=== PATIENT | female | born 1970 | race Caucasian/White ===

== ENCOUNTER 2017-06-04 22:40 | Inpatient (IN) | payer MEDICAID, SELFPAY ==
[2017-06-04 23:12] LABS: #Eosinphils 0.2 thou/uL (0.0-0.7); #Lymphocytes 1.5 thou/uL (1.20-3.40); #Monocytes 0.6 thou/uL (0.11-0.59); #Neutrophils 14.6 thou/uL (1.40-6.50); %Basophils 0.2 % (0.0-1.0); %Eosinophils 0.9 % (0.0-10.0); %Lymphocytes 8.8 % (21.0-51.0); %Monocytes 3.5 % (0.0-10.0); Hematocrit 34.1 % (36.0-47.0); Mean Platelet Volume 7.7 fL (7.4-10.4); Red Blood Cell (RBC) Count 3.76 mill/uL (4.20-5.40); White Blood Cell (WBC) Count 16.8 thou/uL (4.8-10.8)
[2017-06-04] MEDS ORDERED: Piperacillin/Tazobactam 4.5 GM VIAL ONE (23:21)
[2017-06-04] MEDS ORDERED: Promethazine HCl 25 MG/ML VIAL ONE (23:21)
[2017-06-04] MEDS ORDERED: Morphine Sulfate 2 MG/ML SYRINGE ONE (23:23)
[2017-06-04] MEDS ORDERED: Acetaminophen 325 MG TAB ONE (23:23)
[2017-06-04 23:29] LABS: Lactic Acid - Sepsis 2.1 mmol/L (0.5-2.2)
[2017-06-04 23:35] LABS: ALT (SGPT) 10 U/L (8-55); AST (SGOT) 15 U/L (5-34); Alkaline Phosphatase 136 U/L (40-150); Anion Gap 16 mmol/L (10-20); BUN (Urea Nitrogen) 20 mg/dL (7.0-18.7); Bilirubin, Total 0.8 mg/dL (0.2-1.2); Calc. Creatinine Clearance 0 mL/min (70-130); Calcium 9.2 mg/dL (7.8-10.44); Carbon Dioxide 22 mmol/L (22-29); Chloride 95 mmol/L (98-107); Estimated GFR-MDRD 32; Globulin 4.4 g/dL (2.4-3.5); Protein, Total 7.6 g/dL (6.0-8.3)
[2017-06-05] MEDS ORDERED: Vancomycin HCl 1.5 GM in Sodium Chloride 0.9% 250 ML 300 ML IVPB SCH (00:30)
[2017-06-05] MEDS ORDERED: Acetaminophen 325 MG TAB PO PRN (02:00)
[2017-06-05] MEDS ORDERED: Dextrose 5% in Water 1,000 ML IV PRN (02:00)
[2017-06-05] MEDS ORDERED: Dextrose 50% Abboject 50 ML SYRINGE SLOW IVP PRN (02:00)
[2017-06-05] MEDS: Ondansetron HCl/PF 4 MG/2 ML Vial IVP PRN ×3 (02:36→19:26)
[2017-06-05 02:56] VITALS: BMI 47.0
[2017-06-05 03:07] LABS: #Basophils 0.1 thou/uL (0.0-0.2); #Eosinphils 0.1 thou/uL (0.0-0.7); #Monocytes 1.1 thou/uL (0.11-0.59); #Neutrophils 13.6 thou/uL (1.40-6.50); %Basophils 0.5 % (0.0-1.0); %Eosinophils 0.7 % (0.0-10.0); %Lymphocytes 11.8 % (21.0-51.0); %Monocytes 6.3 % (0.0-10.0); Hematocrit 28.8 % (36.0-47.0); Red Blood Cell (RBC) Count 3.12 mill/uL (4.20-5.40); White Blood Cell (WBC) Count 16.8 thou/uL (4.8-10.8)
[2017-06-05] MEDS: Sodium Chloride 0.9% 1,000 ML IV SCH ×3 (03:10→20:32)
[2017-06-05 03:33] LABS: Anion Gap 15 mmol/L (10-20); BUN (Urea Nitrogen) 19 mg/dL (7.0-18.7); Calc. Creatinine Clearance 85 mL/min (70-130); Calcium 8.2 mg/dL (7.8-10.44); Carbon Dioxide 23 mmol/L (22-29); Chloride 98 mmol/L (98-107); Estimated GFR-MDRD 30
--- NOTE | 2017-06-05 03:43 | HP ---
DATE OF ADMISSION: 06/05/2017 CHIEF COMPLAINT: Pain and drainage from the left foot. HISTORY OF PRESENT ILLNESS: This is a 46-year-old pleasant lady, who was apparently in a usual stat e of health, had left fourth toe amputated, and I and D of the wound. Back in November, which apparent ly after wound care got better when she says that after she started walking on that foot, putting pr essure on that foot, around mid-April, it started opening up and started having some drainage. She went to the doctor, who told her to do wound care. She followed all the instructions once it becam e progressively worse, and for the last 2 days, this has been more swollen. Redness was spreading u p towards the knee and reports to have some fevers and chills too. For all this reason, she came in to the hospital. The patient denies any chest pain, shortness of breath, diarrhea, or dysuria. PAST MEDICAL HISTORY: Significant for diabetes, hypertension, hyperlipidemia, morbid obesity with e jection fraction of 53%, old stress test done on 07/2016 was negative. Also, complains of neuropath y, has no sensation in both the legs. PAST SURGICAL HISTORY: Multiple left knee surgery, arthroscopic diskectomy, appendectomy, cholecyst ectomy, , hysterectomy, left staghorn calculus, left fourth metatarsal removal, and I and D of wound of the left foot. SOCIAL HISTORY: Denies tobacco, alcohol, or recreational drug use. ALLERGIES: CODEINE. FAMILY HISTORY: Father has hypertension. MEDICATIONS: Please see MAR. REVIEW OF SYSTEMS: Significant for left foot redness, pain, and swelling, had some fever and chills , no headache, no appetite and latencies. No cough, no chest pain, diarrhea, dysuria or polyuria. No memory or mood changes. No neck pain. PHYSICAL EXAMINATION: VITAL SIGNS: Blood pressure 148/68, respirations 18, temperature 98, comfortably breathing on room air. GENERAL: Patient is lying in bed, in no apparent distress because of the pain. HEENT: Atraumatic, normocephalic. Pupils equally round, reactive to light. Extraocular movements intact. Mucous membranes moist. NECK: Supple. No JVD. CHEST: Breath sounds. There are no rales or rhonchi. CARDIOVASCULAR: S1, S2, no murmurs or gallops. ABDOMEN: Soft, obese. EXTREMITIES: Left foot is swollen with erythema spreading towards the knee. The wound was draining serosanguineous material. The patient's right side appears to be normal with no cyanosis, clubbing , or edema. The patient's peripheral pulses are present. LABORATORY DATA: WBC count is 16, hemoglobin is 11. Lactic acid was 2.1. Sodium is 129, creatinin e is 1.7. ASSESSMENT AND PLAN: 1. Diabetic wound of left foot. We will do wound cultures, blood cultures, IV antibiotics, vancomy ramiro, and Zosyn. We will consult Dr. Rivera in the morning and will consult Wound Care. 2. Hyponatremia. We will give the patient some IV fluids. 3. Acute renal failure, earlier creatinine in 2016 was 0.9. We will gently hydrate the patient and follow the creatinine. 4. Morbid obesity. The patient will be counseled diabetes on insulin sliding scale. 5. Hypertension. We will continue home medications and p.r.n. hydralazine. 6. Hyperlipidemia, stable. 7. Peripheral neuropathy, stable. Lovenox for deep venous thrombosis prophylaxis. I will work wit h the retail client solutions consultant for further caring for the patient.
[2017-06-05] MEDS: Morphine Sulfate 2 MG/ML SYRINGE SLOW IVP PRN ×3 (03:44→12:14)
[2017-06-05] MEDS: Piperacillin/Tazobactam 3.375 GM in Sodium Chloride 0.9% 100 ML IVPB SCH ×3 (06:04→17:32)
[2017-06-05] MEDS: Insulin Regular 300 UNITS/3 ML VIAL SC PRN ×4 (06:06→20:31)
--- NOTE | 2017-06-05 07:58 | RAD ---
CHEST 1 VIEW: HISTORY: Wound on bottom of foot. Emergency exam. COMPARISON: Chest 1 view, July 30, 2016. FINDINGS: Lungs are clear. No pneumothorax or effusion. Cardiac silhouette and mediastinal contours are norm al for technique. No displaced rib fracture. IMPRESSION: No acute intrathoracic abnormality. POS: [facility]
[2017-06-05] MEDS: Famotidine 20 MG TAB PO SCH (09:37)
[2017-06-05] MEDS: Enoxaparin Sodium 30 MG/0.3 ML SYRINGE SC SCH (09:37)
[2017-06-05] MEDS: Docusate 100 MG CAP PO SCH ×2 (09:37→20:30)
[2017-06-05] MEDS: Gabapentin 400 MG CAP PO SCH ×3 (09:37→20:30)
--- NOTE | 2017-06-05 10:09 | CT ---
PRELIMINARY REPORT/[facility]/EMERGENCY AFTER HOURS PROCEDURE: EXAM: CT Left Lower Extremity With Intravenous Contrast, Foot CLINICAL HISTORY: 46 years old, female; Pain; Foot; Left; Patient HX: R/O abscess TECHNIQUE: Axial computed tomography images of the left foot with intravenous contrast. CONTRAST: 60 mL of ISOVUE administered intravenously. COMPARISON: No relevant prior studies available. FINDINGS: Bones/joints: There is small lucency is around the osseous structures. There are destructive changes in the tarsal and tarsometatarsal joints. No acute fracture. No dislocation. Soft tissues: There is a large skin defect in the plantar aspect of the foot. There are smaller parth cent defects. There is subdjacent infiltrating soft tissue. There is diffuse soft tissue edema in th e foot. Calcifications in the soft tissues of the foot. No radiopaque foreign body. Other findings: The 4th digit is absent. IMPRESSION: 1. Destructive osseous changes in the foot. 2. Numerous osseous lucencies that may be due to osteoporosis or metastatic disease. 3. Large ulcer with underlying soft tissue that may represent a phlegmon no granulation tissue. No f luid collection is visible. 4. Soft tissue edema. Thank you for allowing us to participate in the care of your patient. Dictated and Authenticated by: Shashank Roth MD 06/05/2017 2:15 AM Central Time ([place] \T\ [place]) FINAL REPORT CT LEFT LOWER EXTREMITY WITH CONTRAST: HISTORY: Left foot wound. Infection. COMPARISON: None. FINDINGS: Ankle mortise is congruent. There are large erosions throughout the mid foot. There is osteopenia throughout the hindfoot and m id foot. There is subluxation at the Lisfranc interval. Large erosions are noted of the 2nd-5th tarsometatar alfonso joints. There is osseous destruction and debris. SOFT TISSUES: There is a large plantar ulcer with phlegmonous material extending into the muscular into the mid fo ot. Extensive anterolateral soft tissue edema. There appears to be a prior amputation of the 4th metatarsophalangeal joint. IMPRESSION: Large plantar ulcer of the mid foot with extensive osseous debris and destruction. This is felt to most likely represent an infected Charcot arthropathy. POS: [facility]
--- NOTE | 2017-06-05 12:08 | CON ---
DATE OF CONSULTATION: 06/05/2017 REASON FOR CONSULTATION: Left foot inflammatory process. HISTORY OF PRESENT ILLNESS: A 46-year-old patient who has a history of type 2 diabetes mellitus wit h neuropathy, hypertension, hyperlipidemia, obesity, and prior left fourth toe amputation which was carried out I believe in [place] earlier this year who developed a rapidly progressive ulceratio n in the bottom aspect of the left foot plantar aspect. The patient was managed with wound care lore ne, but then over the past few days, the inflammatory process has markedly worsened with redness ext ending towards the left knee. She has had associated fever and chills and therefore she has been ad mitted. Initial findings with BP 140/60, respirations 18, temperature 98, in no distress. NECK: Supple. LUNGS: With symmetric clear breath sounds. HEART: S1, S2 with regular rate. ABDOMEN: Soft. EXTREMITIES: Left foot is swollen with erythema spreading towards the knee. There is an open wound in the bottom aspect of the left foot which is described below. LABORATORY DATA: White cell count 16,000 and lactic acid 2.1, creatinine 1.7, which is higher than her recent baseline. A CT of the foot has been just recently completed and showed destructive osseo us changes in the foot and tarsometatarsal joints. There is evidence of phlegmonous material extend ing into the muscular layers into the mid foot region. REVIEW OF SYSTEMS: Currently, she appears in no distress. She has pain mostly localized to the lef t leg actually. The foot is pretty much senseless due to neuropathy. No headaches, visual symptoms , sore throat, odynophagia, dysphagia, no cough or sputum production or chest pain, no abdominal jatin n or diarrhea. No genitourinary symptoms. The left knee is somewhat painful, but more of the pain is localized to the leg actually than the knee itself. No neurological symptoms other than the neur opathic symptoms. PAST MEDICAL HISTORY: Type 2 diabetes, obesity, neuropathy, left 4th toe amputation, negative stres s test completed in 2016. PAST SURGICAL HISTORY: Knee replacement left side, cholecystectomy, , hysterectomy, stagho rn calculus removal. SOCIAL HISTORY: Quit smoking 18 years prior to this visit. No alcoholic beverage use. Lives in [facility] and commutes to this area to spend time with family members. ALLERGIES: CODEINE with mostly gastrointestinal symptoms. FAMILY HISTORY: Hypertension. CURRENT MEDICATIONS: Norvasc, Colace, Cymbalta, Lovenox, Pepcid, Neurontin, Apresoline, Zosyn and s he received 1 dose of vancomycin. PHYSICAL EXAMINATION: VITAL SIGNS: T-max 98.8, BP 120/74, pulse of 93-100, respiratory rate 20-22, O2 saturation 97%. GENERAL: Appears in no distress. SKIN: Shows the areas of scattered erythema in a circumferential distribution left leg and also eduardo thema in the plantar aspect of the left foot. There is an open wound in the left foot measuring abo ut 3 cm, round shaped with a thick callus surrounding it. The base is about 50% red tissue and then 50% of grayish tissue, no bone exposure is noted. No lymphadenopathy. HEENT: Noncontributory. NECK: Supple, no jugular venous distention. LUNGS: With symmetric clear breath sounds. HEART: S1, S2, regular rate. No S3 or S4. ABDOMEN: Soft, not distended or tender. No ascites. No bladder distention. EXTREMITIES: The left knee arthroplasty site has somewhat diminished range of motion, most likely d ue to the edema. The knee itself does not appear painful to the patient. The leg is quite painful to palpation, though. Microbiology data; we have pending blood cultures at this time. LABORATORY: White cell count 16.8, hemoglobin 9.8, platelets 247. Sodium 132, creatinine 1.83. ASSESSMENT: 1. Type 2 diabetes with severe neuropathy. 2. Chronic plantar ulcer, left foot, with now inflammatory complications. 3. Possible associated Charcot's arthropathy mid foot region and foot, left side. 4. Cellulitis, left leg. DISCUSSION: The process, appears to be quite extensive. An MRI would give us a better resolution i n terms of presence of an abscess and most likely she will need surgical debridement, ideally explor ation of the plantar aspect and see if we could be managed conservatively short of amputation. Cont inue the current regimen and continue vancomycin dosing per pharmacy schedule according to trough le vels with a target 15-20 mcg per mL. Monitor blood cultures. She will need an arterial duplex eduardo dy to evaluate the vascular supply.
--- NOTE | 2017-06-05 13:50 | PDOC.PN ---
- Subjective Encounter Start Date: 06/05/17 Encounter Start Time: 13:47 Subjective: pain in R foot - Objective MAR Reviewed: Yes Vital Signs & Weight: Vital Signs (12 hours) Temp Pulse Resp BP Pulse Ox 06/05/17 11:27 99 F 105 H 22 H 130/83 98 06/05/17 07:48 98.5 F 103 H 22 H 128/74 97 06/05/17 04:00 98.8 F 101 H 20 121/74 97 06/05/17 02:55 98.2 F 93 20 122/78 98 06/05/17 02:20 98.2 F 93 20 98 Weight Admit Weight 309 lb 6.4 oz Weight 309 lb 6.4 oz I&O: 06/04/17 06/05/17 06/06/17 06:59 06:59 06:59 Intake Total 1047 Balance 1047 Result Diagrams: 06/05/17 02:51 06/05/17 02:51 Additional Labs: Accuchecks 06/05/17 06/05/17 06/05/17 11:29 05:18 02:33 POC Glucose 446 H 447 H 460 H Phys Exam - Physical Examination Constitutional: NAD Neck: no JVD Respiratory: clear to auscultation bilateral Cardiovascular: RRR, no significant murmur Gastrointestinal: soft, non-tender, positive bowel sounds 2+ edema Deviation from normal: erythema from ankle to knee on left Dx/Plan (1) Cellulitis and abscess of lower extremity Code(s): L03.119 - CELLULITIS OF UNSPECIFIED PART OF LIMB; L02.419 - CUTANEOUS ABSCESS OF LIMB, UNSPECIFIED Status: Acute (2) Diabetes mellitus type II, uncontrolled Code(s): E11.65 - TYPE 2 DIABETES MELLITUS WITH HYPERGLYCEMIA Status: Chronic Qualifiers: Diabetes mellitus complication detail: with polyneuropathy (3) HTN (hypertension) Code(s): I10 - ESSENTIAL (PRIMARY) HYPERTENSION Status: Chronic Qualifiers: Hypertension type: essential hypertension Qualified Code(s): I10 - Essential (primary) hypertension Comment: Labile, resume home meds, serial monitoring (4) Hyperlipidemia Code(s): E78.5 - HYPERLIPIDEMIA, UNSPECIFIED Status: Chronic Comment: Recommend statin for d/c (5) Morbid obesity Code(s): E66.01 - MORBID (SEVERE) OBESITY DUE TO EXCESS CALORIES Status: Chronic Comment: Caloric restriction, heart healthy/ADA diet - Plan cont iv antibx -: apprciate Dr Rivera input- MRI foot ordered -: cont iv antibx, anagesia -: accu/ss/ etc -: selected home meds * .
[2017-06-05 13:55] LABS: Hemoglobin A1c 13.6 % (4.0-6.0)
[2017-06-05] MEDS: Promethazine HCl 25 MG/ML VIAL IM/IV PRN (16:12)
[2017-06-05] MEDS ORDERED: ISOVUE-370 76%-LOCM 1 ML ONE (16:22)
[2017-06-05] MEDS ORDERED: Non-Formulary Item 1 EACH (Oxycodone Hcl/Acetaminophen [Percocet] 1 TABLET) PO SCH (17:00)
[2017-06-05] MEDS: oxyCODONE 5 MG TAB PO SCH ×2 (17:34→20:30)
[2017-06-05] MEDS: Acetaminophen 325 MG TAB PO SCH ×2 (17:34→20:30)
[2017-06-05] MEDS: Insulin Detemir 100 UNITS/ML 40 UNITS in Pre-Filled Syringe 1 EACH SC SCH (20:31)
--- NOTE | 2017-06-05 20:50 | MRI ---
LEFT FOOT MRI WITHOUT IV CONTRAST: History: 46-year old female with left foot ulcer and concern for abscess. Patient has a plantar wound, histor y of prior surgery. Comparison: CT scan, 06-05-17. FINDINGS: There is a large plantar ulcer and associated open wound and scar. There is focal metal susceptibili ty artifact from the soft tissue in the mid plantar region at approximately the fourth metatarsal. T here is disruption of the midfoot joint with extensive erosions and osteopenia and extensive fragmen tation and focal calcifications or ossifications. There have been amputation changes of the fore toe at the distal fourth metatarsal. There is fairly extensive abnormal soft tissue changes within the plantar surface of the foot deep to the large ulcer and wound, but no evidence for a focal drainable abscess. There is no significant abnormal T2 hyperintense or T1 hypointense changes within the bone s of the midfoot immediately adjacent to this large wound. There are, however, some abnormal T1 hypointensity and T2 hyperintensity changes involving the dista l second and third metatarsal heads. These are concerning for at least significant nonspecific ostei tis and could well represent early osteomyelitis given both T1 and T2 changes. I do not see a defini te open wound in association with these two toes, however. There is prominent anterior foot and lowe r ankle soft tissue swelling and edematous changes. IMPRESSION: Marked midfoot bony deformity with subluxation/dislocation of the mid foot evidence for severe Charc ot joint changes. Large plantar ulcer or wound with some abnormal soft tissue signal extending up to near the midfoot bony structures but no evidence of a focal drainable abscess. Abnormal T2 hyperint ensity involving the midfoot intrinsic muscles. The peroneus longus tendon appears to be disrupted d istally at the level of the midfoot. Abnormal T2 hyperintense and T1 hypointense bony changes involv ing the second and third metatarsal heads, worrisome for at least significant nonspecific osteitis w ith the possibility of early osteomyelitis not being excluded although I do not identify a specific adjacent ulcer. Some nonspecific T2 hyperintensity T1 hypointense changes in the subchondral regions of the tibiotalar joint, the fibular talar joint, the medial subtalar joint and lateral subtalar dontae int, nonspecific. Possibly nonspecific marrow reaction changes in the midfoot. Metal susceptibility artifact within the plantar soft tissues of the midfoot. No evidence for drainable abscess. POS: [facility]
[2017-06-06] MEDS: Promethazine HCl 25 MG/ML VIAL IM/IV PRN ×2 (00:03→08:30)
[2017-06-06] MEDS: Piperacillin/Tazobactam 3.375 GM in Sodium Chloride 0.9% 100 ML IVPB SCH ×4 (00:04→17:28)
[2017-06-06] MEDS: Ondansetron HCl/PF 4 MG/2 ML Vial IVP PRN ×2 (03:22→21:12)
[2017-06-06] MEDS: Insulin Regular 300 UNITS/3 ML VIAL SC PRN (05:17)
[2017-06-06 05:23] LABS: Anion Gap 15 mmol/L (10-20); BUN (Urea Nitrogen) 20 mg/dL (7.0-18.7); Calc. Creatinine Clearance 82 mL/min (70-130); Calcium 8.8 mg/dL (7.8-10.44); Carbon Dioxide 21 mmol/L (22-29); Chloride 101 mmol/L (98-107); Estimated GFR-MDRD 28
[2017-06-06 05:53] LABS: Band 6 % (5-11); Hematocrit 31.3 % (36.0-47.0); Mean Platelet Volume 8.6 fL (7.4-10.4); Neutrophil 77 % (42-75); Red Blood Cell (RBC) Count 3.37 mill/uL (4.20-5.40); White Blood Cell (WBC) Count 12.5 thou/uL (4.8-10.8)
[2017-06-06] MEDS ORDERED: Temazepam 15 MG CAP PO PRN (07:52)
[2017-06-06] MEDS ORDERED: Chloraseptic Spray 180 ml Bottle PO PRN (07:52)
[2017-06-06] MEDS ORDERED: Sodium Chloride 0.65% Nasal 44 ML BOT EA NARE PRN (07:52)
[2017-06-06] MEDS ORDERED: Eucerin (Mineral Oil/Petrolatum,White) 30 gm Jar TOP PRN (07:52)
[2017-06-06] MEDS ORDERED: Loperamide HCl 2 MG CAP PO PRN (07:52)
[2017-06-06] MEDS ORDERED: Artificial Tears 18 DROP/0.9 ML EA EYE PRN (07:52)
[2017-06-06] MEDS ORDERED: Ondansetron ODT 4 MG TAB PO PRN (07:52)
[2017-06-06] MEDS ORDERED: Milk Of Magnesia 30 ML UDCUP PO PRN (07:52)
[2017-06-06] MEDS ORDERED: Senokot 8.6 MG TAB PO PRN (07:52)
[2017-06-06] MEDS ORDERED: Mag-Al 1200 mg/1200 mg/30 ML UDCUP PO PRN (07:52)
[2017-06-06] MEDS ORDERED: Diabetic Tussin 200 MG/10 ML UDCUP PO PRN (07:52)
[2017-06-06] MEDS ORDERED: Loratadine 10 MG TAB PO PRN (07:52)
[2017-06-06] MEDS ORDERED: HumaLOG 300 UNITS/3 ML VIAL SC PRN (07:55)
[2017-06-06] MEDS: Sodium Chloride 0.9% 1,000 ML IV SCH ×4 (08:00→21:17)
[2017-06-06] MEDS: Acetaminophen 325 MG TAB PO SCH ×4 (08:30→21:02)
[2017-06-06] MEDS: oxyCODONE 5 MG TAB PO SCH ×4 (08:31→21:11)
[2017-06-06] MEDS ORDERED: Lisinopril/Hydrochlorothiazide 10 mg/12.5 mg Tablet PO SCH (09:00)
[2017-06-06] MEDS: Docusate 100 MG CAP PO SCH ×2 (10:08→21:02)
[2017-06-06] MEDS: Insulin Detemir 100 UNITS/ML 40 UNITS in Pre-Filled Syringe 1 EACH SC SCH ×2 (10:09→21:02)
[2017-06-06] MEDS: Gabapentin 100 MG CAP PO SCH ×3 (10:09→21:01)
[2017-06-06] MEDS: Famotidine 20 MG TAB PO SCH (10:09)
[2017-06-06] MEDS: Enoxaparin Sodium 30 MG/0.3 ML SYRINGE SC SCH (10:12)
--- NOTE | 2017-06-06 11:24 | PDOC.PN ---
- Subjective Encounter Start Date: 06/06/17 Encounter Start Time: 07:50 -: old records requested/rev Patient seen and examined. No new complaints. No overnight events - Objective MAR Reviewed: Yes Vital Signs & Weight: Vital Signs (12 hours) Temp Pulse Resp BP BP Pulse Ox 06/06/17 10:08 100 124/73 06/06/17 07:55 98.6 F 100 16 124/73 100 06/06/17 04:00 99.7 F H 112 H 20 119/76 94 L 06/06/17 02:19 92 L 06/06/17 00:00 99.1 F 108 H 20 142/98 H 92 L Weight Admit Weight 309 lb 6.4 oz Weight 309 lb 6.4 oz I&O: 06/05/17 06/06/17 06/07/17 06:59 06:59 06:59 Intake Total 1047 1776 Balance 1047 1776 Result Diagrams: 06/06/17 04:05 06/06/17 04:05 Additional Labs: Accuchecks 06/06/17 06/05/17 06/05/17 04:24 20:05 16:44 POC Glucose 280 H 474 H 445 H 06/05/17 11:29 POC Glucose 446 H Radiology Reviewed by me: Yes (MRI) Phys Exam - Physical Examination Constitutional: NAD HEENT: PERRLA, moist MMs, sclera anicteric Neck: no JVD, supple Respiratory: no wheezing, no rales, no rhonchi Cardiovascular: RRR, no significant murmur, no rub Gastrointestinal: soft, non-tender, no distention, positive bowel sounds morbid obesity Musculoskeletal: edema present left foot with dressing Neurological: non-focal, normal sensation Lymphatic: no nodes Psychiatric: normal affect, A&O x 3 Skin: no rash, normal turgor Dx/Plan (1) Acute kidney failure Status: Acute (2) Cellulitis and abscess of lower extremity Code(s): L03.119 - CELLULITIS OF UNSPECIFIED PART OF LIMB; L02.419 - CUTANEOUS ABSCESS OF LIMB, UNSPECIFIED Status: Acute (3) Hyperglycemia due to type 2 diabetes mellitus Code(s): E11.65 - TYPE 2 DIABETES MELLITUS WITH HYPERGLYCEMIA Status: Acute (4) Hyponatremia Code(s): E87.1 - HYPO-OSMOLALITY AND HYPONATREMIA Status: Acute (5) Sepsis with acute organ dysfunction Code(s): A41.9 - SEPSIS, UNSPECIFIED ORGANISM; R65.20 - SEVERE SEPSIS WITHOUT SEPTIC SHOCK Status: Acute (6) Anxiety and depression Code(s): F41.8 - OTHER SPECIFIED ANXIETY DISORDERS Status: Chronic (7) Diabetes mellitus type II, uncontrolled Code(s): E11.65 - TYPE 2 DIABETES MELLITUS WITH HYPERGLYCEMIA Status: Chronic Qualifiers: Diabetes mellitus complication detail: with polyneuropathy (8) HTN (hypertension) Code(s): I10 - ESSENTIAL (PRIMARY) HYPERTENSION Status: Chronic Qualifiers: Hypertension type: essential hypertension Qualified Code(s): I10 - Essential (primary) hypertension Comment: (9) Hyperlipidemia Code(s): E78.5 - HYPERLIPIDEMIA, UNSPECIFIED Status: Chronic Comment: (10) Morbid obesity with BMI of 45.0-49.9, adult Code(s): E66.01 - MORBID (SEVERE) OBESITY DUE TO EXCESS CALORIES; Z68.42 - BODY MASS INDEX (BMI) 45.0-49.9, ADULT Status: Chronic - Plan cont current plan of care, continue antibiotics * continue zosyn * wound care * ID consulted. * follow culture * medication reviewed as below * symptomatic treatment * selected home medication Review of Systems - Review of Systems ENT: negative: Ear Pain, Ear Discharge, Nose Pain, Nose Discharge, Nose Congestion, Mouth Pain, Mouth Swelling, Throat Pain, Throat Swelling, Other Respiratory: negative: Cough, Dry, Shortness of Breath, Hemoptysis, SOB with Excertion, Pleuritic Pain, Sputum, Wheezing Cardiovascular: negative: Chest Pain, Palpitations, Orthopnea, Paroxysmal Noc. Dyspnea, Edema, Light Headedness, Other Gastrointestinal: negative: Nausea, Vomiting, Abdominal Pain, Diarrhea, Constipation, Melena, Hematochezia, Other Genitourinary: negative: Dysuria, Frequency, Incontinence, Hematuria, Retention , Other Musculoskeletal: negative: Neck Pain, Shoulder Pain, Arm Pain, Back Pain, Hand Pain, Leg Pain, Foot Pain, Other - Medications/Allergies Allergies/Adverse Reactions: Allergies Allergy/AdvReac Type Severity Reaction Status Date / Time codeine AdvReac Verified 06/05/17 03:31 Medications: Current Medications Acetaminophen (Tylenol) 650 mg PO Q4H PRN PRN Reason: Headache/Fever or Pain Acetaminophen (Tylenol) 325 mg PO QID [facility] Last Admin: 06/06/17 08:30 Dose: 325 mg Al Hydroxide/Mg Hydroxide (Maalox) 15 ml PO Q4H PRN PRN Reason: Heartburn or Indigestion Amlodipine Besylate (Norvasc) 5 mg PO DAILY [facility] Last Admin: 06/06/17 10:08 Dose: 5 mg Artificial Tears (Tears Naturale) 0 drop EA EYE PRN PRN PRN Reason: Dry Eyes Dextrose/Water (Dextrose 50%) 25 gm SLOW IVP PRN PRN PRN Reason: Hypoglycemia Docusate Sodium (Colace) 100 mg PO BID [facility] Last Admin: 06/06/17 10:08 Dose: 100 mg Duloxetine HCl (Cymbalta) 60 mg PO DAILY [facility] Last Admin: 06/06/17 10:08 Dose: 60 mg Enoxaparin Sodium (Lovenox) 30 mg SC 09 [facility] Last Admin: 06/06/17 10:12 Dose: 30 mg Famotidine (Pepcid) 20 mg PO DAILY [facility] Last Admin: 06/06/17 10:09 Dose: 20 mg Gabapentin (Neurontin) 100 mg PO TID [facility] Last Admin: 06/06/17 10:09 Dose: 100 mg Glucagon (Glucagon) 1 mg IM PRN PRN PRN Reason: Hypoglycemia Guaifenesin (Robitussin Sf) 200 mg PO Q4H PRN PRN Reason: Cough Hydralazine HCl (Apresoline) 10 mg SLOW IVP Q4H PRN PRN Reason: Systolic BP > 180 Dextrose/Water (D5w) 1,000 mls @ 0 mls/hr IV .Q0M PRN; As Directed PRN Reason: Hypoglycemia Piperacillin Sod/Tazobactam (Sod 3.375 gm/ Sodium Chloride) 100 mls @ 200 mls/ hr IVPB Q6HR [facility] Stop: 06/10/17 06:01 Last Admin: 06/06/17 05:17 Dose: 100 mls Insulin Detemir 40 units/ (Miscellaneous Medication) 0.4 mls @ 0 mls/hr SC BID [facility] Last Admin: 06/06/17 10:09 Dose: 0.4 mls Sodium Chloride (Normal Saline 0.9%) 1,000 mls @ 125 mls/hr IV .Q8H [facility] Last Admin: 06/06/17 10:42 Dose: 1,000 mls Insulin Human Lispro (Humalog) 0 units SC .AGGRESSIVE SLIDING PRN PRN Reason: Aggressive Correctional Scale Insulin Human Lispro (Humalog) 0 units SC .BEDTIME SLIDING SC PRN PRN Reason: Bedtime Correctional Scale Loperamide HCl (Imodium) 2 mg PO PRN PRN PRN Reason: Diarrhea/Loose Stools Loratadine (Claritin) 10 mg PO DAILYPRN PRN PRN Reason: Sinus Symptoms Magnesium Hydroxide (Milk Of Magnesium) 30 ml PO DAILYPRN PRN PRN Reason: Constipation Mineral Oil/White Petrolatum (Eucerin Cream) 0 gm TOP BIDPRN PRN PRN Reason: Dry Skin Morphine Sulfate (Morphine Sulfate) 1 mg SLOW IVP Q3H PRN PRN Reason: Pain Last Admin: 06/05/17 12:14 Dose: 1 mg Morphine Sulfate (Morphine Sulfate) 4 mg SLOW IVP Q4H PRN PRN Reason: Pain Last Admin: 06/06/17 10:43 Dose: 4 mg Ondansetron HCl (Zofran) 4 mg IVP Q6H PRN PRN Reason: Nausea/Vomiting Last Admin: 06/06/17 03:22 Dose: 4 mg Ondansetron HCl (Zofran Odt) 4 mg PO Q6H PRN PRN Reason: Nausea/Vomiting Oxycodone HCl (Oxycodone Ir) 10 mg PO QID [facility] Last Admin: 06/06/17 08:31 Dose: 10 mg Phenol (Chloraseptic [place] 180 Ml Bot) 0 ml PO PRN PRN PRN Reason: Sore Throat Promethazine HCl (Phenergan) 25 mg IM/IV Q6H PRN PRN Reason: Nausea/Vomiting Last Admin: 06/06/17 08:30 Dose: 25 mg Senna (Senokot) 2 tab PO HSPRN PRN PRN Reason: Constipation Sodium Chloride ([place] Nasal [place] 0.65%) 0 ml EA NARE QIDPRN PRN PRN Reason: Nasal Congestion Sodium Chloride (Flush - Normal Saline) 10 ml IVF Q12HR [facility] Last Admin: 06/06/17 10:12 Dose: Not Given Sodium Chloride (Flush - Normal Saline) 10 ml IVF PRN PRN PRN Reason: Saline Flush Temazepam (Restoril) 15 mg PO HSPRN PRN PRN Reason: Insomnia
[2017-06-06] MEDS: HumaLOG 300 UNITS/3 ML VIAL SC PRN ×2 (12:16→17:30)
[2017-06-06] MEDS: PROMETHAZINE HCL IVPB PRN (15:40)
[2017-06-06] MEDS: SODIUM CHLORIDE IVPB PRN (15:40)
[2017-06-06] MEDS: ADMIXTURE FEE IVPB PRN (15:40)
[2017-06-06 16:07] LABS: Bilirubin Negative (Negative); Blood, Urine Small (Negative); Glucose, Urine (Dipstick) >=1000 mg/dL (Negative); Ketone, Urine Negative (Negative); Nitrite Negative (Negative); Protein, Urine (Dipstick) 300 mg/dL (Neg-Trace); Urobilinogen 0.2 mg/dL (0.2-1.0)
[2017-06-06 16:26] LABS: Hyaline Casts/LPF 7-10 HYALINE CAST LPF (0-3 Hyaline); Squamous Epithelial 21-50 HPF (0-3)
[2017-06-06 16:52] LABS: Bacteria/HPF 2+ HPF (None Seen); RBC/HPF 0-3 HPF (0-3); Yeast-All Forms None Seen HPF (None Seen)
[2017-06-07] MEDS: Piperacillin/Tazobactam 3.375 GM in Sodium Chloride 0.9% 100 ML IVPB SCH ×4 (00:02→17:42)
[2017-06-07] MEDS: Promethazine HCl 25 MG/ML VIAL IM/IV PRN (01:18)
--- NOTE | 2017-06-07 02:06 | PRG ---
DATE OF SERVICE: 06/06/2017 SUBJECTIVE: Ms. Wilkes is having episodes of nausea when she tries to sit up or stand up. A very dayna rly reproducible symptoms, also throbbing of the left leg, not hurting as much as before though. No shortness of breath or chest pain, no diarrhea. Voiding without difficulty. OBJECTIVE: VITAL SIGNS: T-max 99.7, blood pressure 130/80, pulse 91-108, respirations 18 and O2 sat 96%. GENERAL: Patient was sleeping when I came in the room, but she was easily arousable, did not appear in acute distress, somewhat flushed facial skin. HEENT: Ocular movements are conjugate. LUNGS: With symmetric air entry. HEART: S1 and S2. Regular rate without murmurs. ABDOMEN: Soft. Not distended or tender. EXTREMITIES: Left leg with marked improvement in erythema. The left knee range of motion is painle ss. Left foot has less erythema as well, still with swelling noted before with plantar ulcer with 1 00% granulating area. LABORATORY DATA: Showed a white cell count down to 12.5, hemoglobin 10.7 and platelets 265. Sodium 132 and creatinine 1.9, which is stable from prior values. Microbiology from the foot, this is fro m the ulcer itself, it could be a colonization of the sample of the surface of the ulcer rather than the represented true pathogen. Three different gram-negative rods isolated. Two sets of blood cul tures thus far negative. There is an MRI from 06/05 and this shows marked mid foot bony deformity w ith subluxation and dislocation, which has evidence of severe Charcot joint changes. There is abnor mal soft tissue signal extending up near the mid foot bony structures, but no evidence of a focal dr tiny abscess. There is disruption of some tendon in the mid foot region and second and third met atarsals may have osteitis. Although, there is no ulceration near it, it is more likely to represen t also areas of Charcot change. 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 The changes in the CT scan in the face of the current MRI are more likely a reflection of Charcot associated arthropathy rather than infection and I would treat for the time being as such with just antimicrobial therapy. There is a high like lihood of continuing complications in the left foot in view of the severe neuropathy and Charcot and this will have a high risk for eventual amputation. In terms of antimicrobial therapy, continue th e current regimen and eventually transition to dual regimen depending on clinical response. Another option will be to continue IV therapy, but we will see what the susceptibilities of the organisms i solated are and make plans according to those.
[2017-06-07] MEDS: Ondansetron HCl/PF 4 MG/2 ML Vial IVP PRN ×2 (05:17→11:45)
[2017-06-07 05:29] LABS: #Eosinphils 0.2 thou/uL (0.0-0.7); #Lymphocytes 1.6 thou/uL (1.20-3.40); #Monocytes 0.6 thou/uL (0.11-0.59); #Neutrophils 9.6 thou/uL (1.40-6.50); %Basophils 0.4 % (0.0-1.0); %Eosinophils 1.6 % (0.0-10.0); %Lymphocytes 13.1 % (21.0-51.0); %Monocytes 4.7 % (0.0-10.0); Hematocrit 32.7 % (36.0-47.0); Mean Platelet Volume 7.7 fL (7.4-10.4); Red Blood Cell (RBC) Count 3.46 mill/uL (4.20-5.40)
[2017-06-07 05:38] LABS: Hemoglobin A1c 13.2 % (4.0-6.0)
[2017-06-07 05:53] LABS: ALT (SGPT) 24 U/L (8-55); AST (SGOT) 29 U/L (5-34); Alkaline Phosphatase 142 U/L (40-150); Anion Gap 15 mmol/L (10-20); BUN (Urea Nitrogen) 24 mg/dL (7.0-18.7); Bilirubin, Total 0.3 mg/dL (0.2-1.2); Calc. Creatinine Clearance 81 mL/min (70-130); Calcium 9.2 mg/dL (7.8-10.44); Carbon Dioxide 21 mmol/L (22-29); Chloride 105 mmol/L (98-107); Estimated GFR-MDRD 28; Globulin 4.4 g/dL (2.4-3.5); Phosphorus 4.5 mg/dL (2.3-4.7); Protein, Total 7.3 g/dL (6.0-8.3)
[2017-06-07] MEDS: ADMIXTURE FEE IVPB PRN ×3 (07:57→21:25)
[2017-06-07] MEDS: Sodium Chloride 0.9% 1,000 ML IV SCH ×2 (07:57→17:41)
[2017-06-07] MEDS: PROMETHAZINE HCL IVPB PRN ×3 (07:57→21:25)
[2017-06-07] MEDS: SODIUM CHLORIDE IVPB PRN ×3 (07:57→21:25)
[2017-06-07] MEDS: Enoxaparin Sodium 30 MG/0.3 ML SYRINGE SC SCH (07:59)
[2017-06-07] MEDS: Gabapentin 100 MG CAP PO SCH ×3 (08:00→21:21)
[2017-06-07] MEDS: oxyCODONE 5 MG TAB PO SCH ×4 (08:00→21:21)
[2017-06-07] MEDS: Docusate 100 MG CAP PO SCH ×2 (08:02→21:21)
[2017-06-07] MEDS: Famotidine 20 MG TAB PO SCH (08:02)
[2017-06-07] MEDS: Acetaminophen 325 MG TAB PO SCH (08:18)
[2017-06-07] MEDS: Insulin Detemir 100 UNITS/ML 40 UNITS in Pre-Filled Syringe 1 EACH SC SCH ×2 (09:08→21:21)
[2017-06-07] MEDS ORDERED: Bisacodyl 10 MG SUPP PR PRN (11:49)
[2017-06-07] MEDS ORDERED: Magnesium Citrate 300 ML BOT PO SCH (12:00)
--- NOTE | 2017-06-07 13:01 | PDOC.PN ---
- Subjective Encounter Start Date: 06/07/17 Encounter Start Time: 09:40 she has nausea, reports that she does not have BM for 4 days, no fever - Objective MAR Reviewed: Yes Vital Signs & Weight: Vital Signs (12 hours) Temp Pulse Resp BP BP BP Pulse Ox 06/07/17 11:13 97.9 F 99 18 138/87 95 06/07/17 08:00 98.2 F 98 16 148/85 H 96 06/07/17 07:14 98.2 F 98 16 148/85 H 96 06/07/17 04:59 97.6 F 100 20 126/79 100 06/07/17 03:23 96 Weight Admit Weight 309 lb 6.4 oz Weight 309 lb 6.4 oz I&O: 06/06/17 06/07/17 06/08/17 06:59 06:59 06:59 Intake Total 1776 2879 Balance 1776 2879 Result Diagrams: 06/07/17 05:08 06/07/17 05:08 Additional Labs: Accuchecks 06/07/17 06/07/17 06/06/17 11:13 05:02 21:10 POC Glucose 91 138 H 176 H 06/06/17 16:07 POC Glucose 179 H Phys Exam - Physical Examination Constitutional: NAD HEENT: PERRLA, moist MMs, sclera anicteric Neck: no JVD, supple Respiratory: no wheezing, no rales, no rhonchi Cardiovascular: RRR, no significant murmur, no rub Gastrointestinal: soft, non-tender, no distention obesity+ left foot with dressing Neurological: non-focal, normal sensation, moves all 4 limbs Psychiatric: normal affect, A&O x 3 Skin: no rash, normal turgor Dx/Plan (1) Acute kidney failure Status: Acute (2) Cellulitis and abscess of lower extremity Code(s): L03.119 - CELLULITIS OF UNSPECIFIED PART OF LIMB; L02.419 - CUTANEOUS ABSCESS OF LIMB, UNSPECIFIED Status: Acute (3) Hyperglycemia due to type 2 diabetes mellitus Code(s): E11.65 - TYPE 2 DIABETES MELLITUS WITH HYPERGLYCEMIA Status: Acute (4) Hyponatremia Code(s): E87.1 - HYPO-OSMOLALITY AND HYPONATREMIA Status: Acute (5) Sepsis with acute organ dysfunction Code(s): A41.9 - SEPSIS, UNSPECIFIED ORGANISM; R65.20 - SEVERE SEPSIS WITHOUT SEPTIC SHOCK Status: Acute (6) Anxiety and depression Code(s): F41.8 - OTHER SPECIFIED ANXIETY DISORDERS Status: Chronic (7) Diabetes mellitus type II, uncontrolled Code(s): E11.65 - TYPE 2 DIABETES MELLITUS WITH HYPERGLYCEMIA Status: Chronic Qualifiers: Diabetes mellitus complication detail: with polyneuropathy (8) HTN (hypertension) Code(s): I10 - ESSENTIAL (PRIMARY) HYPERTENSION Status: Chronic Qualifiers: Hypertension type: essential hypertension Qualified Code(s): I10 - Essential (primary) hypertension Comment: (9) Hyperlipidemia Code(s): E78.5 - HYPERLIPIDEMIA, UNSPECIFIED Status: Chronic Comment: (10) Morbid obesity with BMI of 45.0-49.9, adult Code(s): E66.01 - MORBID (SEVERE) OBESITY DUE TO EXCESS CALORIES; Z68.42 - BODY MASS INDEX (BMI) 45.0-49.9, ADULT Status: Chronic - Plan cont current plan of care, continue antibiotics * follow up on culture to decide about final antibiotics * will give magnesium citrate and dulcolax as needed * medication reviewed as below * symptomatic treatment.. Review of Systems - Review of Systems Eyes: negative: Pain, Vision Change, Conjunctivae Inflammation, Eyelid Inflammation, Redness, Other ENT: negative: Ear Pain, Ear Discharge, Nose Pain, Nose Discharge, Nose Congestion, Mouth Pain, Mouth Swelling, Throat Pain, Throat Swelling, Other Respiratory: negative: Cough, Dry, Shortness of Breath, Hemoptysis, SOB with Excertion, Pleuritic Pain, Sputum, Wheezing Cardiovascular: negative: Chest Pain, Palpitations, Orthopnea, Paroxysmal Noc. Dyspnea, Edema, Light Headedness, Other Gastrointestinal: Nausea, Constipation. negative: Vomiting, Abdominal Pain, Diarrhea, Melena, Hematochezia, Other Genitourinary: negative: Dysuria, Frequency, Incontinence, Hematuria, Retention , Other Musculoskeletal: negative: Neck Pain, Shoulder Pain, Arm Pain, Back Pain, Hand Pain, Leg Pain, Foot Pain, Other - Medications/Allergies Allergies/Adverse Reactions: Allergies Allergy/AdvReac Type Severity Reaction Status Date / Time codeine AdvReac Verified 06/05/17 03:31 Medications: Current Medications Acetaminophen (Tylenol) 650 mg PO Q4H PRN PRN Reason: Headache/Fever or Pain Al Hydroxide/Mg Hydroxide (Maalox) 15 ml PO Q4H PRN PRN Reason: Heartburn or Indigestion Amlodipine Besylate (Norvasc) 5 mg PO DAILY [facility] Last Admin: 06/07/17 08:00 Dose: 5 mg Artificial Tears (Tears Naturale) 0 drop EA EYE PRN PRN PRN Reason: Dry Eyes Bisacodyl (Dulcolax) 10 mg [place] DAILYPRN PRN PRN Reason: Constipation Dextrose/Water (Dextrose 50%) 25 gm SLOW IVP PRN PRN PRN Reason: Hypoglycemia Docusate Sodium (Colace) 100 mg PO BID [facility] Last Admin: 06/07/17 08:02 Dose: 100 mg Duloxetine HCl (Cymbalta) 60 mg PO DAILY [facility] Last Admin: 06/07/17 08:01 Dose: 60 mg Enoxaparin Sodium (Lovenox) 30 mg SC 0900 [facility] Last Admin: 06/07/17 07:59 Dose: 30 mg Famotidine (Pepcid) 20 mg PO DAILY [facility] Last Admin: 06/07/17 08:02 Dose: 20 mg Gabapentin (Neurontin) 100 mg PO TID [facility] Last Admin: 06/07/17 08:00 Dose: 100 mg Glucagon (Glucagon) 1 mg IM PRN PRN PRN Reason: Hypoglycemia Guaifenesin (Robitussin Sf) 200 mg PO Q4H PRN PRN Reason: Cough Hydralazine HCl (Apresoline) 10 mg SLOW IVP Q4H PRN PRN Reason: Systolic BP > 180 Dextrose/Water (D5w) 1,000 mls @ 0 mls/hr IV .Q0M PRN; As Directed PRN Reason: Hypoglycemia Piperacillin Sod/Tazobactam (Sod 3.375 gm/ Sodium Chloride) 100 mls @ 200 mls/ hr IVPB Q6HR [facility] Stop: 06/10/17 06:01 Last Admin: 06/07/17 11:45 Dose: 100 mls Insulin Detemir 40 units/ (Miscellaneous Medication) 0.4 mls @ 0 mls/hr SC BID [facility] Last Admin: 06/07/17 09:08 Dose: 0.4 mls Sodium Chloride (Normal Saline 0.9%) 1,000 mls @ 125 mls/hr IV .Q8H [facility] Last Admin: 06/07/17 07:57 Dose: 1,000 mls Promethazine HCl 25 mg/Miscellaneous Medication 1 each/ Sodium Chloride 51 mls @ 204 mls/hr IVPB Q6H PRN PRN Reason: Nausea Last Admin: 06/07/17 07:57 Dose: 51 mls Insulin Human Lispro (Humalog) 0 units SC .AGGRESSIVE SLIDING PRN PRN Reason: Aggressive Correctional Scale Last Admin: 06/06/17 17:30 Dose: 3 unit Insulin Human Lispro (Humalog) 0 units SC .BEDTIME SLIDING SC PRN PRN Reason: Bedtime Correctional Scale Loperamide HCl (Imodium) 2 mg PO PRN PRN PRN Reason: Diarrhea/Loose Stools Loratadine (Claritin) 10 mg PO DAILYPRN PRN PRN Reason: Sinus Symptoms Magnesium Citrate (Citrate Of Magnesia 300 Ml Bot) 300 ml PO NOW [facility] Stop: 06/07/17 14:00 Last Admin: 06/07/17 12:48 Dose: Not Given Magnesium Hydroxide (Milk Of Magnesium) 30 ml PO DAILYPRN PRN PRN Reason: Constipation Mineral Oil/White Petrolatum (Eucerin Cream) 0 gm TOP BIDPRN PRN PRN Reason: Dry Skin Morphine Sulfate (Morphine Sulfate) 1 mg SLOW IVP Q3H PRN PRN Reason: Pain Last Admin: 06/05/17 12:14 Dose: 1 mg Morphine Sulfate (Morphine Sulfate) 4 mg SLOW IVP Q4H PRN PRN Reason: Pain Last Admin: 06/07/17 12:44 Dose: 4 mg Ondansetron HCl (Zofran) 4 mg IVP Q6H PRN PRN Reason: Nausea/Vomiting Last Admin: 06/07/17 11:45 Dose: 4 mg Ondansetron HCl (Zofran Odt) 4 mg PO Q6H PRN PRN Reason: Nausea/Vomiting Oxycodone HCl (Oxycodone Ir) 10 mg PO QID [facility] Last Admin: 06/07/17 12:48 Dose: Not Given Phenol (Chloraseptic [place] 180 Ml Bot) 0 ml PO PRN PRN PRN Reason: Sore Throat Promethazine HCl (Phenergan) 25 mg IM/IV Q6H PRN PRN Reason: Nausea/Vomiting Last Admin: 06/07/17 01:18 Dose: 25 mg Senna (Senokot) 2 tab PO HSPRN PRN PRN Reason: Constipation Sodium Chloride ([place] Nasal [place] 0.65%) 0 ml EA NARE QIDPRN PRN PRN Reason: Nasal Congestion Sodium Chloride (Flush - Normal Saline) 10 ml IVF Q12HR [facility] Last Admin: 06/07/17 08:08 Dose: Not Given Sodium Chloride (Flush - Normal Saline) 10 ml IVF PRN PRN PRN Reason: Saline Flush Last Admin: 06/07/17 05:17 Dose: 10 ml Temazepam (Restoril) 15 mg PO HSPRN PRN PRN Reason: Insomnia
--- NOTE | 2017-06-07 18:17 | PRG ---
DATE OF SERVICE: 06/07/2017 SUBJECTIVE: Still not feeling well, particularly because of nausea. No vomiting, no diarrhea, no g enitourinary symptoms. OBJECTIVE: VITAL SIGNS: T-max 99.7, now 98. LUNGS: Clear. HEART: S1 and S2 with regular rate. ABDOMEN: Soft and not tender. EXTREMITIES: Left foot with marked decrease in swelling and erythema. There is a well granulating wound at the base of the mid foot region. LABORATORY DATA: White cell count 12,000, hemoglobin 10 and platelets 310 and creatinine of 1.92. ASSESSMENT: Diabetes type 2 with neuropathy and Charcot arthropathy, chronic wound plantar aspect, neutrophilia with imaging consistent with Charcot possible superimposed midfoot deep midfoot infecti on, but more likely to represent cellulitis without is not ruled out. DISCUSSION: At this point, I would favor treating conservatively ovoid surgical intervention. MRI results amputation, particularly in view of the fact that she does not have an abscess in the mid f oot region. In that case, she would need to continue antimicrobial therapy which would.
[2017-06-08] MEDS: Piperacillin/Tazobactam 3.375 GM in Sodium Chloride 0.9% 100 ML IVPB SCH ×4 (00:37→18:29)
[2017-06-08] MEDS: Gabapentin 100 MG CAP PO SCH ×4 (01:22→21:27)
[2017-06-08] MEDS: Ondansetron HCl/PF 4 MG/2 ML Vial IVP PRN ×2 (01:28→11:42)
[2017-06-08] MEDS: Sodium Chloride 0.9% 1,000 ML IV SCH ×3 (04:09→14:39)
[2017-06-08 05:02] LABS: #Eosinphils 0.4 thou/uL (0.0-0.7); #Lymphocytes 1.7 thou/uL (1.20-3.40); #Monocytes 0.5 thou/uL (0.11-0.59); #Neutrophils 6.2 thou/uL (1.40-6.50); %Basophils 0.3 % (0.0-1.0); %Eosinophils 4.5 % (0.0-10.0); %Lymphocytes 19.1 % (21.0-51.0); %Monocytes 5.2 % (0.0-10.0); Hematocrit 30.5 % (36.0-47.0); Mean Platelet Volume 7.6 fL (7.4-10.4); Red Blood Cell (RBC) Count 3.22 mill/uL (4.20-5.40); White Blood Cell (WBC) Count 8.7 thou/uL (4.8-10.8)
[2017-06-08 05:43] LABS: BUN (Urea Nitrogen) 19 mg/dL (7.0-18.7); BUN/Creatinine Ratio 14.39; Calc. Creatinine Clearance 118 mL/min (70-130); Calcium 8.8 mg/dL (7.8-10.44); Chloride 108 mmol/L (98-107); Estimated GFR-MDRD 43; Phosphorus 3.4 mg/dL (2.3-4.7)
[2017-06-08 05:55] LABS: Anion Gap 14 mmol/L (10-20); Carbon Dioxide 21 mmol/L (22-29)
[2017-06-08] MEDS: ADMIXTURE FEE IVPB PRN ×3 (08:10→22:21)
[2017-06-08] MEDS: SODIUM CHLORIDE IVPB PRN ×3 (08:10→22:21)
[2017-06-08] MEDS: PROMETHAZINE HCL IVPB PRN ×3 (08:10→22:21)
--- NOTE | 2017-06-08 10:19 | PDOC.PN ---
- Subjective Encounter Start Date: 06/08/17 Encounter Start Time: 07:30 pt still has no BM, feels nausea, no fever - Objective MAR Reviewed: Yes Vital Signs & Weight: Vital Signs (12 hours) Temp Pulse Resp BP BP Pulse Ox 06/08/17 07:22 97.8 F 87 12 145/88 H 97 06/08/17 04:41 97.6 F 86 14 152/96 H 96 06/08/17 02:02 138/88 06/08/17 01:04 97.6 F 92 16 154/103 H 97 Weight Admit Weight 309 lb 6.4 oz Weight 309 lb 6.4 oz I&O: 06/07/17 06/08/17 06/09/17 06:59 06:59 06:59 Intake Total 2879 4102 Balance 2879 4102 Result Diagrams: 06/08/17 03:50 06/08/17 03:50 Additional Labs: Accuchecks 06/08/17 06/07/17 06/07/17 04:15 20:19 15:55 POC Glucose 79 88 81 06/07/17 11:13 POC Glucose 91 Phys Exam - Physical Examination Constitutional: NAD HEENT: PERRLA, moist MMs, sclera anicteric Neck: no JVD, supple Respiratory: no wheezing, no rales, no rhonchi Cardiovascular: RRR, no significant murmur, no rub Gastrointestinal: soft, non-tender, no distention, positive bowel sounds Musculoskeletal: no edema, pulses present left foot with dressing Neurological: non-focal, normal sensation Psychiatric: normal affect, A&O x 3 Skin: no rash, normal turgor Dx/Plan (1) Acute kidney failure Status: Acute (2) Cellulitis and abscess of lower extremity Code(s): L03.119 - CELLULITIS OF UNSPECIFIED PART OF LIMB; L02.419 - CUTANEOUS ABSCESS OF LIMB, UNSPECIFIED Status: Acute (3) Hyperglycemia due to type 2 diabetes mellitus Code(s): E11.65 - TYPE 2 DIABETES MELLITUS WITH HYPERGLYCEMIA Status: Acute (4) Hyponatremia Code(s): E87.1 - HYPO-OSMOLALITY AND HYPONATREMIA Status: Acute (5) Sepsis with acute organ dysfunction Code(s): A41.9 - SEPSIS, UNSPECIFIED ORGANISM; R65.20 - SEVERE SEPSIS WITHOUT SEPTIC SHOCK Status: Acute (6) Anxiety and depression Code(s): F41.8 - OTHER SPECIFIED ANXIETY DISORDERS Status: Chronic (7) Diabetes mellitus type II, uncontrolled Code(s): E11.65 - TYPE 2 DIABETES MELLITUS WITH HYPERGLYCEMIA Status: Chronic Qualifiers: Diabetes mellitus complication detail: with polyneuropathy (8) HTN (hypertension) Code(s): I10 - ESSENTIAL (PRIMARY) HYPERTENSION Status: Chronic Qualifiers: Hypertension type: essential hypertension Qualified Code(s): I10 - Essential (primary) hypertension Comment: (9) Hyperlipidemia Code(s): E78.5 - HYPERLIPIDEMIA, UNSPECIFIED Status: Chronic Comment: (10) Morbid obesity with BMI of 45.0-49.9, adult Code(s): E66.01 - MORBID (SEVERE) OBESITY DUE TO EXCESS CALORIES; Z68.42 - BODY MASS INDEX (BMI) 45.0-49.9, ADULT Status: Chronic (11) Constipation Code(s): K59.00 - CONSTIPATION, UNSPECIFIED Status: Acute - Plan cont current plan of care, 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 * reduce IVF Review of Systems - Review of Systems Constitutional: negative: Fever, Chills, Sweats, Weakness, Malaise, Other ENT: negative: Ear Pain, Ear Discharge, Nose Pain, Nose Discharge, Nose Congestion, Mouth Pain, Mouth Swelling, Throat Pain, Throat Swelling, Other Respiratory: negative: Cough, Dry, Shortness of Breath, Hemoptysis, SOB with Excertion, Pleuritic Pain, Sputum, Wheezing Cardiovascular: negative: Chest Pain, Palpitations, Orthopnea, Paroxysmal Noc. Dyspnea, Edema, Light Headedness, Other Gastrointestinal: Nausea, Constipation. negative: Vomiting, Abdominal Pain, Diarrhea, Melena, Hematochezia, Other Genitourinary: negative: Dysuria, Frequency, Incontinence, Hematuria, Retention , Other Musculoskeletal: negative: Neck Pain, Shoulder Pain, Arm Pain, Back Pain, Hand Pain, Leg Pain, Foot Pain, Other Skin: negative: Rash, Lesions, Bari, Bruising, Other - Medications/Allergies Allergies/Adverse Reactions: Allergies Allergy/AdvReac Type Severity Reaction Status Date / Time codeine AdvReac Verified 06/05/17 03:31 Medications: Current Medications Acetaminophen (Tylenol) 650 mg PO Q4H PRN PRN Reason: Headache/Fever or Pain Al Hydroxide/Mg Hydroxide (Maalox) 15 ml PO Q4H PRN PRN Reason: Heartburn or Indigestion Amlodipine Besylate (Norvasc) 5 mg PO DAILY [facility] Last Admin: 06/07/17 08:00 Dose: 5 mg Artificial Tears (Tears Naturale) 0 drop EA EYE PRN PRN PRN Reason: Dry Eyes Bisacodyl (Dulcolax) 10 mg [place] DAILYPRN PRN PRN Reason: Constipation Dextrose/Water (Dextrose 50%) 25 gm SLOW IVP PRN PRN PRN Reason: Hypoglycemia Docusate Sodium (Colace) 100 mg PO BID [facility] Last Admin: 06/07/17 21:21 Dose: Not Given Duloxetine HCl (Cymbalta) 60 mg PO DAILY [facility] Last Admin: 06/07/17 08:01 Dose: 60 mg Enoxaparin Sodium (Lovenox) 30 mg SC 09 [facility] Last Admin: 06/07/17 07:59 Dose: 30 mg Famotidine (Pepcid) 20 mg PO DAILY [facility] Last Admin: 06/07/17 08:02 Dose: 20 mg Gabapentin (Neurontin) 100 mg PO TID [facility] Last Admin: 06/08/17 01:22 Dose: 100 mg Glucagon (Glucagon) 1 mg IM PRN PRN PRN Reason: Hypoglycemia Guaifenesin (Robitussin Sf) 200 mg PO Q4H PRN PRN Reason: Cough Hydralazine HCl (Apresoline) 10 mg SLOW IVP Q4H PRN PRN Reason: Systolic BP > 180 Dextrose/Water (D5w) 1,000 mls @ 0 mls/hr IV .Q0M PRN; As Directed PRN Reason: Hypoglycemia Piperacillin Sod/Tazobactam (Sod 3.375 gm/ Sodium Chloride) 100 mls @ 200 mls/ hr IVPB Q6HR [facility] Stop: 06/10/17 06:01 Last Admin: 06/08/17 05:55 Dose: 100 mls Insulin Detemir 40 units/ (Miscellaneous Medication) 0.4 mls @ 0 mls/hr SC BID [facility] Last Admin: 06/07/17 21:21 Dose: Not Given Sodium Chloride (Normal Saline 0.9%) 1,000 mls @ 125 mls/hr IV .Q8H [facility] Last Admin: 06/08/17 04:09 Dose: 1,000 mls Promethazine HCl 25 mg/Miscellaneous Medication 1 each/ Sodium Chloride 51 mls @ 204 mls/hr IVPB Q6H PRN PRN Reason: Nausea Last Admin: 06/08/17 08:10 Dose: 51 mls Insulin Human Lispro (Humalog) 0 units SC .AGGRESSIVE SLIDING PRN PRN Reason: Aggressive Correctional Scale Last Admin: 06/06/17 17:30 Dose: 3 unit Insulin Human Lispro (Humalog) 0 units SC .BEDTIME SLIDING SC PRN PRN Reason: Bedtime Correctional Scale Loperamide HCl (Imodium) 2 mg PO PRN PRN PRN Reason: Diarrhea/Loose Stools Loratadine (Claritin) 10 mg PO DAILYPRN PRN PRN Reason: Sinus Symptoms Magnesium Hydroxide (Milk Of Magnesium) 30 ml PO DAILYPRN PRN PRN Reason: Constipation Mineral Oil/White Petrolatum (Eucerin Cream) 0 gm TOP BIDPRN PRN PRN Reason: Dry Skin Morphine Sulfate (Morphine Sulfate) 1 mg SLOW IVP Q3H PRN PRN Reason: Pain Last Admin: 06/05/17 12:14 Dose: 1 mg Morphine Sulfate (Morphine Sulfate) 4 mg SLOW IVP Q4H PRN PRN Reason: Pain Last Admin: 06/08/17 08:11 Dose: 4 mg Ondansetron HCl (Zofran) 4 mg IVP Q6H PRN PRN Reason: Nausea/Vomiting Last Admin: 06/08/17 01:28 Dose: 4 mg Ondansetron HCl (Zofran Odt) 4 mg PO Q6H PRN PRN Reason: Nausea/Vomiting Oxycodone HCl (Oxycodone Ir) 10 mg PO QID [facility] Last Admin: 06/07/17 21:21 Dose: Not Given Phenol (Chloraseptic [place] 180 Ml Bot) 0 ml PO PRN PRN PRN Reason: Sore Throat Promethazine HCl (Phenergan) 25 mg IM/IV Q6H PRN PRN Reason: Nausea/Vomiting Last Admin: 06/07/17 01:18 Dose: 25 mg Senna (Senokot) 2 tab PO HSPRN PRN PRN Reason: Constipation Sodium Chloride ([place] Nasal [place] 0.65%) 0 ml EA NARE QIDPRN PRN PRN Reason: Nasal Congestion Sodium Chloride (Flush - Normal Saline) 10 ml IVF Q12HR [facility] Last Admin: 06/07/17 21:21 Dose: Not Given Sodium Chloride (Flush - Normal Saline) 10 ml IVF PRN PRN PRN Reason: Saline Flush Last Admin: 06/07/17 05:17 Dose: 10 ml Temazepam (Restoril) 15 mg PO HSPRN PRN PRN Reason: Insomnia
[2017-06-08] MEDS ORDERED: Fleet Enema 133 ML BOT PR SCH (10:30)
[2017-06-08] MEDS: Docusate 100 MG CAP PO SCH ×2 (11:24→21:27)
[2017-06-08] MEDS: oxyCODONE 5 MG TAB PO SCH ×4 (11:24→21:28)
[2017-06-08] MEDS: Famotidine 20 MG TAB PO SCH (11:24)
[2017-06-08] MEDS: Insulin Detemir 100 UNITS/ML 40 UNITS in Pre-Filled Syringe 1 EACH SC SCH ×2 (11:25→21:28)
[2017-06-08] MEDS: Enoxaparin Sodium 30 MG/0.3 ML SYRINGE SC SCH (11:26)
[2017-06-09] MEDS: Piperacillin/Tazobactam 3.375 GM in Sodium Chloride 0.9% 100 ML IVPB SCH ×4 (00:30→19:47)
[2017-06-09] MEDS: Sodium Chloride 0.9% 1,000 ML IV SCH ×3 (00:32→09:30)
[2017-06-09] MEDS: Ondansetron HCl/PF 4 MG/2 ML Vial IVP PRN ×3 (02:39→15:43)
[2017-06-09 05:03] LABS: #Eosinphils 0.4 thou/uL (0.0-0.7); #Lymphocytes 1.4 thou/uL (1.20-3.40); #Monocytes 0.5 thou/uL (0.11-0.59); #Neutrophils 5.5 thou/uL (1.40-6.50); %Basophils 0.3 % (0.0-1.0); %Eosinophils 5.5 % (0.0-10.0); %Lymphocytes 17.4 % (21.0-51.0); %Monocytes 6.1 % (0.0-10.0); Hematocrit 30.8 % (36.0-47.0); Mean Platelet Volume 7.3 fL (7.4-10.4); Red Blood Cell (RBC) Count 3.28 mill/uL (4.20-5.40); White Blood Cell (WBC) Count 7.8 thou/uL (4.8-10.8)
[2017-06-09 05:22] LABS: Anion Gap 16 mmol/L (10-20); BUN (Urea Nitrogen) 14 mg/dL (7.0-18.7); Calc. Creatinine Clearance 142 mL/min (70-130); Calcium 8.7 mg/dL (7.8-10.44); Carbon Dioxide 21 mmol/L (22-29); Chloride 106 mmol/L (98-107); Estimated GFR-MDRD 53
[2017-06-09] MEDS: SODIUM CHLORIDE IVPB PRN ×2 (05:50→21:34)
[2017-06-09] MEDS: ADMIXTURE FEE IVPB PRN ×2 (05:50→21:34)
[2017-06-09] MEDS: PROMETHAZINE HCL IVPB PRN ×2 (05:50→21:34)
[2017-06-09] MEDS: Gabapentin 100 MG CAP PO SCH ×3 (08:28→20:58)
[2017-06-09] MEDS: Enoxaparin Sodium 30 MG/0.3 ML SYRINGE SC SCH (08:29)
[2017-06-09] MEDS: Polyethylene Glycol 3350 17 GM Packet PO SCH (08:29)
[2017-06-09] MEDS: Docusate 100 MG CAP PO SCH ×2 (08:29→20:58)
[2017-06-09] MEDS: Famotidine 20 MG TAB PO SCH (08:29)
[2017-06-09] MEDS: Insulin Detemir 100 UNITS/ML 40 UNITS in Pre-Filled Syringe 1 EACH SC SCH ×2 (08:32→20:58)
[2017-06-09] MEDS: oxyCODONE 5 MG TAB PO SCH ×4 (09:00→20:59)
--- NOTE | 2017-06-09 11:11 | PDOC.PN ---
- Subjective Encounter Start Date: 06/09/17 Encounter Start Time: 10:00 -: old records requested/rev Patient seen and examined. No overnight events, c/o nausea - Objective MAR Reviewed: Yes Vital Signs & Weight: Vital Signs (12 hours) Temp Pulse Resp BP Pulse Ox 06/09/17 07:47 97.8 F 97 14 157/102 H 95 06/09/17 02:41 97.7 F 94 20 168/103 H 92 L Weight Admit Weight 309 lb 6.4 oz Weight 309 lb 6.4 oz I&O: 06/08/17 06/09/17 06/10/17 06:59 06:59 06:59 Intake Total 4102 3093 Balance 4102 3093 Result Diagrams: 06/09/17 03:59 06/09/17 03:59 Additional Labs: Accuchecks 06/09/17 06/08/17 06/08/17 05:56 20:01 16:39 POC Glucose 135 H 117 H 117 H 06/08/17 11:12 POC Glucose 75 Phys Exam - Physical Examination Constitutional: NAD HEENT: PERRLA, moist MMs, sclera anicteric Neck: no JVD, supple Respiratory: no wheezing, no rales, no rhonchi Cardiovascular: RRR, no significant murmur, no rub Gastrointestinal: soft, non-tender, no distention, positive bowel sounds left foot with dressing Neurological: non-focal, normal sensation Lymphatic: no nodes Psychiatric: normal affect, A&O x 3 Skin: no rash, normal turgor Dx/Plan (1) Acute kidney failure Status: Acute (2) Cellulitis and abscess of lower extremity Code(s): L03.119 - CELLULITIS OF UNSPECIFIED PART OF LIMB; L02.419 - CUTANEOUS ABSCESS OF LIMB, UNSPECIFIED Status: Acute (3) Hyperglycemia due to type 2 diabetes mellitus Code(s): E11.65 - TYPE 2 DIABETES MELLITUS WITH HYPERGLYCEMIA Status: Acute (4) Hyponatremia Code(s): E87.1 - HYPO-OSMOLALITY AND HYPONATREMIA Status: Acute (5) Sepsis with acute organ dysfunction Code(s): A41.9 - SEPSIS, UNSPECIFIED ORGANISM; R65.20 - SEVERE SEPSIS WITHOUT SEPTIC SHOCK Status: Acute (6) Anxiety and depression Code(s): F41.8 - OTHER SPECIFIED ANXIETY DISORDERS Status: Chronic (7) Diabetes mellitus type II, uncontrolled Code(s): E11.65 - TYPE 2 DIABETES MELLITUS WITH HYPERGLYCEMIA Status: Chronic Qualifiers: Diabetes mellitus complication detail: with polyneuropathy (8) HTN (hypertension) Code(s): I10 - ESSENTIAL (PRIMARY) HYPERTENSION Status: Chronic Qualifiers: Hypertension type: essential hypertension Qualified Code(s): I10 - Essential (primary) hypertension Comment: (9) Hyperlipidemia Code(s): E78.5 - HYPERLIPIDEMIA, UNSPECIFIED Status: Chronic Comment: (10) Morbid obesity with BMI of 45.0-49.9, adult Code(s): E66.01 - MORBID (SEVERE) OBESITY DUE TO EXCESS CALORIES; Z68.42 - BODY MASS INDEX (BMI) 45.0-49.9, ADULT Status: Chronic (11) Constipation Code(s): K59.00 - CONSTIPATION, UNSPECIFIED Status: Acute - Plan cont current plan of care, continue antibiotics * medication reviewed as below * symptomatic treatment. * will follow culture today * DC IVF Review of Systems - Review of Systems Constitutional: negative: Fever, Chills, Sweats, Weakness, Malaise, Other Eyes: negative: Pain, Vision Change, Conjunctivae Inflammation, Eyelid Inflammation, Redness, Other ENT: negative: Ear Pain, Ear Discharge, Nose Pain, Nose Discharge, Nose Congestion, Mouth Pain, Mouth Swelling, Throat Pain, Throat Swelling, Other Respiratory: negative: Cough, Dry, Shortness of Breath, Hemoptysis, SOB with Excertion, Pleuritic Pain, Sputum, Wheezing Cardiovascular: negative: Chest Pain, Palpitations, Orthopnea, Paroxysmal Noc. Dyspnea, Edema, Light Headedness, Other Gastrointestinal: Nausea, Vomiting. negative: Abdominal Pain, Diarrhea, Constipation, Melena, Hematochezia, Other Genitourinary: negative: Dysuria, Frequency, Incontinence, Hematuria, Retention , Other Musculoskeletal: negative: Neck Pain, Shoulder Pain, Arm Pain, Back Pain, Hand Pain, Leg Pain, Foot Pain, Other - Medications/Allergies Allergies/Adverse Reactions: Allergies Allergy/AdvReac Type Severity Reaction Status Date / Time codeine AdvReac Verified 06/05/17 03:31 Medications: Current Medications Acetaminophen (Tylenol) 650 mg PO Q4H PRN PRN Reason: Headache/Fever or Pain Al Hydroxide/Mg Hydroxide (Maalox) 15 ml PO Q4H PRN PRN Reason: Heartburn or Indigestion Amlodipine Besylate (Norvasc) 5 mg PO DAILY [facility] Last Admin: 06/09/17 08:28 Dose: 5 mg Artificial Tears (Tears Naturale) 0 drop EA EYE PRN PRN PRN Reason: Dry Eyes Bisacodyl (Dulcolax) 10 mg [place] DAILYPRN PRN PRN Reason: Constipation Dextrose/Water (Dextrose 50%) 25 gm SLOW IVP PRN PRN PRN Reason: Hypoglycemia Docusate Sodium (Colace) 100 mg PO BID [facility] Last Admin: 06/09/17 08:29 Dose: 100 mg Duloxetine HCl (Cymbalta) 60 mg PO DAILY [facility] Last Admin: 06/09/17 08:28 Dose: 60 mg Enoxaparin Sodium (Lovenox) 30 mg SC 09 [facility] Last Admin: 06/09/17 08:29 Dose: 30 mg Famotidine (Pepcid) 20 mg PO DAILY [facility] Last Admin: 06/09/17 08:29 Dose: 20 mg Gabapentin (Neurontin) 100 mg PO TID [facility] Last Admin: 06/09/17 08:28 Dose: 100 mg Glucagon (Glucagon) 1 mg IM PRN PRN PRN Reason: Hypoglycemia Guaifenesin (Robitussin Sf) 200 mg PO Q4H PRN PRN Reason: Cough Hydralazine HCl (Apresoline) 10 mg SLOW IVP Q4H PRN PRN Reason: Systolic BP > 180 Dextrose/Water (D5w) 1,000 mls @ 0 mls/hr IV .Q0M PRN; As Directed PRN Reason: Hypoglycemia Piperacillin Sod/Tazobactam (Sod 3.375 gm/ Sodium Chloride) 100 mls @ 200 mls/ hr IVPB Q6HR [facility] Stop: 06/10/17 06:01 Last Admin: 06/09/17 06:23 Dose: 100 mls Insulin Detemir 40 units/ (Miscellaneous Medication) 0.4 mls @ 0 mls/hr SC BID [facility] Last Admin: 06/09/17 08:32 Dose: Not Given Promethazine HCl 25 mg/Miscellaneous Medication 1 each/ Sodium Chloride 51 mls @ 204 mls/hr IVPB Q6H PRN PRN Reason: Nausea Last Admin: 06/09/17 05:50 Dose: 51 mls Sodium Chloride (Normal Saline 0.9%) 1,000 mls @ 70 mls/hr IV .[id number] [facility] Insulin Human Lispro (Humalog) 0 units SC .AGGRESSIVE SLIDING PRN PRN Reason: Aggressive Correctional Scale Last Admin: 06/06/17 17:30 Dose: 3 unit Insulin Human Lispro (Humalog) 0 units SC .BEDTIME SLIDING SC PRN PRN Reason: Bedtime Correctional Scale Loperamide HCl (Imodium) 2 mg PO PRN PRN PRN Reason: Diarrhea/Loose Stools Loratadine (Claritin) 10 mg PO DAILYPRN PRN PRN Reason: Sinus Symptoms Magnesium Hydroxide (Milk Of Magnesium) 30 ml PO DAILYPRN PRN PRN Reason: Constipation Mineral Oil/White Petrolatum (Eucerin Cream) 0 gm TOP BIDPRN PRN PRN Reason: Dry Skin Morphine Sulfate (Morphine Sulfate) 1 mg SLOW IVP Q3H PRN PRN Reason: Pain Last Admin: 06/05/17 12:14 Dose: 1 mg Morphine Sulfate (Morphine Sulfate) 4 mg SLOW IVP Q4H PRN PRN Reason: Pain Last Admin: 06/08/17 21:26 Dose: 4 mg Ondansetron HCl (Zofran) 4 mg IVP Q6H PRN PRN Reason: Nausea/Vomiting Last Admin: 06/09/17 08:44 Dose: 4 mg Ondansetron HCl (Zofran Odt) 4 mg PO Q6H PRN PRN Reason: Nausea/Vomiting Oxycodone HCl (Oxycodone Ir) 10 mg PO QID [facility] Last Admin: 06/08/17 21:28 Dose: Not Given Pantoprazole Sodium (Protonix) 40 mg PO DAILY [facility] Phenol (Chloraseptic [place] 180 Ml Bot) 0 ml PO PRN PRN PRN Reason: Sore Throat Polyethylene Glycol (Miralax) 17 gm PO DAILY [facility] Last Admin: 06/09/17 08:29 Dose: 17 gm Promethazine HCl (Phenergan) 25 mg IM/IV Q6H PRN PRN Reason: Nausea/Vomiting Last Admin: 06/07/17 01:18 Dose: 25 mg Senna (Senokot) 2 tab PO HSPRN PRN PRN Reason: Constipation Sodium Chloride ([place] Nasal [place] 0.65%) 0 ml EA NARE QIDPRN PRN PRN Reason: Nasal Congestion Sodium Chloride (Flush - Normal Saline) 10 ml IVF Q12HR [facility] Last Admin: 06/08/17 21:28 Dose: Not Given Sodium Chloride (Flush - Normal Saline) 10 ml IVF PRN PRN PRN Reason: Saline Flush Last Admin: 06/07/17 05:17 Dose: 10 ml Temazepam (Restoril) 15 mg PO HSPRN PRN PRN Reason: Insomnia
[2017-06-09] MEDS: Promethazine HCl 25 MG/ML VIAL IM/IV PRN (11:29)
[2017-06-10] MEDS: Sodium Chloride 0.9% 1,000 ML IV SCH (00:10)
[2017-06-10] MEDS: Piperacillin/Tazobactam 3.375 GM in Sodium Chloride 0.9% 100 ML IVPB SCH ×4 (00:52→17:03)
[2017-06-10] MEDS: SODIUM CHLORIDE IVPB PRN ×3 (05:05→15:54)
[2017-06-10] MEDS: ADMIXTURE FEE IVPB PRN ×3 (05:05→15:54)
[2017-06-10] MEDS: PROMETHAZINE HCL IVPB PRN ×3 (05:05→15:54)
[2017-06-10] MEDS: Morphine Sulfate 2 MG/ML SYRINGE SLOW IVP PRN (05:38)
[2017-06-10] MEDS: Lisinopril/Hydrochlorothiazide 10 mg/12.5 mg Tablet PO SCH (09:18)
[2017-06-10] MEDS: Atenolol 25 MG TAB PO SCH (09:20)
[2017-06-10] MEDS: Docusate 100 MG CAP PO SCH ×2 (09:21→21:16)
[2017-06-10] MEDS: Gabapentin 100 MG CAP PO SCH ×3 (09:21→21:08)
[2017-06-10] MEDS: Famotidine 20 MG TAB PO SCH (09:21)
[2017-06-10] MEDS: Insulin Detemir 100 UNITS/ML 40 UNITS in Pre-Filled Syringe 1 EACH SC SCH ×2 (09:22→21:09)
[2017-06-10] MEDS: Enoxaparin Sodium 30 MG/0.3 ML SYRINGE SC SCH (09:22)
[2017-06-10] MEDS: Polyethylene Glycol 3350 17 GM Packet PO SCH (09:23)
[2017-06-10] MEDS: oxyCODONE 5 MG TAB PO SCH ×4 (09:23→21:08)
[2017-06-10] MEDS: Ondansetron HCl/PF 4 MG/2 ML Vial IVP PRN ×2 (09:30→21:19)
--- NOTE | 2017-06-10 12:27 | PDOC.PN ---
- Subjective Encounter Start Date: 06/10/17 Encounter Start Time: 10:30 Patient seen and examined. No new complaints. No overnight events - Objective MAR Reviewed: Yes Vital Signs & Weight: Vital Signs (12 hours) Temp Pulse Resp BP BP BP Pulse Ox 06/10/17 09:21 93 06/10/17 09:20 95 169/103 H 06/10/17 09:18 95 169/103 H 06/10/17 08:00 97.7 F 93 20 169/103 H 97 06/10/17 04:00 97.6 F 93 16 169/102 H 94 L Weight Admit Weight 309 lb 6.4 oz Weight 309 lb 6.4 oz I&O: 06/09/17 06/10/17 06/11/17 06:59 06:59 06:59 Intake Total 3093 970 Balance 3093 970 Result Diagrams: 06/09/17 03:59 06/09/17 03:59 Additional Labs: Accuchecks 06/10/17 06/09/17 06/09/17 05:53 20:12 15:45 POC Glucose 172 H 184 H 174 H Phys Exam - Physical Examination Constitutional: NAD HEENT: PERRLA, moist MMs, sclera anicteric Neck: no JVD, supple Respiratory: no wheezing, no rales, no rhonchi Cardiovascular: RRR, no significant murmur, no rub Gastrointestinal: soft, non-tender, no distention, positive bowel sounds Musculoskeletal: no edema, pulses present left foot with dressing Neurological: non-focal, normal sensation Psychiatric: normal affect, A&O x 3 Skin: no rash, normal turgor Dx/Plan (1) Acute kidney failure Status: Resolved (2) Cellulitis and abscess of lower extremity Code(s): L03.119 - CELLULITIS OF UNSPECIFIED PART OF LIMB; L02.419 - CUTANEOUS ABSCESS OF LIMB, UNSPECIFIED Status: Acute (3) Hyperglycemia due to type 2 diabetes mellitus Code(s): E11.65 - TYPE 2 DIABETES MELLITUS WITH HYPERGLYCEMIA Status: Acute (4) Hyponatremia Code(s): E87.1 - HYPO-OSMOLALITY AND HYPONATREMIA Status: Resolved (5) Sepsis with acute organ dysfunction Code(s): A41.9 - SEPSIS, UNSPECIFIED ORGANISM; R65.20 - SEVERE SEPSIS WITHOUT SEPTIC SHOCK Status: Acute (6) Anxiety and depression Code(s): F41.8 - OTHER SPECIFIED ANXIETY DISORDERS Status: Chronic (7) Diabetes mellitus type II, uncontrolled Code(s): E11.65 - TYPE 2 DIABETES MELLITUS WITH HYPERGLYCEMIA Status: Chronic Qualifiers: Diabetes mellitus complication detail: with polyneuropathy (8) HTN (hypertension) Code(s): I10 - ESSENTIAL (PRIMARY) HYPERTENSION Status: Chronic Qualifiers: Hypertension type: essential hypertension Qualified Code(s): I10 - Essential (primary) hypertension Comment: (9) Hyperlipidemia Code(s): E78.5 - HYPERLIPIDEMIA, UNSPECIFIED Status: Chronic Comment: (10) Morbid obesity with BMI of 45.0-49.9, adult Code(s): E66.01 - MORBID (SEVERE) OBESITY DUE TO EXCESS CALORIES; Z68.42 - BODY MASS INDEX (BMI) 45.0-49.9, ADULT Status: Chronic (11) Constipation Code(s): K59.00 - CONSTIPATION, UNSPECIFIED Status: Resolved - Plan cont current plan of care, continue antibiotics * continue vancomycin and zosyn * follow culture to decide oral antibiotics on discharge * wound care * medication reviewed as below * symptomatic treatment.. Review of Systems - Review of Systems ENT: negative: Ear Pain, Ear Discharge, Nose Pain, Nose Discharge, Nose Congestion, Mouth Pain, Mouth Swelling, Throat Pain, Throat Swelling, Other Respiratory: negative: Cough, Dry, Shortness of Breath, Hemoptysis, SOB with Excertion, Pleuritic Pain, Sputum, Wheezing Cardiovascular: negative: Chest Pain, Palpitations, Orthopnea, Paroxysmal Noc. Dyspnea, Edema, Light Headedness, Other Gastrointestinal: negative: Nausea, Vomiting, Abdominal Pain, Diarrhea, Constipation, Melena, Hematochezia, Other Genitourinary: negative: Dysuria, Frequency, Incontinence, Hematuria, Retention , Other Musculoskeletal: negative: Neck Pain, Shoulder Pain, Arm Pain, Back Pain, Hand Pain, Leg Pain, Foot Pain, Other - Medications/Allergies Allergies/Adverse Reactions: Allergies Allergy/AdvReac Type Severity Reaction Status Date / Time ricky AdvReac Verified 06/05/17 03:31 Medications: Current Medications Acetaminophen (Tylenol) 650 mg PO Q4H PRN PRN Reason: Headache/Fever or Pain Al Hydroxide/Mg Hydroxide (Maalox) 15 ml PO Q4H PRN PRN Reason: Heartburn or Indigestion Amlodipine Besylate (Norvasc) 5 mg PO DAILY [facility] Last Admin: 06/10/17 09:21 Dose: 5 mg Artificial Tears (Tears Naturale) 0 drop EA EYE PRN PRN PRN Reason: Dry Eyes Atenolol (Tenormin) 25 mg PO DAILY [facility] Last Admin: 06/10/17 09:20 Dose: 25 mg Bisacodyl (Dulcolax) 10 mg [place] DAILYPRN PRN PRN Reason: Constipation Dextrose/Water (Dextrose 50%) 25 gm SLOW IVP PRN PRN PRN Reason: Hypoglycemia Docusate Sodium (Colace) 100 mg PO BID [facility] Last Admin: 06/10/17 09:21 Dose: Not Given Duloxetine HCl (Cymbalta) 60 mg PO DAILY [facility] Last Admin: 06/10/17 09:19 Dose: 60 mg Enoxaparin Sodium (Lovenox) 30 mg SC 0900 [facility] Last Admin: 06/10/17 09:22 Dose: 30 mg Famotidine (Pepcid) 20 mg PO DAILY [facility] Last Admin: 06/10/17 09:21 Dose: 20 mg Gabapentin (Neurontin) 100 mg PO TID [facility] Last Admin: 06/10/17 09:21 Dose: 100 mg Glucagon (Glucagon) 1 mg IM PRN PRN PRN Reason: Hypoglycemia Guaifenesin (Robitussin Sf) 200 mg PO Q4H PRN PRN Reason: Cough Lisinopril/HCTZ (Prinizide 10-12.5) 1 tab PO DAILY [facility] Last Admin: 06/10/17 09:18 Dose: 1 tab Hydralazine HCl (Apresoline) 10 mg SLOW IVP Q4H PRN PRN Reason: Systolic BP > 180 Last Admin: 06/09/17 22:59 Dose: 10 mg Dextrose/Water (D5w) 1,000 mls @ 0 mls/hr IV .Q0M PRN; As Directed PRN Reason: Hypoglycemia Insulin Detemir 40 units/ (Miscellaneous Medication) 0.4 mls @ 0 mls/hr SC BID [facility] Last Admin: 06/10/17 09:22 Dose: Not Given Promethazine HCl 25 mg/Miscellaneous Medication 1 each/ Sodium Chloride 51 mls @ 204 mls/hr IVPB Q6H PRN PRN Reason: Nausea Last Admin: 06/10/17 10:47 Dose: 51 mls Piperacillin Sod/Tazobactam (Sod 3.375 gm/ Sodium Chloride) 100 mls @ 200 mls/ hr IVPB Q6HR [facility] Insulin Human Lispro (Humalog) 0 units SC .AGGRESSIVE SLIDING PRN PRN Reason: Aggressive Correctional Scale Last Admin: 06/06/17 17:30 Dose: 3 unit Insulin Human Lispro (Humalog) 0 units SC .BEDTIME SLIDING SC PRN PRN Reason: Bedtime Correctional Scale Loperamide HCl (Imodium) 2 mg PO PRN PRN PRN Reason: Diarrhea/Loose Stools Loratadine (Claritin) 10 mg PO DAILYPRN PRN PRN Reason: Sinus Symptoms Magnesium Hydroxide (Milk Of Magnesium) 30 ml PO DAILYPRN PRN PRN Reason: Constipation Mineral Oil/White Petrolatum (Eucerin Cream) 0 gm TOP BIDPRN PRN PRN Reason: Dry Skin Morphine Sulfate (Morphine Sulfate) 1 mg SLOW IVP Q3H PRN PRN Reason: Pain Last Admin: 06/10/17 05:38 Dose: 1 mg Morphine Sulfate (Morphine Sulfate) 4 mg SLOW IVP Q4H PRN PRN Reason: Pain Last Admin: 06/10/17 09:32 Dose: 4 mg Ondansetron HCl (Zofran) 4 mg IVP Q6H PRN PRN Reason: Nausea/Vomiting Last Admin: 06/10/17 09:30 Dose: 4 mg Ondansetron HCl (Zofran Odt) 4 mg PO Q6H PRN PRN Reason: Nausea/Vomiting Oxycodone HCl (Oxycodone Ir) 10 mg PO QID [facility] Last Admin: 06/10/17 09:23 Dose: Not Given Pantoprazole Sodium (Protonix) 40 mg PO DAILY [facility] Last Admin: 06/10/17 09:20 Dose: 40 mg Phenol (Chloraseptic [place] 180 Ml Bot) 0 ml PO PRN PRN PRN Reason: Sore Throat Polyethylene Glycol (Miralax) 17 gm PO DAILY [facility] Last Admin: 06/10/17 09:23 Dose: Not Given Promethazine HCl (Phenergan) 25 mg IM/IV Q6H PRN PRN Reason: Nausea/Vomiting Last Admin: 06/09/17 11:29 Dose: 25 mg Senna (Senokot) 2 tab PO HSPRN PRN PRN Reason: Constipation Sodium Chloride ([place] Nasal [place] 0.65%) 0 ml EA NARE QIDPRN PRN PRN Reason: Nasal Congestion Sodium Chloride (Flush - Normal Saline) 10 ml IVF Q12HR [facility] Last Admin: 06/10/17 09:24 Dose: 10 ml Sodium Chloride (Flush - Normal Saline) 10 ml IVF PRN PRN PRN Reason: Saline Flush Last Admin: 06/07/17 05:17 Dose: 10 ml Temazepam (Restoril) 15 mg PO HSPRN PRN PRN Reason: Insomnia
[2017-06-10] MEDS: HumaLOG 300 UNITS/3 ML VIAL SC PRN (17:17)
[2017-06-11] MEDS: Piperacillin/Tazobactam 3.375 GM in Sodium Chloride 0.9% 100 ML IVPB SCH ×4 (00:26→16:56)
[2017-06-11] MEDS: Ondansetron HCl/PF 4 MG/2 ML Vial IVP PRN ×3 (08:33→20:32)
[2017-06-11] MEDS: Gabapentin 100 MG CAP PO SCH ×3 (08:34→20:30)
[2017-06-11] MEDS: Atenolol 25 MG TAB PO SCH (08:34)
[2017-06-11] MEDS: Docusate 100 MG CAP PO SCH ×2 (08:36→20:30)
[2017-06-11] MEDS: Enoxaparin Sodium 30 MG/0.3 ML SYRINGE SC SCH (08:36)
[2017-06-11] MEDS: Famotidine 20 MG TAB PO SCH (08:36)
[2017-06-11] MEDS: Lisinopril/Hydrochlorothiazide 10 mg/12.5 mg Tablet PO SCH (08:37)
[2017-06-11] MEDS: oxyCODONE 5 MG TAB PO SCH ×4 (08:38→20:30)
[2017-06-11] MEDS: Polyethylene Glycol 3350 17 GM Packet PO SCH (08:38)
[2017-06-11] MEDS: Insulin Detemir 100 UNITS/ML 40 UNITS in Pre-Filled Syringe 1 EACH SC SCH ×2 (08:49→20:33)
[2017-06-11] MEDS: PROMETHAZINE HCL IVPB PRN ×2 (08:55→15:40)
[2017-06-11] MEDS: ADMIXTURE FEE IVPB PRN ×2 (08:55→15:40)
[2017-06-11] MEDS: SODIUM CHLORIDE IVPB PRN ×2 (08:55→15:40)
--- NOTE | 2017-06-11 10:56 | PDOC.PN ---
- Subjective Encounter Start Date: 06/11/17 Encounter Start Time: 10:20 Patient seen and examined. No new complaints. No overnight events - Objective MAR Reviewed: Yes Vital Signs & Weight: Vital Signs (12 hours) Temp Pulse Resp BP BP Pulse Ox 06/11/17 08:37 80 173/111 H 06/11/17 08:35 80 173/111 H 06/11/17 08:34 80 173/111 H 06/11/17 08:00 97.7 F 80 20 96 06/11/17 04:48 98.0 F 79 20 161/89 H 97 Weight Admit Weight 309 lb 6.4 oz Weight 309 lb 6.4 oz I&O: 06/10/17 06/11/17 06/12/17 06:59 06:59 06:59 Intake Total 970 1999 Balance 970 1999 Result Diagrams: 06/09/17 03:59 06/09/17 03:59 Additional Labs: Accuchecks 06/11/17 06/10/17 06/10/17 04:50 20:01 15:58 POC Glucose 192 H 256 H 204 H 06/10/17 12:10 POC Glucose 187 H Phys Exam - Physical Examination Constitutional: NAD HEENT: PERRLA, moist MMs, sclera anicteric Neck: no JVD, supple Respiratory: no wheezing, no rales, no rhonchi Cardiovascular: RRR, no significant murmur, no rub Gastrointestinal: soft, non-tender, no distention, positive bowel sounds Musculoskeletal: no edema, pulses present left foot with dressing Neurological: non-focal, normal sensation, moves all 4 limbs Psychiatric: normal affect, A&O x 3 Skin: no rash, normal turgor Dx/Plan (1) Acute kidney failure Status: Resolved (2) Cellulitis and abscess of lower extremity Code(s): L03.119 - CELLULITIS OF UNSPECIFIED PART OF LIMB; L02.419 - CUTANEOUS ABSCESS OF LIMB, UNSPECIFIED Status: Acute (3) Hyperglycemia due to type 2 diabetes mellitus Code(s): E11.65 - TYPE 2 DIABETES MELLITUS WITH HYPERGLYCEMIA Status: Acute (4) Hyponatremia Code(s): E87.1 - HYPO-OSMOLALITY AND HYPONATREMIA Status: Resolved (5) Sepsis with acute organ dysfunction Code(s): A41.9 - SEPSIS, UNSPECIFIED ORGANISM; R65.20 - SEVERE SEPSIS WITHOUT SEPTIC SHOCK Status: Acute (6) Anxiety and depression Code(s): F41.8 - OTHER SPECIFIED ANXIETY DISORDERS Status: Chronic (7) Diabetes mellitus type II, uncontrolled Code(s): E11.65 - TYPE 2 DIABETES MELLITUS WITH HYPERGLYCEMIA Status: Chronic Qualifiers: Diabetes mellitus complication detail: with polyneuropathy (8) HTN (hypertension) Code(s): I10 - ESSENTIAL (PRIMARY) HYPERTENSION Status: Chronic Qualifiers: Hypertension type: essential hypertension Qualified Code(s): I10 - Essential (primary) hypertension Comment: (9) Hyperlipidemia Code(s): E78.5 - HYPERLIPIDEMIA, UNSPECIFIED Status: Chronic Comment: (10) Morbid obesity with BMI of 45.0-49.9, adult Code(s): E66.01 - MORBID (SEVERE) OBESITY DUE TO EXCESS CALORIES; Z68.42 - BODY MASS INDEX (BMI) 45.0-49.9, ADULT Status: Chronic (11) Constipation Code(s): K59.00 - CONSTIPATION, UNSPECIFIED Status: Resolved - Plan cont current plan of care, continue antibiotics * await C & S result for other bacteria to decide final antibiotics * medication reviewed as below * symptomatic treatment. * expecting to discharge on oral doxy and cipro on discharge. Review of Systems - Review of Systems ENT: negative: Ear Pain, Ear Discharge, Nose Pain, Nose Discharge, Nose Congestion, Mouth Pain, Mouth Swelling, Throat Pain, Throat Swelling, Other Respiratory: negative: Cough, Dry, Shortness of Breath, Hemoptysis, SOB with Excertion, Pleuritic Pain, Sputum, Wheezing Cardiovascular: negative: Chest Pain, Palpitations, Orthopnea, Paroxysmal Noc. Dyspnea, Edema, Light Headedness, Other Gastrointestinal: negative: Nausea, Vomiting, Abdominal Pain, Diarrhea, Constipation, Melena, Hematochezia, Other Genitourinary: negative: Dysuria, Frequency, Incontinence, Hematuria, Retention , Other Musculoskeletal: negative: Neck Pain, Shoulder Pain, Arm Pain, Back Pain, Hand Pain, Leg Pain, Foot Pain, Other - Medications/Allergies Allergies/Adverse Reactions: Allergies Allergy/AdvReac Type Severity Reaction Status Date / Time codeine AdvReac Verified 06/05/17 03:31 Medications: Current Medications Acetaminophen (Tylenol) 650 mg PO Q4H PRN PRN Reason: Headache/Fever or Pain Al Hydroxide/Mg Hydroxide (Maalox) 15 ml PO Q4H PRN PRN Reason: Heartburn or Indigestion Amlodipine Besylate (Norvasc) 5 mg PO DAILY [facility] Last Admin: 06/11/17 08:35 Dose: 5 mg Artificial Tears (Tears Naturale) 0 drop EA EYE PRN PRN PRN Reason: Dry Eyes Atenolol (Tenormin) 25 mg PO DAILY [facility] Last Admin: 06/11/17 08:34 Dose: 25 mg Bisacodyl (Dulcolax) 10 mg [place] DAILYPRN PRN PRN Reason: Constipation Dextrose/Water (Dextrose 50%) 25 gm SLOW IVP PRN PRN PRN Reason: Hypoglycemia Docusate Sodium (Colace) 100 mg PO BID [facility] Last Admin: 06/11/17 08:36 Dose: Not Given Duloxetine HCl (Cymbalta) 60 mg PO DAILY [facility] Last Admin: 06/11/17 08:35 Dose: 60 mg Enoxaparin Sodium (Lovenox) 30 mg SC 09 [facility] Last Admin: 06/11/17 08:36 Dose: 30 mg Famotidine (Pepcid) 20 mg PO DAILY [facility] Last Admin: 06/11/17 08:36 Dose: 20 mg Gabapentin (Neurontin) 100 mg PO TID [facility] Last Admin: 06/11/17 08:34 Dose: 100 mg Glucagon (Glucagon) 1 mg IM PRN PRN PRN Reason: Hypoglycemia Guaifenesin (Robitussin Sf) 200 mg PO Q4H PRN PRN Reason: Cough Lisinopril/HCTZ (Prinizide 10-12.5) 1 tab PO DAILY [facility] Last Admin: 06/11/17 08:37 Dose: 1 tab Hydralazine HCl (Apresoline) 10 mg SLOW IVP Q4H PRN PRN Reason: Systolic BP > 180 Last Admin: 06/09/17 22:59 Dose: 10 mg Dextrose/Water (D5w) 1,000 mls @ 0 mls/hr IV .Q0M PRN; As Directed PRN Reason: Hypoglycemia Insulin Detemir 40 units/ (Miscellaneous Medication) 0.4 mls @ 0 mls/hr SC BID [facility] Last Admin: 06/11/17 08:49 Dose: 0.4 mls Promethazine HCl 25 mg/Miscellaneous Medication 1 each/ Sodium Chloride 51 mls @ 204 mls/hr IVPB Q6H PRN PRN Reason: Nausea Last Admin: 06/11/17 08:55 Dose: 51 mls Piperacillin Sod/Tazobactam (Sod 3.375 gm/ Sodium Chloride) 100 mls @ 200 mls/ hr IVPB Q6HR [facility] Last Admin: 06/11/17 05:43 Dose: 100 mls Insulin Human Lispro (Humalog) 0 units SC .AGGRESSIVE SLIDING PRN PRN Reason: Aggressive Correctional Scale Last Admin: 06/10/17 17:17 Dose: 3 unit Insulin Human Lispro (Humalog) 0 units SC .BEDTIME SLIDING SC PRN PRN Reason: Bedtime Correctional Scale Last Admin: 06/10/17 21:11 Dose: 3 unit Loperamide HCl (Imodium) 2 mg PO PRN PRN PRN Reason: Diarrhea/Loose Stools Loratadine (Claritin) 10 mg PO DAILYPRN PRN PRN Reason: Sinus Symptoms Magnesium Hydroxide (Milk Of Magnesium) 30 ml PO DAILYPRN PRN PRN Reason: Constipation Mineral Oil/White Petrolatum (Eucerin Cream) 0 gm TOP BIDPRN PRN PRN Reason: Dry Skin Morphine Sulfate (Morphine Sulfate) 1 mg SLOW IVP Q3H PRN PRN Reason: Pain Last Admin: 06/10/17 05:38 Dose: 1 mg Morphine Sulfate (Morphine Sulfate) 4 mg SLOW IVP Q4H PRN PRN Reason: Pain Last Admin: 06/11/17 08:38 Dose: 4 mg Ondansetron HCl (Zofran) 4 mg IVP Q6H PRN PRN Reason: Nausea/Vomiting Last Admin: 06/11/17 08:33 Dose: 4 mg Ondansetron HCl (Zofran Odt) 4 mg PO Q6H PRN PRN Reason: Nausea/Vomiting Oxycodone HCl (Oxycodone Ir) 10 mg PO QID [facility] Last Admin: 06/11/17 08:38 Dose: Not Given Pantoprazole Sodium (Protonix) 40 mg PO DAILY [facility] Last Admin: 06/11/17 08:34 Dose: 40 mg Phenol (Chloraseptic [place] 180 Ml Bot) 0 ml PO PRN PRN PRN Reason: Sore Throat Polyethylene Glycol (Miralax) 17 gm PO DAILY [facility] Last Admin: 06/11/17 08:38 Dose: Not Given Promethazine HCl (Phenergan) 25 mg IM/IV Q6H PRN PRN Reason: Nausea/Vomiting Last Admin: 06/09/17 11:29 Dose: 25 mg Senna (Senokot) 2 tab PO HSPRN PRN PRN Reason: Constipation Sodium Chloride ([place] Nasal [place] 0.65%) 0 ml EA NARE QIDPRN PRN PRN Reason: Nasal Congestion Sodium Chloride (Flush - Normal Saline) 10 ml IVF Q12HR [facility] Last Admin: 06/11/17 08:38 Dose: 10 ml Sodium Chloride (Flush - Normal Saline) 10 ml IVF PRN PRN PRN Reason: Saline Flush Last Admin: 06/07/17 05:17 Dose: 10 ml Temazepam (Restoril) 15 mg PO HSPRN PRN PRN Reason: Insomnia
[2017-06-12] MEDS: Piperacillin/Tazobactam 3.375 GM in Sodium Chloride 0.9% 100 ML IVPB SCH ×3 (00:34→11:56)
[2017-06-12] MEDS: ADMIXTURE FEE IVPB PRN (03:15)
[2017-06-12] MEDS: SODIUM CHLORIDE IVPB PRN (03:15)
[2017-06-12] MEDS: PROMETHAZINE HCL IVPB PRN (03:15)
[2017-06-12] MEDS: Famotidine 20 MG TAB PO SCH (08:19)
[2017-06-12] MEDS: Gabapentin 100 MG CAP PO SCH ×2 (08:19→14:08)
[2017-06-12] MEDS: Atenolol 25 MG TAB PO SCH (08:20)
[2017-06-12] MEDS: Lisinopril/Hydrochlorothiazide 10 mg/12.5 mg Tablet PO SCH (08:21)
[2017-06-12] MEDS: oxyCODONE 5 MG TAB PO SCH ×2 (08:33→12:37)
[2017-06-12] MEDS: Enoxaparin Sodium 30 MG/0.3 ML SYRINGE SC SCH (08:35)
[2017-06-12] MEDS: Insulin Detemir 100 UNITS/ML 40 UNITS in Pre-Filled Syringe 1 EACH SC SCH (09:45)
[2017-06-12] MEDS: Polyethylene Glycol 3350 17 GM Packet PO SCH (09:46)
[2017-06-12] MEDS: Docusate 100 MG CAP PO SCH (09:46)
[2017-06-12] MEDS: Promethazine HCl 25 MG/ML VIAL IM/IV PRN (10:05)
--- NOTE | 2017-06-12 11:17 | PDOC.PN ---
- Subjective Encounter Start Date: 06/12/17 Encounter Start Time: 09:25 Patient seen and examined. No new complaints. No overnight events - Objective MAR Reviewed: Yes Vital Signs & Weight: Vital Signs (12 hours) Temp Pulse Resp BP Pulse Ox 06/12/17 09:42 96 06/12/17 08:21 74 06/12/17 08:20 74 06/12/17 08:19 74 06/12/17 07:55 97.6 F 74 16 158/79 H 96 06/12/17 07:44 98 F 72 18 06/12/17 03:38 98 F 72 18 162/78 H 96 Weight Admit Weight 309 lb 6.4 oz Weight 309 lb 6.4 oz I&O: 06/11/17 06/12/17 06/13/17 06:59 06:59 06:59 Intake Total 1999 2039 Balance 1999 2039 Result Diagrams: 06/09/17 03:59 06/09/17 03:59 Additional Labs: Accuchecks 06/12/17 06/11/17 06/11/17 04:42 20:20 15:58 POC Glucose 113 H 145 H 154 H 06/11/17 12:20 POC Glucose 150 H Phys Exam - Physical Examination Constitutional: NAD HEENT: PERRLA, moist MMs, sclera anicteric Neck: no JVD, supple Respiratory: no wheezing, no rales, no rhonchi Cardiovascular: RRR, no significant murmur, no rub Gastrointestinal: soft, non-tender, no distention, positive bowel sounds Musculoskeletal: no edema, pulses present left foot with dressing Neurological: non-focal, normal sensation Psychiatric: normal affect, A&O x 3 Skin: no rash, normal turgor Dx/Plan (1) Acute kidney failure Status: Resolved (2) Cellulitis and abscess of lower extremity Code(s): L03.119 - CELLULITIS OF UNSPECIFIED PART OF LIMB; L02.419 - CUTANEOUS ABSCESS OF LIMB, UNSPECIFIED Status: Acute (3) Hyperglycemia due to type 2 diabetes mellitus Code(s): E11.65 - TYPE 2 DIABETES MELLITUS WITH HYPERGLYCEMIA Status: Acute (4) Hyponatremia Code(s): E87.1 - HYPO-OSMOLALITY AND HYPONATREMIA Status: Resolved (5) Sepsis with acute organ dysfunction Code(s): A41.9 - SEPSIS, UNSPECIFIED ORGANISM; R65.20 - SEVERE SEPSIS WITHOUT SEPTIC SHOCK Status: Acute (6) Anxiety and depression Code(s): F41.8 - OTHER SPECIFIED ANXIETY DISORDERS Status: Chronic (7) Diabetes mellitus type II, uncontrolled Code(s): E11.65 - TYPE 2 DIABETES MELLITUS WITH HYPERGLYCEMIA Status: Chronic Qualifiers: Diabetes mellitus complication detail: with polyneuropathy (8) HTN (hypertension) Code(s): I10 - ESSENTIAL (PRIMARY) HYPERTENSION Status: Chronic Qualifiers: Hypertension type: essential hypertension Qualified Code(s): I10 - Essential (primary) hypertension Comment: (9) Hyperlipidemia Code(s): E78.5 - HYPERLIPIDEMIA, UNSPECIFIED Status: Chronic Comment: (10) Morbid obesity with BMI of 45.0-49.9, adult Code(s): E66.01 - MORBID (SEVERE) OBESITY DUE TO EXCESS CALORIES; Z68.42 - BODY MASS INDEX (BMI) 45.0-49.9, ADULT Status: Chronic (11) Constipation Code(s): K59.00 - CONSTIPATION, UNSPECIFIED Status: Resolved - Plan cont current plan of care, continue antibiotics * medication reviewed as below * symptomatic treatment. * see discharge summery * medically stable.. Review of Systems - Review of Systems ENT: negative: Ear Pain, Ear Discharge, Nose Pain, Nose Discharge, Nose Congestion, Mouth Pain, Mouth Swelling, Throat Pain, Throat Swelling, Other Respiratory: negative: Cough, Dry, Shortness of Breath, Hemoptysis, SOB with Excertion, Pleuritic Pain, Sputum, Wheezing Cardiovascular: negative: Chest Pain, Palpitations, Orthopnea, Paroxysmal Noc. Dyspnea, Edema, Light Headedness, Other Gastrointestinal: negative: Nausea, Vomiting, Abdominal Pain, Diarrhea, Constipation, Melena, Hematochezia, Other Genitourinary: negative: Dysuria, Frequency, Incontinence, Hematuria, Retention , Other - Medications/Allergies Allergies/Adverse Reactions: Allergies Allergy/AdvReac Type Severity Reaction Status Date / Time codeine AdvReac Verified 06/05/17 03:31 Medications: Current Medications Acetaminophen (Tylenol) 650 mg PO Q4H PRN PRN Reason: Headache/Fever or Pain Last Admin: 06/11/17 20:32 Dose: 650 mg Al Hydroxide/Mg Hydroxide (Maalox) 15 ml PO Q4H PRN PRN Reason: Heartburn or Indigestion Amlodipine Besylate (Norvasc) 5 mg PO DAILY [facility] Last Admin: 06/12/17 08:19 Dose: 5 mg Artificial Tears (Tears Naturale) 0 drop EA EYE PRN PRN PRN Reason: Dry Eyes Atenolol (Tenormin) 25 mg PO DAILY [facility] Last Admin: 06/12/17 08:20 Dose: 25 mg Bisacodyl (Dulcolax) 10 mg [place] DAILYPRN PRN PRN Reason: Constipation Dextrose/Water (Dextrose 50%) 25 gm SLOW IVP PRN PRN PRN Reason: Hypoglycemia Docusate Sodium (Colace) 100 mg PO BID [facility] Last Admin: 06/12/17 09:46 Dose: Not Given Duloxetine HCl (Cymbalta) 60 mg PO DAILY [facility] Last Admin: 06/12/17 08:20 Dose: 60 mg Enoxaparin Sodium (Lovenox) 30 mg SC 09 [facility] Last Admin: 06/12/17 08:35 Dose: 30 mg Famotidine (Pepcid) 20 mg PO DAILY [facility] Last Admin: 06/12/17 08:19 Dose: 20 mg Gabapentin (Neurontin) 100 mg PO TID [facility] Last Admin: 06/12/17 08:19 Dose: 100 mg Glucagon (Glucagon) 1 mg IM PRN PRN PRN Reason: Hypoglycemia Guaifenesin (Robitussin Sf) 200 mg PO Q4H PRN PRN Reason: Cough Last Admin: 06/11/17 16:55 Dose: 200 mg Lisinopril/HCTZ (Prinizide 10-12.5) 1 tab PO DAILY [facility] Last Admin: 06/12/17 08:21 Dose: 1 tab Hydralazine HCl (Apresoline) 10 mg SLOW IVP Q4H PRN PRN Reason: Systolic BP > 180 Last Admin: 06/11/17 12:38 Dose: 10 mg Dextrose/Water (D5w) 1,000 mls @ 0 mls/hr IV .Q0M PRN; As Directed PRN Reason: Hypoglycemia Insulin Detemir 40 units/ (Miscellaneous Medication) 0.4 mls @ 0 mls/hr SC BID [facility] Last Admin: 06/12/17 09:45 Dose: 0.4 mls Promethazine HCl 25 mg/Miscellaneous Medication 1 each/ Sodium Chloride 51 mls @ 204 mls/hr IVPB Q6H PRN PRN Reason: Nausea Last Admin: 06/12/17 03:15 Dose: 51 mls Piperacillin Sod/Tazobactam (Sod 3.375 gm/ Sodium Chloride) 100 mls @ 200 mls/ hr IVPB Q6HR [facility] Last Admin: 06/12/17 06:03 Dose: 100 mls Insulin Human Lispro (Humalog) 0 units SC .AGGRESSIVE SLIDING PRN PRN Reason: Aggressive Correctional Scale Last Admin: 06/10/17 17:17 Dose: 3 unit Insulin Human Lispro (Humalog) 0 units SC .BEDTIME SLIDING SC PRN PRN Reason: Bedtime Correctional Scale Last Admin: 06/10/17 21:11 Dose: 3 unit Loperamide HCl (Imodium) 2 mg PO PRN PRN PRN Reason: Diarrhea/Loose Stools Loratadine (Claritin) 10 mg PO DAILYPRN PRN PRN Reason: Sinus Symptoms Magnesium Hydroxide (Milk Of Magnesium) 30 ml PO DAILYPRN PRN PRN Reason: Constipation Mineral Oil/White Petrolatum (Eucerin Cream) 0 gm TOP BIDPRN PRN PRN Reason: Dry Skin Morphine Sulfate (Morphine Sulfate) 1 mg SLOW IVP Q3H PRN PRN Reason: Pain Last Admin: 06/10/17 05:38 Dose: 1 mg Morphine Sulfate (Morphine Sulfate) 4 mg SLOW IVP Q4H PRN PRN Reason: Pain Last Admin: 06/12/17 09:57 Dose: 4 mg Ondansetron HCl (Zofran) 4 mg IVP Q6H PRN PRN Reason: Nausea/Vomiting Last Admin: 06/11/17 20:32 Dose: 4 mg Ondansetron HCl (Zofran Odt) 4 mg PO Q6H PRN PRN Reason: Nausea/Vomiting Oxycodone HCl (Oxycodone Ir) 10 mg PO QID [facility] Last Admin: 06/12/17 08:33 Dose: 10 mg Pantoprazole Sodium (Protonix) 40 mg PO DAILY [facility] Last Admin: 06/12/17 08:20 Dose: 40 mg Phenol (Chloraseptic [place] 180 Ml Bot) 0 ml PO PRN PRN PRN Reason: Sore Throat Polyethylene Glycol (Miralax) 17 gm PO DAILY [facility] Last Admin: 06/12/17 09:46 Dose: Not Given Promethazine HCl (Phenergan) 25 mg IM/IV Q6H PRN PRN Reason: Nausea/Vomiting Last Admin: 06/12/17 10:05 Dose: 25 mg Senna (Senokot) 2 tab PO HSPRN PRN PRN Reason: Constipation Sodium Chloride ([place] Nasal [place] 0.65%) 0 ml EA NARE QIDPRN PRN PRN Reason: Nasal Congestion Sodium Chloride (Flush - Normal Saline) 10 ml IVF Q12HR PANCHO Last Admin: 06/12/17 10:04 Dose: Not Given Sodium Chloride (Flush - Normal Saline) 10 ml IVF PRN PRN PRN Reason: Saline Flush Last Admin: 06/07/17 05:17 Dose: 10 ml Sodium Hypochlorite (Dakin's Half Strength 0.25% Solution) 0 ml TOP DAILY PANCHO Temazepam (Restoril) 15 mg PO HSPRN PRN PRN Reason: Insomnia
--- NOTE | 2017-06-12 13:37 | DIS ---
DATE OF ADMISSION: 06/05/2017 DATE OF DISCHARGE: 06/12/2017 PRIMARY CARE PHYSICIAN: [facility] call admission. DISCHARGE DISPOSITION: Home. PRIMARY DISCHARGE DIAGNOSES: Cellulitis and diabetic foot infection of left foot, sepsis with acute organ dysfunction, acute kidney failure, hyperglycemia associated with diabetes type 2, hyponatremi a resolved, constipation resolved. SECONDARY DISCHARGE DIAGNOSES: Diabetes type 2, uncontrolled hypertension, Charcot's joint, dyslipi demia, and morbid obesity with body mass index of 47. PRIMARY PROCEDURE/OPERATION: None. RADIOLOGICAL INVESTIGATION: Chest x-ray, lower extremity MRI, CT lower extremity. SIGNIFICANT LABORATORY DATA: Hemoglobin 10.0, creatinine 1.10, CRP 8.38. Urinalysis suggestive of urinary tract infection. Culture from wound grew MRSA, Proteus mirabilis, E. coli and Klebsiella. Blood culture negative. DISCHARGE MEDICATIONS: On discharge, we changed IV antibiotic therapy to p.o. antibiotic therapy wi th Cipro 500 mg p.o. b.i.d., doxycycline 100 mg p.o. b.i.d., Florastor 250 mg p.o. daily for total o f 10 days. We added atenolol 25 mg p.o. daily for her blood pressure, Zofran 4 mg q.6 hourly p.r.n. prescribed for nausea. Rest of medication will be continued as per previous. CONTRAINDICATIONS: None. CODE STATUS: FULL CODE. INPATIENT CONSULTANTS: Dr. Rivera was consulted while in hospital. Wound care team was following ile in hospital. TEST RESULTS PENDING ON DISCHARGE: None. ALLERGIES: CODEINE. DISCHARGE PLAN: Post hospital, the patient will follow up with her primary care physician. This brent lunsford is originally from [place] and she is planning to move there in next couple of days and she will make appointment with primary care physician in [place]. HOSPITAL COURSE: A 46-year-old female who was admitted by Dr. Patino on 06/05/2017. This marcin vee was admitted for left foot cellulitis with diabetic foot infection. We consulted Dr. Rivera. Bety colón also did CT lower extremity and lower extremity MRI. Based on that report, the patient does not h ave any osteomyelitis. This patient treated with broad spectrum antibiotic therapy with vancomycin and Zosyn and wound care. We also controlled her diabetes with diabetes medication. She had initia lly acute kidney failure that was improved with IV fluid. She had constipation that was resolved wi th stool softener. Her symptoms of nausea and vomiting were controlled with symptomatic treatment, her sepsis resolved. Her acute kidney failure improved to normal. Wound care team said that wound is looking okay and necessary wound care education is given to the patient. Unfortunately, this pat ient has [place] Medicare and she cannot get any benefit in our [place] and that is why I advised th is patient to go back to her state, so she can get benefit of Medicare to get proper care of her diana betic foot. At this point, we are changing to p.o. antibiotic therapy. She is planning to move [facility] to [place] in next couple of days. The patient is medically stable for discharge. While in [facility], we added blood pressure medications atenolol 25 mg p.o. daily. The patient is seen and examined at bedside today. Please see my progress note from today for furth er details.
[2017-06-12] MEDS: Ondansetron HCl/PF 4 MG/2 ML Vial IVP PRN (14:08)
[2017-06-12 16:25] VITALS: BP 145/82; TEMP 97.7
[2017-06-13] MEDS ORDERED: Sodium Hypochlorite 0.25% Solution 480 ML BOT TOP SCH (09:00)
== END 2017-06-12 16:49 | disposition home or self-care (01) | DRG 872 ==
LOC: ERS 22:40 → T4-B 06-05 00:30
PROVIDERS: ADMIT Internal Medicine; ATTEND Internal Medicine
DX: A41.9 Sepsis, unspecified organism (principal); N17.9 Acute kidney failure, unspecified; E11.42 Type 2 diabetes mellitus with diabetic polyneuropathy; E11.621 Type 2 diabetes mellitus with foot ulcer; N39.0 Urinary tract infection, site not specified; Z68.42 Body mass index [BMI] 45.0-49.9, adult; E87.1 Hypo-osmolality and hyponatremia; L03.116 Cellulitis of left lower limb; I10 Essential (primary) hypertension; E78.5 Hyperlipidemia, unspecified; E66.01 Morbid (severe) obesity due to excess calories; Z88.5 Allergy status to narcotic agent; L97.529 Non-pressure chronic ulcer of other part of left foot with unspecified severity; E11.610 Type 2 diabetes mellitus with diabetic neuropathic arthropathy; R65.20 Severe sepsis without septic shock; E11.65 Type 2 diabetes mellitus with hyperglycemia; B95.62 Methicillin resistant Staphylococcus aureus infection as the cause of diseases classified elsewhere; B96.4 Proteus (mirabilis) (morganii) as the cause of diseases classified elsewhere; B96.20 Unspecified Escherichia coli [E. coli] as the cause of diseases classified elsewhere; B96.1 Klebsiella pneumoniae [K. pneumoniae] as the cause of diseases classified elsewhere; K59.00 Constipation, unspecified; Z89.422 Acquired absence of other left toe(s); Z96.652 Presence of left artificial knee joint; Z87.891 Personal history of nicotine dependence
CPT/HCPCS: 36415; 36416; 71010; 80048; 80053; 80069; 81003; 81015; 82570; 83036; 83605; 84100; 84156; 85025; 86140; 87040; 87070; 87077; 87086; 87186; 87205; 96365; 96366; 96367; 96375; A4216; J0360; J1650; J1815; J2270; J2405; J2543; J2550; J3370; J7050

== ENCOUNTER 2019-02-08 21:37 | Emergency (ER) | payer MEDICAID, SELFPAY ==
[2019-02-08] MEDS ORDERED: Haloperidol Lactate 5 MG/ML VIAL ONE (22:05)
[2019-02-08] MEDS ORDERED: Dicyclomine 20 MG TAB ONE (22:05)
[2019-02-08] MEDS ORDERED: Pantoprazole 40 MG VIAL ONE (22:05)
[2019-02-08 22:23] LABS: #Basophils 0.1 thou/uL (0.0-0.2); #Eosinphils 0.2 thou/uL (0.0-0.7); #Lymphocytes 3.2 thou/uL (1.20-3.40); #Monocytes 0.6 thou/uL (0.11-0.59); #Neutrophils 7.8 thou/uL (1.40-6.50); %Eosinophils 1.9 % (0.0-10.0); %Monocytes 4.8 % (0.0-10.0); %Neutrophils 65.4 % (42.0-75.0); Hemoglobin 12.7 g/dL (12.0-16.0); Mean Corpuscular HGB CONC 35.5 g/dL (32.0-36.0); Mean Corpuscular Hemoglobin 32.4 pg (27.0-31.0); Mean Corpuscular Volume 91.2 fL (78.0-98.0); Mean Platelet Volume 7.2 fL (7.4-10.4); Platelet Count 281 thou/uL (130-400); RBC Distribution Width 13.8 % (11.5-14.5); Red Blood Cell (RBC) Count 3.92 mill/uL (4.20-5.40); White Blood Cell (WBC) Count 11.9 thou/uL (4.8-10.8)
[2019-02-08 22:42] LABS: ALT (SGPT) 14 U/L (8-55); AST (SGOT) 16 U/L (5-34); Albumin 3.5 g/dL (3.5-5.0); Alkaline Phosphatase 124 U/L (40-150); Anion Gap 15 mmol/L (10-20); BUN (Urea Nitrogen) 34 mg/dL (7.0-18.7); Bilirubin, Total 0.3 mg/dL (0.2-1.2); CK (CPK) 141 U/L (29-168); Calc. Creatinine Clearance 0 mL/min (70-130); Calcium 9.8 mg/dL (7.8-10.44); Carbon Dioxide 25 mmol/L (22-29); Chloride 102 mmol/L (98-107); Estimated GFR-MDRD 20; Globulin 3.3 g/dL (2.4-3.5); Glucose 306 mg/dL (70-105); Lipase 45 U/L (8-78); Protein, Total 6.8 g/dL (6.0-8.3); Sodium 138 mmol/L (136-145)
[2019-02-08 23:11] LABS: Bilirubin Negative (Negative); Blood, Urine Moderate (Negative); Clarity CLEAR (Clear); Glucose, Urine (Dipstick) >=1000 mg/dL (Negative); Leukocyte Negative (Negative); Nitrite Negative (Negative); Protein, Urine (Dipstick) > or equal to 300 mg/dL (Neg-Trace); Urobilinogen 0.2 mg/dL (0.2-1.0)
[2019-02-08 23:14] LABS: Bacteria/HPF Rare-Few HPF (None Seen); Hyaline Casts/LPF 7-10 HYALINE CAST LPF (0-3 Hyaline); Pathc Cast-AUWi Flag 1.22 (0-2.49)
[2019-02-08 23:18] LABS: Oval Fat Bodies/HPF None Seen HPF (None Seen); Renal Epithelial None Seen HPF (0-3); Sperm/HPF None Seen HPF (None Seen); Transitional Epithelial NONE SEEN HPF (0-3); Trichomonas/HPF None Seen HPF (None Seen); Yeast-All Forms None Seen HPF (None Seen)
[2019-02-08] MEDS ORDERED: Morphine 4 MG/ML VIAL ONE (23:24)
--- NOTE | 2019-02-08 23:33 | ULT ---
Right lower extremity venous Doppler ultrasound evaluation. [place] history: Right lower extremity pain. Multiple longitudinal and transverse images of the right lower extremity venous systems obtained usin g a multi hertz linear array transducer. Real-time, color flow and spectral waveform Doppler analysis used to evaluate the right lower extremity venous system. Images demonstrate no evidence of acute or old clot seen in the right common femoral vein, superficia l femoral vein, femoral profunda, popliteal vein and posterior tibial vein. The right greater saphenous vein is also patent. IMPRESSION: No evidence of right lower extremity deep venous thrombosis.
== END 2019-02-09 01:02 | disposition home or self-care (01) ==
LOC: ERS 21:37
DX: R11.2 Nausea with vomiting, unspecified (principal); R10.9 Unspecified abdominal pain; E11.9 Type 2 diabetes mellitus without complications; I10 Essential (primary) hypertension; Z87.891 Personal history of nicotine dependence
CPT/HCPCS: 80053; 81003; 81015; 82550; 83605; 83690; 84484; 85025; 87077; 87086; 87186; 94760; 96361; 96372; 96374; 96375; C9113; J0500; J1630; J2270

== ENCOUNTER 2019-02-25 11:36 | Emergency (ER) | payer SELFPAY ==
[2019-02-25 12:12] LABS: Bilirubin Negative (Negative); Blood, Urine Small (Negative); Clarity CLOUDY (Clear); Glucose, Urine (Dipstick) >=1000 mg/dL (Negative); Leukocyte Negative (Negative); Nitrite Negative (Negative); Protein, Urine (Dipstick) > or equal to 300 mg/dL (Neg-Trace); Specific Gravity, Urine 1.028 (1.002-1.036); Urobilinogen 0.2 mg/dL (0.2-1.0)
[2019-02-25 12:14] LABS: Bacteria/HPF 1+ HPF (None Seen); Hyaline Casts/LPF 4-6 HYALINE CAST LPF (0-3 Hyaline); Pathc Cast-AUWi Flag 0.81 (0-2.49)
[2019-02-25 13:03] LABS: #Basophils 0.1 thou/uL (0.0-0.2); #Eosinphils 0.2 thou/uL (0.0-0.7); #Lymphocytes 1.9 thou/uL (1.20-3.40); #Monocytes 0.4 thou/uL (0.11-0.59); #Neutrophils 5.2 thou/uL (1.40-6.50); %Basophils 0.8 % (0.0-1.0); %Eosinophils 3.1 % (0.0-10.0); %Lymphocytes 24.7 % (21.0-51.0); %Monocytes 4.5 % (0.0-10.0); %Neutrophils 66.9 % (42.0-75.0); Hemoglobin 12.9 g/dL (12.0-16.0); Mean Corpuscular HGB CONC 34.4 g/dL (32.0-36.0); Mean Corpuscular Hemoglobin 31.5 pg (27.0-31.0); Mean Corpuscular Volume 91.5 fL (78.0-98.0); Mean Platelet Volume 7.5 fL (7.4-10.4); Platelet Count 279 thou/uL (130-400); RBC Distribution Width 12.9 % (11.5-14.5); Red Blood Cell (RBC) Count 4.09 mill/uL (4.20-5.40); White Blood Cell (WBC) Count 7.8 thou/uL (4.8-10.8)
[2019-02-25 13:36] LABS: ALT (SGPT) 13 U/L (8-55); AST (SGOT) 12 U/L (5-34); Albumin 3.4 g/dL (3.5-5.0); Alkaline Phosphatase 119 U/L (40-150); Anion Gap 16 mmol/L (10-20); BUN (Urea Nitrogen) 35 mg/dL (7.0-18.7); Bilirubin, Total 0.3 mg/dL (0.2-1.2); Calc. Creatinine Clearance 0 mL/min (70-130); Calcium 9.3 mg/dL (7.8-10.44); Carbon Dioxide 21 mmol/L (22-29); Chloride 100 mmol/L (98-107); Estimated GFR-MDRD 24; Globulin 3.8 g/dL (2.4-3.5); Glucose 353 mg/dL (70-105); Lipase 58 U/L (8-78); Potassium 4.5 mmol/L (3.5-5.1); Protein, Total 7.2 g/dL (6.0-8.3); Sodium 132 mmol/L (136-145)
[2019-02-25] MEDS ORDERED: Promethazine HCl 25 MG/ML VIAL ONE (15:36)
[2019-02-25] MEDS ORDERED: Morphine 4 MG/ML VIAL ONE (15:36)
[2019-02-25] MEDS ORDERED: Ketorolac Tromethamine 30 MG/ML VIAL ONE (15:36)
--- NOTE | 2019-02-25 15:47 | CT ---
CT abdomen and pelvis noncontrast HISTORY: Flank pain. FINDINGS: No comparison. Each renal collecting system, ureter, and urinary bladder are decompressed w ithout stone evident. Lack of contrast limits evaluation for other abnormalities. Gallbladder surgically absent. Liver is d iffusely hypodense. No evidence of bowel obstruction. Degenerative changes lumbar spine. IMPRESSION: No CT evidence of urinary tract obstruction or calcification. Hepatic steatosis. Status post cholecystectomy.
[2019-02-25 16:44] LABS: Base Excess-Venous -1.5 mmol/L (-2.0 to 3.0); Bicarbonate (HCO3v) 24.8 mmol/L (22.0-28.0); CO2 Tension (PvCO2) 46.4 mmHg (40.0-50.0); Chloride 101 mmol/L (98-107); Hemoglobin - Calc 14.2 g/dL (12.0-16.0); O2 Tension (PvO2) 42.5 mmHg (35.0-45.0); Potassium 4.6 mmol/L (3.5-5.1); Sodium 138 mmol/L (138-145); T. Carbon Dioxide 26.2 mmol/L (22.0-28.0); pH (Venous) 7.336 (7.320-7.430); vO2 Saturation-calc 74.4 % (60.0-85.0)
== END 2019-02-25 18:46 | disposition home or self-care (01) ==
LOC: ERS 11:36
DX: M54.5 Low back pain (principal); E11.40 Type 2 diabetes mellitus with diabetic neuropathy, unspecified; E78.5 Hyperlipidemia, unspecified; F32.9 Major depressive disorder, single episode, unspecified; Z87.891 Personal history of nicotine dependence; Z79.899 Other long term (current) drug therapy; Z79.4 Long term (current) use of insulin
CPT/HCPCS: 36415; 36416; 74176; 80053; 81003; 81015; 82010; 82330; 82803; 83690; 85025; 96361; 96365; 96375; J1885; J2270; J2550

== ENCOUNTER 2019-02-26 14:47 | Emergency (ER) | payer SELFPAY ==
[2019-02-26] MEDS ORDERED: Cyclobenzaprine 10 MG TAB ONE (15:48)
== END 2019-02-26 15:53 | disposition home or self-care (01) ==
LOC: ERS 14:47
DX: M54.5 Low back pain (principal); E11.40 Type 2 diabetes mellitus with diabetic neuropathy, unspecified; E78.5 Hyperlipidemia, unspecified; I10 Essential (primary) hypertension; F32.9 Major depressive disorder, single episode, unspecified; Z87.891 Personal history of nicotine dependence; Z79.899 Other long term (current) drug therapy; Z79.4 Long term (current) use of insulin
CPT/HCPCS: 99283

== ENCOUNTER 2019-10-13 16:45 | Inpatient (IN) | payer SELFPAY ==
[2019-10-13 17:10] LABS: #Basophils 0.1 thou/uL (0.0-0.2); #Eosinphils 0.5 thou/uL (0.0-0.7); #Lymphocytes 2.7 thou/uL (1.20-3.40); #Monocytes 0.6 thou/uL (0.11-0.59); #Neutrophils 7.3 thou/uL (1.40-6.50); %Basophils 0.9 % (0.0-1.0); %Eosinophils 4.6 % (0.0-10.0); %Lymphocytes 24.2 % (21.0-51.0); %Monocytes 4.9 % (0.0-10.0); %Neutrophils 65.4 % (42.0-75.0); Hemoglobin 11.3 g/dL (12.0-16.0); Mean Corpuscular HGB CONC 32.8 g/dL (32.0-36.0); Mean Corpuscular Hemoglobin 30.4 pg (27.0-31.0); Mean Corpuscular Volume 92.7 fL (78.0-98.0); Mean Platelet Volume 7.4 fL (7.4-10.4); Platelet Count 289 thou/uL (130-400); RBC Distribution Width 13.3 % (11.5-14.5); Red Blood Cell (RBC) Count 3.72 mill/uL (4.20-5.40); White Blood Cell (WBC) Count 11.2 thou/uL (4.8-10.8)
[2019-10-13 17:31] LABS: ALT (SGPT) 12 U/L (8-55); AST (SGOT) 10 U/L (5-34); Alkaline Phosphatase 99 U/L (40-110); Anion Gap 14 mmol/L (10-20); BUN (Urea Nitrogen) 42 mg/dL (7.0-18.7); Bilirubin, Total 0.2 mg/dL (0.2-1.2); CK (CPK) 116 U/L (29-168); Calc. Creatinine Clearance 0 mL/min (70-130); Calcium 8.3 mg/dL (7.8-10.44); Carbon Dioxide 23 mmol/L (22-29); Chloride 109 mmol/L (98-107); Estimated GFR-MDRD 13; Globulin 3.5 g/dL (2.4-3.5); Glucose 215 mg/dL (70-105); Potassium 4.5 mmol/L (3.5-5.1); Protein, Total 6.5 g/dL (6.0-8.3); Sodium 141 mmol/L (136-145)
[2019-10-13] MEDS ORDERED: Aspirin Chewable 81 MG TAB ONE (17:31)
[2019-10-13] MEDS ORDERED: Ondansetron PF 4 MG/2 ML Vial ONE (17:31)
[2019-10-13] MEDS ORDERED: Ketorolac Tromethamine 30 MG/ML VIAL ONE (17:31)
[2019-10-13] MEDS ORDERED: Nitroglycerin 2% Ointment 1 INCH/1 GM Packet ONE (17:31)
--- NOTE | 2019-10-13 17:31 | RAD ---
CHEST TWO VIEWS: HISTORY: Chest pain. COMPARISON: None. FINDINGS: Two views of the chest show an enlarged cardiomediastinal silhouette. There is no evidence of consoli dation, mass or pleural effusion. Degenerative changes are seen in the spine. IMPRESSION: Cardiomegaly. POS: [facility]
[2019-10-13 20:16] LABS: Troponin I 0.086 ng/mL (< 0.028)
[2019-10-13] MEDS: traMADol HCl 50 MG TAB PO PRN (22:50)
[2019-10-13] MEDS: Nitroglycerin 2% Ointment 1 INCH/1 GM Packet TOP SCH (22:51)
[2019-10-13] MEDS: Promethazine HCl 12.5 MG in Sodium Chloride 0.9% 50 ML IVPB PRN (23:22)
[2019-10-14] MEDS: Nitroglycerin 2% Ointment 1 INCH/1 GM Packet TOP SCH (06:26)
[2019-10-14] MEDS: traMADol HCl 50 MG TAB PO PRN ×3 (06:31→22:04)
[2019-10-14] MEDS: Promethazine HCl 12.5 MG in Sodium Chloride 0.9% 50 ML IVPB PRN (06:47)
[2019-10-14] MEDS ORDERED: Dextrose 50% Abboject 50 ML SYRINGE SLOW IVP PRN (08:37)
[2019-10-14] MEDS ORDERED: Dextrose 5% in Water 1,000 ML IV PRN (08:37)
[2019-10-14] MEDS ORDERED: Regadenoson 0.4 MG/5 ML SYRINGE ONE (08:51)
[2019-10-14] MEDS ORDERED: Non-Formulary Item 1 EACH (Gabapentin [Gabapentin] 800 MG) PO SCH (09:00)
[2019-10-14] MEDS ORDERED: LIRAGLUTIDE 0.6 MG SC SCH (09:00)
[2019-10-14 09:20] LABS: Hemoglobin A1c 9.8 % (4.0-6.0)
[2019-10-14] MEDS ORDERED: Amlodipine 5 MG TAB PO SCH (09:30)
[2019-10-14] MEDS: Metoprolol Tartrate 100 MG TAB PO SCH ×2 (09:43→12:10)
[2019-10-14] MEDS ORDERED: Gabapentin 400 MG CAP PO SCH (09:45)
--- NOTE | 2019-10-14 09:45 | HP ---
PRIMARY CARE PROVIDER: Out of state. CHIEF COMPLAINT: Referred to the [facility] Hospitalist Service by [facility] for hypertension and chest pain. HISTORY OF PRESENT ILLNESS: The patient had a recent move to [place]. She denies a local doctor. Only recent physician she has seen is a diabetic specialist in [place], who pertinently dropped her amlodipine. She comes in complaining of chest pain. It is a stinging burning sensation lasts less than 5 minutes. No precipitating factors happened 4 to 5 times last night. She notes radiation into her neck and shoulders. However, the neck and shoulder pain seems to be a constant pain and not definitely associated. She has had some hot flashes, but no sweats. She has had nausea with no emesis. PAST MEDICAL HISTORY: Pertinent for diabetes mellitus type 2, insulin dependent for 20 plus years; hypertension; depression; peripheral neuropathy in her legs; elevated cholesterol. CURRENT MEDICATIONS: 1. Victoza 0.6 mg subcutaneous daily. 2. Lisinopril 40 mg a day. 3. Metoprolol 100 mg a day. 4. Levemir 80 units subcutaneous q.h.s. 5. Cymbalta 60 mg a day. 6. Gabapentin 800 mg 3 times a day. ALLERGIES: TO CODEINE CAUSES HALLUCINATIONS. PAST SURGICAL HISTORY: Cholecystectomy, appendectomy, x3, hysterectomy, 2 lumbar spine surgeries, a left total knee replacement, and a left BKA amputation. FAMILY HISTORY: With multiple diseases on both sides of her family including hypertension, coronary artery disease, cancers, strokes, breast, stomach, lung. SOCIAL HISTORY: . Next of kin, son, Jm Castro. Full code status. She quit smoking with her first and drinks no alcohol. REVIEW OF SYSTEMS: GENERAL: No headaches, dizziness, or fainting. EYES: Blurred vision when her blood sugars up. No double vision or flashing lights. EARS, NOSE, AND THROAT: No ear pain or drainage, nose bleeding, trouble swallowing, pain in her mouth. CARDIAC: In addition to the present illness she says that she is occasionally short of breath lying down. However, gets better if she rolls on her side. She states she thinks the problem is her "boobs." RESPIRATORY: She has a chronic cough. No asthma or wheezing. GASTROINTESTINAL: See present illness. No abdominal pain, diarrhea, or constipation. GENITOURINARY: No hematuria or dysuria. In questioning, she is unaware she has chronic kidney disease. MUSCULOSKELETAL: No swelling in her right leg. NEUROLOGIC: No history of strokes or seizures. PSYCHIATRIC: She states she is stable on medicines. She calls it her homicide medicines. When questioned she states it prevents homicide. SKIN: No bruising, bleeding, or rash. HEME/LYMPH: No tender or swollen lymph nodes at axilla, inguinal, or cervical area. PHYSICAL EXAMINATION: GENERAL: Alert, oriented, cooperative, pleasant lady. VITAL SIGNS: Temperature 98, pulse 75, blood pressure 151/78, respirations 16, previous blood pressures have been 165/80, 183/102, 181/100. HEAD, EYES, EARS, NOSE, AND THROAT: Revealed pupils are equal, round, and reactive. Extraocular movements are intact. Sclerae are white. Tympanic membranes were not evaluated. Nose is clear. Oral mucous membranes are wet. Dental hygiene was adequate. NECK: No jugular venous distention, adenopathy, or thyromegaly. She did have a short thick neck. CHEST: Grossly clear to auscultation and percussion. HEART: Regular rate and rhythm. No murmurs. No gallops. ABDOMEN: Soft. Bowel sounds are normal. There is no hepatosplenomegaly. No mass. No rebound. EXTREMITIES: Reveal no cyanosis, clubbing, or edema. She did have a left BKA amputation with no lesions in the stump. PULSES: Carotid, radial, femoral pulses intact. Right pedal pulse was intact. SKIN: Warm and dry without bruise, rash, or lesion. HEME/LYMPH: No adenopathy was appreciated. NEUROLOGIC: Cranial nerves 2 through 12 are intact. Moves all extremities. DIAGNOSTIC STUDIES: Chest x-ray, personally reviewed, no cardiomegaly, CHF, or infiltrate. EKG personally reviewed, regular sinus rhythm, right bundle branch block. Nonspecific T-wave flattening in the precordial leads. LABORATORY DATA: Comprehensive metabolic profile; sodium and potassium normal, chloride 109, CO2 of 23, BUN 43, creatinine 3.63, blood sugar 215. Liver function tests normal. BNP mildly elevated at 401. Troponin 0.027, 0.086, 0.020. CBC; white count 11.2, hemoglobin 11.3, platelet count 289,000. ADMITTING DIAGNOSES: 1. Atypical chest pain. 2. Diabetes mellitus, insulin dependent with peripheral neuropathy and chronic kidney disease stage 3 to 4. 3. Hypertension, uncontrolled. Recently had amlodipine discontinued. 4. Peripheral neuropathy. 5. Elevated cholesterol. 6. Left below-knee amputation. PLAN: EKG shows no significant acute change. Cardiac enzymes are not remarkable. A nuclear medicine stress test will be done. Her usual medicines will be instituted. Hypoglycemia protocol will be followed. Aspirin has been given and will be continued. I note no aspirin on her routine medicines. Job ID: [id number]
[2019-10-14] MEDS: Aspirin 325 mg Enteric Coated Tablet PO SCH (09:49)
[2019-10-14] MEDS: DULoxetine 60 MG CAP PO SCH (09:49)
[2019-10-14] MEDS: Ondansetron ODT 4 MG TAB PO PRN ×2 (13:27→22:04)
[2019-10-14] MEDS: HumaLOG 300 UNITS/3 ML VIAL SC PRN ×2 (13:29→17:50)
[2019-10-14] MEDS: Gabapentin 400 MG CAP PO SCH ×2 (15:45→22:06)
--- NOTE | 2019-10-14 16:13 | PDOC.EVN ---
Event Note - Event Note Event Note: 2 daay stress
[2019-10-14] MEDS ORDERED: Non-Formulary Item 1 EACH (Insulin Detemir 100 Units/Ml [Levemir] 80 UNIT) SQ SCH (21:00)
[2019-10-14] MEDS ORDERED: Lisinopril 20 MG TAB PO SCH (21:00)
[2019-10-14] MEDS ORDERED: Non-Formulary Item 1 EACH (Lisinopril [Lisinopril] 40 MG) PO SCH (21:00)
[2019-10-14] MEDS: Insulin Glargine 80 UNITS in Pre-Filled Syringe 1 EACH SC SCH (22:07)
[2019-10-15] MEDS: traMADol HCl 50 MG TAB PO PRN ×4 (04:19→22:09)
[2019-10-15] MEDS: Ondansetron ODT 4 MG TAB PO PRN ×4 (04:20→22:09)
[2019-10-15] MEDS: Aspirin 325 mg Enteric Coated Tablet PO SCH (09:21)
[2019-10-15] MEDS: Metoprolol Tartrate 100 MG TAB PO SCH ×2 (09:21→20:19)
[2019-10-15] MEDS: DULoxetine 60 MG CAP PO SCH (09:21)
[2019-10-15] MEDS: Gabapentin 400 MG CAP PO SCH ×2 (09:22→15:07)
--- NOTE | 2019-10-15 09:27 | NM ---
Nuclear medicine Cardiac myocardial perfusion SPECT Ejection fraction study Wall motion cine: DATE:10/14/2019 8:37 AM INDICATION: Chest pain TECHNIQUE: Number of days:2 Rest Study: Technetium 99m-sestamibi (Cardiolite) dose:30.40 mCi Stress study: Technetium 99m-sestamibi (Cardiolite) dose:27.10 mCi FINDINGS: Cardiac (myocardial perfusion) SPECT There is a large size region of prominent reduced radiotracer uptake involving the basal to apical le ft lateral ventricle wall. A majority of this region is predominantly fixed; however, there is a rim of reversible perfusion surrounding this region in the left lateral ventricular wall. Findings ar e consistent with a large sized left lateral ventricular wall infarct with scar with surrounding reversible myocardial ischemia. There is a small size region of moderately reduced uptake involving the mid left anterior ventricular wall that improves with rest. Ejection fraction study Left ventricular EF = 48% Wall motion cine There is no appreciable thickening involving the left lateral ventricular wall. There is hypokinesia of the left lateral ventricular wall. There is left ventricular dilatation with rest and stress imaging. IMPRESSION: Abnormal myocardial perfusion evaluation. 1. There is a large size fixed myocardial perfusion defect involving the left lateral ventricle wall with no appreciable wall thickening and hypokinesia consistent with an area of myocardial infarct and scar. There is a surrounding rim of reversible myocardial perfusion reversibility suggesting a melendrez rrounding rim of myocardial ischemia involving the left lateral ventricle. 2. Mild-sized region of reversible myocardial ischemia involving the mid segment of the left anterior ventricular wall. 3. Left ventricular dilatation seen with rest and stress imaging. 4. Left ventricular EF estimated at 48%
--- NOTE | 2019-10-15 13:58 | PDOC.HOSPP ---
- Subjective Encounter Date: 10/15/19 Encounter Time: 13:53 Subjective: no chest pain - Objective Vital Signs & Weight: Vital Signs (12 hours) Temp Pulse Resp BP BP Pulse Ox 10/15/19 11:46 98 F 70 20 141/78 H 96 10/15/19 07:46 97.2 F L 82 18 175/90 H 96 10/15/19 04:21 76 18 172/86 H 93 L Weight Weight 310 lb I&O: 10/14/19 10/15/19 10/16/19 06:59 06:59 06:59 Intake Total 290 1100 Output Total 300 Balance -10 1100 Result Diagrams: 10/13/19 17:00 10/13/19 17:00 Additional Labs: Accuchecks 10/15/19 10/15/19 10/14/19 11:09 06:03 20:24 POC Glucose 200 H 160 H 208 H 10/14/19 17:08 POC Glucose 242 H Hospitalist ROS - Medication Medications: Active Medications Generic Name Dose Route Start Last Admin Trade Name Matq PRN Reason Stop Dose Admin Aspirin 325 mg 10/14/19 09:00 10/15/19 09:21 Ecotrin PO 325 mg DAILY PANCHO Administration Duloxetine HCl 60 mg 10/14/19 09:00 10/15/19 09:21 Cymbalta PO 60 mg DAILY PANCHO Administration Gabapentin 800 mg 10/14/19 15:00 10/15/19 09:22 Neurontin PO 800 mg TID PANCHO Administration Insulin Glargine 80 units/ 0.8 mls @ 0 mls/hr 10/14/19 21:00 10/14/19 22:07 Miscellaneous Medication SC 0.8 mls HS PNACHO Administration Insulin Human Lispro 0 units 10/14/19 08:37 10/14/19 17:50 Humalog SC 3 unit .MILD SLIDING SCALE PRN Administration Mild Correctional Scale Lisinopril 40 mg 10/14/19 21:00 10/14/19 22:06 Zestril PO 40 mg HS PANCHO Administration Metoprolol Tartrate 100 mg 10/14/19 09:00 10/15/19 09:21 Lopressor PO 100 mg QAM PANCHO Administration Ondansetron HCl 4 mg 10/14/19 12:31 10/15/19 10:14 Zofran Odt PO 4 mg Q6H PRN Administration Nausea/Vomiting Sodium Chloride 10 ml 10/14/19 09:00 10/15/19 09:22 Flush - Normal Saline IVF 10 ml Q12HR PANCHO Administration Tramadol HCl 50 mg 10/14/19 12:31 10/15/19 10:15 Ultram PO 50 mg Q6H PRN Administration Pain - Exam General Appearance: awake alert Neck: no JVD Heart: RRR, no murmur Respiratory: CTAB Gastrointestinal: soft, normal bowel sounds Extremities: no edema Hosp A/P (1) Chest pain Code(s): R07.9 - CHEST PAIN, UNSPECIFIED Status: Acute Qualifiers: Chest pain type: precordial pain Qualified Code(s): R07.2 - Precordial pain (2) Diabetes mellitus type II, uncontrolled Code(s): E11.65 - TYPE 2 DIABETES MELLITUS WITH HYPERGLYCEMIA Status: Chronic (3) HTN (hypertension) Code(s): I10 - ESSENTIAL (PRIMARY) HYPERTENSION Status: Chronic Qualifiers: Hypertension type: essential hypertension Qualified Code(s): I10 - Essential (primary) hypertension (4) Hyperlipidemia Code(s): E78.5 - HYPERLIPIDEMIA, UNSPECIFIED Status: Chronic (5) Anxiety and depression Code(s): F41.8 - OTHER SPECIFIED ANXIETY DISORDERS Status: Chronic - Plan pos stress test-cardiology consult cont current tx for HTN, DM 2
[2019-10-15 16:56] LABS: Albumin 2.9 g/dL (3.5-5.0); Anion Gap 14 mmol/L (10-20); BUN (Urea Nitrogen) 47 mg/dL (7.0-18.7); BUN/Creatinine Ratio 12.81; CK (CPK) 77 U/L (29-168); Calc. Creatinine Clearance 42 mL/min (70-130); Calcium 8.4 mg/dL (7.8-10.44); Carbon Dioxide 21 mmol/L (22-29); Chloride 109 mmol/L (98-107); Estimated GFR-MDRD 13; Glucose 177 mg/dL (70-105); Phosphorus 5.4 mg/dL (2.3-4.7); Sodium 139 mmol/L (136-145)
[2019-10-15] MEDS ORDERED: Amlodipine 5 MG TAB PO SCH (18:00)
[2019-10-15] MEDS ORDERED: Sodium Bicarbonate 50 MEQ in Sodium Chloride 0.45% 1,000 ML IV SCH (18:15)
--- NOTE | 2019-10-15 18:46 | CON ---
DATE OF CONSULTATION: 10/15/2019 SERVICE: Nephrology. REASON FOR CONSULTATION: Renal failure and need for cardiac catheterization. REQUESTING PHYSICIAN: Dr. Schroeder. HISTORY OF PRESENT ILLNESS: The patient is a 48-year-old female with known history of hypertension and diabetes as well as prior left BKA, who was admitted for evaluation of recurrent chest pain. Further evaluation with stress test showed abnormal stress test with reversible ischemia, hence, need for cardiac catheterization. The patient, however, was found to have elevated creatinine of 3.6 on presentation. Nephrology consult was requested for optimization of the patient prior to cardiac catheterization given high risk for contrast-induced nephropathy. The patient denied prior knowledge of chronic kidney disease. Had never seen a 911 dispatcher before. Denied nausea, vomiting, abdominal pain, or change in bowel habit. Admitted to occasional right leg edema. The patient has BKA for complicated diabetic foot ulcer. The patient has been diabetic for more than 19 years. She is also a former smoker for about 12 years and quit about 22 years ago. She has chronic back pain, for which she takes gabapentin. Patient also admitted to regular use of NSAIDs for several years till april 2019 when she was asked by crime data specialist to stop. PAST MEDICAL HISTORY: 1. Diabetic mellitus. 2. Hypertension. 3. Morbid Obesity. 4. Peripheral artery disease and diabetic foot ulcer, status post left BKA. 5. Depression. 6. Peripheral neuropathy. 7. Hyperlipidemia. 8. Nephrolithiasis PAST SURGICAL HISTORY: 1. Cholecystectomy. 2. Appendectomy. 3. section. 4. Hysterectomy. 5. Lumbar spine surgery. 6. Left total knee replacement. 7. Left BKA. FAMILY HISTORY: Significant for hypertension, diabetes, gout, and chronic kidney disease in father. Mother also had hypertension, heart disease. SOCIAL HISTORY: The patient is . Recently moved to the area from [place]. Son is the surrogate decision maker. ALLERGIES: THE PATIENT REPORTS ADVERSE REACTION TO CODEINE, WHICH SHE REPORTED HALLUCINATIONS. MEDICATIONS: Prior to hospital medications: 1. Cymbalta 60 mg p.o. daily. 2. Gabapentin 800 mg p.o. t.i.d. 3. Levemir 80 units subcutaneously at bedtime. 4. Victoza 0.6 mg subcutaneously daily. 5. Lisinopril 40 mg p.o. daily at bedtime. 6. Metoprolol 100 mg p.o. daily in the morning. REVIEW OF SYSTEMS: A 12-point review of systems performed was negative other than pertinent positives and negatives included in the history of present illness. PHYSICAL EXAMINATION: VITAL SIGNS: Temperature 97.3, pulse 70, respiratory rate 16, SpO2 of 96% on room air, blood pressure is 181/95. GENERAL: Morbidly obese female, in no obvious distress. Afebrile. Anicteric. Acyanotic. HEENT: Normocephalic and atraumatic. Oral mucosa is moist. NECK: Thick with mildly excessive subcutaneous tissue. CARDIOVASCULAR: Regular rhythm and rate with normal heart sounds 1 and 2. RESPIRATORY: Fair air entry bilaterally with some transmitted breath sounds. Questionable crackles were noted, but there are no rhonchi or use of accessory muscles. GI: Morbidly obese, soft, nontender, and nondistended with normal bowel sounds. EXTREMITIES: Left BKA noted with healthy stump. Right lower extremity grossly normal with no edema or erythema. ENGINEERING MANAGER ELECTRONICS: Conscious, alert, and oriented x3 with appropriate mental status. Cranial nerves 2 through 12 are grossly intact. DIAGNOSTIC DATA: CBC on presentation on October 13, showed WBC count of 11.2, hemoglobin of 11.3, MCV of 92.7, platelet of 289. CMP on presentation on October 13, showed sodium 141, potassium 4.5, chloride 109, CO2 of 23, BUN 42, creatinine 3.63, glucose 215, calcium 8.3, total bilirubin 0.2, AST 10, ALT 12, alkaline phosphatase 99, total protein 6.5, albumin 3.0, globulin 3.5. Initial cardiac enzymes showed CK 116, troponin 0.27. There is no further CBC or renal function panel post admission. Chest x-ray on presentation on October 13, showed enlarged cardiac silhouette with no evidence of consolidation, mass, or pleural effusion. Degenerative changes in the spine were also noted. ASSESSMENT: 1. Renal failure: Most likely due to chronic kidney disease from diabetic nephropathy and hypertensive nephrosclerosis. NSAID induced nephropathy is another possibility. Acute component, however, cannot be ruled out. The patient, however, denied prior knowledge of chronic kidney disease. She, however, admitted to nephrolithiasis several years back and has had no further problem with stones. The patient also is on lisinopril. 2. Poorly controlled hypertension. Blood pressures have been between 160s and 180s. 3. Nephrolithiasis. 4. Poorly-controlled diabetes mellitus, complicated with peripheral artery disease and diabetic foot ulcer, status post amputation of left leg. 5. Dyslipidemia. 6. Morbid obesity. 7. Probable obstructive sleep apnea. PLAN: 1. We will get repeat renal function panel as well as urinalysis and urine electrolytes. 2. We will also get PTH as well as renal ultrasound. 3. We will start the patient on gentle IV fluid therapy. 4. We will discontinue lisinopril. 5. We will also renally dose gabapentin. The patient currently is getting 800 mg t.i.d. We will change this to 300 mg daily. 6. We will increase metoprolol from 100 daily to 100 b.i.d. 7. Agree with increase of amlodipine to 5 b.i.d. to get better BP control. We will reassess the patient in the morning with other diagnostic tests. Further treatment to follow depending on hospital course. The patient is clinically stable at this time, and there is no urgent need for cardiac catheterization. The patient is at increased risk of contrast-induced nephropathy should we proceed at this time without further evaluation of kidney function. Care plan was discussed with Cardiology. Job ID: [id number] GUTIERREZ
--- NOTE | 2019-10-15 18:55 | ULT ---
RENAL ULTRASOUND: 10/15/19 HISTORY: Acute renal insufficiency and chronic renal disease. Real time imaging of the right and left kidneys were performed. The right kidney measures 10.7 and th e left 10 cm in size. No signs of cysts, mass or obstruction. The bladder was empty at the time of th is study. IMPRESSION: Unremarkable renal ultrasound. POS: MATY
[2019-10-15 18:58] LABS: Bacteria/HPF None Seen HPF (None Seen); Bilirubin Negative (Negative); Blood, Urine 1+ (Negative); Clarity Clear (Clear); Glucose, Urine (Dipstick) 500 mg/dL (Negative); Leukocyte Negative Leu/uL (Negative); Nitrite Negative (Negative); Protein, Urine (Dipstick) 600 mg/dL (Neg-Trace); RBC/HPF 0-3 HPF (0-3); Squamous Epithelial 0-3 HPF (0-3); Urobilinogen Normal mg/dL (Less than 2); WBC/HPF 0-3 HPF (0-3)
[2019-10-15 19:00] LABS: Urine Culture Reflex No No
[2019-10-15 19:20] LABS: Creatinine, Urine 97.96 mg/dL (47-110)
[2019-10-15] MEDS: Insulin Glargine 80 UNITS in Pre-Filled Syringe 1 EACH SC SCH (20:56)
[2019-10-15] MEDS: Sodium Bicarbonate Tab 325 MG TAB PO SCH (20:59)
[2019-10-16] MEDS: traMADol HCl 50 MG TAB PO PRN ×3 (03:53→19:07)
[2019-10-16] MEDS: Ondansetron ODT 4 MG TAB PO PRN ×3 (03:53→19:07)
[2019-10-16 04:18] LABS: #Basophils 0.1 thou/uL (0.0-0.2); #Eosinphils 0.5 thou/uL (0.0-0.7); #Lymphocytes 3.4 thou/uL (1.20-3.40); #Monocytes 0.8 thou/uL (0.11-0.59); #Neutrophils 6.4 thou/uL (1.40-6.50); %Basophils 0.8 % (0.0-1.0); %Eosinophils 4.8 % (0.0-10.0); %Lymphocytes 30.5 % (21.0-51.0); %Monocytes 6.8 % (0.0-10.0); %Neutrophils 57.1 % (42.0-75.0); Hemoglobin 10.7 g/dL (12.0-16.0); Mean Corpuscular HGB CONC 30.9 g/dL (32.0-36.0); Mean Platelet Volume 7.9 fL (7.4-10.4); Platelet Count 269 thou/uL (130-400); RBC Distribution Width 13.2 % (11.5-14.5); White Blood Cell (WBC) Count 11.2 thou/uL (4.8-10.8)
[2019-10-16 04:39] LABS: Albumin 2.9 g/dL (3.5-5.0); Anion Gap 14 mmol/L (10-20); BUN (Urea Nitrogen) 50 mg/dL (7.0-18.7); Calc. Creatinine Clearance 41 mL/min (70-130); Calcium 8.5 mg/dL (7.8-10.44); Carbon Dioxide 21 mmol/L (22-29); Chloride 110 mmol/L (98-107); Estimated GFR-MDRD 13; Glucose 91 mg/dL (70-105); Phosphorus 5.3 mg/dL (2.3-4.7); Potassium 4.5 mmol/L (3.5-5.1); Sodium 140 mmol/L (136-145)
--- NOTE | 2019-10-16 07:45 | CON ---
DATE OF CONSULTATION: ADDENDUM: INDICATION FOR CONSULTATION: A 48-year-old female with diabetes, hypertension, hypercholesterolemia, and abnormal stress test with chest discomfort. HISTORY OF PRESENT ILLNESS: This is a very unfortunate 48-year-old female who has a history of diabetes for quite some time. She has not been on insulin, but had had had history of hypercholesterolemia and also hypertension. She noticed some chest discomfort with some stinging. She underwent stress testing, which actually showed some evidence of lateral wall ischemia. She has been advised for consultation. She has had no previous cardiac history that she is aware of. She did have a stress test in 2017 prior to undergoing amputation of her left lower extremity and this did not show any evidence of ischemia. At this time, her cardiac enzymes were indeterminate. She had one enzyme, which was negative and she had one that was slightly abnormal and another one was again normal, but given her presentation and her risk factors and abnormal stress test, she will be advised to undergo cardiac catheterization. PAST MEDICAL HISTORY: Please refer to the notes dictated by the Family Practice resident. PAST SURGICAL HISTORY: Please refer to the notes dictated by the Family Practice resident. MEDICATIONS: Please refer to the notes dictated by the Family Practice resident. ALLERGIES: PLEASE REFER TO THE NOTES DICTATED BY THE FAMILY PRACTICE RESIDENT. REVIEW OF SYSTEMS: Please refer to the notes dictated by the Family Practice resident. FAMILY HISTORY: Please refer to the notes dictated by the Family Practice resident. PHYSICAL EXAMINATION: GENERAL: Reveals a well-developed, well-nourished, obese female who is in no acute distress at this time. She is alert, she is oriented. VITAL SIGNS: Blood pressure is 154/78, she is afebrile, heart rate is in the 70s, shows a sinus rhythm, O2 saturation 96%, respiratory rate 16. HEENT: Shows the head to be normocephalic and atraumatic. Carotid pulses are present. There were no bruits. CHEST: Clear to auscultation without rales, rhonchi, or wheezing. CARDIOVASCULAR: Reveals a regular rate and rhythm. I cannot hear any significant murmurs, heaves, thrills, bruits, or rubs. ABDOMEN: Obese. I cannot palpate any tenderness or masses. EXTREMITIES: Show no clubbing or cyanosis. The right lower extremity is intact. She does have a left AKA on the left side and otherwise is unremarkable. NEUROLOGIC: She appears to be fully intact. She does have a prosthesis, which she wears on the left leg for ambulation. LABORATORY DATA: Shows a sodium of 141, potassium 4.5, chloride was 109, BUN is 42 with a creatinine of 3.63. Blood sugar was 215. Her hemoglobin A1c is 9.8. Troponin I as noted above was 0.027 on admission and then increased up to 0.086 and then back down to 0.020. Her BNP was 401. Her WBC is 11.2, hemoglobin 11.3, hematocrit 34.5, and platelet count was 289,000. IMAGING: Her EKG shows a sinus rhythm with a right bundle branch. IMPRESSION: 1. Middle-aged female with diabetes, hypertension, hypercholesterolemia, who has an abnormal stress test. Would need to undergo cardiac catheterization; however, she has stage IV renal insufficiency or kidney disease and I will ask the product management intern to visit with the patient prior to undergoing cardiac catheterization. She is stable at this time and denies any pain as such, but will need to undergo further evaluation. I discussed with her the possibility of complete renal failure should we use contrast material and we will make that decision after she discuss these issues with the product management intern. I will also stop her lisinopril that she has been on the past and she does have renal artery stenosis. This could be an area of worsening and this could have caused worsening of her renal insufficiency. 2. Diabetes, this will be dealt with by the primary care service. 3. Hypertension. We will need to address her medications. She has had blood pressures as high as 180/95 since being in the hospital. We will try to improve this with medications. Obviously, she is not a good candidate for angiotensin-converting enzyme inhibitors, but can certainly try beta blockers or amlodipine calcium blockers to decrease the blood pressure at this time. She also had an echocardiogram I believe performed today. If this was not performed, then we will request an echocardiogram prior to proceeding with cardiac catheterization. I do not see that one has been ordered and I will order an echocardiogram. Job ID: [id number]
[2019-10-16] MEDS ORDERED: Amlodipine 5 MG TAB PO SCH ×3 (09:00→11:45)
[2019-10-16] MEDS: Aspirin 325 mg Enteric Coated Tablet PO SCH (09:06)
[2019-10-16] MEDS: Metoprolol Tartrate 100 MG TAB PO SCH ×2 (09:07→19:57)
[2019-10-16] MEDS: Sodium Bicarbonate Tab 325 MG TAB PO SCH ×2 (09:07→19:57)
[2019-10-16] MEDS: DULoxetine 60 MG CAP PO SCH (09:07)
[2019-10-16] MEDS: Gabapentin 300 MG CAP PO SCH (09:07)
--- NOTE | 2019-10-16 09:46 | CON ---
DATE OF CONSULTATION: HISTORY OF PRESENT ILLNESS: Patient is a 48-year-old female who presented with atypical chest pain and Cardiology is now consulted for abnormal stress test results. She has a past medical history of hypertension, uncontrolled diabetes with resulting peripheral neuropathy, left BKA, and significant chronic kidney disease. She also has hyperlipidemia. She has no history of coronary artery disease. She had a stress test about two years ago that was normal. She reports symptoms began on Monday. She notes an electrical pain sensation in her chest associated with some shortness of breath. These periods would last for 2 to 3 minutes and then spontaneously resolve. Not exacerbated by exertion. Also, associated she would have right neck, shoulder, and arm heaviness. Stress test showed left lateral ventricle fixed myocardial perfusion defect consistent with myocardial infarct. Surrounding rim of reversible perfusion. She denies having any chest pain, shortness of breath, or palpitation at this time. She is resting comfortably. She denies ever seeing a development administrator and she has never established with a hand ii blocker either. PAST MEDICAL HISTORY: Type 2 diabetes, on insulin; hypertension; depression; hyperlipidemia; peripheral neuropathy; chronic kidney disease, stage 4; and fibromyalgia. ALLERGIES: CODEINE. SURGERIES: Cholecystectomy, appendectomy, two lumbar surgeries, left total knee replacement, left below-knee amputation, x3, and hysterectomy. FAMILY HISTORY: Significant family history of coronary artery disease. Mother had six stents and stroke with disease starting in her 50s. SOCIAL HISTORY: Denies alcohol or drug abuse. Quit smoking 22 years ago. Ten year total duration of smoking. REVIEW OF SYSTEMS: 12-point review of systems reviewed and negative apart from as noted above in HPI. She also reports some nausea. LABORATORY: Hemoglobin 11.3, hematocrit 34.5, and platelets 289. Creatinine 3.67 and glucose 177. EKG showed right bundle-branch block. PHYSICAL EXAMINATION: VITAL SIGNS: Blood pressure 154/78, temperature is 97.3, pulse 70, respirations 16, and saturating 96% on room air. HEENT: Normocephalic and atraumatic. Carotids are 2+ without any bruits heard. CHEST: Clear to auscultation. No wheezing, rales, or rhonchi. CARDIOVASCULAR: Regular rate and rhythm. Normal S1 and S2. No significant murmur. ABDOMEN: Soft, nontender. Bowel sounds present. EXTREMITIES: Left BKA. Right, pulses normal. No cyanosis or edema. IMPRESSION: Abnormal stress test. Patient needs to undergo a cardiac cath. This is difficult considering her significant chronic kidney disease. She is currently asymptomatic and troponins downtrended to normal. We will continue to monitor. Echocardiogram ordered. Nephrology was consulted for further management of kidney disease. Continue to follow patient and plan for cardiac catheterization in the coming days depending on her renal function. Job ID: [id number] [facility]
--- NOTE | 2019-10-16 10:38 | PDOC.HOSPP ---
- Subjective Encounter Date: 10/16/19 Encounter Time: 10:33 Subjective: no specific CO - Objective Vital Signs & Weight: Vital Signs (12 hours) Temp Pulse Resp BP Pulse Ox 10/16/19 09:06 63 10/16/19 08:05 97.6 F 63 18 152/80 H 96 10/16/19 08:00 96 10/16/19 05:39 96 10/16/19 03:47 98.1 F 65 20 151/74 H 96 Weight Weight 310 lb I&O: 10/15/19 10/16/19 10/17/19 06:59 06:59 06:59 Intake Total 1100 1600 240 Output Total 800 Balance 1100 800 240 Result Diagrams: 10/16/19 03:33 10/16/19 03:33 Additional Labs: Accuchecks 10/16/19 10/15/19 10/15/19 05:05 20:59 16:56 POC Glucose 102 220 H 191 H 10/15/19 10/15/19 15:09 11:09 POC Glucose 134 H 200 H Hospitalist ROS - Medication Medications: Active Medications Generic Name Dose Route Start Last Admin Trade Name Freq PRN Reason Stop Dose Admin Aspirin 325 mg 10/14/19 09:00 10/16/19 09:06 Ecotrin PO 325 mg DAILY PANCHO Administration Duloxetine HCl 60 mg 10/14/19 09:00 10/16/19 09:07 Cymbalta PO 60 mg DAILY PANCHO Administration Gabapentin 300 mg 10/16/19 09:00 10/16/19 09:07 Neurontin PO 300 mg DAILY PAN[facility] Administration Insulin Glargine 80 units/ 0.8 mls @ 0 mls/hr 10/14/19 21:00 10/15/19 20:56 Miscellaneous Medication SC 0.8 mls HS PANCHO Administration Insulin Human Lispro 0 units 10/14/19 08:37 10/14/19 17:50 Humalog SC 3 unit .MILD SLIDING SCALE PRN Administration Mild Correctional Scale Metoprolol Tartrate 100 mg 10/15/19 21:00 10/16/19 09:07 Lopressor PO 100 mg BID PANCHO Administration Ondansetron HCl 4 mg 10/14/19 12:31 10/16/19 03:53 Zofran Odt PO 4 mg Q6H PRN Administration Nausea/Vomiting Sodium Bicarbonate 650 mg 10/15/19 21:00 10/16/19 09:07 Bicarbonate, Sodium PO 650 mg BID PANCHO Administration Sodium Chloride 10 ml 10/14/19 09:00 10/16/19 09:07 Flush - Normal Saline IVF 10 ml Q12HR PANCHO Administration Tramadol HCl 50 mg 10/14/19 12:31 10/16/19 03:53 Ultram PO 50 mg Q6H PRN Administration Pain - Exam General Appearance: awake alert Neck: no JVD Heart: RRR, no murmur Respiratory: CTAB Gastrointestinal: soft, normal bowel sounds Extremities: no edema Extremities - other findings: L AKA Hosp A/P (1) Chest pain Code(s): R07.9 - CHEST PAIN, UNSPECIFIED Status: Acute Qualifiers: Chest pain type: precordial pain Qualified Code(s): R07.2 - Precordial pain (2) Diabetes mellitus type II, uncontrolled Code(s): E11.65 - TYPE 2 DIABETES MELLITUS WITH HYPERGLYCEMIA Status: Chronic (3) HTN (hypertension) Code(s): I10 - ESSENTIAL (PRIMARY) HYPERTENSION Status: Chronic Qualifiers: Hypertension type: essential hypertension Qualified Code(s): I10 - Essential (primary) hypertension (4) Hyperlipidemia Code(s): E78.5 - HYPERLIPIDEMIA, UNSPECIFIED Status: Chronic Qualifiers: Hyperlipidemia type: unspecified Qualified Code(s): E78.5 - Hyperlipidemia , unspecified (5) Anxiety and depression Code(s): F41.8 - OTHER SPECIFIED ANXIETY DISORDERS Status: Chronic - Plan needs cardiac cath, marked renal compromise holding GADIEL, gentle hydration, monitoer BMP cont APT, etc
--- NOTE | 2019-10-16 12:40 | PDOC.CPN ---
- Subjective Date: 10/16/19 Time: 12:42 Interval history: The pt seen and examined. No overnight events. No cardiac complaints. - Objective Allergies/Adverse Reactions: Allergies Allergy/AdvReac Type Severity Reaction Status Date / Time codeine AdvReac Verified 06/05/17 03:31 Visit Medications: Current Medications Amlodipine Besylate (Norvasc) 10 mg PO DAILY [facility] Amlodipine Besylate (Norvasc) 5 mg PO NOW [facility] Stop: 10/16/19 13:45 Last Admin: 10/16/19 12:09 Dose: 5 mg Aspirin (Ecotrin) 325 mg PO DAILY [facility] Last Admin: 10/16/19 09:06 Dose: 325 mg Dextrose/Water (Dextrose 50%) 25 gm SLOW IVP PRN PRN PRN Reason: Hypoglycemia Duloxetine HCl (Cymbalta) 60 mg PO DAILY [facility] Last Admin: 10/16/19 09:07 Dose: 60 mg Gabapentin (Neurontin) 300 mg PO DAILY [facility] Last Admin: 10/16/19 09:07 Dose: 300 mg Glucagon (Glucagon) 1 mg IM PRN PRN PRN Reason: Hypoglycemia Dextrose/Water (D5w) 1,000 mls @ 0 mls/hr IV .Q0M PRN PRN Reason: Hypoglycemia Insulin Glargine 80 units/ (Miscellaneous Medication) 0.8 mls @ 0 mls/hr SC [facility] Last Admin: 10/15/19 20:56 Dose: 0.8 mls Sodium Bicarbonate 50 meq/ (Sodium Chloride) 1,050 mls @ 100 mls/hr IV INF [facility] Insulin Human Lispro (Humalog) 0 units SC .MILD SLIDING SCALE PRN PRN Reason: Mild Correctional Scale Last Admin: 10/14/19 17:50 Dose: 3 unit Metoprolol Tartrate (Lopressor) 100 mg PO BID [facility] Last Admin: 10/16/19 09:07 Dose: 100 mg Ondansetron HCl (Zofran Odt) 4 mg PO Q6H PRN PRN Reason: Nausea/Vomiting Last Admin: 10/16/19 12:12 Dose: 4 mg Liraglutide [Victoza (2-Ricardo] 0.6 Mg) 0 each SC DAILY [facility] Sodium Bicarbonate (Bicarbonate, Sodium) 650 mg PO BID [facility] Last Admin: 10/16/19 09:07 Dose: 650 mg Sodium Chloride (Flush - Normal Saline) 10 ml IVF Q12HR [facility] Last Admin: 10/16/19 09:07 Dose: 10 ml Tramadol HCl (Ultram) 50 mg PO Q6H PRN PRN Reason: Pain Last Admin: 10/16/19 12:12 Dose: 50 mg Vital Signs & Weight: Vital Signs Temp Pulse Resp BP Pulse Ox 10/16/19 12:10 64 10/16/19 12:09 64 10/16/19 11:13 97.5 F L 64 14 136/72 97 10/16/19 09:06 63 10/16/19 08:05 97.6 F 63 18 152/80 H 96 10/16/19 08:00 96 10/16/19 05:39 96 10/16/19 03:47 98.1 F 65 20 151/74 H 96 Weight 310 lb - Physical Exam General: alert & oriented x3 HEENT: mucus membranes moist Neck: supple neck Cardiac: regular rate and rhythm, S1/S2 Lungs: decreased breath sounds Neuro: cranial nerve 2-12 intact Extremities: no edema, other: (Lt BKA) - Labs Result Diagrams: 10/16/19 03:33 10/16/19 03:33 Troponin/CKMB Troponin I 0.020 ng/mL (< 0.028) 10/13/19 22:56 - Telemetry Sinus rhythms and dysrhythmias: sinus rhythm - Assessment/Plan Assessment/Plan: 1. Abn. Stress test - cath is on hold due to KAY on CKD; on NS; the pt is asymptomatic; On bblocker and ASA; may start Statin; cont. to monitor on tele 2. KAY on CKD - on IV NS; managed by Dr Hernandez 3. HTN - stable with current med 4. Insulin-dependent DM - managed by PCP 5. depression - 6. Anemia - unchanged 7. Sleep Apnea - the pt stated she will have Sleep study as outpt once she has insurance from November. NOV reviewed Pt. seen and eval. by me. I agree with the A/P by the CONTINUITY READER. Appreciate input from renal. If the renal function remains stable, consider cardiac cath on Monday. Chest clear. RRR. No edema. gjm
[2019-10-16] MEDS: Sodium Bicarbonate 50 MEQ in Sodium Chloride 0.45% 1,000 ML IV SCH ×2 (12:54→22:30)
--- NOTE | 2019-10-16 17:46 | PRG ---
DATE OF SERVICE: 10/16/2019 SERVICE: Nephrology. SUBJECTIVE: Morbidly obese female with complicated diabetes, status post left BKA, seen in followup for renal insufficiency. The patient was admitted due to chest pain and was found to have abnormal stress test, and cardiac catheterization is contemplated, but held due to advanced renal insufficiency. The patient denied any new problem. Denied shortness of breath or leg swelling. She also denied nausea, vomiting, or change in bowel habit. OBJECTIVE: VITAL SIGNS: Temperature 98.1, pulse 65, respiratory rate 20, SpO2 of 96% on room air, and blood pressure is 151/74. GENERAL: Obese female, in no distress. Afebrile. Anicteric. Acyanotic. HEENT: Normocephalic, atraumatic. Oral mucosa is moist. CARDIOVASCULAR: Regular rhythm and rate. Normal heart sounds one and two. RESPIRATORY: Fair air entry bilaterally with no obvious crackle or rhonchi or use of accessory muscles. GI: Obese, soft, nontender, nondistended with normal bowel sounds. EXTREMITIES: Left BKA noted. Right lower extremity otherwise grossly normal with no edema or erythema. SEAL MIXER: Conscious, alert, oriented x3 with appropriate mental status. Cranial nerves 2 through 12 are grossly intact. DIAGNOSTIC DATA: CBC showed WBC count of 11.2, hemoglobin of 10.7, and platelets of 269. Renal function panel showed sodium 140, potassium 4.5, chloride 110, CO2 of 21, BUN 50, creatinine 3.73, glucose 91, calcium 8.5, phosphorus 5.3, and albumin 2.9. Urinalysis performed yesterday on October 15 showed light yellow clear urine with pH of 6.0, specific gravity of 1.019, urine protein of 600 mg/dL, glucose of 500 mg/dL. Negative ketone, 1+ blood. Negative nitrite, bilirubin, and leukocyte esterase. Microscopy showed 0 to 3 rbc, 0 to 3 wbc with no bacteria. Urine electrolytes showed urine random protein of 1038, urine creatinine of 97.96 with urine protein-creatinine ratio of about 10 g/g of creatinine. Urine sodium is 74. ASSESSMENT: 1. Renal failure of unclear acuity. Hemodynamic and reversible component is a concern here. The patient, however, reported chronic use of NSAIDs and has longstanding diabetes, which is complicated. Most likely, we have acute kidney injury superimposed on chronic kidney disease or may well be just chronic kidney disease that is stable. We will continue to hold RAAS michelle. We will also increase IV fluid from 50 mL/h to 100 mL/h and recheck renal function in the morning. Renal ultrasound showed good-sized kidneys with no obstructive process. 2. Metabolic acidosis: We will continue alkali therapy. 3. Hypertension: Control is suboptimal. We will increase the amlodipine to 10 mg daily. We will also continue metoprolol. We will avoid nephrotoxic agents. 4. History of nephrolithiasis. 5. Morbid obesity. 6. Probable obstructive sleep apnea. 7. We will recheck renal function in the morning. Nephritic range proteinuria. We get 24-hour urine collection to adequately quantity urine protein. This seems to be related to diabetic nephropathy. Further treatment to follow depending on hospital course. Job ID: [id number]
[2019-10-16] MEDS: Insulin Glargine 80 UNITS in Pre-Filled Syringe 1 EACH SC SCH (21:06)
[2019-10-17] MEDS: traMADol HCl 50 MG TAB PO PRN ×4 (01:12→21:48)
[2019-10-17] MEDS: Ondansetron ODT 4 MG TAB PO PRN ×4 (01:13→21:48)
[2019-10-17 04:41] LABS: Albumin 3.1 g/dL (3.5-5.0); Anion Gap 10 mmol/L (10-20); BUN (Urea Nitrogen) 52 mg/dL (7.0-18.7); BUN/Creatinine Ratio 13.76; Calc. Creatinine Clearance 40 mL/min (70-130); Calcium 8.5 mg/dL (7.8-10.44); Carbon Dioxide 28 mmol/L (22-29); Chloride 106 mmol/L (98-107); Estimated GFR-MDRD 13; Glucose 87 mg/dL (70-105); Phosphorus 4.9 mg/dL (2.3-4.7); Potassium 4.4 mmol/L (3.5-5.1); Sodium 140 mmol/L (136-145)
--- NOTE | 2019-10-17 08:46 | PDOC.CPN ---
- Subjective Date: 10/17/19 Time: 08:48 Interval history: The pt seen and examined. No overnight events. No cardiac complaints. - Objective Allergies/Adverse Reactions: Allergies Allergy/AdvReac Type Severity Reaction Status Date / Time codeine AdvReac Verified 06/05/17 03:31 Visit Medications: Current Medications Amlodipine Besylate (Norvasc) 10 mg PO DAILY [facility] Aspirin (Ecotrin) 325 mg PO DAILY [facility] Last Admin: 10/16/19 09:06 Dose: 325 mg Dextrose/Water (Dextrose 50%) 25 gm SLOW IVP PRN PRN PRN Reason: Hypoglycemia Duloxetine HCl (Cymbalta) 60 mg PO DAILY [facility] Last Admin: 10/16/19 09:07 Dose: 60 mg Gabapentin (Neurontin) 300 mg PO DAILY [facility] Last Admin: 10/16/19 09:07 Dose: 300 mg Glucagon (Glucagon) 1 mg IM PRN PRN PRN Reason: Hypoglycemia Dextrose/Water (D5w) 1,000 mls @ 0 mls/hr IV .Q0M PRN PRN Reason: Hypoglycemia Insulin Glargine 80 units/ (Miscellaneous Medication) 0.8 mls @ 0 mls/hr SC HS [facility] Last Admin: 10/16/19 21:06 Dose: 0.8 mls Sodium Bicarbonate 50 meq/ (Sodium Chloride) 1,050 mls @ 100 mls/hr IV INF [facility] Last Admin: 10/16/19 22:30 Dose: 1,050 mls Insulin Human Lispro (Humalog) 0 units SC .MILD SLIDING SCALE PRN PRN Reason: Mild Correctional Scale Last Admin: 10/14/19 17:50 Dose: 3 unit Metoprolol Tartrate (Lopressor) 100 mg PO BID [facility] Last Admin: 10/16/19 19:57 Dose: 100 mg Ondansetron HCl (Zofran Odt) 4 mg PO Q6H PRN PRN Reason: Nausea/Vomiting Last Admin: 10/17/19 01:13 Dose: 4 mg Liraglutide [Victoza (2-Ricardo] 0.6 Mg) 0 each SC DAILY [facility] Sodium Bicarbonate (Bicarbonate, Sodium) 650 mg PO BID [facility] Last Admin: 10/16/19 19:57 Dose: 650 mg Sodium Chloride (Flush - Normal Saline) 10 ml IVF Q12HR [facility] Last Admin: 01/29/20 19:58 Dose: 10 ml Tramadol HCl (Ultram) 50 mg PO Q6H PRN PRN Reason: Pain Last Admin: 10/17/19 01:12 Dose: 50 mg Vital Signs & Weight: Vital Signs Temp Pulse Resp BP Pulse Ox 10/17/19 08:01 95 10/17/19 03:12 97.5 F L 63 18 155/81 H 95 Weight 310 lb - Physical Exam General: alert & oriented x3 HEENT: mucus membranes moist Neck: supple neck Cardiac: regular rate and rhythm, S1/S2 Lungs: clear to auscultation, decreased breath sounds Neuro: cranial nerve 2-12 intact Extremities: no edema, other: (Lt BKA) - Labs Result Diagrams: 10/16/19 03:33 10/17/19 03:54 Troponin/CKMB Troponin I 0.020 ng/mL (< 0.028) 10/13/19 22:56 - Telemetry Sinus rhythms and dysrhythmias: sinus rhythm - Assessment/Plan Assessment/Plan: 1. Abn. Stress test - cath is on hold due to KAY on CKD; on 09/19 NS @ 100ml/h; the pt is asymptomatic; On bblocker and ASA; may start Statin; cont. to monitor on tele; If the renal function remains stable, consider cardiac cath on Monday 2. KAY on CKD - on IV NS; managed by Dr Hernandez (Appreciate Dr Hernandez's input!) 3. HTN - will start Isosorbide 10mg BID from this AM 4. Insulin-dependent DM - managed by PCP 5. depression - 6. Anemia - unchanged 7. Sleep Apnea - the pt stated she will have Sleep study as outpt once she has insurance from November. NOV reviewed pt. seen and eval. I agree with the A/P by the GOLD LEAF LAYER Chest clear. RRR. I discussed the cardiac cath with her and the possibility of worsening renal function, she understands and agrees to proceed.
[2019-10-17] MEDS: Aspirin 325 mg Enteric Coated Tablet PO SCH (08:49)
[2019-10-17] MEDS: Gabapentin 300 MG CAP PO SCH (08:49)
[2019-10-17] MEDS: Amlodipine 5 MG TAB PO SCH (08:49)
[2019-10-17] MEDS: Metoprolol Tartrate 100 MG TAB PO SCH ×2 (08:49→20:59)
[2019-10-17] MEDS: DULoxetine 60 MG CAP PO SCH (08:52)
--- NOTE | 2019-10-17 09:37 | PDOC.HOSPP ---
- Subjective Encounter Date: 10/17/19 Encounter Time: 09:36 Subjective: no sob, chest pain - Objective Vital Signs & Weight: Vital Signs (12 hours) Temp Pulse Resp BP BP Pulse Ox 10/17/19 08:49 63 145/65 H 10/17/19 08:48 97.9 F 63 16 145/65 H 97 10/17/19 08:01 95 10/17/19 03:12 97.5 F L 63 18 155/81 H 95 Weight Weight 310 lb I&O: 10/16/19 10/17/19 10/18/19 06:59 06:59 06:59 Intake Total 1600 1020 Output Total 800 800 Balance 800 220 Result Diagrams: 10/16/19 03:33 10/17/19 03:54 Additional Labs: Accuchecks 10/17/19 10/16/19 10/16/19 05:53 20:37 16:32 POC Glucose 148 H 163 H 144 H 10/16/19 10:53 POC Glucose 108 Hospitalist ROS - Medication Medications: Active Medications Generic Name Dose Route Start Last Admin Trade Name Freq PRN Reason Stop Dose Admin Amlodipine Besylate 10 mg 10/17/19 09:00 10/17/19 08:49 Norvasc PO 10 mg DAILY [facility] Administration Aspirin 325 mg 10/14/19 09:00 10/17/19 08:49 Ecotrin PO 325 mg DAILY [facility] Administration Duloxetine HCl 60 mg 10/14/19 09:00 10/17/19 08:52 Cymbalta PO 60 mg DAILY [facility] Administration Gabapentin 300 mg 10/16/19 09:00 10/17/19 08:49 Neurontin PO 300 mg DAILY [facility] Administration Insulin Glargine 80 units/ 0.8 mls @ 0 mls/hr 10/14/19 21:00 10/16/19 21:06 Miscellaneous Medication SC 0.8 mls HS [facility] Administration Sodium Bicarbonate 50 meq/ 1,050 mls @ 100 mls/hr 10/16/19 06:32 10/16/19 22: 30 Sodium Chloride IV 1,050 mls INF [facility] Administration Insulin Human Lispro 0 units 10/14/19 08:37 10/14/19 17:50 Humalog SC 3 unit .MILD SLIDING SCALE PRN Administration Mild Correctional Scale Metoprolol Tartrate 100 mg 10/15/19 21:00 10/17/19 08:49 Lopressor PO 100 mg BID [facility] Administration Ondansetron HCl 4 mg 10/14/19 12:31 10/17/19 08:50 Zofran Odt PO 4 mg Q6H PRN Administration Nausea/Vomiting Sodium Bicarbonate 650 mg 10/15/19 21:00 10/16/19 19:57 Bicarbonate, Sodium PO 650 mg BID [facility] Administration Sodium Chloride 10 ml 10/14/19 09:00 10/17/19 08:52 Flush - Normal Saline IVF 10 ml Q12HR [facility] Administration Tramadol HCl 50 mg 10/14/19 12:31 10/17/19 08:50 Ultram PO 50 mg Q6H PRN Administration Pain - Exam General Appearance: awake alert Neck: no JVD Heart: RRR, no murmur Respiratory: CTAB, no wheezes Gastrointestinal: soft, normal bowel sounds Extremities: no edema Hosp A/P (1) Chest pain Code(s): R07.9 - CHEST PAIN, UNSPECIFIED Status: Acute Qualifiers: Chest pain type: precordial pain Qualified Code(s): R07.2 - Precordial pain (2) Diabetes mellitus type II, uncontrolled Code(s): E11.65 - TYPE 2 DIABETES MELLITUS WITH HYPERGLYCEMIA Status: Chronic (3) HTN (hypertension) Code(s): I10 - ESSENTIAL (PRIMARY) HYPERTENSION Status: Chronic Qualifiers: Hypertension type: essential hypertension Qualified Code(s): I10 - Essential (primary) hypertension (4) Hyperlipidemia Code(s): E78.5 - HYPERLIPIDEMIA, UNSPECIFIED Status: Chronic Qualifiers: Hyperlipidemia type: unspecified Qualified Code(s): E78.5 - Hyperlipidemia , unspecified (5) Anxiety and depression Code(s): F41.8 - OTHER SPECIFIED ANXIETY DISORDERS Status: Chronic - Plan needs cardiac cath, marked renal compromise holding GADIEL, gentle hydration, monitoer BMP cont APT, etc
[2019-10-17] MEDS: Isosorbide Dinitrate 20 MG TAB PO SCH ×2 (10:15→20:58)
[2019-10-17] MEDS: Sodium Bicarbonate 50 MEQ in Sodium Chloride 0.45% 1,000 ML IV SCH ×2 (10:17→20:57)
[2019-10-17] MEDS: Sodium Bicarbonate Tab 325 MG TAB PO SCH ×2 (11:58→20:58)
[2019-10-17] MEDS ORDERED: Acetylcysteine 20% 200 MG/ML 30 ML VIAL PO SCH (12:15)
--- NOTE | 2019-10-17 16:02 | PRG ---
DATE OF SERVICE: 10/17/2019 SERVICE: Nephrology. SUBJECTIVE: A 48-year-old obese female with known history of hypertension, diabetes complicated with diabetic foot ulcer status post left AKA, admitted with recurrent chest pain. Nephrology has seen the patient for elevated creatinine. The patient with an abnormal stress test. Needs further evaluation with cardiac catheterization as recommended by Cardiology. This however was put off due to renal insufficiency. The patient denied nausea, vomiting, abdominal pain, or leg edema. OBJECTIVE: VITAL SIGNS: Temperature 97.9, pulse 63, respiratory rate 16, SpO2 of 97% on room air, and blood pressure is 145/65. GENERAL: Obese female, in no distress. Afebrile. Anicteric. Acyanotic. HEENT: Normocephalic, atraumatic. Oral mucosa is moist. CARDIOVASCULAR: Regular rhythm and rate with normal heart sounds one and two. RESPIRATORY: Good air entry bilaterally with no obvious crackle or rhonchi or use of accessory muscles. GI: Obese, soft, nontender, nondistended with normal bowel sounds. EXTREMITIES: Left BKA noted. Prosthesis is in place. Right lower extremity is grossly normal looking atraumatic with no edema or erythema. CAMP HOUSEKEEPER: Conscious and alert and oriented x3 with appropriate mental status. Cranial nerves 2 through 12 are grossly intact. DIAGNOSTIC DATA: Renal function panel showed sodium 140, potassium 4.4, chloride 106, CO2 of 28, BUN 52, creatinine 3.78, glucose 87, calcium 8.5, phosphorus 4.9, albumin 3.1. Creatinine has been stable since admission despite IV fluid therapy and discontinuation of RAAS michelle. Creatinine actually trended up to 3.78 from admission level of 3.63. BUN also seems to be trending up to 52 today from admission level of 42. ASSESSMENT: 1. Renal failure: Acuity remained unclear. Creatinine is fairly stable with marginal increase since admission. of lisinopril and commencement of IV fluid therapy. Etiology is unclear, but seems to be related to diabetic nephropathy given associated nephrotic range proteinuria. The patient also reported regular NSAID use which was stopped about few months ago. 2. Presumed chronic kidney disease of unclear stage. 3. Presumed diabetic nephropathy. 4. Hypertension: Control is better. 5. Acute coronary syndrome: The patient with chest pain and abnormal stress test and cardiac catheterization is recommended by Cardiology. 6. Morbid obesity. 7. Type 2 diabetes mellitus. PLAN/RECOMMENDATION: 1. I discussed abnormal creatinine, which seems to be marginally increasing despite IV fluid therapy. As well as increased risk for contrast-induced nephropathy, for which I put the patient on hemodialysis should cardiac catheterization be done. However, there is no clear chart here. The patient has abnormal stress test and is at increased risk of having a massive cardiac attack. On the other hand, catheterization which put the patient to end-stage renal disease for which she will be requiring hemodialysis. These options are weighed and discussed with patient, who after the consultation and consideration decided to proceed with cardiac catheterization, even with the risk of contrast induced nephropathy, which we put her to hemodialysis. back of her mind massive heart attack, which could happen. At this point, we will start the patient on Mucinex and acetylcysteine as well as continue IV fluid therapy. I also discussed with Cardiology who plan to proceed with cardiac catheterization in the morning. We will recheck renal function in the morning. 2. We will continue current antihypertensives. Diabetic management as per primary attending. Job ID: [id number]
[2019-10-17] MEDS: Insulin Glargine 80 UNITS in Pre-Filled Syringe 1 EACH SC SCH (21:00)
[2019-10-17] MEDS: Acetylcysteine 20% 200 MG/ML 30 ML VIAL PO SCH (21:02)
[2019-10-18] MEDS: traMADol HCl 50 MG TAB PO PRN ×3 (02:48→15:55)
[2019-10-18] MEDS: Ondansetron ODT 4 MG TAB PO PRN ×4 (02:50→21:43)
[2019-10-18 05:12] LABS: Albumin 3.2 g/dL (3.5-5.0); Anion Gap 12 mmol/L (10-20); BUN (Urea Nitrogen) 50 mg/dL (7.0-18.7); BUN/Creatinine Ratio 14.62; Calc. Creatinine Clearance 45 mL/min (70-130); Calcium 8.6 mg/dL (7.8-10.44); Carbon Dioxide 25 mmol/L (22-29); Chloride 107 mmol/L (98-107); Estimated GFR-MDRD 14; Phosphorus 4.7 mg/dL (2.3-4.7); Potassium 4.2 mmol/L (3.5-5.1); Sodium 140 mmol/L (136-145)
[2019-10-18 05:15] LABS: Glucose 59 mg/dL (70-105)
[2019-10-18] MEDS ORDERED: Dextrose 50 % In Water 50 ML SYRINGE ONE (05:18)
[2019-10-18] MEDS: Amlodipine 5 MG TAB PO SCH (06:02)
[2019-10-18] MEDS: Sodium Bicarbonate Tab 325 MG TAB PO SCH ×2 (06:02→20:55)
[2019-10-18] MEDS: Isosorbide Dinitrate 20 MG TAB PO SCH ×2 (06:02→20:55)
[2019-10-18] MEDS: Acetylcysteine 20% 200 MG/ML 30 ML VIAL PO SCH ×2 (06:02→20:54)
[2019-10-18] MEDS: Metoprolol Tartrate 100 MG TAB PO SCH ×2 (06:03→20:55)
[2019-10-18] MEDS: Sodium Bicarbonate 50 MEQ in Sodium Chloride 0.45% 1,000 ML IV SCH ×3 (06:09→20:53)
[2019-10-18] MEDS ORDERED: Dextrose 5% in Water 1,000 ML IV SCH (06:30)
[2019-10-18] MEDS ORDERED: Communication Order-Pharmacy FS SCH (07:30)
--- NOTE | 2019-10-18 07:34 | PRG ---
DATE OF SERVICE: 10/18/2019 SERVICE: Nephrology. SUBJECTIVE: A 48-year-old obese female seen in followup for elevated creatinine. The patient was admitted due to chest pain and found to have abnormal stress test requiring cardiac catheterization. She also was found to have elevated creatinine. Following discussion with the patient about risk of cardiac catheterization leading to acute contrast-induced nephropathy as well as avoiding cardiac catheterization and proceeding with medical management. The patient elected to proceed with cardiac catheterization. Knowing full well that it could lead to end-stage renal disease because her rationale is that she will prefer to be on dialysis than to leave thinking she will at any moment from now, from massive cardiac arrest or attack. No new problem. Denied shortness of breath, dizziness, or headache. OBJECTIVE: VITAL SIGNS: Temperature 97.6, pulse 68, respiratory rate 16, SpO2 of 96% on room air, and blood pressure is 141/71. GENERAL: Obese female, in no distress. Afebrile. Anicteric. Acyanotic. HEENT: Normocephalic, atraumatic. Oral mucosa is moist. CARDIOVASCULAR: Regular rhythm and rate with normal heart sounds 1 and 2. RESPIRATORY: Fair air entry bilaterally with few bibasilar crackles. No rhonchi or use of accessory muscles was appreciated. GASTROINTESTINAL: Full, soft, nontender, and nondistended with normal bowel sounds. EXTREMITIES: Left AKA noted. Right lower extremity is grossly unremarkable with no edema. CENTRAL NERVOUS SYSTEM: Conscious and alert and oriented x3 with appropriate mental status. DIAGNOSTIC DATA: Renal panel today showed sodium 140, potassium 4.2, chloride 107, CO2 of 25, BUN 50, creatinine 3.42, glucose 59, calcium 8.5, phosphorus 4.7, and albumin 3.2. Note that, creatinine is down from peak of 3.78 to 3.42 and BUN also is down from peak of 52 to 50. ASSESSMENT: 1. Chronic kidney disease with possible reversible component. The patient was on lisinopril, which has been discontinued. The patient also admitted to chronic NSAID use previously, which may have caused NSAID-induced nephropathy. The patient also has longstanding diabetes complicated with diabetic foot ulcer requiring amputation of the left leg, making diabetic nephropathy likely. 2. Chest pain with abnormal nuclear stress test for cardiac catheterization today. 3. Hypertension: Control is better. 4. Hypoglycemia: The patient is currently n.p.o. and received Lantus 80 units last night. 5. She denied diaphoresis, dizziness, or weakness. 6. Metabolic acidosis, improved. 7. Morbid obesity. PLAN: 1. We will continue contrast-induced nephropathy prophylaxis with acetylcysteine and IV fluid therapy. 2. We will start the patient on D5 water due to hypoglycemia while the patient is n.p.o. 3. We will continue to monitor renal function and electrolytes. Further treatment to follow depending on hospital course. Job ID: [id number]
[2019-10-18] MEDS: Gabapentin 300 MG CAP PO SCH (08:15)
[2019-10-18] MEDS: Aspirin 325 mg Enteric Coated Tablet PO SCH (08:15)
[2019-10-18] MEDS: DULoxetine 60 MG CAP PO SCH (08:15)
--- NOTE | 2019-10-18 08:46 | PDOC.CPN ---
- Subjective Date: 10/18/19 Time: 08:47 Interval history: The pt seen and examined. No overnight events. No cardiac complaints. - Objective Allergies/Adverse Reactions: Allergies Allergy/AdvReac Type Severity Reaction Status Date / Time codeine AdvReac Verified 06/05/17 03:31 Visit Medications: Current Medications Acetylcysteine (Mucomyst 20%) 600 mg PO BID [facility] Stop: 10/18/19 21:01 Last Admin: 10/18/19 06:02 Dose: 600 mg Amlodipine Besylate (Norvasc) 10 mg PO DAILY [facility] Last Admin: 10/18/19 06:02 Dose: 10 mg Aspirin (Ecotrin) 325 mg PO DAILY [facility] Last Admin: 10/18/19 08:15 Dose: 325 mg Dextrose/Water (Dextrose 50%) 25 gm SLOW IVP PRN PRN PRN Reason: Hypoglycemia Duloxetine HCl (Cymbalta) 60 mg PO DAILY [facility] Last Admin: 10/18/19 08:15 Dose: 60 mg Gabapentin (Neurontin) 300 mg PO DAILY [facility] Last Admin: 10/18/19 08:15 Dose: 300 mg Glucagon (Glucagon) 1 mg IM PRN PRN PRN Reason: Hypoglycemia Dextrose/Water (D5w) 1,000 mls @ 0 mls/hr IV .Q0M PRN PRN Reason: Hypoglycemia Insulin Glargine 80 units/ (Miscellaneous Medication) 0.8 mls @ 0 mls/hr SC HS [facility] Last Admin: 10/17/19 21:00 Dose: 0.8 mls Sodium Bicarbonate 50 meq/ (Sodium Chloride) 1,050 mls @ 100 mls/hr IV INF [facility] Last Admin: 10/18/19 08:14 Dose: 1,050 mls Dextrose/Water (D5w) 1,000 mls @ 50 mls/hr IV .Q20H [facility] Last Admin: 10/18/19 07:27 Dose: 1,000 mls Insulin Human Lispro (Humalog) 0 units SC .MILD SLIDING SCALE PRN PRN Reason: Mild Correctional Scale Last Admin: 10/14/19 17:50 Dose: 3 unit Isosorbide Dinitrate (Isordil) 10 mg PO BID [facility] Last Admin: 10/18/19 06:02 Dose: 10 mg Metoprolol Tartrate (Lopressor) 100 mg PO BID [facility] Last Admin: 10/18/19 06:03 Dose: 100 mg Miscellaneous Information (Communication Order-Pharmacy) 0 each FS ONE [facility] Stop: 10/18/19 21:00 Ondansetron HCl (Zofran Odt) 4 mg PO Q6H PRN PRN Reason: Nausea/Vomiting Last Admin: 10/18/19 08:15 Dose: 4 mg Liraglutide [Victoza (2-Ricardo] 0.6 Mg) 0 each SC DAILY [facility] Sodium Bicarbonate (Bicarbonate, Sodium) 650 mg PO BID [facility] Last Admin: 10/18/19 06:02 Dose: 650 mg Sodium Chloride (Flush - Normal Saline) 10 ml IVF Q12HR [facility] Last Admin: 10/18/19 08:16 Dose: 10 ml Tramadol HCl (Ultram) 50 mg PO Q6H PRN PRN Reason: Pain Last Admin: 10/18/19 08:15 Dose: 50 mg Vital Signs & Weight: Vital Signs Temp Pulse Resp BP Pulse Ox 10/18/19 07:39 97.8 F 60 17 131/63 95 10/18/19 06:23 96 10/18/19 04:00 97.6 F 68 16 141/71 H 96 10/17/19 23:34 64 151/75 H Weight 310 lb - Physical Exam General: alert & oriented x3 HEENT: mucus membranes moist Neck: supple neck Cardiac: S1/S2 Lungs: clear to auscultation, decreased breath sounds Neuro: cranial nerve 2-12 intact Extremities: no edema - Labs Result Diagrams: 10/16/19 03:33 10/18/19 04:06 Troponin/CKMB Troponin I 0.020 ng/mL (< 0.028) 10/13/19 22:56 - Telemetry Sinus rhythms and dysrhythmias: sinus rhythm - Assessment/Plan Assessment/Plan: 1. Abn. Stress test - possible cath this afternoon by Dr Schroeder 2. KAY on CKD - on IV NS/D5; managed by Dr Henrandez (Appreciate Dr Hernandez's input!) 3. HTN - stable with current meds 4. Insulin-dependent DM - on D5 @ 50ml/h; managed by PCP 5. depression - 6. Anemia - unchanged 7. Sleep Apnea - the pt stated she will have Sleep study as outpt once she has insurance from November. NOV reviewed Pt. seen and eval. by me. I agree with the A/P by the OPHTHALMIC TECHNICIAN APPRENTICE. chest clear. RRR. No edema.
[2019-10-18 09:10] LABS: Urine Total Volume 1750 mL (600-1600)
[2019-10-18 09:30] LABS: 24 Hr Creatinine 1175.48 mg/24 hr (710-1650); Creatinine, Urine 67.17 mg/dL (47-110)
[2019-10-18 09:57] LABS: Protein - 24 Hr 9555 mg/24 hr (Less than 300); Protein, Urine 546 mg/dL (1-14)
[2019-10-18] MEDS ORDERED: Lidocaine 1% (PF) 30 ML VIAL ONE (13:05)
[2019-10-18] MEDS ORDERED: Heparin (Artline) 1,000 ML ONE (13:05)
[2019-10-18] MEDS ORDERED: Iopamidol 370 76% 100 ML VIAL ONE (13:24)
[2019-10-18] MEDS ORDERED: Nitroglycerin 100MG/250ML BOT 250 ML ONE (13:38)
[2019-10-18] MEDS ORDERED: Heparin 10,000 UNITS/1 ML VIAL ONE (13:38)
[2019-10-18] MEDS ORDERED: Verapamil 5 MG/2 ML VIAL ONE (13:38)
--- NOTE | 2019-10-18 14:31 | PDOC.HOSPP ---
- Subjective Encounter Date: 10/18/19 Encounter Time: 10:00 Subjective: Pt seen for followup re: chest pain. Awaiting cath, no current chest pain. - Objective Vital Signs & Weight: Vital Signs (12 hours) Temp Pulse Resp BP Pulse Ox 10/18/19 12:00 97.8 F 64 15 140/77 95 10/18/19 07:39 97.8 F 60 17 131/63 95 10/18/19 06:23 96 10/18/19 04:00 97.6 F 68 16 141/71 H 96 Weight Weight 310 lb I&O: 10/17/19 10/18/19 10/19/19 06:59 06:59 06:59 Intake Total 1020 Output Total 800 Balance 220 Result Diagrams: 10/16/19 03:33 10/18/19 04:06 Additional Labs: Accuchecks 10/18/19 10/18/19 10/17/19 10:41 06:16 20:54 POC Glucose 121 H 109 179 H 10/17/19 17:15 POC Glucose 119 H labs and MARs reviewed by me EKG Reviewed by me: Yes (Tele: NSR) Hospitalist ROS - Review of Systems Cardiovascular: denies: chest pain, palpitations, orthopnea, paroxysmal noc. dyspnea, edema, light headedness Gastrointestinal: denies: nausea, vomiting, abdominal pain, diarrhea, constipation, melena, hematochezia - Medication Medications: Active Medications Generic Name Dose Route Start Last Admin Trade Name Freq PRN Reason Stop Dose Admin Acetylcysteine 600 mg 10/17/19 21:00 10/18/19 06:02 Mucomyst 20% PO 10/18/19 21:01 600 mg BID [facility] Administration Amlodipine Besylate 10 mg 10/17/19 09:00 10/18/19 06:02 Norvasc PO 10 mg DAILY [facility] Administration Aspirin 325 mg 10/14/19 09:00 10/18/19 08:15 Ecotrin PO 325 mg DAILY [facility] Administration Duloxetine HCl 60 mg 10/14/19 09:00 10/18/19 08:15 Cymbalta PO 60 mg DAILY [facility] Administration Gabapentin 300 mg 10/16/19 09:00 10/18/19 08:15 Neurontin PO 300 mg DAILY [facility] Administration Insulin Glargine 80 units/ 0.8 mls @ 0 mls/hr 10/14/19 21:00 10/17/19 21:00 Miscellaneous Medication SC 0.8 mls HS [facility] Administration Sodium Bicarbonate 50 meq/ 1,050 mls @ 100 mls/hr 10/16/19 06:32 10/18/19 08: 14 Sodium Chloride IV 1,050 mls INF [facility] Administration Dextrose/Water 1,000 mls @ 50 mls/hr 10/18/19 06:30 10/18/19 07:27 D5w IV 1,000 mls .Q20H [facility] Administration Insulin Human Lispro 0 units 10/14/19 08:37 10/14/19 17:50 Humalog SC 3 unit .MILD SLIDING SCALE PRN Administration Mild Correctional Scale Isosorbide Dinitrate 10 mg 10/17/19 09:00 10/18/19 06:02 Isordil PO 10 mg BID [facility] Administration Metoprolol Tartrate 100 mg 10/15/19 21:00 10/18/19 06:03 Lopressor PO 100 mg BID [facility] Administration Ondansetron HCl 4 mg 10/14/19 12:31 10/18/19 08:15 Zofran Odt PO 4 mg Q6H PRN Administration Nausea/Vomiting Sodium Bicarbonate 650 mg 10/15/19 21:00 10/18/19 06:02 Bicarbonate, Sodium PO 650 mg BID [facility] Administration Sodium Chloride 10 ml 10/14/19 09:00 10/18/19 08:16 Flush - Normal Saline IVF 10 ml Q12HR [facility] Administration - Exam General - other findings: Morbid obesity Eye: anicteric sclera ENT: moist mucosa Neck: supple, no thyromegaly Heart: RRR, no rubs Respiratory: CTAB Gastrointestinal: soft, non-tender Skin: no rashes Musculoskeletal: no muscle wasting Psychiatric: normal affect, normal behavior, A&O x 3 Hosp A/P - Plan - Assessment (1) Chest pain Code(s): R07.9 - CHEST PAIN, UNSPECIFIED Status: Acute Qualifiers: Chest pain type: precordial pain Qualified Code(s): R07.2 - Precordial pain (2) Acute on chronic stage 4 renal failure Status: Chronic (3) HTN (hypertension) Code(s): I10 - ESSENTIAL (PRIMARY) HYPERTENSION Status: Chronic Qualifiers: Hypertension type: essential hypertension Qualified Code(s): I10 - Essential (primary) hypertension (4) Hyperlipidemia Code(s): E78.5 - HYPERLIPIDEMIA, UNSPECIFIED Status: Chronic Qualifiers: Hyperlipidemia type: unspecified Qualified Code(s): E78.5 - Hyperlipidemia , unspecified (5) Anxiety and depression Code(s): F41.8 - OTHER SPECIFIED ANXIETY DISORDERS Status: Chronic (6) Diabetes mellitus type II, uncontrolled Code(s): E11.65 - TYPE 2 DIABETES MELLITUS WITH HYPERGLYCEMIA Status: Chronic - Plan For cath today. Nephrology following re; acute on chronic stage 4 CKD. Pt receiving Mucomyst. No ACEI. Depression mild, stable.
[2019-10-18] MEDS ORDERED: Sodium Chloride 0.9% 200 ML IV PRN (15:22)
[2019-10-18] MEDS ORDERED: Furosemide 40 MG/4 ML VIAL SLOW IVP SCH (15:30)
[2019-10-18] MEDS: Atorvastatin Calcium 40 MG TAB PO SCH (20:54)
[2019-10-18] MEDS: Insulin Glargine 80 UNITS in Pre-Filled Syringe 1 EACH SC SCH (20:55)
[2019-10-18] MEDS: Acetaminophen/Codeine 30-300mg Tablet PO PRN (21:42)
[2019-10-18] MEDS ORDERED: hydrALAZINE 20 MG/ML VIAL SLOW IVP PRN (21:56)
[2019-10-18] MEDS ORDERED: cloNIDine 0.1 MG TAB PO PRN (23:28)
[2019-10-18] MEDS ORDERED: Labetalol HCl 100 MG/20 ML VIAL SLOW IVP PRN (23:28)
[2019-10-18] MEDS ORDERED: Ondansetron PF 4 MG/2 ML Vial IVP SCH ×2 (23:29→23:45)
[2019-10-19] MEDS: Promethazine HCl 12.5 MG in Sodium Chloride 0.9% 50 ML IVPB PRN ×4 (00:09→22:57)
[2019-10-19] MEDS: Acetaminophen/Codeine 30-300mg Tablet PO PRN ×4 (03:40→20:40)
[2019-10-19 04:28] LABS: Albumin 3.1 g/dL (3.5-5.0); Anion Gap 14 mmol/L (10-20); BUN (Urea Nitrogen) 47 mg/dL (7.0-18.7); BUN/Creatinine Ratio 13.35; Calc. Creatinine Clearance 43 mL/min (70-130); Calcium 8.7 mg/dL (7.8-10.44); Carbon Dioxide 22 mmol/L (22-29); Chloride 106 mmol/L (98-107); Estimated GFR-MDRD 14; Glucose 81 mg/dL (70-105); Phosphorus 4.6 mg/dL (2.3-4.7); Potassium 4.2 mmol/L (3.5-5.1); Sodium 138 mmol/L (136-145)
[2019-10-19] MEDS: Aspirin 325 mg Enteric Coated Tablet PO SCH (08:23)
[2019-10-19] MEDS: Amlodipine 5 MG TAB PO SCH (08:23)
[2019-10-19] MEDS: DULoxetine 60 MG CAP PO SCH (08:24)
[2019-10-19] MEDS: Gabapentin 300 MG CAP PO SCH (08:24)
[2019-10-19] MEDS: Isosorbide Dinitrate 20 MG TAB PO SCH ×2 (08:24→20:36)
[2019-10-19] MEDS: Metoprolol Tartrate 100 MG TAB PO SCH ×2 (08:24→20:37)
[2019-10-19] MEDS: Sodium Bicarbonate Tab 325 MG TAB PO SCH ×2 (08:24→20:37)
--- NOTE | 2019-10-19 09:09 | ULT ---
Ultrasound Doppler duplex venous left upper extremity: HISTORY: 48-year-old female with edema of left upper extremity. TECHNIQUE: Grayscale, color-flow, and spectral analysis, of major veins of left upper extremity. Compression and release applied to all veins except the subclavian. FINDINGS: There is patency, with no evidence of thrombosis, of low left internal jugular, subclavian, axillary, brachial, radial, ulnar, cephalic, and basilic, veins. IMPRESSION: Negative. No deep venous thrombosis of left upper extremity.
--- NOTE | 2019-10-19 12:26 | PRG ---
DATE OF SERVICE: 10/19/2019 SERVICE: Nephrology. SUBJECTIVE: A 48-year-old female seen in followup for renal insufficiency. The patient initially was admitted due to chest pain and shortness of breath and was found to have abnormal stress test, requiring cardiac catheterization. Also found to have elevated creatinine. Treatment with IV fluids and discontinuation of RAAS michelle and diuretics, however, did not improve renal function and the patient subsequently had cardiac catheterization on October 18. No new problem. Chest pain and shortness of breath have resolved. Found to have occlusive disease on cardiac catheterization, but intervention could not be done due to at the upper arm as patient had radial catheterization. Repeat catheterization is planned next week for possible stent placement and angioplasty. OBJECTIVE: VITAL SIGNS: Temperature 97.8, pulse 65, respiratory rate 16, SpO2 of 95% on room air, blood pressure is 146/77. GENERAL: Obese female, in no distress. Afebrile. Anicteric. Acyanotic. HEENT: Normocephalic, atraumatic. Oral mucosa is moist. CARDIOVASCULAR: Regular rhythm and rate with normal heart sounds 1 and 2. RESPIRATORY: Fair air entry bilaterally with no obvious crackle or rhonchi or use of accessory muscles. GI: Morbidly obese, soft, nontender, nondistended with normal bowel sounds. EXTREMITIES: Mild right upper limb edema noted. Left BKA noted. Right lower extremity is unremarkable with no edema or erythema. 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 Cranial nerves 2 through 12 are grossly intact. DIAGNOSTIC DATA: Renal function panel showed sodium 138, potassium 4.2, chloride 106, CO2 of 22, BUN 47, creatinine 3.52, calcium 8.7, phosphorus 4.6, albumin 3.1. Note that yesterday creatinine was 3.42. ASSESSMENT: 1. Renal insufficiency: Most likely due to acute kidney injury on chronic kidney disease. Creatinine did come down marginally yesterday before contrast. It is mildly elevated today, but the patient received diuretics and IV fluid is currently off to avoid fluid overload. 2. Chronic kidney disease of unclear stage. Baseline creatinine is unknown. This most likely due to diabetic nephropathy and hypertensive nephrosclerosis. Association with nephrotic range proteinuria makes other differentials include nephritis and nephrosis possible. 3. Nephrotic range proteinuria. 4. Anemia in chronic kidney disease. 5. Metabolic acidosis. 6. Coronary artery disease with occlusive disease on diagnostic angiogram. PLAN: 1. We will discontinue IV fluid for now to avoid fluid overload. 2. Avoid nephrotoxic agents. 3. Monitor renal function with discontinuation of IV fluid. 4. Adequate BP control with adjustment of antihypertensives. 5. If renal function does not improve in the next two days, we will consider renal biopsy for evaluation of nephrotic range proteinuria to be sure there is no reversible component. 6. Further treatment to follow depending on hospital course. 7. We will Cardiology to delineate plan vis-a-vis repeat cardiac catheterization. Job ID: [id number]
[2019-10-19] MEDS: Liraglutide [Victoza 2-Pak] 0.6 MG SC SCH ×3 (14:08→14:11)
--- NOTE | 2019-10-19 17:57 | PDOC.HOSPP ---
- Subjective Encounter Date: 10/19/19 Encounter Time: 09:20 Subjective: Pt seen for followup re: chest pain. No complaints today. had cath yesterday. - Objective Vital Signs & Weight: Vital Signs (12 hours) Temp Pulse Resp BP Pulse Ox 10/19/19 15:34 98.3 F 64 16 106/55 L 94 L 10/19/19 12:15 98.4 F 64 16 116/60 95 10/19/19 07:53 95 10/19/19 07:34 97.8 F 65 16 146/77 H 95 Weight Weight 310 lb I&O: 10/18/19 10/19/19 10/20/19 06:59 06:59 06:59 Intake Total 2950 Balance 2950 Result Diagrams: 10/16/19 03:33 10/19/19 03:34 Additional Labs: Accuchecks 10/19/19 10/19/19 10/18/19 10:42 06:04 20:48 POC Glucose 82 73 191 H Labs and MARs reviewed by me EKG Reviewed by me: Yes (Tele: NSR) Hospitalist ROS - Review of Systems Cardiovascular: denies: chest pain, palpitations, orthopnea, paroxysmal noc. dyspnea, edema, light headedness Gastrointestinal: denies: nausea, vomiting, abdominal pain, diarrhea, constipation, melena, hematochezia - Medication Medications: Active Medications Generic Name Dose Route Start Last Admin Trade Name Freq PRN Reason Stop Dose Admin Acetaminophen/Codeine Phosphate 2 tab 10/18/19 15:22 10/19/19 13:41 Tylenol #3 PO 2 tab Q4H PRN Administration Moderate Pain (4-6) Amlodipine Besylate 10 mg 10/17/19 09:00 10/19/19 08:23 Norvasc PO 10 mg DAILY PANCHO Administration Aspirin 325 mg 10/14/19 09:00 10/19/19 08:23 Ecotrin PO 325 mg DAILY PANCHO Administration Atorvastatin Calcium 40 mg 10/18/19 21:00 10/18/19 20:54 Lipitor PO 40 mg HS PANCHO Administration Duloxetine HCl 60 mg 10/14/19 09:00 10/19/19 08:24 Cymbalta PO 60 mg DAILY PANCHO Administration Gabapentin 300 mg 10/16/19 09:00 10/19/19 08:24 Neurontin PO 300 mg DAILY PANCHO Administration Hydralazine HCl 10 mg 10/18/19 21:56 10/18/19 22:21 Apresoline SLOW IVP 10 mg Q4H PRN Administration SBP>180 Insulin Glargine 80 units/ 0.8 mls @ 0 mls/hr 10/14/19 21:00 10/18/19 20:55 Miscellaneous Medication SC 0.8 mls HS PANCHO Administration Promethazine HCl 12.5 mg/ 50.5 mls @ 202 mls/hr 10/18/19 23:29 10/19/19 16:36 Sodium Chloride IVPB 50.5 mls Q6H PRN Administration Nausea/vomiting use second Insulin Human Lispro 0 units 10/14/19 08:37 10/14/19 17:50 Humalog SC 3 unit .MILD SLIDING SCALE PRN Administration Mild Correctional Scale Isosorbide Dinitrate 10 mg 10/17/19 09:00 10/19/19 08:24 Isordil PO 10 mg BID PANCHO Administration Metoprolol Tartrate 100 mg 10/15/19 21:00 10/19/19 08:24 Lopressor PO 100 mg BID PANCHO Administration Ondansetron HCl 4 mg 10/14/19 12:31 10/18/19 21:43 Zofran Odt PO 4 mg Q6H PRN Administration Nausea/Vomiting Ranolazine 500 mg 10/18/19 21:00 10/19/19 08:24 Ranexa PO 500 mg BID PANCHO Administration Sodium Bicarbonate 650 mg 10/15/19 21:00 10/19/19 08:24 Bicarbonate, Sodium PO 650 mg BID PANCHO Administration Sodium Chloride 10 ml 10/14/19 09:00 10/19/19 08:24 Flush - Normal Saline IVF 10 ml Q12HR PANCHO Administration Tramadol HCl 50 mg 10/18/19 11:45 10/18/19 15:55 Ultram PO 50 mg Q12H PRN Administration Pain - Exam General - other findings: Morbid obesity Eye: anicteric sclera ENT: moist mucosa Neck: supple Heart: RRR Respiratory: CTAB Gastrointestinal: soft, non-tender Skin: no rashes Musculoskeletal: no muscle wasting Psychiatric: normal affect, normal behavior Hosp A/P - Plan - Assessment (1) Chest pain Code(s): R07.9 - CHEST PAIN, UNSPECIFIED Status: Acute Qualifiers: Chest pain type: precordial pain Qualified Code(s): R07.2 - Precordial pain (2) Acute on chronic stage 4 renal failure Status: Chronic (3) HTN (hypertension) Code(s): I10 - ESSENTIAL (PRIMARY) HYPERTENSION Status: Chronic Qualifiers: Hypertension type: essential hypertension Qualified Code(s): I10 - Essential (primary) hypertension (4) Hyperlipidemia Code(s): E78.5 - HYPERLIPIDEMIA, UNSPECIFIED Status: Chronic Qualifiers: Hyperlipidemia type: unspecified Qualified Code(s): E78.5 - Hyperlipidemia , unspecified (5) Anxiety and depression Code(s): F41.8 - OTHER SPECIFIED ANXIETY DISORDERS Status: Chronic (6) Diabetes mellitus type II, uncontrolled Code(s): E11.65 - TYPE 2 DIABETES MELLITUS WITH HYPERGLYCEMIA Status: Chronic (6) Morbid obesity Status: Chronic - Plan Pt had cath yesterday, may need repeat cath early next week. Medical management of CAD for now. Nephrology following. No ACEI. Depression mild, stable.
[2019-10-19] MEDS: Atorvastatin Calcium 40 MG TAB PO SCH (20:36)
[2019-10-19] MEDS: Insulin Glargine 80 UNITS in Pre-Filled Syringe 1 EACH SC SCH (20:37)
[2019-10-19] MEDS: Ondansetron ODT 4 MG TAB PO PRN (20:41)
[2019-10-20 05:18] LABS: Albumin 2.9 g/dL (3.5-5.0); Anion Gap 13 mmol/L (10-20); BUN (Urea Nitrogen) 56 mg/dL (7.0-18.7); BUN/Creatinine Ratio 11.99; Calc. Creatinine Clearance 33 mL/min (70-130); Calcium 8.3 mg/dL (7.8-10.44); Carbon Dioxide 26 mmol/L (22-29); Chloride 105 mmol/L (98-107); Estimated GFR-MDRD 10; Glucose 104 mg/dL (70-105); Potassium 4.8 mmol/L (3.5-5.1); Sodium 139 mmol/L (136-145)
[2019-10-20] MEDS: Acetaminophen/Codeine 30-300mg Tablet PO PRN ×4 (05:46→22:01)
[2019-10-20] MEDS: Promethazine HCl 12.5 MG in Sodium Chloride 0.9% 50 ML IVPB PRN ×3 (05:46→21:57)
[2019-10-20] MEDS: Metoprolol Tartrate 100 MG TAB PO SCH ×2 (08:20→21:54)
[2019-10-20] MEDS: Sodium Bicarbonate Tab 325 MG TAB PO SCH ×2 (08:20→21:53)
[2019-10-20] MEDS: hydrALAZINE 25 MG TAB PO SCH ×3 (08:20→21:55)
[2019-10-20] MEDS: DULoxetine 60 MG CAP PO SCH (08:21)
[2019-10-20] MEDS: Gabapentin 300 MG CAP PO SCH (08:21)
[2019-10-20] MEDS: Aspirin 325 mg Enteric Coated Tablet PO SCH (08:21)
[2019-10-20] MEDS: Isosorbide Dinitrate 20 MG TAB PO SCH ×3 (08:21→21:53)
--- NOTE | 2019-10-20 13:34 | PDOC.HOSPP ---
- Subjective Encounter Date: 10/20/19 Encounter Time: 08:20 Subjective: Pt seen for followup re: chest pain. Feels sleepy, no new complaints today. - Objective Vital Signs & Weight: Vital Signs (12 hours) Temp Pulse Resp BP Pulse Ox 10/20/19 11:13 98.1 F 67 17 113/60 97 10/20/19 07:22 93 L 10/20/19 07:17 97.9 F 64 20 116/65 93 L 10/20/19 04:05 97.4 F L 65 14 128/71 94 L Weight Weight 310 lb I&O: 10/19/19 10/20/19 10/21/19 06:59 06:59 06:59 Intake Total 2950 1200 Balance 2950 1200 Result Diagrams: 10/16/19 03:33 10/20/19 04:31 Additional Labs: Accuchecks 10/20/19 10/20/19 10/19/19 10:51 05:47 20:32 POC Glucose 157 H 106 129 H 10/19/19 17:14 POC Glucose 116 H Labs and MARs reviewed by me EKG Reviewed by me: Yes (Tele: NSR) Hospitalist ROS - Review of Systems Cardiovascular: denies: chest pain, palpitations, orthopnea, paroxysmal noc. dyspnea, edema, light headedness Skin: denies: rash, lesions, brayan, bruising - Medication Medications: Active Medications Generic Name Dose Route Start Last Admin Trade Name Freq PRN Reason Stop Dose Admin Acetaminophen/Codeine Phosphate 2 tab 10/18/19 15:22 10/20/19 13:07 Tylenol #3 PO 2 tab Q4H PRN Administration Moderate Pain (4-6) Aspirin 325 mg 10/14/19 09:00 10/20/19 08:21 Ecotrin PO 325 mg DAILY PANCHO Administration Atorvastatin Calcium 40 mg 10/18/19 21:00 10/19/19 20:36 Lipitor PO 40 mg HS PANCHO Administration Duloxetine HCl 60 mg 10/14/19 09:00 10/20/19 08:21 Cymbalta PO 60 mg DAILY PANCHO Administration Gabapentin 300 mg 10/16/19 09:00 10/20/19 08:21 Neurontin PO 300 mg DAILY PANCHO Administration Hydralazine HCl 10 mg 10/18/19 21:56 10/18/19 22:21 Apresoline SLOW IVP 10 mg Q4H PRN Administration SBP>180 Hydralazine HCl 25 mg 10/20/19 09:00 10/20/19 08:20 Apresoline PO 25 mg TID PANCHO Administration Insulin Glargine 80 units/ 0.8 mls @ 0 mls/hr 10/14/19 21:00 10/19/19 20:37 Miscellaneous Medication SC Not Given HS PANCHO Promethazine HCl 12.5 mg/ 50.5 mls @ 202 mls/hr 10/18/19 23:29 10/20/19 13:07 Sodium Chloride IVPB 50.5 mls Q6H PRN Administration Nausea/vomiting use second Insulin Human Lispro 0 units 10/14/19 08:37 10/14/19 17:50 Humalog SC 3 unit .MILD SLIDING SCALE PRN Administration Mild Correctional Scale Isosorbide Dinitrate 10 mg 10/20/19 09:00 10/20/19 08:21 Isordil PO 10 mg TID PANCHO Administration Metoprolol Tartrate 50 mg 10/20/19 07:33 10/20/19 08:20 Lopressor PO 50 mg BID PANCHO Administration Ondansetron HCl 4 mg 10/14/19 12:31 10/19/19 20:41 Zofran Odt PO 4 mg Q6H PRN Administration Nausea/Vomiting Ranolazine 500 mg 10/18/19 21:00 10/20/19 08:20 Ranexa PO 500 mg BID PANCHO Administration Sodium Bicarbonate 650 mg 10/15/19 21:00 10/20/19 08:20 Bicarbonate, Sodium PO 650 mg BID PANCHO Administration Sodium Chloride 10 ml 10/14/19 09:00 10/20/19 08:21 Flush - Normal Saline IVF 10 ml Q12HR PANCHO Administration Tramadol HCl 50 mg 10/18/19 11:45 10/18/19 15:55 Ultram PO 50 mg Q12H PRN Administration Pain - Exam General - other findings: Morbid obesity ENT: normocephalic atraumatic, no oropharyngeal lesions, moist mucosa Neck: supple Heart: RRR Respiratory: CTAB Gastrointestinal: soft, non-tender Extremities: no edema Psychiatric: normal affect, normal behavior Hosp A/P - Plan - Assessment (1) Chest pain Code(s): R07.9 - CHEST PAIN, UNSPECIFIED Status: Acute Qualifiers: Chest pain type: precordial pain Qualified Code(s): R07.2 - Precordial pain (2) Acute on chronic stage 4 renal failure Status: Chronic (3) HTN (hypertension) Code(s): I10 - ESSENTIAL (PRIMARY) HYPERTENSION Status: Chronic Qualifiers: Hypertension type: essential hypertension Qualified Code(s): I10 - Essential (primary) hypertension (4) Hyperlipidemia Code(s): E78.5 - HYPERLIPIDEMIA, UNSPECIFIED Status: Chronic Qualifiers: Hyperlipidemia type: unspecified Qualified Code(s): E78.5 - Hyperlipidemia , unspecified (5) Anxiety and depression Code(s): F41.8 - OTHER SPECIFIED ANXIETY DISORDERS Status: Chronic (6) Diabetes mellitus type II, uncontrolled Code(s): E11.65 - TYPE 2 DIABETES MELLITUS WITH HYPERGLYCEMIA Status: Chronic (6) Morbid obesity Status: Chronic - Plan Pt reports she was told she may need repeat cath early next week. Medical management of CAD for now. Creatinine 4.67 today. Depression mild, stable.
--- NOTE | 2019-10-20 18:26 | PRG ---
DATE OF SERVICE: 10/20/2019 SERVICE: Nephrology. SUBJECTIVE: A 48-year-old female with diabetes and hypertension admitted due to chest pain. Nephrology is following the patient for renal insufficiency. The patient had a cardiac catheterization 2 days ago. Chest pain has subsided and the patient denies shortness of breath. OBJECTIVE: VITAL SIGNS: Temperature 97.9, pulse 64, respiratory rate 20, SpO2 of 93% on room air, and blood pressure is 116/65. GENERAL: Obese female, in no distress. Afebrile. Anicteric. Acyanotic. HEENT: Normocephalic and atraumatic. NECK: Supple with no JVD. CARDIOVASCULAR: Regular rhythm and rate with normal heart sounds 1 and 2. RESPIRATORY: Fair air entry bilaterally with few transmitted breath sounds. No crackles or use of accessory muscles appreciated. GI: Obese, soft, nontender, and nondistended with normal bowel sounds. EXTREMITIES: Left BKA noted. Other extremities are grossly normal with no edema or erythema. 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 Cranial nerves 2 through 12 are grossly intact. DIAGNOSTIC DATA: Renal function panel today showed sodium 139, potassium 4.8, chloride 105, CO2 of 26, BUN 56, creatinine 4.67, glucose 104, calcium 8.3, phosphorus 6.0, and albumin 2.9. ASSESSMENT: 1. Acute kidney injury: Creatinine is up today from 3.52 yesterday to 4.67. This happening about 36 to 48 hours, post contrast is consistent with contrast-induced nephropathy. 2. Chronic kidney disease, stage 4 to 5: Due to hypertensive nephrosclerosis and diabetic nephropathy. Reversible component from other causes could not be ruled out, given nephrotic range proteinuria. 3. Coronary artery disease with occlusive disease. Repeat cardiac catheterization with angioplasty is contemplated. 4. Hypertension: Control is acceptable. Blood pressures have gone down to 100 and 110 systolic. The patient was started on isosorbide dinitrate yesterday with significant drop in systolic blood pressure. This corresponding with increase in creatinine. It is concerning for possible poor perfusion leading to acute kidney injury, which could be seen in people who are constant to elevated blood pressures. 5. Diabetes mellitus with diabetic foot ulcer, requiring left lower extremity amputation. 6. Morbid obesity with presumed obstructive sleep apnea. PLAN: We will discontinue amlodipine. We will also decrease metoprolol to 50 mg b.i.d. We will increase isosorbide dinitrate to 20 t.i.d. and start the patient on hydralazine 25 mg t.i.d. given significant coronary artery disease. Hopefully, blood pressures with increase to 120s and 130s. We will recheck renal function test in the morning. Further treatment to follow depending on hospital course. Job ID: [id number]
[2019-10-20] MEDS: Atorvastatin Calcium 40 MG TAB PO SCH (21:54)
[2019-10-20] MEDS: Insulin Glargine 80 UNITS in Pre-Filled Syringe 1 EACH SC SCH (21:55)
[2019-10-21] MEDS: Promethazine HCl 12.5 MG in Sodium Chloride 0.9% 50 ML IVPB PRN ×3 (04:44→17:35)
[2019-10-21] MEDS: Acetaminophen/Codeine 30-300mg Tablet PO PRN ×4 (04:45→20:51)
[2019-10-21 05:12] LABS: Anion Gap 14 mmol/L (10-20); BUN (Urea Nitrogen) 59 mg/dL (7.0-18.7); BUN/Creatinine Ratio 11.57; Calc. Creatinine Clearance 31 mL/min (70-130); Calcium 8.3 mg/dL (7.8-10.44); Carbon Dioxide 25 mmol/L (22-29); Chloride 106 mmol/L (98-107); Estimated GFR-MDRD 9; Glucose 135 mg/dL (70-105); Phosphorus 6.2 mg/dL (2.3-4.7); Potassium 4.8 mmol/L (3.5-5.1); Sodium 140 mmol/L (136-145)
[2019-10-21] MEDS: Aspirin 325 mg Enteric Coated Tablet PO SCH (09:50)
[2019-10-21] MEDS: DULoxetine 60 MG CAP PO SCH (09:51)
[2019-10-21] MEDS: Gabapentin 300 MG CAP PO SCH (09:51)
[2019-10-21] MEDS: hydrALAZINE 25 MG TAB PO SCH ×3 (09:51→20:50)
[2019-10-21] MEDS: Isosorbide Dinitrate 20 MG TAB PO SCH ×3 (09:52→20:50)
[2019-10-21] MEDS: Metoprolol Tartrate 100 MG TAB PO SCH ×2 (09:53→20:51)
[2019-10-21] MEDS: Sodium Bicarbonate Tab 325 MG TAB PO SCH ×2 (09:55→20:52)
--- NOTE | 2019-10-21 11:06 | PRG ---
DATE OF SERVICE: 10/21/2019 SERVICE: Nephrology. SUBJECTIVE: A 48-year-old female with diabetes and hypertension, admitted due to chest pain and shortness of breath and found to have coronary artery disease. Nephrology is following the patient for acute on chronic renal failure. No new problem. Denied chest pain, shortness of breath, or edema. OBJECTIVE: VITAL SIGNS: Temperature 97.5, pulse 72, respiratory rate 12, SpO2 of 96% on room air, and blood pressure is 155/79. GENERAL: Obese female, in no distress. Afebrile. Anicteric. Acyanotic. HEENT: Normocephalic and atraumatic. Oral mucosa is moist. CARDIOVASCULAR: Regular rhythm and rate. Normal heart sounds one and two. RESPIRATORY: Fair air entry bilaterally with no crackle or rhonchi or use of accessory muscles. GI: Morbidly obese, soft, nontender, and nondistended with normal bowel sounds. EXTREMITIES: Left BKA noted. Right lower extremity is grossly normal with no edema or erythema. 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 DIAGNOSTIC DATA: Renal function panel today showed sodium 140, potassium 4.8, chloride 106, CO2 of 25, BUN 59, creatinine 5.10, glucose 135, calcium 8.3, phosphorus 6.2, and albumin 3.0. ASSESSMENT: 1. Acute on chronic renal failure: This is due to contrast induced nephropathy. The patient got a contrast in cardiac catheterization. Creatinine continues to trend up from 3.5 prior to contrast to 5.10 today. 2. Hyperphosphatemia. 3. Secondary hyperparathyroidism. 4. Anemia in chronic kidney disease. 5. Coronary artery disease. 6. Hypertension. 7. Diabetes mellitus. PLAN: 1. We will increase the isosorbide dinitrate to 20 mg t.i.d. 2. We will continue to avoid nephrotoxic agents. 3. We will monitor daily weights as well as intake and output. 4. We will recheck renal function test in the morning. Job ID: [id number]
--- NOTE | 2019-10-21 15:39 | PDOC.CPN ---
- Subjective Date: 10/21/19 Time: 08:00 Interval history: The pt seen and examined. No overnight events. No cardiac complaints. - Objective Allergies/Adverse Reactions: Allergies Allergy/AdvReac Type Severity Reaction Status Date / Time codeine AdvReac Verified 06/05/17 03:31 Visit Medications: Current Medications Acetaminophen/Codeine Phosphate (Tylenol #3) 1 tab PO Q4H PRN PRN Reason: Mild Pain (1-3) Acetaminophen/Codeine Phosphate (Tylenol #3) 2 tab PO Q4H PRN PRN Reason: Moderate Pain (4-6) Last Admin: 10/21/19 10:56 Dose: 2 tab Aspirin (Ecotrin) 325 mg PO DAILY [facility] Last Admin: 10/21/19 09:50 Dose: 325 mg Atorvastatin Calcium (Lipitor) 40 mg PO HS [facility] Last Admin: 10/20/19 21:54 Dose: 40 mg Clonidine (Catapres) 0.1 mg PO BID PRN PRN Reason: SBP > 160 use second Dextrose/Water (Dextrose 50%) 25 gm SLOW IVP PRN PRN PRN Reason: Hypoglycemia Duloxetine HCl (Cymbalta) 60 mg PO DAILY [facility] Last Admin: 10/21/19 09:51 Dose: 60 mg Gabapentin (Neurontin) 300 mg PO DAILY [facility] Last Admin: 10/21/19 09:51 Dose: 300 mg Glucagon (Glucagon) 1 mg IM PRN PRN PRN Reason: Hypoglycemia Hydralazine HCl (Apresoline) 10 mg SLOW IVP Q4H PRN PRN Reason: SBP>180 Last Admin: 10/18/19 22:21 Dose: 10 mg Hydralazine HCl (Apresoline) 10 mg SLOW IVP Q6H PRN PRN Reason: SBP GREATER THAN 160 Hydralazine HCl (Apresoline) 25 mg PO TID [facility] Last Admin: 10/21/19 09:51 Dose: 25 mg Dextrose/Water (D5w) 1,000 mls @ 0 mls/hr IV .Q0M PRN PRN Reason: Hypoglycemia Insulin Glargine 80 units/ (Miscellaneous Medication) 0.8 mls @ 0 mls/hr [facility] Last Admin: 10/20/19 21:55 Dose: Not Given Promethazine HCl 12.5 mg/ (Sodium Chloride) 50.5 mls @ 202 mls/hr IVPB Q6H PRN PRN Reason: Nausea/vomiting use second Last Admin: 10/21/19 10:57 Dose: 50.5 mls Insulin Human Lispro (Humalog) 0 units SC .MILD SLIDING SCALE PRN PRN Reason: Mild Correctional Scale Last Admin: 10/14/19 17:50 Dose: 3 unit Isosorbide Dinitrate (Isordil) 20 mg PO TID [facility] Last Admin: 10/21/19 09:52 Dose: 20 mg Labetalol HCl (Normodyne) 20 mg SLOW IVP Q4H PRN PRN Reason: SBP > 160 use third Metoprolol Tartrate (Lopressor) 50 mg PO BID [facility] Last Admin: 10/21/19 09:53 Dose: 50 mg Nitroglycerin (Nitrostat) 0.4 mg SL Q5MIN PRN PRN Reason: Chest Pain Ondansetron HCl (Zofran Odt) 4 mg PO Q6H PRN PRN Reason: Nausea/Vomiting Last Admin: 10/19/19 20:41 Dose: 4 mg Ranolazine (Ranexa) 500 mg PO BID [facility] Last Admin: 10/21/19 09:54 Dose: 500 mg Sodium Bicarbonate (Bicarbonate, Sodium) 650 mg PO BID [facility] Last Admin: 10/21/19 09:55 Dose: 650 mg Sodium Chloride (Flush - Normal Saline) 10 ml IVF Q12HR [facility] Last Admin: 10/21/19 04:46 Dose: 10 ml Tramadol HCl (Ultram) 50 mg PO Q12H PRN PRN Reason: Pain Last Admin: 10/18/19 15:55 Dose: 50 mg Vital Signs & Weight: Vital Signs Temp Pulse Resp BP Pulse Ox 10/21/19 08:05 97.5 F L 72 12 155/79 H 10/21/19 03:54 97.7 F 71 18 147/74 H 96 Weight 318 lb 3.2 oz - Physical Exam General: alert & oriented x3 HEENT: mucus membranes moist Neck: supple neck Cardiac: regular rate and rhythm, S1/S2 Lungs: clear to auscultation, decreased breath sounds Neuro: cranial nerve 2-12 intact Extremities: no edema - Labs Result Diagrams: 10/16/19 03:33 10/21/19 03:34 Troponin/CKMB Troponin I 0.020 ng/mL (< 0.028) 10/13/19 22:56 - Telemetry Sinus rhythms and dysrhythmias: sinus rhythm - Assessment/Plan Assessment/Plan: 1. CAD with s/p LHC on with 40% stenosis in mid LAD, 90% in distal LAD, and 99% in Lt Cx after DM1 - Plan for PTCA to Lt Cx with stable renal function; The pt is asymptomatic 2. KAY on CKD - managed by Dr Hernandez (Appreciate Dr Hernandez's input!) 3. HTN - stable with current meds 4. Insulin-dependent DM - on D5 @ 50ml/h; managed by PCP 5. depression - 6. Anemia - unchanged 7. Sleep Apnea - the pt stated she will have Sleep study as outpt once she has insurance from November. NOV reviewed pt. seen and eval. by me. I agree with the A/P by the INSPECTOR SHELLS., Hopefully the renal function will stabilize. The cath is a consideration. It was difficult to visualize the vessels due to her body mass. this will make intervention difficult and may require more contrast than usual. Chest clear. RRR. No edema. she will likely need dialysis sooner than later.
--- NOTE | 2019-10-21 19:54 | PDOC.HOSPP ---
- Subjective Encounter Date: 10/21/19 Encounter Time: 09:40 Subjective: Pt seen for followup re: chest pain. Feels slightly better today. No chest pain today. - Objective Vital Signs & Weight: Vital Signs (12 hours) Temp Pulse Resp BP Pulse Ox 10/21/19 16:20 98.2 F 70 16 143/70 H 96 10/21/19 11:35 97.3 F L 71 16 105/67 96 10/21/19 08:05 97.5 F L 72 12 155/79 H 10/21/19 08:00 95 Weight Weight 318 lb 3.2 oz I&O: 10/20/19 10/21/19 10/22/19 06:59 06:59 06:59 Intake Total 1200 2080 1140 Balance 1200 2080 1140 Result Diagrams: 10/16/19 03:33 10/21/19 03:34 Additional Labs: Accuchecks 10/21/19 10/21/19 10/21/19 16:50 10:43 06:16 POC Glucose 188 H 132 H 137 H 10/20/19 21:20 POC Glucose 151 H Labs and MARs reviewed by me EKG Reviewed by me: Yes (Tele: NSR) Hospitalist ROS - Review of Systems Cardiovascular: denies: chest pain, palpitations, orthopnea, paroxysmal noc. dyspnea, edema, light headedness Musculoskeletal: denies: neck pain, shoulder pain, arm pain, back pain, hand pain, leg pain, foot pain - Medication Medications: Active Medications Generic Name Dose Route Start Last Admin Trade Name Freq PRN Reason Stop Dose Admin Acetaminophen/Codeine Phosphate 2 tab 10/18/19 15:22 10/21/19 16:22 Tylenol #3 PO 2 tab Q4H PRN Administration Moderate Pain (4-6) Aspirin 325 mg 10/14/19 09:00 10/21/19 09:50 Ecotrin PO 325 mg DAILY PANCHO Administration Atorvastatin Calcium 40 mg 10/18/19 21:00 10/20/19 21:54 Lipitor PO 40 mg HS PANCHO Administration Duloxetine HCl 60 mg 10/14/19 09:00 10/21/19 09:51 Cymbalta PO 60 mg DAILY PANCHO Administration Gabapentin 300 mg 10/16/19 09:00 10/21/19 09:51 Neurontin PO 300 mg DAILY PANCHO Administration Hydralazine HCl 10 mg 10/18/19 21:56 10/18/19 22:21 Apresoline SLOW IVP 10 mg Q4H PRN Administration SBP>180 Hydralazine HCl 25 mg 10/20/19 09:00 10/21/19 16:21 Apresoline PO 25 mg TID PANCHO Administration Insulin Glargine 80 units/ 0.8 mls @ 0 mls/hr 10/14/19 21:00 10/20/19 21:55 Miscellaneous Medication SC Not Given HS [facility] Promethazine HCl 12.5 mg/ 50.5 mls @ 202 mls/hr 10/18/19 23:29 10/21/19 17:35 Sodium Chloride IVPB 50.5 mls Q6H PRN Administration Nausea/vomiting use second Insulin Human Lispro 0 units 10/14/19 08:37 10/14/19 17:50 Humalog SC 3 unit .MILD SLIDING SCALE PRN Administration Mild Correctional Scale Isosorbide Dinitrate 20 mg 10/21/19 09:00 10/21/19 16:22 Isordil PO 20 mg TID PANCHO Administration Metoprolol Tartrate 50 mg 10/20/19 07:33 10/21/19 09:53 Lopressor PO 50 mg BID PANCHO Administration Ondansetron HCl 4 mg 10/14/19 12:31 10/19/19 20:41 Zofran Odt PO 4 mg Q6H PRN Administration Nausea/Vomiting Ranolazine 500 mg 10/18/19 21:00 10/21/19 09:54 Ranexa PO 500 mg BID PANCHO Administration Sodium Bicarbonate 650 mg 10/15/19 21:00 10/21/19 09:55 Bicarbonate, Sodium PO 650 mg BID PANCHO Administration Sodium Chloride 10 ml 10/14/19 09:00 10/21/19 04:46 Flush - Normal Saline IVF 10 ml Q12HR PANCHO Administration Tramadol HCl 50 mg 10/18/19 11:45 10/18/19 15:55 Ultram PO 50 mg Q12H PRN Administration Pain - Exam General Appearance: NAD ENT: normocephalic atraumatic Neck: supple, no lymphadenopathy Heart: RRR Respiratory: no wheezes, no rales Gastrointestinal: soft, non-tender Extremities: no cyanosis Neurological: no weakness Musculoskeletal: no muscle wasting Psychiatric: normal affect, normal behavior Hosp A/P - Plan - Assessment (1) Chest pain Code(s): R07.9 - CHEST PAIN, UNSPECIFIED Status: Acute Qualifiers: Chest pain type: precordial pain Qualified Code(s): R07.2 - Precordial pain (2) Acute on chronic stage 4 renal failure Status: Chronic (3) HTN (hypertension) Code(s): I10 - ESSENTIAL (PRIMARY) HYPERTENSION Status: Chronic Qualifiers: Hypertension type: essential hypertension Qualified Code(s): I10 - Essential (primary) hypertension (4) Hyperlipidemia Code(s): E78.5 - HYPERLIPIDEMIA, UNSPECIFIED Status: Chronic Qualifiers: Hyperlipidemia type: unspecified Qualified Code(s): E78.5 - Hyperlipidemia , unspecified (5) Anxiety and depression Code(s): F41.8 - OTHER SPECIFIED ANXIETY DISORDERS Status: Chronic (6) Diabetes mellitus type II, uncontrolled Code(s): E11.65 - TYPE 2 DIABETES MELLITUS WITH HYPERGLYCEMIA Status: Chronic (6) Morbid obesity Status: Chronic - Plan Medical management of CAD for now. Creatinine 5.10 today. Depression mild, stable.
[2019-10-21] MEDS: Atorvastatin Calcium 40 MG TAB PO SCH (20:51)
[2019-10-21] MEDS: Insulin Glargine 80 UNITS in Pre-Filled Syringe 1 EACH SC SCH (20:52)
[2019-10-22] MEDS: Acetaminophen/Codeine 30-300mg Tablet PO PRN ×4 (00:05→23:50)
[2019-10-22] MEDS: Promethazine HCl 12.5 MG in Sodium Chloride 0.9% 50 ML IVPB PRN ×3 (00:43→23:50)
[2019-10-22] MEDS: Nitroglycerin 0.4 MG TAB (25 Tab Bottle) SL PRN ×3 (01:38→01:52)
[2019-10-22 03:40] LABS: CKMB 1.9 ng/mL (0-6.6)
[2019-10-22 06:25] LABS: Anion Gap 13 mmol/L (10-20); BUN (Urea Nitrogen) 57 mg/dL (7.0-18.7); BUN/Creatinine Ratio 11.78; Calc. Creatinine Clearance 32 mL/min (70-130); Calcium 8.5 mg/dL (7.8-10.44); Carbon Dioxide 25 mmol/L (22-29); Chloride 107 mmol/L (98-107); Estimated GFR-MDRD 10; Glucose 116 mg/dL (70-105); Phosphorus 5.8 mg/dL (2.3-4.7); Potassium 5.1 mmol/L (3.5-5.1); Sodium 140 mmol/L (136-145)
[2019-10-22 06:42] LABS: CKMB 2.3 ng/mL (0-6.6)
[2019-10-22] MEDS: DULoxetine 60 MG CAP PO SCH (08:52)
[2019-10-22] MEDS: Isosorbide Dinitrate 20 MG TAB PO SCH ×3 (08:52→19:50)
[2019-10-22] MEDS: Gabapentin 300 MG CAP PO SCH (08:52)
[2019-10-22] MEDS: Aspirin 325 mg Enteric Coated Tablet PO SCH (08:52)
[2019-10-22] MEDS: Metoprolol Tartrate 100 MG TAB PO SCH ×2 (08:53→19:50)
[2019-10-22] MEDS: hydrALAZINE 25 MG TAB PO SCH ×3 (08:54→19:50)
[2019-10-22] MEDS: Sodium Bicarbonate Tab 325 MG TAB PO SCH ×2 (08:54→19:49)
--- NOTE | 2019-10-22 09:16 | PRG ---
DATE OF SERVICE: 10/22/2019 SUBJECTIVE: Ms. Wilkes is a 48-year-old white female, who was seen by the Renal Service for her acute kidney injury. This is most likely a dye-induced ATN. Renal function is now noted to be stabilizing. Her creatinine is now noted at 4.84 and yesterday, this was at 5.10 and prior to that was 4.67. No other complaints today. Denies any chest pain or shortness of breath. OBJECTIVE: VITAL SIGNS: Blood pressure 136/62, heart rate 73, respiratory rate 18, temperature 97.7, and pulse ox 94%. GENERAL: Noted to be awake, alert, and comfortable, not in distress. SKIN: Adequate turgor. HEENT: She has a pinkish conjunctivae. Anicteric sclerae. NECK: No neck mass. No carotid bruits. No JVD. CHEST: No deformities. LUNGS: Clear breath sounds. HEART: Normal sinus rhythm. No murmur. No gallops. No rubs. ABDOMEN: Globular, soft, and nontender. No masses. EXTREMITIES: No edema. No deformities. MEDICATIONS: Medications of October 22, 2019, reviewed. LABORATORY DATA: Laboratories of October 22, 2019; sodium 140, potassium 5.1, chloride 107, carbon dioxide 25, BUN 57, creatinine 4.84, GFR 10 mL/minute, glucose 116, phosphorus is 5.8, and albumin 3.0. ASSESSMENT AND PLAN: 1. Acute kidney injury - presumptive dye-induced acute tubular necrosis. Continue supportive care. No indication for an emergent hemodialysis. Continue to hold off any angiotensin-converting enzyme inhibitors or diuretics. 2. Hyperphosphatemia. Phosphorus noted at 5.8. We will start patient on Renvela 800 mg one tablet t.i.d. with meals. Agree with current management. Recheck basic metabolic and CBC in a.m. Job ID: [id number]
[2019-10-22] MEDS ORDERED: Promethazine HCl 25 MG/ML VIAL IM/IV SCH (11:15)
[2019-10-22] MEDS: Sevelamer Carbonate 800 MG TAB PO SCH ×2 (12:12→15:27)
--- NOTE | 2019-10-22 15:59 | PDOC.CPN ---
- Subjective Date: 10/22/19 Time: 08:30 Interval history: The pt seen and examined. No overnight events. No cardiac complaints. - Objective Allergies/Adverse Reactions: Allergies Allergy/AdvReac Type Severity Reaction Status Date / Time codeine AdvReac Verified 06/05/17 03:31 Visit Medications: Current Medications Acetaminophen/Codeine Phosphate (Tylenol #3) 1 tab PO Q4H PRN PRN Reason: Mild Pain (1-3) Last Admin: 10/21/19 20:51 Dose: 1 tab Acetaminophen/Codeine Phosphate (Tylenol #3) 2 tab PO Q4H PRN PRN Reason: Moderate Pain (4-6) Last Admin: 10/22/19 06:38 Dose: 2 tab Aspirin (Ecotrin) 325 mg PO DAILY [facility] Last Admin: 10/22/19 08:52 Dose: 325 mg Atorvastatin Calcium (Lipitor) 40 mg PO HS [facility] Last Admin: 10/21/19 20:51 Dose: 40 mg Clonidine (Catapres) 0.1 mg PO BID PRN PRN Reason: SBP > 160 use second Dextrose/Water (Dextrose 50%) 25 gm SLOW IVP PRN PRN PRN Reason: Hypoglycemia Duloxetine HCl (Cymbalta) 60 mg PO DAILY [facility] Last Admin: 10/22/19 08:52 Dose: 60 mg Gabapentin (Neurontin) 300 mg PO DAILY [facility] Last Admin: 10/22/19 08:52 Dose: 300 mg Glucagon (Glucagon) 1 mg IM PRN PRN PRN Reason: Hypoglycemia Hydralazine HCl (Apresoline) 10 mg SLOW IVP Q4H PRN PRN Reason: SBP>180 Last Admin: 10/18/19 22:21 Dose: 10 mg Hydralazine HCl (Apresoline) 10 mg SLOW IVP Q6H PRN PRN Reason: SBP GREATER THAN 160 Hydralazine HCl (Apresoline) 25 mg PO TID [facility] Last Admin: 10/22/19 15:27 Dose: 25 mg Dextrose/Water (D5w) 1,000 mls @ 0 mls/hr IV .Q0M PRN PRN Reason: Hypoglycemia Insulin Glargine 80 units/ (Miscellaneous Medication) 0.8 mls @ 0 mls/hr SC [facility] Last Admin: 10/21/19 20:52 Dose: Not Given Promethazine HCl 12.5 mg/ (Sodium Chloride) 50.5 mls @ 202 mls/hr IVPB Q6H PRN PRN Reason: Nausea/vomiting use second Last Admin: 10/22/19 06:39 Dose: 50.5 mls Insulin Human Lispro (Humalog) 0 units SC .MILD SLIDING SCALE PRN PRN Reason: Mild Correctional Scale Last Admin: 10/14/19 17:50 Dose: 3 unit Isosorbide Dinitrate (Isordil) 20 mg PO TID [facility] Last Admin: 10/22/19 15:27 Dose: 20 mg Labetalol HCl (Normodyne) 20 mg SLOW IVP Q4H PRN PRN Reason: SBP > 160 use third Metoprolol Tartrate (Lopressor) 50 mg PO BID [facility] Last Admin: 10/22/19 08:53 Dose: 50 mg Nitroglycerin (Nitrostat) 0.4 mg SL Q5MIN PRN PRN Reason: Chest Pain Last Admin: 10/22/19 01:52 Dose: 0.4 mg Ondansetron HCl (Zofran Odt) 4 mg PO Q6H PRN PRN Reason: Nausea/Vomiting Last Admin: 10/19/19 20:41 Dose: 4 mg Ranolazine (Ranexa) 500 mg PO BID [facility] Last Admin: 10/22/19 08:54 Dose: 500 mg Sevelamer Carbonate (Renvela) 800 mg PO TID-[facility] Last Admin: 10/22/19 15:27 Dose: 800 mg Sodium Bicarbonate (Bicarbonate, Sodium) 650 mg PO BID [facility] Last Admin: 10/22/19 08:54 Dose: 650 mg Sodium Chloride (Flush - Normal Saline) 10 ml IVF Q12HR [facility] Last Admin: 10/22/19 08:55 Dose: 10 ml Tramadol HCl (Ultram) 50 mg PO Q12H PRN PRN Reason: Pain Last Admin: 10/18/19 15:55 Dose: 50 mg Vital Signs & Weight: Vital Signs Temp Pulse Resp BP Pulse Ox 10/22/19 15:23 97.7 F 71 16 148/78 H 94 L 10/22/19 12:10 97.8 F 73 18 137/75 96 10/22/19 07:32 97.7 F 73 18 136/62 94 L 10/22/19 04:00 97.6 F 71 18 152/75 H 95 Weight 317 lb 8 oz - Physical Exam General: alert & oriented x3 HEENT: mucus membranes moist Neck: supple neck Cardiac: regular rate and rhythm, S1/S2 Lungs: no wheeze, rales, rhonchi, decreased breath sounds Neuro: cranial nerve 2-12 intact Extremities: no edema - Labs Result Diagrams: 10/16/19 03:33 10/22/19 05:46 Troponin/CKMB CK-MB (CK-2) 2.3 ng/mL (0-6.6) 10/22/19 05:46 Troponin I 0.040 ng/mL (< 0.028) H 10/22/19 08:05 - Telemetry Sinus rhythms and dysrhythmias: sinus rhythm - Assessment/Plan Assessment/Plan: 1. CAD with s/p LHC on with 40% stenosis in mid LAD, 90% in distal LAD, and 99% in Lt Cx after DM1 - 1 episode of CP last night and 3 NTG were given to the pt. Plan for PTCA to Lt Cx with stable renal function; 2. KAY on CKD - managed by Dr Hernandez (Appreciate Dr Hernandez's input!) 3. HTN - stable with current meds 4. Insulin-dependent DM - on D5 @ 50ml/h; managed by PCP 5. depression - 6. Anemia - unchanged 7. Sleep Apnea - the pt stated she will have Sleep study as outpt once she has insurance from Nov reviewed Pt. seen and eval. by me. I agree with the A/P by the QUALITY NURSE. Chest clear. RRR. Consider ptca/stent to the L-ciec. if renal function improves.
[2019-10-22] MEDS: Ondansetron ODT 4 MG TAB PO PRN (18:13)
[2019-10-22] MEDS: Atorvastatin Calcium 40 MG TAB PO SCH (19:50)
--- NOTE | 2019-10-22 20:25 | PDOC.HOSPP ---
- Subjective Encounter Date: 10/22/19 Encounter Time: 10:20 Subjective: Pt seen for followup re: chest pain. Nausea+ - Objective Vital Signs & Weight: Vital Signs (12 hours) Temp Pulse Resp BP BP Pulse Ox 10/22/19 19:50 77 139/71 10/22/19 15:23 97.7 F 71 16 148/78 H 94 L 10/22/19 12:10 97.8 F 73 18 137/75 96 Weight Weight 317 lb 8 oz I&O: 10/21/19 10/22/19 10/23/19 06:59 06:59 06:59 Intake Total 20796 650 Balance 20797 650 Result Diagrams: 10/16/19 03:33 10/22/19 05:46 Additional Labs: Accuchecks 10/22/19 10/22/19 10/22/19 16:59 10:35 05:39 POC Glucose 116 H 111 H 124 H 10/21/19 20:50 POC Glucose 144 H Labs and MARs reviewed by me EKG Reviewed by me: Yes (Tele: NSR) Hospitalist ROS - Review of Systems Cardiovascular: reports: other. denies: chest pain, palpitations, orthopnea, paroxysmal noc. dyspnea, edema, light headedness Gastrointestinal: denies: nausea, vomiting, abdominal pain, diarrhea, constipation, melena, hematochezia - Medication Medications: Active Medications Generic Name Dose Route Start Last Admin Trade Name Freq PRN Reason Stop Dose Admin Acetaminophen/Codeine Phosphate 1 tab 10/18/19 15:22 10/22/19 18:14 Tylenol #3 PO 1 tab Q4H PRN Administration Mild Pain (1-3) Acetaminophen/Codeine Phosphate 2 tab 10/18/19 15:22 10/22/19 06:38 Tylenol #3 PO 2 tab Q4H PRN Administration Moderate Pain (4-6) Aspirin 325 mg 10/14/19 09:00 10/22/19 08:52 Ecotrin PO 325 mg DAILY PANCHO Administration Atorvastatin Calcium 40 mg 10/18/19 21:00 10/22/19 19:50 Lipitor PO 40 mg HS PANCHO Administration Duloxetine HCl 60 mg 10/14/19 09:00 10/22/19 08:52 Cymbalta PO 60 mg DAILY PANCHO Administration Gabapentin 300 mg 10/16/19 09:00 10/22/19 08:52 Neurontin PO 300 mg DAILY PANCHO Administration Hydralazine HCl 10 mg 10/18/19 21:56 10/18/19 22:21 Apresoline SLOW IVP 10 mg Q4H PRN Administration SBP>180 Hydralazine HCl 25 mg 10/20/19 09:00 10/22/19 19:50 Apresoline PO 25 mg TID PANCHO Administration Insulin Glargine 80 units/ 0.8 mls @ 0 mls/hr 10/14/19 21:00 10/21/19 20:52 Miscellaneous Medication SC Not Given HS [facility] Promethazine HCl 12.5 mg/ 50.5 mls @ 202 mls/hr 10/18/19 23:29 10/22/19 06:39 Sodium Chloride IVPB 50.5 mls Q6H PRN Administration Nausea/vomiting use second Insulin Human Lispro 0 units 10/14/19 08:37 10/14/19 17:50 Humalog SC 3 unit .MILD SLIDING SCALE PRN Administration Mild Correctional Scale Isosorbide Dinitrate 20 mg 10/21/19 09:00 10/22/19 19:50 Isordil PO 20 mg TID [facility] Administration Metoprolol Tartrate 50 mg 10/20/19 07:33 10/22/19 19:50 Lopressor PO 50 mg BID [facility] Administration Nitroglycerin 0.4 mg 10/18/19 15:22 10/22/19 01:52 Nitrostat SL 0.4 mg Q5MIN PRN Administration Chest Pain Ondansetron HCl 4 mg 10/14/19 12:31 10/22/19 18:13 Zofran Odt PO 4 mg Q6H PRN Administration Nausea/Vomiting Ranolazine 500 mg 10/18/19 21:00 10/22/19 19:49 Ranexa PO 500 mg BID PANCHO Administration Sevelamer Carbonate 800 mg 10/22/19 12:00 10/22/19 15:27 Renvela PO 800 mg TID-[facility] PANCHO Administration Sodium Bicarbonate 650 mg 10/15/19 21:00 10/22/19 19:49 Bicarbonate, Sodium PO 650 mg BID [facility] Administration Sodium Chloride 10 ml 10/14/19 09:00 10/22/19 19:51 Flush - Normal Saline IVF Not Given Q12HR [facility] Tramadol HCl 50 mg 10/18/19 11:45 10/18/19 15:55 Ultram PO 50 mg Q12H PRN Administration Pain - Exam General - other findings: Morbid obesity Eye: anicteric sclera ENT: moist mucosa Heart: RRR Respiratory: CTAB Gastrointestinal: soft, non-tender, distended Skin: no lesions, no rashes Psychiatric: normal affect, normal behavior Hosp A/P - Plan - Assessment (1) Chest pain Code(s): R07.9 - CHEST PAIN, UNSPECIFIED Status: Acute Qualifiers: Chest pain type: precordial pain Qualified Code(s): R07.2 - Precordial pain (2) Acute on chronic stage 4 renal failure Status: Chronic (3) HTN (hypertension) Code(s): I10 - ESSENTIAL (PRIMARY) HYPERTENSION Status: Chronic Qualifiers: Hypertension type: essential hypertension Qualified Code(s): I10 - Essential (primary) hypertension (4) Hyperlipidemia Code(s): E78.5 - HYPERLIPIDEMIA, UNSPECIFIED Status: Chronic Qualifiers: Hyperlipidemia type: unspecified Qualified Code(s): E78.5 - Hyperlipidemia , unspecified (5) Anxiety and depression Code(s): F41.8 - OTHER SPECIFIED ANXIETY DISORDERS Status: Chronic (6) Diabetes mellitus type II, uncontrolled Code(s): E11.65 - TYPE 2 DIABETES MELLITUS WITH HYPERGLYCEMIA Status: Chronic (6) Morbid obesity Status: Chronic - Plan Repeat cath when creatinine improves. Medical management of CAD for now. Creatinine improved to 4.84 today. Depression mild, stable.
[2019-10-22] MEDS: Insulin Glargine 80 UNITS in Pre-Filled Syringe 1 EACH SC SCH (23:53)
[2019-10-23 04:10] LABS: #Basophils 0.1 thou/uL (0.0-0.2); #Eosinphils 0.8 thou/uL (0.0-0.7); #Lymphocytes 2.1 thou/uL (1.20-3.40); #Monocytes 0.5 thou/uL (0.11-0.59); #Neutrophils 5.2 thou/uL (1.40-6.50); %Basophils 0.9 % (0.0-1.0); %Eosinophils 8.8 % (0.0-10.0); %Lymphocytes 24.5 % (21.0-51.0); %Monocytes 5.7 % (0.0-10.0); %Neutrophils 60.1 % (42.0-75.0); Hemoglobin 10.6 g/dL (12.0-16.0); Mean Corpuscular HGB CONC 31.3 g/dL (32.0-36.0); Mean Corpuscular Hemoglobin 29.5 pg (27.0-31.0); Mean Corpuscular Volume 94.4 fL (78.0-98.0); Mean Platelet Volume 7.7 fL (7.4-10.4); Platelet Count 265 thou/uL (130-400); RBC Distribution Width 12.9 % (11.5-14.5); Red Blood Cell (RBC) Count 3.58 mill/uL (4.20-5.40); White Blood Cell (WBC) Count 8.7 thou/uL (4.8-10.8)
[2019-10-23 04:29] LABS: Anion Gap 14 mmol/L (10-20); BUN (Urea Nitrogen) 58 mg/dL (7.0-18.7); BUN/Creatinine Ratio 12.53; Calc. Creatinine Clearance 34 mL/min (70-130); Calcium 8.9 mg/dL (7.8-10.44); Carbon Dioxide 23 mmol/L (22-29); Chloride 107 mmol/L (98-107); Estimated GFR-MDRD 10; Glucose 129 mg/dL (70-105); Phosphorus 5.2 mg/dL (2.3-4.7); Potassium 5.4 mmol/L (3.5-5.1); Sodium 139 mmol/L (136-145)
[2019-10-23] MEDS: Sodium Chloride 0.9% 1,000 ML IV SCH ×2 (07:20→16:28)
[2019-10-23] MEDS: Promethazine HCl 12.5 MG in Sodium Chloride 0.9% 50 ML IVPB PRN ×3 (07:20→23:46)
[2019-10-23] MEDS: Acetaminophen/Codeine 30-300mg Tablet PO PRN ×3 (07:21→23:07)
--- NOTE | 2019-10-23 07:29 | PRG ---
DATE OF SERVICE: 10/23/2019 SUBJECTIVE: Ms. Wilkes is a 48-year-old white female, being followed up by the Renal Service for her dye-induced acute tubular necrosis. Renal function is slowly improving. She denies any chest pain or shortness of breath this morning. Creatinine slightly improved, but it is still not dramatically changed from baseline. My bias is now to start her on a gentle volume repletion, normal saline 100 mL/h. We will observe if she will tolerate this. She is not complaining of any shortness of breath. OBJECTIVE: VITAL SIGNS: Blood pressure is 142/72, heart rate 76, respiratory rate 18, temperature 97.4, and O2 saturation 92%. GENERAL: Awake, alert, supine, comfortable, obese, not in distress. SKIN: Adequate turgor. HEENT: Pinkish conjunctivae. Anicteric sclerae. NECK: No neck mass. No carotid bruits. No JVD. CHEST: No deformities. LUNGS: Clear breath sounds. HEART: Normal sinus rhythm. No murmur. No gallops. No rubs. ABDOMEN: Globular, soft, and nontender. No masses. EXTREMITIES: No edema. The patient is status post left BKA. MEDICATIONS: Medications of October 23, 2019, were reviewed. LABORATORY DATA: Laboratories of October 23, 2019; white count 8.7, hemoglobin 10.6. Sodium 139, potassium 5.4, chloride 107, carbon dioxide 23, BUN 58, creatinine 4.63, GFR 10 mL/minute, glucose 129, and phosphorus is 5.2. ASSESSMENT AND PLAN: 1. Acute kidney injury secondary to presumed acute tubular necrosis - dye induced. Renal function minimally improved. My bias is to empirically challenge her with normal saline at 100 mL/h. Observe for possible volume overload. No indication for any dialytic intervention. 2. Hyperphosphatemia. The patient has been started on Renvela 800 mg p.o. t.i.d. 3. Type 2 diabetes mellitus, managed by the PCP. Recheck basic metabolic panel and CBC in a.m. Job ID: [id number]
[2019-10-23] MEDS: Isosorbide Dinitrate 20 MG TAB PO SCH ×3 (08:32→20:44)
[2019-10-23] MEDS: Metoprolol Tartrate 100 MG TAB PO SCH ×2 (08:32→20:45)
[2019-10-23] MEDS: Gabapentin 300 MG CAP PO SCH (08:32)
[2019-10-23] MEDS: Aspirin 325 mg Enteric Coated Tablet PO SCH (08:32)
[2019-10-23] MEDS: DULoxetine 60 MG CAP PO SCH (08:32)
[2019-10-23] MEDS: Sevelamer Carbonate 800 MG TAB PO SCH ×3 (08:32→16:28)
[2019-10-23] MEDS: hydrALAZINE 25 MG TAB PO SCH ×3 (08:34→20:45)
[2019-10-23] MEDS: Sodium Bicarbonate Tab 325 MG TAB PO SCH ×2 (08:34→20:44)
--- NOTE | 2019-10-23 12:37 | PDOC.CPN ---
- Subjective Date: 10/23/19 Time: 12:39 Interval history: The pt seen and examined. No overnight events. No cardiac complaints. - Objective Allergies/Adverse Reactions: Allergies Allergy/AdvReac Type Severity Reaction Status Date / Time codeine AdvReac Verified 06/05/17 03:31 Visit Medications: Current Medications Acetaminophen/Codeine Phosphate (Tylenol #3) 1 tab PO Q4H PRN PRN Reason: Mild Pain (1-3) Last Admin: 10/22/19 18:14 Dose: 1 tab Acetaminophen/Codeine Phosphate (Tylenol #3) 2 tab PO Q4H PRN PRN Reason: Moderate Pain (4-6) Last Admin: 10/23/19 07:21 Dose: 2 tab Aspirin (Ecotrin) 325 mg PO DAILY [facility] Last Admin: 10/23/19 08:32 Dose: 325 mg Atorvastatin Calcium (Lipitor) 40 mg PO HS [facility] Last Admin: 10/22/19 19:50 Dose: 40 mg Clonidine (Catapres) 0.1 mg PO BID PRN PRN Reason: SBP > 160 use second Dextrose/Water (Dextrose 50%) 25 gm SLOW IVP PRN PRN PRN Reason: Hypoglycemia Duloxetine HCl (Cymbalta) 60 mg PO DAILY [facility] Last Admin: 10/23/19 08:32 Dose: 60 mg Gabapentin (Neurontin) 300 mg PO DAILY [facility] Last Admin: 10/23/19 08:32 Dose: 300 mg Glucagon (Glucagon) 1 mg IM PRN PRN PRN Reason: Hypoglycemia Hydralazine HCl (Apresoline) 10 mg SLOW IVP Q4H PRN PRN Reason: SBP>180 Last Admin: 10/18/19 22:21 Dose: 10 mg Hydralazine HCl (Apresoline) 10 mg SLOW IVP Q6H PRN PRN Reason: SBP GREATER THAN 160 Hydralazine HCl (Apresoline) 25 mg PO TID [facility] Last Admin: 10/23/19 08:34 Dose: 25 mg Dextrose/Water (D5w) 1,000 mls @ 0 mls/hr IV .Q0M PRN PRN Reason: Hypoglycemia Insulin Glargine 80 units/ (Miscellaneous Medication) 0.8 mls @ 0 mls/hr SC [facility] Last Admin: 10/22/19 23:53 Dose: Not Given Promethazine HCl 12.5 mg/ (Sodium Chloride) 50.5 mls @ 202 mls/hr IVPB Q6H PRN PRN Reason: Nausea/vomiting use second Last Admin: 10/23/19 07:20 Dose: 50.5 mls Sodium Chloride (Normal Saline 0.9%) 1,000 mls @ 100 mls/hr IV .Q10H [facility] Last Admin: 10/23/19 07:20 Dose: 1,000 mls Insulin Human Lispro (Humalog) 0 units SC .MILD SLIDING SCALE PRN PRN Reason: Mild Correctional Scale Last Admin: 10/14/19 17:50 Dose: 3 unit Isosorbide Dinitrate (Isordil) 20 mg PO TID [facility] Last Admin: 10/23/19 08:32 Dose: 20 mg Labetalol HCl (Normodyne) 20 mg SLOW IVP Q4H PRN PRN Reason: SBP > 160 use third Metoprolol Tartrate (Lopressor) 50 mg PO BID [facility] Last Admin: 10/23/19 08:32 Dose: 50 mg Nitroglycerin (Nitrostat) 0.4 mg SL Q5MIN PRN PRN Reason: Chest Pain Last Admin: 10/22/19 01:52 Dose: 0.4 mg Ondansetron HCl (Zofran Odt) 4 mg PO Q6H PRN PRN Reason: Nausea/Vomiting Last Admin: 10/22/19 18:13 Dose: 4 mg Ranolazine (Ranexa) 500 mg PO BID [facility] Last Admin: 10/23/19 08:34 Dose: 500 mg Sevelamer Carbonate (Renvela) 800 mg PO TID[facility] Last Admin: 10/23/19 11:06 Dose: 800 mg Sodium Bicarbonate (Bicarbonate, Sodium) 650 mg PO BID [facility] Last Admin: 10/23/19 08:34 Dose: 650 mg Sodium Chloride (Flush - Normal Saline) 10 ml IVF Q12HR [facility] Last Admin: 10/23/19 08:34 Dose: 10 ml Tramadol HCl (Ultram) 50 mg PO Q12H PRN PRN Reason: Pain Last Admin: 10/18/19 15:55 Dose: 50 mg Vital Signs & Weight: Vital Signs Temp Pulse Resp BP Pulse Ox 10/23/19 11:04 97.6 F 69 16 147/78 H 94 L 10/23/19 07:16 97.8 F 76 18 179/89 H 92 L 10/23/19 03:25 97.4 F L 76 18 142/72 H 92 L Weight 320 lb 6.4 oz - Physical Exam General: alert & oriented x3 HEENT: mucus membranes moist Neck: supple neck Cardiac: regular rate and rhythm, S1/S2 Lungs: decreased breath sounds Neuro: cranial nerve 2-12 intact Extremities: no edema - Labs Result Diagrams: 10/23/19 03:54 10/23/19 03:54 Troponin/CKMB CK-MB (CK-2) 2.3 ng/mL (0-6.6) 10/22/19 05:46 Troponin I 0.040 ng/mL (< 0.028) H 10/22/19 08:05 - Telemetry Sinus rhythms and dysrhythmias: sinus rhythm - Assessment/Plan Assessment/Plan: 1. CAD with s/p LHC on with 40% stenosis in mid LAD, 90% in distal LAD, and 99% in Lt Cx after DM1 - Plan for PTCA/stent to Lt Cx with stable renal function; On Ranexa 500mg BID, Metoprolol, ASA, and statin; 2. KAY on CKD -on NS IV; managed by telehealth nurse educator 3. HTN - stable with current meds 4. Insulin-dependent DM - managed by PCP 5. depression - 6. Anemia - unchanged 7. Sleep Apnea - the pt stated she will have Sleep study as outpt once she has insurance from November. 8. Hx of Lt BKA MAR reviewed Pt. seen and eval. by me. I agree with the A/P by the DISK GRINDER. No further chest pain until this PM. Relieved by NTG. Discussed possible ptca/stent vs medical management after the renal function improves and is stable. aide
--- NOTE | 2019-10-23 15:46 | PDOC.HOSPP ---
- Subjective Encounter Date: 10/23/19 Encounter Time: 11:30 Subjective: pt up in bed no complains - Objective Vital Signs & Weight: Vital Signs (12 hours) Temp Pulse Resp BP Pulse Ox 10/23/19 15:15 97.8 F 77 18 153/82 H 92 L 10/23/19 11:04 97.6 F 69 16 147/78 H 94 L 10/23/19 07:16 97.8 F 76 18 179/89 H 92 L Weight Weight 320 lb 6.4 oz I&O: 10/22/19 10/23/19 10/24/19 06:59 06:59 06:59 Intake Total 3637 1187 Balance 2277 1187 Result Diagrams: 10/23/19 03:54 10/23/19 03:54 Additional Labs: Accuchecks 10/23/19 10/23/19 10/22/19 11:01 05:44 20:43 POC Glucose 141 H 180 H 205 H 10/22/19 16:59 POC Glucose 116 H Hospitalist ROS - Review of Systems Cardiovascular: denies: chest pain, palpitations, orthopnea, paroxysmal noc. dyspnea, edema, light headedness, other Gastrointestinal: denies: nausea, vomiting, abdominal pain, diarrhea, constipation, melena, hematochezia, other Genitourinary: denies: dysuria, frequency, incontinence, hematuria, retention, other - Medication Medications: Active Medications Generic Name Dose Route Start Last Admin Trade Name Freq PRN Reason Stop Dose Admin Acetaminophen/Codeine Phosphate 1 tab 10/18/19 15:22 10/22/19 18:14 Tylenol #3 PO 1 tab Q4H PRN Administration Mild Pain (1-3) Acetaminophen/Codeine Phosphate 2 tab 10/18/19 15:22 10/23/19 07:21 Tylenol #3 PO 2 tab Q4H PRN Administration Moderate Pain (4-6) Aspirin 325 mg 10/14/19 09:00 10/23/19 08:32 Ecotrin PO 325 mg DAILY PANCHO Administration Atorvastatin Calcium 40 mg 10/18/19 21:00 10/22/19 19:50 Lipitor PO 40 mg HS PANCHO Administration Duloxetine HCl 60 mg 10/14/19 09:00 10/23/19 08:32 Cymbalta PO 60 mg DAILY PANCHO Administration Gabapentin 300 mg 10/16/19 09:00 10/23/19 08:32 Neurontin PO 300 mg DAILY PANCHO Administration Hydralazine HCl 10 mg 10/18/19 21:56 10/18/19 22:21 Apresoline SLOW IVP 10 mg Q4H PRN Administration SBP>180 Hydralazine HCl 25 mg 10/20/19 09:00 10/23/19 15:18 Apresoline PO 25 mg TID PANCHO Administration Insulin Glargine 80 units/ 0.8 mls @ 0 mls/hr 10/14/19 21:00 10/22/19 23:53 Miscellaneous Medication SC Not Given HS [facility] Promethazine HCl 12.5 mg/ 50.5 mls @ 202 mls/hr 10/18/19 23:29 10/23/19 07:20 Sodium Chloride IVPB 50.5 mls Q6H PRN Administration Nausea/vomiting use second Sodium Chloride 1,000 mls @ 100 mls/hr 10/23/19 07:15 10/23/19 07:20 Normal Saline 0.9% IV 1,000 mls .Q10H PANCHO Administration Insulin Human Lispro 0 units 10/14/19 08:37 10/14/19 17:50 Humalog SC 3 unit .MILD SLIDING SCALE PRN Administration Mild Correctional Scale Isosorbide Dinitrate 20 mg 10/21/19 09:00 10/23/19 15:18 Isordil PO 20 mg TID PANCHO Administration Metoprolol Tartrate 50 mg 10/20/19 07:33 10/23/19 08:32 Lopressor PO 50 mg BID PANCHO Administration Nitroglycerin 0.4 mg 10/18/19 15:22 10/22/19 01:52 Nitrostat SL 0.4 mg Q5MIN PRN Administration Chest Pain Ondansetron HCl 4 mg 10/14/19 12:31 10/22/19 18:13 Zofran Odt PO 4 mg Q6H PRN Administration Nausea/Vomiting Ranolazine 500 mg 10/18/19 21:00 10/23/19 08:34 Ranexa PO 500 mg BID PANCHO Administration Sevelamer Carbonate 800 mg 10/22/19 12:00 10/23/19 11:06 Renvela PO 800 mg TID-WM PANCHO Administration Sodium Bicarbonate 650 mg 10/15/19 21:00 10/23/19 08:34 Bicarbonate, Sodium PO 650 mg BID PANCHO Administration Sodium Chloride 10 ml 10/14/19 09:00 10/23/19 08:34 Flush - Normal Saline IVF 10 ml Q12HR PANCHO Administration Tramadol HCl 50 mg 10/18/19 11:45 10/18/19 15:55 Ultram PO 50 mg Q12H PRN Administration Pain - Exam Neck: negative: supple, symmetric, no JVD, no thyromegaly, no lymphadenopathy, no carotid bruit, JVD Heart: negative: RRR, no murmur, no gallops, no rubs, normal peripheral pulses, irregular, diminshed peripheral pulses, murmur present, II/IV, III/IV Respiratory: negative: CTAB, no wheezes, no rales, no ronchi, normal chest expansion, no tachypnea, normal percussion, rales, rhonchi, tachypneic, wheezes Gastrointestinal: negative: soft, non-tender, non-distended, normal bowel sounds , no palpable masses, no hepatomegaly, no splenomegaly, no bruit, no guarding, no rigidity, tender to palpation, distended, diminished bowl sounds, voluntary guarding Hosp A/P - Plan (1) Chest pain Code(s): R07.9 - CHEST PAIN, UNSPECIFIED Status: Acute Qualifiers: Chest pain type: precordial pain Qualified Code(s): R07.2 - Precordial pain (2) Acute on chronic stage 4 renal failure Status: Chronic (3) HTN (hypertension) Code(s): I10 - ESSENTIAL (PRIMARY) HYPERTENSION Status: Chronic Qualifiers: Hypertension type: essential hypertension Qualified Code(s): I10 - Essential (primary) hypertension (4) Hyperlipidemia Code(s): E78.5 - HYPERLIPIDEMIA, UNSPECIFIED Status: Chronic Qualifiers: Hyperlipidemia type: unspecified Qualified Code(s): E78.5 - Hyperlipidemia , unspecified (5) Anxiety and depression Code(s): F41.8 - OTHER SPECIFIED ANXIETY DISORDERS Status: Chronic (6) Diabetes mellitus type II, uncontrolled Code(s): E11.65 - TYPE 2 DIABETES MELLITUS WITH HYPERGLYCEMIA Status: Chronic (6) Morbid obesity Status: Chronic - Plan Repeat cath when creatinine improves. Medical management of CAD for now. Creatinine improved to 4.84 today. Depression mild, stable. 2/5 creatinine 4.6
[2019-10-23] MEDS: Nitroglycerin 0.4 MG TAB (25 Tab Bottle) SL PRN ×2 (16:22→16:27)
[2019-10-23] MEDS: Nitroglycerin 2% Ointment 1 INCH/1 GM Packet TOP SCH ×2 (17:39→23:08)
[2019-10-23] MEDS: Atorvastatin Calcium 40 MG TAB PO SCH (20:45)
[2019-10-23] MEDS: Insulin Glargine 80 UNITS in Pre-Filled Syringe 1 EACH SC SCH (21:35)
[2019-10-24] MEDS: Sodium Chloride 0.9% 1,000 ML IV SCH ×3 (04:33→20:59)
[2019-10-24 04:40] LABS: #Basophils 0.1 thou/uL (0.0-0.2); #Eosinphils 0.8 thou/uL (0.0-0.7); #Lymphocytes 2.7 thou/uL (1.20-3.40); #Monocytes 0.5 thou/uL (0.11-0.59); #Neutrophils 4.3 thou/uL (1.40-6.50); %Basophils 1.3 % (0.0-1.0); %Eosinophils 9.6 % (0.0-10.0); %Lymphocytes 32.4 % (21.0-51.0); %Monocytes 6.2 % (0.0-10.0); %Neutrophils 50.5 % (42.0-75.0); Mean Corpuscular HGB CONC 30.8 g/dL (32.0-36.0); Mean Corpuscular Hemoglobin 29.3 pg (27.0-31.0); Mean Corpuscular Volume 95.1 fL (78.0-98.0); Mean Platelet Volume 7.8 fL (7.4-10.4); Platelet Count 247 thou/uL (130-400); RBC Distribution Width 12.9 % (11.5-14.5); Red Blood Cell (RBC) Count 3.41 mill/uL (4.20-5.40); White Blood Cell (WBC) Count 8.4 thou/uL (4.8-10.8)
[2019-10-24 05:08] LABS: Anion Gap 11 mmol/L (10-20); BUN (Urea Nitrogen) 52 mg/dL (7.0-18.7); BUN/Creatinine Ratio 12.35; Calc. Creatinine Clearance 37 mL/min (70-130); Calcium 8.7 mg/dL (7.8-10.44); Carbon Dioxide 26 mmol/L (22-29); Chloride 109 mmol/L (98-107); Estimated GFR-MDRD 11; Glucose 133 mg/dL (70-105); Phosphorus 4.7 mg/dL (2.3-4.7); Sodium 141 mmol/L (136-145)
[2019-10-24] MEDS: Nitroglycerin 2% Ointment 1 INCH/1 GM Packet TOP SCH (05:26)
[2019-10-24] MEDS: Acetaminophen/Codeine 30-300mg Tablet PO PRN ×3 (05:26→20:46)
[2019-10-24] MEDS: Promethazine HCl 12.5 MG in Sodium Chloride 0.9% 50 ML IVPB PRN ×3 (06:18→20:45)
[2019-10-24] MEDS: DULoxetine 60 MG CAP PO SCH (08:36)
[2019-10-24] MEDS: Aspirin 325 mg Enteric Coated Tablet PO SCH (08:36)
[2019-10-24] MEDS: Sevelamer Carbonate 800 MG TAB PO SCH ×3 (08:36→17:44)
[2019-10-24] MEDS: Isosorbide Dinitrate 20 MG TAB PO SCH ×3 (08:37→20:46)
[2019-10-24] MEDS: hydrALAZINE 25 MG TAB PO SCH ×3 (08:37→20:46)
[2019-10-24] MEDS: Gabapentin 300 MG CAP PO SCH (08:37)
[2019-10-24] MEDS: Metoprolol Tartrate 100 MG TAB PO SCH ×2 (08:37→20:46)
[2019-10-24] MEDS: Sodium Bicarbonate Tab 325 MG TAB PO SCH ×2 (08:38→20:45)
[2019-10-24] MEDS ORDERED: Amlodipine 5 MG TAB PO SCH (09:15)
--- NOTE | 2019-10-24 09:20 | PDOC.CPN ---
- Subjective Date: 10/24/19 Time: 09:20 Interval history: The pt seen and examined. No overnight events. No cardiac complaints. - Objective Allergies/Adverse Reactions: Allergies Allergy/AdvReac Type Severity Reaction Status Date / Time codeine AdvReac Verified 06/05/17 03:31 Visit Medications: Current Medications Acetaminophen/Codeine Phosphate (Tylenol #3) 1 tab PO Q4H PRN PRN Reason: Mild Pain (1-3) Last Admin: 10/22/19 18:14 Dose: 1 tab Acetaminophen/Codeine Phosphate (Tylenol #3) 2 tab PO Q4H PRN PRN Reason: Moderate Pain (4-6) Last Admin: 10/24/19 05:26 Dose: 2 tab Amlodipine Besylate (Norvasc) 5 mg PO ONE [facility] Amlodipine Besylate (Norvasc) 5 mg PO DAILY [facility] Aspirin (Ecotrin) 325 mg PO DAILY [facility] Last Admin: 10/24/19 08:36 Dose: 325 mg Atorvastatin Calcium (Lipitor) 40 mg PO HS [facility] Last Admin: 10/23/19 20:45 Dose: 40 mg Clonidine (Catapres) 0.1 mg PO BID PRN PRN Reason: SBP > 160 use second Dextrose/Water (Dextrose 50%) 25 gm SLOW IVP PRN PRN PRN Reason: Hypoglycemia Duloxetine HCl (Cymbalta) 60 mg PO DAILY [facility] Last Admin: 10/24/19 08:36 Dose: 60 mg Gabapentin (Neurontin) 300 mg PO DAILY [facility] Last Admin: 10/24/19 08:37 Dose: 300 mg Glucagon (Glucagon) 1 mg IM PRN PRN PRN Reason: Hypoglycemia Hydralazine HCl (Apresoline) 10 mg SLOW IVP Q4H PRN PRN Reason: SBP>180 Last Admin: 10/18/19 22:21 Dose: 10 mg Hydralazine HCl (Apresoline) 10 mg SLOW IVP Q6H PRN PRN Reason: SBP GREATER THAN 160 Hydralazine HCl (Apresoline) 25 mg PO TID [facility] Last Admin: 10/24/19 08:37 Dose: 25 mg Dextrose/Water (D5w) 1,000 mls @ 0 mls/hr IV .Q0M PRN PRN Reason: Hypoglycemia Insulin Glargine 80 units/ (Miscellaneous Medication) 0.8 mls @ 0 mls/hr SC HS [facility] Last Admin: 10/23/19 21:35 Dose: Not Given Promethazine HCl 12.5 mg/ (Sodium Chloride) 50.5 mls @ 202 mls/hr IVPB Q6H PRN PRN Reason: Nausea/vomiting use second Last Admin: 10/24/19 06:18 Dose: 50.5 mls Sodium Chloride (Normal Saline 0.9%) 1,000 mls @ 100 mls/hr IV .Q10H [facility] Last Admin: 10/24/19 04:33 Dose: 1,000 mls Insulin Human Lispro (Humalog) 0 units SC .MILD SLIDING SCALE PRN PRN Reason: Mild Correctional Scale Last Admin: 10/14/19 17:50 Dose: 3 unit Isosorbide Dinitrate (Isordil) 20 mg PO TID [facility] Last Admin: 10/24/19 08:37 Dose: 20 mg Labetalol HCl (Normodyne) 20 mg SLOW IVP Q4H PRN PRN Reason: SBP > 160 use third Metoprolol Tartrate (Lopressor) 50 mg PO BID [facility] Last Admin: 10/24/19 08:37 Dose: 50 mg Nitroglycerin (Nitrostat) 0.4 mg SL Q5MIN PRN PRN Reason: Chest Pain Last Admin: 10/23/19 16:27 Dose: 0.4 mg Ondansetron HCl (Zofran Odt) 4 mg PO Q6H PRN PRN Reason: Nausea/Vomiting Last Admin: 10/22/19 18:13 Dose: 4 mg Ranolazine (Ranexa) 1,000 mg PO BID [facility] Last Admin: 10/24/19 08:37 Dose: 1,000 mg Sevelamer Carbonate (Renvela) 800 mg PO TID[facility] Last Admin: 10/24/19 08:36 Dose: 800 mg Sodium Bicarbonate (Bicarbonate, Sodium) 650 mg PO BID [facility] Last Admin: 10/24/19 08:38 Dose: 650 mg Sodium Chloride (Flush - Normal Saline) 10 ml IVF Q12HR [facility] Last Admin: 10/24/19 08:38 Dose: Not Given Tramadol HCl (Ultram) 50 mg PO Q12H PRN PRN Reason: Pain Last Admin: 10/18/19 15:55 Dose: 50 mg Vital Signs & Weight: Vital Signs Temp Pulse Resp BP BP Pulse Ox 10/24/19 08:37 83 168/84 H 10/24/19 08:31 98.7 F 83 18 168/84 H 95 10/24/19 03:09 98.1 F 81 18 136/65 94 L 10/24/19 00:00 76 161/78 H Weight 320 lb 11.2 oz - Physical Exam General: alert & oriented x3 HEENT: mucus membranes moist Neck: supple neck Cardiac: regular rate and rhythm, S1/S2 Lungs: clear to auscultation, decreased breath sounds Extremities: no edema - Labs Result Diagrams: 10/24/19 04:11 10/24/19 04:11 Troponin/CKMB CK-MB (CK-2) 2.3 ng/mL (0-6.6) 10/22/19 05:46 Troponin I 0.020 ng/mL (< 0.028) 10/23/19 17:19 - Telemetry Sinus rhythms and dysrhythmias: sinus rhythm - Assessment/Plan Assessment/Plan: 1. CAD with s/p LHC on 10/18/20110 with 40% stenosis in mid LAD, 90% in distal LAD, and 99% in Lt Cx after DM1 - Plan for PTCA/stent to Lt Cx with stable renal function; On Ranexa which is increased from 500mg to 1000 mg BID from this AM, Metoprolol, ASA, and statin; 2. KAY on CKD -on NS IV; managed by editor index 3. HTN - will start norvasc 5mg qd from this AM; 4. Insulin-dependent DM - managed by PCP 5. depression - 6. Anemia - unchanged 7. Sleep Apnea - the pt stated she will have Sleep study as outpt once she has insurance from November. 8. Hx of Lt BKA MAR reviewed Pt. seen and eval. by me. I agree with the A/P by the MILITARY SOURCE OPERATIONS SPECIALIST. No further chest pain until this PM. Relieved by NTG. Discussed possible ptca/stent vs medical management after the renal function improves and is stable. aide
[2019-10-24] MEDS: hydrALAZINE 20 MG/ML VIAL SLOW IVP PRN (11:11)
--- NOTE | 2019-10-24 16:19 | PRG ---
DATE OF SERVICE: 10/24/2019 SERVICE: Nephrology. SUBJECTIVE: A 48-year-old female seen in followup for management of acute on chronic renal failure. The patient was initially admitted due to chest pain and found to have severe obstructive coronary artery disease on cardiac catheterization. Denied any chest pain currently. Also denied shortness of breath. OBJECTIVE: VITAL SIGNS: Temperature 98.3, pulse 80, respiratory rate 18, SpO2 of 95% on room air, blood pressure is 172/92. GENERAL: Obese female, in no distress. Afebrile. Anicteric. Acyanotic. HEENT: Normocephalic, atraumatic. Oral mucosa is moist. CARDIOVASCULAR: Regular rhythm and rate with normal heart sounds 1 and 2. RESPIRATORY: Fair air entry bilaterally with no obvious crackle or rhonchi or use of accessory muscles. GI: Obese, soft, nontender, nondistended with normal bowel sounds. EXTREMITIES: Left BKA as well as mild right leg edema noted. CONGRESSIONAL AIDE: Conscious, alert, oriented x3 with appropriate mental status. Cranial nerves 2 through 12 are grossly intact. DIAGNOSTIC DATA: CBC showed WBC count of 8.4, hemoglobin of 10.0, platelets of 347. Renal function panel showed sodium 141, potassium 5.0, chloride 109, CO2 of 26, BUN 52, creatinine 4.21, glucose 131, calcium 8.7, phosphorus 4.7, albumin 3.0. ASSESSMENT: 1. Acute on chronic renal failure. Acute worsening is felt to be due to contrast-induced nephropathy. Some hemodynamic factors cannot be ruled out. Creatinine is beginning to trend down from peak of 5.10 to 4.21 today. 2. Hypertension: Due to commencement of IV fluid, blood pressure is increased significantly. 3. Morbid obesity. 4. Type 2 diabetes mellitus. 5. Chronic kidney disease, stage 4. 6. Multivessel coronary artery disease, status post diagnostic coronary angiogram. Percutaneous intervention is planned when renal function improves. PLAN: 1. We will continue IV fluid for now to see if renal function will improve further. 2. Agree with addition of amlodipine to get adequate BP control. 3. Glycemic management as per primary attending. 4. We will recheck renal function test in the morning. 5. Avoid nephrotoxic agent including WENDY michelle. Job ID: [id number]
--- NOTE | 2019-10-24 17:16 | PDOC.HOSPP ---
- Subjective Encounter Date: 10/24/19 Encounter Time: 10:00 Subjective: pt up in bed no complains - Objective Vital Signs & Weight: Vital Signs (12 hours) Temp Pulse Resp BP BP Pulse Ox 10/24/19 15:19 81 10/24/19 15:14 98.3 F 81 18 129/75 95 10/24/19 13:39 91 172/92 H 10/24/19 11:11 80 172/92 H 10/24/19 11:05 98.6 F 80 18 172/92 H 95 10/24/19 11:03 80 172/92 H 10/24/19 08:37 83 168/84 H 10/24/19 08:31 98.7 F 83 18 168/84 H 95 Weight Admit Weight 310 lb Weight 320 lb 11.2 oz I&O: 10/23/19 10/24/19 10/25/19 06:59 06:59 06:59 Intake Total 1187 3237 Output Total 4250 Balance 1187 -1013 Result Diagrams: 10/24/19 04:11 10/24/19 04:11 Additional Labs: Accuchecks 10/24/19 10/24/19 10/24/19 16:37 10:39 05:56 POC Glucose 137 H 152 H 127 H 10/23/19 21:03 POC Glucose 150 H Hospitalist ROS - Review of Systems Cardiovascular: denies: chest pain, palpitations, orthopnea, paroxysmal noc. dyspnea, edema, light headedness, other Gastrointestinal: denies: nausea, vomiting, abdominal pain, diarrhea, constipation, melena, hematochezia, other Genitourinary: denies: dysuria, frequency, incontinence, hematuria, retention, other Musculoskeletal: denies: neck pain, shoulder pain, arm pain, back pain, hand pain, leg pain, foot pain, other - Medication Medications: Active Medications Generic Name Dose Route Start Last Admin Trade Name Freq PRN Reason Stop Dose Admin Acetaminophen/Codeine Phosphate 1 tab 10/18/19 15:22 10/22/19 18:14 Tylenol #3 PO 1 tab Q4H PRN Administration Mild Pain (1-3) Acetaminophen/Codeine Phosphate 2 tab 10/18/19 15:22 10/24/19 13:33 Tylenol #3 PO 2 tab Q4H PRN Administration Moderate Pain (4-6) Aspirin 325 mg 10/14/19 09:00 10/24/19 08:36 Ecotrin PO 325 mg DAILY PANCHO Administration Atorvastatin Calcium 40 mg 10/18/19 21:00 10/23/19 20:45 Lipitor PO 40 mg HS PANCHO Administration Duloxetine HCl 60 mg 10/14/19 09:00 10/24/19 08:36 Cymbalta PO 60 mg DAILY PANCHO Administration Gabapentin 300 mg 10/16/19 09:00 10/24/19 08:37 Neurontin PO 300 mg DAILY PANCHO Administration Hydralazine HCl 10 mg 10/18/19 21:56 10/18/19 22:21 Apresoline SLOW IVP 10 mg Q4H PRN Administration SBP>180 Hydralazine HCl 10 mg 10/18/19 23:28 10/24/19 11:11 Apresoline SLOW IVP 10 mg Q6H PRN Administration SBP GREATER THAN 160 Hydralazine HCl 25 mg 10/20/19 09:00 10/24/19 15:19 Apresoline PO 25 mg TID PANCHO Administration Insulin Glargine 80 units/ 0.8 mls @ 0 mls/hr 10/14/19 21:00 10/23/19 21:35 Miscellaneous Medication SC Not Given HS [facility] Promethazine HCl 12.5 mg/ 50.5 mls @ 202 mls/hr 10/18/19 23:29 10/24/19 13:33 Sodium Chloride IVPB 50.5 mls Q6H PRN Administration Nausea/vomiting use second Sodium Chloride 1,000 mls @ 100 mls/hr 10/23/19 07:15 10/24/19 15:19 Normal Saline 0.9% IV 1,000 mls .Q10H PANCHO Administration Insulin Human Lispro 0 units 10/14/19 08:37 10/14/19 17:50 Humalog SC 3 unit .MILD SLIDING SCALE PRN Administration Mild Correctional Scale Isosorbide Dinitrate 20 mg 10/21/19 09:00 10/24/19 15:20 Isordil PO 20 mg TID PANCHO Administration Labetalol HCl 20 mg 10/18/19 23:28 10/24/19 13:39 Normodyne SLOW IVP 20 mg Q4H PRN Administration SBP > 160 use third Metoprolol Tartrate 50 mg 10/20/19 07:33 10/24/19 08:37 Lopressor PO 50 mg BID PANCHO Administration Nitroglycerin 0.4 mg 10/18/19 15:22 10/23/19 16:27 Nitrostat SL 0.4 mg Q5MIN PRN Administration Chest Pain Ondansetron HCl 4 mg 10/14/19 12:31 10/22/19 18:13 Zofran Odt PO 4 mg Q6H PRN Administration Nausea/Vomiting Ranolazine 1,000 mg 10/24/19 09:00 10/24/19 08:37 Ranexa PO 1,000 mg BID PANCHO Administration Sevelamer Carbonate 800 mg 10/22/19 12:00 10/24/19 11:00 Renvela PO 800 mg TID-WM PANCHO Administration Sodium Bicarbonate 650 mg 10/15/19 21:00 10/24/19 08:38 Bicarbonate, Sodium PO 650 mg BID PANCHO Administration Sodium Chloride 10 ml 10/14/19 09:00 10/24/19 08:38 Flush - Normal Saline IVF Not Given Q12HR [facility] Tramadol HCl 50 mg 10/18/19 11:45 10/18/19 15:55 Ultram PO 50 mg Q12H PRN Administration Pain - Exam General - other findings: some facial flushing noted. Neck: negative: supple, symmetric, no JVD, no thyromegaly, no lymphadenopathy, no carotid bruit, JVD Heart: negative: RRR, no murmur, no gallops, no rubs, normal peripheral pulses, irregular, diminshed peripheral pulses, murmur present, II/IV, III/IV Respiratory: negative: CTAB, no wheezes, no rales, no ronchi, normal chest expansion, no tachypnea, normal percussion, rales, rhonchi, tachypneic, wheezes Gastrointestinal: negative: soft, non-tender, non-distended, normal bowel sounds , no palpable masses, no hepatomegaly, no splenomegaly, no bruit, no guarding, no rigidity, tender to palpation, distended, diminished bowl sounds, voluntary guarding Hosp A/P - Plan (1) Chest pain Code(s): R07.9 - CHEST PAIN, UNSPECIFIED Status: Acute Qualifiers: Chest pain type: precordial pain Qualified Code(s): R07.2 - Precordial pain (2) Acute on chronic stage 4 renal failure Status: Chronic (3) HTN (hypertension) Code(s): I10 - ESSENTIAL (PRIMARY) HYPERTENSION Status: Chronic Qualifiers: Hypertension type: essential hypertension Qualified Code(s): I10 - Essential (primary) hypertension (4) Hyperlipidemia Code(s): E78.5 - HYPERLIPIDEMIA, UNSPECIFIED Status: Chronic Qualifiers: Hyperlipidemia type: unspecified Qualified Code(s): E78.5 - Hyperlipidemia , unspecified (5) Anxiety and depression Code(s): F41.8 - OTHER SPECIFIED ANXIETY DISORDERS Status: Chronic (6) Diabetes mellitus type II, uncontrolled Code(s): E11.65 - TYPE 2 DIABETES MELLITUS WITH HYPERGLYCEMIA Status: Chronic (6) Morbid obesity Status: Chronic - Plan Repeat cath when creatinine improves. Medical management of CAD for now. Creatinine improved to 4.84 today. Depression mild, stable. 2/5 creatinine 4.6 2/6 pt's creatinine improving, she had some chest pain last night no more chest pain while on nitro. cardio to decide if she need any further intervention.
[2019-10-24] MEDS: Atorvastatin Calcium 40 MG TAB PO SCH (20:45)
[2019-10-24] MEDS: Insulin Glargine 80 UNITS in Pre-Filled Syringe 1 EACH SC SCH (20:49)
[2019-10-25] MEDS: Acetaminophen/Codeine 30-300mg Tablet PO PRN ×4 (00:37→22:19)
[2019-10-25] MEDS: Promethazine HCl 12.5 MG in Sodium Chloride 0.9% 50 ML IVPB PRN ×4 (03:16→22:19)
[2019-10-25 06:25] LABS: Anion Gap 12 mmol/L (10-20); BUN (Urea Nitrogen) 43 mg/dL (7.0-18.7); BUN/Creatinine Ratio 10.91; Calc. Creatinine Clearance 40 mL/min (70-130); Calcium 8.5 mg/dL (7.8-10.44); Carbon Dioxide 23 mmol/L (22-29); Chloride 110 mmol/L (98-107); Estimated GFR-MDRD 12; Glucose 130 mg/dL (70-105); Phosphorus 4.3 mg/dL (2.3-4.7); Potassium 5.1 mmol/L (3.5-5.1); Sodium 140 mmol/L (136-145)
[2019-10-25] MEDS: Sodium Bicarbonate Tab 325 MG TAB PO SCH ×2 (08:27→20:33)
[2019-10-25] MEDS: Metoprolol Tartrate 100 MG TAB PO SCH ×2 (08:27→20:34)
[2019-10-25] MEDS: Sevelamer Carbonate 800 MG TAB PO SCH ×3 (08:27→16:55)
[2019-10-25] MEDS: DULoxetine 60 MG CAP PO SCH (08:27)
[2019-10-25] MEDS: Isosorbide Dinitrate 20 MG TAB PO SCH ×2 (08:28→20:33)
[2019-10-25] MEDS: Aspirin 325 mg Enteric Coated Tablet PO SCH (08:28)
[2019-10-25] MEDS: Amlodipine 5 MG TAB PO SCH (08:28)
[2019-10-25] MEDS: Gabapentin 300 MG CAP PO SCH (08:28)
[2019-10-25] MEDS: hydrALAZINE 25 MG TAB PO SCH ×3 (08:49→20:34)
[2019-10-25] MEDS: Sodium Chloride 0.9% 1,000 ML IV SCH ×2 (10:20→20:35)
[2019-10-25] MEDS: traMADol HCl 50 MG TAB PO PRN ×2 (10:22→22:20)
--- NOTE | 2019-10-25 11:12 | PRG ---
DATE OF SERVICE: 10/25/2019 SERVICE: Nephrology. SUBJECTIVE: A 48-year-old female seen in followup for [id number] renal failure. The patient had cardiac catheterization for evaluation of abnormal stress test and subsequently had acute worsening of renal function. No new problem. Denied chest pain, shortness of breath, or leg edema. OBJECTIVE: VITAL SIGNS: Temperature 98.0, pulse 79, respiratory rate 18, SpO2 of 95% on room air, blood pressure is 152/73. GENERAL: Obese female, in no distress. Afebrile. Anicteric. Acyanotic. HEENT: Normocephalic, atraumatic. Oral mucosa is moist. CARDIOVASCULAR: Regular rhythm and rate with normal heart sounds 1 and 2. RESPIRATORY: Fair air entry bilaterally with few bibasilar crackles. No rhonchi or use of accessory muscles. GI: Obese, soft, nontender, nondistended with normal bowel sounds. EXTREMITIES: Left BKA noted. Right lower extremity is grossly normal looking, atraumatic with no edema or erythema. AUTOMOTIVE CONSULTANT: Conscious, alert, oriented x3 with appropriate mental status. DIAGNOSTIC DATA: Renal function panel today showed sodium 140, potassium 5.1, chloride 110, CO2 is 23, BUN 43, creatinine 3.94, glucose 130, calcium 8.5, phosphorus 4.3, albumin 3.0. ASSESSMENT: 1. Acute renal failure due to contrast-induced nephropathy. 2. Chronic kidney disease stage 4. 3. Hypertension. 4. Coronary artery disease with occlusive disease, status post diagnostic angiogram. Repeat cardiac catheterization with percutaneous intervention is planned. 5. Morbid obesity with presumed obstructive sleep apnea. 6. Hypertension: Control is fair. PLAN: 1. We will continue normal saline therapy, given that creatinine is trending downwards. We will continue to avoid nephrotoxic agents including lisinopril and diuretics. 2. We will continue to adjust antihypertensives to get adequate BP control. 3. We will monitor the patient closely to avoid fluid overload. 4. We will get renal function panel in the morning. Further treatment to follow depending on hospital course. Job ID: [id number]
--- NOTE | 2019-10-25 11:44 | PDOC.CPN ---
- Subjective Date: 10/25/19 Time: 09:00 Interval history: The pt seen and examined. No overnight events. No cardiac complaints. - Objective Allergies/Adverse Reactions: Allergies Allergy/AdvReac Type Severity Reaction Status Date / Time codeine AdvReac Verified 06/05/17 03:31 Visit Medications: Current Medications Acetaminophen/Codeine Phosphate (Tylenol #3) 1 tab PO Q4H PRN PRN Reason: Mild Pain (1-3) Last Admin: 10/25/19 10:24 Dose: 1 tab Acetaminophen/Codeine Phosphate (Tylenol #3) 2 tab PO Q4H PRN PRN Reason: Moderate Pain (4-6) Last Admin: 10/25/19 00:37 Dose: 2 tab Amlodipine Besylate (Norvasc) 5 mg PO DAILY [facility] Last Admin: 10/25/19 08:28 Dose: 5 mg Aspirin (Ecotrin) 325 mg PO DAILY [facility] Last Admin: 10/25/19 08:28 Dose: 325 mg Atorvastatin Calcium (Lipitor) 40 mg PO HS [facility] Last Admin: 10/24/19 20:45 Dose: 40 mg Clonidine (Catapres) 0.1 mg PO BID PRN PRN Reason: SBP > 160 use second Dextrose/Water (Dextrose 50%) 25 gm SLOW IVP PRN PRN PRN Reason: Hypoglycemia Duloxetine HCl (Cymbalta) 60 mg PO DAILY [facility] Last Admin: 10/25/19 08:27 Dose: 60 mg Gabapentin (Neurontin) 300 mg PO DAILY [facility] Last Admin: 10/25/19 08:28 Dose: 300 mg Glucagon (Glucagon) 1 mg IM PRN PRN PRN Reason: Hypoglycemia Hydralazine HCl (Apresoline) 10 mg SLOW IVP Q4H PRN PRN Reason: SBP>180 Last Admin: 10/18/19 22:21 Dose: 10 mg Hydralazine HCl (Apresoline) 10 mg SLOW IVP Q6H PRN PRN Reason: SBP GREATER THAN 160 Last Admin: 10/24/19 11:11 Dose: 10 mg Hydralazine HCl (Apresoline) 25 mg PO TID [facility] Last Admin: 10/25/19 08:49 Dose: 25 mg Dextrose/Water (D5w) 1,000 mls @ 0 mls/hr IV .Q0M PRN PRN Reason: Hypoglycemia Insulin Glargine 80 units/ (Miscellaneous Medication) 0.8 mls @ 0 mls/hr SC HS [facility] Last Admin: 10/24/19 20:49 Dose: Not Given Promethazine HCl 12.5 mg/ (Sodium Chloride) 50.5 mls @ 202 mls/hr IVPB Q6H PRN PRN Reason: Nausea/vomiting use second Last Admin: 10/25/19 10:21 Dose: 50.5 mls Sodium Chloride (Normal Saline 0.9%) 1,000 mls @ 100 mls/hr IV .Q10H [facility] Last Admin: 10/25/19 10:20 Dose: 1,000 mls Insulin Human Lispro (Humalog) 0 units SC .MILD SLIDING SCALE PRN PRN Reason: Mild Correctional Scale Last Admin: 10/14/19 17:50 Dose: 3 unit Isosorbide Dinitrate (Isordil) 40 mg PO BID [facility] Isosorbide Dinitrate (Isordil) 20 mg PO ONE [facility] Labetalol HCl (Normodyne) 20 mg SLOW IVP Q4H PRN PRN Reason: SBP > 160 use third Last Admin: 10/24/19 13:39 Dose: 20 mg Metoprolol Tartrate (Lopressor) 50 mg PO BID [facility] Last Admin: 10/25/19 08:27 Dose: 50 mg Nitroglycerin (Nitrostat) 0.4 mg SL Q5MIN PRN PRN Reason: Chest Pain Last Admin: 10/23/19 16:27 Dose: 0.4 mg Ondansetron HCl (Zofran Odt) 4 mg PO Q6H PRN PRN Reason: Nausea/Vomiting Last Admin: 10/22/19 18:13 Dose: 4 mg Ranolazine (Ranexa) 1,000 mg PO BID [facility] Last Admin: 10/25/19 08:27 Dose: 1,000 mg Sevelamer Carbonate (Renvela) 800 mg PO TID[facility] Last Admin: 10/25/19 08:27 Dose: 800 mg Sodium Bicarbonate (Bicarbonate, Sodium) 650 mg PO BID [facility] Last Admin: 10/25/19 08:27 Dose: 650 mg Sodium Chloride (Flush - Normal Saline) 10 ml IVF Q12HR [facility] Last Admin: 10/25/19 08:40 Dose: Not Given Tramadol HCl (Ultram) 50 mg PO Q12H PRN PRN Reason: Pain Last Admin: 10/25/19 10:22 Dose: 50 mg Vital Signs & Weight: Vital Signs Temp Pulse Resp BP BP Pulse Ox 10/25/19 08:49 79 152/73 H 10/25/19 08:28 79 152/73 H 10/25/19 08:15 98.0 F 79 18 152/73 H 95 10/25/19 08:03 95 10/25/19 03:10 97.9 F 77 17 141/72 H 95 Admit Weight 310 lb Weight 320 lb 9.6 oz - Physical Exam General: alert & oriented x3 HEENT: mucus membranes moist Neck: supple neck Cardiac: regular rate and rhythm, S1/S2 Lungs: decreased breath sounds Neuro: cranial nerve 2-12 intact - Labs Result Diagrams: 10/24/19 04:11 10/25/19 05:56 Troponin/CKMB CK-MB (CK-2) 2.3 ng/mL (0-6.6) 10/22/19 05:46 Troponin I 0.020 ng/mL (< 0.028) 10/23/19 17:19 - Telemetry Sinus rhythms and dysrhythmias: sinus rhythm - Assessment/Plan Assessment/Plan: 1. CAD with s/p LHC on with 40% stenosis in mid LAD, 90% in distal LAD, and 99% in Lt Cx after DM1 - Plan for possible PTCA/stent to Lt Cx with stable renal function or medical management ; No CP this AM; On Ranexa 1000 mg BID, Metoprolol, ASA, and statin; 2. KAY on CKD -on NS IV; managed by pharmacy ancillary 3. HTN - will increase Isosorbide to 40mg BID; 4. Insulin-dependent DM - managed by PCP 5. depression - 6. Anemia - unchanged 7. Sleep Apnea - the pt stated she will have Sleep study as outpt once she has insurance from November. 8. Hx of Lt ARCHANAA CORY reviewed Pt. seen and eval. by me. I agree with the A/P by the MANAGER SPRING.The renal fx. is improving. I have discussed with her the posibility of medical management of her CAD vs possible attempt to angioplasty the L-circumflex +/- stent. It was very difficult to visualize the coronaries on the last cath. due to her obesity.Continue medical treatment for now. aide
[2019-10-25] MEDS ORDERED: Isosorbide Dinitrate 20 MG TAB PO SCH (11:45)
[2019-10-25] MEDS ORDERED: Polyethylene Glycol 3350 17 GM Packet PO PRN (15:28)
--- NOTE | 2019-10-25 15:31 | PDOC.HOSPP ---
- Subjective Encounter Date: 10/25/19 Encounter Time: 09:45 Subjective: pt up in bed no complains - Objective Vital Signs & Weight: Vital Signs (12 hours) Temp Pulse Resp BP BP BP Pulse Ox 10/25/19 14:40 79 144/76 H 10/25/19 11:50 97.6 F 84 16 110/59 L 94 L 10/25/19 08:49 79 152/73 H 10/25/19 08:28 79 152/73 H 10/25/19 08:15 98.0 F 79 18 152/73 H 95 10/25/19 08:03 95 Weight Admit Weight 310 lb Weight 320 lb 9.6 oz I&O: 10/24/19 10/25/19 10/26/19 06:59 06:59 06:59 Intake Total 3237 2370 Output Total 4250 1300 Balance -1013 1070 Result Diagrams: 10/24/19 04:11 10/25/19 05:56 Additional Labs: Accuchecks 10/25/19 10/25/19 10/24/19 10:50 05:32 20:30 POC Glucose 150 H 133 H 156 H 10/24/19 16:37 POC Glucose 137 H Hospitalist ROS - Review of Systems Respiratory: denies: cough, dry, shortness of breath, hemoptysis, SOB with excertion, pleuritic pain, sputum, wheezing, other Cardiovascular: denies: chest pain, palpitations, orthopnea, paroxysmal noc. dyspnea, edema, light headedness, other Gastrointestinal: denies: nausea, vomiting, abdominal pain, diarrhea, constipation, melena, hematochezia, other - Medication Medications: Active Medications Generic Name Dose Route Start Last Admin Trade Name Freq PRN Reason Stop Dose Admin Acetaminophen/Codeine Phosphate 1 tab 10/18/19 15:22 10/25/19 10:24 Tylenol #3 PO 1 tab Q4H PRN Administration Mild Pain (1-3) Acetaminophen/Codeine Phosphate 2 tab 10/18/19 15:22 10/25/19 00:37 Tylenol #3 PO 2 tab Q4H PRN Administration Moderate Pain (4-6) Amlodipine Besylate 5 mg 10/25/19 09:00 10/25/19 08:28 Norvasc PO 5 mg DAILY [facility] Administration Aspirin 325 mg 10/14/19 09:00 10/25/19 08:28 Ecotrin PO 325 mg DAILY [facility] Administration Atorvastatin Calcium 40 mg 10/18/19 21:00 10/24/19 20:45 Lipitor PO 40 mg HS [facility] Administration Duloxetine HCl 60 mg 10/14/19 09:00 10/25/19 08:27 Cymbalta PO 60 mg DAILY [facility] Administration Gabapentin 300 mg 10/16/19 09:00 10/25/19 08:28 Neurontin PO 300 mg DAILY [facility] Administration Hydralazine HCl 10 mg 10/18/19 21:56 10/18/19 22:21 Apresoline SLOW IVP 10 mg Q4H PRN Administration SBP>180 Hydralazine HCl 10 mg 10/18/19 23:28 10/24/19 11:11 Apresoline SLOW IVP 10 mg Q6H PRN Administration SBP GREATER THAN 160 Hydralazine HCl 25 mg 10/20/19 09:00 10/25/19 14:40 Apresoline PO 25 mg TID [facility] Administration Insulin Glargine 80 units/ 0.8 mls @ 0 mls/hr 10/14/19 21:00 10/24/19 20:49 Miscellaneous Medication SC Not Given HS [facility] Promethazine HCl 12.5 mg/ 50.5 mls @ 202 mls/hr 10/18/19 23:29 10/25/19 10:21 Sodium Chloride IVPB 50.5 mls Q6H PRN Administration Nausea/vomiting use second Sodium Chloride 1,000 mls @ 100 mls/hr 10/23/19 07:15 10/25/19 10:20 Normal Saline 0.9% IV 1,000 mls .Q10H [facility] Administration Insulin Human Lispro 0 units 10/14/19 08:37 10/14/19 17:50 Humalog SC 3 unit .MILD SLIDING SCALE PRN Administration Mild Correctional Scale Labetalol HCl 20 mg 10/18/19 23:28 10/24/19 13:39 Normodyne SLOW IVP 20 mg Q4H PRN Administration SBP > 160 use third Metoprolol Tartrate 50 mg 10/20/19 07:33 10/25/19 08:27 Lopressor PO 50 mg BID [facility] Administration Nitroglycerin 0.4 mg 10/18/19 15:22 10/23/19 16:27 Nitrostat SL 0.4 mg Q5MIN PRN Administration Chest Pain Ondansetron HCl 4 mg 10/14/19 12:31 10/22/19 18:13 Zofran Odt PO 4 mg Q6H PRN Administration Nausea/Vomiting Ranolazine 1,000 mg 10/24/19 09:00 10/25/19 08:27 Ranexa PO 1,000 mg BID [facility] Administration Sevelamer Carbonate 800 mg 10/22/19 12:00 10/25/19 12:15 Renvela PO Not Given TID-[facility] Sodium Bicarbonate 650 mg 10/15/19 21:00 10/25/19 08:27 Bicarbonate, Sodium PO 650 mg BID [facility] Administration Sodium Chloride 10 ml 10/14/19 09:00 10/25/19 08:40 Flush - Normal Saline IVF Not Given Q12HR [facility] Tramadol HCl 50 mg 10/18/19 11:45 10/25/19 10:22 Ultram PO 50 mg Q12H PRN Administration Pain - Exam Heart: negative: RRR, no murmur, no gallops, no rubs, normal peripheral pulses, irregular, diminshed peripheral pulses, murmur present, II/IV, III/IV Respiratory: negative: CTAB, no wheezes, no rales, no ronchi, normal chest expansion, no tachypnea, normal percussion, rales, rhonchi, tachypneic, wheezes Gastrointestinal: negative: soft, non-tender, non-distended, normal bowel sounds , no palpable masses, no hepatomegaly, no splenomegaly, no bruit, no guarding, no rigidity, tender to palpation, distended, diminished bowl sounds, voluntary guarding Extremities: negative: no cyanosis, no clubbing, no edema, 1+ LE edema, 2+ LE edema, clubbing Hosp A/P - Plan (1) Chest pain Code(s): R07.9 - CHEST PAIN, UNSPECIFIED Status: Acute Qualifiers: Chest pain type: precordial pain Qualified Code(s): R07.2 - Precordial pain (2) Acute on chronic stage 4 renal failure Status: Chronic (3) HTN (hypertension) Code(s): I10 - ESSENTIAL (PRIMARY) HYPERTENSION Status: Chronic Qualifiers: Hypertension type: essential hypertension Qualified Code(s): I10 - Essential (primary) hypertension (4) Hyperlipidemia Code(s): E78.5 - HYPERLIPIDEMIA, UNSPECIFIED Status: Chronic Qualifiers: Hyperlipidemia type: unspecified Qualified Code(s): E78.5 - Hyperlipidemia , unspecified (5) Anxiety and depression Code(s): F41.8 - OTHER SPECIFIED ANXIETY DISORDERS Status: Chronic (6) Diabetes mellitus type II, uncontrolled Code(s): E11.65 - TYPE 2 DIABETES MELLITUS WITH HYPERGLYCEMIA Status: Chronic (6) Morbid obesity Status: Chronic - Plan Repeat cath when creatinine improves. Medical management of CAD for now. Creatinine improved to 4.84 today. Depression mild, stable. 10/23 creatinine 4.6 2/ pt's creatinine improving, she had some chest pain last night no more chest pain while on nitro. cardio to decide if she need any further intervention. 2/ creatinine is improving. will add stool softeners. medical management vs cath cardio to decide.
[2019-10-25] MEDS ORDERED: Docusate 100 MG CAP PO SCH (15:45)
[2019-10-25] MEDS: Atorvastatin Calcium 40 MG TAB PO SCH (20:34)
[2019-10-25] MEDS: Docusate 100 MG CAP PO SCH (20:35)
[2019-10-25] MEDS: Insulin Glargine 80 UNITS in Pre-Filled Syringe 1 EACH SC SCH (22:05)
[2019-10-26] MEDS: Acetaminophen/Codeine 30-300mg Tablet PO PRN ×4 (05:15→23:34)
[2019-10-26] MEDS: Promethazine HCl 12.5 MG in Sodium Chloride 0.9% 50 ML IVPB PRN ×4 (05:15→23:34)
[2019-10-26 07:59] LABS: Albumin 3.1 g/dL (3.5-5.0); Anion Gap 12 mmol/L (10-20); BUN (Urea Nitrogen) 41 mg/dL (7.0-18.7); BUN/Creatinine Ratio 10.82; Calc. Creatinine Clearance 42 mL/min (70-130); Calcium 8.8 mg/dL (7.8-10.44); Carbon Dioxide 22 mmol/L (22-29); Chloride 110 mmol/L (98-107); Estimated GFR-MDRD 13; Glucose 128 mg/dL (70-105); Phosphorus 3.9 mg/dL (2.3-4.7); Potassium 5.3 mmol/L (3.5-5.1); Sodium 139 mmol/L (136-145)
[2019-10-26] MEDS: Isosorbide Dinitrate 20 MG TAB PO SCH ×2 (08:26→21:12)
[2019-10-26] MEDS: Sodium Chloride 0.9% 1,000 ML IV SCH (08:26)
[2019-10-26] MEDS: Aspirin 325 mg Enteric Coated Tablet PO SCH (08:26)
[2019-10-26] MEDS: Docusate 100 MG CAP PO SCH ×2 (08:26→21:08)
[2019-10-26] MEDS: Amlodipine 5 MG TAB PO SCH (08:26)
[2019-10-26] MEDS: DULoxetine 60 MG CAP PO SCH (08:26)
[2019-10-26] MEDS: Sevelamer Carbonate 800 MG TAB PO SCH ×3 (08:26→17:46)
[2019-10-26] MEDS: Gabapentin 300 MG CAP PO SCH (08:26)
[2019-10-26] MEDS: hydrALAZINE 25 MG TAB PO SCH ×3 (08:27→21:14)
[2019-10-26] MEDS: Polyethylene Glycol 3350 17 GM Packet PO SCH (08:27)
[2019-10-26] MEDS: Sodium Bicarbonate Tab 325 MG TAB PO SCH ×2 (08:27→21:11)
[2019-10-26] MEDS: Metoprolol Tartrate 100 MG TAB PO SCH ×2 (08:27→21:14)
[2019-10-26] MEDS ORDERED: Furosemide 20 MG/2 ML VIAL SLOW IVP SCH (09:45)
--- NOTE | 2019-10-26 11:01 | PDOC.CPN ---
- Subjective Date: 10/26/19 Time: 11:20 Interval history: Ms. Wilkes is resting, awakens easily. Complains of fatigue, not sleeping well. Denies chest pain. Continues to feel short of breath when she exerts, but states this is improving. Describes cough, dry. Denies N/V/D. No overnight events on telemetry. - Review of Systems General: reports: fatigue Respiratory: reports: cough, shortness of breath Cardiovascular: reports: chest pain, palpitation, edema, paroxysmal nocturnal dyspnea, orthopnea Gastrointestinal: reports: nausea, vomiting, diarrhea, constipation, abd pain, GI bleeding Musculoskeletal: reports: pain, tenderness, stiffness, swelling, arthritis/ arthralgias Neurological: reports: numbness, syncope, seizure, weakness - Objective Allergies/Adverse Reactions: Allergies Allergy/AdvReac Type Severity Reaction Status Date / Time codeine AdvReac Verified 06/05/17 03:31 Visit Medications: Current Medications Acetaminophen/Codeine Phosphate (Tylenol #3) 1 tab PO Q4H PRN PRN Reason: Mild Pain (1-3) Last Admin: 10/25/19 22:19 Dose: 1 tab Acetaminophen/Codeine Phosphate (Tylenol #3) 2 tab PO Q4H PRN PRN Reason: Moderate Pain (4-6) Last Admin: 10/26/19 05:15 Dose: 2 tab Amlodipine Besylate (Norvasc) 5 mg PO DAILY [facility] Last Admin: 10/26/19 08:26 Dose: 5 mg Aspirin (Ecotrin) 325 mg PO DAILY [facility] Last Admin: 10/26/19 08:26 Dose: 325 mg Atorvastatin Calcium (Lipitor) 40 mg PO HS [facility] Last Admin: 10/25/19 20:34 Dose: 40 mg Clonidine (Catapres) 0.1 mg PO BID PRN PRN Reason: SBP > 160 use second Dextrose/Water (Dextrose 50%) 25 gm SLOW IVP PRN PRN PRN Reason: Hypoglycemia Docusate Sodium (Colace) 100 mg PO BID [facility] Last Admin: 10/26/19 08:26 Dose: 100 mg Duloxetine HCl (Cymbalta) 60 mg PO DAILY [facility] Last Admin: 10/26/19 08:26 Dose: 60 mg Furosemide (Lasix) 20 mg SLOW IVP NOW [facility] Stop: 10/26/19 12:00 Last Admin: 10/26/19 10:14 Dose: 20 mg Gabapentin (Neurontin) 300 mg PO DAILY [facility] Last Admin: 10/26/19 08:26 Dose: 300 mg Glucagon (Glucagon) 1 mg IM PRN PRN PRN Reason: Hypoglycemia Hydralazine HCl (Apresoline) 10 mg SLOW IVP Q4H PRN PRN Reason: SBP>180 Last Admin: 10/18/19 22:21 Dose: 10 mg Hydralazine HCl (Apresoline) 10 mg SLOW IVP Q6H PRN PRN Reason: SBP GREATER THAN 160 Last Admin: 10/24/19 11:11 Dose: 10 mg Hydralazine HCl (Apresoline) 25 mg PO TID [facility] Last Admin: 10/26/19 08:27 Dose: 25 mg Dextrose/Water (D5w) 1,000 mls @ 0 mls/hr IV .Q0M PRN PRN Reason: Hypoglycemia Insulin Glargine 80 units/ (Miscellaneous Medication) 0.8 mls @ 0 mls/hr SC [facility] Last Admin: 10/25/19 22:05 Dose: Not Given Promethazine HCl 12.5 mg/ (Sodium Chloride) 50.5 mls @ 202 mls/hr IVPB Q6H PRN PRN Reason: Nausea/vomiting use second Last Admin: 10/26/19 05:15 Dose: 50.5 mls Insulin Human Lispro (Humalog) 0 units SC .MILD SLIDING SCALE PRN PRN Reason: Mild Correctional Scale Last Admin: 10/14/19 17:50 Dose: 3 unit Isosorbide Dinitrate (Isordil) 40 mg PO BID [facility] Last Admin: 10/26/19 08:26 Dose: 40 mg Labetalol HCl (Normodyne) 20 mg SLOW IVP Q4H PRN PRN Reason: SBP > 160 use third Last Admin: 10/24/19 13:39 Dose: 20 mg Metoprolol Tartrate (Lopressor) 50 mg PO BID [facility] Last Admin: 10/26/19 08:27 Dose: 50 mg Nitroglycerin (Nitrostat) 0.4 mg SL Q5MIN PRN PRN Reason: Chest Pain Last Admin: 10/23/19 16:27 Dose: 0.4 mg Ondansetron HCl (Zofran Odt) 4 mg PO Q6H PRN PRN Reason: Nausea/Vomiting Last Admin: 10/22/19 18:13 Dose: 4 mg Polyethylene Glycol (Miralax) 17 gm PO DAILY [facility] Last Admin: 10/26/19 08:27 Dose: 17 gm Polyethylene Glycol (Miralax) 17 gm PO DAILYPRN PRN PRN Reason: Constipation Last Admin: 10/25/19 16:56 Dose: 17 gm Ranolazine (Ranexa) 1,000 mg PO BID [facility] Last Admin: 10/26/19 08:27 Dose: 1,000 mg Sevelamer Carbonate (Renvela) 800 mg PO TID-WM [facility] Last Admin: 10/26/19 08:26 Dose: 800 mg Sodium Bicarbonate (Bicarbonate, Sodium) 650 mg PO BID [facility] Last Admin: 10/26/19 08:27 Dose: 650 mg Sodium Chloride (Flush - Normal Saline) 10 ml IVF Q12HR [facility] Last Admin: 10/26/19 08:27 Dose: 10 ml Tramadol HCl (Ultram) 50 mg PO Q12H PRN PRN Reason: Pain Last Admin: 10/25/19 22:20 Dose: 50 mg Vital Signs & Weight: Vital Signs Temp Pulse Resp BP Pulse Ox 10/26/19 07:40 97.4 F L 78 18 147/75 H 95 10/26/19 03:27 97.7 F 75 18 128/67 93 L Admit Weight 310 lb Weight 320 lb 8 oz - Quality Measures Condition: Coronary Artery Disease CV meds: Beta Elif: Yes, GADIEL/ARB: No (Held 2/2 CKD), Statin: Yes, ASA: Yes, Plavix/Effient/Brilinta: No, Anticoagulant: No - Physical Exam General: no apparent distress (Obese) HEENT: mucus membranes moist, normocephaly Neck: supple neck, no JVD/HJR, no bruit Cardiac: regular rate and rhythm, no murmur Lungs: normal breath sounds, no wheeze, rales, rhonchi Neuro: grossly intact Abdomen: active bowel sounds, soft, non-tender Extremities: no edema - Labs Result Diagrams: 10/24/19 04:11 10/26/19 07:26 Troponin/CKMB CK-MB (CK-2) 2.3 ng/mL (0-6.6) 10/22/19 05:46 Troponin I 0.020 ng/mL (< 0.028) 10/23/19 17:19 - Telemetry Sinus rhythms and dysrhythmias: sinus rhythm (70s) - Assessment/Plan Assessment/Plan: 1. CAD with s/p LHC on 10/13/2019 with 40% stenosis in mid LAD, 90% in distal LAD, and 99% in Lt Cx after DM1. Consideration for possible PTCA/stent to LCx when renal function stabilizes versus medical therapy. No anginal symptoms, continue antianginals, BB, ASA, statin. 2. KAY on CKD -improving, creatinine nearing baseline. Followed by nephrology. 3. HTN - stable, adequately controlled. 4. Insulin-dependent DM - managed by PCP 5. depression 6. Anemia 7. Sleep Apnea 8. PAD, history left BKA Continue medical therapy, monitor renal function. RG- Agree with above. Pt creatinine has slowly improved. Consideration to intervention on circ if symptoms continue No change sin meds
--- NOTE | 2019-10-26 11:31 | PRG ---
DATE OF SERVICE: 10/26/2019 SERVICE: Nephrology. SUBJECTIVE: A 48-year-old female with obesity, CKD 4/5, admitted due to chest pain and shortness of breath. The patient was found to have abnormal stress test and subsequent diagnostic coronary angiogram showed occlusive disease. Post diagnostic cardiac angiogram, the patient developed acute worsening of renal function. Clinically stable. Denies shortness of breath or edema. Had episodes of chest pain subsequently. OBJECTIVE: VITAL SIGNS: Temperature 97.4, pulse 78, respiratory rate 18, SpO2 of 95% on room air, and blood pressure is 147/75. GENERAL: Obese female, in no distress. Afebrile. Anicteric. Acyanotic. HEENT: Normocephalic and atraumatic. Oral mucosa is moist. CARDIOVASCULAR: Regular rhythm and rate with normal heart sounds 1 and 2. RESPIRATORY: Fair air entry bilaterally with few bibasilar crackles. No rhonchi or use of accessory muscles noted. GI: Abdomen is obese, soft, nontender, and nondistended with normal bowel sounds. EXTREMITIES: Left BKA noted. Otherwise, extremities are grossly normal looking, atraumatic with no obvious edema or erythema. HEEL SEWER: Conscious, alert, and oriented x3 with appropriate mental status. DIAGNOSTIC DATA: Renal function panel today showed sodium 139, potassium 5.3, chloride 110, CO2 of 22, BUN 41, creatinine 3.79, glucose 128, calcium 8.8, phosphorus 3.9, and albumin 3.1. ASSESSMENT: 1. Acute on chronic renal failure: Due to contrast-induced nephropathy. Some contribution from hemodynamic factors cannot be ruled out. With IV fluids, creatinine is trending down towards baseline. 2. Hyperkalemia: Mild: Most likely due to diet. 3. Severe coronary artery disease with some occlusion. Cardiology is contemplating. Cardiac catheterization with angioplasty. 4. Hypertension: Control is acceptable. 5. Morbid obesity with presumed obstructive sleep apnea. 6. Complicated diabetes mellitus with peripheral artery disease, status post left below-knee amputation and nephropathy. 7. 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 PLAN: 1. We will discontinue IV fluid therapy as creatinine seems to be stabilizing. We will continue alkali therapy. 2. We get creatinine clearance to ascertain current renal function. 3. We will discuss with Cardiology on Monday on way forward. The patient may be initiated on hemodialysis if she had subsequent cardiac catheterization with angioplasty. Further treatment to follow depending on hospital course. Job ID: [id number]
[2019-10-26] MEDS: traMADol HCl 50 MG TAB PO PRN ×2 (11:38→23:32)
--- NOTE | 2019-10-26 19:44 | PDOC.HOSPP ---
- Subjective Encounter Date: 10/26/19 Encounter Time: :20 Subjective: Pt seen for followup re: chest pain. Feels better today, no new complaints. - Objective Vital Signs & Weight: Vital Signs (12 hours) Temp Pulse Resp BP Pulse Ox 10/26/19 15:33 97.8 F 74 16 129/73 94 L 10/26/19 11:45 74 18 125/67 94 L Weight Admit Weight 310 lb Weight 320 lb 8 oz I&O: 10/25/19 10/26/19 10/27/19 06:59 06:59 06:59 Intake Total 3560 4115 1120 Output Total 1300 950 Balance 2260 3165 1120 Result Diagrams: 10/24/19 04:11 10/26/19 07:26 Additional Labs: Accuchecks 10/26/19 10/26/19 10/26/19 17:19 10:34 05:31 POC Glucose 158 H 136 H 118 H 10/25/19 20:19 POC Glucose 178 H Labs and MARs reviewed by me EKG Reviewed by me: Yes (Tele: NSR) Hospitalist ROS - Review of Systems Cardiovascular: denies: chest pain, palpitations, orthopnea, edema, light headedness Gastrointestinal: denies: nausea, vomiting, abdominal pain, diarrhea, melena, hematochezia - Medication Medications: Active Medications Generic Name Dose Route Start Last Admin Trade Name Freq PRN Reason Stop Dose Admin Acetaminophen/Codeine Phosphate 1 tab 10/18/19 15:22 10/26/19 11:38 Tylenol #3 PO 1 tab Q4H PRN Administration Mild Pain (1-3) Acetaminophen/Codeine Phosphate 2 tab 10/18/19 15:22 10/26/19 17:46 Tylenol #3 PO 2 tab Q4H PRN Administration Moderate Pain (4-6) Amlodipine Besylate 5 mg 10/25/19 09:00 10/26/19 08:26 Norvasc PO 5 mg DAILY PANCHO Administration Aspirin 325 mg 10/14/19 09:00 10/26/19 08:26 Ecotrin PO 325 mg DAILY [facility] Administration Atorvastatin Calcium 40 mg 10/18/19 21:00 10/25/19 20:34 Lipitor PO 40 mg HS PANCHO Administration Docusate Sodium 100 mg 10/25/19 21:00 10/26/19 08:26 Colace PO 100 mg BID [facility]CHO Administration Duloxetine HCl 60 mg 10/14/19 09:00 10/26/19 08:26 Cymbalta PO 60 mg DAILY [facility] Administration Gabapentin 300 mg 10/16/19 09:00 10/26/19 08:26 Neurontin PO 300 mg DAILY [facility] Administration Hydralazine HCl 10 mg 10/18/19 21:56 10/18/19 22:21 Apresoline SLOW IVP 10 mg Q4H PRN Administration SBP>180 Hydralazine HCl 10 mg 10/18/19 23:28 10/24/19 11:11 Apresoline SLOW IVP 10 mg Q6H PRN Administration SBP GREATER THAN 160 Hydralazine HCl 25 mg 10/20/19 09:00 10/26/19 15:34 Apresoline PO Not Given TID [facility] Insulin Glargine 80 units/ 0.8 mls @ 0 mls/hr 10/14/19 21:00 10/25/19 22:05 Miscellaneous Medication SC Not Given HS [facility] Promethazine HCl 12.5 mg/ 50.5 mls @ 202 mls/hr 10/18/19 23:29 10/26/19 17:45 Sodium Chloride IVPB 50.5 mls Q6H PRN Administration Nausea/vomiting use second Insulin Human Lispro 0 units 10/14/19 08:37 10/14/19 17:50 Humalog SC 3 unit .MILD SLIDING SCALE PRN Administration Mild Correctional Scale Isosorbide Dinitrate 40 mg 10/25/19 21:00 10/26/19 08:26 Isordil PO 40 mg BID [facility] Administration Labetalol HCl 20 mg 10/18/19 23:28 10/24/19 13:39 Normodyne SLOW IVP 20 mg Q4H PRN Administration SBP > 160 use third Metoprolol Tartrate 50 mg 10/20/19 07:33 10/26/19 08:27 Lopressor PO 50 mg BID [facility] Administration Nitroglycerin 0.4 mg 10/18/19 15:22 10/23/19 16:27 Nitrostat SL 0.4 mg Q5MIN PRN Administration Chest Pain Ondansetron HCl 4 mg 10/14/19 12:31 10/22/19 18:13 Zofran Odt PO 4 mg Q6H PRN Administration Nausea/Vomiting Polyethylene Glycol 17 gm 10/26/19 09:00 10/26/19 08:27 Miralax PO 17 gm DAILY [facility] Administration Polyethylene Glycol 17 gm 10/25/19 15:28 10/25/19 16:56 Miralax PO 17 gm DAILYPRN PRN Administration Constipation Ranolazine 1,000 mg 10/24/19 09:00 10/26/19 08:27 Ranexa PO 1,000 mg BID [facility] Administration Sevelamer Carbonate 800 mg 10/22/19 12:00 10/26/19 17:46 Renvela PO 800 mg TID-WM [facility]CHO Administration Sodium Bicarbonate 650 mg 10/15/19 21:00 10/26/19 08:27 Bicarbonate, Sodium PO 650 mg BID [facility] Administration Sodium Chloride 10 ml 10/14/19 09:00 10/26/19 08:27 Flush - Normal Saline IVF 10 ml Q12HR [facility] Administration Tramadol HCl 50 mg 10/18/19 11:45 10/26/19 11:38 Ultram PO 50 mg Q12H PRN Administration Pain - Exam General - other findings: Morbid obesity Eye: anicteric sclera ENT: moist mucosa Neck: supple Heart: RRR Respiratory: CTAB Gastrointestinal: soft, non-tender Extremities: no cyanosis Extremities - other findings: s/p L BKA Skin: no rashes Psychiatric: normal affect, normal behavior Hosp A/P - Plan - Assessment (1) Chest pain Code(s): R07.9 - CHEST PAIN, UNSPECIFIED Status: Acute Qualifiers: Chest pain type: precordial pain Qualified Code(s): R07.2 - Precordial pain (2) Acute on chronic stage 4 renal failure Status: Chronic (3) HTN (hypertension) Code(s): I10 - ESSENTIAL (PRIMARY) HYPERTENSION Status: Chronic Qualifiers: Hypertension type: essential hypertension Qualified Code(s): I10 - Essential (primary) hypertension (4) Hyperlipidemia Code(s): E78.5 - HYPERLIPIDEMIA, UNSPECIFIED Status: Chronic Qualifiers: Hyperlipidemia type: unspecified Qualified Code(s): E78.5 - Hyperlipidemia , unspecified (5) Anxiety and depression Code(s): F41.8 - OTHER SPECIFIED ANXIETY DISORDERS Status: Chronic (6) Diabetes mellitus type II, uncontrolled Code(s): E11.65 - TYPE 2 DIABETES MELLITUS WITH HYPERGLYCEMIA Status: Chronic (6) Morbid obesity Status: Chronic - Plan Creatinine improved to 3,79 today. Mild hyperkalemia. Cardiology considering repeat cath when renal function improves. Depression mild, stable.
[2019-10-26] MEDS: Atorvastatin Calcium 40 MG TAB PO SCH (21:08)
[2019-10-26] MEDS: Insulin Glargine 80 UNITS in Pre-Filled Syringe 1 EACH SC SCH (21:16)
[2019-10-27 05:22] LABS: Albumin 3.2 g/dL (3.5-5.0); Anion Gap 11 mmol/L (10-20); BUN (Urea Nitrogen) 43 mg/dL (7.0-18.7); BUN/Creatinine Ratio 10.49; Calc. Creatinine Clearance 39 mL/min (70-130); Calcium 8.9 mg/dL (7.8-10.44); Carbon Dioxide 24 mmol/L (22-29); Chloride 109 mmol/L (98-107); Estimated GFR-MDRD 12; Glucose 125 mg/dL (70-105); Potassium 4.9 mmol/L (3.5-5.1); Sodium 139 mmol/L (136-145)
[2019-10-27] MEDS: Acetaminophen/Codeine 30-300mg Tablet PO PRN ×3 (05:47→21:47)
[2019-10-27] MEDS: Polyethylene Glycol 3350 17 GM Packet PO SCH (09:09)
[2019-10-27] MEDS: Sevelamer Carbonate 800 MG TAB PO SCH ×3 (09:09→17:02)
[2019-10-27] MEDS: Gabapentin 300 MG CAP PO SCH (09:09)
[2019-10-27] MEDS: Amlodipine 5 MG TAB PO SCH (09:10)
[2019-10-27] MEDS: DULoxetine 60 MG CAP PO SCH (09:10)
[2019-10-27] MEDS: Docusate 100 MG CAP PO SCH ×2 (09:10→21:47)
[2019-10-27] MEDS: Isosorbide Dinitrate 20 MG TAB PO SCH (09:10)
[2019-10-27] MEDS: hydrALAZINE 25 MG TAB PO SCH ×3 (09:10→21:46)
[2019-10-27] MEDS: Aspirin 325 mg Enteric Coated Tablet PO SCH (09:10)
[2019-10-27] MEDS: Sodium Bicarbonate Tab 325 MG TAB PO SCH ×2 (09:10→21:46)
[2019-10-27] MEDS: Metoprolol Tartrate 100 MG TAB PO SCH ×2 (09:11→21:46)
[2019-10-27] MEDS: Promethazine HCl 12.5 MG in Sodium Chloride 0.9% 50 ML IVPB PRN ×2 (10:04→17:33)
--- NOTE | 2019-10-27 10:48 | PRG ---
DATE OF SERVICE: 10/27/2019 SERVICE: Nephrology. SUBJECTIVE: A 48-year-old female with known history of CKD, diabetes, and hypertension, admitted due to worsening chest pain and shortness of breath. The patient was found to have abnormal stress test and subsequently had diagnostic cardiac catheterization, which showed occlusive cardiac disease. Post cardiac catheterization, the patient developed contrast-induced nephropathy with acute worsening of renal function. Renal function is improved close to baseline. However, cardiac catheterization with intervention is planned. No new problem. Denied nausea or vomiting. The patient has not had chest pain in the last 2 days. OBJECTIVE: VITAL SIGNS: Temperature 97.8, pulse 80, respiratory rate 18, SpO2 of 92% on room air, and blood pressure is 156/83. GENERAL: Obese female, in no obvious distress. Afebrile. Anicteric. Acyanotic. HEENT: Normocephalic and atraumatic. Oral mucosa is moist. CARDIOVASCULAR: Regular rhythm and rate with normal heart sounds one and two. RESPIRATORY: Fair air entry bilaterally with few bibasilar crackles posteriorly. No rhonchi or use of accessory muscles was appreciated. GI: Obese, soft, nontender, and nondistended with normal bowel sounds. EXTREMITIES: Left BKA noted. Right lower extremity is grossly unremarkable with no edema or erythema. MAILER APPRENTICE: Conscious and alert and oriented x3 with appropriate mental status. Cranial nerves 2 through 12 are grossly intact. DIAGNOSTIC DATA: Chemistry showed sodium 139, potassium 4.9, chloride 109, CO2 of 24, BUN 43, creatinine 4.10, glucose 125, calcium 8.9, phosphorus 4.0, and albumin 3.2. ASSESSMENT: 1. Acute on chronic renal failure: Due to contrast-induced nephropathy. Improved towards baseline. 2. Chronic kidney disease, stage 4/5. 3. Complicated diabetes mellitus with nephropathy and peripheral artery disease status post left BKA. 4. Hypertension. 5. 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 6. Morbid obesity with presumed obstructive sleep apnea. 7. Hypertension: Control is acceptable. 8. Coronary artery disease with occlusion or stenosis of some vessels. Repeat cardiac catheterization is contemplated for intervention and stent placement. DISCUSSION: Given the patient has CKD 4/5 close to end-stage renal disease already prior to presentation, the association of occlusive coronary artery disease with recurrent chest pain makes this a very difficult situation. However, not addressing the coronary artery disease will lead to recurrent chest pain and the patient to have cardiac arrest. In view of these, it seems prudent and appropriate to continue with repeat cardiac catheterization with stent placement. The patient understands that this may tilt her over to being on hemodialysis continuously. She seems to appreciate the situation appropriately and wants to proceed. We will again start the patient on IV fluid and acetylcysteine once a day, has been scheduled for cardiac catheterization. We will also get creatinine clearance to assess current cardiac function at this time, which seems to be less than 15. We will continue current treatments and recheck renal function in the morning. We will have further discussion with Cardiac Service tomorrow morning. Job ID: [id number]
[2019-10-27] MEDS: HumaLOG 300 UNITS/3 ML VIAL SC PRN (11:24)
--- NOTE | 2019-10-27 13:15 | PDOC.CPN ---
- Subjective Date: 10/27/19 Time: 12:50 Interval history: Patient still with c/o intermittent CP. Worse with exertion. No SOB. - Review of Systems General: denies: fever/chills, weight/appetite/sleep changes, night sweats, fatigue Respiratory: denies: cough, congestion, shortness of breath, exercise intolerance Cardiovascular: reports: chest pain Gastrointestinal: denies: nausea, vomiting, diarrhea, constipation, abd pain, GI bleeding Musculoskeletal: denies: pain, tenderness, stiffness, swelling, arthritis/ arthralgias Neurological: denies: numbness, syncope, seizure, weakness - Objective Allergies/Adverse Reactions: Allergies Allergy/AdvReac Type Severity Reaction Status Date / Time codeine AdvReac Verified 06/05/17 03:31 Visit Medications: Current Medications Acetaminophen/Codeine Phosphate (Tylenol #3) 1 tab PO Q4H PRN PRN Reason: Mild Pain (1-3) Last Admin: 10/26/19 11:38 Dose: 1 tab Acetaminophen/Codeine Phosphate (Tylenol #3) 2 tab PO Q4H PRN PRN Reason: Moderate Pain (4-6) Last Admin: 10/27/19 10:24 Dose: 2 tab Amlodipine Besylate (Norvasc) 5 mg PO DAILY [facility] Last Admin: 10/27/19 09:10 Dose: 5 mg Aspirin (Ecotrin) 325 mg PO DAILY [facility] Last Admin: 10/27/19 09:10 Dose: 325 mg Atorvastatin Calcium (Lipitor) 40 mg PO HS [facility] Last Admin: 10/26/19 21:08 Dose: 40 mg Clonidine (Catapres) 0.1 mg PO BID PRN PRN Reason: SBP > 160 use second Dextrose/Water (Dextrose 50%) 25 gm SLOW IVP PRN PRN PRN Reason: Hypoglycemia Docusate Sodium (Colace) 100 mg PO BID [facility] Last Admin: 10/27/19 09:10 Dose: 100 mg Duloxetine HCl (Cymbalta) 60 mg PO DAILY [facility] Last Admin: 10/27/19 09:10 Dose: 60 mg Gabapentin (Neurontin) 300 mg PO DAILY [facility] Last Admin: 10/27/19 09:09 Dose: 300 mg Glucagon (Glucagon) 1 mg IM PRN PRN PRN Reason: Hypoglycemia Hydralazine HCl (Apresoline) 10 mg SLOW IVP Q4H PRN PRN Reason: SBP>180 Last Admin: 10/18/19 22:21 Dose: 10 mg Hydralazine HCl (Apresoline) 10 mg SLOW IVP Q6H PRN PRN Reason: SBP GREATER THAN 160 Last Admin: 10/24/19 11:11 Dose: 10 mg Hydralazine HCl (Apresoline) 25 mg PO TID [facility] Last Admin: 10/27/19 09:10 Dose: 25 mg Dextrose/Water (D5w) 1,000 mls @ 0 mls/hr IV .Q0M PRN PRN Reason: Hypoglycemia Insulin Glargine 80 units/ (Miscellaneous Medication) 0.8 mls @ 0 mls/hr SC [facility] Last Admin: 10/26/19 21:16 Dose: Not Given Promethazine HCl 12.5 mg/ (Sodium Chloride) 50.5 mls @ 202 mls/hr IVPB Q6H PRN PRN Reason: Nausea/vomiting use second Last Admin: 10/27/19 10:04 Dose: 50.5 mls Insulin Human Lispro (Humalog) 0 units SC .MILD SLIDING SCALE PRN PRN Reason: Mild Correctional Scale Last Admin: 10/27/19 11:24 Dose: 3 unit Labetalol HCl (Normodyne) 20 mg SLOW IVP Q4H PRN PRN Reason: SBP > 160 use third Last Admin: 10/24/19 13:39 Dose: 20 mg Metoprolol Tartrate (Lopressor) 50 mg PO BID [facility] Last Admin: 10/27/19 09:11 Dose: 50 mg Nitroglycerin (Nitrostat) 0.4 mg SL Q5MIN PRN PRN Reason: Chest Pain Last Admin: 10/23/19 16:27 Dose: 0.4 mg Nitroglycerin (Nitro-Dur 0.4mg/Hr Patch) 1 patch TD Q24HR [facility] Ondansetron HCl (Zofran Odt) 4 mg PO Q6H PRN PRN Reason: Nausea/Vomiting Last Admin: 10/22/19 18:13 Dose: 4 mg Polyethylene Glycol (Miralax) 17 gm PO DAILY [facility] Last Admin: 10/27/19 09:09 Dose: 17 gm Polyethylene Glycol (Miralax) 17 gm PO DAILYPRN PRN PRN Reason: Constipation Last Admin: 10/25/19 16:56 Dose: 17 gm Ranolazine (Ranexa) 500 mg PO BID [facility] Sevelamer Carbonate (Renvela) 800 mg PO TID-WM [facility] Last Admin: 10/27/19 11:24 Dose: 800 mg Sodium Bicarbonate (Bicarbonate, Sodium) 650 mg PO BID [facility] Last Admin: 10/27/19 09:10 Dose: 650 mg Sodium Chloride (Flush - Normal Saline) 10 ml IVF Q12HR [facility] Last Admin: 10/27/19 09:11 Dose: 10 ml Tramadol HCl (Ultram) 50 mg PO Q12H PRN PRN Reason: Pain Last Admin: 10/26/19 23:32 Dose: 50 mg Vital Signs & Weight: Vital Signs Temp Pulse Resp BP Pulse Ox 10/27/19 11:28 97.5 F L 74 16 146/71 H 94 L 10/27/19 07:52 97.8 F 80 18 156/83 H 92 L 10/27/19 04:00 96.8 F L 79 16 134/63 93 L Admit Weight 310 lb Weight 325 lb 1.6 oz - Quality Measures Condition: Coronary Artery Disease CV meds: Beta Elif: Yes, GADIEL/ARB: No (Held 2/2 CKD), Statin: Yes, ASA: Yes, Plavix/Effient/Brilinta: No, Anticoagulant: No - Medication Contraindications No Beta Elif reason: Beta elif not tolerated - Physical Exam General: alert & oriented x3, appears well HEENT: mucus membranes moist Neck: supple neck Cardiac: regular rate and rhythm Lungs: clear to auscultation, normal breath sounds Neuro: grossly intact Abdomen: soft, non-tender Extremities: no clubbing Skin: clear Musculoskeletal: normal range of motion, no pain - Labs Result Diagrams: 10/24/19 04:11 10/27/19 04:12 Troponin/CKMB CK-MB (CK-2) 2.3 ng/mL (0-6.6) 10/22/19 05:46 Troponin I 0.020 ng/mL (< 0.028) 10/23/19 17:19 - Assessment/Plan Assessment/Plan: 1. CAD with s/p LHC on 10/13/2019 with 40% stenosis in mid LAD, 90% in distal LAD, and 99% in Lt Cx after DM1. 3. HTN 4. Insulin-dependent DM 5. depression 6. Anemia 7. Sleep Apnea 8. PAD, history left BKA Will decrease Ranexa to 500mg BID given renal insufficiency. Change Isordil to nitro-patch to see if this helps with chest pain. Symptoms are somewhat atypical in nature. Cr up today. Would be high risk for angio. Hopefully can be treated medically. Would recommend continuation of Victoza at the time of discharge given history of ASCVD and benefit of CV risk reduction.
--- NOTE | 2019-10-27 13:53 | PDOC.HOSPP ---
- Subjective Encounter Date: 10/27/19 Encounter Time: 13:00 Subjective: Pt seen for followup re: chest pain. c/o constipation. - Objective Vital Signs & Weight: Vital Signs (12 hours) Temp Pulse Resp BP Pulse Ox 10/27/19 11:28 97.5 F L 74 16 146/71 H 94 L 10/27/19 07:52 97.8 F 80 18 156/83 H 92 L 10/27/19 04:00 96.8 F L 79 16 134/63 93 L Weight Admit Weight 310 lb Weight 325 lb 1.6 oz I&O: 10/26/19 10/27/19 10/28/19 06:59 06:59 06:59 Intake Total 4115 2130 Output Total 950 Balance 3165 2130 Result Diagrams: 10/24/19 04:11 10/28/19 04:04 Additional Labs: Accuchecks 10/27/19 10/27/19 10/26/19 10:48 06:25 20:05 POC Glucose 222 H 141 H 157 H 10/26/19 17:19 POC Glucose 158 H Labs and MARs reviewed by me EKG Reviewed by me: Yes (Tele: NSR) Hospitalist ROS - Review of Systems Cardiovascular: denies: chest pain, palpitations, orthopnea, paroxysmal noc. dyspnea, edema, light headedness Gastrointestinal: reports: constipation. denies: nausea, vomiting, abdominal pain, diarrhea, melena, hematochezia - Medication Medications: Active Medications Generic Name Dose Route Start Last Admin Trade Name Freq PRN Reason Stop Dose Admin Acetaminophen/Codeine Phosphate 1 tab 10/18/19 15:22 10/26/19 11:38 Tylenol #3 PO 1 tab Q4H PRN Administration Mild Pain (1-3) Acetaminophen/Codeine Phosphate 2 tab 10/18/19 15:22 10/27/19 10:24 Tylenol #3 PO 2 tab Q4H PRN Administration Moderate Pain (4-6) Amlodipine Besylate 5 mg 10/25/19 09:00 10/27/19 09:10 Norvasc PO 5 mg DAILY [facility] Administration Aspirin 325 mg 10/14/19 09:00 10/27/19 09:10 Ecotrin PO 325 mg DAILY [facility] Administration Atorvastatin Calcium 40 mg 10/18/19 21:00 10/26/19 21:08 Lipitor PO 40 mg HS [facility] Administration Docusate Sodium 100 mg 10/25/19 21:00 10/27/19 09:10 Colace PO 100 mg BID [facility] Administration Duloxetine HCl 60 mg 10/14/19 09:00 10/27/19 09:10 Cymbalta PO 60 mg DAILY [facility] Administration Gabapentin 300 mg 10/16/19 09:00 10/27/19 09:09 Neurontin PO 300 mg DAILY [facility] Administration Hydralazine HCl 10 mg 10/18/19 21:56 10/18/19 22:21 Apresoline SLOW IVP 10 mg Q4H PRN Administration SBP>180 Hydralazine HCl 10 mg 10/18/19 23:28 10/24/19 11:11 Apresoline SLOW IVP 10 mg Q6H PRN Administration SBP GREATER THAN 160 Hydralazine HCl 25 mg 10/20/19 09:00 10/27/19 09:10 Apresoline PO 25 mg TID [facility] Administration Insulin Glargine 80 units/ 0.8 mls @ 0 mls/hr 10/14/19 21:00 10/26/19 21:16 Miscellaneous Medication SC Not Given HS [facility] Promethazine HCl 12.5 mg/ 50.5 mls @ 202 mls/hr 10/18/19 23:29 10/27/19 10:04 Sodium Chloride IVPB 50.5 mls Q6H PRN Administration Nausea/vomiting use second Insulin Human Lispro 0 units 10/14/19 08:37 10/27/19 11:24 Humalog SC 3 unit .MILD SLIDING SCALE PRN Administration Mild Correctional Scale Labetalol HCl 20 mg 10/18/19 23:28 10/24/19 13:39 Normodyne SLOW IVP 20 mg Q4H PRN Administration SBP > 160 use third Metoprolol Tartrate 50 mg 10/20/19 07:33 10/27/19 09:11 Lopressor PO 50 mg BID [facility] Administration Nitroglycerin 0.4 mg 10/18/19 15:22 10/23/19 16:27 Nitrostat SL 0.4 mg Q5MIN PRN Administration Chest Pain Ondansetron HCl 4 mg 10/14/19 12:31 10/22/19 18:13 Zofran Odt PO 4 mg Q6H PRN Administration Nausea/Vomiting Polyethylene Glycol 17 gm 10/26/19 09:00 10/27/19 09:09 Miralax PO 17 gm DAILY [facility] Administration Polyethylene Glycol 17 gm 10/25/19 15:28 10/25/19 16:56 Miralax PO 17 gm DAILYPRN PRN Administration Constipation Sevelamer Carbonate 800 mg 10/22/19 12:00 10/27/19 11:24 Renvela PO 800 mg TID-WM PANCHO Administration Sodium Bicarbonate 650 mg 10/15/19 21:00 10/27/19 09:10 Bicarbonate, Sodium PO 650 mg BID [facility] Administration Sodium Chloride 10 ml 10/14/19 09:00 10/27/19 09:11 Flush - Normal Saline IVF 10 ml Q12HR [facility] Administration Tramadol HCl 50 mg 10/18/19 11:45 10/26/19 23:32 Ultram PO 50 mg Q12H PRN Administration Pain - Exam General - other findings: Morbid obesity Eye: anicteric sclera ENT: moist mucosa Neck: supple Heart: RRR Respiratory: CTAB, no rales Gastrointestinal: soft, non-tender Extremities - other findings: L prosthetic leg Psychiatric: normal affect, normal behavior Hosp A/P - Plan - Assessment (1) Chest pain Code(s): R07.9 - CHEST PAIN, UNSPECIFIED Status: Acute Qualifiers: Chest pain type: precordial pain Qualified Code(s): R07.2 - Precordial pain (2) Acute on chronic stage 4 renal failure Status: Chronic (3) HTN (hypertension) Code(s): I10 - ESSENTIAL (PRIMARY) HYPERTENSION Status: Chronic Qualifiers: Hypertension type: essential hypertension Qualified Code(s): I10 - Essential (primary) hypertension (4) Hyperlipidemia Code(s): E78.5 - HYPERLIPIDEMIA, UNSPECIFIED Status: Chronic Qualifiers: Hyperlipidemia type: unspecified Qualified Code(s): E78.5 - Hyperlipidemia , unspecified (5) Anxiety and depression Code(s): F41.8 - OTHER SPECIFIED ANXIETY DISORDERS Status: Chronic (6) Diabetes mellitus type II, uncontrolled Code(s): E11.65 - TYPE 2 DIABETES MELLITUS WITH HYPERGLYCEMIA Status: Chronic (6) Morbid obesity Status: Chronic - Plan Creatinine 4.10 today. Trial Lactulose for constipation Cardiology considering repeat cath when renal function improves. Depression mild, stable.
[2019-10-27] MEDS: Nitroglycerin 0.4mg/Hour PATCH TD SCH (14:25)
[2019-10-27] MEDS: traMADol HCl 50 MG TAB PO PRN (15:50)
--- NOTE | 2019-10-27 20:09 | RAD ---
CHEST ONE VIEW: History: Shortness of breath Comparison: 10-13-19 FINDINGS: Heart size is enlarged. There are no signs of overt edema. No focal infiltrative process. IMPRESSION: Cardiomegaly without evidence of overt edema. POS: BETY
[2019-10-27] MEDS: Atorvastatin Calcium 40 MG TAB PO SCH (21:46)
[2019-10-27] MEDS: Insulin Glargine 80 UNITS in Pre-Filled Syringe 1 EACH SC SCH (21:49)
[2019-10-28] MEDS: Promethazine HCl 12.5 MG in Sodium Chloride 0.9% 50 ML IVPB PRN ×4 (00:33→23:38)
[2019-10-28 05:05] LABS: Anion Gap 13 mmol/L (10-20); BUN (Urea Nitrogen) 45 mg/dL (7.0-18.7); Calc. Creatinine Clearance 39 mL/min (70-130); Carbon Dioxide 22 mmol/L (22-29); Chloride 108 mmol/L (98-107); Estimated GFR-MDRD 12; Potassium 5.1 mmol/L (3.5-5.1); Sodium 138 mmol/L (136-145)
[2019-10-28 05:06] LABS: Albumin 3.1 g/dL (3.5-5.0); BUN/Creatinine Ratio 11.03; Calcium 8.5 mg/dL (7.8-10.44); Glucose 125 mg/dL (70-105)
--- NOTE | 2019-10-28 08:27 | PDOC.CPN ---
- Subjective Date: 10/28/19 Time: 08:30 Interval history: The pt seen and examined. No overnight events. No cardiac complaints. She had CP last night. She is on Nitro patch. Per the pt, she may have HD access for temporary HD. - Objective Allergies/Adverse Reactions: Allergies Allergy/AdvReac Type Severity Reaction Status Date / Time codeine AdvReac Verified 06/05/17 03:31 Visit Medications: Current Medications Acetaminophen/Codeine Phosphate (Tylenol #3) 1 tab PO Q4H PRN PRN Reason: Mild Pain (1-3) Last Admin: 10/26/19 11:38 Dose: 1 tab Acetaminophen/Codeine Phosphate (Tylenol #3) 2 tab PO Q4H PRN PRN Reason: Moderate Pain (4-6) Last Admin: 10/27/19 21:47 Dose: 2 tab Amlodipine Besylate (Norvasc) 5 mg PO DAILY [facility] Last Admin: 10/27/19 09:10 Dose: 5 mg Aspirin (Ecotrin) 325 mg PO DAILY [facility] Last Admin: 10/27/19 09:10 Dose: 325 mg Atorvastatin Calcium (Lipitor) 40 mg PO [facility] Last Admin: 10/27/19 21:46 Dose: 40 mg Clonidine (Catapres) 0.1 mg PO BID PRN PRN Reason: SBP > 160 use second Dextrose/Water (Dextrose 50%) 25 gm SLOW IVP PRN PRN PRN Reason: Hypoglycemia Docusate Sodium (Colace) 100 mg PO BID [facility] Last Admin: 10/27/19 21:47 Dose: 100 mg Duloxetine HCl (Cymbalta) 60 mg PO DAILY [facility] Last Admin: 10/27/19 09:10 Dose: 60 mg Gabapentin (Neurontin) 300 mg PO DAILY [facility] Last Admin: 10/27/19 09:09 Dose: 300 mg Glucagon (Glucagon) 1 mg IM PRN PRN PRN Reason: Hypoglycemia Hydralazine HCl (Apresoline) 10 mg SLOW IVP Q4H PRN PRN Reason: SBP>180 Last Admin: 10/18/19 22:21 Dose: 10 mg Hydralazine HCl (Apresoline) 10 mg SLOW IVP Q6H PRN PRN Reason: SBP GREATER THAN 160 Last Admin: 10/24/19 11:11 Dose: 10 mg Hydralazine HCl (Apresoline) 25 mg PO TID [facility] Last Admin: 10/27/19 21:46 Dose: 25 mg Dextrose/Water (D5w) 1,000 mls @ 0 mls/hr IV .Q0M PRN PRN Reason: Hypoglycemia Insulin Glargine 80 units/ (Miscellaneous Medication) 0.8 mls @ 0 mls/hr SC HS [facility] Last Admin: 10/27/19 21:49 Dose: Not Given Promethazine HCl 12.5 mg/ (Sodium Chloride) 50.5 mls @ 202 mls/hr IVPB Q6H PRN PRN Reason: Nausea/vomiting use second Last Admin: 10/28/19 00:33 Dose: 50.5 mls Insulin Human Lispro (Humalog) 0 units SC .MILD SLIDING SCALE PRN PRN Reason: Mild Correctional Scale Last Admin: 10/27/19 11:24 Dose: 3 unit Labetalol HCl (Normodyne) 20 mg SLOW IVP Q4H PRN PRN Reason: SBP > 160 use third Last Admin: 10/24/19 13:39 Dose: 20 mg Metoprolol Tartrate (Lopressor) 50 mg PO BID [facility] Last Admin: 10/27/19 21:46 Dose: 50 mg Nitroglycerin (Nitrostat) 0.4 mg SL Q5MIN PRN PRN Reason: Chest Pain Last Admin: 10/23/19 16:27 Dose: 0.4 mg Nitroglycerin (Nitro-Dur 0.4mg/Hr Patch) 1 patch TD Q24HR [facility] Last Admin: 10/27/19 14:25 Dose: 1 patch Ondansetron HCl (Zofran Odt) 4 mg PO Q6H PRN PRN Reason: Nausea/Vomiting Last Admin: 10/22/19 18:13 Dose: 4 mg Polyethylene Glycol (Miralax) 17 gm PO DAILY [facility] Last Admin: 10/27/19 09:09 Dose: 17 gm Polyethylene Glycol (Miralax) 17 gm PO DAILYPRN PRN PRN Reason: Constipation Last Admin: 10/25/19 16:56 Dose: 17 gm Ranolazine (Ranexa) 500 mg PO BID [facility] Last Admin: 10/27/19 21:46 Dose: 500 mg Sevelamer Carbonate (Renvela) 800 mg PO TID[facility] Last Admin: 10/27/19 17:02 Dose: 800 mg Sodium Bicarbonate (Bicarbonate, Sodium) 650 mg PO BID [facility] Last Admin: 10/27/19 21:46 Dose: 650 mg Sodium Chloride (Flush - Normal Saline) 10 ml IVF Q12HR [facility] Last Admin: 10/27/19 21:50 Dose: 10 ml Sodium Polystyrene Sulfonate (Kayexalate Oral Susp 15 Gm/60 Ml) 30 gm PO NOW [facility] Stop: 10/28/19 10:00 Tramadol HCl (Ultram) 50 mg PO Q12H PRN PRN Reason: Pain Last Admin: 10/27/19 15:50 Dose: 50 mg Vital Signs & Weight: Vital Signs Temp Pulse Resp BP BP BP Pulse Ox 10/28/19 07:48 97.9 F 80 15 153/80 H 95 10/28/19 04:00 97.8 F 79 21 H 141/77 H 97 10/28/19 00:00 98.2 F 80 20 145/80 H 97 10/27/19 21:46 78 139/67 Admit Weight 310 lb Weight 322 lb 4.8 oz - Quality Measures Condition: Coronary Artery Disease CV meds: Beta Elif: Yes, GADIEL/ARB: No (Held 2/2 CKD), Statin: Yes, ASA: Yes, Plavix/Effient/Brilinta: No, Anticoagulant: No - Medication Contraindications No Beta Elif reason: Beta elif not tolerated - Physical Exam General: alert & oriented x3 HEENT: mucus membranes moist Neck: supple neck Cardiac: regular rate and rhythm, S1/S2 Lungs: clear to auscultation Neuro: cranial nerve 2-12 intact Extremities: no edema, other: (Lt BKA) Skin: clear - Labs Result Diagrams: 10/24/19 04:11 10/28/19 04:04 Troponin/CKMB CK-MB (CK-2) 2.3 ng/mL (0-6.6) 10/22/19 05:46 Troponin I 0.020 ng/mL (< 0.028) 10/23/19 17:19 - Telemetry Sinus rhythms and dysrhythmias: sinus rhythm - Assessment/Plan Assessment/Plan: 1. CAD with s/p LHC on with 40% stenosis in mid LAD, 90% in distal LAD, and 99% in Lt Cx after DM1 - Plan for possible PTCA/stent to Lt Cx with stable renal function or medical management ; No CP this AM; On Ranexa 500 mg BID, Nitro patch, Metoprolol, ASA, and statin; 2. 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 3. HTN - stable 4. Insulin-dependent DM - managed by PCP 5. depression - 6. Anemia - unchanged 7. Sleep Apnea - the pt stated she will have Sleep study as outpt once she has insurance from November. 8. Hx of Lt BKA MAR reviewed Pt. seen and eval. by me. I agre with the A/P by the SPA EXPERIENCE COORDINATOR. I have discussed with nephrology and the concensus is that we proceed with PTCA/Stent to the l- circumflex. this is the likely culprit vessel of the chest discomfort and NSTEMI. I have discussed the procedure and risks to include bleeding,infection, [place], allergic reaction. complete renal failure or . She understands and agrees to proceed. Chest clear. RRR.
[2019-10-28] MEDS: hydrALAZINE 25 MG TAB PO SCH ×3 (09:14→21:21)
[2019-10-28] MEDS: Gabapentin 300 MG CAP PO SCH (09:14)
[2019-10-28] MEDS: Amlodipine 5 MG TAB PO SCH (09:15)
[2019-10-28] MEDS: Docusate 100 MG CAP PO SCH ×2 (09:15→21:21)
[2019-10-28] MEDS: Sodium Bicarbonate Tab 325 MG TAB PO SCH ×2 (09:15→21:21)
[2019-10-28] MEDS: Metoprolol Tartrate 100 MG TAB PO SCH ×2 (09:16→21:21)
[2019-10-28] MEDS: Sevelamer Carbonate 800 MG TAB PO SCH ×3 (09:16→17:31)
[2019-10-28] MEDS: Acetaminophen/Codeine 30-300mg Tablet PO PRN (09:16)
[2019-10-28] MEDS: Aspirin 325 mg Enteric Coated Tablet PO SCH (09:19)
[2019-10-28] MEDS: Polyethylene Glycol 3350 17 GM Packet PO SCH (09:19)
[2019-10-28] MEDS: DULoxetine 60 MG CAP PO SCH (09:19)
[2019-10-28 10:51] LABS: Body Surface Area 2.52
[2019-10-28 11:43] LABS: Creatinine, Urine 71.97 mg/dL (47-110)
--- NOTE | 2019-10-28 12:48 | STRESS ---
Acquisition Time: 2019-10-14 10:49:05 Total Exercise Time: 00:01:00 Test Indications: CHEST PAIN Medications: Protocol: LEXISCAN Max HR: 086 BPM 50% of Pred: 172 BPM Max BP: 164/100 mmHG Max Work Load: 1.0 METS RESTING ECG: NORMAL SINUS RHYTHM AT 75 BPM WITH COMPLETE RIGHT BUNDLE BRANCH BLOCK, LEFT AXIS DEVIATION, AND POOR R-WAVE PROGRESSION SYMPTOMS: NONE NORMAL BP RESPONSE ECTOPY: NONE ECG STRESS: NO SIGNIFICANT CHANGES INTERPRETATION: INDETERMINATE ECG/AWAIT NUCLEAR IMAGES FOR DEFINITIVE DIAGNOSIS Confirmed by TAHIR PENA ([id number]) on 10/28/2019 12:47:42 PM Referred By: MD Alana STEVENS Confirmed By:TAHIR PENA
[2019-10-28] MEDS: Nitroglycerin 0.4mg/Hour PATCH TD SCH (13:05)
[2019-10-28] MEDS ORDERED: Communication Order-Pharmacy FS SCH (13:15)
[2019-10-28] MEDS ORDERED: Acetylcysteine 20% 200 MG/ML 30 ML VIAL PO SCH (14:00)
--- NOTE | 2019-10-28 14:24 | PRG ---
DATE OF SERVICE: 10/28/2019 SERVICE: Nephrology. SUBJECTIVE: A 48-year-old female, admitted with worsening shortness of breath and chest pain. Found to have occlusive coronary artery disease. Cardiac catheterization with angioplasty is planned. Nephrology is following the patient for CKD, stage 5. No new problem. Denied nausea, vomiting, or abdominal pain. OBJECTIVE: VITAL SIGNS: Temperature 97.9, pulse 80, respiratory rate 15, SpO2 of 95 on room air, blood pressure is 153/80. GENERAL: Obese female, in no distress. Afebrile, anicteric, acyanotic. HEENT: Normocephalic and atraumatic. Oral mucosa is moist. CARDIOVASCULAR: Regular rhythm and rate with normal heart sounds 1 and 2. RESPIRATORY: Fair air entry bilaterally with few bibasilar crackles posteriorly. GI: Morbidly obese, soft, nontender, nondistended with normal bowel sounds. EXTREMITIES: Left BKA noted. Other extremities are grossly normal looking, atraumatic with no edema or erythema. SYSTEMS TECHNICIAN: Conscious, alert, oriented x3 with appropriate mental status. Cranial nerves 2 through 12 are grossly intact. DIAGNOSTIC DATA: Renal function panel showed sodium 138, potassium 5.1, chloride 108, CO2 of 22, BUN 45, creatinine 4.08, glucose 125, calcium 8.5, phosphorus 4.0, albumin 3.1. ASSESSMENT: 1. Chronic kidney disease, stage 5. 2. Acute on chronic kidney disease: Due to contrast induced nephropathy from prior diagnostic cardiac catheterization. Creatinine has improved and is back to baseline. 3. Occlusive coronary artery disease, needing repeat cardiac catheterization and intervention. 4. Morbid obesity. 5. Complicated diabetes with left below-knee amputation. 6. Nephrotic-range proteinuria: Most likely due to diabetic nephropathy. DISCUSSION: I went through problems again, especially it concerns, chronic kidney disease, stage 5 with high risk for contrast-induced nephropathy, given planned cardiac catheterization with possible stent placement. Given that the patient has advanced kidney disease, which will be requiring hemolytic therapy in no distant time and the fact that the patient has occlusive disease with recurrent chest pain, the patient elected to proceed with cardiac catheterization, knowing full well that it may imply that she will be on hemodialysis sooner rather than later. PLAN: 1. We will start IV fluid normal saline at 225 mL/hour now, to continue during the procedure and after. 2. We will also start acetylcysteine by mouth. 3. We will recheck renal function test in the morning. 4. Care plan was discussed with Cardiology and the patient is tentatively scheduled for cardiac catheterization tomorrow. We will also continue current antihypertensives. We will avoid RAAS michelle at this time. We will also await results of creatinine clearance. Job ID: [id number]
[2019-10-28] MEDS: Sodium Chloride 0.9% 1,000 ML IV SCH ×2 (15:48→23:56)
[2019-10-28] MEDS ORDERED: traMADol HCl 50 MG TAB PO PRN (16:11)
--- NOTE | 2019-10-28 19:00 | PDOC.HOSPP ---
- Subjective Encounter Date: 10/28/19 Encounter Time: : Subjective: Pt seen for followup re: chest pain. c/o constipation. - Objective Vital Signs & Weight: Vital Signs (12 hours) Temp Pulse Resp BP Pulse Ox 10/28/19 15:43 98.2 F 79 18 149/73 H 96 10/28/19 11:51 98.1 F 84 15 158/81 H 97 10/28/19 07:48 97.9 F 80 15 153/80 H 95 Weight Admit Weight 310 lb Weight 322 lb 4.8 oz I&O: 10/27/19 10/28/19 10/29/19 06:59 06:59 06:59 Intake Total 2130 900 Output Total 1475 Balance 2130 -575 Result Diagrams: 10/24/19 04:11 10/28/19 04:04 Additional Labs: Accuchecks 10/28/19 10/28/19 10/28/19 17:47 10:26 05:58 POC Glucose 164 H 188 H 131 H 10/27/19 20:13 POC Glucose 161 H Labs and MARs reviewed by me EKG Reviewed by me: Yes (Tele; NSR) Hospitalist ROS - Review of Systems Cardiovascular: denies: chest pain, palpitations, orthopnea, paroxysmal noc. dyspnea, edema, light headedness Gastrointestinal: reports: constipation Genitourinary: denies: dysuria, frequency, incontinence, hematuria, retention - Medication Medications: Active Medications Generic Name Dose Route Start Last Admin Trade Name Freq PRN Reason Stop Dose Admin Amlodipine Besylate 5 mg 10/25/19 09:00 10/28/19 09:15 Norvasc PO 5 mg DAILY [facility] Administration Aspirin 325 mg 10/14/19 09:00 10/28/19 09:19 Ecotrin PO 325 mg DAILY [facility] Administration Atorvastatin Calcium 40 mg 10/18/19 21:00 10/27/19 21:46 Lipitor PO 40 mg HS [facility] Administration Docusate Sodium 100 mg 10/25/19 21:00 10/28/19 09:15 Colace PO 100 mg BID [facility] Administration Duloxetine HCl 60 mg 10/14/19 09:00 10/28/19 09:19 Cymbalta PO 60 mg DAILY [facility] Administration Gabapentin 300 mg 10/16/19 09:00 10/28/19 09:14 Neurontin PO 300 mg DAILY [facility] Administration Hydralazine HCl 10 mg 10/18/19 21:56 10/18/19 22:21 Apresoline SLOW IVP 10 mg Q4H PRN Administration SBP>180 Hydralazine HCl 10 mg 10/18/19 23:28 10/24/19 11:11 Apresoline SLOW IVP 10 mg Q6H PRN Administration SBP GREATER THAN 160 Hydralazine HCl 25 mg 10/20/19 09:00 10/28/19 14:25 Apresoline PO 25 mg TID [facility] Administration Insulin Glargine 80 units/ 0.8 mls @ 0 mls/hr 10/14/19 21:00 10/27/19 21:49 Miscellaneous Medication SC Not Given HS [facility] Promethazine HCl 12.5 mg/ 50.5 mls @ 202 mls/hr 10/18/19 23:29 10/28/19 17:31 Sodium Chloride IVPB 50.5 mls Q6H PRN Administration Nausea/vomiting use second Sodium Chloride 1,000 mls @ 125 mls/hr 10/28/19 14:00 10/28/19 15:48 Normal Saline 0.9% IV 1,000 mls .Q8H [facility] Administration Insulin Human Lispro 0 units 10/14/19 08:37 10/27/19 11:24 Humalog SC 3 unit .MILD SLIDING SCALE PRN Administration Mild Correctional Scale Labetalol HCl 20 mg 10/18/19 23:28 10/24/19 13:39 Normodyne SLOW IVP 20 mg Q4H PRN Administration SBP > 160 use third Metoprolol Tartrate 50 mg 10/20/19 07:33 10/28/19 09:16 Lopressor PO 50 mg BID [facility] Administration Miscellaneous Medication 25 mg 10/28/19 16:45 10/28/19 17:31 Movantik PO 10/28/19 19:00 25 mg NOW [facility] Administration Nitroglycerin 0.4 mg 10/18/19 15:22 10/23/19 16:27 Nitrostat SL 0.4 mg Q5MIN PRN Administration Chest Pain Nitroglycerin 1 patch 10/27/19 13:00 10/28/19 13:05 Nitro-Dur 0.4mg/Hr Patch TD 1 patch Q24HR [facility] Administration Ondansetron HCl 4 mg 10/14/19 12:31 02/04/20 18:13 Zofran Odt PO 4 mg Q6H PRN Administration Nausea/Vomiting Polyethylene Glycol 17 gm 10/26/19 09:00 10/28/19 09:19 Miralax PO 17 gm DAILY [facility] Administration Polyethylene Glycol 17 gm 10/25/19 15:28 10/25/19 16:56 Miralax PO 17 gm DAILYPRN PRN Administration Constipation Ranolazine 500 mg 10/27/19 21:00 10/28/19 09:15 Ranexa PO 500 mg BID [facility] Administration Sevelamer Carbonate 800 mg 10/22/19 12:00 10/28/19 17:31 Renvela PO 800 mg TID-[facility] Administration Sodium Bicarbonate 650 mg 10/15/19 21:00 10/28/19 09:15 Bicarbonate, Sodium PO 650 mg BID [facility] Administration Sodium Chloride 10 ml 10/14/19 09:00 10/28/19 09:36 Flush - Normal Saline IVF 10 ml Q12HR [facility] Administration Tramadol HCl 50 mg 10/28/19 16:11 10/28/19 17:30 Ultram PO 50 mg Q6H PRN Administration Mild-Moderate Pain (1-5) - Exam General - other findings: Morbid obesity ENT: normocephalic atraumatic Neck: no thyromegaly Heart: RRR Respiratory: CTAB Gastrointestinal: soft Extremities - other findings: s/p L BKA Skin: no rashes Psychiatric: normal affect, normal behavior Hosp A/P - Plan - Assessment (1) Chest pain Code(s): R07.9 - CHEST PAIN, UNSPECIFIED Status: Acute Qualifiers: Chest pain type: precordial pain Qualified Code(s): R07.2 - Precordial pain (2) Acute on chronic stage 4 renal failure Status: Chronic (3) HTN (hypertension) Code(s): I10 - ESSENTIAL (PRIMARY) HYPERTENSION Status: Chronic Qualifiers: Hypertension type: essential hypertension Qualified Code(s): I10 - Essential (primary) hypertension (4) Hyperlipidemia Code(s): E78.5 - HYPERLIPIDEMIA, UNSPECIFIED Status: Chronic Qualifiers: Hyperlipidemia type: unspecified Qualified Code(s): E78.5 - Hyperlipidemia , unspecified (5) Anxiety and depression Code(s): F41.8 - OTHER SPECIFIED ANXIETY DISORDERS Status: Chronic (6) Diabetes mellitus type II, uncontrolled Code(s): E11.65 - TYPE 2 DIABETES MELLITUS WITH HYPERGLYCEMIA Status: Chronic (6) Morbid obesity Status: Chronic - Plan Creatinine 4.08 today. Trial Relistor for constipation; lactulose did not work Cardiology considering repeat cath Depression mild, stable.
[2019-10-28] MEDS: Atorvastatin Calcium 40 MG TAB PO SCH (21:21)
[2019-10-28] MEDS: Insulin Glargine 80 UNITS in Pre-Filled Syringe 1 EACH SC SCH (21:22)
[2019-10-28] MEDS: traMADol HCl 50 MG TAB PO PRN (23:40)
[2019-10-29 05:46] LABS: #Basophils 0.1 thou/uL (0.0-0.2); #Eosinphils 0.6 thou/uL (0.0-0.7); #Lymphocytes 2.2 thou/uL (1.20-3.40); #Monocytes 0.5 thou/uL (0.11-0.59); #Neutrophils 5.9 thou/uL (1.40-6.50); %Basophils 0.8 % (0.0-1.0); %Eosinophils 6.8 % (0.0-10.0); %Lymphocytes 23.7 % (21.0-51.0); %Monocytes 5.8 % (0.0-10.0); %Neutrophils 62.9 % (42.0-75.0); Albumin 3.2 g/dL (3.5-5.0); Anion Gap 11 mmol/L (10-20); BUN (Urea Nitrogen) 41 mg/dL (7.0-18.7); BUN/Creatinine Ratio 10.96; Calc. Creatinine Clearance 42 mL/min (70-130); Calcium 8.5 mg/dL (7.8-10.44); Carbon Dioxide 22 mmol/L (22-29); Chloride 108 mmol/L (98-107); Estimated GFR-MDRD 13; Glucose 105 mg/dL (70-105); Mean Corpuscular HGB CONC 33.3 g/dL (32.0-36.0); Mean Corpuscular Hemoglobin 31.6 pg (27.0-31.0); Mean Corpuscular Volume 94.7 fL (78.0-98.0); Mean Platelet Volume 7.6 fL (7.4-10.4); Phosphorus 3.6 mg/dL (2.3-4.7); Platelet Count 195 thou/uL (130-400); Potassium 4.4 mmol/L (3.5-5.1); RBC Distribution Width 12.8 % (11.5-14.5); Red Blood Cell (RBC) Count 3.17 mill/uL (4.20-5.40); Sodium 137 mmol/L (136-145); White Blood Cell (WBC) Count 9.4 thou/uL (4.8-10.8)
[2019-10-29] MEDS: Acetylcysteine 20% 200 MG/ML 30 ML VIAL PO SCH ×4 (05:54→23:15)
[2019-10-29] MEDS: Polyethylene Glycol 3350 17 GM Packet PO SCH (05:57)
[2019-10-29] MEDS: Aspirin 325 mg Enteric Coated Tablet PO SCH (05:58)
[2019-10-29] MEDS: Docusate 100 MG CAP PO SCH ×2 (05:58→21:08)
[2019-10-29] MEDS: Sodium Bicarbonate Tab 325 MG TAB PO SCH ×2 (05:58→21:09)
[2019-10-29] MEDS: hydrALAZINE 25 MG TAB PO SCH ×3 (05:58→21:09)
[2019-10-29] MEDS: Gabapentin 300 MG CAP PO SCH (05:59)
[2019-10-29] MEDS: Sevelamer Carbonate 800 MG TAB PO SCH ×3 (05:59→18:19)
[2019-10-29] MEDS: DULoxetine 60 MG CAP PO SCH (05:59)
[2019-10-29] MEDS: Metoprolol Tartrate 100 MG TAB PO SCH ×2 (05:59→21:10)
[2019-10-29] MEDS: Amlodipine 5 MG TAB PO SCH (05:59)
[2019-10-29] MEDS: Sodium Chloride 0.9% 1,000 ML IV SCH ×3 (06:00→23:12)
[2019-10-29] MEDS: Promethazine HCl 12.5 MG in Sodium Chloride 0.9% 50 ML IVPB PRN ×2 (06:02→23:21)
[2019-10-29] MEDS ORDERED: Amlodipine 10 MG TAB PO SCH ×2 (06:05→09:00)
[2019-10-29] MEDS ORDERED: Amlodipine 5 MG TAB PO SCH (08:45)
--- NOTE | 2019-10-29 08:59 | PRG ---
DATE OF SERVICE: 10/29/2019 SERVICE: Nephrology. SUBJECTIVE: A 48-year-old female with chronic kidney disease, admitted due to chest pain and shortness of breath. The patient was found to have occlusive coronary artery disease on-diagnostic coronary angiogram. Repeat angiogram with intervention is planned for today. No new problem. Denied shortness of breath or chest pain. OBJECTIVE: VITAL SIGNS: Temperature 98.6, pulse 72, respiratory rate 15, SpO2 of 97% on room air, blood pressure 152/76. GENERAL: Obese female, in no distress. Afebrile. Anicteric. Acyanotic. HEENT: Normocephalic and atraumatic. Oral mucosa is moist. CARDIOVASCULAR: Regular rhythm and rate with normal heart sounds 1 and 2. RESPIRATORY: Good air entry bilaterally with few bibasilar crackles. No rhonchi or use of accessory muscles appreciated. GI: Obese, soft, nontender, nondistended with normal bowel sounds. EXTREMITIES: Left BKA noted. Other extremities are grossly normal with no edema or erythema. MAKE UP GIRL: Conscious, alert, and oriented x3 with appropriate mental status. Cranial nerves 2 through 12 are grossly intact. DIAGNOSTIC DATA: CBC showed WBC count of 9.4, hemoglobin of 10, MCV of 94.7, platelet of 195. Renal function panel today showed sodium 137, potassium 4.4, chloride 102, CO2 of 22, BUN 41, creatinine 3.74, glucose 105, calcium 8.5, phosphorus 3.6, albumin 3.2. ASSESSMENT: 1. Acute kidney injury: Due to contrast-induced nephropathy. Improved. Creatinine is down to 3.74, which is close to admission levels. 2. Chronic kidney disease stage 5: Most likely due to hypertensive nephrosclerosis as well as diabetic nephropathy and possible nonsteroidal anti-inflammatory drugs-induced nephropathy. 3. Occlusive coronary artery disease: For cardiac catheterization and angioplasty. 4. Diabetes mellitus. 5. Status post left below-knee amputation. 6. Hypertension: Control is fair, but suboptimal. 7. Nephrotic-range proteinuria. PLAN: 1. We will increase amlodipine to 10 mg p.o. daily to get adequate BP control. 2. We will continue IV fluid therapy as well as acetylcysteine for contrast-induced nephropathy prophylaxis. 3. We will continue to avoid renin-angiotensin system michelle. 4. We will continue to monitor renal function post cardiac catheterization. 5. Further treatment to follow depending on hospital course. Job ID: [id number]
[2019-10-29] MEDS ORDERED: Iopamidol 370 76% 100 ML VIAL ONE (10:56)
[2019-10-29] MEDS ORDERED: Heparin (Artline) 1,000 ML ONE (11:03)
[2019-10-29] MEDS ORDERED: Lidocaine 1% (PF) 30 ML VIAL ONE (11:03)
[2019-10-29] MEDS ORDERED: Midazolam HCl 2 mg/2 ml Vial ONE (11:37)
[2019-10-29] MEDS ORDERED: Heparin 10,000 UNITS/1 ML VIAL ONE (11:46)
[2019-10-29] MEDS ORDERED: Heparin (Artline) 500 ML ONE (11:50)
[2019-10-29] MEDS ORDERED: Morphine 2 MG/ML SYRINGE ONE (13:01)
[2019-10-29] MEDS ORDERED: traMADol HCl 50 MG TAB ONE (16:13)
[2019-10-29] MEDS: Nitroglycerin 0.4mg/Hour PATCH TD SCH (18:16)
[2019-10-29] MEDS: Atorvastatin Calcium 40 MG TAB PO SCH (21:09)
[2019-10-29] MEDS: Insulin Glargine 80 UNITS in Pre-Filled Syringe 1 EACH SC SCH (21:10)
[2019-10-30] MEDS: hydrALAZINE 20 MG/ML VIAL SLOW IVP PRN (01:36)
[2019-10-30] MEDS: traMADol HCl 50 MG TAB PO PRN ×3 (01:43→22:34)
[2019-10-30 04:19] LABS: ALT (SGPT) 9 U/L (8-55); AST (SGOT) 14 U/L (5-34); Albumin 2.9 g/dL (3.5-5.0); Alkaline Phosphatase 81 U/L (40-110); Anion Gap 12 mmol/L (10-20); BUN (Urea Nitrogen) 36 mg/dL (7.0-18.7); BUN/Creatinine Ratio 10.91; Bilirubin, Total 0.3 mg/dL (0.2-1.2); Calc. Creatinine Clearance 48 mL/min (70-130); Calcium 8.3 mg/dL (7.8-10.44); Carbon Dioxide 19 mmol/L (22-29); Chloride 110 mmol/L (98-107); Estimated GFR-MDRD 15; Globulin 3.2 g/dL (2.4-3.5); Glucose 128 mg/dL (70-105); Phosphorus 3.8 mg/dL (2.3-4.7); Potassium 4.4 mmol/L (3.5-5.1); Protein, Total 6.1 g/dL (6.0-8.3); Sodium 137 mmol/L (136-145)
--- NOTE | 2019-10-30 07:45 | PRG ---
DATE OF SERVICE: 10/30/2019 SERVICE: Nephrology. SUBJECTIVE: A 48-year-old female seen in followup for acute on chronic renal failure. The patient was admitted due to chest pain and found to have abnormal stress test and subsequently have diagnostic cardiac catheterization followed by contrast-induced nephropathy. Acute kidney function improved and the patient had a repeat cardiac catheterization gear towards intervention, but intervention could not be done again due to inability to thread guide through the stenotic area. No new problem. Denied shortness of breath, leg swelling, fever, or chest pain. OBJECTIVE: VITAL SIGNS: Temperature 98.1, pulse 75, respiratory rate 16, SpO2 of 95% on room air, and blood pressure 147/74. GENERAL: Obese female, in no distress. Afebrile. Anicteric. Acyanotic. HEENT: Normocephalic, atraumatic. Oral mucosa is moist. NECK: Supple with no JVD. CARDIOVASCULAR: Regular rhythm and rate with normal heart sounds 1 and 2. RESPIRATORY: Fair air entry bilaterally with no obvious crackle or rhonchi or use of accessory muscles. GASTROINTESTINAL: Obese, soft, nontender, nondistended with normal bowel sounds. EXTREMITIES: Left BKA noted. Other extremities are grossly normal looking, atraumatic with no edema or erythema. CENTRAL NERVOUS SYSTEM: Conscious and alert and oriented x3 with appropriate mental status. Cranial nerves II through XII are grossly intact. DIAGNOSTIC DATA: CMP today showed sodium 137, potassium 4.4, chloride 110, CO2 of 19, BUN 36, creatinine 3.3, glucose 128, calcium 8.3, phosphorus 3.8, total bilirubin 0.3, AST 14, ALT 9, alkaline phosphatase 81, total protein 6.1, albumin 2.9, and globulin 3.2. ASSESSMENT: 1. Acute kidney injury: Due to hemodynamic factors related to use of [id number] system michelle and volume contraction as well as contrast-induced nephropathy. Creatinine has improved. The patient had contrast study yesterday, but creatinine today is 3.3, which is lower than yesterday's level of 3.74. In fact, 3.3, is the lowest she has recorded since admission. 2. Chronic kidney disease, stage 4 and 5. 3. Hypertension. 4. Diabetes mellitus. 5. Nephrotic-range proteinuria of unclear etiology: Most likely due to diabetic nephropathy. 6. Occlusive coronary artery disease: Attempt at angioplasty yesterday was unsuccessful. 7. Morbid obesity with presumed obstructive sleep apnea. PLAN: We will continue IV fluid at normal saline 125 mL/h. We will continue to monitor renal function. There is no evidence of fluid overload at this time. We will continue antihypertensives and get adequate BP control. We will continue to avoid nephrotoxic agents including diuretics and RAAS blockers. We will also discuss with Cardiology to decide on the care plan moving forward. Job ID: [id number]
[2019-10-30] MEDS: Gabapentin 300 MG CAP PO SCH (08:57)
[2019-10-30] MEDS: Amlodipine 10 MG TAB PO SCH (08:57)
[2019-10-30] MEDS: DULoxetine 60 MG CAP PO SCH (08:57)
[2019-10-30] MEDS: Polyethylene Glycol 3350 17 GM Packet PO SCH (08:58)
[2019-10-30] MEDS: Aspirin 325 mg Enteric Coated Tablet PO SCH (08:58)
[2019-10-30] MEDS: Docusate 100 MG CAP PO SCH ×2 (08:58→21:19)
[2019-10-30] MEDS: hydrALAZINE 25 MG TAB PO SCH ×3 (08:58→21:20)
[2019-10-30] MEDS: Clopidogrel Bisulfate 75 MG TAB PO SCH (08:58)
[2019-10-30] MEDS: Sevelamer Carbonate 800 MG TAB PO SCH ×3 (08:58→18:17)
[2019-10-30] MEDS: Sodium Bicarbonate Tab 325 MG TAB PO SCH ×2 (08:58→21:20)
[2019-10-30] MEDS: Metoprolol Tartrate 100 MG TAB PO SCH ×2 (08:58→21:20)
[2019-10-30] MEDS: Promethazine HCl 12.5 MG in Sodium Chloride 0.9% 50 ML IVPB PRN ×3 (09:58→22:34)
[2019-10-30] MEDS: Sodium Chloride 0.9% 1,000 ML IV SCH ×3 (11:54→21:29)
[2019-10-30] MEDS: Acetylcysteine 20% 200 MG/ML 30 ML VIAL PO SCH (11:54)
--- NOTE | 2019-10-30 12:04 | PDOC.CPN ---
- Subjective Date: 10/30/19 Time: 08:30 Interval history: The pt seen and examined. No overnight events. No cardiac complaints. Rt Fem site is SHAWNA without hematoma or drainage. - Objective Allergies/Adverse Reactions: Allergies Allergy/AdvReac Type Severity Reaction Status Date / Time codeine AdvReac Verified 06/05/17 03:31 Visit Medications: Current Medications Amlodipine Besylate (Norvasc) 10 mg PO DAILY [facility] Last Admin: 10/30/19 08:57 Dose: 10 mg Aspirin (Ecotrin) 325 mg PO DAILY [facility] Last Admin: 10/30/19 08:58 Dose: 325 mg Atorvastatin Calcium (Lipitor) 40 mg PO HS [facility] Last Admin: 10/29/19 21:09 Dose: 40 mg Clonidine (Catapres) 0.1 mg PO BID PRN PRN Reason: SBP > 160 use second Last Admin: 10/29/19 23:20 Dose: 0.1 mg Clopidogrel Bisulfate (Plavix) 75 mg PO DAILY [facility] Last Admin: 10/30/19 08:58 Dose: 75 mg Dextrose/Water (Dextrose 50%) 25 gm SLOW IVP PRN PRN PRN Reason: Hypoglycemia Docusate Sodium (Colace) 100 mg PO BID [facility] Last Admin: 10/30/19 08:58 Dose: 100 mg Duloxetine HCl (Cymbalta) 60 mg PO DAILY [facility] Last Admin: 10/30/19 08:57 Dose: 60 mg Gabapentin (Neurontin) 300 mg PO DAILY [facility] Last Admin: 10/30/19 08:57 Dose: 300 mg Glucagon (Glucagon) 1 mg IM PRN PRN PRN Reason: Hypoglycemia Hydralazine HCl (Apresoline) 10 mg SLOW IVP Q4H PRN PRN Reason: SBP>180 Last Admin: 10/18/19 22:21 Dose: 10 mg Hydralazine HCl (Apresoline) 10 mg SLOW IVP Q6H PRN PRN Reason: SBP GREATER THAN 160 Last Admin: 10/30/19 01:36 Dose: 10 mg Hydralazine HCl (Apresoline) 25 mg PO TID [facility] Last Admin: 10/30/19 08:58 Dose: 25 mg Dextrose/Water (D5w) 1,000 mls @ 0 mls/hr IV .Q0M PRN PRN Reason: Hypoglycemia Insulin Glargine 80 units/ (Miscellaneous Medication) 0.8 mls @ 0 mls/hr SC HS [facility] Last Admin: 10/29/19 21:10 Dose: Not Given Promethazine HCl 12.5 mg/ (Sodium Chloride) 50.5 mls @ 202 mls/hr IVPB Q6H PRN PRN Reason: Nausea/vomiting use second Last Admin: 10/30/19 09:58 Dose: 50.5 mls Sodium Chloride (Normal Saline 0.9%) 1,000 mls @ 125 mls/hr IV .Q8H [facility] Last Admin: 10/30/19 11:54 Dose: 1,000 mls Insulin Human Lispro (Humalog) 0 units SC .MILD SLIDING SCALE PRN PRN Reason: Mild Correctional Scale Last Admin: 10/27/19 11:24 Dose: 3 unit Labetalol HCl (Normodyne) 20 mg SLOW IVP Q4H PRN PRN Reason: SBP > 160 use third Last Admin: 10/24/19 13:39 Dose: 20 mg Metoprolol Tartrate (Lopressor) 100 mg PO BID [facility] Last Admin: 10/30/19 08:58 Dose: 100 mg Nitroglycerin (Nitrostat) 0.4 mg SL Q5MIN PRN PRN Reason: Chest Pain Last Admin: 10/23/19 16:27 Dose: 0.4 mg Nitroglycerin (Nitro-Dur 0.4mg/Hr Patch) 1 patch TD Q24HR [facility] Last Admin: 10/29/19 18:16 Dose: Not Given Ondansetron HCl (Zofran Odt) 4 mg PO Q6H PRN PRN Reason: Nausea/Vomiting Last Admin: 10/22/19 18:13 Dose: 4 mg Polyethylene Glycol (Miralax) 17 gm PO DAILY [facility] Last Admin: 10/30/19 08:58 Dose: 17 gm Polyethylene Glycol (Miralax) 17 gm PO DAILYPRN PRN PRN Reason: Constipation Last Admin: 10/25/19 16:56 Dose: 17 gm Ranolazine (Ranexa) 500 mg PO BID [facility] Last Admin: 10/30/19 08:57 Dose: 500 mg Sevelamer Carbonate (Renvela) 800 mg PO TID[facility] Last Admin: 10/30/19 11:53 Dose: 800 mg Sodium Bicarbonate (Bicarbonate, Sodium) 650 mg PO BID [facility] Last Admin: 10/30/19 08:58 Dose: 650 mg Sodium Chloride (Flush - Normal Saline) 10 ml IVF Q12HR [facility] Last Admin: 10/30/19 08:59 Dose: 10 ml Tramadol HCl (Ultram) 50 mg PO Q6H PRN PRN Reason: Mild-Moderate Pain (1-5) Last Admin: 10/28/19 17:30 Dose: 50 mg Tramadol HCl (Ultram) 100 mg PO Q6H PRN PRN Reason: Moderate to Severe Pain (6-10) Last Admin: 10/30/19 01:43 Dose: 100 mg Vital Signs & Weight: Vital Signs Temp Pulse Resp BP BP BP Pulse Ox 10/30/19 12:00 98.2 F 75 16 143/70 H 93 L 10/30/19 08:58 76 10/30/19 08:57 76 10/30/19 08:10 97.9 F 76 18 171/84 H 96 10/30/19 03:18 98.1 F 75 16 147/74 H 95 10/30/19 01:36 97 165/86 H 10/30/19 01:26 165/86 H Admit Weight 310 lb Weight 326 lb - Quality Measures Condition: Coronary Artery Disease CV meds: Beta Elif: Yes, GADIEL/ARB: No (Held 2/2 CKD), Statin: Yes, ASA: Yes, Plavix/Effient/Brilinta: No, Anticoagulant: No - Medication Contraindications No Beta Leif reason: Beta elif not tolerated - Physical Exam General: alert & oriented x3 HEENT: mucus membranes moist Neck: supple neck Cardiac: regular rate and rhythm, S1/S2 Lungs: clear to auscultation, decreased breath sounds Neuro: cranial nerve 2-12 intact Abdomen: unremarkable Skin: clear - Labs Result Diagrams: 10/29/19 04:22 10/30/19 03:29 Troponin/CKMB CK-MB (CK-2) 2.3 ng/mL (0-6.6) 10/22/19 05:46 Troponin I 0.020 ng/mL (< 0.028) 10/23/19 17:19 - Assessment/Plan Assessment/Plan: 1. CAD with s/p redo-LHC on 10/29/2019 with 50% stenosis in prox LAD, 90% in distal LAD, 70% in RCA-PL, and 100% in Lt Cx after DM1 with retrograde fill from Lt system (failed attempt PTCA to Lt Cx) - No CP; this AM; On Ranexa 500 mg BID, Nitro patch, Metoprolol, ASA, and statin; 2. 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 HTN - Metoprolol was increased to 100mg BID from this AM 4. Insulin-dependent DM - managed by PCP 5. depression - 6. Anemia - unchanged 7. Sleep Apnea - the pt stated she will have Sleep study as outpt once she has insurance from November. 8. Hx of Lt BKA 9. Nausea - possible Gastroparesis? MAR reviewed Pt. seen and eval. by me. She says that she is not feeling well today and thinks it may be due to the Versed that she received yesterday during the cardiac cath. She denies chest pain. I will continue medical treatment and in the future she may need intervention to the coronaries. Hopefully the renal function will stabalize.. chest clear, RRR, no edema. aide
[2019-10-30] MEDS: Nitroglycerin 0.4mg/Hour PATCH TD SCH (14:13)
--- NOTE | 2019-10-30 19:01 | PDOC.HOSPP ---
- Subjective Encounter Date: 10/30/19 Encounter Time: 08:40 Subjective: Pt seen for followup re: nausea and vomiting. Denies chest pain at this time. - Objective Vital Signs & Weight: Vital Signs (12 hours) Temp Pulse Resp BP BP Pulse Ox 10/30/19 15:53 77 10/30/19 15:43 98.2 F 77 18 142/74 H 92 L 10/30/19 12:00 98.2 F 75 16 143/70 H 93 L 10/30/19 08:58 76 10/30/19 08:57 76 10/30/19 08:10 97.9 F 76 18 171/84 H 96 Weight Admit Weight 310 lb Weight 326 lb I&O: 10/29/19 10/30/19 10/31/19 06:59 06:59 06:59 Intake Total 1120 800 Output Total 400 Balance 720 800 Result Diagrams: 10/29/19 04:22 10/30/19 03:29 Additional Labs: Accuchecks 10/30/19 10/30/19 10/30/19 16:48 10:55 05:35 POC Glucose 139 H 176 H 135 H 10/29/19 20:11 POC Glucose 190 H Labs and MARs reviewed by me EKG Reviewed by me: Yes (Tele: NSR) Hospitalist ROS - Review of Systems Cardiovascular: denies: chest pain, palpitations, orthopnea, paroxysmal noc. dyspnea, edema, light headedness Gastrointestinal: reports: nausea, vomiting. denies: abdominal pain, diarrhea, constipation, melena, hematochezia - Medication Medications: Active Medications Generic Name Dose Route Start Last Admin Trade Name Lew PRN Reason Stop Dose Admin Amlodipine Besylate 10 mg 10/30/19 09:00 10/30/19 08:57 Norvasc PO 10 mg DAILY [facility] Administration Aspirin 325 mg 10/14/19 09:00 10/30/19 08:58 Ecotrin PO 325 mg DAILY [facility] Administration Atorvastatin Calcium 40 mg 10/18/19 21:00 10/29/19 21:09 Lipitor PO 40 mg HS [facility] Administration Clonidine 0.1 mg 10/18/19 23:28 10/29/19 23:20 Catapres PO 0.1 mg BID PRN Administration SBP > 160 use second Clopidogrel Bisulfate 75 mg 10/30/19 09:00 10/30/19 08:58 Plavix PO 75 mg DAILY [facility] Administration Docusate Sodium 100 mg 10/25/19 21:00 10/30/19 08:58 Colace PO 100 mg BID [facility] Administration Duloxetine HCl 60 mg 10/14/19 09:00 10/30/19 08:57 Cymbalta PO 60 mg DAILY [facility] Administration Gabapentin 300 mg 10/16/19 09:00 10/30/19 08:57 Neurontin PO 300 mg DAILY [facility] Administration Hydralazine HCl 10 mg 10/18/19 21:56 10/18/19 22:21 Apresoline SLOW IVP 10 mg Q4H PRN Administration SBP>180 Hydralazine HCl 10 mg 10/18/19 23:28 10/30/19 01:36 Apresoline SLOW IVP 10 mg Q6H PRN Administration SBP GREATER THAN 160 Hydralazine HCl 25 mg 10/20/19 09:00 10/30/19 15:53 Apresoline PO 25 mg TID [facility] Administration Insulin Glargine 80 units/ 0.8 mls @ 0 mls/hr 10/14/19 21:00 10/29/19 21:10 Miscellaneous Medication SC Not Given HS [facility] Promethazine HCl 12.5 mg/ 50.5 mls @ 202 mls/hr 10/18/19 23:29 10/30/19 15:54 Sodium Chloride IVPB 50.5 mls Q6H PRN Administration Nausea/vomiting use second Sodium Chloride 1,000 mls @ 125 mls/hr 10/28/19 14:00 10/30/19 11:54 Normal Saline 0.9% IV 1,000 mls .Q8H [facility] Administration Insulin Human Lispro 0 units 10/14/19 08:37 10/27/19 11:24 Humalog SC 3 unit .MILD SLIDING SCALE PRN Administration Mild Correctional Scale Labetalol HCl 20 mg 10/18/19 23:28 10/24/19 13:39 Normodyne SLOW IVP 20 mg Q4H PRN Administration SBP > 160 use third Metoprolol Tartrate 100 mg 10/30/19 09:00 10/30/19 08:58 Lopressor PO 100 mg BID [facility] Administration Nitroglycerin 0.4 mg 10/18/19 15:22 10/23/19 16:27 Nitrostat SL 0.4 mg Q5MIN PRN Administration Chest Pain Nitroglycerin 1 patch 10/27/19 13:00 10/30/19 14:13 Nitro-Dur 0.4mg/Hr Patch TD 1 patch Q24HR [facility] Administration Ondansetron HCl 4 mg 10/14/19 12:31 10/22/19 18:13 Zofran Odt PO 4 mg Q6H PRN Administration Nausea/Vomiting Polyethylene Glycol 17 gm 10/26/19 09:00 10/30/19 08:58 Miralax PO 17 gm DAILY [facility] Administration Polyethylene Glycol 17 gm 10/25/19 15:28 10/25/19 16:56 Miralax PO 17 gm DAILYPRN PRN Administration Constipation Ranolazine 500 mg 10/27/19 21:00 10/30/19 08:57 Ranexa PO 500 mg BID [facility] Administration Sevelamer Carbonate 800 mg 10/22/19 12:00 10/30/19 18:17 Renvela PO 800 mg TID-[facility] Administration Sodium Bicarbonate 650 mg 10/15/19 21:00 10/30/19 08:58 Bicarbonate, Sodium PO 650 mg BID [facility] Administration Sodium Chloride 10 ml 10/14/19 09:00 10/30/19 08:59 Flush - Normal Saline IVF 10 ml Q12HR [facility] Administration Tramadol HCl 50 mg 10/28/19 16:11 10/28/19 17:30 Ultram PO 50 mg Q6H PRN Administration Mild-Moderate Pain (1-5) Tramadol HCl 100 mg 10/28/19 16:11 10/30/19 14:17 Ultram PO 100 mg Q6H PRN Administration Moderate to Severe Pain (6-10) - Exam General - other findings: Morbid obesity Eye: anicteric sclera ENT: no oropharyngeal lesions Neck: supple Heart: RRR Respiratory: CTAB Gastrointestinal: soft, non-tender Extremities - other findings: s/p L BKA Skin: no rashes Psychiatric: normal affect, normal behavior Hosp A/P - Plan out of bed/ambulate - Assessment (1) Nausea and vomiting Status: Acute (2) Acute on chronic stage 4 renal failure Status: Chronic (3) HTN (hypertension) Code(s): I10 - ESSENTIAL (PRIMARY) HYPERTENSION Status: Chronic Qualifiers: Hypertension type: essential hypertension Qualified Code(s): I10 - Essential (primary) hypertension (4) Hyperlipidemia Code(s): E78.5 - HYPERLIPIDEMIA, UNSPECIFIED Status: Chronic Qualifiers: Hyperlipidemia type: unspecified Qualified Code(s): E78.5 - Hyperlipidemia , unspecified (5) Anxiety and depression Code(s): F41.8 - OTHER SPECIFIED ANXIETY DISORDERS Status: Chronic (6) Diabetes mellitus type II, uncontrolled Code(s): E11.65 - TYPE 2 DIABETES MELLITUS WITH HYPERGLYCEMIA Status: Chronic (7) Morbid obesity Status: Chronic (8) CAD Status: Chronic - Plan Creatinine improved to 3.30 today Start Reglan for possible diabetic gastroparesis Pt had repeat cath, for medical management at this time. Depression mild, stable.
[2019-10-30] MEDS: Atorvastatin Calcium 40 MG TAB PO SCH (21:19)
[2019-10-30] MEDS: Metoclopramide HCl 10 MG TAB PO SCH (21:20)
[2019-10-30] MEDS: Insulin Glargine 80 UNITS in Pre-Filled Syringe 1 EACH SC SCH (21:29)
[2019-10-31 04:22] VITALS: BMI 49.0
[2019-10-31] MEDS: Sodium Chloride 0.9% 1,000 ML IV SCH (04:23)
[2019-10-31] MEDS: Promethazine HCl 12.5 MG in Sodium Chloride 0.9% 50 ML IVPB PRN ×2 (04:23→12:05)
[2019-10-31 04:24] LABS: Anion Gap 10 mmol/L (10-20); BUN (Urea Nitrogen) 37 mg/dL (7.0-18.7); BUN/Creatinine Ratio 10.69; Calc. Creatinine Clearance 47 mL/min (70-130); Calcium 8.2 mg/dL (7.8-10.44); Carbon Dioxide 22 mmol/L (22-29); Chloride 111 mmol/L (98-107); Estimated GFR-MDRD 14; Glucose 146 mg/dL (70-105); Phosphorus 4.1 mg/dL (2.3-4.7); Potassium 4.5 mmol/L (3.5-5.1); Sodium 138 mmol/L (136-145)
[2019-10-31] MEDS: DULoxetine 60 MG CAP PO SCH (09:14)
[2019-10-31] MEDS: Metoprolol Tartrate 100 MG TAB PO SCH (09:14)
[2019-10-31] MEDS: hydrALAZINE 25 MG TAB PO SCH ×2 (09:14→15:06)
[2019-10-31] MEDS: Docusate 100 MG CAP PO SCH (09:14)
[2019-10-31] MEDS: Clopidogrel Bisulfate 75 MG TAB PO SCH (09:14)
[2019-10-31] MEDS: Sevelamer Carbonate 800 MG TAB PO SCH ×3 (09:14→17:21)
[2019-10-31] MEDS: Gabapentin 300 MG CAP PO SCH (09:14)
[2019-10-31] MEDS: Polyethylene Glycol 3350 17 GM Packet PO SCH (09:15)
[2019-10-31] MEDS: Metoclopramide HCl 10 MG TAB PO SCH ×3 (09:15→17:21)
[2019-10-31] MEDS: Sodium Bicarbonate Tab 325 MG TAB PO SCH (09:15)
[2019-10-31] MEDS: Aspirin 325 mg Enteric Coated Tablet PO SCH (09:15)
[2019-10-31] MEDS: Amlodipine 10 MG TAB PO SCH (09:17)
--- NOTE | 2019-10-31 09:41 | PRG ---
DATE OF SERVICE: 10/31/2019 SERVICE: Nephrology. SUBJECTIVE: A 48-year-old female seen in followup for acute on chronic renal failure. The patient continued to complain of nausea, which is deemed to be related to gastroparesis. She denied chest pain or shortness of breath. OBJECTIVE: VITAL SIGNS: Temperature 98.1, pulse 77, respiratory rate 14, SpO2 of 93% on room air, blood pressure is 178/93. GENERAL: Obese female, in no distress. Afebrile. Anicteric. Acyanotic. HEENT: Normocephalic, atraumatic. Oral mucosa is moist. CARDIOVASCULAR: Regular rhythm and rate with normal heart sounds one and two. RESPIRATORY: Good air entry bilaterally with few transmitted breath sounds or crackles posteriorly. GI: Obese, soft, nontender, nondistended with normal bowel sounds. EXTREMITIES: Left BKA noted. Otherwise, extremities are grossly normal and atraumatic. 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 Cranial nerves 2 through 12 are grossly intact. DIAGNOSTIC DATA: Renal function panel today showed sodium 138, potassium 4.5, chloride 111, CO2 of 22, BUN 37, creatinine 3.46, glucose 146, calcium 8.2, phosphorus 4.1, albumin 3.0. ASSESSMENT: 1. Acute kidney injury: Multifactorial from hemodynamic factors as well as contrast induced nephropathy. Creatinine has improved. 2. Chronic kidney disease stage 4-5. 3. Hyperphosphatemia: Improved with Renvela. 4. Hypertension: Control is suboptimal. It is expected, however, to improve with discontinuation of IV fluids. 5. Coronary artery disease with significant stenosis. Attempt at intervention was unsuccessful. On medical management for now. 6. Diabetes mellitus. 7. 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 8. Morbid obesity with presumed obstructive sleep apnea. 9. Status post left below knee amputation. 10. Presumed diabetic gastroparesis. PLAN: 1. We will discontinue IV fluid therapy. 2. The patient can be discharged from Nephrology point of view. We will, however, avoid nephrotoxic agent including diuretics and RAAS michelle. The patient also was instructed to avoid NSAIDs. It is anticipated the patient will be going home on current medications including Renvela, sodium bicarbonate, and antihypertensives. We will see patient in followup on November 17 with repeat labs. Job ID: [id number]
--- NOTE | 2019-10-31 10:31 | PDOC.CPN ---
- Subjective Date: 10/31/19 Time: 08:30 Interval history: The pt seen and examined. No overnight events. No overnight events. No cardiac complaints. - Objective Allergies/Adverse Reactions: Allergies Allergy/AdvReac Type Severity Reaction Status Date / Time codeine AdvReac Verified 06/05/17 03:31 Visit Medications: Current Medications Amlodipine Besylate (Norvasc) 10 mg PO DAILY [facility] Last Admin: 10/31/19 09:17 Dose: 10 mg Aspirin (Ecotrin) 325 mg PO DAILY [facility] Last Admin: 10/31/19 09:15 Dose: 325 mg Atorvastatin Calcium (Lipitor) 40 mg PO HS [facility] Last Admin: 10/30/19 21:19 Dose: 40 mg Clonidine (Catapres) 0.1 mg PO BID PRN PRN Reason: SBP > 160 use second Last Admin: 10/29/19 23:20 Dose: 0.1 mg Clopidogrel Bisulfate (Plavix) 75 mg PO DAILY [facility] Last Admin: 10/31/19 09:14 Dose: 75 mg Dextrose/Water (Dextrose 50%) 25 gm SLOW IVP PRN PRN PRN Reason: Hypoglycemia Docusate Sodium (Colace) 100 mg PO BID [facility] Last Admin: 10/31/19 09:14 Dose: 100 mg Duloxetine HCl (Cymbalta) 60 mg PO DAILY [facility] Last Admin: 10/31/19 09:14 Dose: 60 mg Gabapentin (Neurontin) 300 mg PO DAILY [facility] Last Admin: 10/31/19 09:14 Dose: 300 mg Glucagon (Glucagon) 1 mg IM PRN PRN PRN Reason: Hypoglycemia Hydralazine HCl (Apresoline) 10 mg SLOW IVP Q4H PRN PRN Reason: SBP>180 Last Admin: 10/18/19 22:21 Dose: 10 mg Hydralazine HCl (Apresoline) 10 mg SLOW IVP Q6H PRN PRN Reason: SBP GREATER THAN 160 Last Admin: 10/30/19 01:36 Dose: 10 mg Hydralazine HCl (Apresoline) 25 mg PO TID [facility] Last Admin: 10/31/19 09:14 Dose: 25 mg Dextrose/Water (D5w) 1,000 mls @ 0 mls/hr IV .Q0M PRN PRN Reason: Hypoglycemia Insulin Glargine 80 units/ (Miscellaneous Medication) 0.8 mls @ 0 mls/hr SC HS [facility] Last Admin: 10/30/19 21:29 Dose: Not Given Promethazine HCl 12.5 mg/ (Sodium Chloride) 50.5 mls @ 202 mls/hr IVPB Q6H PRN PRN Reason: Nausea/vomiting use second Last Admin: 10/31/19 04:23 Dose: 50.5 mls Insulin Human Lispro (Humalog) 0 units SC .MILD SLIDING SCALE PRN PRN Reason: Mild Correctional Scale Last Admin: 10/27/19 11:24 Dose: 3 unit Labetalol HCl (Normodyne) 20 mg SLOW IVP Q4H PRN PRN Reason: SBP > 160 use third Last Admin: 10/24/19 13:39 Dose: 20 mg Metoclopramide HCl (Reglan) 10 mg PO [facility] Last Admin: 10/31/19 09:15 Dose: 10 mg Metoprolol Tartrate (Lopressor) 100 mg PO BID [facility] Last Admin: 10/31/19 09:14 Dose: 100 mg Nitroglycerin (Nitrostat) 0.4 mg SL Q5MIN PRN PRN Reason: Chest Pain Last Admin: 10/23/19 16:27 Dose: 0.4 mg Nitroglycerin (Nitro-Dur 0.4mg/Hr Patch) 1 patch TD Q24HR [facility] Last Admin: 10/30/19 14:13 Dose: 1 patch Ondansetron HCl (Zofran Odt) 4 mg PO Q6H PRN PRN Reason: Nausea/Vomiting Last Admin: 10/22/19 18:13 Dose: 4 mg Polyethylene Glycol (Miralax) 17 gm PO DAILY [facility] Last Admin: 10/31/19 09:15 Dose: Not Given Polyethylene Glycol (Miralax) 17 gm PO DAILYPRN PRN PRN Reason: Constipation Last Admin: 10/25/19 16:56 Dose: 17 gm Ranolazine (Ranexa) 500 mg PO BID [facility] Last Admin: 10/31/19 09:14 Dose: 500 mg Sevelamer Carbonate (Renvela) [address] Last Admin: 10/31/19 09:14 Dose: 800 mg Sodium Bicarbonate (Bicarbonate, Sodium) 650 mg PO BID [facility] Last Admin: 10/31/19 09:15 Dose: 650 mg Sodium Chloride (Flush - Normal Saline) 10 ml IVF Q12HR [facility] Last Admin: 10/31/19 09:15 Dose: 10 ml Tramadol HCl (Ultram) 50 mg PO Q6H PRN PRN Reason: Mild-Moderate Pain (1-5) Last Admin: 10/28/19 17:30 Dose: 50 mg Tramadol HCl (Ultram) 100 mg PO Q6H PRN PRN Reason: Moderate to Severe Pain (6-10) Last Admin: 10/30/19 22:34 Dose: 100 mg Vital Signs & Weight: Vital Signs Temp Pulse Resp BP Pulse Ox 10/31/19 07:43 98.1 F 77 14 178/93 H 93 L 10/31/19 04:00 97.5 F L 75 14 153/75 H 94 L 10/30/19 23:35 98 F 74 16 136/74 95 Admit Weight 310 lb Weight 332 lb - Quality Measures Condition: Coronary Artery Disease CV meds: Beta Elif: Yes, GADIEL/ARB: No (Held 2/2 CKD), Statin: Yes, ASA: Yes, Plavix/Effient/Brilinta: No, Anticoagulant: No - Medication Contraindications No Beta Elif reason: Beta elif not tolerated - Physical Exam General: alert & oriented x3 Neck: supple neck Cardiac: regular rate and rhythm, S1/S2 Lungs: clear to auscultation, decreased breath sounds Neuro: cranial nerve 2-12 intact Extremities: no edema - Labs Result Diagrams: 10/29/19 04:22 10/31/19 03:26 Troponin/CKMB CK-MB (CK-2) 2.3 ng/mL (0-6.6) 10/22/19 05:46 Troponin I 0.020 ng/mL (< 0.028) 10/23/19 17:19 - Telemetry Sinus rhythms and dysrhythmias: sinus rhythm - Assessment/Plan Assessment/Plan: 1. CAD with s/p redo-LHC on 10/29/2019 with 50% stenosis in prox LAD, 90% in distal LAD, 70% in RCA-PL, and 100% in Lt Cx after DM1 with retrograde fill from Lt system (failed attempt PTCA to Lt Cx) - No CP; On Ranexa 500 mg BID, Nitro patch, Metoprolol, ASA, and statin; 2. KAY on CKD -managed by pharmacy scheduler; 3. HTN - stable 4. Insulin-dependent DM - managed by PCP 5. depression - 6. Anemia - unchanged 7. Sleep Apnea - the pt stated she will have Sleep study as outpt once she has insurance from November. 8. Hx of Lt BKA 9. Nausea - possible Gastroparesis? MAR reviewed * From Cardiac standpoint, the pt is stable to d/c home. The pt will f/u with Dr Schroeder' office in 2 wks.
[2019-10-31] MEDS: traMADol HCl 50 MG TAB PO PRN (12:05)
[2019-10-31] MEDS: Nitroglycerin 0.4mg/Hour PATCH TD SCH (12:16)
[2019-10-31 16:17] VITALS: BP 134/74; TEMP 97.4
--- NOTE | 2019-10-31 19:47 | DIS ---
DATE OF ADMISSION: 10/13/2019 DATE OF DISCHARGE: 10/31/2019 PRIMARY CARE PROVIDER: [facility]. DISCHARGE DIAGNOSES: 1. Coronary artery disease. 2. Acute on chronic stage 4 renal failure. 3. Hyperkalemia. CONDITION OF PATIENT ON THE DAY OF DISCHARGE: Stable. I assessed Ms. Wilkes on the day of discharge. She denies any chest pain or shortness of breath. Vital signs are stable. S1 and S2 are heard, regular. Lungs are clear to auscultation bilaterally. CONSULTATIONS DURING THIS HOSPITALIZATION: Nephrology, Dr. Hernandez and Cardiology, Dr. Schroeder. POST-ACUTE CARE FOLLOWUP: With primary care provider in 3 days, with Dr. Hernandez in 1 week, and with Dr. Schroeder in 2 weeks. DISCHARGE MEDICATIONS: 1. Cymbalta 60 mg daily. 2. Levemir units at bedtime. 3. Victoza 0.6 mg daily subcutaneously. 4. Nitroglycerin 1 patch every 24 hours. 5. Amlodipine 10 mg daily. 6. Aspirin 325 mg daily. 7. Lipitor 40 mg at bedtime. 8. Plavix 75 mg daily. 9. Gabapentin 300 mg daily. 10. Hydralazine 25 mg 3 times a day. 11. Lopressor 100 mg 2 times a day. 12. Ranexa 500 mg 2 times a day. 13. Renvela 800 mg 3 times a day. 14. Sodium bicarbonate 650 mg 2 times a day. HOSPITAL COURSE: Ms. Wilkes is a pleasant 48-year-old lady who was admitted to [facility] on 11/13/2019, for chest pain. Please refer to Dr. Lyons' history and physical note dated 10/14/2019, for further details. She had a nuclear stress test, which was abnormal. She was also seen by Cardiology Service regarding the abnormal nuclear stress test and by Nephrology Service for acute on chronic renal failure. Renal ultrasound on 10/15, was unremarkable. She had cardiac catheterization on 10/18/2019. She was found to have left circumflex lesion. It could not be stented during the procedure. She was monitored for renal function. She had repeat procedure, this time through femoral approach since the initial catheterization was through radial approach. The attempt to open the left circumflex failed. She has been recommended medical management. On the day of discharge, she has sodium of 138, potassium 4.5, blood urea nitrogen 37, creatinine 3.46, GFR is 14. Albumin is 3.0. Many thanks for allowing me to participate in your patient's care. Please feel free to contact me with any questions or concerns. DIET: Heart healthy, renal and diabetic. ACTIVITY: As tolerated. DISCHARGE DESTINATION: Home. TIME SPENT: Total amount of time spent coordinating this discharge: 32 minutes. Job ID: [id number]
--- NOTE | 2019-11-01 21:19 | PQF ---
[employer] Engine Testing Supervisor [employer] Winform Viewer LILLY LUCIO DAVID [id number] CLINICAL DOCUMENTATION CLARIFICATION FORM: POST DISCHARGE Addendum to original discharge summary date: ____ Late entry note date: __ DATE: 11/01/19 ATTN:Juancarlos Patton Please exercise your independent, professional judgment in responding to the clarification form. Clinical indicators are provided on the bottom of this form for your review Can you please further clarify the diagnosis of the patient? Please check appropriate box(s): HEART FAILURE: A. TYPE: [ ] Systolic / HFrEF [ ] Diastolic / HFpEF [ ] Combined Systolic / Diastolic B. ACUITY [ ] Acute [ ] Acute on Chronic [ ] Chronic [ x ] No CHF [ ] Other diagnosis [ ] Unable to determine In addition, please specify: Present on Admission (POA): [ ] Yes [ ] No [ ] Unable to determine For continuity of documentation, please document condition throughout progress notes and discharge summary. Thank You. CLINICAL INDICATORS - SIGNS / SYMPTOMS / LABS H and P pg.1- "Chest Pain" ED Provider pg.4- New Onset CHF Echocardiogram - Ejection fraction at 40-45% Echocardiogram- E/A flow reversal noted. Suggestive of diastolic dysfunction Cardiology PN 10/28 pg.4- this is likely culprit vessel of the chest discomfort and NSTEMI Laboratory- BNP 401.3H Laboratory 10/13 - Troponin 0.027, 0.086H, 0.020, 0.037H, 0.034H, 0.040H RISKS: CAD- DS pg.1 HTN- H and P pg.1 KAY on CKD 4 DS pg.1 DM- H and P pg.1 Morbid obesity Hospitalist PN TREATMENTS: LHC- Cardiac Lab Procedural Cardiology Consult Dr. Schroeder Cardiolite stress test 10/14 Stress test nuclear 10/14 TTE- Echocardiogram 10/17 IV Lasix- MAR (This form is maintained as a part of the permanent medical record) 2014 [email or web address] All Rights Reserved [email or web address]
--- NOTE | 2019-11-01 21:21 | PQF ---
[facility] Home Office Representative Crystal Reports Winform Viewer KHADIJAH LILLY OMAR PATTON [id number] CLINICAL DOCUMENTATION CLARIFICATION FORM: POST DISCHARGE Addendum to original discharge summary date: ____ Late entry note date: __ DATE: 11/01/19 ATTN: Omar Patton Please exercise your independent, professional judgment in responding to the clarification form. Clinical indicators are provided on the bottom of this form for your review Can you please further clarify if acute tubular necrosis is ruled in or ruled out? ATN [ ] Ruled in diagnosis [ ] Continue to treat [ ] Resolved [ x ] Ruled out diagnosis [ ] Cannot rule out diagnosis [ ] Other diagnosis [ ] Unable to determine In addition, please specify: Present on Admission (POA): [ ] Yes [ ] No [ ] Unable to determine For continuity of documentation, please document condition throughout progress notes and discharge summary. Thank You. CLINICAL INDICATORS - SIGNS / SYMPTOMS / LABS PN 2 Raymond ROD- pg.1- Acute kidney injury secondary to presumed acute tubular necrosis- dye induced PN Dr. Hernandez- Acute on chronic renal failure. Acute worsening felt to be contrast-induced nephropathy Laboratory- Creatinine 3.63, 3.67, 6.73, 4.67, 5.10,H DS pg.1- "acute on chronic CKD 4" RISK FACTORS CAD- DS pg.1 HTN- H and P pg.1 KAY on CKD 4 DS pg.1 DM- H and P pg.1 Morbid obesity Hospitalist PN TREATMENTS Creatinine Monitoring- Laboratory Nephrology Consult- DR. HERNANDEZ amd Dr. Rod IV Fluids- MAR (This form is maintained as a part of the permanent medical record) 2014 [employer]. All Rights Reserved Dimitris [email or web address]
--- NOTE | 2019-11-01 21:25 | PQF ---
[employer] Liquefaction Plant Operator Crystal Reports Winform Viewer LILLY LUCIO DAVID [id number] CLINICAL DOCUMENTATION CLARIFICATION FORM: POST DISCHARGE Addendum to original discharge summary date: ____ Late entry note date: __ DATE: 11/01/19 ATTN: Juancarlos Patton Please exercise your independent, professional judgment in responding to the clarification form. Clinical indicators are provided on the bottom of this form for your review Can you please further clarify if NSTEMI is ruled in or ruled out? NSTEMI [ x ] Ruled in diagnosis (please specify type) ____1____ [ ] Continue to treat [ x ] Resolved [ ] Ruled out diagnosis [ ] Cannot rule out diagnosis [ ] Other diagnosis [ ] Unable to determine In addition, please specify: Present on Admission (POA): [ x ] Yes [ ] No [ ] Unable to determine For continuity of documentation, please document condition throughout progress notes and discharge summary. Thank You. CLINICAL INDICATORS - SIGNS / SYMPTOMS / LABS Cardiology PN 10/28 pg.4- this is likely culprit vessel of the chest discomfort and NSTEMI Laboratory 10/13 - Troponin 0.027, 0.086H, 0.020, 0.037H, 0.034H, 0.040H H and P pg.1- "Chest Pain" DS pg.1- "CAD" ED Provider pg.4- New Onset CHF RISK FACTORS HTN- H and P pg.1 KAY on CKD 4 DS pg.1 DM- H and P pg.1 Morbid obesity Hospitalist PN TREATMENTS LHC- Cardiac Lab Procedural Cardiology Consult Dr. Schroeder Cardiolite stress test 10/14 Stress test nuclear 10/14 TTE- Echocardiogram 10/17 Troponin Monitoring- Laboratory (This form is maintained as a part of the permanent medical record) 2014 [facility]. All Rights Reserved [email or web address]
== END 2019-10-31 18:10 | disposition home or self-care (01) | DRG 281 ==
LOC: ERS 16:45 → OBSVTOIN 20:44 → 2SW 20:44 → 2NO 10-15 20:53
PROVIDERS: ADMIT Hospitalist; ATTEND Internal Medicine
PROC: 4A023N7 Measurement of Cardiac Sampling and Pressure, Left Heart, Percutaneous Approach (ICD-10-PCS; principal; 2019-10-29)
PROC: B2151ZZ Fluoroscopy of Left Heart using Low Osmolar Contrast (ICD-10-PCS; 2019-10-29)
PROC: B2111ZZ Fluoroscopy of Multiple Coronary Arteries using Low Osmolar Contrast (ICD-10-PCS; 2019-10-29)
DX: I21.4 Non-ST elevation (NSTEMI) myocardial infarction (principal); Z68.42 Body mass index [BMI] 45.0-49.9, adult; E87.2 Acidosis; F32.0 Major depressive disorder, single episode, mild; N25.81 Secondary hyperparathyroidism of renal origin; N18.5 Chronic kidney disease, stage 5; I12.0 Hypertensive chronic kidney disease with stage 5 chronic kidney disease or end stage renal disease; N17.9 Acute kidney failure, unspecified; I25.10 Atherosclerotic heart disease of native coronary artery without angina pectoris; E11.22 Type 2 diabetes mellitus with diabetic chronic kidney disease; E11.42 Type 2 diabetes mellitus with diabetic polyneuropathy; E87.5 Hyperkalemia; E11.65 Type 2 diabetes mellitus with hyperglycemia; E78.5 Hyperlipidemia, unspecified; E78.00 Pure hypercholesterolemia, unspecified; M79.7 Fibromyalgia; D63.1 Anemia in chronic kidney disease; G47.33 Obstructive sleep apnea (adult) (pediatric); E66.01 Morbid (severe) obesity due to excess calories; E11.43 Type 2 diabetes mellitus with diabetic autonomic (poly)neuropathy; K31.84 Gastroparesis; E11.649 Type 2 diabetes mellitus with hypoglycemia without coma; E83.39 Other disorders of phosphorus metabolism; N14.1 Nephropathy induced by other drugs, medicaments and biological substances; T50.8X5A Adverse effect of diagnostic agents, initial encounter; K59.00 Constipation, unspecified; Z96.652 Presence of left artificial knee joint; Z88.5 Allergy status to narcotic agent; Z79.4 Long term (current) use of insulin; Z79.899 Other long term (current) drug therapy; Z89.512 Acquired absence of left leg below knee; Z90.49 Acquired absence of other specified parts of digestive tract; Z90.710 Acquired absence of both cervix and uterus; Z87.891 Personal history of nicotine dependence; F41.9 Anxiety disorder, unspecified; M54.9 Dorsalgia, unspecified; G89.29 Other chronic pain; N20.0 Calculus of kidney; E11.51 Type 2 diabetes mellitus with diabetic peripheral angiopathy without gangrene
CPT/HCPCS: 36415; 36416; 71045; 71046; 76770; 76942; 78452; 80053; 80069; 81001; 82550; 82553; 82570; 82575; 83036; 83880; 83970; 84156; 84300; 84484; 85025; 85347; 93005; 93010; 93017; 93306; 93454; 93458; 94760; 96374; 96375; 99152; 99153; A9500; C1769; C1887; J0360; J1644; J1815; J1885; J1940; J2001; J2250; J2270; J2405; J2550; J2785; J7608; Q0162; Q9967

== ENCOUNTER 2019-11-07 15:18 | Inpatient (IN) | payer MEDICARE, SELFPAY ==
[2019-11-07 16:08] LABS: #Basophils 0.1 thou/uL (0.0-0.2); #Eosinphils 0.8 thou/uL (0.0-0.7); #Lymphocytes 2.1 thou/uL (1.20-3.40); #Monocytes 0.6 thou/uL (0.11-0.59); #Neutrophils 6.1 thou/uL (1.40-6.50); %Basophils 0.6 % (0.0-1.0); %Eosinophils 8.3 % (0.0-10.0); %Lymphocytes 21.4 % (21.0-51.0); %Monocytes 6.2 % (0.0-10.0); %Neutrophils 63.6 % (42.0-75.0); Hemoglobin 10.7 g/dL (12.0-16.0); Mean Corpuscular HGB CONC 33.7 g/dL (32.0-36.0); Mean Corpuscular Hemoglobin 31.4 pg (27.0-31.0); Mean Corpuscular Volume 93.3 fL (78.0-98.0); Mean Platelet Volume 7.7 fL (7.4-10.4); Platelet Count 237 thou/uL (130-400); RBC Distribution Width 12.9 % (11.5-14.5); White Blood Cell (WBC) Count 9.6 thou/uL (4.8-10.8)
--- NOTE | 2019-11-07 16:13 | RAD ---
PORTABLE CHEST: 11/07/19 HISTORY: Chest pain and shortness of breath. COMPARISON: A 10/27/19 study. Heart size is enlarged. Some mild vascular prominence but no overt interstitial edema. The retrocardi ac region is difficult to assess. There is increased density and some obscuration of the left hemidia phragm. The possibility of some infiltrate or effusion left base is not excluded. A PA and lateral ch est film would be suggested. IMPRESSION: Cardiomegaly with questionable increased retrocardiac density versus overlying soft tissue. A PA and lateral chest film would be helpful in assessment. POS: TPC
[2019-11-07 16:25] LABS: ALT (SGPT) 16 U/L (8-55); AST (SGOT) 13 U/L (5-34); Albumin 3.3 g/dL (3.5-5.0); Alkaline Phosphatase 106 U/L (40-110); Anion Gap 13 mmol/L (10-20); BUN (Urea Nitrogen) 41 mg/dL (7.0-18.7); Bilirubin, Total 0.3 mg/dL (0.2-1.2); Calc. Creatinine Clearance 0 mL/min (70-130); Calcium 8.8 mg/dL (7.8-10.44); Carbon Dioxide 23 mmol/L (22-29); Chloride 109 mmol/L (98-107); Estimated GFR-MDRD 14; Globulin 3.4 g/dL (2.4-3.5); Glucose 179 mg/dL (70-105); Potassium 4.3 mmol/L (3.5-5.1); Protein, Total 6.7 g/dL (6.0-8.3); Sodium 141 mmol/L (136-145)
[2019-11-07] MEDS ORDERED: Furosemide 20 MG/2 ML VIAL SLOW IVP SCH (21:15)
[2019-11-07] MEDS ORDERED: Acetaminophen 650 MG Suppository PR PRN (21:27)
[2019-11-07] MEDS ORDERED: Atorvastatin Calcium 40 MG TAB PO SCH (23:15)
[2019-11-07] MEDS ORDERED: Metoprolol Tartrate 100 MG TAB PO SCH (23:15)
[2019-11-07] MEDS ORDERED: hydrALAZINE 25 MG TAB PO SCH (23:15)
[2019-11-07] MEDS ORDERED: Dextrose 50% Abboject 50 ML SYRINGE SLOW IVP PRN (23:16)
[2019-11-07] MEDS ORDERED: Dextrose 5% in Water 1,000 ML IV PRN (23:16)
[2019-11-07] MEDS ORDERED: HumaLOG 300 UNITS/3 ML VIAL SC PRN (23:16)
[2019-11-07] MEDS: Acetaminophen 325 MG TAB PO PRN (23:40)
[2019-11-07] MEDS: Promethazine HCl 12.5 MG in Sodium Chloride 0.9% 50 ML IVPB PRN (23:49)
--- NOTE | 2019-11-08 01:36 | HP ---
TIME OF ASSESSMENT: 1900 hours. PRIMARY CARE PHYSICIAN: None. CHIEF COMPLAINT: Shortness of breath with exertion and chest pain. HISTORY OF PRESENT ILLNESS: Ms. Wilkes is a 48-year-old woman who has known coronary artery disease and recently discharged from the hospital, presenting with chest pain and progressive shortness of breath with exertion. The patient states the pain started today and was in the center of her chest, similar to what she experienced with her recent admission. She states the pain radiates to the right arm and she feels a heavy sensation in the right arm. She states the shortness of breath has been getting gradually worse with minimal exertion. She reports feeling "puffy all over." The patient has noted increasing swelling in the right lower extremity, particularly in her ankles. It tends to get worse when she is standing or when her legs are hanging. She denies any cough or hemoptysis. No fevers or chills. No calf tenderness. She feels generally unwell. The patient states the discomfort in her chest is a 4/10 in severity. The patient was recently admitted from October 13, 2019 until October 31, 2019. She was being followed by Cardiology due to an abnormal nuclear stress test and also followed by nephrology due to [id number] renal failure. The patient had a cardiac cath on October 18, 2019, which showed a left circumflex lesion that could not be stented. The initial procedure was done through a radial approach and a repeat procedure was done through a femoral approach with 2nd failed attempt to open the left circumflex. The patient was recommended medical management. She had the redo catheterization on October 29, 2019, noted to have 50% stenosis in proximal LAD, 90% in distal LAD and 70% in the RCA-PL and 100% in the left circumflex. She was advised to follow up with Dr. Schroeder and cleared for discharge on Ranexa, nitro patch, metoprolol, aspirin and statin. ED COURSE: In the emergency department, the patient underwent an EKG, which demonstrated first-degree AV block with complete right bundle-branch block. No ST changes or T-wave abnormalities. She had a chest x-ray done that showed cardiomegaly with questionable increased retrocardiac density versus overlying soft tissue. A PA and lateral chest film were advised, which ED physician will obtain. Of note, no aspirin was given as patient is already on 325 mg of aspirin daily. LABORATORY STUDIES: She did have laboratory studies done that showed a white count of 9.6, hemoglobin 10.7, hematocrit 31.7, platelets 237. Sodium 141, potassium 4.3, BUN 41, creatinine 3.46, GFR 14, glucose 179, calcium 8.8. LFTs unremarkable. Troponin negative. BNP 452.3, albumin 3.3. PAST MEDICAL HISTORY: 1. CAD. 2. Hypertension. 3. Type 2 diabetes. 4. Peripheral neuropathy. 5. Hyperlipidemia. 6. Fibromyalgia. 7. Anxiety. 8. Depression. PAST SURGICAL HISTORY: 1. Left knee surgery x4. 2. Back surgery x2. 3. Appendectomy. 4. Cholecystectomy. 5. x3. 6. Hysterectomy. 7. Lithotripsy on the left. 8. Left 4th toe removed. 9. Left leg below the knee amputation. 10. Right 3rd toe surgery. SOCIAL HISTORY: The patient lives at home with her family. Denies any alcohol consumption or illicit drug use. She reports smoking previously, but quit more than 10 years ago. ALLERGIES: 1. CODEINE. 2. DEMEROL. CURRENT MEDICATIONS: 1. Gabapentin. 2. Lantus. 3. Cymbalta. 4. Metoprolol tartrate. 5. Lisinopril. 6. Novolin. 7. Victoza. PHYSICAL EXAMINATION: GENERAL: The patient appears well developed, well nourished, in no acute distress. VITAL SIGNS: Temperature 98.3, pulse 80, blood pressure 156/86, respirations 16 , O2 saturation 98% on room air. HEENT: Normocephalic and atraumatic. Pupils are equal, round, and reactive to light. Sclerae icterus. Oropharynx is clear. NECK: Supple. No lymphadenopathy. LUNGS: Clear to auscultation bilaterally without wheezes, rales, or rhonchi. CARDIAC: Regular rate and rhythm. ABDOMEN: Soft, nontender, nondistended. Normoactive bowel sounds present. No guarding or rigidity. No renal angle tenderness. EXTREMITIES: Notable for swelling in the right lower extremity. No pitting edema. pulses strong and present in the right foot. The patient with left leg prosthesis. SKIN: Warm and dry. NEUROLOGIC: Alert and oriented x3. No neuro deficits on exam. INVESTIGATIONS: As mentioned above. IMPRESSION AND PLAN: Ms. Wilkes is a 48-year-old woman who is being admitted for management of the following. 1. Acute coronary syndrome rule out. The patient presenting with chest pain, known to have diffuse coronary artery disease with 100% blockage of the left circumflex with 2 failed attempts at stenting. Recommended medical management by Cardiology. Consult placed to Cardiology and we will continue to trend troponins. We will resume her medications once verified. 2. Shortness of breath on exertion. The patient had an echo done on October 17, 2019, which showed an EF of 40% to 45% with changes suggestive of diastolic dysfunction. Mild mitral regurgitation and tricuspid regurgitation present. Left atrium mildly dilated. No indication to repeat echo. The patient possibly showing signs of congestive heart failure exacerbation. Her BNP is elevated. Dr. Rockwell was advise giving one time dose of Lasix. 3. Consult in place to Heart failure Clinic. 4. Chronic kidney disease: Renal function appears stable compared to the previous admission. Consult placed to Nephrology. 5. Hypertension. Monitor blood pressure. Resume home medications once verified. 6. Diabetes mellitus. Resume home medications once verified. Monitor glucose and initiate sliding scale. 7. Hyperlipidemia. Resume home medications once verified. 8. Gastrointestinal prophylaxis with famotidine. 9. Code status, full. Surrogate decision maker is her son, Jm Castro. 10. The patient goes to [facility]. Case discussed with Dr. Rockwell who agrees with the plan of care as described above. Job ID: [id number] MTDD
[2019-11-08 04:59] LABS: #Basophils 0.1 thou/uL (0.0-0.2); #Eosinphils 0.8 thou/uL (0.0-0.7); #Lymphocytes 1.9 thou/uL (1.20-3.40); #Monocytes 0.7 thou/uL (0.11-0.59); #Neutrophils 5.6 thou/uL (1.40-6.50); %Lymphocytes 20.8 % (21.0-51.0); %Monocytes 7.8 % (0.0-10.0); %Neutrophils 61.4 % (42.0-75.0); Hemoglobin 9.7 g/dL (12.0-16.0); Mean Corpuscular HGB CONC 32.3 g/dL (32.0-36.0); Mean Corpuscular Hemoglobin 30.3 pg (27.0-31.0); Mean Corpuscular Volume 93.8 fL (78.0-98.0); Mean Platelet Volume 7.7 fL (7.4-10.4); Platelet Count 231 thou/uL (130-400); RBC Distribution Width 12.9 % (11.5-14.5); Red Blood Cell (RBC) Count 3.21 mill/uL (4.20-5.40); White Blood Cell (WBC) Count 9.2 thou/uL (4.8-10.8)
[2019-11-08 05:09] LABS: Anion Gap 12 mmol/L (10-20); BUN (Urea Nitrogen) 38 mg/dL (7.0-18.7); Calc. Creatinine Clearance 44 mL/min (70-130); Calcium 8.7 mg/dL (7.8-10.44); Carbon Dioxide 21 mmol/L (22-29); Chloride 110 mmol/L (98-107); Estimated GFR-MDRD 14; Glucose 177 mg/dL (70-105); Potassium 4.3 mmol/L (3.5-5.1); Sodium 139 mmol/L (136-145)
[2019-11-08] MEDS: Promethazine HCl 12.5 MG in Sodium Chloride 0.9% 50 ML IVPB PRN ×3 (06:23→22:10)
[2019-11-08] MEDS: Sodium Bicarbonate Tab 325 MG TAB PO SCH ×2 (08:09→21:24)
[2019-11-08] MEDS: Sevelamer Carbonate 800 MG TAB PO SCH ×3 (08:09→17:20)
[2019-11-08] MEDS: Gabapentin 300 MG CAP PO SCH (08:09)
[2019-11-08] MEDS: Aspirin 325 mg Enteric Coated Tablet PO SCH (08:09)
[2019-11-08] MEDS: Clopidogrel Bisulfate 75 MG TAB PO SCH (08:09)
[2019-11-08] MEDS: Metoprolol Tartrate 100 MG TAB PO SCH ×2 (08:09→21:36)
[2019-11-08] MEDS: Famotidine/PF 20 mg/2ml Vial SLOW IVP SCH (08:10)
[2019-11-08] MEDS: Guaifenesin DM 100-10/5 ML UDCUP PO PRN ×3 (08:10→21:37)
[2019-11-08] MEDS: hydrALAZINE 25 MG TAB PO SCH ×3 (08:10→21:36)
[2019-11-08] MEDS ORDERED: Amlodipine 10 MG TAB PO SCH (09:00)
[2019-11-08] MEDS ORDERED: Furosemide 40 MG/4 ML VIAL SLOW IVP SCH ×3 (09:30→14:00)
[2019-11-08] MEDS: HumaLOG 300 UNITS/3 ML VIAL SC PRN ×2 (11:30→17:20)
[2019-11-08] MEDS: Furosemide 100 MG/10 ML VIAL SLOW IVP SCH (14:02)
[2019-11-08] MEDS: Acetaminophen 325 MG TAB PO PRN ×2 (14:03→22:06)
--- NOTE | 2019-11-08 15:03 | CON ---
DATE OF CONSULTATION: PRIMARY MIXING ROLL OPERATOR: Cathryn Schroeder MD. REASON FOR CONSULTATION: Shortness of breath and chest pain. HISTORY OF PRESENT ILLNESS: Ms. Wilkes is a 48-year-old woman with history of coronary artery disease and renal failure stage 4, who also has congestive heart failure, admitted with increasing difficulty breathing and chest pain. Ms. Wilkes recently was hospitalized and underwent cardiac catheterization. Some effort was made to further revascularize her percutaneously, but that was not successful. She said at home she has been getting progressively more short of breath and retaining more, more fluid. Finally, she came to the emergency room with difficulty breathing as a predominant symptom, but also chest pain intermittently at rest. The patient is resting comfortably now. MEDICATIONS: At home, she was takin. Insulin. 2. Victoza. 3. Ranexa. 4. Amlodipine. 5. Atorvastatin. 6. Plavix. 7. Metoprolol. 8. Nitroglycerin patch. 9. Aspirin. 10. Sodium bicarbonate. REVIEW OF SYSTEMS: CONSTITUTIONAL: Positive for shortness of breath. VISION: No changes. HEARING: No changes. PULMONARY: Positive for shortness of breath. CARDIAC: As outlined above. GASTROINTESTINAL: No nausea, vomiting, or diarrhea. SKIN: No rashes. NEUROLOGIC: No unilateral weakness or numbness. PSYCHIATRIC: No unusual depression or anxiety. PHYSICAL EXAMINATION: GENERAL: This is a pleasant woman, 48 years of age, 5 feet 9 inches, 301 pounds. EYES: Sclerae nonicteric. MOUTH: Mucous membranes moist. NECK: Supple. No lymphadenopathy. LUNGS: Clear. CARDIAC: Normal S1 and normal S2. HEART: Sounds are distant. ABDOMEN: Obese and nontender. EXTREMITIES: Warm and dry. No clubbing or cyanosis. There is moderate edema. PERTINENT LABORATORY DATA: Hemoglobin is 9.7. Troponin level indeterminate at 0.25. BNP 452. Creatinine 3.41, which is near her baseline. ASSESSMENT: 1. Congestive heart failure with fluid retention and increased BNP. The heart failure appears to be systolic and diastolic mixed. 2. Stage 4 renal failure. 3. Coronary artery disease. PLAN: 1. Increase diuretics. She is not responding to Lasix 40 mg IV twice a day. 2. Continue antiplatelet drugs. 3. We will reduce amlodipine in view of the edema. 4. Further care dictated by hospital course. Job ID: [id number]
--- NOTE | 2019-11-08 18:38 | PDOC.HOSPP ---
- Subjective Encounter Date: 11/08/19 Encounter Time: 11:30 Subjective: The patient reported mild chest pain and SOB on exertion. She says it is always on the right side of her chest. Currently she feels SOB just walking to the door. She states she has not urinated much with the lasix - Objective Vital Signs & Weight: Vital Signs (12 hours) Temp Pulse Pulse Pulse Resp BP BP 11/08/19 15:35 98.2 F 80 16 11/08/19 15:19 67 147/76 H 11/08/19 11:37 98.3 F 67 14 11/08/19 11:10 68 75 136/76 11/08/19 08:22 75 74 167/86 H 11/08/19 08:10 72 174/77 H 11/08/19 07:29 97.7 F 72 18 BP BP Pulse Ox Pulse Ox Pulse Ox 11/08/19 15:35 178/84 H 94 L 11/08/19 15:19 11/08/19 11:37 147/76 H 95 11/08/19 11:10 140/77 97 11/08/19 08:22 163/88 H 96 96 11/08/19 08:10 11/08/19 07:29 174/77 H 95 Weight Admit Weight 306 lb 4.8 oz Weight 301 lb 14.4 oz I&O: 11/07/19 11/08/19 11/09/19 06:59 06:59 06:59 Intake Total 580 542 Output Total 1500 1425 Balance -920 -883 Result Diagrams: 11/08/19 04:39 11/08/19 04:39 Additional Labs: Accuchecks 11/08/19 11/08/19 11/07/19 16:26 10:38 22:35 POC Glucose 193 H 197 H 253 H Hospitalist ROS - Review of Systems Constitutional: denies: fever, chills - Medication Medications: Active Medications Generic Name Dose Route Start Last Admin Trade Name Freq PRN Reason Stop Dose Admin Acetaminophen 650 mg 11/07/19 21:27 11/08/19 14:03 Tylenol PO 650 mg Q4H PRN Administration Headache/Fever/Mild Pain (1-3) Aspirin 325 mg 11/08/19 09:00 11/08/19 08:09 Ecotrin PO 325 mg DAILY PANCHO Administration Clopidogrel Bisulfate 75 mg 11/08/19 09:00 11/08/19 08:09 Plavix PO 75 mg DAILY PANCHO Administration Famotidine 20 mg 11/08/19 09:00 11/08/19 08:10 Pepcid SLOW IVP 20 mg DAILY PANCHO Administration Furosemide 60 mg 11/08/19 14:00 11/08/19 14:02 Lasix SLOW IVP 60 mg 0600,1400 PANCHO Administration Gabapentin 300 mg 11/08/19 09:00 11/08/19 08:09 Neurontin PO 300 mg DAILY PANCHO Administration Guaifenesin/Dextromethorphan 15 ml 11/08/19 06:48 11/08/19 15:19 Robitussin Dm PO 15 ml Q4H PRN Administration Cough Hydralazine HCl 25 mg 11/08/19 09:00 11/08/19 15:19 Apresoline PO 25 mg TID PANCHO Administration Promethazine HCl 12.5 mg/ 50.5 mls @ 202 mls/hr 11/07/19 22:48 11/08/19 15:52 Sodium Chloride IVPB 50.5 mls Q6H PRN Administration Nausea/Vomiting Insulin Human Lispro 0 units 11/07/19 23:16 11/08/19 17:20 Humalog SC 2 unit .MODERATE SLIDING SC PRN Administration Moderate Correctional Scale Metoprolol Tartrate 100 mg 11/08/19 09:00 11/08/19 08:09 Lopressor PO 100 mg BID PANCHO Administration Ranolazine 500 mg 11/08/19 09:00 11/08/19 08:09 Ranexa PO 500 mg BID PANCHO Administration Sevelamer Carbonate 800 mg 11/08/19 08:00 11/08/19 17:20 Renvela PO 800 mg TID-WM PANCHO Administration Sodium Bicarbonate 650 mg 11/08/19 09:00 11/08/19 08:09 Bicarbonate, Sodium PO 650 mg BID PANCHO Administration - Exam General Appearance: NAD, awake alert Eye: PERRL, anicteric sclera ENT: normocephalic atraumatic, no oropharyngeal lesions Neck: no JVD Heart: RRR, no murmur, no gallops, no rubs Respiratory: CTAB, no wheezes, no rales, no ronchi Gastrointestinal: soft, non-tender, non-distended, normal bowel sounds Extremities: 1+ LE edema Skin: normal turgor, no lesions, no rashes Neurological: cranial nerve grossly intact, normal sensation to touch, no focal deficits, no new deficit Musculoskeletal: normal tone, normal strength, no muscle wasting Psychiatric: normal affect, normal behavior, A&O x 3, oriented to person Hosp A/P - Plan Chest x ray; cardiomegaly This is 48 year old female with CAD, hypertension, diabetes who presented with chest pain, SOB on exertion #Acute systolic/diastolic heart failure Chest pain - had recent ECHO showing EF 40-45% with combined systolic/diastolic dysfunction - lasix increased to 60 mg - troponin neg x 3 #CAD #Hypertension - continue metoprolol, aspirin, plavix, ranolazine #Diabetes - lantus 80 units qhs CKD - creatinine 3.4, stable ANemia - Hb 9.7 Code status: full code
[2019-11-08] MEDS ORDERED: Non-Formulary Item 1 EACH (Insulin Detemir 100 Units/Ml [Levemir] 80 UNIT) SQ SCH (21:00)
[2019-11-08] MEDS: Insulin Glargine 80 UNITS in Pre-Filled Syringe 1 EACH SC SCH (21:34)
[2019-11-08] MEDS: Atorvastatin Calcium 40 MG TAB PO SCH (21:36)
[2019-11-08] MEDS: traMADol HCl 50 MG TAB PO PRN (23:52)
--- NOTE | 2019-11-09 00:44 | CON ---
DATE OF CONSULTATION: CONSULTING PHYSICIAN: Giana Douglas MD REQUESTING PHYSICIAN: Dr. Samayoa. REASON FOR CONSULTATION: Advanced chronic kidney disease with hypervolemia. IMPRESSION: 1. Advanced chronic kidney disease stage 4/5. 2. Congestive heart failure with fluid overload. 3. Morbid obesity. 4. Hypertension, suboptimally controlled. PLAN: 1. Parenteral diuresis. If the patient does not respond with loop diuretic, we will likely augment the loop diuretic with metolazone. 2. We will hold sodium bicarbonate supplementation at this point due to retention with the sodium load involving sodium bicarbonate. 3. Renally dose all medications for low GFR. 4. Avoid potentially nephrotoxic agents. 5. The patient's renal dysfunction seems to be very advanced and it should be time for the patient's fruit picker to begin discussion as it renal replacement therapy (hemodialysis) at least planning towards access creation. We will defer to the patient's fruit picker, Dr. Hernandez to continue the discussion as an outpatient, but I did introduce the topic with the patient today. 6. Further management to be dependent on the clinical course. HISTORY OF PRESENT ILLNESS: History is that of 48-year-old female patient with advanced chronic kidney disease stage 4/5, recently hospitalized, re-presented here with features of congestive heart failure exacerbation. The patient seems to be doing okay on some diuretics. Hypertension, suboptimally controlled. As a result of the advanced nature of the kidney dysfunction, decision was taken to involve Renal in the management of this case. PAST MEDICAL HISTORY: Significant for chronic kidney disease stage 4/5, congestive heart failure, diabetes mellitus with diabetic nephropathy, nephrotic syndrome with nephrotic range proteinuria in the context of diabetic nephropathy, metabolic acidosis on sodium bicarbonate supplementation, hypertension, and coronary artery disease. MEDICATIONS: Reviewed and as documented on [employer]. FAMILY HISTORY: No family history of kidney disease according to the patient. SOCIAL HISTORY: Denies alcohol. Tobacco use about 10 years ago. ALLERGIES: TO CODEINE AND DEMEROL. REVIEW OF SYSTEMS: As documented in the body of the history. All the other systems were reviewed and found not to be significantly related to presenting illness. PHYSICAL EXAMINATION: VITAL SIGNS: The patient was noted with the following vital signs; afebrile, temperature 98.2, pulse 80, respiratory rate of 16, O2 saturation of 94% with blood pressure 178/84. HEENT: Unremarkable. CARDIOVASCULAR: First and second heart sounds were heard. RESPIRATORY: Clear to auscultation. DIGESTIVE: Revealed an obese abdomen. EXTREMITIES: Showed some peripheral edema. SKIN: No new gross rash. LYMPHATICS: No peripheral lymphadenopathy. SUMMARY: A 48-year-old female patient with advanced kidney disease as well as congestive heart failure, who presented here with shortness of breath and fluid overload. Thank you for this consultation. We will follow with you. Job ID: [id number]
[2019-11-09] MEDS: Promethazine HCl 12.5 MG in Sodium Chloride 0.9% 50 ML IVPB PRN ×3 (05:31→18:52)
[2019-11-09 05:48] LABS: Mean Corpuscular Hemoglobin 31.3 pg (27.0-31.0); Mean Platelet Volume 8.2 fL (7.4-10.4); Platelet Count 204 thou/uL (130-400); RBC Distribution Width 12.9 % (11.5-14.5); Red Blood Cell (RBC) Count 3.19 mill/uL (4.20-5.40)
[2019-11-09] MEDS: Furosemide 100 MG/10 ML VIAL SLOW IVP SCH (05:57)
[2019-11-09 06:03] LABS: ALT (SGPT) 13 U/L (8-55); AST (SGOT) 12 U/L (5-34); Albumin 3.1 g/dL (3.5-5.0); Alkaline Phosphatase 93 U/L (40-110); Anion Gap 14 mmol/L (10-20); BUN (Urea Nitrogen) 41 mg/dL (7.0-18.7); Bilirubin, Total 0.3 mg/dL (0.2-1.2); Calc. Creatinine Clearance 38 mL/min (70-130); Calcium 8.4 mg/dL (7.8-10.44); Carbon Dioxide 20 mmol/L (22-29); Chloride 109 mmol/L (98-107); Estimated GFR-MDRD 12; Globulin 3.3 g/dL (2.4-3.5); Glucose 199 mg/dL (70-105); Potassium 4.4 mmol/L (3.5-5.1); Protein, Total 6.4 g/dL (6.0-8.3); Sodium 139 mmol/L (136-145)
[2019-11-09] MEDS ORDERED: Amlodipine 10 MG TAB PO SCH (09:00)
[2019-11-09] MEDS: Famotidine/PF 20 mg/2ml Vial SLOW IVP SCH (09:31)
[2019-11-09] MEDS: Aspirin 325 mg Enteric Coated Tablet PO SCH (09:31)
[2019-11-09] MEDS: Gabapentin 300 MG CAP PO SCH (09:31)
[2019-11-09] MEDS: Sevelamer Carbonate 800 MG TAB PO SCH ×3 (09:31→16:46)
[2019-11-09] MEDS: Amlodipine 5 MG TAB PO SCH (09:31)
[2019-11-09] MEDS: hydrALAZINE 25 MG TAB PO SCH ×3 (09:31→21:59)
[2019-11-09] MEDS: Metoprolol Tartrate 100 MG TAB PO SCH ×2 (09:31→21:59)
[2019-11-09] MEDS: Clopidogrel Bisulfate 75 MG TAB PO SCH (09:32)
--- NOTE | 2019-11-09 10:30 | PRG ---
DATE OF SERVICE: 11/09/2019 SUBJECTIVE: Ms. Wilkes says she is breathing better, but she is not making much urine. OBJECTIVE: VITAL SIGNS: Her blood pressure is 169/90, pulse 70. LUNGS: Clear. CARDIAC: Normal S1, normal S2. ABDOMEN: Soft, nontender. EXTREMITIES: There is reduced edema. LABORATORY DATA: Her creatinine has gone up to 3.9, it was 3.4 yesterday. GFR is down to 12. ASSESSMENT: 1. Renal function, slightly worse, stage 4. 2. Diastolic congestive heart failure, seems to be clinically improved with less trouble breathing. PLAN: 1. We will give her any more Lasix today, then cut down to 20 mg q.12h. 2. Amlodipine was reduced in hopes of improving her perfusion in her kidneys and reducing the peripheral edema. Job ID: [id number]
[2019-11-09] MEDS: HumaLOG 300 UNITS/3 ML VIAL SC PRN (11:21)
[2019-11-09] MEDS: traMADol HCl 50 MG TAB PO PRN ×2 (12:33→18:51)
--- NOTE | 2019-11-09 14:06 | PRG ---
DATE OF SERVICE: 11/09/2019 SUBJECTIVE: The patient is seen and examined at the bedside. The patient feels slightly better. She has daily bowel movements. Her appetite is somewhat poor. OBJECTIVE: VITAL SIGNS: Blood pressure is 147/76, pulse is 67, respiratory rate is 14, O2 saturation is 95% on room air. Her temperature is 98.3. HEENT: Head is atraumatic and normocephalic. Eyes are PERRLA. Sclerae are nonicteric. Oral mucosa is moist. LUNGS: Breath sounds diminished at both bases. HEART: S1, S2 normal. No S3. No S4. No any murmur. ABDOMEN: Obese, soft, and nontender. EXTREMITIES: Left xphvw-swo-ping amputee status. Right lower extremity, 2+ peripheral edema. NEUROLOGIC: She is alert and oriented x4. There is no any motor deficits. LABORATORY DATA: Labs showed white count of 10.0, hemoglobin 10.0, hematocrit 29.4, platelet count is 204. Sodium of 139, potassium 4.4, chloride 109, CO2 of 20, BUN 41, creatinine 3.91, glycemia is ranging from 155 to 193, albumin 3.1. IMPRESSION: 1. Acute systolic and diastolic heart failure. Left ventricular ejection fraction estimated at 40% to 45%. Trading Floor Operator decreased the dose of amlodipine to 5 mg and decreased the dose on Lasix. 2. Coronary artery disease, chronic, stable. 3. Hypertension. Continue metoprolol, aspirin, Plavix, and ranolazine. We will increase the dose on hydralazine to 50 mg 3 times a day since her blood pressure is running on the higher side. 4. Diabetes mellitus, relatively better controlled on 80 units of long-acting insulin Lantus at bedtime. 5. Chronic kidney disease, stage 4. 6. Anemia, chronic, stable, secondary to chronic kidney disease. PLAN: As mentioned above, adjustment of her medications. At this point, we will continue diuresis and continue Accu-Cheks a.c. and at bedtime and long-acting insulin 80 units at bedtime. Job ID: [id number]
--- NOTE | 2019-11-09 17:22 | PRG ---
DATE OF SERVICE: 11/09/2019 SUBJECTIVE: The patient is not examined, noted with the following vital signs. OBJECTIVE: VITAL SIGNS: Afebrile, temperature 98.1, pulse 75, respiratory rate of 18, O2 saturation of 92%, and blood pressure of 152/78. HEENT: Unremarkable. CARDIOVASCULAR: First and second heart sounds were heard. RESPIRATORY: Clear to auscultation. DIGESTIVE: Benign abdomen. Positive bowel sounds. EXTREMITIES: No peripheral edema. SKIN: No new gross rash. LYMPHATICS: No peripheral lymphadenopathy. LABORATORY INVESTIGATION: Creatinine of 3.91, BUN of 41, bicarb of 20, potassium 4.4. IMPRESSION: 1. Advanced chronic kidney disease, stage 4/5. 2. Hypervolemia, on diuretics. 3. Morbid obesity. PLAN: 1. Continue with current management. However, if patient's diuresis begin to level off and the patient is too overtly hypovolemic, we will augment the loop diuretic with some thiazide. 2. Renally dose all medications. 3. Further management will be dependent on the clinical course. Job ID: [id number]
[2019-11-09] MEDS: Atorvastatin Calcium 40 MG TAB PO SCH (21:59)
[2019-11-09] MEDS: Insulin Glargine 80 UNITS in Pre-Filled Syringe 1 EACH SC SCH (21:59)
[2019-11-10] MEDS: HumaLOG 300 UNITS/3 ML VIAL SC PRN ×2 (05:51→21:51)
[2019-11-10] MEDS: traMADol HCl 50 MG TAB PO PRN ×3 (05:51→21:50)
[2019-11-10] MEDS: Promethazine HCl 12.5 MG in Sodium Chloride 0.9% 50 ML IVPB PRN ×3 (06:00→21:49)
[2019-11-10] MEDS ORDERED: Furosemide 20 MG/2 ML VIAL SLOW IVP SCH (06:00)
[2019-11-10] MEDS ORDERED: Nitroglycerin 0.4 MG TAB (25 Tab Bottle) ONE (07:38)
[2019-11-10 07:49] LABS: #Eosinphils 1.3 thou/uL (0.0-0.7); #Monocytes 0.8 thou/uL (0.11-0.59); #Neutrophils 6.4 thou/uL (1.40-6.50); %Basophils 0.4 % (0.0-1.0); %Eosinophils 12.8 % (0.0-10.0); %Lymphocytes 18.7 % (21.0-51.0); %Monocytes 7.7 % (0.0-10.0); %Neutrophils 60.3 % (42.0-75.0); Hemoglobin 11.1 g/dL (12.0-16.0); Mean Corpuscular HGB CONC 31.9 g/dL (32.0-36.0); Mean Corpuscular Hemoglobin 30.1 pg (27.0-31.0); Mean Corpuscular Volume 94.4 fL (78.0-98.0); Mean Platelet Volume 8.4 fL (7.4-10.4); Platelet Count 241 thou/uL (130-400); RBC Distribution Width 13.1 % (11.5-14.5); Red Blood Cell (RBC) Count 3.67 mill/uL (4.20-5.40); White Blood Cell (WBC) Count 10.5 thou/uL (4.8-10.8)
[2019-11-10 08:09] LABS: Anion Gap 16 mmol/L (10-20); BUN (Urea Nitrogen) 43 mg/dL (7.0-18.7); Calc. Creatinine Clearance 40 mL/min (70-130); Calcium 8.6 mg/dL (7.8-10.44); Carbon Dioxide 20 mmol/L (22-29); Chloride 109 mmol/L (98-107); Estimated GFR-MDRD 13; Glucose 126 mg/dL (70-105); Potassium 4.5 mmol/L (3.5-5.1); Sodium 140 mmol/L (136-145)
[2019-11-10] MEDS: Sevelamer Carbonate 800 MG TAB PO SCH ×3 (08:33→19:31)
[2019-11-10] MEDS: hydrALAZINE 25 MG TAB PO SCH ×3 (08:34→20:32)
[2019-11-10] MEDS: Amlodipine 5 MG TAB PO SCH (08:34)
[2019-11-10] MEDS: Gabapentin 300 MG CAP PO SCH (08:34)
[2019-11-10] MEDS: Metoprolol Tartrate 100 MG TAB PO SCH ×2 (08:34→20:32)
[2019-11-10] MEDS: Clopidogrel Bisulfate 75 MG TAB PO SCH (08:34)
[2019-11-10] MEDS: Aspirin 325 mg Enteric Coated Tablet PO SCH (08:34)
[2019-11-10] MEDS: Famotidine/PF 20 mg/2ml Vial SLOW IVP SCH (08:35)
[2019-11-10] MEDS ORDERED: Dextrose 50% Abboject 50 ML SYRINGE SLOW IVP PRN (10:10)
[2019-11-10] MEDS ORDERED: Dextrose 5% in Water 1,000 ML IV PRN (10:10)
[2019-11-10] MEDS ORDERED: Isosorbide Mononitrate (ER) 30 MG TAB PO SCH (10:45)
--- NOTE | 2019-11-10 12:01 | PRG ---
DATE OF SERVICE: 11/10/2019 SUBJECTIVE: The patient is seen and examined at the bedside. She developed some chest pain this morning, which was relieved with nitroglycerin. At the time of my visit, she does not complain about any chest pain anymore. Apparently, she gets those chest pains on and off, but quite sporadically. OBJECTIVE: VITAL SIGNS: Blood pressure is 137/73, pulse is 76, temperature is 97.5, respirations 20, and O2 saturation is 94% on room air. HEENT: Her head is atraumatic and normocephalic. Eyes are PERRLA. Sclerae are nonicteric. Oral mucosa is moist. NECK: Supple. LUNGS: Breath sounds diminished at both bases. HEART: S1 and S2 distant. No S3. No S4. ABDOMEN: Obese, soft, and nontender. EXTREMITIES: 1+ peripheral edema present on both lower and upper extremities. NEUROLOGIC: She is alert and oriented x4. There are no any motor or sensory deficits. LABORATORY DATA: Labs showed a white count of 10.5, hemoglobin 11.1, hematocrit 34.7, platelet count is 241,000. Sodium of 140, potassium 4.5, chloride 109, CO2 of 20, BUN 43, creatinine 3.60, glycemia is ranging from 155 to 280, and calcium is 8.6. IMPRESSION: 1. Acute systolic and diastolic heart failure. 2. Coronary artery disease with recurrent chest pain. The patient is started on Imdur 30 mg once a day to prevent the recurrence of this problem. We will continue the rest of the regimen. 3. Hypertension. Her hydralazine was increased yesterday to 50 mg three times a day and blood pressure this morning is 137/73, which is some improvement from what we saw yesterday. We will continue her Lasix as ordered by Dr. Hills. 4. Diabetes mellitus, still not well controlled. We will change her sliding scale to aggressive from moderate and continue her long-acting insulin to 80 units once a day. 5. Chronic kidney disease, stage 4. 6. Anemia, chronic, stable secondary to chronic kidney disease. Job ID: [id number]
--- NOTE | 2019-11-10 13:36 | PRG ---
DATE OF SERVICE: 11/10/2019 SUBJECTIVE: Ms. Wilkes that had some chest pain this morning. She was relieved with nitrates she tells me. She also feels more swollen. The diuretics were cut back yesterday in view of her renal insufficiency. OBJECTIVE: VITAL SIGNS: Her blood pressure 140/70, pulse 67 and regular. LUNGS: Clear. CARDIAC: Normal S1, S2. ABDOMEN: Obese, nontender. EXTREMITIES: No edema. LABORATORY DATA: Creatinine slightly better at 3.6. ASSESSMENT: 1. Coronary artery disease with recurrent angina. 2. Stage 4 renal failure with estimated GFR of 13. 3. Congestive heart failure, diastolic. PLAN: 1. We will go ahead and increase furosemide back to 40 mg twice a day. 2. Will be seen by Dr. Schroeder tomorrow. 3. She has been started back on nitrates. Job ID: [id number]
[2019-11-10] MEDS: Furosemide 40 MG/4 ML VIAL SLOW IVP SCH (14:40)
[2019-11-10] MEDS: Guaifenesin DM 100-10/5 ML UDCUP PO PRN (16:34)
[2019-11-10] MEDS: Atorvastatin Calcium 40 MG TAB PO SCH (20:32)
[2019-11-10] MEDS: Insulin Glargine 80 UNITS in Pre-Filled Syringe 1 EACH SC SCH (21:51)
[2019-11-11 04:45] LABS: Anion Gap 17 mmol/L (10-20); BUN (Urea Nitrogen) 48 mg/dL (7.0-18.7); Calc. Creatinine Clearance 38 mL/min (70-130); Calcium 8.7 mg/dL (7.8-10.44); Carbon Dioxide 20 mmol/L (22-29); Chloride 110 mmol/L (98-107); Estimated GFR-MDRD 13; Glucose 118 mg/dL (70-105); Potassium 4.6 mmol/L (3.5-5.1); Sodium 142 mmol/L (136-145)
[2019-11-11] MEDS: Promethazine HCl 12.5 MG in Sodium Chloride 0.9% 50 ML IVPB PRN ×2 (04:54→11:54)
[2019-11-11] MEDS: Furosemide 40 MG/4 ML VIAL SLOW IVP SCH ×2 (05:01→15:15)
--- NOTE | 2019-11-11 08:21 | PDOC.CPN ---
- Subjective Date: 11/11/19 Time: 08:27 Interval history: The pt seen and examined. No overnight events. No cardiac complaints. - Objective Allergies/Adverse Reactions: Allergies Allergy/AdvReac Type Severity Reaction Status Date / Time codeine AdvReac Verified 11/07/19 23:00 Visit Medications: Current Medications Acetaminophen (Tylenol) 650 mg PO Q4H PRN PRN Reason: Headache/Fever/Mild Pain (1-3) Last Admin: 11/08/19 22:06 Dose: 650 mg Acetaminophen (Tylenol) 650 mg NE Q4H PRN PRN Reason: Headache/Fever/Mild Pain (1-3) Amlodipine Besylate (Norvasc) 5 mg PO DAILY [facility] Last Admin: 11/10/19 08:34 Dose: 5 mg Aspirin (Ecotrin) 325 mg PO DAILY [facility] Last Admin: 11/10/19 08:34 Dose: 325 mg Atorvastatin Calcium (Lipitor) 40 mg PO HS [facility] Last Admin: 11/10/19 20:32 Dose: 40 mg Clopidogrel Bisulfate (Plavix) 75 mg PO DAILY [facility] Last Admin: 11/10/19 08:34 Dose: 75 mg Dextrose/Water (Dextrose 50%) 25 gm SLOW IVP PRN PRN PRN Reason: Hypoglycemia Famotidine (Pepcid) 20 mg SLOW IVP DAILY [facility] Last Admin: 11/10/19 08:35 Dose: 20 mg Furosemide (Lasix) 40 mg SLOW IVP 0600,1400 [facility] Last Admin: 11/11/19 05:01 Dose: 40 mg Gabapentin (Neurontin) 300 mg PO DAILY [facility] Last Admin: 11/10/19 08:34 Dose: 300 mg Glucagon (Glucagon) 1 mg IM PRN PRN PRN Reason: Hypoglycemia Guaifenesin/Dextromethorphan (Robitussin Dm) 15 ml PO Q4H PRN PRN Reason: Cough Last Admin: 11/10/19 16:34 Dose: 15 ml Hydralazine HCl (Apresoline) 50 mg PO TID [facility] Last Admin: 11/10/19 20:32 Dose: 50 mg Promethazine HCl 12.5 mg/ (Sodium Chloride) 50.5 mls @ 202 mls/hr IVPB Q6H PRN PRN Reason: Nausea/Vomiting Last Admin: 11/11/19 04:54 Dose: 50.5 mls Insulin Glargine 80 units/ (Miscellaneous Medication) 0.8 mls @ 0 mls/hr SC [facility] Last Admin: 11/10/19 21:51 Dose: 0.8 mls Dextrose/Water (D5w) 1,000 mls @ 0 mls/hr IV .Q0M PRN PRN Reason: Hypoglycemia Insulin Human Lispro (Humalog) 0 units SC .AGGRESSIVE SLIDING PRN PRN Reason: Aggressive Correctional Scale Last Admin: 11/10/19 21:51 Dose: 3 unit Isosorbide Mononitrate (Imdur Er) 30 mg PO DAILY [facility] Metoprolol Tartrate (Lopressor) 100 mg PO BID [facility] Last Admin: 11/10/19 20:32 Dose: 100 mg Liraglutide [Victoza (2-Ricardo] 0.6 Mg) 0 each SC DAILY [facility] Ranolazine (Ranexa) 500 mg PO BID [facility] Last Admin: 11/10/19 20:32 Dose: 500 mg Sevelamer Carbonate (Renvela) 800 mg PO TID[facility] Last Admin: 11/10/19 19:31 Dose: 800 mg Sodium Chloride (Flush - Normal Saline) 10 ml IVF Q12HR PRN PRN Reason: Saline Flush Last Admin: 11/08/19 21:36 Dose: 10 ml Sodium Chloride (Flush - Normal Saline) 10 ml IVF PRN PRN PRN Reason: Saline Flush Tramadol HCl (Ultram) 50 mg PO Q4H PRN PRN Reason: Moderate Pain (4-6) Last Admin: 11/10/19 21:50 Dose: 50 mg Vital Signs & Weight: Vital Signs Temp Pulse Resp BP BP Pulse Ox 11/11/19 07:58 98 F 76 20 178/94 H 98 11/11/19 04:00 97.7 F 76 16 161/77 H 98 11/10/19 20:32 74 160/79 H Admit Weight 306 lb 4.8 oz Weight 295 lb - Physical Exam General: alert & oriented x3 HEENT: mucus membranes moist Neck: supple neck Cardiac: regular rate and rhythm, S1/S2 Lungs: clear to auscultation, decreased breath sounds Neuro: cranial nerve 2-12 intact Extremities: 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 CAD - no CP at this moment; Cr level 3.8 today from 3.6 yesterday; on Metoprolol, ASA, Plavix, and Lipitor; not on GADIEL/ARB due to hx of CKD 2. Acute on Chronic combined HF with EF 40-45% and grade I dd - on BBlocker and Lasix; not on GADIEL/ARB due to hx of CKD KAY on CKD - managed by nutrition specialist (possible HD in future?) 3. HTN - will increase Norvasc from 5mg to 10mg qd from this AM 4. insulin-dependent DM 5. Anemia - stable 6. Sleep apnea 7. nausea - possible Gastroparesis? 8. Depression MAR reviewed Pt. seen and eval. by me. I agree with the A/P by the DANCE CRITIC. The chest pain that she describes is not typical for CAD. There is no edema this afternoon. I will recheck an echo and see if the LV syst. function has worsened. Chest clear. RRR. gjm
[2019-11-11] MEDS ORDERED: Amlodipine 5 MG TAB PO SCH (08:30)
[2019-11-11] MEDS: Isosorbide Mononitrate (ER) 30 MG TAB PO SCH (10:00)
[2019-11-11] MEDS: Clopidogrel Bisulfate 75 MG TAB PO SCH (10:00)
[2019-11-11] MEDS: Metoprolol Tartrate 100 MG TAB PO SCH ×2 (10:01→21:39)
[2019-11-11] MEDS: hydrALAZINE 25 MG TAB PO SCH ×3 (10:01→21:39)
[2019-11-11] MEDS: Sevelamer Carbonate 800 MG TAB PO SCH ×3 (10:02→18:30)
[2019-11-11] MEDS: Aspirin 325 mg Enteric Coated Tablet PO SCH (10:05)
[2019-11-11] MEDS: Gabapentin 300 MG CAP PO SCH (10:05)
[2019-11-11] MEDS: Famotidine/PF 20 mg/2ml Vial SLOW IVP SCH (10:06)
[2019-11-11] MEDS ORDERED: Amlodipine 10 MG TAB PO SCH (10:15)
[2019-11-11] MEDS: Amlodipine 5 MG TAB PO SCH (10:16)
[2019-11-11] MEDS: HumaLOG 300 UNITS/3 ML VIAL SC PRN ×2 (11:55→18:30)
--- NOTE | 2019-11-11 12:41 | PDOC.HOSPP ---
- Subjective Encounter Date: 11/11/19 Encounter Time: 12:00 Subjective: Patient complains of chronic nausea, would like to see a GI outpatient about this. SOB has improved over the hospitalization, but today a bit worse again. - Objective Vital Signs & Weight: Vital Signs (12 hours) Temp Pulse Resp BP Pulse Ox 11/11/19 10:16 76 11/11/19 10:14 76 11/11/19 10:01 76 11/11/19 07:58 98 F 76 20 178/94 H 98 11/11/19 04:00 97.7 F 76 16 161/77 H 98 Weight Admit Weight 306 lb 4.8 oz Weight 295 lb I&O: 11/10/19 11/11/19 11/12/19 06:59 06:59 06:59 Intake Total 1280 1440 Output Total 4000 Balance -2720 1440 Result Diagrams: 11/10/19 07:38 11/11/19 04:16 Additional Labs: Accuchecks 11/11/19 11/11/19 11/10/19 11:31 05:30 20:42 POC Glucose 176 H 136 H 191 H 11/10/19 12:40 POC Glucose 125 H Hospitalist ROS - Review of Systems Constitutional: denies: fever, chills Respiratory: reports: shortness of breath. denies: cough Cardiovascular: denies: chest pain, palpitations, orthopnea, edema Gastrointestinal: denies: nausea, vomiting, abdominal pain - Medication Medications: Active Medications Generic Name Dose Route Start Last Admin Trade Name Freq PRN Reason Stop Dose Admin Acetaminophen 650 mg 11/07/19 21:27 11/08/19 22:06 Tylenol PO 650 mg Q4H PRN Administration Headache/Fever/Mild Pain (1-3) Aspirin 325 mg 11/08/19 09:00 11/11/19 10:05 Ecotrin PO 325 mg DAILY [facility] Administration Atorvastatin Calcium 40 mg 11/08/19 21:00 11/10/19 20:32 Lipitor PO 40 mg HS [facility] Administration Clopidogrel Bisulfate 75 mg 11/08/19 09:00 11/11/19 10:00 Plavix PO 75 mg DAILY [facility] Administration Famotidine 20 mg 11/08/19 09:00 11/11/19 10:06 Pepcid SLOW IVP 20 mg DAILY [facility] Administration Furosemide 40 mg 11/10/19 14:00 11/11/19 05:01 Lasix SLOW IVP 40 mg 0600,1400 [facility] Administration Gabapentin 300 mg 11/08/19 09:00 11/11/19 10:05 Neurontin PO 300 mg DAILY [facility] Administration Guaifenesin/Dextromethorphan 15 ml 11/08/19 06:48 11/10/19 16:34 Robitussin Dm PO 15 ml Q4H PRN Administration Cough Hydralazine HCl 50 mg 11/09/19 15:00 11/11/19 10:01 Apresoline PO 50 mg TID [facility] Administration Promethazine HCl 12.5 mg/ 50.5 mls @ 202 mls/hr 11/07/19 22:48 11/11/19 04:54 Sodium Chloride IVPB 50.5 mls Q6H PRN Administration Nausea/Vomiting Insulin Glargine 80 units/ 0.8 mls @ 0 mls/hr 11/08/19 21:00 11/10/19 21:51 Miscellaneous Medication SC 0.8 mls HS [facility] Administration Insulin Human Lispro 0 units 11/10/19 10:10 11/10/19 21:51 Humalog SC 3 unit .AGGRESSIVE SLIDING PRN Administration Aggressive Correctional Scale Isosorbide Mononitrate 30 mg 11/11/19 09:00 11/11/19 10:00 Imdur Er PO 30 mg DAILY [facility] Administration Metoprolol Tartrate 100 mg 11/08/19 09:00 11/11/19 10:01 Lopressor PO 100 mg BID [facility] Administration Ranolazine 500 mg 11/08/19 09:00 11/11/19 10:00 Ranexa PO 500 mg BID [facility] Administration Sevelamer Carbonate 800 mg 11/08/19 08:00 11/11/19 10:02 Renvela PO 800 mg TID-[facility] Administration Sodium Chloride 10 ml 11/07/19 21:27 11/08/19 21:36 Flush - Normal Saline IVF 10 ml Q12HR PRN Administration Saline Flush - Exam General Appearance: NAD, awake alert ENT: moist mucosa Heart: RRR, no murmur, no gallops, no rubs Respiratory: CTAB, no wheezes, no rales, no ronchi Gastrointestinal: soft, non-tender, non-distended, normal bowel sounds Extremities: no edema Psychiatric: normal affect, normal behavior, A&O x 3 Hosp A/P (1) Acute on chronic combined systolic (congestive) and diastolic (congestive) heart failure Code(s): I50.43 - ACUTE ON CHRONIC COMBINED SYSTOLIC AND DIASTOLIC HRT FAIL Status: Acute (2) Acute worsening of stage 4 chronic kidney disease Code(s): N18.4 - CHRONIC KIDNEY DISEASE, STAGE 4 (SEVERE) Status: Acute (3) CAD (coronary artery disease) Code(s): I25.10 - ATHSCL HEART DISEASE OF [place] CORONARY ARTERY W/O ANG PCTRS Status: Chronic (4) Diabetes mellitus type II, uncontrolled Code(s): E11.65 - TYPE 2 DIABETES MELLITUS WITH HYPERGLYCEMIA Status: Chronic (5) HTN (hypertension) Code(s): I10 - ESSENTIAL (PRIMARY) HYPERTENSION Status: Chronic Qualifiers: Hypertension type: essential hypertension Qualified Code(s): I10 - Essential (primary) hypertension (6) Anemia of chronic disease Code(s): D63.8 - ANEMIA IN OTHER CHRONIC DISEASES CLASSIFIED ELSEWHERE Status : Acute - Plan Creatinine worsening, Dr. Faria following Diuresing well Dr. Schroeder following for Cards
[2019-11-11] MEDS: Guaifenesin DM 100-10/5 ML UDCUP PO PRN ×2 (15:15→23:58)
--- NOTE | 2019-11-11 18:33 | PRG ---
DATE OF SERVICE: 11/11/2019 SUBJECTIVE: Noted with the following vital signs. OBJECTIVE: VITAL SIGNS: Afebrile, temperature 97.7, pulse 76, respiratory rate of 16, and blood pressure of 161/77. HEENT: Unremarkable. CARDIOVASCULAR SYSTEM: First and second heart sounds were heard. RESPIRATORY SYSTEM: Clear to auscultation. DIGESTIVE SYSTEM: Revealed a benign abdomen. EXTREMITIES: Showed improving peripheral edema. SKIN: No new gross rash. LYMPHATICS: No peripheral lymphadenopathy. LABORATORY INVESTIGATION: Showed a creatinine of 3.8 up from 3.6 yesterday, BUN of 48, bicarb of 20. IMPRESSION: 1. Acute on chronic kidney disease. 2. Advanced chronic kidney disease, stage 4/5. 3. Cardiomyopathy with reduced ejection fraction. 4. Morbid obesity. PLAN: 1. Continue current management. 2. Adjust antihypertensive to optimize hemodynamics. 3. We will begin to consider deescalation of diuretics within the next 24 to 48 hours. Job ID: [id number]
[2019-11-11] MEDS: traMADol HCl 50 MG TAB PO PRN (21:38)
[2019-11-11] MEDS: Atorvastatin Calcium 40 MG TAB PO SCH (21:39)
[2019-11-11] MEDS: Insulin Glargine 80 UNITS in Pre-Filled Syringe 1 EACH SC SCH (22:04)
[2019-11-11] MEDS ORDERED: Benzonatate 100 MG CAP PO PRN (23:53)
[2019-11-12] MEDS: Furosemide 40 MG/4 ML VIAL SLOW IVP SCH (05:28)
[2019-11-12 09:42] LABS: Anion Gap 15 mmol/L (10-20); BUN (Urea Nitrogen) 54 mg/dL (7.0-18.7); Calc. Creatinine Clearance 34 mL/min (70-130); Calcium 9.2 mg/dL (7.8-10.44); Carbon Dioxide 25 mmol/L (22-29); Chloride 105 mmol/L (98-107); Estimated GFR-MDRD 11; Glucose 104 mg/dL (70-105); Potassium 4.1 mmol/L (3.5-5.1); Sodium 141 mmol/L (136-145)
[2019-11-12] MEDS: Famotidine/PF 20 mg/2ml Vial SLOW IVP SCH (09:42)
[2019-11-12] MEDS: Isosorbide Mononitrate (ER) 30 MG TAB PO SCH (09:43)
[2019-11-12] MEDS: Sevelamer Carbonate 800 MG TAB PO SCH ×3 (09:43→18:51)
[2019-11-12] MEDS: Metoprolol Tartrate 100 MG TAB PO SCH ×2 (09:44→21:50)
[2019-11-12] MEDS: Gabapentin 300 MG CAP PO SCH (09:44)
[2019-11-12] MEDS: Clopidogrel Bisulfate 75 MG TAB PO SCH (09:44)
[2019-11-12] MEDS: Amlodipine 10 MG TAB PO SCH (09:44)
[2019-11-12] MEDS: Aspirin 325 mg Enteric Coated Tablet PO SCH (09:44)
[2019-11-12] MEDS: hydrALAZINE 25 MG TAB PO SCH ×3 (09:45→21:01)
--- NOTE | 2019-11-12 09:51 | PDOC.HOSPP ---
- Subjective Encounter Date: 11/12/19 Encounter Time: 11:50 Subjective: Patient had some sharp chest pain yesterday, followed by chest pressure for a few minutes. Resolved quickly. No recurrence since. No other symptoms. Still just feeling "bad". - Objective Vital Signs & Weight: Vital Signs (12 hours) Temp Pulse Resp BP Pulse Ox 11/12/19 07:15 95 11/12/19 07:14 97.6 F 73 17 152/78 H 97 11/12/19 03:29 97.9 F 72 18 139/69 96 Weight Admit Weight 306 lb 4.8 oz Weight 295 lb I&O: 11/11/19 11/12/19 11/13/19 06:59 06:59 06:59 Intake Total 1440 650 Output Total 200 Balance 1440 450 Result Diagrams: 11/10/19 07:38 11/12/19 09:05 Additional Labs: Accuchecks 11/12/19 11/11/19 11/11/19 05:49 20:51 17:19 POC Glucose 120 H 178 H 241 H 11/11/19 11:31 POC Glucose 176 H Hospitalist ROS - Review of Systems Constitutional: denies: fever, chills Respiratory: denies: cough, shortness of breath Cardiovascular: reports: chest pain. denies: palpitations, edema Gastrointestinal: denies: nausea, vomiting, abdominal pain - Medication Medications: Active Medications Generic Name Dose Route Start Last Admin Trade Name Freq PRN Reason Stop Dose Admin Acetaminophen 650 mg 11/07/19 21:27 11/08/19 22:06 Tylenol PO 650 mg Q4H PRN Administration Headache/Fever/Mild Pain (1-3) Aspirin 325 mg 11/08/19 09:00 11/11/19 10:05 Ecotrin PO 325 mg DAILY [facility] Administration Atorvastatin Calcium 40 mg 11/08/19 21:00 11/11/19 21:39 Lipitor PO 40 mg HS [facility] Administration Clopidogrel Bisulfate 75 mg 11/08/19 09:00 11/11/19 10:00 Plavix PO 75 mg DAILY [facility] Administration Famotidine 20 mg 11/08/19 09:00 11/11/19 10:06 Pepcid SLOW IVP 20 mg DAILY [facility] Administration Furosemide 40 mg 11/10/19 14:00 11/12/19 05:28 Lasix SLOW IVP 40 mg 0600,1400 [facility] Administration Gabapentin 300 mg 11/08/19 09:00 11/11/19 10:05 Neurontin PO 300 mg DAILY [facility] Administration Guaifenesin/Dextromethorphan 15 ml 11/08/19 06:48 11/11/19 23:58 Robitussin Dm PO 15 ml Q4H PRN Administration Cough Hydralazine HCl 50 mg 11/09/19 15:00 11/11/19 21:39 Apresoline PO 50 mg TID [facility] Administration Promethazine HCl 12.5 mg/ 50.5 mls @ 202 mls/hr 11/07/19 22:48 11/11/19 11:54 Sodium Chloride IVPB 50.5 mls Q6H PRN Administration Nausea/Vomiting Insulin Glargine 80 units/ 0.8 mls @ 0 mls/hr 11/08/19 21:00 11/11/19 22:04 Miscellaneous Medication SC 0.8 mls HS [facility] Administration Insulin Human Lispro 0 units 11/10/19 10:10 11/11/19 18:30 Humalog SC 9 unit .AGGRESSIVE SLIDING PRN Administration Aggressive Correctional Scale Isosorbide Mononitrate 30 mg 11/11/19 09:00 11/11/19 10:00 Imdur Er PO 30 mg DAILY [facility] Administration Metoprolol Tartrate 100 mg 11/08/19 09:00 11/11/19 21:39 Lopressor PO 100 mg BID [facility] Administration Ranolazine 500 mg 11/08/19 09:00 11/11/19 21:39 Ranexa PO 500 mg BID [facility] Administration Sevelamer Carbonate 800 mg 11/08/19 08:00 11/11/19 18:30 Renvela PO 800 mg TID-WM [facility] Administration Sodium Chloride 10 ml 11/07/19 21:27 11/08/19 21:36 Flush - Normal Saline IVF 10 ml Q12HR PRN Administration Saline Flush Tramadol HCl 50 mg 11/11/19 10:29 11/11/19 21:38 Ultram PO 50 mg Q12H PRN Administration Moderate Pain (4-6) - Exam General Appearance: NAD, awake alert ENT: moist mucosa Heart: RRR, no murmur, no gallops, no rubs Respiratory: CTAB, no wheezes, no rales, no ronchi Gastrointestinal: soft, non-tender, non-distended, normal bowel sounds Extremities: no edema Psychiatric: normal affect, normal behavior, A&O x 3 Hosp A/P (1) Acute on chronic combined systolic (congestive) and diastolic (congestive) heart failure Code(s): I50.43 - ACUTE ON CHRONIC COMBINED SYSTOLIC AND DIASTOLIC HRT FAIL Status: Acute (2) Acute worsening of stage 4 chronic kidney disease Code(s): N18.4 - CHRONIC KIDNEY DISEASE, STAGE 4 (SEVERE) Status: Acute (3) CAD (coronary artery disease) Code(s): I25.10 - ATHSCL HEART DISEASE OF [place] CORONARY ARTERY W/O ANG PCTRS Status: Chronic (4) Diabetes mellitus type II, uncontrolled Code(s): E11.65 - TYPE 2 DIABETES MELLITUS WITH HYPERGLYCEMIA Status: Chronic (5) HTN (hypertension) Code(s): I10 - ESSENTIAL (PRIMARY) HYPERTENSION Status: Chronic Qualifiers: Hypertension type: essential hypertension Qualified Code(s): I10 - Essential (primary) hypertension (6) Anemia of chronic disease Code(s): D63.8 - ANEMIA IN OTHER CHRONIC DISEASES CLASSIFIED ELSEWHERE Status : Acute - Plan Creatinine worsening, Dr. Faria following, will stop Lasix Diuresed well, stopping Lasix, strict Is and Os Dr. Schroeder following for Cards
--- NOTE | 2019-11-12 10:12 | EKG ---
Test Reason : Blood Pressure : / mmHG Vent. Rate : 076 BPM Atrial Rate : 076 BPM P-R Int : 210 ms QRS Dur : 164 ms QT Int : 486 ms P-R-T Axes : 038 232 052 degrees QTc Int : 546 ms Sinus rhythm with 1st degree A-V block Right bundle branch block Cannot exclude Inferior infarct , age undetermined Abnormal ECG Confirmed by ALDEN ESTEVES ([id number]) on 11/12/2019 10:12:46 AM Referred By: JOSEFINA Confirmed By:ALDEN ESTEVES
[2019-11-12] MEDS: HumaLOG 300 UNITS/3 ML VIAL SC PRN (12:50)
--- NOTE | 2019-11-12 13:32 | PDOC.CPN ---
- Subjective Date: 11/12/19 Time: 08:30 Interval history: The pt seen and examined. No overnight events. No cardiac complaints. - Objective Allergies/Adverse Reactions: Allergies Allergy/AdvReac Type Severity Reaction Status Date / Time codeine AdvReac Verified 11/07/19 23:00 Visit Medications: Current Medications Acetaminophen (Tylenol) 650 mg PO Q4H PRN PRN Reason: Headache/Fever/Mild Pain (1-3) Last Admin: 11/08/19 22:06 Dose: 650 mg Acetaminophen (Tylenol) 650 mg [place] Q4H PRN PRN Reason: Headache/Fever/Mild Pain (1-3) Amlodipine Besylate (Norvasc) 10 mg PO DAILY [facility] Last Admin: 11/12/19 09:44 Dose: 10 mg Aspirin (Ecotrin) 325 mg PO DAILY [facility] Last Admin: 11/12/19 09:44 Dose: 325 mg Atorvastatin Calcium (Lipitor) 40 mg PO HS [facility] Last Admin: 11/11/19 21:39 Dose: 40 mg Benzonatate (Tessalon) 100 mg PO TIDPRN PRN PRN Reason: Cough Clopidogrel Bisulfate (Plavix) 75 mg PO DAILY [facility] Last Admin: 11/12/19 09:44 Dose: 75 mg Dextrose/Water (Dextrose 50%) 25 gm SLOW IVP PRN PRN PRN Reason: Hypoglycemia Famotidine (Pepcid) 20 mg SLOW IVP DAILY [facility] Last Admin: 11/12/19 09:42 Dose: 20 mg Gabapentin (Neurontin) 300 mg PO DAILY [facility] Last Admin: 11/12/19 09:44 Dose: 300 mg Glucagon (Glucagon) 1 mg IM PRN PRN PRN Reason: Hypoglycemia Guaifenesin/Dextromethorphan (Robitussin Dm) 15 ml PO Q4H PRN PRN Reason: Cough Last Admin: 11/11/19 23:58 Dose: 15 ml Hydralazine HCl (Apresoline) 50 mg PO TID [facility] Last Admin: 11/12/19 09:45 Dose: 50 mg Promethazine HCl 12.5 mg/ (Sodium Chloride) 50.5 mls @ 202 mls/hr IVPB Q6H PRN PRN Reason: Nausea/Vomiting Last Admin: 11/11/19 11:54 Dose: 50.5 mls Insulin Glargine 80 units/ (Miscellaneous Medication) 0.8 mls @ 0 mls/hr SC HS [facility] Last Admin: 11/11/19 22:04 Dose: 0.8 mls Dextrose/Water (D5w) 1,000 mls @ 0 mls/hr IV .Q0M PRN PRN Reason: Hypoglycemia Insulin Human Lispro (Humalog) 0 units SC .AGGRESSIVE SLIDING PRN PRN Reason: Aggressive Correctional Scale Last Admin: 11/12/19 12:50 Dose: 3 unit Isosorbide Mononitrate (Imdur Er) 30 mg PO DAILY [facility] Last Admin: 11/12/19 09:43 Dose: 30 mg Metoprolol Tartrate (Lopressor) 100 mg PO BID [facility] Last Admin: 11/12/19 09:44 Dose: 100 mg Liraglutide [Victoza (2-Ricardo] 0.6 Mg) 0 each SC DAILY [facility] Ranolazine (Ranexa) 500 mg PO BID [facility] Last Admin: 11/12/19 09:43 Dose: 500 mg Sevelamer Carbonate (Renvela) 800 mg PO TID-[facility] Last Admin: 11/12/19 12:49 Dose: 800 mg Sodium Chloride (Flush - Normal Saline) 10 ml IVF Q12HR PRN PRN Reason: Saline Flush Last Admin: 11/12/19 09:47 Dose: 10 ml Sodium Chloride (Flush - Normal Saline) 10 ml IVF PRN PRN PRN Reason: Saline Flush Tramadol HCl (Ultram) 50 mg PO Q12H PRN PRN Reason: Moderate Pain (4-6) Last Admin: 11/11/19 21:38 Dose: 50 mg Vital Signs & Weight: Vital Signs Temp Pulse Resp BP Pulse Ox 11/12/19 11:30 98.0 F 72 20 139/73 95 11/12/19 09:45 73 11/12/19 09:44 73 11/12/19 07:15 95 11/12/19 07:14 97.6 F 73 17 152/78 H 97 11/12/19 03:29 97.9 F 72 18 139/69 96 Admit Weight 306 lb 4.8 oz Weight 295 lb - Physical Exam General: alert & oriented x3 HEENT: mucus membranes moist Neck: supple neck Cardiac: regular rate and rhythm, S1/S2 Lungs: clear to auscultation Neuro: cranial nerve 2-12 intact - Labs Result Diagrams: 11/10/19 07:38 11/12/19 09:05 Troponin/CKMB CK-MB (CK-2) 3.0 ng/mL (0-6.6) 11/12/19 12:36 Troponin I 0.034 ng/mL (< 0.028) H 11/12/19 12:36 - Telemetry Sinus rhythms and dysrhythmias: sinus rhythm - Assessment/Plan Assessment/Plan: 1. CAD - no CP at this moment; Cr level 4.24 today from 3.8 yesterday; on Metoprolol, ASA, Plavix, and Lipitor; not on GADIEL/ARB due to hx of CKD 2. Acute on Chronic combined HF with EF 50-55% (40-45% in 09/2019) and grade I dd - on BBlocker; Lasix was stopped today for elevated Cr level; not on GADIEL/ARB due to hx of CKD 3. KAY on CKD - managed by test inspection engineer (possible HD in future?) 4. HTN - stable 5. insulin-dependent DM 6. Anemia - stable 7. Sleep apnea 8. nausea - possible Gastroparesis? 9. Depression MAR reviewed * Echo today showed EF 50-55% (40-45% in 09/2019), grade I dd, hypokinetic lateral wall, trace MR and IL, mild TR Pt. seen and eval. by me. I agree with the A/p by the TELEPHONE SERVICE ADVISER. Chest clear. RRR. No edema. Continue medical management.
[2019-11-12] MEDS: Promethazine HCl 12.5 MG in Sodium Chloride 0.9% 50 ML IVPB PRN (15:34)
--- NOTE | 2019-11-12 17:06 | EKG ---
Test Reason : Blood Pressure : / mmHG Vent. Rate : 073 BPM Atrial Rate : 073 BPM P-R Int : 200 ms QRS Dur : 176 ms QT Int : 472 ms P-R-T Axes : 036 260 035 degrees QTc Int : 519 ms Normal sinus rhythm Right bundle branch block Abnormal ECG When compared with ECG of 10-NOV-2019 07:53, No significant change was found Confirmed by DR. Savanah CH ([id number]) on 11/12/2019 5:05:36 PM Referred By: BECKY Confirmed By:DR. Savanah CH
[2019-11-12] MEDS: Atorvastatin Calcium 40 MG TAB PO SCH (21:01)
[2019-11-12] MEDS: traMADol HCl 50 MG TAB PO PRN (21:02)
[2019-11-12] MEDS: Insulin Glargine 80 UNITS in Pre-Filled Syringe 1 EACH SC SCH (21:03)
[2019-11-12] MEDS: Guaifenesin DM 100-10/5 ML UDCUP PO PRN (23:09)
[2019-11-13 04:50] LABS: Anion Gap 13 mmol/L (10-20); BUN (Urea Nitrogen) 56 mg/dL (7.0-18.7); Calc. Creatinine Clearance 32 mL/min (70-130); Calcium 8.8 mg/dL (7.8-10.44); Carbon Dioxide 26 mmol/L (22-29); Chloride 105 mmol/L (98-107); Estimated GFR-MDRD 10; Glucose 209 mg/dL (70-105); Potassium 4.1 mmol/L (3.5-5.1); Sodium 140 mmol/L (136-145)
[2019-11-13] MEDS: Promethazine HCl 12.5 MG in Sodium Chloride 0.9% 50 ML IVPB PRN (07:53)
--- NOTE | 2019-11-13 08:15 | PDOC.CPN ---
- Subjective Date: 11/13/19 Time: 08:15 Interval history: The pt seen and examined. No overnight events. No cardiac complaints. - Objective Allergies/Adverse Reactions: Allergies Allergy/AdvReac Type Severity Reaction Status Date / Time codeine AdvReac Verified 11/07/19 23:00 Visit Medications: Current Medications Acetaminophen (Tylenol) 650 mg PO Q4H PRN PRN Reason: Headache/Fever/Mild Pain (1-3) Last Admin: 11/08/19 22:06 Dose: 650 mg Acetaminophen (Tylenol) 650 mg [place] Q4H PRN PRN Reason: Headache/Fever/Mild Pain (1-3) Amlodipine Besylate (Norvasc) 10 mg PO DAILY [facility] Last Admin: 11/12/19 09:44 Dose: 10 mg Aspirin (Ecotrin) 325 mg PO DAILY [facility] Last Admin: 11/12/19 09:44 Dose: 325 mg Atorvastatin Calcium (Lipitor) 40 mg PO HS [facility] Last Admin: 11/12/19 21:01 Dose: 40 mg Benzonatate (Tessalon) 100 mg PO TIDPRN PRN PRN Reason: Cough Clopidogrel Bisulfate (Plavix) 75 mg PO DAILY [facility] Last Admin: 11/12/19 09:44 Dose: 75 mg Dextrose/Water (Dextrose 50%) 25 gm SLOW IVP PRN PRN PRN Reason: Hypoglycemia Famotidine (Pepcid) 20 mg SLOW IVP DAILY [facility] Last Admin: 11/12/19 09:42 Dose: 20 mg Gabapentin (Neurontin) 300 mg PO DAILY [facility] Last Admin: 11/12/19 09:44 Dose: 300 mg Glucagon (Glucagon) 1 mg IM PRN PRN PRN Reason: Hypoglycemia Guaifenesin/Dextromethorphan (Robitussin Dm) 15 ml PO Q4H PRN PRN Reason: Cough Last Admin: 11/12/19 23:09 Dose: 15 ml Hydralazine HCl (Apresoline) 50 mg PO TID [facility] Last Admin: 11/12/19 21:01 Dose: 50 mg Promethazine HCl 12.5 mg/ (Sodium Chloride) 50.5 mls @ 202 mls/hr IVPB Q6H PRN PRN Reason: Nausea/Vomiting Last Admin: 11/13/19 07:53 Dose: 50.5 mls Insulin Glargine 80 units/ (Miscellaneous Medication) 0.8 mls @ 0 mls/hr SC HS [facility] Last Admin: 11/12/19 21:03 Dose: 0.8 mls Dextrose/Water (D5w) 1,000 mls @ 0 mls/hr IV .Q0M PRN PRN Reason: Hypoglycemia Insulin Human Lispro (Humalog) 0 units SC .AGGRESSIVE SLIDING PRN PRN Reason: Aggressive Correctional Scale Last Admin: 11/12/19 12:50 Dose: 3 unit Isosorbide Mononitrate (Imdur Er) 30 mg PO DAILY [facility] Last Admin: 11/12/19 09:43 Dose: 30 mg Metoprolol Tartrate (Lopressor) 100 mg PO BID [facility] Last Admin: 11/12/19 21:50 Dose: 100 mg Liraglutide [Victoza (2-Ricardo] 0.6 Mg) 0 each SC DAILY [facility] Ranolazine (Ranexa) 500 mg PO BID [facility] Last Admin: 11/12/19 21:01 Dose: 500 mg Sevelamer Carbonate (Renvela) 800 mg PO TID[facility] Last Admin: 11/12/19 18:51 Dose: 800 mg Sodium Chloride (Flush - Normal Saline) 10 ml IVF Q12HR PRN PRN Reason: Saline Flush Last Admin: 11/12/19 09:47 Dose: 10 ml Sodium Chloride (Flush - Normal Saline) 10 ml IVF PRN PRN PRN Reason: Saline Flush Tramadol HCl (Ultram) 50 mg PO Q12H PRN PRN Reason: Moderate Pain (4-6) Last Admin: 11/12/19 21:02 Dose: 50 mg Vital Signs & Weight: Vital Signs Temp Pulse Resp BP BP Pulse Ox 11/13/19 07:56 97.9 F 76 20 161/80 H 95 11/13/19 03:24 97.9 F 81 20 130/65 97 11/13/19 00:00 72 20 141/72 H 11/12/19 21:01 70 128/64 Admit Weight 306 lb 4.8 oz Weight 289 lb 14.4 oz - Physical Exam General: alert & oriented x3 HEENT: mucus membranes moist Neck: supple neck Cardiac: regular rate and rhythm, S1/S2 Lungs: clear to auscultation, decreased breath sounds - Labs Result Diagrams: 11/10/19 07:38 11/13/19 04:11 Troponin/CKMB CK-MB (CK-2) 3.0 ng/mL (0-6.6) 11/12/19 12:36 Troponin I 0.034 ng/mL (< 0.028) H 11/12/19 12:36 - Telemetry Sinus rhythms and dysrhythmias: sinus rhythm - Assessment/Plan Assessment/Plan: 1. CAD - no CP at this moment; Cr level 4.5 today from 4.24 yesterday; on Metoprolol, ASA, Plavix, and Lipitor; not on GADIEL/ARB due to hx of CKD 2. Acute on Chronic combined HF with EF 50-55% (40-45% in 09/2019) and grade I dd - on BBlocker; Lasix was stopped on 11/12/2019 for worsened of renal function ; not on GADIEL/ARB due to hx of CKD 3. KAY on CKD - managed by service administrator (possible HD in future?) 4. HTN - stable 5. Insulin-dependent DM 6. Anemia - stable 7. Sleep apnea 8. nausea - possible Gastroparesis? 9. Depression MAR reviewed * Echo today showed EF 50-55% (40-45% in 09/2019), grade I dd, hypokinetic lateral wall, trace MR and [place], mild TR Pt. seen and eval. by me. I agree withthe A/P by the DIE CAST TECHNICIAN. The renal function appears to be deteriorating Chest clear. RRR. gjm
--- NOTE | 2019-11-13 08:39 | PDOC.HOSPP ---
- Subjective Encounter Date: 11/13/19 Encounter Time: 13:40 Subjective: Feeling fatigued and bad but no specific symptoms. Significantly less UOP since stopping Lasix yesterday. - Objective Vital Signs & Weight: Vital Signs (12 hours) Temp Pulse Resp BP BP Pulse Ox 11/13/19 07:56 97.9 F 76 20 161/80 H 95 11/13/19 03:24 97.9 F 81 20 130/65 97 11/13/19 00:00 72 20 141/72 H 11/12/19 21:01 70 128/64 Weight Admit Weight 306 lb 4.8 oz Weight 289 lb 14.4 oz I&O: 11/12/19 11/13/19 11/14/19 06:59 06:59 06:59 Intake Total 650 1320 Output Total 200 1800 Balance 450 -480 Result Diagrams: 11/10/19 07:38 11/13/19 04:11 Additional Labs: Accuchecks 11/13/19 11/12/19 11/12/19 05:46 20:43 17:25 POC Glucose 181 H 242 H 146 H 11/12/19 10:24 POC Glucose 169 H Hospitalist ROS - Review of Systems Constitutional: denies: fever, chills Respiratory: denies: cough, shortness of breath Cardiovascular: denies: chest pain, palpitations, orthopnea, edema Gastrointestinal: denies: nausea, vomiting, abdominal pain Genitourinary: denies: dysuria, hematuria - Medication Medications: Active Medications Generic Name Dose Route Start Last Admin Trade Name Freq PRN Reason Stop Dose Admin Acetaminophen 650 mg 11/07/19 21:27 11/08/19 22:06 Tylenol PO 650 mg Q4H PRN Administration Headache/Fever/Mild Pain (1-3) Amlodipine Besylate 10 mg 11/12/19 09:00 11/12/19 09:44 Norvasc PO 10 mg DAILY [facility] Administration Aspirin 325 mg 11/08/19 09:00 11/12/19 09:44 Ecotrin PO 325 mg DAILY [facility] Administration Atorvastatin Calcium 40 mg 11/08/19 21:00 11/12/19 21:01 Lipitor PO 40 mg HS [facility] Administration Clopidogrel Bisulfate 75 mg 11/08/19 09:00 11/12/19 09:44 Plavix PO 75 mg DAILY [facility] Administration Famotidine 20 mg 11/08/19 09:00 11/12/19 09:42 Pepcid SLOW IVP 20 mg DAILY [facility] Administration Gabapentin 300 mg 11/08/19 09:00 11/12/19 09:44 Neurontin PO 300 mg DAILY [facility] Administration Guaifenesin/Dextromethorphan 15 ml 11/08/19 06:48 11/12/19 23:09 Robitussin Dm PO 15 ml Q4H PRN Administration Cough Hydralazine HCl 50 mg 11/09/19 15:00 11/12/19 21:01 Apresoline PO 50 mg TID [facility] Administration Promethazine HCl 12.5 mg/ 50.5 mls @ 202 mls/hr 11/07/19 22:48 11/13/19 07:53 Sodium Chloride IVPB 50.5 mls Q6H PRN Administration Nausea/Vomiting Insulin Glargine 80 units/ 0.8 mls @ 0 mls/hr 11/08/19 21:00 11/12/19 21:03 Miscellaneous Medication SC 0.8 mls HS [facility] Administration Insulin Human Lispro 0 units 11/10/19 10:10 11/12/19 12:50 Humalog SC 3 unit .AGGRESSIVE SLIDING PRN Administration Aggressive Correctional Scale Isosorbide Mononitrate 30 mg 11/11/19 09:00 11/12/19 09:43 Imdur Er PO 30 mg DAILY [facility] Administration Metoprolol Tartrate 100 mg 11/08/19 09:00 11/12/19 21:50 Lopressor PO 100 mg BID [facility] Administration Ranolazine 500 mg 11/08/19 09:00 11/12/19 21:01 Ranexa PO 500 mg BID [facility] Administration Sevelamer Carbonate 800 mg 11/08/19 08:00 11/12/19 18:51 Renvela PO 800 mg TID-[facility] Administration Sodium Chloride 10 ml 11/07/19 21:27 11/12/19 09:47 Flush - Normal Saline IVF 10 ml Q12HR PRN Administration Saline Flush Tramadol HCl 50 mg 11/11/19 10:29 11/12/19 21:02 Ultram PO 50 mg Q12H PRN Administration Moderate Pain (4-6) - Exam General Appearance: NAD, awake alert ENT: moist mucosa Heart: RRR, no murmur, no gallops, no rubs Respiratory: CTAB, no wheezes, no rales, no ronchi Gastrointestinal: soft, non-tender, non-distended, normal bowel sounds Extremities: no edema Extremities - other findings: 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 Psychiatric: normal affect, normal behavior, A&O x 3 Hosp A/P (1) Acute on chronic combined systolic (congestive) and diastolic (congestive) heart failure Code(s): I50.43 - ACUTE ON CHRONIC COMBINED SYSTOLIC AND DIASTOLIC HRT FAIL Status: Acute (2) Acute worsening of stage 4 chronic kidney disease Code(s): N18.4 - CHRONIC KIDNEY DISEASE, STAGE 4 (SEVERE) Status: Acute (3) CAD (coronary artery disease) Code(s): I25.10 - ATHSCL HEART DISEASE OF [place] CORONARY ARTERY W/O ANG PCTRS Status: Chronic (4) Diabetes mellitus type II, uncontrolled Code(s): E11.65 - TYPE 2 DIABETES MELLITUS WITH HYPERGLYCEMIA Status: Chronic (5) HTN (hypertension) Code(s): I10 - ESSENTIAL (PRIMARY) HYPERTENSION Status: Chronic Qualifiers: Hypertension type: essential hypertension Qualified Code(s): I10 - Essential (primary) hypertension (6) Anemia of chronic disease Code(s): D63.8 - ANEMIA IN OTHER CHRONIC DISEASES CLASSIFIED ELSEWHERE Status : Acute - Plan Creatinine worsening, Dr. Faria following, Lasix on hold Diuresed well, stopped Lasix, strict Is and Os Dr. Schroeder following for Cards GI f/u outpatient for chronic nausea
[2019-11-13] MEDS: Aspirin 325 mg Enteric Coated Tablet PO SCH (09:55)
[2019-11-13] MEDS: Sevelamer Carbonate 800 MG TAB PO SCH ×3 (09:55→16:42)
[2019-11-13] MEDS: Isosorbide Mononitrate (ER) 30 MG TAB PO SCH (09:55)
[2019-11-13] MEDS: Metoprolol Tartrate 100 MG TAB PO SCH ×2 (09:56→21:04)
[2019-11-13] MEDS: Clopidogrel Bisulfate 75 MG TAB PO SCH (09:56)
[2019-11-13] MEDS: Gabapentin 300 MG CAP PO SCH (09:56)
[2019-11-13] MEDS: hydrALAZINE 25 MG TAB PO SCH ×3 (09:56→21:03)
[2019-11-13] MEDS: Amlodipine 10 MG TAB PO SCH (09:56)
[2019-11-13] MEDS: Famotidine/PF 20 mg/2ml Vial SLOW IVP SCH (09:56)
[2019-11-13] MEDS: traMADol HCl 50 MG TAB PO PRN ×2 (10:02→21:05)
[2019-11-13] MEDS: Promethazine 25 MG TAB PO PRN ×2 (16:41→22:59)
[2019-11-13] MEDS: HumaLOG 300 UNITS/3 ML VIAL SC PRN (18:13)
--- NOTE | 2019-11-13 18:54 | PRG ---
DATE OF SERVICE: 11/13/2019 SUBJECTIVE: The patient is seen and examined, noted with the following vital signs. OBJECTIVE: VITAL SIGNS: Afebrile, temperature 97.5, pulse 71, respiratory rate of 19, O2 saturation of 96%, and blood pressure 132/71. HEENT: Unremarkable. CARDIOVASCULAR SYSTEM: First and second heart sounds were heard. RESPIRATORY SYSTEM: Clear to auscultation. DIGESTIVE SYSTEM: Revealed a benign abdomen. EXTREMITIES: Showed improved peripheral edema. LABORATORY INVESTIGATION: Showed hemoglobin 11.1. Chemistry showed a creatinine of 4.52 and BUN of 56. IMPRESSION: 1. Advanced chronic kidney disease, stage 5. 2. Morbid obesity. 3. Acute on chronic combined systolic and diastolic heart failure. 4. Diabetes mellitus. PLAN: 1. Diuretics on hold for now because of worsening renal function. However, if the patient begins to show signs of fluid overload, we will re-initiate diuretics and if the patient cannot tolerate diuretics, will become an indication for renal replacement therapy. 2. If the patient has to undergo cardiac workup with contrast, we will recommend to proceed with cardiac workup to avoid degenerating cardiac function, which would invariably affect the renal function. However, the patient to undergo such studies in the context of contrast prophylaxis to reduce defect of contrast on the kidney. 3. If the patient's renal function deteriorates further, the patient clearly started becoming symptomatic, we will initiate renal replacement therapy. 4. The patient's local health benefits specialist I do believe it is probably in the discussion with the patient relates to renal replacement therapy, which involves plan for access. 5. Renally dose all medications and avoid potentially nephrotoxic agents. 6. Further management will be dependent on the clinical course. Job ID: [id number]
[2019-11-13] MEDS: Insulin Glargine 80 UNITS in Pre-Filled Syringe 1 EACH SC SCH (21:04)
[2019-11-13] MEDS: Atorvastatin Calcium 40 MG TAB PO SCH (21:04)
[2019-11-14 05:05] LABS: Anion Gap 16 mmol/L (10-20); BUN (Urea Nitrogen) 62 mg/dL (7.0-18.7); Calc. Creatinine Clearance 31 mL/min (70-130); Calcium 9.1 mg/dL (7.8-10.44); Carbon Dioxide 23 mmol/L (22-29); Chloride 105 mmol/L (98-107); Estimated GFR-MDRD 10; Glucose 101 mg/dL (70-105); Potassium 4.1 mmol/L (3.5-5.1); Sodium 140 mmol/L (136-145)
--- NOTE | 2019-11-14 08:33 | PDOC.HOSPP ---
- Subjective Encounter Date: 11/14/19 Encounter Time: 14:45 Subjective: Patient with decrease UOP, some increased weight since stopped lasix. Feeling about the same. Is constipated and asking for Miralax. Understands that if we can't keep her diuresed with worsened renal function she may need dialysis. - Objective Vital Signs & Weight: Vital Signs (12 hours) Temp Pulse Resp BP BP Pulse Ox 11/14/19 08:00 98.1 F 73 18 155/78 H 97 11/14/19 04:00 97.5 F L 77 20 141/71 H 96 11/13/19 22:55 74 20 144/74 H 11/13/19 21:03 71 132/65 Weight Admit Weight 306 lb 4.8 oz Weight 293 lb 4.8 oz I&O: 11/13/19 11/14/19 11/15/19 06:59 06:59 06:59 Intake Total 1320 540 Output Total 1800 600 Balance -480 -60 Result Diagrams: 11/10/19 07:38 11/14/19 03:37 Additional Labs: Accuchecks 11/14/19 11/13/19 11/13/19 06:30 20:54 16:58 POC Glucose 84 230 H 188 H 11/13/19 10:52 POC Glucose 113 H Hospitalist ROS - Review of Systems Constitutional: denies: fever, chills Respiratory: reports: SOB with excertion. denies: cough, shortness of breath Cardiovascular: denies: chest pain, palpitations, orthopnea Gastrointestinal: reports: constipation. denies: nausea, vomiting, abdominal pain, diarrhea Genitourinary: denies: dysuria, hematuria - Medication Medications: Active Medications Generic Name Dose Route Start Last Admin Trade Name Freq PRN Reason Stop Dose Admin Acetaminophen 650 mg 11/07/19 21:27 11/08/19 22:06 Tylenol PO 650 mg Q4H PRN Administration Headache/Fever/Mild Pain (1-3) Amlodipine Besylate 10 mg 11/12/19 09:00 11/13/19 09:56 Norvasc PO 10 mg DAILY [facility] Administration Aspirin 325 mg 11/08/19 09:00 11/13/19 09:55 Ecotrin PO 325 mg DAILY [facility] Administration Atorvastatin Calcium 40 mg 11/08/19 21:00 02/26/20 21:04 Lipitor PO 40 mg HS [facility] Administration Clopidogrel Bisulfate 75 mg 11/08/19 09:00 11/13/19 09:56 Plavix PO 75 mg DAILY [facility] Administration Famotidine 20 mg 11/08/19 09:00 11/13/19 09:56 Pepcid SLOW IVP 20 mg DAILY [facility] Administration Gabapentin 300 mg 11/08/19 09:00 11/13/19 09:56 Neurontin PO 300 mg DAILY [facility] Administration Guaifenesin/Dextromethorphan 15 ml 11/08/19 06:48 11/12/19 23:09 Robitussin Dm PO 15 ml Q4H PRN Administration Cough Hydralazine HCl 50 mg 11/09/19 15:00 11/13/19 21:03 Apresoline PO 50 mg TID [facility] Administration Insulin Glargine 80 units/ 0.8 mls @ 0 mls/hr 11/08/19 21:00 11/13/19 21:04 Miscellaneous Medication SC 0.8 mls HS [facility] Administration Insulin Human Lispro 0 units 11/10/19 10:10 11/13/19 18:13 Humalog SC 3 unit .AGGRESSIVE SLIDING PRN Administration Aggressive Correctional Scale Isosorbide Mononitrate 30 mg 11/11/19 09:00 11/13/19 09:55 Imdur Er PO 30 mg DAILY [facility] Administration Metoprolol Tartrate 100 mg 11/08/19 09:00 11/13/19 21:04 Lopressor PO 100 mg BID [facility] Administration Promethazine HCl 12.5 mg 11/13/19 16:09 11/13/19 22:59 Phenergan PO 12.5 mg Q6H PRN Administration Nausea/Vomiting Ranolazine 500 mg 11/08/19 09:00 11/13/19 21:03 Ranexa PO 500 mg BID [facility] Administration Sevelamer Carbonate 800 mg 11/08/19 08:00 11/13/19 16:42 Renvela PO 800 mg TID-WM [facility] Administration Sodium Chloride 10 ml 11/07/19 21:27 11/12/19 09:47 Flush - Normal Saline IVF 10 ml Q12HR PRN Administration Saline Flush Tramadol HCl 50 mg 11/11/19 10:29 11/13/19 21:05 Ultram PO 50 mg Q12H PRN Administration Moderate Pain (4-6) - Exam General Appearance: NAD, awake alert ENT: moist mucosa Heart: RRR, no murmur, no gallops, no rubs Respiratory: CTAB, no wheezes, no rales, no ronchi Gastrointestinal: soft, non-tender, non-distended, normal bowel sounds Extremities: no edema Psychiatric: normal affect, normal behavior, A&O x 3 Hosp A/P (1) Acute on chronic combined systolic (congestive) and diastolic (congestive) heart failure Code(s): I50.43 - ACUTE ON CHRONIC COMBINED SYSTOLIC AND DIASTOLIC HRT FAIL Status: Acute (2) Acute worsening of stage 4 chronic kidney disease Code(s): N18.4 - CHRONIC KIDNEY DISEASE, STAGE 4 (SEVERE) Status: Acute (3) CAD (coronary artery disease) Code(s): I25.10 - ATHSCL HEART DISEASE OF [place] CORONARY ARTERY W/O ANG PCTRS Status: Chronic (4) Diabetes mellitus type II, uncontrolled Code(s): E11.65 - TYPE 2 DIABETES MELLITUS WITH HYPERGLYCEMIA Status: Chronic (5) HTN (hypertension) Code(s): I10 - ESSENTIAL (PRIMARY) HYPERTENSION Status: Chronic Qualifiers: Hypertension type: essential hypertension Qualified Code(s): I10 - Essential (primary) hypertension (6) Anemia of chronic disease Code(s): D63.8 - ANEMIA IN OTHER CHRONIC DISEASES CLASSIFIED ELSEWHERE Status : Acute - Plan Creatinine stabilized at 4.5, Dr. Giana bond, Lasix on hold since 11/12 Diuresed well, stopped Lasix, strict Is and Os Dr. Elda bond for Cards GI f/u outpatient for chronic nausea
[2019-11-14] MEDS: Gabapentin 300 MG CAP PO SCH (10:17)
[2019-11-14] MEDS: hydrALAZINE 25 MG TAB PO SCH ×3 (10:18→21:09)
[2019-11-14] MEDS: Aspirin 325 mg Enteric Coated Tablet PO SCH (10:18)
[2019-11-14] MEDS: Clopidogrel Bisulfate 75 MG TAB PO SCH (10:18)
[2019-11-14] MEDS: Isosorbide Mononitrate (ER) 30 MG TAB PO SCH (10:18)
[2019-11-14] MEDS: Amlodipine 10 MG TAB PO SCH (10:18)
[2019-11-14] MEDS: Sevelamer Carbonate 800 MG TAB PO SCH ×3 (10:18→18:15)
[2019-11-14] MEDS: Metoprolol Tartrate 100 MG TAB PO SCH ×2 (10:19→21:09)
[2019-11-14] MEDS: Famotidine/PF 20 mg/2ml Vial SLOW IVP SCH (10:19)
[2019-11-14] MEDS ORDERED: Polyethylene Glycol 3350 17 GM Packet PO SCH (15:15)
--- NOTE | 2019-11-14 16:16 | PDOC.CPN ---
- Subjective Date: 11/14/19 Time: 08:30 Interval history: The pt seen and examined. No overnight events. No cardiac complaints. - Objective Allergies/Adverse Reactions: Allergies Allergy/AdvReac Type Severity Reaction Status Date / Time codeine AdvReac Verified 11/07/19 23:00 Visit Medications: Current Medications Acetaminophen (Tylenol) 650 mg PO Q4H PRN PRN Reason: Headache/Fever/Mild Pain (1-3) Last Admin: 11/08/19 22:06 Dose: 650 mg Acetaminophen (Tylenol) 650 mg [place] Q4H PRN PRN Reason: Headache/Fever/Mild Pain (1-3) Amlodipine Besylate (Norvasc) 10 mg PO DAILY [facility] Last Admin: 11/14/19 10:18 Dose: 10 mg Aspirin (Ecotrin) 325 mg PO DAILY [facility] Last Admin: 11/14/19 10:18 Dose: 325 mg Atorvastatin Calcium (Lipitor) 40 mg PO HS [facility] Last Admin: 11/13/19 21:04 Dose: 40 mg Benzonatate (Tessalon) 100 mg PO TIDPRN PRN PRN Reason: Cough Clopidogrel Bisulfate (Plavix) 75 mg PO DAILY [facility] Last Admin: 11/14/19 10:18 Dose: 75 mg Dextrose/Water (Dextrose 50%) 25 gm SLOW IVP PRN PRN PRN Reason: Hypoglycemia Famotidine (Pepcid) 20 mg SLOW IVP DAILY [facility] Last Admin: 11/14/19 10:19 Dose: 20 mg Gabapentin (Neurontin) 300 mg PO DAILY [facility] Last Admin: 11/14/19 10:17 Dose: 300 mg Glucagon (Glucagon) 1 mg IM PRN PRN PRN Reason: Hypoglycemia Guaifenesin/Dextromethorphan (Robitussin Dm) 15 ml PO Q4H PRN PRN Reason: Cough Last Admin: 11/12/19 23:09 Dose: 15 ml Hydralazine HCl (Apresoline) 50 mg PO TID [facility] Last Admin: 11/14/19 10:18 Dose: 50 mg Insulin Glargine 80 units/ (Miscellaneous Medication) 0.8 mls @ 0 mls/hr SC HS [facility] Last Admin: 11/13/19 21:04 Dose: 0.8 mls Dextrose/Water (D5w) 1,000 mls @ 0 mls/hr IV .Q0M PRN PRN Reason: Hypoglycemia Insulin Human Lispro (Humalog) 0 units SC .AGGRESSIVE SLIDING PRN PRN Reason: Aggressive Correctional Scale Last Admin: 11/13/19 18:13 Dose: 3 unit Isosorbide Mononitrate (Imdur Er) 30 mg PO DAILY [facility] Last Admin: 11/14/19 10:18 Dose: 30 mg Metoprolol Tartrate (Lopressor) 100 mg PO BID [facility] Last Admin: 11/14/19 10:19 Dose: 100 mg Liraglutide [Victoza (2-Ricardo] 0.6 Mg) 0 each SC DAILY [facility] Polyethylene Glycol (Miralax) 17 gm PO DAILY [facility] Polyethylene Glycol (Miralax) 17 gm PO NOW [facility] Stop: 11/14/19 17:15 Promethazine HCl (Phenergan) 12.5 mg PO Q6H PRN PRN Reason: Nausea/Vomiting Last Admin: 11/13/19 22:59 Dose: 12.5 mg Ranolazine (Ranexa) 500 mg PO BID [facility] Last Admin: 11/14/19 10:18 Dose: 500 mg Sevelamer Carbonate (Renvela) 800 mg PO TID[facility] Last Admin: 11/14/19 12:32 Dose: 800 mg Sodium Chloride (Flush - Normal Saline) 10 ml IVF Q12HR PRN PRN Reason: Saline Flush Last Admin: 11/14/19 10:20 Dose: 10 ml Sodium Chloride (Flush - Normal Saline) 10 ml IVF PRN PRN PRN Reason: Saline Flush Tramadol HCl (Ultram) 50 mg PO Q12H PRN PRN Reason: Moderate Pain (4-6) Last Admin: 11/13/19 21:05 Dose: 50 mg Vital Signs & Weight: Vital Signs Temp Pulse Resp BP Pulse Ox 11/14/19 10:18 73 11/14/19 08:00 98.1 F 73 18 155/78 H 97 Admit Weight 306 lb 4.8 oz Weight 293 lb 4.8 oz - Physical Exam General: alert & oriented x3 HEENT: mucus membranes moist Neck: supple neck Cardiac: regular rate and rhythm, S1/S2 Lungs: clear to auscultation, decreased breath sounds Neuro: cranial nerve 2-12 intact - Labs Result Diagrams: 11/10/19 07:38 11/14/19 03:37 Troponin/CKMB CK-MB (CK-2) 3.0 ng/mL (0-6.6) 11/12/19 12:36 Troponin I 0.034 ng/mL (< 0.028) H 11/12/19 12:36 - Telemetry Sinus rhythms and dysrhythmias: sinus rhythm - Assessment/Plan Assessment/Plan: 1. CAD - no CP at this moment; she has residual stenosis of 50% in the LAD and RCA. Continue present therapy. No chest pain. Cr level 4.8 today from 4.5 yesterday; on Metoprolol, ASA, Plavix, and Lipitor; not on GADIEL/ARB due to hx of CKD 2. Acute on Chronic combined HF with EF 50-55% (40-45% in 09/2019) and grade I dd - on BBlocker; Lasix was stopped on 11/12/2019 for worsened of renal function ; not on GADIEL/ARB due to hx of CKD 3. KAY on CKD - managed by carpet layer helper (possible HD in future?) 4. HTN - stable 5. Insulin-dependent DM 6. Anemia - stableChest clear. RRR. 7. Sleep apnea 8. nausea - possible Gastroparesis? 9. Depression MAR reviewed * Echo today showed EF 50-55% (40-45% in 09/2019), grade I dd, hypokinetic lateral wall, trace MR and [place], mild TR Pt. seen and eval. by me. I agree with the A/P by the LAWN CARE WORKER. Chest clear. RRR. Minimal edema. I spoke with nephrology today, he will discuss dialysis with her.
--- NOTE | 2019-11-14 16:51 | PRG ---
DATE OF SERVICE: 11/14/2019 OBJECTIVE: VITAL SIGNS: The patient is noted with following vital signs. Afebrile, temperature 98.1, pulse 73, respiratory rate of 18, O2 saturation 97%, blood pressure 155/78. HEENT: Unremarkable. CARDIOVASCULAR SYSTEM: First and second heart sounds were heard. RESPIRATORY SYSTEM: Clear to auscultation. DIGESTIVE SYSTEM: Revealed a benign abdomen. EXTREMITIES: No peripheral edema. SKIN: No new gross rash. LYMPHATICS: No peripheral lymphadenopathy. LABORATORY INVESTIGATION: Showed hemoglobin 11.1. Chemistry, creatinine of 4.58 with BUN of 62. IMPRESSION: 1. Advanced chronic kidney disease, stage 5. 2. Hypervolemia, seems to have responded to diuretics. 3. Cardiomyopathy. PLAN: 1. Creatinine seems to have stabilized at 4.5. We will continue current renal supportive measures. 2. Diuretics still on hold. However, if the patient begins to show earlier signs of fluid overloaded, we will resume this medication. 3. Further management to be dependent on the clinical course. At this point, no emergent indication for renal replacement therapy dialysis. Job ID: [id number]
[2019-11-14] MEDS: Promethazine 25 MG TAB PO PRN (18:18)
[2019-11-14] MEDS: HumaLOG 300 UNITS/3 ML VIAL SC PRN (18:36)
[2019-11-14] MEDS ORDERED: Furosemide 100 MG/10 ML VIAL SLOW IVP SCH (19:45)
[2019-11-14] MEDS: Atorvastatin Calcium 40 MG TAB PO SCH (21:09)
[2019-11-14] MEDS: traMADol HCl 50 MG TAB PO PRN (21:12)
[2019-11-14] MEDS: Insulin Glargine 80 UNITS in Pre-Filled Syringe 1 EACH SC SCH (21:15)
[2019-11-15] MEDS ORDERED: CEFAZOLIN 2 GM in Premix Bag 1 BAG IVPB SCH (00:15)
[2019-11-15] MEDS: Promethazine 25 MG TAB PO PRN ×2 (00:16→21:18)
[2019-11-15 04:58] LABS: Anion Gap 17 mmol/L (10-20); BUN (Urea Nitrogen) 66 mg/dL (7.0-18.7); Calc. Creatinine Clearance 29 mL/min (70-130); Calcium 8.8 mg/dL (7.8-10.44); Carbon Dioxide 24 mmol/L (22-29); Chloride 104 mmol/L (98-107); Estimated GFR-MDRD 9; Glucose 263 mg/dL (70-105); Potassium 4.6 mmol/L (3.5-5.1); Sodium 140 mmol/L (136-145)
[2019-11-15] MEDS: Furosemide 100 MG/10 ML VIAL SLOW IVP SCH ×2 (05:36→14:00)
--- NOTE | 2019-11-15 08:22 | PDOC.CPN ---
- Subjective Date: 11/15/19 Time: 08:22 Interval history: The pt seen and examined. NO overnight events. No cardiac complaints. - Objective Allergies/Adverse Reactions: Allergies Allergy/AdvReac Type Severity Reaction Status Date / Time codeine AdvReac Verified 11/07/19 23:00 Visit Medications: Current Medications Acetaminophen (Tylenol) 650 mg PO Q4H PRN PRN Reason: Headache/Fever/Mild Pain (1-3) Last Admin: 11/08/19 22:06 Dose: 650 mg Acetaminophen (Tylenol) 650 mg KS Q4H PRN PRN Reason: Headache/Fever/Mild Pain (1-3) Amlodipine Besylate (Norvasc) 10 mg PO DAILY [facility] Last Admin: 11/14/19 10:18 Dose: 10 mg Aspirin (Ecotrin) 325 mg PO DAILY [facility] Last Admin: 11/14/19 10:18 Dose: 325 mg Atorvastatin Calcium (Lipitor) 40 mg PO HS [facility] Last Admin: 11/14/19 21:09 Dose: 40 mg Benzonatate (Tessalon) 100 mg PO TIDPRN PRN PRN Reason: Cough Clopidogrel Bisulfate (Plavix) 75 mg PO DAILY [facility] Last Admin: 11/14/19 10:18 Dose: 75 mg Dextrose/Water (Dextrose 50%) 25 gm SLOW IVP PRN PRN PRN Reason: Hypoglycemia Famotidine (Pepcid) 20 mg SLOW IVP DAILY [facility] Last Admin: 11/14/19 10:19 Dose: 20 mg Furosemide (Lasix) 80 mg SLOW IVP 0600,1400 [facility] Last Admin: 11/15/19 05:36 Dose: 80 mg Gabapentin (Neurontin) 300 mg PO DAILY [facility] Last Admin: 11/14/19 10:17 Dose: 300 mg Glucagon (Glucagon) 1 mg IM PRN PRN PRN Reason: Hypoglycemia Guaifenesin/Dextromethorphan (Robitussin Dm) 15 ml PO Q4H PRN PRN Reason: Cough Last Admin: 11/12/19 23:09 Dose: 15 ml Hydralazine HCl (Apresoline) 50 mg PO TID [facility] Last Admin: 11/14/19 21:09 Dose: 50 mg Insulin Glargine 80 units/ (Miscellaneous Medication) 0.8 mls @ 0 mls/hr [facility] Last Admin: 11/14/19 21:15 Dose: Not Given Dextrose/Water (D5w) 1,000 mls @ 0 mls/hr IV .Q0M PRN PRN Reason: Hypoglycemia Cefazolin Sodium/Dextrose 2 gm (/ Device) 50 mls @ 100 mls/hr IVPB ONCALL-OR [facility] Stop: 11/16/19 00:16 Insulin Human Lispro (Humalog) 0 units SC .AGGRESSIVE SLIDING PRN PRN Reason: Aggressive Correctional Scale Last Admin: 11/14/19 18:36 Dose: 3 unit Isosorbide Mononitrate (Imdur Er) 30 mg PO DAILY [facility] Last Admin: 11/14/19 10:18 Dose: 30 mg Metoprolol Tartrate (Lopressor) 100 mg PO BID [facility] Last Admin: 11/14/19 21:09 Dose: 100 mg Liraglutide [Victoza (2-Ricardo] 0.6 Mg) 0 each SC DAILY [facility] Polyethylene Glycol (Miralax) 17 gm PO DAILY [facility] Promethazine HCl (Phenergan) 12.5 mg PO Q6H PRN PRN Reason: Nausea/Vomiting Last Admin: 11/15/19 00:16 Dose: 12.5 mg Ranolazine (Ranexa) 500 mg PO BID [facility] Last Admin: 11/14/19 21:08 Dose: 500 mg Sevelamer Carbonate (Renvela) 800 mg PO TID[facility] Last Admin: 11/14/19 18:15 Dose: 800 mg Sodium Chloride (Flush - Normal Saline) 10 ml IVF Q12HR PRN PRN Reason: Saline Flush Last Admin: 11/14/19 21:11 Dose: 10 ml Sodium Chloride (Flush - Normal Saline) 10 ml IVF PRN PRN PRN Reason: Saline Flush Tramadol HCl (Ultram) 50 mg PO Q12H PRN PRN Reason: Moderate Pain (4-6) Last Admin: 11/14/19 21:12 Dose: 50 mg Vital Signs & Weight: Vital Signs Temp Pulse Resp BP BP BP Pulse Ox 11/15/19 07:58 97.6 F 80 16 139/77 95 11/15/19 04:00 98.4 F 80 18 126/69 96 11/14/19 21:09 70 146/70 H Admit Weight 306 lb 4.8 oz Weight 296 lb 1.6 oz - Physical Exam General: alert & oriented x3 HEENT: mucus membranes moist Neck: supple neck Cardiac: regular rate and rhythm, S1/S2 Lungs: clear to auscultation, decreased breath sounds - Labs Result Diagrams: 11/10/19 07:38 11/15/19 04:16 Troponin/CKMB CK-MB (CK-2) 3.0 ng/mL (0-6.6) 11/12/19 12:36 Troponin I 0.034 ng/mL (< 0.028) H 11/12/19 12:36 - Telemetry Sinus rhythms and dysrhythmias: sinus rhythm - Assessment/Plan Assessment/Plan: 1. CAD - no CP at this moment; s/p re-do cath in 10/2019 with residual stenosis of 50% in the LAD and RCA. Continue present therapy. On Metoprolol, ASA, Plavix , and Lipitor; not on GADIEL/ARB due to hx of CKD 2. Acute on Chronic combined HF with EF 50-55% (40-45% in 09/2019) and grade I dd - on BBlocker; Lasix was stopped on 11/12/2019 for worsened of renal function ; not on GADIEL/ARB due to hx of CKD 3. KAY on CKD - Plan for HD cath placement today;managed by can closing machine operator 4. HTN - stable 5. Insulin-dependent DM 6. Anemia - stableChest clear. RRR. 7. Sleep apnea 8. nausea - possible Gastroparesis? 9. Depression MAR reviewed * Echo today showed EF 50-55% (40-45% in 09/2019), grade I dd, hypokinetic lateral wall, trace MR and KS, mild TR
[2019-11-15] MEDS: Famotidine/PF 20 mg/2ml Vial SLOW IVP SCH (08:39)
[2019-11-15] MEDS: Isosorbide Mononitrate (ER) 30 MG TAB PO SCH (08:39)
[2019-11-15] MEDS: Metoprolol Tartrate 100 MG TAB PO SCH ×2 (08:40→21:12)
[2019-11-15] MEDS: Aspirin 325 mg Enteric Coated Tablet PO SCH (08:40)
[2019-11-15] MEDS: Amlodipine 10 MG TAB PO SCH (08:40)
[2019-11-15] MEDS: Gabapentin 300 MG CAP PO SCH (08:41)
[2019-11-15] MEDS: hydrALAZINE 25 MG TAB PO SCH ×3 (08:45→21:12)
[2019-11-15] MEDS: Polyethylene Glycol 3350 17 GM Packet PO SCH (09:03)
[2019-11-15] MEDS ORDERED: Heparin 10,000 UNITS/ 10 ML VIAL ONE (09:42)
[2019-11-15 10:31] LABS: HBSAB Concentration 4.43 mIU/mL; HBSAg Index 0.27 S/CO (0-0.99); Hep B Core Total Ab Non-Reactive (NonReactive); Hep B Core Total Index 0.08 S/CO (0-0.79); Hep B Surf AB Non-Reactive (NonReactive); Hep B Surf Ag Non-Reactive S/CO (NonReactive); Hep C IgG Ab Non-Reactive (NonReactive)
[2019-11-15] MEDS ORDERED: Bupivacaine PF 0.5% 30 ML VIAL ONE (11:13)
[2019-11-15] MEDS ORDERED: Lidocaine 1% w/Epinephrine 1:100K 20 ML VIAL ONE (11:13)
[2019-11-15] MEDS ORDERED: Sodium Chloride 0.9% 0 ML ONE (11:13)
--- NOTE | 2019-11-15 11:15 | HP ---
HISTORY OF PRESENT ILLNESS: A 48-year-old female with morbid obesity, metabolic syndrome, undiagnosed and unevaluated sleep apnea, most likely diabetes, hypertension, status post left BKA, presents with end-stage renal disease, diastolic dysfunction, coronary artery disease, in need of dialysis access due to fluid overload and congestive heart failure. The patient is readmitted to the hospitalist service. Dr. Faria has seen her. She has been cared for at [facility] in the past. Plan is for placement of hemodialysis catheter and central line today. Postoperatively, we will have ultrasound vein mapping and plan dialysis fistula more likely next week. ALLERGIES: NONE, BUT CODEINE AND DEMEROL CAUSE HALLUCINATIONS. MEDICATIONS: 1. Victoza. 2. Insulin. 3. Cymbalta. 4. Renvela. 5. Ranexa. 6. Apresoline. 7. Lopressor. 8. Neurontin. 9. Plavix. 10. Lipitor. 11. Nitro patch. 12. Norvasc. PAST MEDICAL HISTORY: Undiagnosed sleep apnea. She feels that she has sleep apnea. She is seeking evaluation in the future and has that scheduled. Insulin-dependent diabetes mellitus, hypertension, coronary artery disease. She had a cardiac catheterization this year, has a RCA lesion not amenable to stenting. Has good ejection fraction 50% to 60%. Has minimal valvular disease. Has a positive stress test with reversible ischemia in RCA. Has had a prior myocardial infarction, evaluated by Cardiology this hospitalization. Metabolic syndrome, morbid obesity, 5 feet 9 inches, 296 pounds, 43 BMI. PAST SURGICAL HISTORY: Appendectomy, three C-sections, total abdominal hysterectomy, bilateral salpingo-oophorectomy, cholecystectomy, left below-knee amputation, cardiac catheterization, left total knee replacement, and 3 knee surgeries prior to that. REVIEW OF SYSTEMS: 10-point otherwise noncontributory. PHYSICAL EXAMINATION: VITAL SIGNS: Height 5 feet 9 inches, 296 pounds, 43 BMI, temperature 97.6, heart rate 80, blood pressure 139/77. HEENT: Sclerae nonicteric. SKIN: Nonjaundiced. LUNGS: Clear to auscultation. CARDIAC: Regular rhythm. No murmur or gallop. ABDOMEN: Soft, obese, nontender. EXTREMITIES: Left BKA status. Antecubital areas indicative of prior IV access, IV left wrist, poor IV access. Extremities unremarkable otherwise. Palpable radial pulses. LABORATORY DATA: White count 10, hemoglobin 11. Basic metabolic profile; sodium 140, potassium 4.6, creatinine 5.07, BUN 66, GFR 9. ASSESSMENT AND PLAN: 1. End-stage renal disease. Plan placement of hemodialysis catheter and central line to initiate dialysis. Postoperatively, we will order ultrasound vein mapping in more than likely next week prior to discharge home. We will plan placement of left or right arm fistula pending vein mapping to identify the best vein. As far as long-term dialysis access, I have discussed this with her and red devil vein fistula is preferable to a prosthetic graft and sometimes a second operation is required to achieve a red devil vein function fistula. She is morbidly obese, which will complicate her dialysis access and possibly require staged transposition procedure, but we will see what her veins look like to see how it appears. 2. Morbid obesity. 3. Metabolic syndrome. 4. Coronary artery disease. 5. Diabetes mellitus. 6. Hypertension. 7. Elevated cholesterol. 8. Probable sleep apnea. 9. Below-knee amputation status. Job ID: [id number]
[2019-11-15] MEDS ORDERED: Fentanyl 100 MCG/2 ML VIAL ONE ×2 (11:41→12:32)
[2019-11-15] MEDS ORDERED: Midazolam HCl 2 mg/2 ml Vial ONE (11:41)
[2019-11-15] MEDS ORDERED: Acetaminophen 500 MG TAB PO PRN (11:44)
[2019-11-15] MEDS ORDERED: PROPOFOL 200 MG/20 ML VIAL ONE (12:22)
[2019-11-15] MEDS ORDERED: Ondansetron PF 4 MG/2 ML Vial ONE (12:32)
--- NOTE | 2019-11-15 12:52 | RAD ---
Portable frontal chest radiograph: 11/15/2019 COMPARISON: 11/07/2019 HISTORY: Evaluate chest following central line placements FINDINGS: There is a new right sided dialysis catheter with distal tip overlying the region of the ca voatrial junction. There is a new left-sided vascular catheter with distal tip also overlying the region of the cavoatrial junction. There is stable prominence of the cardiac silhouette. No pneumotho rax, pleural fluid, focal consolidation, or alveolar edema. IMPRESSION: Bilateral vascular catheters as detailed above. No pneumothorax.
--- NOTE | 2019-11-15 14:09 | OP ---
DATE OF PROCEDURE: 11/15/2019 PREOPERATIVE DIAGNOSES: End-stage renal disease, needs to initiate dialysis. Morbid obesity. POSTOPERATIVE DIAGNOSES: End-stage renal disease, needs to initiate dialysis. Morbid obesity. PROCEDURE PERFORMED: Right IJ cuffed tunneled hemodialysis catheter, left IJ central line triple lumen ultrasound fluoroscopy use. ANESTHESIA: Intravenous sedation local 0.5% Marcaine with 30 mL mixed with 1% Xylocaine with epinephrine 20 mL. DESCRIPTION OF PROCEDURE: The patient was taken to the operating room, where under intravenous sedation, neck and chest prepared with ChloraPrep and draped in routine fashion. Local anesthetic mixture was infiltrated into the skin and subcutaneous tissue about the operative site. Trocar catheters cannulated the right left internal jugular vein. J-wire was inserted under ultrasound guidance. Entrance site sharply enlarged with 11 blade stab incision was made over the right chest. Seldinger technique used to place a triple-lumen catheter in the left IJ, secured with 3-0 nylon suture, removed the J-wire, and aspirated each port of blood, flushed with saline solution. Cuffed tunneled [employer] precurved, hemodialysis catheter tunneled between the 2 incisions, placed the fabric cuff beneath the skin exit site on the chest, secured with 3-0 nylon suture. Sterile dressing applied. Smaller and medium size dilators placed with J-wire into the internal jugular vein removed. Dilator and Peel-Away sheath placed over the J-wire in superior vena cava and dilator and J-wire removed. Catheter placed with the Peel-Away sheath. Peel-Away sheath removed. Platysma was approximated with 4-0 Monocryl, skin with subdermal 4-0 Monocryl and Eek glue applied. Each port aspirated blood flushed with saline solution and heparinized saline solution 1000 units of heparin per mL, indicating volume of port. Fluoroscopy got fluoroscopic images revealed good line placement bilaterally. Job ID: [id number]
[2019-11-15] MEDS: Sevelamer Carbonate 800 MG TAB PO SCH ×3 (15:02→21:10)
[2019-11-15] MEDS: traMADol HCl 50 MG TAB PO PRN ×2 (15:09→21:18)
[2019-11-15] MEDS: Clopidogrel Bisulfate 75 MG TAB PO SCH (15:13)
--- NOTE | 2019-11-15 15:36 | ULT ---
VENOUS DUPLEX STUDY OF VEINS OF BILATERAL UPPER EXTREMITIES: 11/15/19 INDICATIONS: Venous mapping of the upper extremities to assess for dialysis fistula graft. End-stage renal disease . RIGHT UPPER EXTREMITY BRACHIAL ARTERY: 5.4 mm RADIAL ARTERY: 2.6 mm ULNAR ARTERY: 3.6 mm CEPHALIC VEIN Axilla: 2.5 mm Proximal Humerus: 2.6 mm Mid Humerus: 3.0 mm Elbow: Thrombosed Proximal Forearm: 2.3 mm Mid Forearm: 3.0 mm BASILIC VEIN Axilla: 2.5 mm Proximal Humerus: 3.0 mm Mid Humerus: 2.7 mm Distal Humerus: 1.3 mm Elbow: 1.3 mm Mid Forearm: 1.2 mm LEFT UPPER EXTREMITY Left upper extremity arteries were not measured due to bandage material according to the technologist . CEPHALIC VEIN Axilla: 2.8 mm Proximal Humerus: 2.6 mm Mid Humerus: 1.7 mm Distal Humerus: 1.8 mm Elbow: 0.8 mm Mid Forearm: 0.9 mm BASILIC VEIN Axilla: 3.0 mm Proximal Humerus: 2.9 mm Mid Humerus: 1.9 mm Distal Humerus: 1.6 mm Elbow: 1.1 mm Mid Forearm: 0.8 mm POS: [facility]
--- NOTE | 2019-11-15 16:43 | PRG ---
DATE OF SERVICE: 11/15/2019 SUBJECTIVE: The patient is seen and examined. Today, she is complaining of not feeling well, poor appetite, has accumulated increased amount of weight, and little bit short of breath especially on minimal exertion. Noted with the following signs. OBJECTIVE: VITAL SIGNS: Afebrile. Temperature 97.4, pulse 80, blood pressure 139/77. HEENT: Unremarkable. CARDIOVASCULAR: First and second heart sounds were heard. RESPIRATORY: Clear to auscultation. DIGESTIVE: Benign abdomen with positive bowel sounds. EXTREMITIES: No peripheral edema. SKIN: No new gross rash. LYMPHATICS: No peripheral lymphadenopathy. LABORATORY INVESTIGATION: Showed a hemoglobin of 11.1. Chemistry showed a creatinine of 1.07, BUN of 66. IMPRESSION: 1. Advanced chronic kidney disease stage 5. 2. Hypervolemia. PLAN: 1. The patient to be initiated on dialysis today with ultrafiltration as tolerated by hemodynamics. 2. residential sales manager consult for outpatient dialysis placement. 3. dialysis protocol. 4. Further management will be dependent on the clinical course. Job ID: [id number]
--- NOTE | 2019-11-15 18:02 | PDOC.HOSPP ---
- Subjective Encounter Date: 11/15/19 Encounter Time: 18:02 Subjective: pt up in bed has pain to her iv insert site. - Objective Vital Signs & Weight: Vital Signs (12 hours) Temp Pulse Resp BP BP BP Pulse Ox 11/15/19 16:15 97.4 F L 73 12 155/73 H 94 L 11/15/19 15:11 80 139/77 11/15/19 13:10 97.2 F L 74 18 134/63 96 11/15/19 08:45 80 139/77 11/15/19 08:40 80 139/77 11/15/19 08:00 95 11/15/19 07:58 97.6 F 80 16 139/77 95 Weight Admit Weight 306 lb 4.8 oz Weight 296 lb 1.6 oz I&O: 11/14/19 11/15/19 11/16/19 06:59 06:59 06:59 Intake Total 540 600 240 Output Total 600 1750 Balance -60 -1150 240 Result Diagrams: 11/10/19 07:38 11/15/19 04:16 Additional Labs: Accuchecks 11/15/19 11/15/19 11/15/19 17:15 13:49 06:08 POC Glucose 168 H 133 H 179 H 11/14/19 21:09 POC Glucose 123 H Hospitalist ROS - Review of Systems ENT: denies: ear pain, ear discharge, nose pain, nose discharge, nose congestion , mouth pain, mouth swelling, throat pain, throat swelling, other Respiratory: denies: cough, dry, shortness of breath, hemoptysis, SOB with excertion, pleuritic pain, sputum, wheezing, other Cardiovascular: denies: chest pain, palpitations, orthopnea, paroxysmal noc. dyspnea, edema, light headedness, other - Medication Medications: Active Medications Generic Name Dose Route Start Last Admin Trade Name Freq PRN Reason Stop Dose Admin Amlodipine Besylate 10 mg 11/12/19 09:00 11/15/19 08:40 Norvasc PO 10 mg DAILY [facility] Administration Aspirin 325 mg 11/08/19 09:00 11/15/19 08:40 Ecotrin PO 325 mg DAILY [facility] Administration Atorvastatin Calcium 40 mg 11/08/19 21:00 11/14/19 21:09 Lipitor PO 40 mg HS [facility] Administration Clopidogrel Bisulfate 75 mg 11/08/19 09:00 11/15/19 15:13 Plavix PO 75 mg DAILY [facility] Administration Famotidine 20 mg 11/08/19 09:00 11/15/19 08:39 Pepcid SLOW IVP 20 mg DAILY [facility] Administration Gabapentin 300 mg 11/08/19 09:00 11/15/19 08:41 Neurontin PO 300 mg DAILY [facility] Administration Guaifenesin/Dextromethorphan 15 ml 11/08/19 06:48 11/12/19 23:09 Robitussin Dm PO 15 ml Q4H PRN Administration Cough Hydralazine HCl 50 mg 11/09/19 15:00 11/15/19 15:11 Apresoline PO Not Given TID [facility] Insulin Glargine 80 units/ 0.8 mls @ 0 mls/hr 11/08/19 21:00 11/14/19 21:15 Miscellaneous Medication SC Not Given HS [facility] Insulin Human Lispro 0 units 11/10/19 10:10 11/14/19 18:36 Humalog SC 3 unit .AGGRESSIVE SLIDING PRN Administration Aggressive Correctional Scale Isosorbide Mononitrate 30 mg 11/11/19 09:00 11/15/19 08:39 Imdur Er PO 30 mg DAILY [facility] Administration Metoprolol Tartrate 100 mg 11/08/19 09:00 11/15/19 08:40 Lopressor PO 100 mg BID [facility] Administration Polyethylene Glycol 17 gm 11/15/19 09:00 11/15/19 09:03 Miralax PO Not Given DAILY [facility] Promethazine HCl 12.5 mg 11/13/19 16:09 11/15/19 00:16 Phenergan PO 12.5 mg Q6H PRN Administration Nausea/Vomiting Ranolazine 500 mg 11/08/19 09:00 11/15/19 08:39 Ranexa PO 500 mg BID [facility] Administration Sevelamer Carbonate 800 mg 11/08/19 08:00 11/15/19 15:02 Renvela PO 800 mg TID-[facility] Administration Sodium Chloride 10 ml 11/07/19 21:27 11/15/19 08:42 Flush - Normal Saline IVF 10 ml Q12HR PRN Administration Saline Flush Tramadol HCl 50 mg 11/15/19 11:44 11/15/19 15:09 Ultram PO 50 mg Q4H PRN Administration Moderate Pain (4-6) - Exam ENT: negative: normocephalic atraumatic, no oropharyngeal lesions, moist mucosa , dry oral mucosa Neck: negative: supple, symmetric, no JVD, no thyromegaly, no lymphadenopathy, no carotid bruit, JVD Heart: negative: RRR, no murmur, no gallops, no rubs, normal peripheral pulses, irregular, diminshed peripheral pulses, murmur present, II/IV, III/IV Respiratory: negative: CTAB, no wheezes, no rales, no ronchi, normal chest expansion, no tachypnea, normal percussion, rales, rhonchi, tachypneic, wheezes Hosp A/P - Plan (1) Acute on chronic combined systolic (congestive) and diastolic (congestive) heart failure Code(s): I50.43 - ACUTE ON CHRONIC COMBINED SYSTOLIC AND DIASTOLIC HRT FAIL Status: Acute (2) Acute worsening of stage 4 chronic kidney disease Code(s): N18.4 - CHRONIC KIDNEY DISEASE, STAGE 4 (SEVERE) Status: Acute (3) CAD (coronary artery disease) Code(s): I25.10 - ATHSCL HEART DISEASE OF [place] CORONARY ARTERY W/O ANG PCTRS Status: Chronic (4) Diabetes mellitus type II, uncontrolled Code(s): E11.65 - TYPE 2 DIABETES MELLITUS WITH HYPERGLYCEMIA Status: Chronic (5) HTN (hypertension) Code(s): I10 - ESSENTIAL (PRIMARY) HYPERTENSION Status: Chronic Qualifiers: Hypertension type: essential hypertension Qualified Code(s): I10 - Essential (primary) hypertension (6) Anemia of chronic disease Code(s): D63.8 - ANEMIA IN OTHER CHRONIC DISEASES CLASSIFIED ELSEWHERE Status : Acute - Plan Creatinine stabilized at 4.5, Dr. Giana bond, Lasix on hold since 11/12 Diuresed well, stopped Lasix, strict Is and Os Dr. Elda bond for Cards GI f/u outpatient for chronic nausea 11/15 pt had her tunnel cath placed. dialysis per nephro.
[2019-11-15] MEDS: Morphine 2 MG/ML SYRINGE SLOW IVP PRN (18:43)
[2019-11-15] MEDS: Atorvastatin Calcium 40 MG TAB PO SCH (21:14)
[2019-11-15] MEDS: Insulin Glargine 80 UNITS in Pre-Filled Syringe 1 EACH SC SCH (21:14)
[2019-11-16 05:01] LABS: Anion Gap 14 mmol/L (10-20); BUN (Urea Nitrogen) 57 mg/dL (7.0-18.7); Calc. Creatinine Clearance 33 mL/min (70-130); Calcium 8.8 mg/dL (7.8-10.44); Carbon Dioxide 27 mmol/L (22-29); Chloride 103 mmol/L (98-107); Estimated GFR-MDRD 11; Glucose 120 mg/dL (70-105); Potassium 4.4 mmol/L (3.5-5.1); Sodium 140 mmol/L (136-145)
[2019-11-16] MEDS: traMADol HCl 50 MG TAB PO PRN ×2 (05:50→13:13)
[2019-11-16] MEDS: Promethazine 25 MG TAB PO PRN (05:51)
[2019-11-16] MEDS: Furosemide 100 MG/10 ML VIAL SLOW IVP SCH ×2 (05:51→15:26)
[2019-11-16] MEDS ORDERED: Heparin 10,000 UNITS/ 10 ML VIAL ONE (09:34)
[2019-11-16] MEDS: Morphine 2 MG/ML SYRINGE SLOW IVP PRN ×2 (09:48→20:57)
[2019-11-16] MEDS: Sevelamer Carbonate 800 MG TAB PO SCH ×3 (09:49→17:33)
[2019-11-16] MEDS ORDERED: Bisacodyl 10 MG SUPP PR SCH (11:15)
[2019-11-16] MEDS: Metoprolol Tartrate 100 MG TAB PO SCH ×2 (13:02→20:59)
[2019-11-16] MEDS: hydrALAZINE 25 MG TAB PO SCH ×3 (13:02→20:59)
[2019-11-16] MEDS: Clopidogrel Bisulfate 75 MG TAB PO SCH (13:09)
[2019-11-16] MEDS: Isosorbide Mononitrate (ER) 30 MG TAB PO SCH (13:10)
[2019-11-16] MEDS: Promethazine HCl 25 MG/ML VIAL IM/IV PRN ×2 (13:10→20:55)
[2019-11-16] MEDS: Famotidine/PF 20 mg/2ml Vial SLOW IVP SCH (13:11)
[2019-11-16] MEDS: Amlodipine 10 MG TAB PO SCH (13:11)
[2019-11-16] MEDS: Gabapentin 300 MG CAP PO SCH (13:11)
[2019-11-16] MEDS: Aspirin 325 mg Enteric Coated Tablet PO SCH (13:11)
[2019-11-16] MEDS: Polyethylene Glycol 3350 17 GM Packet PO SCH (13:14)
--- NOTE | 2019-11-16 14:36 | PDOC.HOSPP ---
- Subjective Encounter Date: 11/16/19 Encounter Time: 10:15 Subjective: pt in dialysis complains of having some nausea. she also is complaining of pain around her left neck area. - Objective Vital Signs & Weight: Vital Signs (12 hours) Temp Pulse Resp BP BP Pulse Ox 11/16/19 13:07 97.5 F L 87 18 148/75 H 97 11/16/19 07:46 97.6 F 81 18 138/75 95 11/16/19 03:26 98.9 F 81 20 132/70 93 L Weight Admit Weight 306 lb 4.8 oz Weight 294 lb 6.4 oz I&O: 11/15/19 11/16/19 11/17/19 06:59 06:59 06:59 Intake Total 600 1940 Output Total 1750 2900 Balance -1150 -960 Result Diagrams: 11/10/19 07:38 11/16/19 04:23 Additional Labs: Accuchecks 11/16/19 11/16/19 11/15/19 11:22 06:08 20:59 POC Glucose 109 120 H 171 H 11/15/19 17:15 POC Glucose 168 H Hospitalist ROS - Review of Systems Respiratory: denies: cough, dry, shortness of breath, hemoptysis, SOB with excertion, pleuritic pain, sputum, wheezing, other Cardiovascular: denies: chest pain, palpitations, orthopnea, paroxysmal noc. dyspnea, edema, light headedness, other Gastrointestinal: reports: nausea Genitourinary: denies: dysuria, frequency, incontinence, hematuria, retention, other Musculoskeletal: denies: neck pain, shoulder pain, arm pain, back pain, hand pain, leg pain, foot pain, other - Medication Medications: Active Medications Generic Name Dose Route Start Last Admin Trade Name Freq PRN Reason Stop Dose Admin Amlodipine Besylate 10 mg 11/12/19 09:00 11/16/19 13:11 Norvasc PO 10 mg DAILY [facility] Administration Aspirin 325 mg 11/08/19 09:00 11/16/19 13:11 Ecotrin PO 325 mg DAILY [facility] Administration Atorvastatin Calcium 40 mg 11/08/19 21:00 11/15/19 21:14 Lipitor PO 40 mg HS [facility] Administration Benzonatate 100 mg 11/11/19 23:53 11/16/19 04:01 Tessalon PO 100 mg TIDPRN PRN Administration Cough Bisacodyl 10 mg 11/16/19 11:15 11/16/19 13:12 Dulcolax AK 11/16/19 16:00 10 mg NOW [facility] Administration Clopidogrel Bisulfate 75 mg 11/08/19 09:00 11/16/19 13:09 Plavix PO 75 mg DAILY [facility] Administration Famotidine 20 mg 11/08/19 09:00 11/16/19 13:11 Pepcid SLOW IVP 20 mg DAILY [facility] Administration Furosemide 80 mg 11/16/19 06:00 11/16/19 05:51 Lasix SLOW IVP 80 mg 0600,1400 [facility] Administration Gabapentin 300 mg 11/08/19 09:00 11/16/19 13:11 Neurontin PO 300 mg DAILY [facility] Administration Guaifenesin/Dextromethorphan 15 ml 11/08/19 06:48 11/12/19 23:09 Robitussin Dm PO 15 ml Q4H PRN Administration Cough Hydralazine HCl 50 mg 11/09/19 15:00 11/16/19 13:02 Apresoline PO Not Given TID [facility] Insulin Glargine 80 units/ 0.8 mls @ 0 mls/hr 11/08/19 21:00 11/15/19 21:14 Miscellaneous Medication SC 0.8 mls HS [facility] Administration Insulin Human Lispro 0 units 11/10/19 10:10 11/14/19 18:36 Humalog SC 3 unit .AGGRESSIVE SLIDING PRN Administration Aggressive Correctional Scale Isosorbide Mononitrate 30 mg 11/11/19 09:00 11/16/19 13:10 Imdur Er PO 30 mg DAILY [facility] Administration Metoprolol Tartrate 100 mg 11/08/19 09:00 11/16/19 13:02 Lopressor PO Not Given BID [facility] Morphine Sulfate 2 mg 11/15/19 18:03 11/16/19 09:48 Morphine SLOW IVP 2 mg BIDPRN PRN Administration Pain Polyethylene Glycol 17 gm 11/15/19 09:00 11/16/19 13:14 Miralax PO 17 gm DAILY [facility] Administration Promethazine HCl 12.5 mg 11/13/19 16:09 11/16/19 05:51 Phenergan PO 12.5 mg Q6H PRN Administration Nausea/Vomiting Promethazine HCl 12.5 mg 11/16/19 11:07 11/16/19 13:10 Phenergan IM/IV 12.5 mg Q6H PRN Administration Nausea/Vomiting Ranolazine 500 mg 11/08/19 09:00 11/16/19 13:10 Ranexa PO Not Given BID [facility] Sevelamer Carbonate 800 mg 11/08/19 08:00 11/16/19 13:12 Renvela PO 800 mg TID-[facility] Administration Sodium Chloride 10 ml 11/07/19 21:27 11/16/19 09:49 Flush - Normal Saline IVF 10 ml Q12HR PRN Administration Saline Flush Sodium Chloride 10 ml 11/07/19 21:27 11/15/19 18:44 Flush - Normal Saline IVF 10 ml PRN PRN Administration Saline Flush Tramadol HCl 50 mg 11/15/19 11:44 11/16/19 13:13 Ultram PO 50 mg Q4H PRN Administration Moderate Pain (4-6) - Exam Heart: negative: RRR, no murmur, no gallops, no rubs, normal peripheral pulses, irregular, diminshed peripheral pulses, murmur present, II/IV, III/IV Respiratory: negative: CTAB, no wheezes, no rales, no ronchi, normal chest expansion, no tachypnea, normal percussion, rales, rhonchi, tachypneic, wheezes Gastrointestinal: negative: soft, non-tender, non-distended, normal bowel sounds , no palpable masses, no hepatomegaly, no splenomegaly, no bruit, no guarding, no rigidity, tender to palpation, distended, diminished bowl sounds, voluntary guarding Extremities: negative: no cyanosis, no clubbing, no edema, 1+ LE edema, 2+ LE edema, clubbing Skin: negative: normal turgor, no lesions, no rashes, tenting Hosp A/P - Plan (1) Acute on chronic combined systolic (congestive) and diastolic (congestive) heart failure Code(s): I50.43 - ACUTE ON CHRONIC COMBINED SYSTOLIC AND DIASTOLIC HRT FAIL Status: Acute (2) Acute worsening of stage 4 chronic kidney disease Code(s): N18.4 - CHRONIC KIDNEY DISEASE, STAGE 4 (SEVERE) Status: Acute (3) CAD (coronary artery disease) Code(s): I25.10 - ATHSCL HEART DISEASE OF [place] CORONARY ARTERY W/O ANG PCTRS Status: Chronic (4) Diabetes mellitus type II, uncontrolled Code(s): E11.65 - TYPE 2 DIABETES MELLITUS WITH HYPERGLYCEMIA Status: Chronic (5) HTN (hypertension) Code(s): I10 - ESSENTIAL (PRIMARY) HYPERTENSION Status: Chronic Qualifiers: Hypertension type: essential hypertension Qualified Code(s): I10 - Essential (primary) hypertension (6) Anemia of chronic disease Code(s): D63.8 - ANEMIA IN OTHER CHRONIC DISEASES CLASSIFIED ELSEWHERE Status : Acute - Plan Creatinine stabilized at 4.5, Dr. Ginaa bond, Lasix on hold since 11/12 Diuresed well, stopped Lasix, strict Is and Os Dr. Elda bond for Cards GI f/u outpatient for chronic nausea 11/15 pt had her tunnel cath placed. dialysis per nephro. pt started her dialysis. will need dialysis set up. she has had chronic nausea. will see if she tolerates reglan.
--- NOTE | 2019-11-16 14:49 | PDOC.CPN ---
- Subjective Date: 11/16/19 Time: 14:49 Interval history: The pt seen and examined. No overnight events. No cardiac complaints. Only complaint she has intermittent nausea. - Objective Allergies/Adverse Reactions: Allergies Allergy/AdvReac Type Severity Reaction Status Date / Time codedav AdvReac Verified 11/07/19 23:00 Visit Medications: Current Medications Acetaminophen (Tylenol) 1,000 mg PO Q6H PRN PRN Reason: Moderate to Severe Pain (6-10) Amlodipine Besylate (Norvasc) 10 mg PO DAILY [facility] Last Admin: 11/16/19 13:11 Dose: 10 mg Aspirin (Ecotrin) 325 mg PO DAILY [facility] Last Admin: 11/16/19 13:11 Dose: 325 mg Atorvastatin Calcium (Lipitor) 40 mg PO HS [facility] Last Admin: 11/15/19 21:14 Dose: 40 mg Benzonatate (Tessalon) 100 mg PO TIDPRN PRN PRN Reason: Cough Last Admin: 11/16/19 04:01 Dose: 100 mg Bisacodyl (Dulcolax) 10 mg MO NOW [facility] Stop: 11/16/19 16:00 Last Admin: 11/16/19 13:12 Dose: 10 mg Clopidogrel Bisulfate (Plavix) 75 mg PO DAILY [facility] Last Admin: 11/16/19 13:09 Dose: 75 mg Dextrose/Water (Dextrose 50%) 25 gm SLOW IVP PRN PRN PRN Reason: Hypoglycemia Famotidine (Pepcid) 20 mg SLOW IVP DAILY [facility] Last Admin: 11/16/19 13:11 Dose: 20 mg Furosemide (Lasix) 80 mg SLOW IVP 0600,1400 [facility] Last Admin: 11/16/19 05:51 Dose: 80 mg Gabapentin (Neurontin) 300 mg PO DAILY [facility] Last Admin: 11/16/19 13:11 Dose: 300 mg Glucagon (Glucagon) 1 mg IM PRN PRN PRN Reason: Hypoglycemia Guaifenesin/Dextromethorphan (Robitussin Dm) 15 ml PO Q4H PRN PRN Reason: Cough Last Admin: 11/12/19 23:09 Dose: 15 ml Hydralazine HCl (Apresoline) 50 mg PO TID [facility] Last Admin: 11/16/19 13:02 Dose: Not Given Insulin Glargine 80 units/ (Miscellaneous Medication) 0.8 mls @ 0 mls/hr SC HS [facility] Last Admin: 11/15/19 21:14 Dose: 0.8 mls Dextrose/Water (D5w) 1,000 mls @ 0 mls/hr IV .Q0M PRN PRN Reason: Hypoglycemia Insulin Human Lispro (Humalog) 0 units SC .AGGRESSIVE SLIDING PRN PRN Reason: Aggressive Correctional Scale Last Admin: 11/14/19 18:36 Dose: 3 unit Isosorbide Mononitrate (Imdur Er) 30 mg PO DAILY [facility] Last Admin: 11/16/19 13:10 Dose: 30 mg Metoprolol Tartrate (Lopressor) 100 mg PO BID [facility] Last Admin: 11/16/19 13:02 Dose: Not Given Morphine Sulfate (Morphine) 2 mg SLOW IVP BIDPRN PRN PRN Reason: Pain Last Admin: 11/16/19 09:48 Dose: 2 mg Liraglutide [Victoza (2-Ricardo] 0.6 Mg) 0 each SC DAILY [facility] Polyethylene Glycol (Miralax) 17 gm PO DAILY [facility] Last Admin: 11/16/19 13:14 Dose: 17 gm Promethazine HCl (Phenergan) 12.5 mg PO Q6H PRN PRN Reason: Nausea/Vomiting Last Admin: 11/16/19 05:51 Dose: 12.5 mg Promethazine HCl (Phenergan) 12.5 mg IM/IV Q6H PRN PRN Reason: Nausea/Vomiting Last Admin: 11/16/19 13:10 Dose: 12.5 mg Ranolazine (Ranexa) 500 mg PO BID [facility] Last Admin: 11/16/19 13:10 Dose: Not Given Sevelamer Carbonate (Renvela) 800 mg PO TID-[facility] Last Admin: 11/16/19 13:12 Dose: 800 mg Sodium Chloride (Flush - Normal Saline) 10 ml IVF Q12HR PRN PRN Reason: Saline Flush Last Admin: 11/16/19 09:49 Dose: 10 ml Sodium Chloride (Flush - Normal Saline) 10 ml IVF PRN PRN PRN Reason: Saline Flush Last Admin: 11/15/19 18:44 Dose: 10 ml Tramadol HCl (Ultram) 50 mg PO Q4H PRN PRN Reason: Moderate Pain (4-6) Last Admin: 11/16/19 13:13 Dose: 50 mg Vital Signs & Weight: Vital Signs Temp Pulse Resp BP BP Pulse Ox 11/16/19 13:07 97.5 F L 87 18 148/75 H 97 11/16/19 07:46 97.6 F 81 18 138/75 95 11/16/19 03:26 98.9 F 81 20 132/70 93 L Admit Weight 306 lb 4.8 oz Weight 294 lb 6.4 oz - Physical Exam General: alert & oriented x3 HEENT: mucus membranes moist Neck: supple neck Cardiac: regular rate and rhythm, S1/S2 Lungs: clear to auscultation Neuro: cranial nerve 2-12 intact Extremities: no edema - Labs Result Diagrams: 11/10/19 07:38 11/16/19 04:23 Troponin/CKMB CK-MB (CK-2) 3.0 ng/mL (0-6.6) 11/12/19 12:36 Troponin I 0.034 ng/mL (< 0.028) H 11/12/19 12:36 - Telemetry Sinus rhythms and dysrhythmias: sinus rhythm - Assessment/Plan Assessment/Plan: 1. CAD - no CP at this moment; s/p re-do cath in 10/2019 with residual stenosis of 50% in the LAD and RCA. Continue present therapy. On Metoprolol, ASA, Plavix , and Lipitor; not on GADIEL/ARB due to hx of CKD 2. Acute on Chronic combined HF with EF 50-55% (40-45% in 09/2019) and grade I dd - on BBlocker; Lasix was stopped on 11/12/2019 for worsened of renal function ; not on GADIEL/ARB due to hx of CKD; on HD now 3. KAY on CKD - 1st HD yesterday; 2000ml out; managed by clinical haematologist 4. HTN - stable 5. Insulin-dependent DM 6. Anemia - stableChest clear. RRR. 7. Sleep apnea 8. nausea - possible Gastroparesis. The pt may f/u with GI as outpt? 9. Depression MAR reviewed * Last Echo showed EF 50-55% (40-45% in 09/2019), grade I dd, hypokinetic lateral wall, trace MR and [place], mild TR Pt. seen and eval. by me. I agree with the A/P by the STATION EXAMINER. She had nausea during dialysis today but feels better now. She denies any chest pain. Chest clear. RRR. gjm
[2019-11-16] MEDS ORDERED: Fleet Enema 133 ML BOT PR PRN (15:25)
[2019-11-16] MEDS ORDERED: Tuberculin PPD 0.1 ML VIAL I-DERMAL SCH (17:30)
[2019-11-16] MEDS: Atorvastatin Calcium 40 MG TAB PO SCH (20:58)
[2019-11-16] MEDS: Insulin Glargine 80 UNITS in Pre-Filled Syringe 1 EACH SC SCH (21:07)
[2019-11-16] MEDS: HumaLOG 300 UNITS/3 ML VIAL SC PRN (21:09)
[2019-11-17] MEDS: traMADol HCl 50 MG TAB PO PRN ×2 (06:03→15:01)
[2019-11-17] MEDS: Furosemide 100 MG/10 ML VIAL SLOW IVP SCH ×2 (06:04→15:00)
[2019-11-17] MEDS: Promethazine HCl 25 MG/ML VIAL IM/IV PRN ×3 (06:04→18:32)
[2019-11-17 06:49] LABS: Anion Gap 13 mmol/L (10-20); BUN (Urea Nitrogen) 50 mg/dL (7.0-18.7); Calc. Creatinine Clearance 32 mL/min (70-130); Calcium 8.9 mg/dL (7.8-10.44); Carbon Dioxide 30 mmol/L (22-29); Chloride 101 mmol/L (98-107); Estimated GFR-MDRD 10; Glucose 152 mg/dL (70-105); Potassium 4.6 mmol/L (3.5-5.1); Sodium 139 mmol/L (136-145)
[2019-11-17] MEDS ORDERED: Heparin 10,000 UNITS/ 10 ML VIAL ONE (09:33)
[2019-11-17] MEDS: Sevelamer Carbonate 800 MG TAB PO SCH ×3 (12:20→17:34)
[2019-11-17] MEDS: hydrALAZINE 25 MG TAB PO SCH ×3 (12:22→20:55)
[2019-11-17] MEDS: Amlodipine 10 MG TAB PO SCH (12:48)
[2019-11-17] MEDS: Metoprolol Tartrate 100 MG TAB PO SCH ×2 (12:50→20:56)
[2019-11-17] MEDS: Gabapentin 300 MG CAP PO SCH (12:51)
[2019-11-17] MEDS: Aspirin 325 mg Enteric Coated Tablet PO SCH (12:51)
[2019-11-17] MEDS: Isosorbide Mononitrate (ER) 30 MG TAB PO SCH (12:51)
[2019-11-17] MEDS: Polyethylene Glycol 3350 17 GM Packet PO SCH (12:51)
[2019-11-17] MEDS: Clopidogrel Bisulfate 75 MG TAB PO SCH (12:52)
[2019-11-17] MEDS: Famotidine/PF 20 mg/2ml Vial SLOW IVP SCH (12:59)
--- NOTE | 2019-11-17 14:35 | PRG ---
DATE OF SERVICE: 11/17/2019 SERVICE: Nephrology. SUBJECTIVE: A 48-year-old female with known history of CKD, stage 4-5, coronary artery disease, status post recent cardiac catheterization, admitted with worsening shortness of breath and swelling. The patient was treated initially with diuretics and later was initiated on hemodialysis. Her dialysis was on November 14, 2019. Denied shortness of breath and leg swelling, still complaining of some nausea. OBJECTIVE: VITAL SIGNS: Temperature 97.9, pulse 85, respiratory rate 18, SpO2 of 97% on room air, blood pressure is 116/71. GENERAL: Obese female, in no distress. Afebrile. Anicteric. Acyanotic. HEENT: Normocephalic, atraumatic. Oral mucosa is moist. CARDIOVASCULAR: Regular rhythm and rate with normal heart sounds 1 and 2. RESPIRATORY: Fair air entry bilaterally with few transmitted breath sounds. No obvious rhonchi or use of accessory muscles appreciated. GI: Obese, soft, nontender, nondistended with normal bowel sounds. EXTREMITIES: Left BKA noted. Right lower extremity is grossly normal with no obvious edema or erythema. STEEL HEATER: Conscious, alert, oriented x3 with appropriate mental status. Cranial nerves 2 through 12 are grossly intact. DIAGNOSTIC DATA: BMP today showed sodium 139, potassium 4.6, chloride 101, CO2 , BUN 50, creatinine 4.48, glucose 152, calcium 8.9. ASSESSMENT: 1. Chronic kidney disease stage 4-5 with acute kidney injury now, end-stage renal disease, on hemodialysis. 2. Nephrotic range proteinuria. 3. Anemia in chronic kidney disease. 4. Volume overload: Improved with hemodialysis. 5. Acute on chronic heart failure: Improved with diuretics and hemodialysis. 6. Type 2 diabetes mellitus: 7. Presumed obstructive sleep apnea. 8. Obesity. PLAN: 1. We will continue with hemodialytic treatment for dialysis today. 2. We will continue current medications. 3. We will repeat renal function test and CBC in the morning. Erythrocyte stimulating agent therapy is contemplated. Further treatment to follow depending on hospital course. We will consult Case Management to help with outpatient dialysis chair placement. Job ID: [id number]
--- NOTE | 2019-11-17 15:18 | PDOC.CPN ---
- Subjective Date: 11/17/19 Time: 15:18 Interval history: The pt seen and examined. No overnight events. No cardiac complaints. - Objective Allergies/Adverse Reactions: Allergies Allergy/AdvReac Type Severity Reaction Status Date / Time codeine AdvReac Verified 11/07/19 23:00 Visit Medications: Current Medications Acetaminophen (Tylenol) 1,000 mg PO Q6H PRN PRN Reason: Moderate to Severe Pain (6-10) Amlodipine Besylate (Norvasc) 10 mg PO DAILY [facility] Last Admin: 11/17/19 12:48 Dose: 10 mg Aspirin (Ecotrin) 325 mg PO DAILY [facility] Last Admin: 11/17/19 12:51 Dose: 325 mg Atorvastatin Calcium (Lipitor) 40 mg PO HS [facility] Last Admin: 11/16/19 20:58 Dose: 40 mg Benzonatate (Tessalon) 100 mg PO TIDPRN PRN PRN Reason: Cough Last Admin: 11/16/19 04:01 Dose: 100 mg Clopidogrel Bisulfate (Plavix) 75 mg PO DAILY [facility] Last Admin: 11/17/19 12:52 Dose: 75 mg Dextrose/Water (Dextrose 50%) 25 gm SLOW IVP PRN PRN PRN Reason: Hypoglycemia Famotidine (Pepcid) 20 mg SLOW IVP DAILY [facility] Last Admin: 11/17/19 12:59 Dose: 20 mg Furosemide (Lasix) 80 mg SLOW IVP 0600,1400 [facility] Last Admin: 11/17/19 15:00 Dose: 80 mg Gabapentin (Neurontin) 300 mg PO DAILY [facility] Last Admin: 11/17/19 12:51 Dose: 300 mg Glucagon (Glucagon) 1 mg IM PRN PRN PRN Reason: Hypoglycemia Guaifenesin/Dextromethorphan (Robitussin Dm) 15 ml PO Q4H PRN PRN Reason: Cough Last Admin: 11/12/19 23:09 Dose: 15 ml Hydralazine HCl (Apresoline) 50 mg PO TID [facility] Last Admin: 11/17/19 15:00 Dose: 50 mg Insulin Glargine 80 units/ (Miscellaneous Medication) 0.8 mls @ 0 mls/hr SC HS [facility] Last Admin: 11/16/19 21:07 Dose: Not Given Dextrose/Water (D5w) 1,000 mls @ 0 mls/hr IV .Q0M PRN PRN Reason: Hypoglycemia Insulin Human Lispro (Humalog) 0 units SC .AGGRESSIVE SLIDING PRN PRN Reason: Aggressive Correctional Scale Last Admin: 11/16/19 21:09 Dose: 3 unit Isosorbide Mononitrate (Imdur Er) 30 mg PO DAILY [facility] Last Admin: 11/17/19 12:51 Dose: 30 mg Metoprolol Tartrate (Lopressor) 100 mg PO BID [facility] Last Admin: 11/17/19 12:50 Dose: Not Given Morphine Sulfate (Morphine) 2 mg SLOW IVP BIDPRN PRN PRN Reason: Pain Last Admin: 11/16/19 20:57 Dose: 2 mg Read Ppd Test Site 0 each PO ONE [facility] Stop: 11/19/19 23:59 Liraglutide [Victoza (2-Ricardo] 0.6 Mg) 0 each SC DAILY [facility] Polyethylene Glycol (Miralax) 17 gm PO DAILY [facility] Last Admin: 11/17/19 12:51 Dose: 17 gm Promethazine HCl (Phenergan) 12.5 mg PO Q6H PRN PRN Reason: Nausea/Vomiting Last Admin: 11/16/19 05:51 Dose: 12.5 mg Promethazine HCl (Phenergan) 12.5 mg IM/IV Q6H PRN PRN Reason: Nausea/Vomiting Last Admin: 11/17/19 11:43 Dose: 12.5 mg Ranolazine (Ranexa) 500 mg PO BID [facility] Last Admin: 11/17/19 12:23 Dose: Not Given Sevelamer Carbonate (Renvela) 800 mg PO TID-[facility] Last Admin: 11/17/19 12:51 Dose: 800 mg Sodium Chloride (Flush - Normal Saline) 10 ml IVF Q12HR PRN PRN Reason: Saline Flush Last Admin: 11/16/19 09:49 Dose: 10 ml Sodium Chloride (Flush - Normal Saline) 10 ml IVF PRN PRN PRN Reason: Saline Flush Last Admin: 11/17/19 15:04 Dose: 10 ml Tramadol HCl (Ultram) 50 mg PO Q4H PRN PRN Reason: Moderate Pain (4-6) Last Admin: 11/17/19 15:01 Dose: 50 mg Vital Signs & Weight: Vital Signs Temp Pulse Resp BP BP BP Pulse Ox 11/17/19 15:00 94 162/80 H 11/17/19 12:48 88 149/66 H 11/17/19 11:40 97.9 F 85 18 116/71 97 11/17/19 07:30 97.8 F 82 18 122/64 94 L 11/17/19 04:00 98.7 F 80 18 124/60 94 L Admit Weight 306 lb 4.8 oz Weight 290 lb 7 oz - Physical Exam General: alert & oriented x3 HEENT: mucus membranes moist Neck: supple neck Cardiac: regular rate and rhythm, S1/S2 Lungs: clear to auscultation, decreased breath sounds Neuro: cranial nerve 2-12 intact Extremities: no edema - Labs Result Diagrams: 11/10/19 07:38 11/17/19 04:19 Troponin/CKMB CK-MB (CK-2) 3.0 ng/mL (0-6.6) 11/12/19 12:36 Troponin I 0.034 ng/mL (< 0.028) H 11/12/19 12:36 - Telemetry Sinus rhythms and dysrhythmias: sinus rhythm - Assessment/Plan Assessment/Plan: 1. CAD - no CP at this moment; s/p re-do cath in 10/2019 with residual stenosis of 50% in the LAD and RCA. Continue present therapy. On Metoprolol, ASA, Plavix , and Lipitor; not on GADIEL/ARB due to hx of CKD 2. Acute on Chronic combined HF with EF 50-55% (40-45% in 09/2019) and grade I dd - on BBlocker; Lasix was stopped on 11/12/2019 for worsened of renal function ; not on GADIEL/ARB due to hx of CKD; on HD now 3. KAY on CKD - plan for AV fistula placement tomorrow; managed by relay shop supervisor 4. HTN - stable 5. Insulin-dependent DM 6. Anemia - will recheck tomorrow 7. Sleep apnea 8. nausea - possible Gastroparesis. The pt may f/u with GI as outpt? 9. Depression MAR reviewed * Last Echo showed EF 50-55% (40-45% in 09/2019), grade I dd, hypokinetic lateral wall, trace MR and [place], mild TR
[2019-11-17] MEDS: HumaLOG 300 UNITS/3 ML VIAL SC PRN (17:34)
[2019-11-17] MEDS: Morphine 2 MG/ML SYRINGE SLOW IVP PRN (18:33)
[2019-11-17] MEDS: Atorvastatin Calcium 40 MG TAB PO SCH (20:56)
[2019-11-17] MEDS: Insulin Glargine 80 UNITS in Pre-Filled Syringe 1 EACH SC SCH (22:38)
[2019-11-18] MEDS: Furosemide 100 MG/10 ML VIAL SLOW IVP SCH ×2 (01:52→14:02)
[2019-11-18 04:12] LABS: #Eosinphils 0.7 thou/uL (0.0-0.7); #Lymphocytes 2.7 thou/uL (1.20-3.40); #Monocytes 0.8 thou/uL (0.11-0.59); #Neutrophils 4.8 thou/uL (1.40-6.50); %Basophils 0.5 % (0.0-1.0); %Eosinophils 7.8 % (0.0-10.0); %Monocytes 8.7 % (0.0-10.0); Hemoglobin 10.6 g/dL (12.0-16.0); Mean Corpuscular HGB CONC 32.9 g/dL (32.0-36.0); Mean Platelet Volume 8.2 fL (7.4-10.4); Platelet Count 183 thou/uL (130-400); RBC Distribution Width 12.7 % (11.5-14.5); Red Blood Cell (RBC) Count 3.44 mill/uL (4.20-5.40)
[2019-11-18 04:34] LABS: Anion Gap 13 mmol/L (10-20); BUN (Urea Nitrogen) 42 mg/dL (7.0-18.7); Calc. Creatinine Clearance 32 mL/min (70-130); Calcium 9.2 mg/dL (7.8-10.44); Carbon Dioxide 31 mmol/L (22-29); Chloride 101 mmol/L (98-107); Estimated GFR-MDRD 11; Glucose 183 mg/dL (70-105); Potassium 4.3 mmol/L (3.5-5.1); Sodium 141 mmol/L (136-145)
[2019-11-18] MEDS: Promethazine HCl 25 MG/ML VIAL IM/IV PRN ×2 (07:51→20:07)
[2019-11-18] MEDS: Famotidine/PF 20 mg/2ml Vial SLOW IVP SCH (07:51)
[2019-11-18] MEDS: Gabapentin 300 MG CAP PO SCH (07:51)
[2019-11-18] MEDS: Metoprolol Tartrate 100 MG TAB PO SCH ×2 (07:51→20:03)
[2019-11-18] MEDS: Morphine 2 MG/ML SYRINGE SLOW IVP PRN ×2 (07:52→20:04)
[2019-11-18] MEDS: Isosorbide Mononitrate (ER) 30 MG TAB PO SCH (07:52)
[2019-11-18] MEDS: Polyethylene Glycol 3350 17 GM Packet PO SCH (07:57)
[2019-11-18] MEDS: Sevelamer Carbonate 800 MG TAB PO SCH ×3 (07:57→15:57)
[2019-11-18] MEDS: hydrALAZINE 25 MG TAB PO SCH ×3 (07:57→20:03)
[2019-11-18] MEDS: Aspirin 325 mg Enteric Coated Tablet PO SCH (07:57)
[2019-11-18] MEDS: Clopidogrel Bisulfate 75 MG TAB PO SCH (07:57)
[2019-11-18] MEDS: Amlodipine 10 MG TAB PO SCH ×2 (07:58→14:03)
[2019-11-18] MEDS ORDERED: Fentanyl 100 MCG/2 ML VIAL ONE ×2 (08:48→09:41)
--- NOTE | 2019-11-18 08:59 | PRG ---
DATE OF SERVICE: 11/18/2019 SERVICE: Nephrology. SUBJECTIVE: A 48-year-old female with CKD stage 4/5, admitted with worsening edema and shortness of breath. The patient felt diuretic therapy was subsequently initiated on hemodialysis. No new problem. Continued to complain of some nausea, but denied vomiting. Last hemodialysis was yesterday. Scheduled for AV fistula creation today. OBJECTIVE: VITAL SIGNS: Temperature 97.7, pulse 100, respiratory rate 18, SpO2 of 95% on room air, blood pressure is 150/88. GENERAL: Obese female, in no distress. Afebrile. Anicteric. Acyanotic. HEENT: Normocephalic and atraumatic. Oral mucosa is moist. CARDIOVASCULAR: Regular rhythm and rate with normal heart sounds one and two. RESPIRATORY: Fair air entry bilaterally with few transmitted breath sounds. No obvious crackle or rhonchi or use of accessory muscles appreciated. GI: Obese, soft, nontender, nondistended with normal bowel sounds. EXTREMITIES: Left BKA noted. Other extremities are unremarkable with no edema or erythema. FELT CEMENTER: Conscious, alert and oriented x3 with appropriate mental status. Cranial nerves 2 through 12 are grossly intact. DIAGNOSTIC DATA: CBC showed WBC count of 9.0, hemoglobin of 10.6, MCV of 94.0, and platelets of 183. BMP showed sodium 141, potassium 4.3, chloride 101, CO2 of 31, BUN 42, creatinine 4.46, glucose 183, calcium 9.2. ASSESSMENT: 1. Acute on chronic renal failure, now end-stage renal disease, on hemodialysis. Last hemodialysis was yesterday. Volume status: Euvolemic. 2. Electrolytes: Acceptable. 3. Acid-base: Acceptable. 4. Hypertension: Control is acceptable, but suboptimal. PLAN: We will proceed with AV fistula creation as planned. We will recheck renal function tests and CBC in the morning. Given that electrolyte, acid-base, and volume status are acceptable, there is no need for dialysis today. We will plan on dialyzing the patient tomorrow morning. Further treatment to follow depending on hospital course. Job ID: [id number]
[2019-11-18] MEDS ORDERED: READ PPD TEST SITE PO SCH (09:00)
[2019-11-18] MEDS ORDERED: Propofol 500 MG/50 ML VIAL ONE (09:41)
[2019-11-18] MEDS ORDERED: Bupivacaine PF 0.5% 30 ML VIAL ONE (09:43)
[2019-11-18] MEDS ORDERED: Heparin 5,000 UNITS/ML VIAL ONE (09:43)
[2019-11-18] MEDS ORDERED: Lidocaine 1% w/Epinephrine 1:100K 20 ML VIAL ONE (09:43)
[2019-11-18] MEDS ORDERED: Protamine Sulfate 50 MG/5 ML VIAL ONE (09:43)
[2019-11-18] MEDS ORDERED: PROPOFOL 200 MG/20 ML VIAL ONE (09:59)
[2019-11-18] MEDS ORDERED: Bupivacaine HCl 0.5%/Epinephrine 1:200,000/PF 30 ml Vial ONE (09:59)
[2019-11-18] MEDS ORDERED: PHENYLEPHRINE-NS 100 MCG/ML 10 ML SYRINGE ONE (09:59)
--- NOTE | 2019-11-18 10:52 | PRG ---
DATE OF SERVICE: 11/17/2019 SUBJECTIVE: The patient is seen and examined, complaining of abdominal discomfort during dialysis. OBJECTIVE: VITAL SIGNS: Noted with the following vital signs. Afebrile, temperature 98.7, pulse 80, respiratory rate of 18, O2 saturation of 94%, blood pressure 124/60. HEENT: Unremarkable. CARDIOVASCULAR: First and second heart sounds were heard. RESPIRATORY: Clear to auscultation. DIGESTIVE: Revealed a benign abdomen with positive bowel sounds. EXTREMITIES: No peripheral edema. SKIN: No new gross rash. LYMPHATICS: No peripheral lymphadenopathy. LABORATORY INVESTIGATION: Showed a creatinine of 4.42, BUN of 57. IMPRESSION: 1. Advanced chronic kidney disease, stage 5 . 2. Hypervolemia, undergoing dialysis with ultrafiltration. 3. Cardiomyopathy. PLAN: 1. We will continue with gradually increasing daily dialysis until achieve optimum dialysis at which point we will set up intermittent dialysis. 2. sales consultant residential manager consult placed, working on the outpatient placement. 3. Further management to be dependent on the clinical course. 4. Discontinue all . Job ID: [id number]
[2019-11-18] MEDS ORDERED: Promethazine HCl 25 MG/ML VIAL IM PRN (11:31)
[2019-11-18] MEDS ORDERED: Ondansetron HCl/PF 4 MG/2 ML Vial IVP PRN (11:31)
[2019-11-18] MEDS ORDERED: PACU-Morphine 4MG/ML VIAL SLOW IVP PRN (11:31)
[2019-11-18] MEDS ORDERED: Promethazine HCl 25 MG/ML VIAL SLOW IVP PRN (11:31)
[2019-11-18] MEDS ORDERED: Ondansetron PF 4 MG/2 ML Vial ONE (11:58)
[2019-11-18] MEDS ORDERED: Promethazine HCl 25 MG/ML VIAL ONE (12:00)
--- NOTE | 2019-11-18 14:45 | PDOC.HOSPP ---
- Subjective Encounter Date: 11/17/19 Encounter Time: 10:15 Subjective: pt up in bed no nausea and feels well. - Objective Vital Signs & Weight: Vital Signs (12 hours) Temp Pulse Resp BP BP Pulse Ox 11/18/19 14:03 81 11/18/19 14:02 81 11/18/19 12:30 96.5 F L 81 17 143/80 H 95 11/18/19 08:00 97.9 F 95 17 151/79 H 97 11/18/19 07:58 100 11/18/19 07:57 100 11/18/19 03:27 97.7 F 100 18 150/88 H 95 Weight Admit Weight 306 lb 4.8 oz Weight 290 lb 7 oz I&O: 11/17/19 11/18/19 11/19/19 06:59 06:59 06:59 Intake Total 1335 1180 Output Total 1800 575 Balance -465 605 Result Diagrams: 11/18/19 03:22 11/18/19 03:22 Additional Labs: Accuchecks 11/18/19 11/18/19 11/17/19 12:38 06:32 21:14 POC Glucose 143 H 187 H 248 H 11/17/19 16:26 POC Glucose 177 H Hospitalist ROS - Review of Systems Respiratory: denies: cough, dry, shortness of breath, hemoptysis, SOB with excertion, pleuritic pain, sputum, wheezing, other Cardiovascular: denies: chest pain, palpitations, orthopnea, paroxysmal noc. dyspnea, edema, light headedness, other Gastrointestinal: reports: nausea Genitourinary: denies: dysuria, frequency, incontinence, hematuria, retention, other Musculoskeletal: denies: neck pain, shoulder pain, arm pain, back pain, hand pain, leg pain, foot pain, other - Medication Medications: Active Medications Generic Name Dose Route Start Last Admin Trade Name Freq PRN Reason Stop Dose Admin Amlodipine Besylate 10 mg 11/12/19 09:00 11/18/19 14:03 Norvasc PO 10 mg DAILY [facility] Administration Aspirin 325 mg 11/08/19 09:00 11/18/19 07:57 Ecotrin PO Not Given DAILY [facility] Atorvastatin Calcium 40 mg 11/08/19 21:00 11/17/19 20:56 Lipitor PO 40 mg HS [facility] Administration Benzonatate 100 mg 11/11/19 23:53 11/16/19 04:01 Tessalon PO 100 mg TIDPRN PRN Administration Cough Clopidogrel Bisulfate 75 mg 11/08/19 09:00 11/18/19 07:57 Plavix PO Not Given DAILY [facility] Famotidine 20 mg 11/08/19 09:00 11/18/19 07:51 Pepcid SLOW IVP 20 mg DAILY [facility] Administration Furosemide 80 mg 11/16/19 06:00 11/18/19 14:02 Lasix SLOW IVP 80 mg 0600,1400 [facility] Administration Gabapentin 300 mg 11/08/19 09:00 11/18/19 07:51 Neurontin PO 300 mg DAILY [facility] Administration Guaifenesin/Dextromethorphan 15 ml 11/08/19 06:48 11/12/19 23:09 Robitussin Dm PO 15 ml Q4H PRN Administration Cough Hydralazine HCl 50 mg 11/09/19 15:00 11/18/19 14:02 Apresoline PO 50 mg TID [facility] Administration Insulin Glargine 80 units/ 0.8 mls @ 0 mls/hr 11/08/19 21:00 11/17/19 22:38 Miscellaneous Medication SC 0.8 mls HS [facility] Administration Insulin Human Lispro 0 units 11/10/19 10:10 11/17/19 17:34 Humalog SC 3 unit .AGGRESSIVE SLIDING PRN Administration Aggressive Correctional Scale Isosorbide Mononitrate 30 mg 11/11/19 09:00 11/18/19 07:52 Imdur Er PO 30 mg DAILY [facility] Administration Metoprolol Tartrate 100 mg 11/08/19 09:00 11/18/19 07:51 Lopressor PO 100 mg BID [facility] Administration Morphine Sulfate 2 mg 11/15/19 18:03 11/18/19 07:52 Morphine SLOW IVP 2 mg BIDPRN PRN Administration Pain Polyethylene Glycol 17 gm 11/15/19 09:00 11/18/19 07:57 Miralax PO Not Given DAILY [facility] Promethazine HCl 12.5 mg 11/13/19 16:09 11/16/19 05:51 Phenergan PO 12.5 mg Q6H PRN Administration Nausea/Vomiting Promethazine HCl 12.5 mg 11/16/19 11:07 11/18/19 07:51 Phenergan IM/IV 12.5 mg Q6H PRN Administration Nausea/Vomiting Ranolazine 500 mg 11/08/19 09:00 11/18/19 07:58 Ranexa PO Not Given BID [facility] Sevelamer Carbonate 800 mg 11/08/19 08:00 11/18/19 14:00 Renvela PO Not Given TID-WM [facility] Sodium Chloride 10 ml 11/07/19 21:27 11/16/19 09:49 Flush - Normal Saline IVF 10 ml Q12HR PRN Administration Saline Flush Sodium Chloride 10 ml 11/07/19 21:27 11/17/19 15:04 Flush - Normal Saline IVF 10 ml PRN PRN Administration Saline Flush Tramadol HCl 50 mg 11/15/19 11:44 11/17/19 15:01 Ultram PO 50 mg Q4H PRN Administration Moderate Pain (4-6) - Exam Neck: negative: supple, symmetric, no JVD, no thyromegaly, no lymphadenopathy, no carotid bruit, JVD Heart: negative: RRR, no murmur, no gallops, no rubs, normal peripheral pulses, irregular, diminshed peripheral pulses, murmur present, II/IV, III/IV Respiratory: negative: CTAB, no wheezes, no rales, no ronchi, normal chest expansion, no tachypnea, normal percussion, rales, rhonchi, tachypneic, wheezes Gastrointestinal: negative: soft, non-tender, non-distended, normal bowel sounds , no palpable masses, no hepatomegaly, no splenomegaly, no bruit, no guarding, no rigidity, tender to palpation, distended, diminished bowl sounds, voluntary guarding Hosp A/P - Plan (1) Acute on chronic combined systolic (congestive) and diastolic (congestive) heart failure Code(s): I50.43 - ACUTE ON CHRONIC COMBINED SYSTOLIC AND DIASTOLIC HRT FAIL Status: Acute (2) Acute worsening of stage 4 chronic kidney disease Code(s): N18.4 - CHRONIC KIDNEY DISEASE, STAGE 4 (SEVERE) Status: Acute (3) CAD (coronary artery disease) Code(s): I25.10 - ATHSCL HEART DISEASE OF [place] CORONARY ARTERY W/O ANG PCTRS Status: Chronic (4) Diabetes mellitus type II, uncontrolled Code(s): E11.65 - TYPE 2 DIABETES MELLITUS WITH HYPERGLYCEMIA Status: Chronic (5) HTN (hypertension) Code(s): I10 - ESSENTIAL (PRIMARY) HYPERTENSION Status: Chronic Qualifiers: Hypertension type: essential hypertension Qualified Code(s): I10 - Essential (primary) hypertension (6) Anemia of chronic disease Code(s): D63.8 - ANEMIA IN OTHER CHRONIC DISEASES CLASSIFIED ELSEWHERE Status : Acute - Plan Creatinine stabilized at 4.5, Dr. Faria following, Lasix on hold since 11/12 Diuresed well, stopped Lasix, strict Is and Os Dr. Elda bond for Cards GI f/u outpatient for chronic nausea 11/15 pt had her tunnel cath placed. dialysis per nephro. pt started her dialysis. will need dialysis set up. she has had chronic nausea. will see if she tolerates reglan. 11/16 pt has no more nausea, will monitor. she had her ppd placed and will need dialysis to be set up.
--- NOTE | 2019-11-18 15:41 | PDOC.CPN ---
- Subjective Date: 11/18/19 Time: 15:42 Interval history: The pt seen and examined. No overnight events. No cardiac complaints. - Objective Allergies/Adverse Reactions: Allergies Allergy/AdvReac Type Severity Reaction Status Date / Time codeine AdvReac Verified 11/07/19 23:00 Visit Medications: Current Medications Acetaminophen (Tylenol) 1,000 mg PO Q6H PRN PRN Reason: Moderate to Severe Pain (6-10) Amlodipine Besylate (Norvasc) 10 mg PO DAILY [facility] Last Admin: 11/18/19 14:03 Dose: 10 mg Aspirin (Ecotrin) 325 mg PO DAILY [facility] Last Admin: 11/18/19 07:57 Dose: Not Given Atorvastatin Calcium (Lipitor) 40 mg PO HS [facility] Last Admin: 11/17/19 20:56 Dose: 40 mg Benzonatate (Tessalon) 100 mg PO TIDPRN PRN PRN Reason: Cough Last Admin: 11/16/19 04:01 Dose: 100 mg Clopidogrel Bisulfate (Plavix) 75 mg PO DAILY [facility] Last Admin: 11/18/19 07:57 Dose: Not Given Dextrose/Water (Dextrose 50%) 25 gm SLOW IVP PRN PRN PRN Reason: Hypoglycemia Famotidine (Pepcid) 20 mg SLOW IVP DAILY [facility] Last Admin: 11/18/19 07:51 Dose: 20 mg Furosemide (Lasix) 80 mg SLOW IVP 0600,1400 [facility] Last Admin: 11/18/19 14:02 Dose: 80 mg Gabapentin (Neurontin) 300 mg PO DAILY [facility] Last Admin: 11/18/19 07:51 Dose: 300 mg Glucagon (Glucagon) 1 mg IM PRN PRN PRN Reason: Hypoglycemia Guaifenesin/Dextromethorphan (Robitussin Dm) 15 ml PO Q4H PRN PRN Reason: Cough Last Admin: 11/12/19 23:09 Dose: 15 ml Hydralazine HCl (Apresoline) 50 mg PO TID [facility] Last Admin: 11/18/19 14:02 Dose: 50 mg Insulin Glargine 80 units/ (Miscellaneous Medication) 0.8 mls @ 0 mls/hr SC HS [facility] Last Admin: 11/17/19 22:38 Dose: 0.8 mls Dextrose/Water (D5w) 1,000 mls @ 0 mls/hr IV .Q0M PRN PRN Reason: Hypoglycemia Insulin Human Lispro (Humalog) 0 units SC .AGGRESSIVE SLIDING PRN PRN Reason: Aggressive Correctional Scale Last Admin: 11/17/19 17:34 Dose: 3 unit Isosorbide Mononitrate (Imdur Er) 30 mg PO DAILY [facility] Last Admin: 11/18/19 07:52 Dose: 30 mg Metoprolol Tartrate (Lopressor) 100 mg PO BID [facility] Last Admin: 11/18/19 07:51 Dose: 100 mg Morphine Sulfate (Morphine) 2 mg SLOW IVP BIDPRN PRN PRN Reason: Pain Last Admin: 11/18/19 07:52 Dose: 2 mg Read Ppd Test Site 0 each PO ONE [facility] Stop: 11/19/19 23:59 Liraglutide [Victoza (2-Ricardo] 0.6 Mg) 0 each SC DAILY [facility] Polyethylene Glycol (Miralax) 17 gm PO DAILY [facility] Last Admin: 11/18/19 07:57 Dose: Not Given Promethazine HCl (Phenergan) 12.5 mg PO Q6H PRN PRN Reason: Nausea/Vomiting Last Admin: 11/16/19 05:51 Dose: 12.5 mg Promethazine HCl (Phenergan) 12.5 mg IM/IV Q6H PRN PRN Reason: Nausea/Vomiting Last Admin: 11/18/19 07:51 Dose: 12.5 mg Ranolazine (Ranexa) 500 mg PO BID [facility] Last Admin: 11/18/19 07:58 Dose: Not Given Sevelamer Carbonate (Renvela) 800 mg PO TID-[facility] Last Admin: 11/18/19 14:00 Dose: Not Given Sodium Chloride (Flush - Normal Saline) 10 ml IVF Q12HR PRN PRN Reason: Saline Flush Last Admin: 11/16/19 09:49 Dose: 10 ml Sodium Chloride (Flush - Normal Saline) 10 ml IVF PRN PRN PRN Reason: Saline Flush Last Admin: 11/17/19 15:04 Dose: 10 ml Tramadol HCl (Ultram) 50 mg PO Q4H PRN PRN Reason: Moderate Pain (4-6) Last Admin: 11/17/19 15:01 Dose: 50 mg Vital Signs & Weight: Vital Signs Temp Pulse Resp BP BP Pulse Ox 11/18/19 14:03 81 11/18/19 14:02 81 11/18/19 12:30 96.5 F L 81 17 143/80 H 95 11/18/19 08:00 97.9 F 95 17 151/79 H 97 11/18/19 07:58 100 11/18/19 07:57 100 Admit Weight 306 lb 4.8 oz Weight 290 lb 7 oz - Physical Exam General: alert & oriented x3 HEENT: mucus membranes moist Neck: supple neck Cardiac: regular rate and rhythm, S1/S2 Lungs: decreased breath sounds - Labs Result Diagrams: 11/18/19 03:22 11/18/19 03:22 Troponin/CKMB CK-MB (CK-2) 3.0 ng/mL (0-6.6) 11/12/19 12:36 Troponin I 0.034 ng/mL (< 0.028) H 11/12/19 12:36 - Telemetry Sinus rhythms and dysrhythmias: sinus rhythm - Assessment/Plan Assessment/Plan: 1. CAD - no CP at this moment; s/p re-do cath in 10/2019 with residual stenosis of 50% in the LAD and RCA. Continue present therapy. On Metoprolol, ASA, Plavix , and Lipitor; not on GADIEL/ARB due to hx of CKD 2. Acute on Chronic combined HF with EF 50-55% (40-45% in 09/2019) and grade I dd - on BBlocker; Lasix was stopped on 11/12/2019 for worsened of renal function ; not on GADIEL/ARB due to hx of CKD; on HD now 3. KAY on CKD - s/p AV fistula placement; managed by appliance service technician 4. HTN - stable 5. Insulin-dependent DM 6. Anemia - unchanged 7. Sleep apnea 8. nausea - possible Gastroparesis. The pt may f/u with GI as outpt? 9. Depression MAR reviewed * Last Echo showed EF 50-55% (40-45% in 09/2019), grade I dd, hypokinetic lateral wall, trace MR and WA, mild TR Pt. seen and eval. by me. I agree with the A/P by the TALENT ACQUISITION CONSULTANT. Chest clear. RRR. Left arm fistula placed last week.
[2019-11-18] MEDS: Atorvastatin Calcium 40 MG TAB PO SCH (20:03)
[2019-11-18] MEDS: HumaLOG 300 UNITS/3 ML VIAL SC PRN (21:37)
[2019-11-18] MEDS: Insulin Glargine 80 UNITS in Pre-Filled Syringe 1 EACH SC SCH (21:41)
[2019-11-19] MEDS: Morphine 2 MG/ML SYRINGE SLOW IVP PRN ×2 (06:30→12:48)
[2019-11-19] MEDS: Furosemide 100 MG/10 ML VIAL SLOW IVP SCH ×2 (06:31→14:46)
[2019-11-19] MEDS ORDERED: Promethazine HCl 12.5 MG in Sodium Chloride 0.9% 50 ML IVPB PRN (06:34)
[2019-11-19] MEDS: Promethazine HCl 25 MG/ML VIAL IM/IV PRN ×3 (06:49→21:13)
[2019-11-19] MEDS ORDERED: Heparin 10,000 UNITS/ 10 ML VIAL ONE (09:38)
--- NOTE | 2019-11-19 09:52 | PRG ---
DATE OF SERVICE: 11/19/2019 SERVICE: Nephrology. SUBJECTIVE: A 48-year-old female with known history of CKD stage 4/5, admitted due to worsening generalized swelling associated with shortness of breath. The patient failed diuretics and was subsequently started on hemodialysis. Feeling a lot better. Had left upper limb AV fistula creation yesterday. Complains of left upper extremity swelling and pain associated with insomnia. Denied vomiting or fever. OBJECTIVE: VITAL SIGNS: Temperature 98.4, pulse 89, respiratory rate 14, SpO2 of 94% on room air, and blood pressure is 141/68. GENERAL: Obese female, in no obvious distress. Afebrile. Anicteric. Acyanotic. HEENT: Normocephalic, atraumatic. Oral mucosa is moist. CARDIOVASCULAR: Regular rhythm and rate with normal heart sounds 1 and 2. RESPIRATORY: Fair air entry bilaterally with no obvious crackle or rhonchi or use of accessory muscles. GI: Obese, soft, nontender, nondistended with normal bowel sounds. EXTREMITIES: Global edema of left upper extremity noted with surgical wound on the wrist and cubital fossa. Left BKA noted. Other extremities are grossly unremarkable with no edema or erythema. INSTRUMENT TECH: Conscious, alert, and oriented x3 with appropriate mental status. Cranial nerves 2 through 12 are grossly intact. DIAGNOSTIC DATA: No blood drawn this morning as yet. ASSESSMENT: 1. Marked anasarca with respiratory distress: Due to nephrotic-range proteinuria and fluid overload. Failed diuretics and was subsequently started on hemodialysis with ultrafiltration with improvement. 2. Acute on chronic heart failure. Improved with diuretics and dialysis. 3. Chronic kidney disease, stage 5, now on hemodialysis. 4. Nephrotic-range proteinuria. 5. Morbid obesity. 6. Hypertension: Control is acceptable. PLAN: 1. We will get repeat renal function test today. We will also dialyze the patient with UF as tolerated. 2. The patient can be discharged from Nephrology point of view once outpatient dialysis chair is arranged. Further treatment to follow depending on hospital course. Job ID: [id number]
--- NOTE | 2019-11-19 09:58 | OP ---
DATE OF PROCEDURE: 11/18/2019 PREOPERATIVE DIAGNOSES: Morbid obesity, end-stage renal disease, in need of dialysis access, thrombosed right antecubital iatrogenic due to IV access and blood draws this hospitalization in a chronic kidney disease end-stage renal disease patient. POSTOPERATIVE DIAGNOSES: Morbid obesity, end-stage renal disease, in need of dialysis access, thrombosed right antecubital iatrogenic due to IV access and blood draws this hospitalization in a chronic kidney disease end-stage renal disease patient with better vein and expected left antecubital despite vein mapping suggesting the suboptimal. PROCEDURE PERFORMED: Left arm primary fistula, perforating branch antecubital vein to the ulnar artery. Note, radial artery was very small in caliber. Coronary dilators to a 3.5 mm outflow to cephalic vein. No communication in basilic vein noted. Retrograde and antecubital vein forearm preserved. ANESTHESIA: Regional, TIVA. DESCRIPTION OF PROCEDURE: The patient was taken to the operating room, where under regional anesthesia and TIVA anesthesia, left upper extremity was prepared with ChloraPrep and draped in routine fashion. An incision was made in the left antecubital fossa below in the proximal forearm longitudinally, carried down to the skin and subcutaneous tissue and contrary to vein mapping. She had an excellent cephalic vein forearm and cephalic vein upper arm. There was a large perforating branch dissected free, dividing branches between 4-0 silk ties and clips after the patient given 6000 units of heparin intravenously. Radial artery was searched for very small in caliber. Distal ulnar artery was dissected free with excellent caliber and dissected free enough to perform the anastomosis. The cephalic vein forearm was so good in appearance. Then, an incision was made in the left wrist, finding this vein to be inadequate or non-existent and this wound was approximated by approximating subcutaneous tissues with 3-0 Monocryl, skin with subdermal 4-0 Monocryl, and [place] glue applied. Brachial small radial and ulnar artery clamped proximally and distally, and a longitudinal arteriotomy was made in the proximal ulnar artery, which was very large, and the perforating branch of antecubital vein spatulated over branch point, interrogated with coronary dilators and anastomosed to the ulnar artery with continuous suture of 6-0 Prolene. At the end of the procedure, there was a good Doppler signal in the outflow. The patient had enough antecubital/cephalic vein forearm, that this could be anastomosed to the brachial artery should this fail. The patient tolerated the procedure well. Good hemostasis noted. The patient was given 25 mg of protamine by Anesthesia. Subcutaneous tissue was approximated with 3-0 Monocryl, skin with subdermal 4-0 Monocryl, and [place] glue applied. Job ID: [id number]
[2019-11-19 10:28] LABS: Albumin 3.3 g/dL (3.5-5.0); Anion Gap 13 mmol/L (10-20); BUN (Urea Nitrogen) 56 mg/dL (7.0-18.7); BUN/Creatinine Ratio 10.81; Calc. Creatinine Clearance 28 mL/min (70-130); Calcium 8.9 mg/dL (7.8-10.44); Carbon Dioxide 26 mmol/L (22-29); Chloride 99 mmol/L (98-107); Estimated GFR-MDRD 9; Glucose 252 mg/dL (70-105); Phosphorus 5.3 mg/dL (2.3-4.7); Potassium 4.4 mmol/L (3.5-5.1); Sodium 134 mmol/L (136-145)
--- NOTE | 2019-11-19 10:55 | PRG ---
DATE OF SERVICE: 11/19/2019 Damaris Wilkes is doing well after left arm fistula yesterday. Ultrasound vein mapping suggested poor veins; however, exploration of the proximal volar forearm on the left revealed an excellent size vein. She has primary outflow through the cephalic vein without communication to the basilic vein. The radial artery was too small and inflow was through the ulnar artery, outflow primarily the cephalic vein via a perforating branch that was very large. It was calibrated to 4 mm coronary dilator. Retrograde antecubital forearm vein preserved. This morning, her left hand function is good. She is not having any pain. She has edema in her forearm hand as expected. She was reassured that should improve with time. At this point, she should exercise her arm and use her arm without restriction. She should follow up in my office in 3 to 4 weeks. I will see her as needed in this hospitalization. Please call if necessary. Job ID: [id number]
[2019-11-19] MEDS: Sevelamer Carbonate 800 MG TAB PO SCH ×2 (12:11→17:12)
[2019-11-19] MEDS: hydrALAZINE 25 MG TAB PO SCH ×3 (12:14→20:59)
[2019-11-19] MEDS: Metoprolol Tartrate 100 MG TAB PO SCH ×2 (12:14→20:59)
[2019-11-19] MEDS: Famotidine/PF 20 mg/2ml Vial SLOW IVP SCH (14:45)
[2019-11-19] MEDS: Clopidogrel Bisulfate 75 MG TAB PO SCH (14:47)
[2019-11-19] MEDS: Gabapentin 300 MG CAP PO SCH (14:47)
[2019-11-19] MEDS: Amlodipine 10 MG TAB PO SCH (14:48)
[2019-11-19] MEDS: Isosorbide Mononitrate (ER) 30 MG TAB PO SCH (14:48)
[2019-11-19] MEDS: Aspirin 325 mg Enteric Coated Tablet PO SCH (14:49)
--- NOTE | 2019-11-19 15:36 | PDOC.CPN ---
- Subjective Date: 11/19/19 Time: 15:38 Interval history: The pt seen and examined. No overnight events. No cardiac complaints. She complains of pain to Lt hand and the surgical site - Objective Allergies/Adverse Reactions: Allergies Allergy/AdvReac Type Severity Reaction Status Date / Time ricky AdvReac Verified 11/07/19 23:00 Visit Medications: Current Medications Acetaminophen (Tylenol) 1,000 mg PO Q6H PRN PRN Reason: Moderate to Severe Pain (6-10) Amlodipine Besylate (Norvasc) 10 mg PO DAILY [facility] Last Admin: 11/19/19 14:48 Dose: 10 mg Aspirin (Ecotrin) 325 mg PO DAILY [facility] Last Admin: 11/19/19 14:49 Dose: 325 mg Atorvastatin Calcium (Lipitor) 40 mg PO HS [facility] Last Admin: 11/18/19 20:03 Dose: 40 mg Benzonatate (Tessalon) 100 mg PO TIDPRN PRN PRN Reason: Cough Last Admin: 11/16/19 04:01 Dose: 100 mg Clopidogrel Bisulfate (Plavix) 75 mg PO DAILY [facility] Last Admin: 11/19/19 14:47 Dose: 75 mg Dextrose/Water (Dextrose 50%) 25 gm SLOW IVP PRN PRN PRN Reason: Hypoglycemia Famotidine (Pepcid) 20 mg SLOW IVP DAILY [facility] Last Admin: 11/19/19 14:45 Dose: 20 mg Furosemide (Lasix) 80 mg SLOW IVP 0600,1400 [facility] Last Admin: 11/19/19 14:46 Dose: 80 mg Gabapentin (Neurontin) 300 mg PO DAILY [facility] Last Admin: 11/19/19 14:47 Dose: 300 mg Glucagon (Glucagon) 1 mg IM PRN PRN PRN Reason: Hypoglycemia Guaifenesin/Dextromethorphan (Robitussin Dm) 15 ml PO Q4H PRN PRN Reason: Cough Last Admin: 11/12/19 23:09 Dose: 15 ml Hydralazine HCl (Apresoline) 50 mg PO TID [facility] Last Admin: 11/19/19 12:14 Dose: Not Given Insulin Glargine 80 units/ (Miscellaneous Medication) 0.8 mls @ 0 mls/hr SC HS [facility] Last Admin: 11/18/19 21:41 Dose: Not Given Dextrose/Water (D5w) 1,000 mls @ 0 mls/hr IV .Q0M PRN PRN Reason: Hypoglycemia Promethazine HCl 12.5 mg/ (Sodium Chloride) 50.5 mls @ 202 mls/hr IVPB Q6H PRN PRN Reason: Nausea Insulin Human Lispro (Humalog) 0 units SC .AGGRESSIVE SLIDING PRN PRN Reason: Aggressive Correctional Scale Last Admin: 11/18/19 21:37 Dose: 3 unit Isosorbide Mononitrate (Imdur Er) 30 mg PO DAILY [facility] Last Admin: 11/19/19 14:48 Dose: 30 mg Metoprolol Tartrate (Lopressor) 100 mg PO BID [facility] Last Admin: 11/19/19 12:14 Dose: Not Given Morphine Sulfate (Morphine) 2 mg SLOW IVP BIDPRN PRN PRN Reason: Pain Last Admin: 11/19/19 12:48 Dose: 2 mg Read Ppd Test Site 0 each PO ONE [facility] Stop: 11/19/19 23:59 Liraglutide [Victoza (2-Ricardo] 0.6 Mg) 0 each SC DAILY [facility] Polyethylene Glycol (Miralax) 17 gm PO DAILY [facility] Last Admin: 11/18/19 07:57 Dose: Not Given Promethazine HCl (Phenergan) 12.5 mg PO Q6H PRN PRN Reason: Nausea/Vomiting Last Admin: 11/16/19 05:51 Dose: 12.5 mg Promethazine HCl (Phenergan) 12.5 mg IM/IV Q6H PRN PRN Reason: Nausea/Vomiting Last Admin: 11/19/19 12:50 Dose: 12.5 mg Ranolazine (Ranexa) 500 mg PO BID [facility] Last Admin: 11/19/19 12:14 Dose: Not Given Sevelamer Carbonate (Renvela) 800 mg PO TID-[facility] Last Admin: 11/19/19 12:11 Dose: Not Given Sodium Chloride (Flush - Normal Saline) 10 ml IVF Q12HR PRN PRN Reason: Saline Flush Last Admin: 11/16/19 09:49 Dose: 10 ml Sodium Chloride (Flush - Normal Saline) 10 ml IVF PRN PRN PRN Reason: Saline Flush Last Admin: 11/17/19 15:04 Dose: 10 ml Tramadol HCl (Ultram) 50 mg PO Q4H PRN PRN Reason: Moderate Pain (4-6) Last Admin: 11/17/19 15:01 Dose: 50 mg Vital Signs & Weight: Vital Signs Temp Pulse Resp BP BP Pulse Ox 11/19/19 14:26 98.2 F 97 18 145/75 H 96 11/19/19 12:37 98.1 F 86 18 160/80 H 95 11/19/19 08:14 98.4 F 89 14 141/68 H 94 L Admit Weight 306 lb 4.8 oz Weight 290 lb 7 oz - Physical Exam General: alert & oriented x3 HEENT: mucus membranes moist Neck: supple neck Cardiac: regular rate and rhythm, S1/S2 Lungs: clear to auscultation, decreased breath sounds Neuro: cranial nerve 2-12 intact - Labs Result Diagrams: 11/18/19 03:22 11/19/19 09:50 Troponin/CKMB CK-MB (CK-2) 3.0 ng/mL (0-6.6) 11/12/19 12:36 Troponin I 0.034 ng/mL (< 0.028) H 11/12/19 12:36 - Telemetry Sinus rhythms and dysrhythmias: sinus rhythm - Assessment/Plan Assessment/Plan: 1. CAD - no CP at this moment; s/p re-do cath in 10/2019 with residual stenosis of 50% in the LAD and RCA. Continue present therapy. On Metoprolol, ASA, Plavix , and Lipitor; not on GADIEL/ARB due to hx of CKD 2. Acute on Chronic combined HF with EF 50-55% (40-45% in 09/2019) and grade I dd - on BBlocker and Laisx; not on GADIEL/ARB due to hx of CKD; on HD now 3. KAY on CKD - s/p AV fistula placement; managed by ornament stapler 4. HTN - stable 5. Insulin-dependent DM 6. Anemia - unchanged 7. Sleep apnea 8. nausea - possible Gastroparesis. The pt may f/u with GI as outpt? 9. Depression MAR reviewed * Last Echo showed EF 50-55% (40-45% in 09/2019), grade I dd, hypokinetic lateral wall, trace MR and ID, mild TR Pt. seen and eval. by me. I agree with the A/P by the ADVISORY INTERN. Chest clear. RRR. Left arm swollen, good bruit over the fistula site. still having nausea during dialysis.
[2019-11-19] MEDS: Polyethylene Glycol 3350 17 GM Packet PO SCH (16:02)
[2019-11-19] MEDS: Atorvastatin Calcium 40 MG TAB PO SCH (20:58)
[2019-11-19] MEDS: Insulin Glargine 80 UNITS in Pre-Filled Syringe 1 EACH SC SCH (20:59)
[2019-11-19] MEDS: traMADol HCl 50 MG TAB PO PRN (21:13)
[2019-11-20] MEDS: Promethazine HCl 25 MG/ML VIAL IM/IV PRN (03:26)
[2019-11-20] MEDS: traMADol HCl 50 MG TAB PO PRN (04:18)
[2019-11-20] MEDS: Morphine 2 MG/ML SYRINGE SLOW IVP PRN ×2 (06:07→20:53)
[2019-11-20] MEDS: Furosemide 100 MG/10 ML VIAL SLOW IVP SCH ×2 (06:08→14:40)
--- NOTE | 2019-11-20 07:15 | PDOC.HOSPP ---
- Subjective Encounter Date: 11/19/19 Encounter Time: 11:15 Subjective: pt up in bed complains of pain to her left arm. - Objective Vital Signs & Weight: Vital Signs (12 hours) Temp Pulse Resp BP Pulse Ox 11/20/19 03:20 98.7 F 89 18 138/67 96 11/19/19 21:00 99.3 F 99 20 153/77 H 94 L Weight Admit Weight 306 lb 4.8 oz Weight 286 lb 4 oz I&O: 11/19/19 11/20/19 11/21/19 06:59 06:59 06:59 Intake Total 780 1040 Output Total 30 Balance 780 1010 Result Diagrams: 11/18/19 03:22 11/19/19 09:50 Additional Labs: Accuchecks 11/20/19 11/19/19 11/19/19 05:29 20:37 16:56 POC Glucose 271 H 169 H 216 H 11/19/19 12:37 POC Glucose 180 H Hospitalist ROS - Review of Systems Cardiovascular: denies: chest pain, palpitations, orthopnea, paroxysmal noc. dyspnea, edema, light headedness, other Gastrointestinal: denies: nausea, vomiting, abdominal pain, diarrhea, constipation, melena, hematochezia, other Genitourinary: denies: dysuria, frequency, incontinence, hematuria, retention, other - Medication Medications: Active Medications Generic Name Dose Route Start Last Admin Trade Name Freq PRN Reason Stop Dose Admin Amlodipine Besylate 10 mg 11/12/19 09:00 11/19/19 14:48 Norvasc PO 10 mg DAILY [facility] Administration Aspirin 325 mg 11/08/19 09:00 11/19/19 14:49 Ecotrin PO 325 mg DAILY [facility] Administration Atorvastatin Calcium 40 mg 11/08/19 21:00 11/19/19 20:58 Lipitor PO 40 mg HS [facility] Administration Benzonatate 100 mg 11/11/19 23:53 11/16/19 04:01 Tessalon PO 100 mg TIDPRN PRN Administration Cough Clopidogrel Bisulfate 75 mg 11/08/19 09:00 11/19/19 14:47 Plavix PO 75 mg DAILY [facility] Administration Famotidine 20 mg 11/08/19 09:00 11/19/19 14:45 Pepcid SLOW IVP 20 mg DAILY [facility] Administration Furosemide 80 mg 11/16/19 06:00 11/20/19 06:08 Lasix SLOW IVP 80 mg 0600,1400 [facility] Administration Gabapentin 300 mg 11/08/19 09:00 11/19/19 14:47 Neurontin PO 300 mg DAILY [facility] Administration Guaifenesin/Dextromethorphan 15 ml 11/08/19 06:48 11/12/19 23:09 Robitussin Dm PO 15 ml Q4H PRN Administration Cough Hydralazine HCl 50 mg 11/09/19 15:00 11/19/19 20:59 Apresoline PO 50 mg TID [facility] Administration Insulin Glargine 80 units/ 0.8 mls @ 0 mls/hr 11/08/19 21:00 11/19/19 20:59 Miscellaneous Medication SC Not Given [facility] Insulin Human Lispro 0 units 11/10/19 10:10 11/18/19 21:37 Humalog SC 3 unit .AGGRESSIVE SLIDING PRN Administration Aggressive Correctional Scale Isosorbide Mononitrate 30 mg 11/11/19 09:00 11/19/19 14:48 Imdur Er PO 30 mg DAILY [facility] Administration Metoprolol Tartrate 100 mg 11/08/19 09:00 11/19/19 20:59 Lopressor PO 100 mg BID [facility] Administration Morphine Sulfate 2 mg 11/15/19 18:03 11/20/19 06:07 Morphine SLOW IVP 2 mg BIDPRN PRN Administration Pain Polyethylene Glycol 17 gm 11/15/19 09:00 11/19/19 16:02 Miralax PO Not Given DAILY [facility] Promethazine HCl 12.5 mg 11/13/19 16:09 11/16/19 05:51 Phenergan PO 12.5 mg Q6H PRN Administration Nausea/Vomiting Promethazine HCl 12.5 mg 11/16/19 11:07 11/20/19 03:26 Phenergan IM/IV 12.5 mg Q6H PRN Administration Nausea/Vomiting Ranolazine 500 mg 11/08/19 09:00 11/19/19 20:58 Ranexa PO 500 mg BID [facility] Administration Sevelamer Carbonate 800 mg 11/08/19 08:00 11/19/19 17:12 Renvela PO 800 mg TID-[facility] Administration Sodium Chloride 10 ml 11/07/19 21:27 11/16/19 09:49 Flush - Normal Saline IVF 10 ml Q12HR PRN Administration Saline Flush Sodium Chloride 10 ml 11/07/19 21:27 11/17/19 15:04 Flush - Normal Saline IVF 10 ml PRN PRN Administration Saline Flush Tramadol HCl 50 mg 11/15/19 11:44 11/20/19 04:18 Ultram PO 50 mg Q4H PRN Administration Moderate Pain (4-6) - Exam Heart: negative: RRR, no murmur, no gallops, no rubs, normal peripheral pulses, irregular, diminshed peripheral pulses, murmur present, II/IV, III/IV Respiratory: negative: CTAB, no wheezes, no rales, no ronchi, normal chest expansion, no tachypnea, normal percussion, rales, rhonchi, tachypneic, wheezes Gastrointestinal: negative: soft, non-tender, non-distended, normal bowel sounds , no palpable masses, no hepatomegaly, no splenomegaly, no bruit, no guarding, no rigidity, tender to palpation, distended, diminished bowl sounds, voluntary guarding Extremities - other findings: left arm mild edema s/p fistula Hosp A/P - Plan (1) Acute on chronic combined systolic (congestive) and diastolic (congestive) heart failure Code(s): I50.43 - ACUTE ON CHRONIC COMBINED SYSTOLIC AND DIASTOLIC HRT FAIL Status: Acute (2) Acute worsening of stage 4 chronic kidney disease Code(s): N18.4 - CHRONIC KIDNEY DISEASE, STAGE 4 (SEVERE) Status: Acute (3) CAD (coronary artery disease) Code(s): I25.10 - ATHSCL HEART DISEASE OF [place] CORONARY ARTERY W/O ANG PCTRS Status: Chronic (4) Diabetes mellitus type II, uncontrolled Code(s): E11.65 - TYPE 2 DIABETES MELLITUS WITH HYPERGLYCEMIA Status: Chronic (5) HTN (hypertension) Code(s): I10 - ESSENTIAL (PRIMARY) HYPERTENSION Status: Chronic Qualifiers: Hypertension type: essential hypertension Qualified Code(s): I10 - Essential (primary) hypertension (6) Anemia of chronic disease Code(s): D63.8 - ANEMIA IN OTHER CHRONIC DISEASES CLASSIFIED ELSEWHERE Status : Acute - Plan Creatinine stabilized at 4.5, Joey Fuentes on hold since 11/12 Diuresed well, stopped Lasix, strict Is and Os Dr. Schroeder following for Cards GI f/u outpatient for chronic nausea 11/15 pt had her tunnel cath placed. dialysis per nephro. pt started her dialysis. will need dialysis set up. she has had chronic nausea. will see if she tolerates reglan. 11/16 pt has no more nausea, will monitor. she had her ppd placed and will need dialysis to be set up. 11/17 pt's nausea has improved. she had her fistula placed today. awaiting dialysis setup.
--- NOTE | 2019-11-20 07:33 | PRG ---
DATE OF SERVICE: 11/20/2019 SERVICE: Nephrology. SUBJECTIVE: A 48-year-old obese female with known history of diabetes, coronary artery disease, and CKD 4-5, admitted due to worsening generalized swelling and shortness of breath. The patient was found to have anasarca and acute on chronic heart failure, which did not improve with diuretics, hence started on hemodialysis. Last dialysis was yesterday, which was as tolerated. The patient continued to complain of left upper extremity swelling and pain. The patient had recent AV fistula creation on that same side. No associated nausea, vomiting, fever or shortness of breath. OBJECTIVE: VITAL SIGNS: Temperature 98.7, pulse 89, respiratory rate 18, SpO2 of 96% on room air, blood pressure 138/67. GENERAL: Obese female, in no distress. Afebrile. Anicteric. Acyanotic. HEENT: Normocephalic, atraumatic. Oral mucosa is moist. CARDIOVASCULAR: Regular rhythm and rate with normal heart sounds 1 and 2. RESPIRATORY: Fair air entry bilaterally with no obvious crackle or rhonchi or use of accessory muscles. GI: Good. Obese, soft, nontender, nondistended with normal bowel sounds. EXTREMITIES: Left upper extremity swelling and tenderness as well as surgical wound on the wrist and cubital fossa noted. Left lower extremity BKA noted as well. Other extremities are grossly normal with no edema or erythema. CARBIDE TOOL MAKER: Conscious, alert, and oriented x3 with appropriate mental status. DIAGNOSTIC DATA: There is no new labs today. However, renal function panel of November 19, 2019, showed sodium 134, potassium 4.4, chloride 99, CO2 of 26, BUN 56, creatinine 5.18, glucose 252, calcium 8.9, phosphorus 5.3, albumin 3.3. Note that this was prior to dialysis. ASSESSMENT: 1. Acute on chronic renal failure: Now deemed end-stage renal disease, on hemodialysis. 2. Nephrotic-range proteinuria: Thought to be due to diabetic nephropathy. 3. Anasarca: Due to fluid overload and hypoproteinemia. Improved with hemodialytic treatment. 4. Coronary artery disease. 5. Obesity. 6. Diabetes mellitus complicated with neuropathy, gastroparesis, and peripheral artery disease. PLAN: Given that there is no indication for hemodialysis today. We will plan on dialyzing the patient tomorrow. We will get repeat renal function tests and CBC in the morning. We will plan on commencing IV iron therapy and erythrocyte-stimulating agent depending on hemoglobin level. The patient can be discharged from Nephrology point of view once outpatient hemodialysis arrangements could be completed. Further treatment to follow depending on hospital course. Job ID: [id number]
[2019-11-20] MEDS: Isosorbide Mononitrate (ER) 30 MG TAB PO SCH (09:48)
[2019-11-20] MEDS: Clopidogrel Bisulfate 75 MG TAB PO SCH (09:48)
[2019-11-20] MEDS: Amlodipine 10 MG TAB PO SCH (09:48)
[2019-11-20] MEDS: Polyethylene Glycol 3350 17 GM Packet PO SCH (09:48)
[2019-11-20] MEDS: Aspirin 325 mg Enteric Coated Tablet PO SCH (09:48)
[2019-11-20] MEDS: Sevelamer Carbonate 800 MG TAB PO SCH ×3 (09:48→16:57)
[2019-11-20] MEDS: hydrALAZINE 25 MG TAB PO SCH ×3 (09:48→20:52)
[2019-11-20] MEDS: Gabapentin 300 MG CAP PO SCH (09:49)
[2019-11-20] MEDS: Metoprolol Tartrate 100 MG TAB PO SCH ×2 (09:49→20:52)
[2019-11-20] MEDS: Famotidine/PF 20 mg/2ml Vial SLOW IVP SCH (09:53)
[2019-11-20] MEDS ORDERED: DULoxetine 60 MG CAP PO SCH ×2 (10:27→10:45)
[2019-11-20] MEDS: HumaLOG 300 UNITS/3 ML VIAL SC PRN ×2 (10:35→12:05)
[2019-11-20] MEDS: Liraglutide [Victoza 2-Pak] 0.6 MG SC SCH ×3 (10:55→21:51)
--- NOTE | 2019-11-20 13:09 | PDOC.CPN ---
- Subjective Date: 11/20/19 Time: 13:10 Interval history: The pt seen and examined. No overnight events. No cardiac complaints. - Objective Allergies/Adverse Reactions: Allergies Allergy/AdvReac Type Severity Reaction Status Date / Time codeine AdvReac Verified 11/07/19 23:00 Visit Medications: Current Medications Acetaminophen (Tylenol) 1,000 mg PO Q6H PRN PRN Reason: Moderate to Severe Pain (6-10) Amlodipine Besylate (Norvasc) 10 mg PO DAILY [facility] Last Admin: 11/20/19 09:48 Dose: 10 mg Aspirin (Ecotrin) 325 mg PO DAILY [facility] Last Admin: 11/20/19 09:48 Dose: 325 mg Atorvastatin Calcium (Lipitor) 40 mg PO HS [facility] Last Admin: 11/19/19 20:58 Dose: 40 mg Benzonatate (Tessalon) 100 mg PO TIDPRN PRN PRN Reason: Cough Last Admin: 11/16/19 04:01 Dose: 100 mg Clopidogrel Bisulfate (Plavix) 75 mg PO DAILY [facility] Last Admin: 11/20/19 09:48 Dose: 75 mg Dextrose/Water (Dextrose 50%) 25 gm SLOW IVP PRN PRN PRN Reason: Hypoglycemia Duloxetine HCl (Cymbalta) 60 mg PO DAILY [facility] Duloxetine HCl (Cymbalta) 60 mg PO NOW [facility] Stop: 11/20/19 14:00 Last Admin: 11/20/19 10:43 Dose: 60 mg Famotidine (Pepcid) 20 mg SLOW IVP DAILY [facility] Last Admin: 11/20/19 09:53 Dose: 20 mg Furosemide (Lasix) 80 mg SLOW IVP 0600,1400 [facility] Last Admin: 11/20/19 06:08 Dose: 80 mg Gabapentin (Neurontin) 300 mg PO DAILY [facility] Last Admin: 11/20/19 09:49 Dose: 300 mg Glucagon (Glucagon) 1 mg IM PRN PRN PRN Reason: Hypoglycemia Guaifenesin/Dextromethorphan (Robitussin Dm) 15 ml PO Q4H PRN PRN Reason: Cough Last Admin: 11/12/19 23:09 Dose: 15 ml Hydralazine HCl (Apresoline) 50 mg PO TID [facility] Last Admin: 11/20/19 09:48 Dose: 50 mg Insulin Glargine 80 units/ (Miscellaneous Medication) 0.8 mls @ 0 mls/hr SC [facility] Last Admin: 11/19/19 20:59 Dose: Not Given Dextrose/Water (D5w) 1,000 mls @ 0 mls/hr IV .Q0M PRN PRN Reason: Hypoglycemia Promethazine HCl 12.5 mg/ (Sodium Chloride) 50.5 mls @ 202 mls/hr IVPB Q6H PRN PRN Reason: Nausea Last Admin: 11/20/19 11:07 Dose: 50.5 mls Insulin Human Lispro (Humalog) 0 units SC .AGGRESSIVE SLIDING PRN PRN Reason: Aggressive Correctional Scale Last Admin: 11/20/19 12:05 Dose: 9 unit Isosorbide Mononitrate (Imdur Er) 30 mg PO DAILY [facility] Last Admin: 11/20/19 09:48 Dose: 30 mg Metoprolol Tartrate (Lopressor) 100 mg PO BID [facility] Last Admin: 11/20/19 09:49 Dose: 100 mg Morphine Sulfate (Morphine) 2 mg SLOW IVP BIDPRN PRN PRN Reason: Pain Last Admin: 11/20/19 06:07 Dose: 2 mg Polyethylene Glycol (Miralax) 17 gm PO DAILY [facility] Last Admin: 11/20/19 09:48 Dose: 17 gm Promethazine HCl (Phenergan) 12.5 mg PO Q6H PRN PRN Reason: Nausea/Vomiting Last Admin: 11/16/19 05:51 Dose: 12.5 mg Promethazine HCl (Phenergan) 12.5 mg IM/IV Q6H PRN PRN Reason: Nausea/Vomiting Last Admin: 11/20/19 03:26 Dose: 12.5 mg Ranolazine (Ranexa) 500 mg PO BID [facility] Last Admin: 11/20/19 09:48 Dose: 500 mg Sevelamer Carbonate (Renvela) 800 mg PO TID[facility] Last Admin: 11/20/19 12:13 Dose: 800 mg Sodium Chloride (Flush - Normal Saline) 10 ml IVF Q12HR PRN PRN Reason: Saline Flush Last Admin: 11/20/19 09:53 Dose: 10 ml Sodium Chloride (Flush - Normal Saline) 10 ml IVF PRN PRN PRN Reason: Saline Flush Last Admin: 11/17/19 15:04 Dose: 10 ml Tramadol HCl (Ultram) 50 mg PO Q4H PRN PRN Reason: Moderate Pain (4-6) Last Admin: 11/20/19 04:18 Dose: 50 mg Vital Signs & Weight: Vital Signs Temp Pulse Pulse Pulse Resp BP BP 11/20/19 12:00 97.8 F 78 19 11/20/19 10:50 89 91 114/60 138/66 11/20/19 08:01 97.8 F 92 16 11/20/19 03:20 98.7 F 89 18 BP Pulse Ox 11/20/19 12:00 123/58 L 95 11/20/19 10:50 11/20/19 08:01 138/66 91 L 11/20/19 03:20 138/67 96 Admit Weight 306 lb 4.8 oz Weight 286 lb 4 oz - Physical Exam General: alert & oriented x3 HEENT: mucus membranes moist Neck: supple neck Cardiac: regular rate and rhythm, S1/S2 Lungs: clear to auscultation, decreased breath sounds - Labs Result Diagrams: 11/18/19 03:22 11/19/19 09:50 Troponin/CKMB CK-MB (CK-2) 3.0 ng/mL (0-6.6) 11/12/19 12:36 Troponin I 0.034 ng/mL (< 0.028) H 11/12/19 12:36 - Telemetry Sinus rhythms and dysrhythmias: sinus rhythm - Assessment/Plan Assessment/Plan: 1. CAD - no CP at this moment; s/p re-do cath in 10/2019 with residual stenosis of 50% in the LAD and RCA. Continue present therapy. On Metoprolol, ASA, Plavix , and Lipitor; not on GADIEL/ARB due to hx of CKD 2. Acute on Chronic combined HF with EF 50-55% (40-45% in 09/2019) and grade I dd - on BBlocker and Laisx; not on GADIEL/ARB due to hx of CKD; on HD now 3. KAY on CKD - s/p AV fistula placement; managed by stock worker 4. HTN - stable 5. Insulin-dependent DM 6. Anemia - unchanged 7. Sleep apnea 8. nausea - possible Gastroparesis. The pt may f/u with GI as outpt? 9. Depression MAR reviewed * Last Echo showed EF 50-55% (40-45% in 09/2019), grade I dd, hypokinetic lateral wall, trace MR and IA, mild TR * From Cardiac standpoint, the pt can be d/ewa; The pt will f/u with Dr Schroeder' office in 2 wks. Pt. seen and eval. by me. I agree with the A/P by the WORKDAY SENIOR ASSOCIATE. She is complaining of significant pain in the left arm at the site of the A-V fistula. There is some erythema around the site. Chest clear. RRR. minimal lower extremity edema. gjm
[2019-11-20 13:28] VITALS: BMI 42.3
--- NOTE | 2019-11-20 18:27 | PDOC.HOSPP ---
- Subjective Encounter Date: 11/20/19 Encounter Time: 10:15 Subjective: pt up in bed still nauseated and has pain to her left arm where her fistula is. - Objective Vital Signs & Weight: Vital Signs (12 hours) Temp Pulse Pulse Pulse Resp BP BP 11/20/19 16:00 98.5 F 85 18 11/20/19 14:40 82 123/58 L 11/20/19 12:00 97.8 F 78 19 11/20/19 10:50 89 91 114/60 11/20/19 08:01 97.8 F 92 16 BP BP BP Pulse Ox 11/20/19 16:00 110/60 98 11/20/19 14:40 11/20/19 12:00 123/58 L 95 11/20/19 10:50 138/66 11/20/19 08:01 138/66 91 L Weight Admit Weight 306 lb 4.8 oz Weight 286 lb 4 oz I&O: 11/19/19 11/20/19 11/21/19 06:59 06:59 06:59 Intake Total 780 1040 Output Total 30 Balance 780 1010 Result Diagrams: 11/18/19 03:22 11/19/19 09:50 Additional Labs: Accuchecks 11/20/19 11/20/19 11/20/19 17:23 11:28 05:29 POC Glucose 157 H 259 H 271 H 11/19/19 20:37 POC Glucose 169 H Hospitalist ROS - Review of Systems Respiratory: denies: cough, dry, shortness of breath, hemoptysis, SOB with excertion, pleuritic pain, sputum, wheezing, other Gastrointestinal: reports: nausea Genitourinary: denies: dysuria, frequency, incontinence, hematuria, retention, other Musculoskeletal: denies: neck pain, shoulder pain, arm pain, back pain, hand pain, leg pain, foot pain, other - Medication Medications: Active Medications Generic Name Dose Route Start Last Admin Trade Name Freq PRN Reason Stop Dose Admin Amlodipine Besylate 10 mg 11/12/19 09:00 11/20/19 09:48 Norvasc PO 10 mg DAILY [facility] Administration Aspirin 325 mg 11/08/19 09:00 11/20/19 09:48 Ecotrin PO 325 mg DAILY [facility] Administration Atorvastatin Calcium 40 mg 11/08/19 21:00 11/19/19 20:58 Lipitor PO 40 mg HS [facility] Administration Benzonatate 100 mg 11/11/19 23:53 11/16/19 04:01 Tessalon PO 100 mg TIDPRN PRN Administration Cough Clopidogrel Bisulfate 75 mg 11/08/19 09:00 11/20/19 09:48 Plavix PO 75 mg DAILY [facility] Administration Famotidine 20 mg 11/08/19 09:00 11/20/19 09:53 Pepcid SLOW IVP 20 mg DAILY [facility] Administration Furosemide 80 mg 11/16/19 06:00 11/20/19 14:40 Lasix SLOW IVP 80 mg 0600,1400 [facility] Administration Gabapentin 300 mg 11/08/19 09:00 11/20/19 09:49 Neurontin PO 300 mg DAILY [facility] Administration Guaifenesin/Dextromethorphan 15 ml 11/08/19 06:48 11/12/19 23:09 Robitussin Dm PO 15 ml Q4H PRN Administration Cough Hydralazine HCl 50 mg 11/09/19 15:00 11/20/19 14:40 Apresoline PO 50 mg TID [facility] Administration Insulin Glargine 80 units/ 0.8 mls @ 0 mls/hr 11/08/19 21:00 11/19/19 20:59 Miscellaneous Medication SC Not Given HS [facility] Promethazine HCl 12.5 mg/ 50.5 mls @ 202 mls/hr 11/19/19 06:34 11/20/19 11:07 Sodium Chloride IVPB 50.5 mls Q6H PRN Administration Nausea Insulin Human Lispro 0 units 11/10/19 10:10 11/20/19 12:05 Humalog SC 9 unit .AGGRESSIVE SLIDING PRN Administration Aggressive Correctional Scale Isosorbide Mononitrate 30 mg 11/11/19 09:00 11/20/19 09:48 Imdur Er PO 30 mg DAILY [facility] Administration Metoprolol Tartrate 100 mg 11/08/19 09:00 11/20/19 09:49 Lopressor PO 100 mg BID [facility] Administration Morphine Sulfate 2 mg 11/15/19 18:03 11/20/19 06:07 Morphine SLOW IVP 2 mg BIDPRN PRN Administration Pain Polyethylene Glycol 17 gm 11/15/19 09:00 11/20/19 09:48 Miralax PO 17 gm DAILY [facility] Administration Promethazine HCl 12.5 mg 11/13/19 16:09 11/16/19 05:51 Phenergan PO 12.5 mg Q6H PRN Administration Nausea/Vomiting Promethazine HCl 12.5 mg 11/16/19 11:07 11/20/19 03:26 Phenergan IM/IV 12.5 mg Q6H PRN Administration Nausea/Vomiting Ranolazine 500 mg 11/08/19 09:00 11/20/19 09:48 Ranexa PO 500 mg BID [facility] Administration Sevelamer Carbonate 800 mg 11/08/19 08:00 11/20/19 16:57 Renvela PO 800 mg TID-[facility] Administration Sodium Chloride 10 ml 11/07/19 21:27 11/20/19 09:53 Flush - Normal Saline IVF 10 ml Q12HR PRN Administration Saline Flush Sodium Chloride 10 ml 11/07/19 21:27 11/17/19 15:04 Flush - Normal Saline IVF 10 ml PRN PRN Administration Saline Flush Tramadol HCl 50 mg 11/15/19 11:44 11/20/19 04:18 Ultram PO 50 mg Q4H PRN Administration Moderate Pain (4-6) - Exam Heart: negative: RRR, no murmur, no gallops, no rubs, normal peripheral pulses, irregular, diminshed peripheral pulses, murmur present, II/IV, III/IV Respiratory: negative: CTAB, no wheezes, no rales, no ronchi, normal chest expansion, no tachypnea, normal percussion, rales, rhonchi, tachypneic, wheezes Gastrointestinal: negative: soft, non-tender, non-distended, normal bowel sounds , no palpable masses, no hepatomegaly, no splenomegaly, no bruit, no guarding, no rigidity, tender to palpation, distended, diminished bowl sounds, voluntary guarding Extremities: 1+ LE edema Extremities - other findings: left hand fistula Hosp A/P - Plan (1) Acute on chronic combined systolic (congestive) and diastolic (congestive) heart failure Code(s): I50.43 - ACUTE ON CHRONIC COMBINED SYSTOLIC AND DIASTOLIC HRT FAIL Status: Acute (2) Acute worsening of stage 4 chronic kidney disease Code(s): N18.4 - CHRONIC KIDNEY DISEASE, STAGE 4 (SEVERE) Status: Acute (3) CAD (coronary artery disease) Code(s): I25.10 - ATHSCL HEART DISEASE OF [place] CORONARY ARTERY W/O ANG PCTRS Status: Chronic (4) Diabetes mellitus type II, uncontrolled Code(s): E11.65 - TYPE 2 DIABETES MELLITUS WITH HYPERGLYCEMIA Status: Chronic (5) HTN (hypertension) Code(s): I10 - ESSENTIAL (PRIMARY) HYPERTENSION Status: Chronic Qualifiers: Hypertension type: essential hypertension Qualified Code(s): I10 - Essential (primary) hypertension (6) Anemia of chronic disease Code(s): D63.8 - ANEMIA IN OTHER CHRONIC DISEASES CLASSIFIED ELSEWHERE Status : Acute - Plan Creatinine stabilized at 4.5, Dr. Faria following, Lasix on hold since 11/12 Diuresed well, stopped Lasix, strict Is and Os Dr. Elda bond for Cards GI f/u outpatient for chronic nausea 11/15 pt had her tunnel cath placed. dialysis per nephro. pt started her dialysis. will need dialysis set up. she has had chronic nausea. will see if she tolerates reglan. 11/16 pt has no more nausea, will monitor. she had her ppd placed and will need dialysis to be set up. 11/17 pt's nausea has improved. she had her fistula placed today. awaiting dialysis setup. 11/19 Awaiting dialysis set up. will change phenergan to oral.
[2019-11-20] MEDS: Insulin Glargine 80 UNITS in Pre-Filled Syringe 1 EACH SC SCH (20:52)
[2019-11-20] MEDS: Atorvastatin Calcium 40 MG TAB PO SCH (20:52)
[2019-11-20] MEDS: Promethazine 25 MG TAB PO PRN (21:31)
[2019-11-21] MEDS: Furosemide 100 MG/10 ML VIAL SLOW IVP SCH (07:23)
[2019-11-21] MEDS: Morphine 2 MG/ML SYRINGE SLOW IVP PRN (08:35)
[2019-11-21] MEDS: Promethazine 25 MG TAB PO PRN ×2 (08:39→16:11)
[2019-11-21] MEDS: HumaLOG 300 UNITS/3 ML VIAL SC PRN (08:41)
[2019-11-21] MEDS ORDERED: DULoxetine 60 MG CAP PO SCH (09:00)
[2019-11-21 09:16] LABS: #Basophils 0.1 thou/uL (0.0-0.2); #Eosinphils 1.1 thou/uL (0.0-0.7); #Lymphocytes 1.9 thou/uL (1.20-3.40); #Monocytes 0.8 thou/uL (0.11-0.59); #Neutrophils 7.8 thou/uL (1.40-6.50); %Basophils 0.5 % (0.0-1.0); %Eosinophils 9.6 % (0.0-10.0); %Lymphocytes 16.1 % (21.0-51.0); %Monocytes 6.8 % (0.0-10.0); Hemoglobin 9.2 g/dL (12.0-16.0); Mean Corpuscular Hemoglobin 29.7 pg (27.0-31.0); Mean Corpuscular Volume 93.1 fL (78.0-98.0); Mean Platelet Volume 8.2 fL (7.4-10.4); Platelet Count 210 thou/uL (130-400); RBC Distribution Width 12.5 % (11.5-14.5); White Blood Cell (WBC) Count 11.6 thou/uL (4.8-10.8)
[2019-11-21] MEDS ORDERED: Heparin 10,000 UNITS/ 10 ML VIAL ONE (09:28)
[2019-11-21] MEDS: Sevelamer Carbonate 800 MG TAB PO SCH ×3 (09:32→17:01)
[2019-11-21] MEDS: hydrALAZINE 25 MG TAB PO SCH ×2 (09:33→14:32)
[2019-11-21] MEDS: Polyethylene Glycol 3350 17 GM Packet PO SCH (09:33)
[2019-11-21 09:41] LABS: Anion Gap 13 mmol/L (10-20); BUN (Urea Nitrogen) 50 mg/dL (7.0-18.7); Calc. Creatinine Clearance 28 mL/min (70-130); Carbon Dioxide 28 mmol/L (22-29); Chloride 97 mmol/L (98-107); Estimated GFR-MDRD 9; Glucose 193 mg/dL (70-105); Potassium 4.3 mmol/L (3.5-5.1); Sodium 134 mmol/L (136-145)
[2019-11-21] MEDS ORDERED: traMADol HCl 50 MG TAB PO PRN (10:14)
--- NOTE | 2019-11-21 11:18 | PDOC.CPN ---
- Subjective Date: 11/21/19 Time: 11:18 Interval history: The pt seen and examined. No overnight events. No cardiac complaints. cont. having tenderness to AV graft site, but better than yesterday. - Objective Allergies/Adverse Reactions: Allergies Allergy/AdvReac Type Severity Reaction Status Date / Time codeine AdvReac Verified 11/07/19 23:00 Visit Medications: Current Medications Acetaminophen (Tylenol) 1,000 mg PO Q6H PRN PRN Reason: Moderate to Severe Pain (6-10) Amlodipine Besylate (Norvasc) 10 mg PO DAILY [facility] Last Admin: 11/20/19 09:48 Dose: 10 mg Aspirin (Ecotrin) 325 mg PO DAILY [facility] Last Admin: 11/20/19 09:48 Dose: 325 mg Atorvastatin Calcium (Lipitor) 40 mg PO HS [facility] Last Admin: 11/20/19 20:52 Dose: 40 mg Benzonatate (Tessalon) 100 mg PO TIDPRN PRN PRN Reason: Cough Last Admin: 11/16/19 04:01 Dose: 100 mg Clopidogrel Bisulfate (Plavix) 75 mg PO DAILY [facility] Last Admin: 11/20/19 09:48 Dose: 75 mg Dextrose/Water (Dextrose 50%) 25 gm SLOW IVP PRN PRN PRN Reason: Hypoglycemia Duloxetine HCl (Cymbalta) 60 mg PO DAILY [facility] Famotidine (Pepcid) 20 mg SLOW IVP DAILY [facility] Last Admin: 11/20/19 09:53 Dose: 20 mg Furosemide (Lasix) 80 mg SLOW IVP 0600,1400 [facility] Last Admin: 11/21/19 07:23 Dose: 80 mg Gabapentin (Neurontin) 300 mg PO DAILY [facility] Last Admin: 11/20/19 09:49 Dose: 300 mg Glucagon (Glucagon) 1 mg IM PRN PRN PRN Reason: Hypoglycemia Guaifenesin/Dextromethorphan (Robitussin Dm) 15 ml PO Q4H PRN PRN Reason: Cough Last Admin: 11/12/19 23:09 Dose: 15 ml Hydralazine HCl (Apresoline) 50 mg PO TID [facility] Last Admin: 11/21/19 09:33 Dose: Not Given Insulin Glargine 80 units/ (Miscellaneous Medication) 0.8 mls @ 0 mls/hr SC [facility] Last Admin: 11/20/19 20:52 Dose: Not Given Dextrose/Water (D5w) 1,000 mls @ 0 mls/hr IV .Q0M PRN PRN Reason: Hypoglycemia Insulin Human Lispro (Humalog) 0 units SC .AGGRESSIVE SLIDING PRN PRN Reason: Aggressive Correctional Scale Last Admin: 11/21/19 08:41 Dose: 3 unit Isosorbide Mononitrate (Imdur Er) 30 mg PO DAILY [facility] Last Admin: 11/20/19 09:48 Dose: 30 mg Metoprolol Tartrate (Lopressor) 100 mg PO BID [facility] Last Admin: 11/20/19 20:52 Dose: 100 mg Morphine Sulfate (Morphine) 2 mg SLOW IVP BIDPRN PRN PRN Reason: Pain Last Admin: 11/21/19 08:35 Dose: 2 mg Polyethylene Glycol (Miralax) 17 gm PO DAILY [facility] Last Admin: 11/21/19 09:33 Dose: Not Given Promethazine HCl (Phenergan) 12.5 mg PO Q6H PRN PRN Reason: Nausea/Vomiting Last Admin: 11/21/19 08:39 Dose: 12.5 mg Ranolazine (Ranexa) 500 mg PO BID [facility] Last Admin: 11/20/19 20:52 Dose: 500 mg Sevelamer Carbonate (Renvela) 800 mg PO TID[facility] Last Admin: 11/21/19 09:32 Dose: Not Given Sodium Chloride (Flush - Normal Saline) 10 ml IVF Q12HR PRN PRN Reason: Saline Flush Last Admin: 11/20/19 20:52 Dose: 10 ml Sodium Chloride (Flush - Normal Saline) 10 ml IVF PRN PRN PRN Reason: Saline Flush Last Admin: 11/17/19 15:04 Dose: 10 ml Tramadol HCl (Ultram) 50 mg PO Q12H PRN PRN Reason: Moderate Pain (4-6) Vital Signs & Weight: Vital Signs Temp Pulse Resp BP BP Pulse Ox 11/21/19 07:15 98.0 F 77 16 132/64 93 L 11/21/19 03:59 97.7 F 68 20 109/55 L 94 L 11/20/19 23:32 72 14 103/59 L 95 Admit Weight 306 lb 4.8 oz Weight 295 lb 14.4 oz - Physical Exam General: alert & oriented x3 HEENT: mucus membranes moist Neck: supple neck Cardiac: regular rate and rhythm, S1/S2 Lungs: clear to auscultation Neuro: cranial nerve 2-12 intact - Labs Result Diagrams: 11/21/19 09:02 11/21/19 09:02 Troponin/CKMB CK-MB (CK-2) 3.0 ng/mL (0-6.6) 11/12/19 12:36 Troponin I 0.034 ng/mL (< 0.028) H 11/12/19 12:36 - Telemetry Sinus rhythms and dysrhythmias: sinus rhythm - Assessment/Plan Assessment/Plan: 1. CAD - no CP at this moment; s/p re-do cath in 10/2019 with residual stenosis of 50% in the LAD and RCA. Continue present therapy. On Metoprolol, ASA, Plavix , and Lipitor; not on GADIEL/ARB due to hx of CKD 2. Acute on Chronic combined HF with EF 50-55% (40-45% in 09/2019) and grade I dd - on BBlocker and Laisx; not on GADIEL/ARB due to hx of CKD; on HD now 3. KAY on CKD - s/p AV fistula placement; managed by dietitian consultant 4. HTN - stable 5. Insulin-dependent DM 6. Anemia - unchanged 7. Sleep apnea 8. nausea - possible Gastroparesis. The pt may f/u with GI as outpt? 9. Depression MAR reviewed * Last Echo showed EF 50-55% (40-45% in 09/2019), grade I dd, hypokinetic lateral wall, trace MR and CA, mild TR * From Cardiac standpoint, the pt can be d/ewa; The pt will f/u with Dr Schroeder' office in 2 wks.
--- NOTE | 2019-11-21 11:51 | PRG ---
DATE OF SERVICE: 11/21/2019 SERVICE: Nephrology. SUBJECTIVE: A 48-year-old female with known history of diabetes complicated with peripheral artery disease status post left BKA, coronary artery disease, CKD stage 4, admitted due to worsening generalized edema and shortness of breath. The patient felt diuretic therapy and was subsequently started on hemodialysis for anasarca resistant to diuretics. Clinically improved. No new problem. Left upper extremity swelling and pain/tenderness has improved. The patient is seen at dialysis unit. OBJECTIVE: VITAL SIGNS: Temperature 98.0, pulse 77, respiratory rate 16, SpO2 of 93% on room air, blood pressure is 132/64. GENERAL: Comfortable female, in no distress. Afebrile. Anicteric. Acyanotic. HEENT: Normocephalic and atraumatic. Oral mucosa is moist. CARDIOVASCULAR: Regular rhythm and rate with normal heart sounds one and two. RESPIRATORY: Fair air entry bilaterally with no obvious crackle or rhonchi or use of accessory muscles. GI: Obese, soft, nontender, nondistended with normal bowel sounds. EXTREMITIES: Resolving left upper extremity edema noted. No erythema appreciated. Left lower extremity BKA noted. Other extremities are grossly unremarkable with no edema or erythema. COUNTER INTELLIGENCE TECHNICIAN: Conscious, alert, and oriented x3 with appropriate mental status. Cranial nerves 2 through 12 are grossly intact. DIAGNOSTIC DATA: CBC showed WBC count of 11.6, hemoglobin of 9.2, platelet of 210. BMP showed sodium 134, potassium 4.3, chloride 97, CO2 of 28, BUN 50, creatinine 5.22, glucose 193, calcium 9.0. ASSESSMENT: 1. Acute on chronic renal failure, now end-stage renal disease on hemodialysis. 2. Anasarca with respiratory failure: Improved with diuretics and hemodialysis. 3. Hypertension: Control is better. Blood pressures tend to run on the low side. 4. Anemia in chronic kidney disease: Iron deficiency is a concern. PLAN: 1. We will continue hemodialysis Monday, , and Monday. 2. We will hold amlodipine for now given soft blood pressures. 3. We will get iron chemistry in the morning with a view to starting IV iron and erythrocyte-stimulating agent therapy. 4. Other treatment to follow depending on hospital course. The patient can be discharged from Nephrology point of view once outpatient hemodialysis placement is concluded. Job ID: [id number]
[2019-11-21] MEDS: Aspirin 325 mg Enteric Coated Tablet PO SCH (14:31)
[2019-11-21] MEDS: Clopidogrel Bisulfate 75 MG TAB PO SCH (14:32)
[2019-11-21] MEDS: Isosorbide Mononitrate (ER) 30 MG TAB PO SCH (14:32)
[2019-11-21] MEDS: Metoprolol Tartrate 100 MG TAB PO SCH (14:32)
[2019-11-21] MEDS: Gabapentin 300 MG CAP PO SCH (14:32)
[2019-11-21] MEDS: Famotidine/PF 20 mg/2ml Vial SLOW IVP SCH (14:33)
[2019-11-21] MEDS: Amlodipine 10 MG TAB PO SCH (14:34)
[2019-11-21 15:47] VITALS: BP 128/60; TEMP 98
--- NOTE | 2019-11-22 02:36 | DIS ---
DATE OF ADMISSION: 11/07/2019 DATE OF DISCHARGE: 11/21/2019 PRIMARY CARE PROVIDER: [facility]. DISCHARGE DIAGNOSES: 1. End-stage renal disease, needing hemodialysis. 2. Anasarca with respiratory failure. 3. Anemia in chronic kidney disease. 4. Acute on chronic diastolic congestive heart failure, NYHA class III. 5. Hyponatremia. CONDITION OF PATIENT ON THE DAY OF DISCHARGE: Stable. I assessed Ms. Wilkes on the day of discharge. She denies any chest pain or shortness of breath. Vital signs are stable. S1 and S2 are heard, regular. Lungs are clear to auscultation bilaterally. DISCHARGE MEDICATIONS: She has been started on isosorbide mononitrate 30 mg daily. Hydralazine dose has been increased to 50 mg 3 times a day. She has been started on furosemide 80 mg daily. Amlodipine has been discontinued. Sodium bicarbonate has been discontinued. Otherwise, no change was made to her pre-admission home medications as dictated on my discharge summary dated 10/31/2019. CONSULTATIONS DURING THIS HOSPITALIZATION: 1. Nephrology, Dr. Douglas. 2. Cardiology Dr. Trinidad. 3. General Surgery, Dr. Mullen. HOSPITAL COURSE: Ms. Wilkes is a pleasant 48-year-old lady who was admitted to [facility] on 11/07/2019, for end-stage renal disease, needing dialysis, congestive heart failure exacerbation and shortness of breath. Please refer to Ms. Mtz's history and physical note dated 11/07/2019, for further details. She was seen by Nephrology, General Surgery, and Cardiology Services. 2D echocardiogram showed left ventricular ejection fraction of 50% to 55%, and E/A flow reversal suggestive of diastolic dysfunction. She was initially treated with diuretics. On 11/15, she underwent right IJ cuffed tunneled hemodialysis catheter and left IJ central line triple-lumen catheter placement. She was started on hemodialysis. Case Management was involved in arranging for dialysis chair. On 11/17, she underwent left arm primary fistula, perforating branch antecubital vein to the ulnar artery placement. She has been accepted for dialysis at [facility] and is being discharged home in a stable condition. DIET: Heart healthy, low-sodium, renal and diabetic. ACTIVITY: As tolerated. POST-ACUTE CARE FOLLOWUP: With primary care provider in 3 days, with exhibit designer in 2 to 3 weeks, and with general surgeon in 3 to 4 weeks. Many thanks for allowing me to participate in your patient's care. Please feel free to contact me with any questions or concerns. DISCHARGE DESTINATION: Home. TIME SPENT: Total amount of time spent coordinating this discharge: 33 minutes. Job ID: [id number]
--- NOTE | 2019-11-23 13:39 | EKG ---
Test Reason : Blood Pressure : / mmHG Vent. Rate : 077 BPM Atrial Rate : 077 BPM P-R Int : 216 ms QRS Dur : 166 ms QT Int : 464 ms P-R-T Axes : 018 218 -06 degrees QTc Int : 525 ms Sinus rhythm with 1st degree A-V block Right bundle branch block Abnormal ECG Confirmed by AZ WEBER ([id number]), benefit authorizer OCTAVIO LEROY ([id number]) on 11/23/2019 1:39:27 PM Referred By: Confirmed By:AZ Yu
== END 2019-11-21 17:20 | disposition home or self-care (01) | DRG 264 ==
LOC: ERS 15:18 → OBSVTOIN 19:17 → 2SW 19:17 → 2NO 11-10 17:50
PROVIDERS: ADMIT Internal Medicine; ATTEND Internal Medicine
PROC: 0JH63XZ Insertion of Tunneled Vascular Access Device into Chest Subcutaneous Tissue and Fascia, Percutaneous Approach (ICD-10-PCS; 2019-11-15)
PROC: 02HV33Z Insertion of Infusion Device into Superior Vena Cava, Percutaneous Approach (ICD-10-PCS; 2019-11-15)
PROC: B518YZA Fluoroscopy of Superior Vena Cava using Other Contrast, Guidance (ICD-10-PCS; 2019-11-15)
PROC: 5A1D70Z Performance of Urinary Filtration, Intermittent, Less than 6 Hours Per Day (ICD-10-PCS; 2019-11-15)
PROC: B544ZZA Ultrasonography of Left Jugular Veins, Guidance (ICD-10-PCS; 2019-11-15)
PROC: 031A0ZF Bypass Left Ulnar Artery to Lower Arm Vein, Open Approach (ICD-10-PCS; principal; 2019-11-18)
DX: I13.2 Hypertensive heart and chronic kidney disease with heart failure and with stage 5 chronic kidney disease, or end stage renal disease (principal); N18.6 End stage renal disease; I50.43 Acute on chronic combined systolic (congestive) and diastolic (congestive) heart failure; J96.00 Acute respiratory failure, unspecified whether with hypoxia or hypercapnia; I44.2 Atrioventricular block, complete; Z68.41 Body mass index [BMI] 40.0-44.9, adult; N17.9 Acute kidney failure, unspecified; T82.868A Thrombosis due to vascular prosthetic devices, implants and grafts, initial encounter; I82.611 Acute embolism and thrombosis of superficial veins of right upper extremity; E87.1 Hypo-osmolality and hyponatremia; I25.10 Atherosclerotic heart disease of native coronary artery without angina pectoris; I44.0 Atrioventricular block, first degree; I45.10 Unspecified right bundle-branch block; E11.42 Type 2 diabetes mellitus with diabetic polyneuropathy; E78.5 Hyperlipidemia, unspecified; M79.7 Fibromyalgia; F41.9 Anxiety disorder, unspecified; F32.9 Major depressive disorder, single episode, unspecified; D63.1 Anemia in chronic kidney disease; E66.01 Morbid (severe) obesity due to excess calories; G47.33 Obstructive sleep apnea (adult) (pediatric); I42.9 Cardiomyopathy, unspecified; E88.81 Metabolic syndrome and other insulin resistance; E11.22 Type 2 diabetes mellitus with diabetic chronic kidney disease; E78.00 Pure hypercholesterolemia, unspecified; E11.43 Type 2 diabetes mellitus with diabetic autonomic (poly)neuropathy; K31.84 Gastroparesis; E11.65 Type 2 diabetes mellitus with hyperglycemia; Y83.8 Other surgical procedures as the cause of abnormal reaction of the patient, or of later complication, without mention of misadventure at the time of the procedure; R80.8 Other proteinuria; E11.51 Type 2 diabetes mellitus with diabetic peripheral angiopathy without gangrene; Z90.49 Acquired absence of other specified parts of digestive tract; Z87.891 Personal history of nicotine dependence; Z88.5 Allergy status to narcotic agent; Z79.4 Long term (current) use of insulin; Z79.899 Other long term (current) drug therapy; Z89.512 Acquired absence of left leg below knee
CPT/HCPCS: 36415; 36416; 71045; 80048; 80053; 80069; 82553; 83880; 84484; 85025; 85027; 86580; 86704; 86706; 86803; 87340; 90935; 93005; 93010; 93306; 93798; 93970; C1752; C1769; G0257; G0365; J0670; J0690; J1642; J1644; J1815; J1940; J2250; J2270; J2405; J2550; J2704; J2720; J3010; Q0169; S0020; S0028

== ENCOUNTER 2019-12-13 14:57 | Inpatient (IN) | payer MEDICARE ==
--- NOTE | 2019-12-13 15:33 | RAD ---
CHEST 1 VIEW: COMPARISON: 11/15/2019. HISTORY: Pain. FINDINGS: Stable right-sided HemoSplit dialysis catheter. There is cardiomegaly. Pulmonary vessels and hilum are normal. Costophrenic angles are clear. No consolidation or mass. No pneumothorax or acute osse ous abnormalities. Linear density projects over the left hemithorax and is presumed to represent an external lead. Pearl elate clinically. IMPRESSION: Cardiomegaly without evidence of congestive heart failure. POS: PPP
[2019-12-13 15:54] LABS: #Basophils 0.1 thou/uL (0.0-0.2); #Eosinphils 0.4 thou/uL (0.0-0.7); #Lymphocytes 1.7 thou/uL (1.20-3.40); #Monocytes 0.5 thou/uL (0.11-0.59); #Neutrophils 5.7 thou/uL (1.40-6.50); %Basophils 0.8 % (0.0-1.0); %Eosinophils 4.8 % (0.0-10.0); %Lymphocytes 20.2 % (21.0-51.0); %Monocytes 5.7 % (0.0-10.0); %Neutrophils 68.6 % (42.0-75.0); Hemoglobin 9.4 g/dL (12.0-16.0); Mean Corpuscular Hemoglobin 32.1 pg (27.0-31.0); Mean Corpuscular Volume 94.4 fL (78.0-98.0); Mean Platelet Volume 7.5 fL (7.4-10.4); Platelet Count 266 thou/uL (130-400); RBC Distribution Width 13.8 % (11.5-14.5); Red Blood Cell (RBC) Count 2.91 mill/uL (4.20-5.40); White Blood Cell (WBC) Count 8.4 thou/uL (4.8-10.8)
[2019-12-13] MEDS ORDERED: Ondansetron PF 4 MG/2 ML Vial ONE (16:19)
[2019-12-13 16:32] LABS: ALT (SGPT) 12 U/L (8-55); AST (SGOT) 13 U/L (5-34); Albumin 3.5 g/dL (3.5-5.0); Alkaline Phosphatase 83 U/L (40-110); Anion Gap 16 mmol/L (10-20); BUN (Urea Nitrogen) 37 mg/dL (7.0-18.7); Bilirubin, Total 0.4 mg/dL (0.2-1.2); CK (CPK) 149 U/L (29-168); Calc. Creatinine Clearance 0 mL/min (70-130); Calcium 8.8 mg/dL (7.8-10.44); Carbon Dioxide 26 mmol/L (22-29); Chloride 102 mmol/L (98-107); Estimated GFR-MDRD 9; Globulin 2.8 g/dL (2.4-3.5); Glucose 225 mg/dL (70-105); Protein, Total 6.3 g/dL (6.0-8.3); Sodium 139 mmol/L (136-145)
--- NOTE | 2019-12-13 16:52 | ULT ---
EXAM: LEFT UPPER EXTREMITY VENOUS ULTRASOUND WITH DOPPLER: 12/13/19 HISTORY: Left arm fistula placed on 12/06/19. Left arm/hand swelling. Erythema at fistula site. TECHNIQUE: Dennison scale, color flow, Doppler imaging with spectral waveform analysis performed in the left upper e xtremity vasculature. FINDINGS: Internal jugular vein, subclavian vein are patent. Axillary vein, cephalic vein compress and have eileen w. Basilic vein compresses and has flow. Brachial vein and artery compress and have flow. Fistula, ju st below the antecubital fossa is patent. There is evidence of soft tissue edema. IMPRESSION: 1. Patent fistula. 2. Soft tissue edema. 3. Patency in the visualized left upper extremity venous system. POS: PPP
[2019-12-13] MEDS ORDERED: Acetaminophen 500 MG TAB ONE (17:16)
[2019-12-13] MEDS ORDERED: Fentanyl 100 MCG/2 ML VIAL ONE (18:34)
[2019-12-13] MEDS ORDERED: Nitroglycerin 2% Ointment 1 INCH/1 GM Packet ONE (18:34)
[2019-12-13] MEDS ORDERED: Dextrose 5% in Water 1,000 ML IV PRN (19:00)
[2019-12-13] MEDS ORDERED: Insulin Regular 300 UNITS/3 ML VIAL SC PRN ×2 (19:00)
[2019-12-13] MEDS ORDERED: Dextrose 50% Abboject 50 ML SYRINGE SLOW IVP PRN (19:00)
[2019-12-13 19:02] LABS: Troponin I 0.014 ng/mL (< 0.028)
--- NOTE | 2019-12-13 20:50 | HP ---
PRIMARY CARE PHYSICIAN: [facility]. SKIP LOCATOR: Dr. Schroeder. SHORTHAND TEACHER: Dr. Hernandez. CHIEF COMPLAINT: Near syncope, chest pain, dyspnea on exertion. HISTORY OF PRESENT ILLNESS: Ms. Wilkes is a 48-year-old female, who presents to the emergency room today with shortness of breath with exertion, chest pain. Reports that she has presyncopal episodes intermittently. Denies actual loss of consciousness, but reports that she gets weak and has to sit down. She reports these symptoms started Monday during her dialysis. She was sent across the street to [facility], where she was admitted for several days and discharged on Monday. She reports that she had dialysis prior to being discharged, but has not had it since then. She is normally a Monday, Monday, Monday patient. She is still able to make urine. Denies any dysuria. Reports some constipation, but reports that she has a long history of feeling nauseated. She reports that she has been told that she probably has gastroparesis and reports when she has these chest pains, which are intermittent and have been ongoing since at least Monday, then the nausea gets worse. She reports that she has had 2 cardiac caths this year, the last one in October. Reports that she was able to visit with Dr. Schroeder on the phone on Monday, who changed her Ranexa from 500 mg to 1000 mg p.o. b.i.d., but no other changes to her medication. She has known cardiac disease, residual stenosis 50% in the LAD and the RCA. She was seen earlier this month by Cardiology. Last echo with an EF of 50% to 55%. Cardiology states that she has acute on chronic combined heart failure, grade 1 DD. She is on a beta michelle and some Lasix. End-stage renal, potassium is currently 5. She reports that Dr. Hernandez put her on some antibiotics. Has the fistula that Dr. Mullen put in 3 weeks ago, has some swelling and some erythema. She reports that it has not improved, but has not gotten worse. Denies any fever. Denies any shortness of breath at rest. She was sent home on Monday from [place] with some p.o. antibiotics, which she is continuing. Due to the continuation of her chest pain, she is going to be admitted here for a Cardiology consult, trending the troponins. REVIEW OF SYSTEMS: The patient denies fever, chills. Reports chest pain. Denies palpitations. Does report some dyspnea on exertion. Denies cough. Denies shortness of breath at rest. Denies any abdominal pain. Does report nausea. Denies any diarrhea. Still is able to make urine. Denies any changes, any dysuria. She does have some edema of the left upper extremity, fistula was placed 3 weeks ago. She reports that arm is still swollen and has not either gotten worse or better since the surgery. All systems were reviewed and are negative unless mentioned in the HPI. PAST MEDICAL HISTORY: Coronary artery disease, stent placement x2, end-stage renal disease, on hemodialysis Monday, Monday, Monday, type 2 diabetes, neuropathy, hyperlipidemia, high cholesterol, hypertension, fibromyalgia. PAST SURGICAL HISTORY: Left knee surgery x4, back surgery x2, appendectomy, cholecystectomy, x3, hysterectomy, lithotripsy with stent on the left, left toe removed in 2017, subsequently had a BKA, left leg, surgery on her right 3rd toe, left fistula in earlier this month. PSYCHIATRIC HISTORY: Anxiety, depression. SOCIAL HISTORY: Denies any alcohol or drug use. Former tobacco smoker, quit more than 10 years ago. Lives at home with spouse. PHYSICAL EXAMINATION: VITAL SIGNS: Blood pressure 134/66, pulse is 74, respiratory rate is 13, temperature is 98.5, pO2 sats 96% on room air. CONSTITUTIONAL: The patient is alert and oriented, is in no apparent distress. HEENT: Head is atraumatic and normocephalic. Eyes, pupils are equally round and reactive to light. Eyelids are normal to inspection. ENT; mouth exam is normal. Mucous membranes are moist. NECK: Normal range of motion. Trachea is midline. RESPIRATORY/CHEST: Breath sounds are clear. Chest movement is symmetrical. CARDIOVASCULAR: Regular heart rate and rhythm. Heart sounds are normal. There is a temporary dialysis catheter in the right upper chest. BACK: Normal range of motion. No tenderness. EXTREMITIES: Upper extremity, edema is noted left extremity. Suture line which is healing. Palpable thrill in the fistula. Lower extremity, normal inspection. Normal range of motion. Amputation of left lower extremity. Has a BKA, left leg. Right with pedal pulse and intact. SKIN: Warm and dry, normal in color. PSYCHIATRIC: Has a normal affect. She is awake and alert. LABORATORY DATA: Troponin x2 has been undetectable. Sodium 139, potassium is 5, BUN is 37, creatinine is 5, estimated GFR is 9, and glucose is 225. Chemistry unremarkable. Chest x-ray shows cardiomegaly without any evidence of congestive heart failure. CBC with a white blood cell count 8.4, hemoglobin 9.4, hematocrit is 27.5, and platelet count is 266. PLAN/ASSESSMENT: 1. Chest pain with known coronary artery disease, has had 2 cardiac catheterizations, recent increase to the Ranexa this week. We will ask Cardiology to consult to see if there is any more that they would like to do. Has a history of congestive heart failure as well. Last echo with EF of 50% to 55%. Draw serial troponins. No EKG changes. We will restart home medications. 2. End-stage renal disease. Dr. Hernandez is patient's photoengraving proofer apprentice, he has been consulted. The patient did not have dialysis today as scheduled. Currently, chemistry is stable. There is no indication for needing emergent dialysis. 3. Diabetes type 2. We will restart insulin. Accu-Chek before meals and at bedtime. Sliding scale as needed for coverage. 4. Hypertension. Restart home medications. 5. Hyperlipidemia. We will restart her home medications. 6. We will obtain the records from her last hospital visits. We will continue the p.o. antibiotics that she was given there on Monday. 7. The patient reports near syncope. Please see #1. We will add orthostatic vital signs. 8. Gastrointestinal prophylaxis. 9. Discussed with Dr. Bernal, who agrees with plan. 10. Hospital course is dependent on clinical findings. Job ID: [id number]
[2019-12-13] MEDS: Promethazine HCl 12.5 MG in Sodium Chloride 0.9% 50 ML IVPB PRN (22:26)
[2019-12-13] MEDS: Polyethylene Glycol 3350 17 GM Packet PO SCH (22:28)
[2019-12-13] MEDS: Famotidine 20 MG TAB PO SCH (22:28)
[2019-12-13] MEDS ORDERED: Atorvastatin Calcium 40 MG TAB PO SCH (22:45)
[2019-12-13] MEDS ORDERED: Insulin Glargine 80 UNITS in Pre-Filled Syringe 1 EACH SC SCH (22:45)
[2019-12-14] MEDS: Promethazine HCl 12.5 MG in Sodium Chloride 0.9% 50 ML IVPB PRN (04:27)
[2019-12-14 04:59] LABS: #Basophils 0.1 thou/uL (0.0-0.2); #Eosinphils 0.5 thou/uL (0.0-0.7); #Lymphocytes 2.7 thou/uL (1.20-3.40); #Monocytes 0.6 thou/uL (0.11-0.59); #Neutrophils 3.9 thou/uL (1.40-6.50); %Basophils 0.8 % (0.0-1.0); %Eosinophils 6.4 % (0.0-10.0); %Lymphocytes 34.4 % (21.0-51.0); %Monocytes 7.9 % (0.0-10.0); %Neutrophils 50.6 % (42.0-75.0); Hemoglobin 9.5 g/dL (12.0-16.0); Mean Corpuscular HGB CONC 34.2 g/dL (32.0-36.0); Mean Corpuscular Hemoglobin 32.8 pg (27.0-31.0); Mean Corpuscular Volume 95.8 fL (78.0-98.0); Mean Platelet Volume 7.5 fL (7.4-10.4); Platelet Count 255 thou/uL (130-400); RBC Distribution Width 13.9 % (11.5-14.5); Red Blood Cell (RBC) Count 2.89 mill/uL (4.20-5.40); White Blood Cell (WBC) Count 7.8 thou/uL (4.8-10.8)
[2019-12-14] MEDS ORDERED: Morphine 2 MG/ML SYRINGE SLOW IVP SCH (05:00)
[2019-12-14 05:26] LABS: ALT (SGPT) 11 U/L (8-55); AST (SGOT) 15 U/L (5-34); Albumin 3.5 g/dL (3.5-5.0); Alkaline Phosphatase 81 U/L (40-110); Anion Gap 18 mmol/L (10-20); BUN (Urea Nitrogen) 42 mg/dL (7.0-18.7); Bilirubin, Total 0.3 mg/dL (0.2-1.2); Calc. Creatinine Clearance 26 mL/min (70-130); Calcium 8.7 mg/dL (7.8-10.44); Carbon Dioxide 23 mmol/L (22-29); Chloride 102 mmol/L (98-107); Estimated GFR-MDRD 8; Globulin 3.2 g/dL (2.4-3.5); Glucose 163 mg/dL (70-105); Potassium 4.4 mmol/L (3.5-5.1); Protein, Total 6.7 g/dL (6.0-8.3); Sodium 139 mmol/L (136-145)
[2019-12-14] MEDS ORDERED: Isosorbide Mononitrate (ER) 30 MG TAB PO SCH (09:00)
[2019-12-14] MEDS: hydrALAZINE 25 MG TAB PO SCH ×3 (09:01→20:52)
[2019-12-14] MEDS: DULoxetine 60 MG CAP PO SCH (09:01)
[2019-12-14] MEDS: Clopidogrel Bisulfate 75 MG TAB PO SCH (09:01)
[2019-12-14] MEDS: Gabapentin 300 MG CAP PO SCH (09:06)
[2019-12-14] MEDS: Aspirin 325 mg Enteric Coated Tablet PO SCH (09:06)
[2019-12-14] MEDS ORDERED: Metoprolol Tartrate 100 MG TAB PO SCH (10:15)
--- NOTE | 2019-12-14 10:39 | PDOC.HOSPP ---
- Subjective Encounter Date: 12/14/19 Encounter Time: 10:05 Subjective: Patient seen and examined for CP - resolved. SOB on mild exertion. No N/V/ diaphoresis/palpitations or near syncope. No new complaints. No overnight events - Objective Vital Signs & Weight: Vital Signs (12 hours) Temp Pulse Resp BP BP BP BP 12/14/19 09:01 78 191/105 H 12/14/19 07:42 97.3 F L 76 18 175/87 H 167/82 H 12/14/19 04:27 163/79 H 12/14/19 03:45 97.7 F 80 19 180/86 H BP Pulse Ox 12/14/19 09:01 12/14/19 07:42 190/93 H 96 12/14/19 04:27 12/14/19 03:45 97 Weight Weight 287 lb 9.6 oz I&O: 12/13/19 12/14/19 12/15/19 06:59 06:59 06:59 Intake Total 100 Balance 100 Result Diagrams: 12/14/19 04:26 12/14/19 04:26 Additional Labs: Accuchecks 12/13/19 21:01 POC Glucose 285 H EKG Reviewed by me: Yes (Tele SR) Hospitalist ROS - Review of Systems Respiratory: denies: cough, dry, shortness of breath, hemoptysis, SOB with excertion, pleuritic pain, sputum, wheezing, other Cardiovascular: denies: chest pain, palpitations, orthopnea, paroxysmal noc. dyspnea, edema, light headedness, other Gastrointestinal: denies: nausea, vomiting, abdominal pain, diarrhea, constipation, melena, hematochezia, other - Medication Medications: Active Medications Generic Name Dose Route Start Last Admin Trade Name Freq PRN Reason Stop Dose Admin Aspirin 325 mg 12/14/19 09:00 12/14/19 09:06 Ecotrin PO 325 mg DAILY PANCHO Administration Clopidogrel Bisulfate 75 mg 12/14/19 09:00 12/14/19 09:01 Plavix PO 75 mg DAILY PANCHO Administration Duloxetine HCl 60 mg 12/14/19 09:00 12/14/19 09:01 Cymbalta PO 60 mg DAILY PANCHO Administration Famotidine 20 mg 12/13/19 21:00 12/13/19 22:28 Pepcid PO 20 mg QPM PANCHO Administration Gabapentin 300 mg 12/14/19 09:00 12/14/19 09:06 Neurontin PO 300 mg DAILY PANCHO Administration Hydralazine HCl 50 mg 12/14/19 09:00 12/14/19 09:01 Apresoline PO 50 mg TID PANCHO Administration Promethazine HCl 12.5 mg/ 50.5 mls @ 202 mls/hr 12/13/19 19:01 12/14/19 04:27 Sodium Chloride IVPB 50.5 mls Q6H PRN Administration Nausea/Vomiting Insulin Human Regular 0 units 12/13/19 19:00 12/13/19 22:38 Humulin R SC 3 unit .BEDTIME SLIDING SC PRN Administration Bedtime Correctional Scale Isosorbide Mononitrate 30 mg 12/14/19 09:00 12/14/19 09:01 Imdur Er PO 30 mg DAILY PANCHO Administration Polyethylene Glycol 17 gm 12/13/19 21:00 12/13/19 22:28 Miralax PO Not Given BID [facility] - Exam General Appearance: NAD Heart: RRR, no gallops, no rubs, normal peripheral pulses Heart - other findings: no heaves Respiratory: no wheezes, no rales, no ronchi, normal chest expansion Gastrointestinal: non-tender, non-distended, normal bowel sounds, no guarding, no rigidity Extremities: no cyanosis, no clubbing, no edema Extremities - other findings: s/p Left BKA amputation Neurological: no focal deficits, no new deficit Psychiatric: normal affect, A&O x 3 Hosp A/P - Plan DVT proph w/heparin CP/near syncope - no new episodes HTN - uncontrolled CAD - on med mngt, Ranexa increased to 1000 mg BID recently ESRD LUE pain - USG - patent fistula Chronic nausea - prob due to gastroparesis DM2 Chronic Anemia due to renal insuf Depression - no SI Chronic diastolic HF - compensated Morbid obesity BMI 41.3 PLAN: Restart Metoprolol Increase Ranexa per Cardio recs Dialysis per Nephro Cont ASA/Plavix No GADIEL/ARB due to CKD Restart Keflex Home O2 eval Cont sliding scale Reduce Lantus dose
[2019-12-14] MEDS ORDERED: hydrALAZINE 20 MG/ML VIAL SLOW IVP PRN (10:48)
[2019-12-14] MEDS: Sevelamer Carbonate 800 MG TAB PO SCH ×3 (11:21→20:54)
[2019-12-14] MEDS: Promethazine 25 MG TAB PO PRN ×2 (11:22→22:18)
[2019-12-14] MEDS: traMADol HCl 50 MG TAB PO PRN ×2 (11:24→22:18)
[2019-12-14] MEDS: Polyethylene Glycol 3350 17 GM Packet PO SCH ×2 (11:25→21:02)
[2019-12-14] MEDS: Cephalexin 250 MG CAP PO SCH ×3 (14:09→20:52)
[2019-12-14] MEDS ORDERED: Amlodipine 5 MG TAB PO SCH (18:30)
--- NOTE | 2019-12-14 18:53 | PRG ---
DATE OF SERVICE: 12/14/2019 SERVICE: Nephrology. SUBJECTIVE: A 48-year-old female with known history of end-stage renal disease on hemodialysis, coronary artery disease, diabetes mellitus and hypertension, well known to me from previous hospitalization, who was just discharged from [facility] on December 10 following evaluation for acute onset of chest discomfort associated with shortness of breath and dizziness. The patient presented with similar symptoms as well as persistent left upper limb swelling and pain. There was no associated fever. The patient reports feeling better. Chest pain is said to be both at rest and with exertion and intermittent. She is known to have coronary artery disease that failed attempt at angioplasty with stent on two occasions. OBJECTIVE: VITAL SIGNS: Temperature 97.6, pulse 71, respiratory rate 14, SpO2 of 97% on room air, and blood pressure 161/83. GENERAL: Obese female, in no obvious distress. Afebrile. Anicteric. Acyanotic. HEENT: Normocephalic and atraumatic. Oral mucosa is moist. CARDIOVASCULAR: Regular rhythm and rate with normal heart sounds 1 and 2. RESPIRATORY: Fair air entry bilaterally with left base crackle posteriorly. No use of accessory muscles or rhonchi appreciated. GI: Obese, soft, nontender, and nondistended with normal bowel sounds. EXTREMITIES: Left upper limb mild edema with some induration and minimal redness around the area of AV fistula creation. Left BKA noted. Other extremities are grossly normal with no erythema or edema. OPERATING ROOM REGISTERED NURSE: Conscious, alert, and oriented x3 with appropriate mental status. Cranial nerves 2 through 12 are grossly intact. DIAGNOSTIC DATA: CBC showed WBC count of 7.8, hemoglobin of 9.5, MCV of 95.8, and platelet of 255. CMP today showed sodium 139, potassium 4.4, chloride 102, CO2 of 23, BUN 42, creatinine 5.51, glucose 163, calcium 8.7. Total bilirubin 0.3, AST 15, ALT 11, alkaline phosphatase 81, total protein 6.7, albumin 3.5, and globulin 3.2. Serial troponin has been unremarkable ranging from 0.010 to 0.015. Chest x-ray performed on presentation December 12 showed cardiomegaly without evidence of congestive heart failure. Pulmonary vessels and hilum are normal with clear costophrenic angles. Left upper extremity ultrasound with Doppler showed patent jugular vein and subclavian vein as well as axillary vein and cephalic vein. There is evidence of soft tissue edema. ASSESSMENT: 1. Recurrent near syncope. 2. Recurrent/intermittent chest pain associated with shortness of breath. 3. Coronary artery disease. 4. Presumed unstable angina in a patient with known coronary artery disease. 5. Left upper limb swelling and pain. 6. Suspected left upper extremity cellulitis on treatment. 7. End-stage renal disease, on hemodialysis. PLAN: 1. We will continue oral antibiotics. 2. Evaluation of chest pain as per Cardiology. 3. Given persistency of the visualized left upper extremity venous system on Doppler, consideration should be made for CT angio of the neck vessels to rule out subclavian still as well as proximal subclavian vein stenosis causing edema. 4. We will plan on doing hemodialysis if contrast study is performed. There is no immediate need for hemodialysis today. Further treatment to follow depending on hospital course. Job ID: [id number]
--- NOTE | 2019-12-14 19:59 | CON ---
DATE OF CONSULTATION: HISTORY OF PRESENT ILLNESS: Damaris Wilkes is a 48-year-old white female, patient of Dr. Schroeder. Due to Cardiolite showing some lateral ischemia, she underwent catheterization on 10/18/2019. This revealed 40% mid LAD and 90% distal LAD. The left circumflex had 99% to 100% mid lesion. The distal 2nd obtuse marginal WAS seen filling late with some collaterals from the LAD. The right coronary artery had a posterior takeoff and had no significant stenosis. She then was returned to the shift lab technician on 10/29/2019. There was a 50% LAD, total occlusion of the circumflex after the 1st obtuse marginal with unable to cross this area with a wire. There was retrograde filling from the left. Right posterolateral had 70% lesions. It was felt best to treat her medically; however, she has been hospitalized multiple times with continued chest discomfort. She was hospitalized earlier this week at [facility] for weakness, lightheadedness, and chest pain after she underwent dialysis. She was again admitted no with chest pain at this time. She has multiple episodes of chest pain per day, sometimes relieved with nitroglycerin, sometimes not. Many of the episodes occurred at rest and not with exertion. She was seen in the office on 12/08, and Ranexa was increased from 500 to 1000 b.i.d. PAST MEDICAL HISTORY: 1. Coronary artery disease. 2. End-stage renal disease, on dialysis. 3. Diabetes. 4. Hyperlipidemia. 5. Hypertension. 6. Fibromyalgia. OPERATIONS: 1. Multiple left knee surgeries. 2. Back surgery. 3. Appendectomy. 4. Cholecystectomy. 5. x3. 6. Hysterectomy. 7. Left toe amputation. 8. Left BKA. 9. AV fistula for dialysis. MEDICATIONS: 1. Aspirin 325 daily. 2. Plavix 75 mg daily. 3. Atorvastatin 40 nightly. 4. Keflex 250 q.i.d. 5. Cymbalta 60 daily. 6. Furosemide 80 daily. 7. Gabapentin 300 mg daily. 8. Hydralazine 50 t.i.d. 9. Isosorbide mononitrate 30 daily. 10. Victoza 0.6 mg subcutaneous daily. 11. Metoprolol 100 mg b.i.d. 12. Phenergan p.r.n. 13. Ranexa 1000 b.i.d. 14. Renvela 800 mg t.i.d. ALLERGIES: DEMEROL AND CODEINE. SOCIAL HISTORY: She does not smoke or drink. REVIEW OF SYSTEMS: Otherwise unremarkable. PHYSICAL EXAMINATION: VITAL SIGNS: Blood pressure 161/83 and pulse of 71. HEENT: PERRL. NECK: Supple. CHEST: Clear. CARDIAC: S1 and S2 are normal without any S3, S4, or murmurs. ABDOMEN: Obese. Normal bowel sounds. No tenderness. EXTREMITIES: No clubbing, cyanosis, or edema on the right. There is a left BKA. NEUROLOGIC: Grossly intact. DIAGNOSTIC STUDIES: EKG reveals normal sinus rhythm with right bundle-branch block. LABORATORY DATA: Hemoglobin 9.5, hematocrit 27.7, white count 7800, and platelets 255,000. Sodium 139, potassium 4.4, chloride 102, carbon dioxide 23, BUN 42, and creatinine 5.51. Troponin-I is normal x3. IMPRESSION: 1. Coronary artery disease with the most significant lesion being total occlusion of the circumflex and its midportion with inability to cross this with a wire. Despite aggressive medical management, she continues to have episodes of rest pain. 2. Hypertension. 3. Diabetes. 4. Hyperlipidemia. 5. Obesity. 6. End-stage renal disease, on dialysis. PLAN: Ms. Wilkes's blood pressure continues to be elevated at this time. I will add low-dose amlodipine and increase her isosorbide in case she has any component of coronary artery spasm. Also, with very aggressive medical therapy and continued episodes of resting chest discomfort, consideration needs to be given to the possibility that her current pain is not cardiac in nature. I will also start a therapeutic trial with proton pump inhibitor. We will continue to follow the patient with you. Job ID: [id number] [facility]
[2019-12-14] MEDS: Metoprolol Tartrate 100 MG TAB PO SCH (20:53)
[2019-12-14] MEDS: Famotidine 20 MG TAB PO SCH (20:54)
[2019-12-14] MEDS: Atorvastatin Calcium 40 MG TAB PO SCH (20:54)
[2019-12-14] MEDS: Insulin Glargine 60 UNITS in Pre-Filled Syringe SC SCH (20:55)
[2019-12-14] MEDS ORDERED: Non-Formulary Item 1 EACH (Insulin Detemir 100 Units/Ml [Levemir] 80 UNIT) SQ SCH (21:00)
[2019-12-14] MEDS ORDERED: Insulin Glargine 80 UNITS in Pre-Filled Syringe 1 EACH SC SCH (21:00)
[2019-12-14] MEDS: Acetaminophen 325 MG TAB PO PRN (22:19)
[2019-12-15] MEDS: Acetaminophen 325 MG TAB PO PRN (05:56)
[2019-12-15] MEDS: traMADol HCl 50 MG TAB PO PRN ×2 (05:56→17:14)
[2019-12-15] MEDS: Promethazine 25 MG TAB PO PRN ×2 (05:57→17:16)
[2019-12-15] MEDS: Gabapentin 300 MG CAP PO SCH (08:21)
[2019-12-15] MEDS: Metoprolol Tartrate 100 MG TAB PO SCH ×2 (08:22→21:10)
[2019-12-15] MEDS: Clopidogrel Bisulfate 75 MG TAB PO SCH (08:22)
[2019-12-15] MEDS: Amlodipine 5 MG TAB PO SCH (08:22)
[2019-12-15] MEDS: hydrALAZINE 25 MG TAB PO SCH ×3 (08:22→21:09)
[2019-12-15] MEDS: DULoxetine 60 MG CAP PO SCH (08:23)
[2019-12-15] MEDS: Aspirin 325 mg Enteric Coated Tablet PO SCH (08:23)
[2019-12-15] MEDS: Cephalexin 250 MG CAP PO SCH ×2 (08:23→21:09)
[2019-12-15] MEDS: Sevelamer Carbonate 800 MG TAB PO SCH ×3 (08:23→17:16)
[2019-12-15] MEDS: Polyethylene Glycol 3350 17 GM Packet PO SCH ×2 (08:23→21:11)
[2019-12-15] MEDS ORDERED: Heparin 10,000 UNITS/ 10 ML VIAL ONE (08:35)
--- NOTE | 2019-12-15 10:49 | CT ---
CT ANGIOGRAM THORAX WITH IV CONTRAST AND 3-D RECONSTRUCTIONS CLINICAL INDICATION: Shortness of breath and chest pain. Near syncope. COMPARISON: 08/12/2016 FINDINGS: Pulmonary arteries: There is suboptimal timing of the contrast bolus which limits adequate opacificat ion of pulmonary arteries. No filling defects are seen within the central or segmental pulmonary arteries, there is limited evaluation of subsegmental pulmonary arteries. Aorta: The aorta is normal in caliber without evidence of an aortic dissection. Lungs: Minimal dependent atelectasis is seen bilaterally. Lungs are otherwise clear. No consolidation or pleural effusion is seen. Mediastinum: No evidence of lymphadenopathy. Vascular calcifications are seen in the coronary arterie s. Heart is mildly enlarged. Very tiny pericardial effusion versus pericardial fluid is present. Thyroid gland: Normal CT appearance. Osseous structures: Degenerative changes are seen in the spine. Prominent osteophytes are seen anteri daniel involving the thoracic spine Chest wall: No abnormality visualized. Upper abdomen: Postcholecystectomy changes are again seen. IMPRESSION: 1. Suboptimal timing of the contrast bolus limiting adequate opacification of pulmonary arteries. No definite filling defect is seen in the central or segmental pulmonary arteries, but subsegmental pulmonary arteries are not well evaluated and pulmonary emboli at this level could not be excluded. 2. Mild cardiomegaly. 3. Dependent atelectasis bilaterally. Lungs are otherwise clear.
--- NOTE | 2019-12-15 11:10 | PDOC.HOSPP ---
- Subjective Encounter Date: 12/15/19 Encounter Time: 08:00 Subjective: Patient seen and examined for CP. Had some CP earlier - now resolved. No new SOB /palpitations. No new complaints. No overnight events - Objective Vital Signs & Weight: Vital Signs (12 hours) Temp Pulse Resp BP BP Pulse Ox 12/15/19 08:22 68 12/15/19 07:23 97.9 F 68 18 157/84 H 95 12/15/19 04:15 97.4 F L 71 16 147/74 H 96 12/14/19 23:40 97.8 F 74 16 145/73 H 96 Weight Admit Weight 292 lb Weight 287 lb 9.6 oz I&O: 12/14/19 12/15/19 12/16/19 06:59 06:59 06:59 Intake Total 100 720 Output Total 1100 Balance 100 -380 Result Diagrams: 12/14/19 04:26 12/14/19 04:26 Additional Labs: Accuchecks 12/15/19 12/14/19 12/14/19 05:43 20:12 16:09 POC Glucose 129 H 199 H 126 H EKG Reviewed by me: Yes (Tele SR) Hospitalist ROS - Review of Systems Respiratory: denies: cough, dry, shortness of breath, hemoptysis, SOB with excertion, pleuritic pain, sputum, wheezing, other Cardiovascular: denies: chest pain, palpitations, orthopnea, paroxysmal noc. dyspnea, edema, light headedness, other Gastrointestinal: reports: constipation. denies: nausea, vomiting, abdominal pain, diarrhea, melena, hematochezia, other - Medication Medications: Active Medications Generic Name Dose Route Start Last Admin Trade Name Freq PRN Reason Stop Dose Admin Acetaminophen 650 mg 12/13/19 18:57 12/15/19 05:56 Tylenol PO 650 mg Q4H PRN Administration Headache/Fever/Mild Pain (1-3) Amlodipine Besylate 2.5 mg 12/15/19 09:00 12/15/19 08:22 Norvasc PO 2.5 mg DAILY PANCHO Administration Aspirin 325 mg 12/14/19 09:00 12/15/19 08:23 Ecotrin PO 325 mg DAILY PANCHO Administration Atorvastatin Calcium 40 mg 12/14/19 21:00 12/14/19 20:54 Lipitor PO 40 mg HS PANCHO Administration Cephalexin 500 mg 12/14/19 21:00 12/15/19 08:23 Keflex PO 500 mg BID PANCHO Administration Clopidogrel Bisulfate 75 mg 12/14/19 09:00 12/15/19 08:22 Plavix PO 75 mg DAILY PANCHO Administration Duloxetine HCl 60 mg 12/14/19 09:00 12/15/19 08:23 Cymbalta PO 60 mg DAILY PANCHO Administration Famotidine 20 mg 12/13/19 21:00 12/14/19 20:54 Pepcid PO 20 mg QPM PANCHO Administration Gabapentin 300 mg 12/14/19 09:00 12/15/19 08:21 Neurontin PO 300 mg DAILY PANCHO Administration Hydralazine HCl 50 mg 12/14/19 09:00 12/15/19 08:22 Apresoline PO 50 mg TID PANCHO Administration Promethazine HCl 12.5 mg/ 50.5 mls @ 202 mls/hr 12/13/19 19:01 12/14/19 04:27 Sodium Chloride IVPB 50.5 mls Q6H PRN Administration Nausea/Vomiting Insulin Glargine 60 units/ 0.6 mls @ 0 mls/hr 12/14/19 21:00 12/14/19 20:55 Miscellaneous Medication SC 0.6 mls HS PANCHO Administration Insulin Human Regular 0 units 12/13/19 19:00 12/13/19 22:38 Humulin R SC 3 unit .BEDTIME SLIDING SC PRN Administration Bedtime Correctional Scale Isosorbide Mononitrate 60 mg 12/15/19 09:00 12/15/19 08:23 Imdur PO 60 mg DAILY PANCHO Administration Metoprolol Tartrate 100 mg 12/14/19 21:00 12/15/19 08:22 Lopressor PO 100 mg BID PANCHO Administration Pantoprazole Sodium 40 mg 12/14/19 21:00 12/14/19 20:54 Protonix PO 40 mg HS PANCHO Administration Polyethylene Glycol 17 gm 12/13/19 21:00 12/15/19 08:23 Miralax PO 17 gm BID PANCHO Administration Promethazine HCl 25 mg 12/14/19 10:14 12/15/19 05:57 Phenergan PO 25 mg Q6H PRN Administration Nausea Ranolazine 1,000 mg 12/14/19 21:00 12/15/19 08:22 Ranexa PO 1,000 mg BID PANCHO Administration Sevelamer Carbonate 800 mg 12/14/19 08:00 12/15/19 08:23 Renvela PO Not Given TID- PANCHO Tramadol HCl 50 mg 12/14/19 10:16 12/15/19 05:56 Ultram PO 50 mg Q6H PRN Administration Moderate Pain (4-6) - Exam General Appearance: NAD Heart: RRR, no gallops Respiratory: no wheezes, no ronchi Gastrointestinal: non-tender, non-distended, normal bowel sounds Extremities: no cyanosis Extremities - other findings: LUE edema Neurological: no new deficit Hosp A/P - Plan DVT proph w/SCDs CP/near syncope HTN CAD ESRD on dialysis LUE pain/swelling Chronic nausea - prob due to gastroparesis DM2 - on Lantus & sliding scale Chronic Anemia due to renal insuf Depression Chronic diastolic HF - No GADIEL/ARB due to CKD Morbid obesity BMI 41.3 PLAN: Add Sen S Cont ASA/Plavix Cont Metoprolol/Ranexa Imdur dose increased Amlodipine started CTA to r/o subcalvian steal Dialysis per Nephro Cont Keflex Home O2 eval at discharge AM labs
[2019-12-15] MEDS ORDERED: Senokot S 8.6-50 MG TAB PO SCH (11:30)
[2019-12-15] MEDS ORDERED: Iopamidol 370 76% 100 ML VIAL ONE (13:39)
[2019-12-15 15:31] LABS: HBSAg Index 0.31 S/CO (0-0.99); Hep B Surf Ag Non-Reactive S/CO (NonReactive)
--- NOTE | 2019-12-15 15:58 | PRG ---
DATE OF SERVICE: 12/15/2019 SERVICE: Nephrology. SUBJECTIVE: A 48-year-old female admitted due to recurrent chest pain associated with shortness of breath and lightheadedness. The patient was found to have possible cellulitis of left upper extremity and was started on antibiotics. Still complaining of intermittent chest pain. Denied nausea, vomiting, abdominal pain, or edema. Complained of generalized ill feeling. Had CT angio of neck and chest earlier today to assess neck vessels. OBJECTIVE: VITAL SIGNS: Temperature 97.7, pulse 69, respiratory rate 20, SpO2 of 99% on room air, blood pressure 130/75. GENERAL: Comfortable female, in no distress. Afebrile. Anicteric. Acyanotic. HEENT: Normocephalic, atraumatic. Oral mucosa is moist. CARDIOVASCULAR: Regular rhythm and rate with normal heart sounds 1 and 2. RESPIRATORY: Fair air entry bilaterally with no obvious crackle or rhonchi or use of accessory muscles. GI: Obese, soft, nontender, nondistended with normal bowel sounds. EXTREMITIES: Trace edema and erythema at the AV fistula creation site on left cubital fossa area. Left upper limb edema is regressing. Left BKA noted. Other extremities are grossly normal, atraumatic with no edema or erythema. ASSIST[employer]ILY [employer]UDIES: Conscious, alert, oriented x3 with appropriate mental status. DIAGNOSTIC DATA: No new labs today. ASSESSMENT AND PLAN: 1. End-stage renal disease, on hemodialysis. Last dialysis was on December 11, 2019. The patient also had contrast study earlier today. We will dialyze the patient with 2K bath for 3 hours. 2. Presumed cellulitis of left forearm. Continue antibiotic therapy with Keflex 500 mg b.i.d. We will give another dose of vancomycin after hemodialysis today. 3. Recurrent chest pain. Evaluation and treatment as per Cardiology. 4. Hypertension: Control is better. We will monitor after hemodialysis. 5. Diabetes mellitus, on treatment. 6. Further treatment to follow depending on hospital course. Job ID: [id number]
[2019-12-15] MEDS: Insulin Glargine 60 UNITS in Pre-Filled Syringe SC SCH (21:08)
[2019-12-15] MEDS: Atorvastatin Calcium 40 MG TAB PO SCH (21:09)
[2019-12-15] MEDS: Famotidine 20 MG TAB PO SCH (21:10)
[2019-12-15] MEDS: Senokot S 8.6-50 MG TAB PO SCH (21:10)
[2019-12-16] MEDS: Promethazine 25 MG TAB PO PRN ×4 (00:06→21:54)
[2019-12-16] MEDS: traMADol HCl 50 MG TAB PO PRN ×2 (00:06→06:04)
[2019-12-16 04:54] LABS: #Basophils 0.1 thou/uL (0.0-0.2); #Eosinphils 0.5 thou/uL (0.0-0.7); #Lymphocytes 1.9 thou/uL (1.20-3.40); #Monocytes 0.6 thou/uL (0.11-0.59); #Neutrophils 4.8 thou/uL (1.40-6.50); %Basophils 0.9 % (0.0-1.0); %Eosinophils 6.9 % (0.0-10.0); %Lymphocytes 24.1 % (21.0-51.0); %Monocytes 7.1 % (0.0-10.0); %Neutrophils 60.9 % (42.0-75.0); Mean Corpuscular HGB CONC 32.9 g/dL (32.0-36.0); Mean Corpuscular Hemoglobin 31.9 pg (27.0-31.0); Mean Platelet Volume 7.4 fL (7.4-10.4); Platelet Count 223 thou/uL (130-400); Red Blood Cell (RBC) Count 2.81 mill/uL (4.20-5.40); White Blood Cell (WBC) Count 7.9 thou/uL (4.8-10.8)
[2019-12-16 05:17] LABS: Anion Gap 15 mmol/L (10-20); BUN (Urea Nitrogen) 39 mg/dL (7.0-18.7); Calc. Creatinine Clearance 29 mL/min (70-130); Calcium 8.6 mg/dL (7.8-10.44); Carbon Dioxide 24 mmol/L (22-29); Chloride 103 mmol/L (98-107); Estimated GFR-MDRD 9; Glucose 132 mg/dL (70-105); Potassium 4.5 mmol/L (3.5-5.1); Sodium 137 mmol/L (136-145)
[2019-12-16] MEDS: Acetaminophen 325 MG TAB PO PRN (06:08)
[2019-12-16] MEDS ORDERED: Bisacodyl 10 MG SUPP PR PRN (08:12)
[2019-12-16] MEDS ORDERED: Heparin 10,000 UNITS/ 10 ML VIAL ONE (09:13)
--- NOTE | 2019-12-16 11:54 | PDOC.CPN ---
- Subjective Date: 12/16/19 Time: 08:00 Interval history: The pt seen and examined. No overnight events. She cont. having chest pain/ discomfort in MS area although she is in bed resting and sleeping; - Objective Allergies/Adverse Reactions: Allergies Allergy/AdvReac Type Severity Reaction Status Date / Time meperidine [From Demerol] Allergy Verified 12/13/19 23:22 codeine AdvReac Verified 11/07/19 23:00 Visit Medications: Current Medications Acetaminophen (Tylenol) 650 mg PO Q4H PRN PRN Reason: Headache/Fever/Mild Pain (1-3) Last Admin: 12/16/19 06:08 Dose: 650 mg Amlodipine Besylate (Norvasc) 2.5 mg PO DAILY [facility] Last Admin: 12/15/19 08:22 Dose: 2.5 mg Aspirin (Ecotrin) 325 mg PO DAILY [facility] Last Admin: 12/15/19 08:23 Dose: 325 mg Atorvastatin Calcium (Lipitor) 40 mg PO HS [facility] Last Admin: 12/15/19 21:09 Dose: 40 mg Bisacodyl (Dulcolax) 10 mg [place] DAILYPRN PRN PRN Reason: Constipation Cephalexin (Keflex) 500 mg PO BID [facility] Last Admin: 12/15/19 21:09 Dose: 500 mg Clopidogrel Bisulfate (Plavix) 75 mg PO DAILY [facility] Last Admin: 12/15/19 08:22 Dose: 75 mg Dextrose/Water (Dextrose 50%) 25 gm SLOW IVP PRN PRN PRN Reason: Hypoglycemia Duloxetine HCl (Cymbalta) 60 mg PO DAILY [facility] Last Admin: 12/15/19 08:23 Dose: 60 mg Famotidine (Pepcid) 20 mg PO QPM [facility] Last Admin: 12/15/19 21:10 Dose: 20 mg Gabapentin (Neurontin) 300 mg PO DAILY [facility] Last Admin: 12/15/19 08:21 Dose: 300 mg Glucagon (Glucagon) 1 mg IM PRN PRN PRN Reason: Hypoglycemia Hydralazine HCl (Apresoline) 50 mg PO TID [facility] Last Admin: 12/15/19 21:09 Dose: 50 mg Hydralazine HCl (Apresoline) 10 mg SLOW IVP Q4H PRN PRN Reason: SBP Greater Than 180 Dextrose/Water (D5w) 1,000 mls @ 0 mls/hr IV .Q0M PRN PRN Reason: Hypoglycemia Promethazine HCl 12.5 mg/ (Sodium Chloride) 50.5 mls @ 202 mls/hr IVPB Q6H PRN PRN Reason: Nausea/Vomiting Last Admin: 12/14/19 04:27 Dose: 50.5 mls Insulin Glargine 60 units/ (Miscellaneous Medication) 0.6 mls @ 0 mls/hr SC [facility] Last Admin: 12/15/19 21:08 Dose: 0.6 mls Insulin Human Regular (Humulin R) 0 units SC .MILD SLIDING SCALE PRN PRN Reason: Mild Correctional Scale Insulin Human Regular (Humulin R) 0 units SC .BEDTIME SLIDING SC PRN PRN Reason: Bedtime Correctional Scale Last Admin: 12/13/19 22:38 Dose: 3 unit Isosorbide Mononitrate (Imdur) 60 mg PO DAILY [facility] Last Admin: 12/15/19 08:23 Dose: 60 mg Lactulose (Lactulose) 20 gm PO TID [facility] Stop: 12/18/19 09:01 Metoprolol Tartrate (Lopressor) 100 mg PO BID [facility] Last Admin: 12/15/19 21:10 Dose: 100 mg Pantoprazole Sodium (Protonix) 40 mg PO [facility] Last Admin: 12/15/19 21:10 Dose: 40 mg Polyethylene Glycol (Miralax) 17 gm PO BID [facility] Last Admin: 12/15/19 21:11 Dose: Not Given Promethazine HCl (Phenergan) 25 mg PO Q6H PRN PRN Reason: Nausea Last Admin: 12/16/19 10:38 Dose: 25 mg Ranolazine (Ranexa) 1,000 mg PO BID [facility] Last Admin: 12/15/19 21:09 Dose: 1,000 mg Senna/Docusate Sodium (Senokot S) 2 tab PO BID [facility] Last Admin: 12/15/19 21:10 Dose: 2 tab Sevelamer Carbonate (Renvela) 800 [facility] Last Admin: 12/15/19 17:16 Dose: 800 mg Sodium Chloride (Flush - Normal Saline) 10 ml IVF PRN PRN PRN Reason: Saline Flush Tramadol HCl (Ultram) 50 mg PO Q6H PRN PRN Reason: Moderate Pain (4-6) Last Admin: 12/16/19 06:04 Dose: 50 mg Vital Signs & Weight: Vital Signs Temp Pulse Resp BP Pulse Ox 12/16/19 03:00 98.0 F 61 16 159/81 H 97 Admit Weight 292 lb Weight 291 lb 12.8 oz - Physical Exam General: alert & oriented x3 HEENT: mucus membranes moist Neck: supple neck Cardiac: regular rate and rhythm, S1/S2 Lungs: clear to auscultation, decreased breath sounds Neuro: cranial nerve 2-12 intact Extremities: no edema - Labs Result Diagrams: 12/16/19 04:31 12/16/19 04:31 Troponin/CKMB Troponin I 0.010 ng/mL (< 0.028) 12/13/19 21:34 - Telemetry Sinus rhythms and dysrhythmias: sinus rhythm - Assessment/Plan Assessment/Plan: 1. CP - Imdur was increased to 60mg qd; on Ranexa 1000mg BID; 2. CAD with s/p LHC on 10/2019 with 50% in LAD, 70% in RCA and 100% in Lt Cx which retrograde filling from the Left - on BBlocker and ASA, Plavix, and Lipitor; not on GADIEL/ARB due to hx of CKD 3. HTN 4. Chronic combined HF - stable with bblocker and HD; not on GADIEL/ARB due to hx of CKD 5. ESRD on dialysis 6. Pain to LUE AV graft site - ABX 7. Chronic nausea - prob due to gastroparesis 8. DM2 - on Lantus & sliding scale 9. Chronic Anemia due to renal insuf 10. Depression 11. Morbid obesity BMI 41.3 12. Sleep Apnea MAR reviewed * s/p LHC on 10/2019 with 50% in LAD, 70% in RCA and 100% in Lt Cx which retrograde filling from the Left * Echo in 10/2019 with EF 50-55% (40-45% in 09/2019), grade I dd, hypokinetic lateral wall, trace MR and WA, and mild TR Pt. seen and eval. by me. She is still c/o'ing of pain and nausea. The nausea was worse during dialysis, I will change to IV protonix and see if the pain is relieved. If so, she may need a GI consult. Her EKG does not indicate ischemia , Troponin I is negative. Chest clear. RRR, no edema.
[2019-12-16] MEDS: Metoprolol Tartrate 100 MG TAB PO SCH ×2 (12:45→21:46)
[2019-12-16] MEDS: Senokot S 8.6-50 MG TAB PO SCH ×2 (12:45→21:47)
[2019-12-16] MEDS: Cephalexin 250 MG CAP PO SCH ×2 (12:45→21:47)
[2019-12-16] MEDS: Polyethylene Glycol 3350 17 GM Packet PO SCH ×2 (12:45→21:46)
[2019-12-16] MEDS: Sevelamer Carbonate 800 MG TAB PO SCH ×3 (12:55→16:12)
[2019-12-16] MEDS: hydrALAZINE 25 MG TAB PO SCH ×3 (12:55→21:47)
[2019-12-16] MEDS ORDERED: Promethazine HCl 12.5 MG in Sodium Chloride 0.9% 50 ML IVPB SCH (13:30)
--- NOTE | 2019-12-16 13:35 | PDOC.HOSPP ---
- Subjective Encounter Date: 12/16/19 Encounter Time: 08:00 Subjective: Patient seen and examined for CP during dialysis. Had CP earlier today. No other complaints. No overnight events - Objective Vital Signs & Weight: Vital Signs (12 hours) Temp Pulse Resp BP BP Pulse Ox 12/16/19 12:55 84 12/16/19 11:32 97.4 F L 84 16 116/60 95 12/16/19 03:00 98.0 F 61 16 159/81 H 97 Weight Admit Weight 292 lb Weight 291 lb 12.8 oz I&O: 12/15/19 12/16/19 12/17/19 06:59 06:59 06:59 Intake Total 720 1200 Output Total 1100 Balance -380 1200 Result Diagrams: 12/16/19 04:31 12/16/19 04:31 Additional Labs: Accuchecks 12/16/19 12/16/19 12/15/19 11:35 06:10 21:01 POC Glucose 118 H 126 H 214 H 12/15/19 16:35 POC Glucose 162 H EKG Reviewed by me: Yes (Tele SR) Hospitalist ROS - Review of Systems Respiratory: denies: cough, dry, shortness of breath, hemoptysis, SOB with excertion, pleuritic pain, sputum, wheezing, other Cardiovascular: reports: chest pain. denies: palpitations, orthopnea, paroxysmal noc. dyspnea, edema, light headedness, other Gastrointestinal: denies: nausea, vomiting, abdominal pain, diarrhea, constipation, melena, hematochezia, other - Medication Medications: Active Medications Generic Name Dose Route Start Last Admin Trade Name Matq PRN Reason Stop Dose Admin Acetaminophen 650 mg 12/13/19 18:57 12/16/19 06:08 Tylenol PO 650 mg Q4H PRN Administration Headache/Fever/Mild Pain (1-3) Amlodipine Besylate 2.5 mg 12/15/19 09:00 12/15/19 08:22 Norvasc PO 2.5 mg DAILY PANCHO Administration Aspirin 325 mg 12/14/19 09:00 12/15/19 08:23 Ecotrin PO 325 mg DAILY PANCHO Administration Atorvastatin Calcium 40 mg 12/14/19 21:00 12/15/19 21:09 Lipitor PO 40 mg HS PANCHO Administration Cephalexin 500 mg 12/14/19 21:00 12/15/19 21:09 Keflex PO 500 mg BID PANCHO Administration Clopidogrel Bisulfate 75 mg 12/14/19 09:00 12/15/19 08:22 Plavix PO 75 mg DAILY PANCHO Administration Duloxetine HCl 60 mg 12/14/19 09:00 12/15/19 08:23 Cymbalta PO 60 mg DAILY PANCHO Administration Famotidine 20 mg 12/13/19 21:00 12/15/19 21:10 Pepcid PO 20 mg QPM PANCHO Administration Gabapentin 300 mg 12/14/19 09:00 12/15/19 08:21 Neurontin PO 300 mg DAILY PANCHO Administration Hydralazine HCl 50 mg 12/14/19 09:00 12/16/19 12:55 Apresoline PO Not Given TID PANCHO Promethazine HCl 12.5 mg/ 50.5 mls @ 202 mls/hr 12/13/19 19:01 12/14/19 04:27 Sodium Chloride IVPB 50.5 mls Q6H PRN Administration Nausea/Vomiting Insulin Glargine 60 units/ 0.6 mls @ 0 mls/hr 12/14/19 21:00 12/15/19 21:08 Miscellaneous Medication SC 0.6 mls HS PANCHO Administration Insulin Human Regular 0 units 12/13/19 19:00 12/13/19 22:38 Humulin R SC 3 unit .BEDTIME SLIDING SC PRN Administration Bedtime Correctional Scale Isosorbide Mononitrate 60 mg 12/15/19 09:00 12/15/19 08:23 Imdur PO 60 mg DAILY PANCHO Administration Lactulose 20 gm 12/16/19 09:00 12/16/19 12:55 Lactulose PO 12/18/19 09:01 Not Given TID PANCHO Metoprolol Tartrate 100 mg 12/14/19 21:00 12/15/19 21:10 Lopressor PO 100 mg BID PANCHO Administration Pantoprazole Sodium 40 mg 12/14/19 21:00 12/15/19 21:10 Protonix PO 40 mg HS PANCHO Administration Polyethylene Glycol 17 gm 12/13/19 21:00 12/15/19 21:11 Miralax PO Not Given BID PANCHO Promethazine HCl 25 mg 12/14/19 10:14 12/16/19 10:38 Phenergan PO 25 mg Q6H PRN Administration Nausea Ranolazine 1,000 mg 12/14/19 21:00 12/15/19 21:09 Ranexa PO 1,000 mg BID PANCHO Administration Senna/Docusate Sodium 2 tab 12/15/19 21:00 12/15/19 21:10 Senokot S PO 2 tab BID PANCHO Administration Sevelamer Carbonate 800 mg 12/14/19 08:00 12/16/19 12:55 Renvela PO Not Given TID-[facility] Tramadol HCl 50 mg 12/14/19 10:16 12/16/19 06:04 Ultram PO 50 mg Q6H PRN Administration Moderate Pain (4-6) - Exam General Appearance: NAD Neck: supple, no JVD Heart: no gallops, no rubs Respiratory: no wheezes, no ronchi Gastrointestinal: non-tender, non-distended, normal bowel sounds Extremities: no cyanosis, no clubbing Extremities - other findings: LUE swelling improving Hosp A/P - Plan CP/near syncope HTN CAD ESRD on dialysis LUE pain/swelling Chronic nausea - prob due to gastroparesis DM2 - on Lantus & sliding scale Chronic Anemia due to renal insuf Depression Chronic diastolic HF - No GADIEL/ARB due to CKD Morbid obesity BMI 41.3 PLAN: Cardiology following Cont ASA/Plavix Cont Metoprolol/Ranexa/Imdur/Amlodipine Dialysis per Nephro Home O2 eval at discharge AM labs Cont other meds as above
[2019-12-16] MEDS ORDERED: Pantoprazole 40 MG VIAL IVP SCH ×2 (14:06→14:30)
[2019-12-16] MEDS: Morphine 2 MG/ML SYRINGE SLOW IVP PRN ×2 (16:05→21:55)
[2019-12-16] MEDS: Amlodipine 5 MG TAB PO SCH (16:10)
[2019-12-16] MEDS: Aspirin 325 mg Enteric Coated Tablet PO SCH (16:11)
[2019-12-16] MEDS: Gabapentin 300 MG CAP PO SCH (16:11)
[2019-12-16] MEDS: Clopidogrel Bisulfate 75 MG TAB PO SCH (16:11)
[2019-12-16] MEDS: DULoxetine 60 MG CAP PO SCH (16:11)
[2019-12-16] MEDS: Pantoprazole 40 MG VIAL IVP SCH (21:23)
[2019-12-16] MEDS: Insulin Glargine 60 UNITS in Pre-Filled Syringe SC SCH (21:46)
[2019-12-16] MEDS: Saccharomyces boulardii 250 MG CAP PO SCH (21:46)
[2019-12-16] MEDS: Famotidine 20 MG TAB PO SCH (21:46)
[2019-12-16] MEDS: Atorvastatin Calcium 40 MG TAB PO SCH (21:46)
--- NOTE | 2019-12-17 05:40 | PRG ---
DATE OF SERVICE: 12/16/2019 SERVICE: Nephrology. SUBJECTIVE: A 49-year-old female with known history of end-stage renal disease from presumed diabetic nephropathy, admitted due to recurrent chest pain associated with shortness of breath and lightheadedness. The patient reported nausea earlier on. She has known history of diabetic gastroparesis. There is no associated fever. Left upper limb pain, minimal erythema and edema are resolving. She remained afebrile. OBJECTIVE: VITAL SIGNS: Temperature 97.4, pulse 84, respiratory rate 16, SpO2 of 95% on room air, blood pressure is 116/60. GENERAL: Obese female, in no distress. Afebrile. Anicteric. Acyanotic. HEENT: Normocephalic, atraumatic. Oral mucosa is moist. NECK: Supple with no JVD. CARDIOVASCULAR: Regular rhythm and rate with normal heart sounds 1 and 2. RESPIRATORY: Good air entry bilaterally with no obvious crackle, rhonchi, or use of accessory muscles. GASTROINTESTINAL: Full, soft, nontender, and nondistended with normal bowel sounds. EXTREMITIES: Trace left upper extremity edema with minimal induration at the AV fistula creation site. Trace blanching erythema is noted at this time. No obvious essential warmth or tenderness appreciated. Left lower extremity BKA noted. Other extremities are grossly normal, looking atraumatic with no edema or erythema. CENTRAL NERVOUS SYSTEM: Conscious, alert, and oriented x3 with appropriate mental status. Cranial nerves 2 through 12 are grossly intact. DIAGNOSTIC DATA: CBC showed WBC count of 7.9, hemoglobin of 9.0, platelet of 223. BMP showed sodium 137, potassium 4.5, chloride 103, CO2 of 24, BUN 39, creatinine 4.92, glucose 132, calcium 8.6. ASSESSMENT: 1. End-stage renal disease, on hemodialysis Monday, Monday, and Monday. The patient had hemodialysis yesterday after contrast study. 2. Volume status: Euvolemic. 3. Hypertension: Control is acceptable. 4. Recurrent chest pain: Evaluation and treatment as per Cardiology. 5. Left upper extremity cellulitis, on treatment. PLAN: We will dialyze the patient today in line with outpatient dialysis schedule. We will continue on antibiotics for presumed cellulitis. The patient can be discharged from Nephrology point of view once cleared by Cardiology. Further treatment to follow depending on hospital course. Job ID: [id number]
[2019-12-17] MEDS: Promethazine 25 MG TAB PO PRN (06:24)
[2019-12-17] MEDS: Morphine 2 MG/ML SYRINGE SLOW IVP PRN ×3 (06:28→21:52)
[2019-12-17] MEDS: Sevelamer Carbonate 800 MG TAB PO SCH ×3 (09:15→18:09)
[2019-12-17] MEDS: Amlodipine 5 MG TAB PO SCH (09:15)
[2019-12-17] MEDS: Cephalexin 250 MG CAP PO SCH ×2 (09:16→20:40)
[2019-12-17] MEDS: DULoxetine 60 MG CAP PO SCH (09:16)
[2019-12-17] MEDS: Aspirin 325 mg Enteric Coated Tablet PO SCH (09:16)
[2019-12-17] MEDS: Gabapentin 300 MG CAP PO SCH (09:16)
[2019-12-17] MEDS: Clopidogrel Bisulfate 75 MG TAB PO SCH (09:16)
[2019-12-17] MEDS: Senokot S 8.6-50 MG TAB PO SCH ×2 (09:17→20:41)
[2019-12-17] MEDS: hydrALAZINE 25 MG TAB PO SCH ×3 (09:17→20:41)
[2019-12-17] MEDS: Metoprolol Tartrate 100 MG TAB PO SCH ×2 (09:17→20:41)
[2019-12-17] MEDS: Polyethylene Glycol 3350 17 GM Packet PO SCH ×2 (09:17→21:21)
[2019-12-17] MEDS: Pantoprazole 40 MG VIAL IVP SCH ×2 (09:17→20:40)
[2019-12-17] MEDS: traMADol HCl 50 MG TAB PO PRN (10:47)
--- NOTE | 2019-12-17 11:32 | CON ---
DATE OF CONSULTATION: 12/17/2019 REQUESTING PHYSICIAN: Dr. Agiurre. REASON FOR CONSULTATION: Nausea and chest pain. HISTORY OF PRESENT ILLNESS: Damaris Wilkes is a 49-year-old woman with an unfortunate history of morbid obesity, diabetes with neuropathy, and end-stage renal disease, on dialysis. She also has a history of coronary artery disease. She has undergone recent cardiac evaluation after a stress test demonstrated lateral ischemia. In October, cardiac catheterization demonstrated occlusion of the circumflex artery and this was not amenable to percutaneous intervention. The patient has been treated with maximal medical therapy. She is classified as grade 1 diastolic dysfunction. She reports that for several months now, she has had nausea, multiple times on a daily basis. This is often severe, although vomiting has been rare. This is not associated with any abdominal pain, but in addition to the nausea, she has been having chest pain. This is also coming on episodically both at rest and during exertion. She was hospitalized here earlier this month with anasarca, responded well to diuretics. She was admitted to the hospital again 4 days ago on 12/13/2019, complaining of chest pain and dyspnea on exertion as well as presyncope. She has been evaluated by Cardiology. Her lung imaging has been clear, negative for PE or any significant infiltrates. She has not had any fever. She has complained of continued nausea through this time and had one episode of nonbloody emesis yesterday. Acute coronary syndrome has been ruled out with negative troponins. Cardiology has evaluated her and there is some question as to whether her current chest pain and nausea symptoms are in fact cardiac related and our evaluation was requested. She has been started on IV pantoprazole yesterday, without significant improvement in nausea today. She also does report some issues recently with constipation, responsive to MiraLAX and senna. She has never undergone EGD or colonoscopy. She says prior physicians told her she may have gastroparesis. Notably, she endorses some intermittent dysphagia and odynophagia, when eating solids or liquids. She reports a 30-pound weight loss over the past 3 months. REVIEW OF SYSTEMS: Full review of systems including constitutional, head, eyes, ears, nose, throat, GI, , cardiovascular, respiratory, musculoskeletal, neurologic systems is negative except as noted in the HPI. PAST MEDICAL HISTORY: Coronary artery disease; end-stage renal disease, on dialysis Monday, Monday, Monday; CHF with diastolic dysfunction; diabetes type 2; possible gastroparesis; diabetic neuropathy; hyperlipidemia; hypertension; fibromyalgia; appendectomy; cholecystectomy; hysterectomy; ; left BKA; depression and anxiety. SOCIAL HISTORY: She is a former smoker. No alcohol or drug use. FAMILY HISTORY: Negative for GI malignancy. She does have some distant relatives with Crohn disease. ALLERGIES: DEMEROL AND CODEINE. MEDICATIONS: 1. Tylenol p.r.n. 2. Norvasc. 3. Aspirin 325 mg daily. 4. Lipitor. 5. Keflex. 6. Plavix 75 mg daily. 7. Cymbalta. 8. Gabapentin. 9. Hydralazine. 10. Sliding scale insulin. 11. Imdur. 12. Lactulose. 13. Metoprolol. 14. Morphine. 15. Protonix 40 mg IV q.12 hours, started yesterday. 16. MiraLAX 17 g p.o. b.i.d. 17. Promethazine. 18. Ranexa. 19. Florastor. 20. Senokot. 21. Renvela. 22. Ultram. PHYSICAL EXAMINATION: VITAL SIGNS: Temperature 97.9, pulse 77, blood pressure 131/63, 95% oxygen saturation on room air. GENERAL: A 49-year-old woman, sitting up in bed comfortably, in no distress. SKIN: No jaundice, no rashes that were palpable. EYES: No scleral icterus. Extraocular movements intact. ENT: Mucous membranes moist. No oral lesions. LYMPH: No submandibular or supraclavicular lymphadenopathy. Thyroid nontender to palpation. HEART: Regular rate and rhythm. LUNGS: Clear to auscultation bilaterally. ABDOMEN: Bowel sounds present. Soft, nontender to palpation throughout. EXTREMITIES: No peripheral edema. She is status post left BKA. NEUROLOGIC: Cranial nerves 2 through 12 intact bilaterally. No focal deficits. LABORATORY STUDIES: Hemoglobin 9.0, WBC 7.9, and platelets 223. Sodium 137, potassium 4.5, BUN 39, creatinine 4.92. Troponin negative. Hepatitis B and C serologies negative. Calcium 8.6. Troponin negative x3 on admission. IMAGING STUDIES: CT angiogram of the chest demonstrated clear lung galvan, it was a suboptimal study, but there was no pulmonary embolus demonstrated. She has mild cardiomegaly. ASSESSMENT AND PLAN: 1. Chest pain, atypical. 2. Dysphagia and odynophagia. 3. Weight loss. 4. Chronic nausea. She does have significant known coronary artery disease, not amenable to percutaneous intervention with occlusion of the left circumflex, but chest pain and nausea symptoms persist despite maximal medical therapy. Cardiology has requested our evaluation. Consider also the possibility of erosive esophagitis, peptic ulcer disease, or Eusebia esophagitis. She may indeed have gastroparesis as well. The more concerning feature here is the odynophagia and weight loss component. Given her need for repeated hospitalizations with chest pain as well as the diagnostic uncertainty and significant weight loss in recent months, I do feel that upper endoscopic investigation is warranted. To my mind, this would be preferable to, for instance, empiric therapy with fluconazole for suspicion of Eusebia esophagitis, particularly given potential for multiple medication interactions. I think her likelihood of bounceback to the hospital or continued significant weight loss within the next 30 days is high if we do not proceed with further diagnostics. So, we are going to try to schedule her for diagnostic upper endoscopy tomorrow. This is what the patient desires. Of course, this will be subject to Committee approval, which we will await. If the Committee does not allow the procedure to go forward, then I would recommend continuing with high-dose acid suppression. Thank you for the consultation. Please call anytime with questions or concerns. Job ID: [id number]
[2019-12-17] MEDS: Promethazine HCl 12.5 MG in Sodium Chloride 0.9% 50 ML IVPB PRN ×2 (14:10→22:02)
--- NOTE | 2019-12-17 14:56 | PDOC.CPN ---
- Subjective Date: 12/17/19 Time: 08:00 Interval history: The pt seen and examined. No overnight events. No cardiac complaints. - Objective Allergies/Adverse Reactions: Allergies Allergy/AdvReac Type Severity Reaction Status Date / Time meperidine [From Demerol] Allergy Verified 12/13/19 23:22 codeine AdvReac Verified 11/07/19 23:00 Visit Medications: Current Medications Acetaminophen (Tylenol) 650 mg PO Q4H PRN PRN Reason: Headache/Fever/Mild Pain (1-3) Last Admin: 12/16/19 06:08 Dose: 650 mg Amlodipine Besylate (Norvasc) 2.5 mg PO DAILY [facility] Last Admin: 12/17/19 09:15 Dose: 2.5 mg Aspirin (Ecotrin) 325 mg PO DAILY [facility] Last Admin: 12/17/19 09:16 Dose: 325 mg Atorvastatin Calcium (Lipitor) 40 mg PO HS [facility] Last Admin: 12/16/19 21:46 Dose: 40 mg Bisacodyl (Dulcolax) 10 mg DE DAILYPRN PRN PRN Reason: Constipation Cephalexin (Keflex) 500 mg PO BID [facility] Last Admin: 12/17/19 09:16 Dose: 500 mg Clopidogrel Bisulfate (Plavix) 75 mg PO DAILY [facility] Last Admin: 12/17/19 09:16 Dose: 75 mg Dextrose/Water (Dextrose 50%) 25 gm SLOW IVP PRN PRN PRN Reason: Hypoglycemia Duloxetine HCl (Cymbalta) 60 mg PO DAILY [facility] Last Admin: 12/17/19 09:16 Dose: 60 mg Gabapentin (Neurontin) 300 mg PO DAILY [facility] Last Admin: 12/17/19 09:16 Dose: 300 mg Glucagon (Glucagon) 1 mg IM PRN PRN PRN Reason: Hypoglycemia Hydralazine HCl (Apresoline) 50 mg PO TID [facility] Last Admin: 12/17/19 14:09 Dose: 50 mg Hydralazine HCl (Apresoline) 10 mg SLOW IVP Q4H PRN PRN Reason: SBP Greater Than 180 Dextrose/Water (D5w) 1,000 mls @ 0 mls/hr IV .Q0M PRN PRN Reason: Hypoglycemia Promethazine HCl 12.5 mg/ (Sodium Chloride) 50.5 mls @ 202 mls/hr IVPB Q6H PRN PRN Reason: Nausea/Vomiting Last Admin: 12/17/19 14:10 Dose: 50.5 mls Insulin Glargine 60 units/ (Miscellaneous Medication) 0.6 mls @ 0 mls/hr SC [facility] Last Admin: 12/16/19 21:46 Dose: 0.6 mls Insulin Human Regular (Humulin R) 0 units SC .MILD SLIDING SCALE PRN PRN Reason: Mild Correctional Scale Last Admin: 12/17/19 14:21 Dose: 3 unit Insulin Human Regular (Humulin R) 0 units SC .BEDTIME SLIDING SC PRN PRN Reason: Bedtime Correctional Scale Last Admin: 12/13/19 22:38 Dose: 3 unit Isosorbide Mononitrate (Imdur) 60 mg PO DAILY [facility] Last Admin: 12/17/19 09:17 Dose: 60 mg Lactulose (Lactulose) 10 gm PO DAILYPRN PRN PRN Reason: Constipation Metoprolol Tartrate (Lopressor) 100 mg PO BID [facility] Last Admin: 12/17/19 09:17 Dose: 100 mg Morphine Sulfate (Morphine) 2 mg SLOW IVP Q6H PRN PRN Reason: Pain Stop: 12/18/19 14:27 Pantoprazole Sodium (Protonix) 40 mg IVP Q12HR [facility] Last Admin: 12/17/19 09:17 Dose: 40 mg Polyethylene Glycol (Miralax) 17 gm PO BID [facility] Last Admin: 12/17/19 09:17 Dose: 17 gm Promethazine HCl (Phenergan) 25 mg PO Q6H PRN PRN Reason: Nausea Last Admin: 12/17/19 06:24 Dose: 25 mg Ranolazine (Ranexa) 1,000 mg PO BID [facility] Last Admin: 12/17/19 09:17 Dose: 1,000 mg Saccharomyces Boulardii (Florastor) 250 mg PO [facility] Last Admin: 12/16/19 21:46 Dose: 250 mg Senna/Docusate Sodium (Senokot S) 2 tab PO BID [facility] Last Admin: 12/17/19 09:17 Dose: 2 tab Sevelamer Carbonate (Renvela) 800 mg PO TID-[facility] Last Admin: 12/17/19 14:09 Dose: 800 mg Sodium Chloride (Flush - Normal Saline) 10 ml IVF PRN PRN PRN Reason: Saline Flush Last Admin: 12/16/19 21:49 Dose: 10 ml Tramadol HCl (Ultram) 50 mg PO Q6H PRN PRN Reason: Moderate Pain (4-6) Last Admin: 12/17/19 10:47 Dose: 50 mg Vital Signs & Weight: Vital Signs Temp Pulse Resp BP BP BP Pulse Ox 12/17/19 14:09 71 124/59 L 12/17/19 12:00 98.2 F 71 18 129/70 96 12/17/19 09:17 77 131/63 12/17/19 09:15 77 131/63 12/17/19 07:16 97.9 F 77 20 131/63 95 12/17/19 04:28 98.1 F 79 15 141/71 H 96 Admit Weight 292 lb Weight 281 lb 15.539 oz - Physical Exam General: alert & oriented x3 HEENT: mucus membranes moist Neck: supple neck Cardiac: regular rate and rhythm, S1/S2 Lungs: clear to auscultation - Labs Result Diagrams: 12/16/19 04:31 12/16/19 04:31 Troponin/CKMB Troponin I 0.010 ng/mL (< 0.028) 12/13/19 21:34 - Telemetry Sinus rhythms and dysrhythmias: sinus rhythm - Assessment/Plan Assessment/Plan: 1. CP - Her EKG does not indicate ischemia , Troponin I is negative. On Imdur 60 mg qd; on Ranexa 1000mg BID;GI consult was done today and the pt will undergo EGD tomorrow by Case 2. CAD with s/p LHC on 10/2019 with 50% in LAD, 70% in RCA and 100% in Lt Cx which retrograde filling from the Left - on BBlocker and ASA, Plavix, and Lipitor; not on GADIEL/ARB due to hx of CKD 3. HTN - stable 4. Chronic combined HF - stable with bblocker and HD; not on GADIEL/ARB due to hx of CKD 5. ESRD on dialysis 6. Pain to LUE AV graft site - ABX 7. Chronic nausea - prob due to gastroparesis 8. DM2 - on Lantus & sliding scale 9. Chronic Anemia due to renal insuf 10. Depression 11. Morbid obesity BMI 41.3 12. Sleep Apnea 13. Chronic nausea - On Protonix; GI consult was done today and the pt will undergo EGD tomorrow by Dr Vipul RAY reviewed * s/p LHC on 10/2019 with 50% in LAD, 70% in RCA and 100% in Lt Cx which retrograde filling from the Left * Echo in 10/2019 with EF 50-55% (40-45% in 09/2019), grade I dd, hypokinetic lateral wall, trace MR and DE, and mild TR Pt. seen and eval. by me. I agree with the A/P by the [facility]. Await GI eval. If no indication for chest pain then may need to consider PTCA to LAD+/- RCA.. chest clear. RRR. No edema.
--- NOTE | 2019-12-17 18:20 | PDOC.HOSPP ---
- Subjective Encounter Date: 12/17/19 Encounter Time: 09:30 Subjective: Patient seen and examined for CP. Persistent nausea. No other complaints. No overnight events - Objective Vital Signs & Weight: Vital Signs (12 hours) Temp Pulse Resp BP BP Pulse Ox 12/17/19 15:18 97.6 F 76 18 107/55 L 97 12/17/19 14:09 71 124/59 L 12/17/19 12:00 98.2 F 71 18 129/70 96 12/17/19 09:17 77 131/63 12/17/19 09:15 77 131/63 12/17/19 07:16 97.9 F 77 20 131/63 95 Weight Admit Weight 292 lb Weight 281 lb 15.539 oz I&O: 12/16/19 12/17/19 12/18/19 06:59 06:59 06:59 Intake Total 1200 720 Output Total 0 Balance 1200 720 Result Diagrams: 12/16/19 04:31 12/16/19 04:31 Additional Labs: Accuchecks 12/17/19 12/17/19 12/17/19 16:55 10:28 04:42 POC Glucose 145 H 201 H 153 H 12/16/19 20:26 POC Glucose 185 H EKG Reviewed by me: Yes (Tele SR) Hospitalist ROS - Review of Systems Respiratory: denies: cough, dry, shortness of breath, hemoptysis, SOB with excertion, pleuritic pain, sputum, wheezing, other Cardiovascular: denies: chest pain, palpitations, orthopnea, paroxysmal noc. dyspnea, edema, light headedness, other Gastrointestinal: denies: nausea, vomiting, abdominal pain, diarrhea, constipation, melena, hematochezia, other - Medication Medications: Active Medications Generic Name Dose Route Start Last Admin Trade Name Freq PRN Reason Stop Dose Admin Acetaminophen 650 mg 12/13/19 18:57 12/16/19 06:08 Tylenol PO 650 mg Q4H PRN Administration Headache/Fever/Mild Pain (1-3) Amlodipine Besylate 2.5 mg 12/15/19 09:00 12/17/19 09:15 Norvasc PO 2.5 mg DAILY [facility] Administration Aspirin 325 mg 12/14/19 09:00 12/17/19 09:16 Ecotrin PO 325 mg DAILY [facility] Administration Atorvastatin Calcium 40 mg 12/14/19 21:00 12/16/19 21:46 Lipitor PO 40 mg HS [facility] Administration Cephalexin 500 mg 12/14/19 21:00 12/17/19 09:16 Keflex PO 500 mg BID [facility] Administration Clopidogrel Bisulfate 75 mg 12/14/19 09:00 12/17/19 09:16 Plavix PO 75 mg DAILY [facility] Administration Duloxetine HCl 60 mg 12/14/19 09:00 12/17/19 09:16 Cymbalta PO 60 mg DAILY [facility] Administration Gabapentin 300 mg 12/14/19 09:00 12/17/19 09:16 Neurontin PO 300 mg DAILY [facility] Administration Hydralazine HCl 50 mg 12/14/19 09:00 12/17/19 14:09 Apresoline PO 50 mg TID [facility] Administration Promethazine HCl 12.5 mg/ 50.5 mls @ 202 mls/hr 12/13/19 19:01 12/17/19 14:10 Sodium Chloride IVPB 50.5 mls Q6H PRN Administration Nausea/Vomiting Insulin Glargine 60 units/ 0.6 mls @ 0 mls/hr 12/14/19 21:00 12/16/19 21:46 Miscellaneous Medication SC 0.6 mls HS [facility] Administration Insulin Human Regular 0 units 12/13/19 19:00 12/17/19 14:21 Humulin R SC 3 unit .MILD SLIDING SCALE PRN Administration Mild Correctional Scale Insulin Human Regular 0 units 12/13/19 19:00 12/13/19 22:38 Humulin R SC 3 unit .BEDTIME SLIDING SC PRN Administration Bedtime Correctional Scale Isosorbide Mononitrate 60 mg 12/15/19 09:00 12/17/19 09:17 Imdur PO 60 mg DAILY [facility] Administration Metoprolol Tartrate 100 mg 12/14/19 21:00 12/17/19 09:17 Lopressor PO 100 mg BID [facility] Administration Pantoprazole Sodium 40 mg 12/16/19 21:00 12/17/19 09:17 Protonix IVP 40 mg Q12HR [facility] Administration Polyethylene Glycol 17 gm 12/13/19 21:00 12/17/19 09:17 Miralax PO 17 gm BID [facility] Administration Promethazine HCl 25 mg 12/14/19 10:14 12/17/19 06:24 Phenergan PO 25 mg Q6H PRN Administration Nausea Ranolazine 1,000 mg 12/14/19 21:00 12/17/19 09:17 Ranexa PO 1,000 mg BID [facility] Administration Saccharomyces Boulardii 250 mg 12/16/19 21:00 12/16/19 21:46 Florastor PO 250 mg HS [facility] Administration Senna/Docusate Sodium 2 tab 12/15/19 21:00 12/17/19 09:17 Senokot S PO 2 tab BID [facility] Administration Sevelamer Carbonate 800 mg 12/14/19 08:00 12/17/19 18:09 Renvela PO 800 mg TID-[facility] Administration Sodium Chloride 10 ml 12/13/19 18:57 12/16/19 21:49 Flush - Normal Saline IVF 10 ml PRN PRN Administration Saline Flush Tramadol HCl 50 mg 12/14/19 10:16 12/17/19 10:47 Ultram PO 50 mg Q6H PRN Administration Moderate Pain (4-6) - Exam General Appearance: NAD Heart: RRR, no gallops Respiratory: no wheezes, no ronchi Gastrointestinal: non-tender, non-distended, normal bowel sounds Extremities: no cyanosis Neurological: no new deficit Hosp A/P - Plan DVT proph w/SCDs CP/near syncope HTN CAD ESRD on dialysis LUE pain/swelling Chronic nausea - prob due to gastroparesis, r/o PUD, esophagitis DM2 - on Lantus & sliding scale Chronic Anemia due to renal insuf Depression Chronic diastolic HF - No GADIEL/ARB due to CKD Morbid obesity BMI 41.3 PLAN: EGD in AM Cont IV Protonix Cont PRN antiemetics Cardiology following Cont ASA/Plavix/Ranexa/Imdur Cont Metoprolol/Amlodipine Dialysis per Nephro Will probably need home O2 at discharge Cont other meds as above
[2019-12-17] MEDS: Saccharomyces boulardii 250 MG CAP PO SCH (20:40)
[2019-12-17] MEDS: Atorvastatin Calcium 40 MG TAB PO SCH (20:41)
[2019-12-17] MEDS: Insulin Glargine 60 UNITS in Pre-Filled Syringe SC SCH (21:19)
[2019-12-18 05:24] LABS: #Basophils 0.1 thou/uL (0.0-0.2); #Eosinphils 0.7 thou/uL (0.0-0.7); #Lymphocytes 2.5 thou/uL (1.20-3.40); #Monocytes 0.7 thou/uL (0.11-0.59); #Neutrophils 4.8 thou/uL (1.40-6.50); %Basophils 0.8 % (0.0-1.0); %Eosinophils 7.8 % (0.0-10.0); %Lymphocytes 28.4 % (21.0-51.0); %Monocytes 7.5 % (0.0-10.0); %Neutrophils 55.6 % (42.0-75.0); Hemoglobin 9.1 g/dL (12.0-16.0); Mean Corpuscular HGB CONC 32.5 g/dL (32.0-36.0); Mean Corpuscular Hemoglobin 31.2 pg (27.0-31.0); Mean Corpuscular Volume 96.2 fL (78.0-98.0); Mean Platelet Volume 7.5 fL (7.4-10.4); Platelet Count 220 thou/uL (130-400); Red Blood Cell (RBC) Count 2.91 mill/uL (4.20-5.40); White Blood Cell (WBC) Count 8.7 thou/uL (4.8-10.8)
[2019-12-18 05:51] LABS: ALT (SGPT) 9 U/L (8-55); AST (SGOT) 13 U/L (5-34); Albumin 3.5 g/dL (3.5-5.0); Alkaline Phosphatase 85 U/L (40-110); Anion Gap 12 mmol/L (10-20); BUN (Urea Nitrogen) 35 mg/dL (7.0-18.7); Bilirubin, Total 0.3 mg/dL (0.2-1.2); Calc. Creatinine Clearance 26 mL/min (70-130); Calcium 8.9 mg/dL (7.8-10.44); Carbon Dioxide 30 mmol/L (22-29); Chloride 102 mmol/L (98-107); Estimated GFR-MDRD 9; Globulin 3.3 g/dL (2.4-3.5); Glucose 107 mg/dL (70-105); Potassium 4.4 mmol/L (3.5-5.1); Protein, Total 6.8 g/dL (6.0-8.3); Sodium 140 mmol/L (136-145)
[2019-12-18] MEDS: Morphine 2 MG/ML SYRINGE SLOW IVP PRN (05:51)
[2019-12-18] MEDS: Promethazine HCl 12.5 MG in Sodium Chloride 0.9% 50 ML IVPB PRN (05:59)
[2019-12-18] MEDS ORDERED: Lidocaine 4% Topical Sol 50 ML BOT ONE (06:50)
[2019-12-18] MEDS ORDERED: Ketamine 50 MG/ML (10ML VIAL) ONE (08:29)
[2019-12-18] MEDS ORDERED: Midazolam HCl 2 mg/2 ml Vial ONE (08:40)
[2019-12-18] MEDS ORDERED: PROPOFOL 200 MG/20 ML VIAL ONE (08:50)
[2019-12-18] MEDS: DULoxetine 60 MG CAP PO SCH (08:53)
[2019-12-18] MEDS: Amlodipine 5 MG TAB PO SCH (08:53)
[2019-12-18] MEDS: Aspirin 325 mg Enteric Coated Tablet PO SCH (08:53)
[2019-12-18] MEDS: Gabapentin 300 MG CAP PO SCH (08:53)
[2019-12-18] MEDS: Sevelamer Carbonate 800 MG TAB PO SCH ×3 (08:53→17:13)
[2019-12-18] MEDS: Pantoprazole 40 MG VIAL IVP SCH ×2 (08:54→22:52)
[2019-12-18] MEDS: Senokot S 8.6-50 MG TAB PO SCH (08:54)
[2019-12-18] MEDS: Metoprolol Tartrate 100 MG TAB PO SCH ×2 (08:54→22:51)
[2019-12-18] MEDS: hydrALAZINE 25 MG TAB PO SCH ×3 (08:54→22:50)
[2019-12-18] MEDS: Polyethylene Glycol 3350 17 GM Packet PO SCH ×2 (08:54→23:20)
[2019-12-18] MEDS ORDERED: Promethazine HCl 25 MG/ML VIAL SLOW IVP PRN (09:19)
[2019-12-18] MEDS ORDERED: Promethazine HCl 25 MG/ML VIAL IM PRN (09:19)
[2019-12-18] MEDS ORDERED: Ondansetron HCl/PF 4 MG/2 ML Vial IVP PRN (09:19)
[2019-12-18] MEDS ORDERED: Senokot S 8.6-50 MG TAB PO PRN (09:27)
[2019-12-18] MEDS: Cephalexin 250 MG CAP PO SCH ×2 (09:37→22:50)
[2019-12-18] MEDS: Clopidogrel Bisulfate 75 MG TAB PO SCH (09:37)
--- NOTE | 2019-12-18 09:48 | OP ---
DATE OF PROCEDURE: 12/18/2019 PROCEDURE PERFORMED: Esophagogastroduodenoscopy with biopsy. INDICATIONS FOR PROCEDURE: Dysphagia, odynophagia, nausea and vomiting, atypical chest pain. DESCRIPTION OF PROCEDURE: After the risks and benefits of the procedure were explained to the patient including risks of bleeding, infection, perforation, reactions to anesthesia, aspiration and/or pain, informed consent was obtained. The patient was then taken to the endoscopy suite, where she was placed in the left lateral decubitus position, followed by deep sedation via ketamine and anesthesia support. Once adequate sedation was achieved, the standard gastroscope was introduced into the mouth with intubation of the esophagus, stomach, and the proximal small intestines with the findings listed below. The patient tolerated the procedure well with no immediate perioperative complications. Upon conclusion of the procedure, all equipment was removed from the patient and she was transferred to PACU in satisfactory condition. FINDINGS: Esophagus: Normal-appearing mucosa was seen in the proximal, mid, and distal esophagus. There was no evidence of erosions, ulcerations, mass lesions, Eusebia esophagitis, or active/recent bleeding. Biopsies were taken from the distal esophagus and proximal esophagus for the evaluation of possible eosinophilic esophagitis and/or possible nonerosive reflux component. Stomach: A significant amount of retained solid and liquid food was seen in the gastric fundus and body significantly limiting visualization of the gastric mucosa despite aggressive irrigation and suctioning. Of the mucosa seen, normal-appearing mucosa was seen in the gastric cardia, fundus, and body, there was mild mucosal erythema seen in the distal body and extending into the gastric antrum and along the incisura; however, there was no evidence of erosions, ulcerations, mass lesions, or active/recent bleeding. No biopsies were taken given the significantly mild nature of these findings. Duodenum: Normal-appearing mucosa was seen in both the duodenal bulb and second portion of the duodenum. There was no evidence of erosions, ulcerations, mass lesions, or active/recent bleeding. IMPRESSION: 1. Retained solid and liquid food seen in the stomach limiting visualization of the gastric mucosa, but concerning for possible gastroparesis. 2. No evidence of esophageal stricture or Eusebia esophagitis; however, status post biopsies for possible eosinophilic esophagitis. 3. Otherwise normal upper endoscopy. RECOMMENDATIONS: 1. We would continue the patient on pantoprazole 40 mg b.i.d. in light of probable acid reflux as well as possible gastroparesis, which could further exacerbate it. 2. We would follow up on the biopsy results for possible eosinophilic esophagitis. We would treat if positive. 3. We would recommend smaller more frequent meals throughout the day, especially with one of those meals being more of a liquid meal to facilitate passage to the stomach for possible gastroparesis. 4. We would recommend a gastric emptying study for confirmation of possible gastroparesis. 5. Agree with continuation of MiraLAX to prevent constipation, which could further exacerbate gastroparesis type picture and generate nausea and vomiting. 6. Strongly recommend tight blood sugar control as elevated blood sugars can exacerbate gastroparesis and subsequently nausea and vomiting. 7. We would attempt to minimize any narcotics as it can further exacerbate constipation and as a result gastroparesis. 8. We would consider changing the patient's antiemetic regimen from promethazine to metoclopramide 5 mg t.i.d. with meals. Given the relative negative findings on upper endoscopy today and no etiology for the patient's chest pain seen, we will sign off as the gastroparesis workup is primarily an outpatient workup. I will order the gastric emptying study while in-house. The patient can be followed up in the GI Clinic in 3 to 4 weeks with the above recommendations. Please call with any questions. Job ID: [id number]
[2019-12-18] MEDS ORDERED: Heparin 10,000 UNITS/ 10 ML VIAL ONE (10:36)
[2019-12-18] MEDS: traMADol HCl 50 MG TAB PO PRN ×2 (12:34→22:51)
[2019-12-18] MEDS: Ondansetron PF 4 MG/2 ML Vial IVP PRN ×2 (12:34→22:52)
[2019-12-18] MEDS: Metoclopramide 10 MG/10 ML UDCUP PO SCH ×2 (14:23→22:50)
--- NOTE | 2019-12-18 14:54 | PDOC.CPN ---
- Subjective Date: 12/18/19 Time: 14:55 Interval history: The pt seen and examined. She cont having pressure to MS area; - Objective Allergies/Adverse Reactions: Allergies Allergy/AdvReac Type Severity Reaction Status Date / Time meperidine [From Demerol] Allergy Verified 12/13/19 23:22 codeine AdvReac Verified 11/07/19 23:00 Visit Medications: Current Medications Acetaminophen (Tylenol) 650 mg PO Q4H PRN PRN Reason: Headache/Fever/Mild Pain (1-3) Last Admin: 12/16/19 06:08 Dose: 650 mg Amlodipine Besylate (Norvasc) 2.5 mg PO DAILY [facility] Last Admin: 12/18/19 08:53 Dose: Not Given Aspirin (Ecotrin) 325 mg PO DAILY [facility] Last Admin: 12/18/19 08:53 Dose: Not Given Atorvastatin Calcium (Lipitor) 40 mg PO HS [facility] Last Admin: 12/17/19 20:41 Dose: 40 mg Bisacodyl (Dulcolax) 10 mg DE DAILYPRN PRN PRN Reason: Constipation Cephalexin (Keflex) 500 mg PO BID [facility] Last Admin: 12/18/19 09:37 Dose: Not Given Clopidogrel Bisulfate (Plavix) 75 mg PO DAILY [facility] Last Admin: 12/18/19 09:37 Dose: Not Given Dextrose/Water (Dextrose 50%) 25 gm SLOW IVP PRN PRN PRN Reason: Hypoglycemia Duloxetine HCl (Cymbalta) 60 mg PO DAILY [facility] Last Admin: 12/18/19 08:53 Dose: Not Given Gabapentin (Neurontin) 300 mg PO DAILY [facility] Last Admin: 12/18/19 08:53 Dose: Not Given Glucagon (Glucagon) 1 mg IM PRN PRN PRN Reason: Hypoglycemia Hydralazine HCl (Apresoline) 50 mg PO TID [facility] Last Admin: 12/18/19 14:23 Dose: 50 mg Hydralazine HCl (Apresoline) 10 mg SLOW IVP Q4H PRN PRN Reason: SBP Greater Than 180 Dextrose/Water (D5w) 1,000 mls @ 0 mls/hr IV .Q0M PRN PRN Reason: Hypoglycemia Insulin Glargine 60 units/ (Miscellaneous Medication) 0.6 mls @ 0 mls/hr SC [facility] Last Admin: 12/17/19 21:19 Dose: Not Given Insulin Human Regular (Humulin R) 0 units SC .MILD SLIDING SCALE PRN PRN Reason: Mild Correctional Scale Last Admin: 12/17/19 14:21 Dose: 3 unit Insulin Human Regular (Humulin R) 0 units SC .BEDTIME SLIDING SC PRN PRN Reason: Bedtime Correctional Scale Last Admin: 12/13/19 22:38 Dose: 3 unit Isosorbide Mononitrate (Imdur) 60 mg PO DAILY [facility] Last Admin: 12/18/19 09:37 Dose: Not Given Lactulose (Lactulose) 10 gm PO DAILYPRN PRN PRN Reason: Constipation Metoclopramide HCl (Reglan) 5 mg PO TID [facility] Last Admin: 12/18/19 14:23 Dose: 5 mg Metoprolol Tartrate (Lopressor) 100 mg PO BID [facility] Last Admin: 12/18/19 08:54 Dose: Not Given Ondansetron HCl (Zofran) 4 mg IVP Q6H PRN PRN Reason: Nausea/Vomiting Last Admin: 12/18/19 12:34 Dose: 4 mg Pantoprazole Sodium (Protonix) 40 mg IVP Q12HR [facility] Last Admin: 12/18/19 08:54 Dose: Not Given Polyethylene Glycol (Miralax) 17 gm PO BID [facility] Last Admin: 12/18/19 08:54 Dose: Not Given Ranolazine (Ranexa) 1,000 mg PO BID [facility] Last Admin: 12/18/19 08:54 Dose: Not Given Saccharomyces Boulardii (Florastor) 250 mg PO [facility] Last Admin: 12/17/19 20:40 Dose: 250 mg Senna/Docusate Sodium (Senokot S) 2 tab PO BID PRN PRN Reason: Constipation Sevelamer Carbonate (Renvela) 800 mg PO TID-[facility] Last Admin: 12/18/19 11:00 Dose: Not Given Sodium Chloride (Flush - Normal Saline) 10 ml IVF PRN PRN PRN Reason: Saline Flush Last Admin: 12/17/19 21:51 Dose: 10 ml Tramadol HCl (Ultram) 50 mg PO Q6H PRN PRN Reason: Moderate Pain (4-6) Last Admin: 12/18/19 12:34 Dose: 50 mg Vital Signs & Weight: Vital Signs Temp Pulse Resp BP BP Pulse Ox 12/18/19 14:23 73 12/18/19 10:11 97.6 F 73 18 126/76 98 12/18/19 08:53 76 12/18/19 07:12 97.8 F 76 18 138/66 96 12/18/19 04:00 98.0 F 76 18 170/81 H 95 Admit Weight 292 lb Weight 283 lb 4.8 oz - Physical Exam General: alert & oriented x3 HEENT: mucus membranes moist Neck: supple neck Cardiac: regular rate and rhythm, S1/S2 Lungs: clear to auscultation Neuro: cranial nerve 2-12 intact Extremities: no edema - Labs Result Diagrams: 12/18/19 04:55 12/18/19 04:55 Troponin/CKMB Troponin I 0.010 ng/mL (< 0.028) 12/13/19 21:34 - Telemetry Sinus rhythms and dysrhythmias: sinus rhythm - Assessment/Plan Assessment/Plan: 1. CP - Her EKG does not indicate ischemia and Troponin I is negative. However, she cont having pressure to mid MS area. On Imdur 60 mg qd; on Ranexa 1000mg BID; EGD today showed large residual in her ABD; 2. CAD with s/p LHC on 10/2019 with 50% in LAD, 70% in RCA and 100% in Lt Cx which retrograde filling from the Left - on BBlocker and ASA, Plavix, and Lipitor; not on GADIEL/ARB due to hx of CKD 3. HTN - stable 4. Chronic combined HF - stable with bblocker and HD; not on GADIEL/ARB due to hx of CKD 5. ESRD on dialysis 6. Pain to LUE AV graft site - ABX 7. Chronic nausea - prob due to gastroparesis 8. DM2 - on Lantus & sliding scale 9. Chronic Anemia due to renal insuf 10. Depression 11. Morbid obesity BMI 41.3 12. Sleep Apnea 13. Chronic nausea - On Protonix; GI consult was done today and the pt will undergo EGD tomorrow by Dr Vipul RAY reviewed * s/p LHC on 10/2019 with 50% in LAD, 70% in RCA and 100% in Lt Cx which retrograde filling from the Left * Echo in 10/2019 with EF 50-55% (40-45% in 09/2019), grade I dd, hypokinetic lateral wall, trace MR and DE, and mild TR Pt. seen and eval. by me.I agree with the A/P by the [employer]. Still is still c/o chest pain, not nec. worse with activity.GI workup did not show evidence for the degree of chest pain that pt. c/o's of. She is to have a gastric emptying study tomorrow. She seems convinced that her pain is cardiac. She does have CAD but not felt to be critical. I will plan for a cath on monday and likely PTCA/ stent to the . The LAD also has disease but the distal LAD is < 2.0 mm. Chest clear. RRR. No edema.
--- NOTE | 2019-12-18 19:33 | PRG ---
DATE OF SERVICE: 12/18/2019 SERVICE: Nephrology. SUBJECTIVE: A 49-year-old female, seen in followup for end-stage renal disease management. The patient was admitted due to recurrent chest pain associated with shortness of breath and lightheadedness. Still complaining of some nausea and intermittent chest pain. Remained afebrile. Left upper limb swelling and erythema have improved significantly. OBJECTIVE: VITAL SIGNS: Temperature 97.6, pulse 73, respiratory rate 18, SpO2 of 98% on room air, blood pressure is 126/76. GENERAL: Obese female, in no obvious distress. Afebrile. Anicteric. Acyanotic. HEENT: Normocephalic, atraumatic. Oral mucosa is moist. CARDIOVASCULAR: Regular rhythm and rate with normal heart sounds one and two. RESPIRATORY: Fair air entry bilaterally, few transmitted breath sounds. No obvious crackle or rhonchi or use of accessory muscles appreciated. GASTROINTESTINAL: Obese, soft, nontender, nondistended with normal bowel sounds. EXTREMITIES: Minimal erythema at the site of AV fistula of the left cubital fossa area. Left BKA noted. Other extremities are grossly normal, atraumatic with no edema or erythema. CENTRAL NERVOUS SYSTEM: Conscious, alert and oriented x3 with appropriate mental status. Cranial nerves 2 through 12 are grossly intact. DIAGNOSTIC DATA: CBC showed WBC count of 8.7, hemoglobin of 9.1, MCV of 96.2, platelets of 220. BMP showed sodium 140, potassium 4.4, chloride 102, CO2 of 30, BUN 35, creatinine 5.24, glucose 107, calcium 8.9, total bilirubin 0.3, AST 13, ALT 9, alkaline phosphatase 85, total protein 6.8, albumin 3.5, globulin 3.3. ASSESSMENT: 1. End-stage renal disease, on hemodialysis Monday, Monday, Monday. 2. Volume status: Euvolemic clinically. 3. Electrolyte derangement: Acceptable. 4. Hypertension: Control is acceptable. 5. Anemia in chronic kidney disease. 6. Left upper extremity cellulitis, on treatment. 7. Type 2 diabetes mellitus: Controlled. 8. Recurrent nausea: Thought to be due to diabetic gastroparesis. 9. Recurrent chest pain. Evaluation as per Cardiology. PLAN: We will dialyze the patient today in line with outpatient hemodialysis maintenance schedule of Monday, Monday, and Monday. We will dialyze the patient with 3K bath with UF as tolerated. We will monitor blood pressure to avoid hemodynamic instability and decompensation. DISPOSITION: The patient can be discharged from Nephrology point of view once cleared by Cardiology. We will continue to follow the patient while hospitalized and provide maintenance hemodialysis as indicated. Job ID: [id number]
--- NOTE | 2019-12-18 22:40 | PDOC.HOSPP ---
- Subjective Encounter Date: 12/18/19 Encounter Time: 11:00 Subjective: Patient seen and examined for CP/persistent nausea. s/p EGD. No other complaints. No overnight events - Objective Vital Signs & Weight: Vital Signs (12 hours) Temp Pulse Resp BP BP Pulse Ox 12/18/19 19:36 98.5 F 77 16 114/56 L 94 L 12/18/19 15:29 97.7 F 80 16 124/59 L 95 12/18/19 14:23 73 Weight Admit Weight 292 lb Weight 283 lb 4.8 oz I&O: 12/17/19 12/18/19 12/19/19 06:59 06:59 06:59 Intake Total 720 840 350 Output Total 0 Balance 720 840 350 Result Diagrams: 12/18/19 04:55 12/18/19 04:55 Additional Labs: Accuchecks 12/18/19 12/18/19 12/18/19 20:47 16:23 10:49 POC Glucose 158 H 183 H 101 12/18/19 05:14 POC Glucose 106 EKG Reviewed by me: Yes (Tele SR) Hospitalist ROS - Review of Systems Respiratory: denies: cough, dry, shortness of breath, hemoptysis, SOB with excertion, pleuritic pain, sputum, wheezing, other Cardiovascular: denies: chest pain, palpitations, orthopnea, paroxysmal noc. dyspnea, edema, light headedness, other Gastrointestinal: denies: nausea, vomiting, abdominal pain, diarrhea, constipation, melena, hematochezia, other - Medication Medications: Active Medications Generic Name Dose Route Start Last Admin Trade Name Matq PRN Reason Stop Dose Admin Acetaminophen 650 mg 12/13/19 18:57 12/16/19 06:08 Tylenol PO 650 mg Q4H PRN Administration Headache/Fever/Mild Pain (1-3) Amlodipine Besylate 2.5 mg 12/15/19 09:00 12/18/19 08:53 Norvasc PO Not Given DAILY [facility] Aspirin 325 mg 12/14/19 09:00 12/18/19 08:53 Ecotrin PO Not Given DAILY [facility] Atorvastatin Calcium 40 mg 12/14/19 21:00 12/17/19 20:41 Lipitor PO 40 mg HS [facility] Administration Cephalexin 500 mg 12/14/19 21:00 12/18/19 09:37 Keflex PO Not Given BID [facility] Clopidogrel Bisulfate 75 mg 12/14/19 09:00 12/18/19 09:37 Plavix PO Not Given DAILY [facility] Duloxetine HCl 60 mg 12/14/19 09:00 12/18/19 08:53 Cymbalta PO Not Given DAILY [facility] Gabapentin 300 mg 12/14/19 09:00 12/18/19 08:53 Neurontin PO Not Given DAILY [facility] Hydralazine HCl 50 mg 12/14/19 09:00 12/18/19 14:23 Apresoline PO 50 mg TID [facility] Administration Insulin Glargine 60 units/ 0.6 mls @ 0 mls/hr 12/14/19 21:00 12/17/19 21:19 Miscellaneous Medication SC Not Given [facility] Insulin Human Regular 0 units 12/13/19 19:00 12/17/19 14:21 Humulin R SC 3 unit .MILD SLIDING SCALE PRN Administration Mild Correctional Scale Insulin Human Regular 0 units 12/13/19 19:00 12/13/19 22:38 Humulin R SC 3 unit .BEDTIME SLIDING SC PRN Administration Bedtime Correctional Scale Isosorbide Mononitrate 60 mg 12/15/19 09:00 12/18/19 09:37 Imdur PO Not Given DAILY [facility] Metoclopramide HCl 5 mg 12/18/19 15:00 12/18/19 14:23 Reglan PO 5 mg TID [facility] Administration Metoprolol Tartrate 100 mg 12/14/19 21:00 12/18/19 08:54 Lopressor PO Not Given BID [facility] Ondansetron HCl 4 mg 12/18/19 09:29 12/18/19 12:34 Zofran IVP 4 mg Q6H PRN Administration Nausea/Vomiting Pantoprazole Sodium 40 mg 12/16/19 21:00 12/18/19 08:54 Protonix IVP Not Given Q12HR [facility] Polyethylene Glycol 17 gm 12/13/19 21:00 12/18/19 08:54 Miralax PO Not Given BID [facility] Ranolazine 1,000 mg 12/14/19 21:00 12/18/19 08:54 Ranexa PO Not Given BID [facility] Saccharomyces Boulardii 250 mg 12/16/19 21:00 12/17/19 20:40 Florastor PO 250 mg HS [facility] Administration Sevelamer Carbonate 800 mg 12/14/19 08:00 12/18/19 17:13 Renvela PO 800 mg TID-[facility] Administration Sodium Chloride 10 ml 12/13/19 18:57 12/17/19 21:51 Flush - Normal Saline IVF 10 ml PRN PRN Administration Saline Flush Tramadol HCl 50 mg 12/14/19 10:16 12/18/19 12:34 Ultram PO 50 mg Q6H PRN Administration Moderate Pain (4-6) - Exam General Appearance: NAD Neck: supple, no JVD Heart: RRR, no gallops Respiratory: no wheezes, no ronchi Gastrointestinal: non-distended, normal bowel sounds Gastrointestinal - other findings: mild epigastric tend Extremities: no cyanosis Hosp A/P - Plan DVT proph w/SCDs CP/near syncope Persistent nausea - prob due to gastroparesis s/p EGD HTN CAD ESRD on dialysis LUE pain/swelling DM2 - on Lantus & sliding scale Chronic Anemia due to renal insuf Depression Chronic diastolic HF - No GADIEL/ARB due to CKD Morbid obesity BMI 41.3 PLAN: Cont IV Protonix Started on Reglan Gastric emptying scan pending DC Narcotics Phenergan dced Cont ASA/Plavix/Ranexa/Imdur Cont Metoprolol/Amlodipine Dialysis per Nephro Cont other meds as above
[2019-12-18] MEDS: Atorvastatin Calcium 40 MG TAB PO SCH (22:50)
[2019-12-18] MEDS: Saccharomyces boulardii 250 MG CAP PO SCH (22:51)
[2019-12-18] MEDS: Insulin Glargine 60 UNITS in Pre-Filled Syringe SC SCH (23:20)
[2019-12-19] MEDS: Acetaminophen 325 MG TAB PO PRN ×2 (04:20→20:42)
[2019-12-19] MEDS: Ondansetron PF 4 MG/2 ML Vial IVP PRN ×3 (04:25→20:44)
[2019-12-19] MEDS: Sevelamer Carbonate 800 MG TAB PO SCH ×3 (08:19→16:00)
[2019-12-19] MEDS: hydrALAZINE 25 MG TAB PO SCH ×3 (08:20→20:46)
[2019-12-19] MEDS: Metoprolol Tartrate 100 MG TAB PO SCH ×2 (08:20→20:44)
[2019-12-19] MEDS: Polyethylene Glycol 3350 17 GM Packet PO SCH ×2 (08:20→21:24)
[2019-12-19] MEDS: Metoclopramide 10 MG/10 ML UDCUP PO SCH ×3 (08:20→20:43)
[2019-12-19] MEDS: Pantoprazole 40 MG VIAL IVP SCH ×2 (10:22→20:42)
--- NOTE | 2019-12-19 13:11 | NM ---
EXAM: NM Gastric Empty Scan W/Meal PROVIDED CLINICAL HISTORY: Nausea and vomiting COMPARISON: None FINDINGS: 2.2 mCi sulfur collate was given orally in egg. Anterior planar imaging was performed over the abdome n for 4 hours. Calculated gastric emptying half-time is 72 minutes, which is normal. IMPRESSION: Normal gastric emptying half-time.
[2019-12-19] MEDS: Cephalexin 250 MG CAP PO SCH ×2 (13:17→20:43)
[2019-12-19] MEDS: Aspirin 325 mg Enteric Coated Tablet PO SCH (13:17)
[2019-12-19] MEDS: Amlodipine 5 MG TAB PO SCH (13:17)
[2019-12-19] MEDS: Gabapentin 300 MG CAP PO SCH (13:18)
[2019-12-19] MEDS: DULoxetine 60 MG CAP PO SCH (13:18)
[2019-12-19] MEDS: Clopidogrel Bisulfate 75 MG TAB PO SCH (13:18)
[2019-12-19] MEDS: traMADol HCl 50 MG TAB PO PRN (13:38)
[2019-12-19] MEDS ORDERED: Communication Order-Pharmacy FS SCH ×2 (15:00→15:15)
--- NOTE | 2019-12-19 15:16 | PDOC.CPN ---
- Subjective Date: 12/19/19 Time: 15:00 - Review of Systems General: reports: fever/chills, night sweats Respiratory: reports: cough, shortness of breath Cardiovascular: reports: chest pain Gastrointestinal: reports: nausea, abd pain Musculoskeletal: reports: pain, swelling Neurological: reports: numbness, syncope - Objective Allergies/Adverse Reactions: Allergies Allergy/AdvReac Type Severity Reaction Status Date / Time meperidine [From Demerol] Allergy Verified 12/13/19 23:22 codeine AdvReac Verified 11/07/19 23:00 Visit Medications: Current Medications Acetaminophen (Tylenol) 650 mg PO Q4H PRN PRN Reason: Headache/Fever/Mild Pain (1-3) Last Admin: 12/19/19 04:20 Dose: 650 mg Amlodipine Besylate (Norvasc) 2.5 mg PO DAILY [facility] Last Admin: 12/19/19 13:17 Dose: 2.5 mg Aspirin (Ecotrin) 325 mg PO DAILY [facility] Last Admin: 12/19/19 13:17 Dose: 325 mg Atorvastatin Calcium (Lipitor) 40 mg PO HS [facility] Last Admin: 12/18/19 22:50 Dose: 40 mg Bisacodyl (Dulcolax) 10 mg MD DAILYPRN PRN PRN Reason: Constipation Cephalexin (Keflex) 500 mg PO BID [facility] Last Admin: 12/19/19 13:17 Dose: 500 mg Clopidogrel Bisulfate (Plavix) 75 mg PO DAILY [facility] Last Admin: 12/19/19 13:18 Dose: 75 mg Dextrose/Water (Dextrose 50%) 25 gm SLOW IVP PRN PRN PRN Reason: Hypoglycemia Duloxetine HCl (Cymbalta) 60 mg PO DAILY [facility] Last Admin: 12/19/19 13:18 Dose: 60 mg Gabapentin (Neurontin) 300 mg PO DAILY [facility] Last Admin: 12/19/19 13:18 Dose: 300 mg Glucagon (Glucagon) 1 mg IM PRN PRN PRN Reason: Hypoglycemia Hydralazine HCl (Apresoline) 50 mg PO TID [facility] Last Admin: 12/19/19 13:38 Dose: Not Given Hydralazine HCl (Apresoline) 10 mg SLOW IVP Q4H PRN PRN Reason: SBP Greater Than 180 Dextrose/Water (D5w) 1,000 mls @ 0 mls/hr IV .Q0M PRN PRN Reason: Hypoglycemia Insulin Glargine 60 units/ (Miscellaneous Medication) 0.6 mls @ 0 mls/hr SC [facility] Last Admin: 12/18/19 23:20 Dose: Not Given Insulin Human Regular (Humulin R) 0 units SC .MILD SLIDING SCALE PRN PRN Reason: Mild Correctional Scale Last Admin: 12/17/19 14:21 Dose: 3 unit Insulin Human Regular (Humulin R) 0 units SC .BEDTIME SLIDING SC PRN PRN Reason: Bedtime Correctional Scale Last Admin: 12/13/19 22:38 Dose: 3 unit Isosorbide Mononitrate (Imdur) 60 mg PO DAILY [facility] Last Admin: 12/19/19 13:17 Dose: 60 mg Lactulose (Lactulose) 10 gm PO DAILYPRN PRN PRN Reason: Constipation Metoclopramide HCl (Reglan) 5 mg PO TID [facility] Last Admin: 12/19/19 13:38 Dose: 5 mg Metoprolol Tartrate (Lopressor) 100 mg PO BID [facility] Last Admin: 12/19/19 08:20 Dose: Not Given Miscellaneous Information (Communication Order-Pharmacy) 0 each FS ONE [facility] Miscellaneous Information (Communication Order-Pharmacy) 0 each FS ONE [facility] Ondansetron HCl (Zofran) 4 mg IVP Q6H PRN PRN Reason: Nausea/Vomiting Last Admin: 12/19/19 13:38 Dose: 4 mg Pantoprazole Sodium (Protonix) 40 mg IVP Q12HR [facility] Last Admin: 12/19/19 10:22 Dose: Not Given Polyethylene Glycol (Miralax) 17 gm PO BID [facility] Last Admin: 12/19/19 08:20 Dose: Not Given Ranolazine (Ranexa) 1,000 mg PO BID [facility] Last Admin: 12/19/19 08:19 Dose: Not Given Saccharomyces Boulardii (Florastor) 250 mg PO [facility] Last Admin: 12/18/19 22:51 Dose: 250 mg Senna/Docusate Sodium (Senokot S) 2 tab PO BID PRN PRN Reason: Constipation Sevelamer Carbonate (Renvela) 800 mg PO TID-[facility] Last Admin: 12/19/19 12:07 Dose: Not Given Sodium Chloride (Flush - Normal Saline) 10 ml IVF PRN PRN PRN Reason: Saline Flush Last Admin: 12/19/19 04:25 Dose: 10 ml Tramadol HCl (Ultram) 50 mg PO Q6H PRN PRN Reason: Moderate Pain (4-6) Last Admin: 12/19/19 13:38 Dose: 50 mg Vital Signs & Weight: Vital Signs Temp Pulse Resp BP BP Pulse Ox 12/19/19 15:03 98.0 F 85 16 132/63 94 L 12/19/19 13:19 74 18 140/67 97 12/19/19 13:17 76 12/19/19 08:20 76 12/19/19 07:25 97.7 F 76 16 116/55 L 94 L 12/19/19 04:35 97.7 F 71 13 119/59 L 94 L Admit Weight 292 lb Weight 279 lb 14.4 oz - Quality Measures CV meds: Beta Elif: Yes, Statin: Yes - Physical Exam HEENT: normocephaly Neck: no JVD/HJR Cardiac: regular rate and rhythm Lungs: clear to auscultation, no wheeze, rales, rhonchi Neuro: grossly intact Abdomen: unremarkable Extremities: no edema - Labs Result Diagrams: 12/18/19 04:55 12/18/19 04:55 Troponin/CKMB Troponin I 0.010 ng/mL (< 0.028) 12/13/19 21:34 - Telemetry Sinus rhythms and dysrhythmias: sinus rhythm - Assessment/Plan Assessment/Plan: 1. CP - Her EKG does not indicate ischemia and Troponin I is negative. However, she cont having pressure to mid MS area. On Imdur 60 mg qd; on Ranexa 1000mg BID; EGD today showed large residual in her ABD; 2. CAD with s/p LHC on 10/2019 with 50% in LAD, 70% in RCA and 100% in Lt Cx which retrograde filling from the Left - on BBlocker and ASA, Plavix, and Lipitor; not on GADIEL/ARB due to hx of CKD 3. HTN - stable 4. Chronic combined HF - stable with bblocker and HD; not on GADIEL/ARB due to hx of CKD 5. ESRD on dialysis 6. Pain to LUE AV graft site - ABX 7. Chronic nausea - prob due to gastroparesis 8. DM2 - on Lantus & sliding scale 9. Chronic Anemia due to renal insuf 10. Depression 11. Morbid obesity BMI 41.3 12. Sleep Apnea 13. Chronic nausea - On Protonix; GI consult was done today and the pt will undergo EGD tomorrow by Dr Vipul RAY reviewed * s/p LHC on 10/2019 with 50% in LAD, 70% in RCA and 100% in Lt Cx which retrograde filling from the Left * Echo in 10/2019 with EF 50-55% (40-45% in 09/2019), grade I dd, hypokinetic lateral wall, trace MR and MD, and mild TR Pt. still c/o ing of chest pain. She has stenosis in the RCA that I will try to angioplasty +/- stent in AM due to her continued chest pain. I have explained the procedure and risks. She agrees to proceed. p[leslye for AM and dialysis thereafter. sandra
--- NOTE | 2019-12-19 15:51 | PDOC.HOSPP ---
- Subjective Encounter Date: 12/19/19 Encounter Time: 15:00 Subjective: Patient seen and examined for CP. No new complaints. No overnight events - Objective Vital Signs & Weight: Vital Signs (12 hours) Temp Pulse Resp BP BP Pulse Ox 12/19/19 15:03 98.0 F 85 16 132/63 94 L 12/19/19 13:19 74 18 140/67 97 12/19/19 13:17 76 12/19/19 08:20 76 12/19/19 07:25 97.7 F 76 16 116/55 L 94 L 12/19/19 04:35 97.7 F 71 13 119/59 L 94 L Weight Admit Weight 292 lb Weight 279 lb 14.4 oz I&O: 12/18/19 12/19/19 12/20/19 06:59 06:59 06:59 Intake Total 840 470 Balance 840 470 Result Diagrams: 12/18/19 04:55 12/18/19 04:55 Additional Labs: Accuchecks 12/19/19 12/18/19 12/18/19 05:22 20:47 16:23 POC Glucose 100 158 H 183 H EKG Reviewed by me: Yes (Tele SR) Hospitalist ROS - Review of Systems Respiratory: denies: cough, dry, shortness of breath, hemoptysis, SOB with excertion, pleuritic pain, sputum, wheezing, other Cardiovascular: denies: chest pain, palpitations, orthopnea, paroxysmal noc. dyspnea, edema, light headedness, other Gastrointestinal: reports: nausea. denies: vomiting, abdominal pain, diarrhea, constipation, melena, hematochezia, other - Medication Medications: Active Medications Generic Name Dose Route Start Last Admin Trade Name Freq PRN Reason Stop Dose Admin Acetaminophen 650 mg 12/13/19 18:57 12/19/19 04:20 Tylenol PO 650 mg Q4H PRN Administration Headache/Fever/Mild Pain (1-3) Amlodipine Besylate 2.5 mg 12/15/19 09:00 12/19/19 13:17 Norvasc PO 2.5 mg DAILY PANCHO Administration Aspirin 325 mg 12/14/19 09:00 12/19/19 13:17 Ecotrin PO 325 mg DAILY PANCHO Administration Atorvastatin Calcium 40 mg 12/14/19 21:00 12/18/19 22:50 Lipitor PO 40 mg HS PANCHO Administration Cephalexin 500 mg 12/14/19 21:00 12/19/19 13:17 Keflex PO 500 mg BID PANCHO Administration Clopidogrel Bisulfate 75 mg 12/14/19 09:00 12/19/19 13:18 Plavix PO 75 mg DAILY PANCHO Administration Duloxetine HCl 60 mg 12/14/19 09:00 12/19/19 13:18 Cymbalta PO 60 mg DAILY PANCHO Administration Gabapentin 300 mg 12/14/19 09:00 12/19/19 13:18 Neurontin PO 300 mg DAILY PANCHO Administration Hydralazine HCl 50 mg 12/14/19 09:00 12/19/19 13:38 Apresoline PO Not Given TID [facility] Insulin Glargine 60 units/ 0.6 mls @ 0 mls/hr 12/14/19 21:00 12/18/19 23:20 Miscellaneous Medication SC 12/20/19 08:00 Not Given HS PANCHO Insulin Human Regular 0 units 12/13/19 19:00 12/17/19 14:21 Humulin R SC 12/20/19 08:00 3 unit .MILD SLIDING SCALE PRN Administration Mild Correctional Scale Insulin Human Regular 0 units 12/13/19 19:00 12/13/19 22:38 Humulin R SC 12/20/19 08:00 3 unit .BEDTIME SLIDING SC PRN Administration Bedtime Correctional Scale Isosorbide Mononitrate 60 mg 12/15/19 09:00 12/19/19 13:17 Imdur PO 60 mg DAILY [facility] Administration Metoclopramide HCl 5 mg 12/18/19 15:00 12/19/19 13:38 Reglan PO 5 mg TID [facility] Administration Metoprolol Tartrate 100 mg 12/14/19 21:00 12/19/19 08:20 Lopressor PO Not Given BID [facility] Ondansetron HCl 4 mg 12/18/19 09:29 12/19/19 13:38 Zofran IVP 4 mg Q6H PRN Administration Nausea/Vomiting Pantoprazole Sodium 40 mg 12/16/19 21:00 12/19/19 10:22 Protonix IVP Not Given Q12HR [facility] Polyethylene Glycol 17 gm 12/13/19 21:00 12/19/19 08:20 Miralax PO Not Given BID [facility] Ranolazine 1,000 mg 12/14/19 21:00 12/19/19 08:19 Ranexa PO Not Given BID [facility] Saccharomyces Boulardii 250 mg 12/16/19 21:00 12/18/19 22:51 Florastor PO 250 mg HS PAN[facility] Administration Sevelamer Carbonate 800 mg 12/14/19 08:00 12/19/19 12:07 Renvela PO Not Given TID-WM PANCHO Sodium Chloride 10 ml 12/13/19 18:57 12/19/19 04:25 Flush - Normal Saline IVF 10 ml PRN PRN Administration Saline Flush Tramadol HCl 50 mg 12/14/19 10:16 12/19/19 13:38 Ultram PO 50 mg Q6H PRN Administration Moderate Pain (4-6) - Exam General Appearance: NAD Neck: supple, no JVD Heart: RRR, no gallops, no rubs Respiratory: no wheezes, no rales Gastrointestinal: soft, non-distended, normal bowel sounds Extremities: no cyanosis Neurological: no new deficit Hosp A/P - Plan CP/near syncope with persistent nausea - ?etio HTN CAD ESRD on dialysis LUE pain/swelling DM2 - on Lantus & sliding scale Chronic Anemia due to renal insuf Depression Chronic diastolic HF - No GADIEL/ARB due to CKD Morbid obesity BMI 41.3 PLAN: Cont IV Protonix with Reglan Gastric emptying scan - negative Cath in AM Cont ASA/Plavix/Ranexa/Imdur Cont Metoprolol/Amlodipine Dialysis per Nephro Cont other meds as above
[2019-12-19] MEDS: Saccharomyces boulardii 250 MG CAP PO SCH (20:44)
[2019-12-19] MEDS: Atorvastatin Calcium 40 MG TAB PO SCH (20:44)
[2019-12-19] MEDS: Insulin Glargine 60 UNITS in Pre-Filled Syringe SC SCH (20:50)
[2019-12-20] MEDS: Cephalexin 250 MG CAP PO SCH ×2 (06:01→20:57)
[2019-12-20] MEDS: Aspirin 325 mg Enteric Coated Tablet PO SCH (06:01)
[2019-12-20] MEDS: Gabapentin 300 MG CAP PO SCH (06:01)
[2019-12-20] MEDS: DULoxetine 60 MG CAP PO SCH (06:02)
[2019-12-20] MEDS: Metoclopramide 10 MG/10 ML UDCUP PO SCH ×3 (06:02→20:59)
[2019-12-20] MEDS: Clopidogrel Bisulfate 75 MG TAB PO SCH (06:02)
[2019-12-20] MEDS: Amlodipine 5 MG TAB PO SCH (06:02)
[2019-12-20] MEDS: hydrALAZINE 25 MG TAB PO SCH ×3 (06:03→20:57)
[2019-12-20] MEDS: Metoprolol Tartrate 100 MG TAB PO SCH ×2 (06:04→20:58)
[2019-12-20] MEDS: Pantoprazole 40 MG VIAL IVP SCH ×2 (06:04→21:01)
[2019-12-20 06:25] VITALS: BMI 40.8
[2019-12-20] MEDS ORDERED: Heparin 10,000 UNITS/1 ML VIAL ONE (06:42)
[2019-12-20] MEDS ORDERED: Midazolam HCl 2 mg/2 ml Vial ONE (07:52)
[2019-12-20] MEDS ORDERED: Ondansetron PF 4 MG/2 ML Vial ONE (07:53)
[2019-12-20] MEDS ORDERED: Iopamidol 370 76% 50 ML VIAL FS ONE (09:05)
[2019-12-20] MEDS ORDERED: Iopamidol 370 76% 100 ML VIAL ONE (09:05)
[2019-12-20] MEDS ORDERED: Heparin 10,000 UNITS/ 10 ML VIAL ONE (09:38)
[2019-12-20] MEDS ORDERED: Morphine 2 MG/ML SYRINGE ONE ×2 (10:29→10:35)
[2019-12-20] MEDS: Sevelamer Carbonate 800 MG TAB PO SCH ×3 (10:31→17:17)
[2019-12-20] MEDS: Polyethylene Glycol 3350 17 GM Packet PO SCH ×2 (13:41→20:59)
--- NOTE | 2019-12-20 14:23 | EKG ---
Test Reason : Blood Pressure : / mmHG Vent. Rate : 079 BPM Atrial Rate : 079 BPM P-R Int : 200 ms QRS Dur : 166 ms QT Int : 462 ms P-R-T Axes : 039 217 050 degrees QTc Int : 529 ms Normal sinus rhythm Right bundle branch block Abnormal ECG Confirmed by BRIELLE DAMON DO ([id number]), field map editor ALISIA JOSEPH ([id number]) on 12/20/2019 2:23:20 PM Referred By: Confirmed By:BRIELLE DAMON DO
[2019-12-20] MEDS: Acetaminophen 325 MG TAB PO PRN (15:08)
[2019-12-20] MEDS: traMADol HCl 50 MG TAB PO PRN ×2 (15:09→21:00)
--- NOTE | 2019-12-20 15:51 | PRG ---
DATE OF SERVICE: 12/20/2019 SERVICE: Nephrology. SUBJECTIVE: This is a 49-year-old female with end-stage renal disease due to hypertension and diabetes, admitted due to recurrent chest pain associated with shortness of breath and lightheadedness. The patient had cardiac catheterization earlier today with stent placement. Reports feeling better. Nausea and chest pain and shortness of breath has improved. Remained afebrile. OBJECTIVE: VITAL SIGNS: Temperature 97.8, pulse 77, respiratory rate 16, SpO2 of 98% on room air, and blood pressure 129/61. GENERAL: Obese female, in no obvious distress. Afebrile. Anicteric. Acyanotic. HEENT: Normocephalic and atraumatic. Oral mucosa is moist. NECK: Supple with no JVD. CARDIOVASCULAR: Regular rhythm and rate. Normal heart sounds 1 and 2. RESPIRATORY: Fair air entry bilaterally with no obvious crackle or rhonchi or use of accessory muscles. GI: Obese, soft, nontender, nondistended with normal bowel sounds. EXTREMITIES: Left BKA noted. Other extremities are grossly unremarkable with no obvious edema, erythema or cyanosis. DIRECTOR AIRPORT OPERATIONS: Conscious, alert, and oriented x3 with appropriate mental status. Cranial nerves 2 through 12 are grossly intact. ASSESSMENT: 1. End-stage renal disease, on hemodialysis, Monday, Monday and Monday. The patient had contrast study in the form of cardiac catheterization with stent placement earlier today. 2. Hypertension: Control is acceptable. 3. Volume status: The patient seems close to euvolemia. 4. Left upper extremity cellulitis, on treatment. 5. Anemia in chronic kidney disease. PLAN: 1. We will dialyze the patient for 4 hours in line with outpatient schedule. This is also imperative given that the patient had contrast earlier today. 2. Continue other treatments. The patient can be discharged from Nephrology point of view once cleared by Cardiology. She should resume outpatient dialysis schedule with next dialysis arranged to be on Monday. Further treatment to follow depending on hospital course. Job ID: [id number]
--- NOTE | 2019-12-20 17:00 | PDOC.HOSPP ---
- Subjective Encounter Date: 12/20/19 Encounter Time: 14:00 Subjective: Patient seen and examined for CP. s/p Cath. No new complaints. No overnight events - Objective Vital Signs & Weight: Vital Signs (12 hours) Temp Pulse Resp BP BP BP Pulse Ox 12/20/19 14:30 98.9 F 60 16 96/44 L 97 12/20/19 07:30 97.8 F 77 16 129/61 96 12/20/19 06:03 80 151/65 H 12/20/19 06:02 80 151/65 H 12/20/19 05:02 97.8 F 81 16 157/74 H 94 L Weight Admit Weight 292 lb Weight 285 lb 1.6 oz I&O: 12/19/19 12/20/19 12/21/19 06:59 06:59 06:59 Intake Total 470 720 Balance 470 720 Result Diagrams: 12/18/19 04:55 12/18/19 04:55 Additional Labs: Accuchecks 12/20/19 12/20/19 12/19/19 16:41 05:09 20:15 POC Glucose 125 H 214 H 230 H EKG Reviewed by me: Yes (Tele SR) Hospitalist ROS - Review of Systems Respiratory: denies: cough, dry, shortness of breath, hemoptysis, SOB with excertion, pleuritic pain, sputum, wheezing, other Cardiovascular: denies: chest pain, palpitations, orthopnea, paroxysmal noc. dyspnea, edema, light headedness, other - Medication Medications: Active Medications Generic Name Dose Route Start Last Admin Trade Name Freq PRN Reason Stop Dose Admin Acetaminophen 650 mg 12/13/19 18:57 12/20/19 15:08 Tylenol PO 650 mg Q4H PRN Administration Headache/Fever/Mild Pain (1-3) Amlodipine Besylate 2.5 mg 12/15/19 09:00 12/20/19 06:02 Norvasc PO 2.5 mg DAILY PANCHO Administration Aspirin 325 mg 12/14/19 09:00 12/20/19 06:01 Ecotrin PO 325 mg DAILY [facility] Administration Atorvastatin Calcium 40 mg 12/14/19 21:00 12/19/19 20:44 Lipitor PO 40 mg HS PANCHO Administration Cephalexin 500 mg 12/14/19 21:00 12/20/19 06:01 Keflex PO 500 mg BID PAN[facility] Administration Clopidogrel Bisulfate 75 mg 12/14/19 09:00 12/20/19 06:02 Plavix PO 75 mg DAILY [facility] Administration Duloxetine HCl 60 mg 12/14/19 09:00 12/20/19 06:02 Cymbalta PO 60 mg DAILY PAN[facility] Administration Gabapentin 300 mg 12/14/19 09:00 12/20/19 06:01 Neurontin PO 300 mg DAILY [facility] Administration Hydralazine HCl 50 mg 12/14/19 09:00 12/20/19 15:04 Apresoline PO Not Given TID [facility] Isosorbide Mononitrate 60 mg 12/15/19 09:00 12/20/19 06:01 Imdur PO 60 mg DAILY [facility] [place] Administration Metoclopramide HCl 5 mg 12/18/19 15:00 12/20/19 15:04 Reglan PO Not Given TID [facility] [place] Metoprolol Tartrate 100 mg 12/14/19 21:00 12/20/19 06:04 Lopressor PO 100 mg BID [facility] Administration Ondansetron HCl 4 mg 12/18/19 09:29 12/19/19 20:44 Zofran IVP 4 mg Q6H PRN Administration Nausea/Vomiting Pantoprazole Sodium 40 mg 12/16/19 21:00 12/20/19 06:04 Protonix IVP 40 mg Q12HR [facility] Administration Polyethylene Glycol 17 gm 12/13/19 21:00 12/20/19 13:41 Miralax PO Not Given BID [facility] [place] Ranolazine 1,000 mg 12/14/19 21:00 12/20/19 06:01 Ranexa PO 1,000 mg BID [facility] [place] Administration Saccharomyces Boulardii 250 mg 12/16/19 21:00 12/19/19 20:44 Florastor PO 250 mg HS [facility] Administration Sevelamer Carbonate 800 mg 12/14/19 08:00 12/20/19 13:41 Renvela PO Not Given TID-WM [facility] Sodium Chloride 10 ml 12/13/19 18:57 12/19/19 04:25 Flush - Normal Saline IVF 10 ml PRN PRN Administration Saline Flush Tramadol HCl 50 mg 12/14/19 10:16 12/20/19 15:09 Ultram PO 50 mg Q6H PRN Administration Moderate Pain (4-6) - Exam General Appearance: NAD Heart: RRR, no gallops Respiratory: no wheezes, no rales Gastrointestinal: soft, non-tender, non-distended, normal bowel sounds Extremities: no cyanosis Neurological: no new deficit Hosp A/P - Plan CP suspected Unstable angina Near syncope with persistent nausea. HTN CAD ESRD on dialysis LUE pain/swelling DM2 - on Lantus & sliding scale Chronic Anemia due to renal insuf Depression Chronic diastolic HF - No GADIEL/ARB due to CKD Morbid obesity BMI 41.3 PLAN: s/p Cath with stent placement Dialysis today Cont IV PPI Cont Reglan Gastric emptying scan - negative Cont ASA/Plavix Cont Ranexa/Imdur Cont Metoprolol/Amlodipine Dialysis per Nephro DC home once cleared by Cardiology
[2019-12-20] MEDS: Atorvastatin Calcium 40 MG TAB PO SCH (20:58)
[2019-12-20] MEDS: Saccharomyces boulardii 250 MG CAP PO SCH (20:59)
[2019-12-20] MEDS: Ondansetron PF 4 MG/2 ML Vial IVP PRN (21:02)
[2019-12-20] MEDS ORDERED: Melatonin 3 MG TAB PO SCH (23:30)
[2019-12-21 04:03] VITALS: TEMP 97.8
[2019-12-21 04:32] LABS: #Basophils 0.1 thou/uL (0.0-0.2); #Eosinphils 0.4 thou/uL (0.0-0.7); #Lymphocytes 1.8 thou/uL (1.20-3.40); #Monocytes 0.6 thou/uL (0.11-0.59); #Neutrophils 4.9 thou/uL (1.40-6.50); %Basophils 1.1 % (0.0-1.0); %Lymphocytes 23.5 % (21.0-51.0); %Monocytes 7.9 % (0.0-10.0); %Neutrophils 62.6 % (42.0-75.0); Hemoglobin 9.3 g/dL (12.0-16.0); Mean Corpuscular HGB CONC 33.5 g/dL (32.0-36.0); Mean Corpuscular Hemoglobin 32.2 pg (27.0-31.0); Mean Corpuscular Volume 96.2 fL (78.0-98.0); Mean Platelet Volume 7.9 fL (7.4-10.4); Platelet Count 194 thou/uL (130-400); RBC Distribution Width 13.6 % (11.5-14.5); Red Blood Cell (RBC) Count 2.88 mill/uL (4.20-5.40); White Blood Cell (WBC) Count 7.8 thou/uL (4.8-10.8)
[2019-12-21 04:59] LABS: ALT (SGPT) 9 U/L (8-55); AST (SGOT) 12 U/L (5-34); Albumin 3.4 g/dL (3.5-5.0); Alkaline Phosphatase 87 U/L (40-110); Anion Gap 12 mmol/L (10-20); BUN (Urea Nitrogen) 21 mg/dL (7.0-18.7); Bilirubin, Total 0.4 mg/dL (0.2-1.2); Calc. Creatinine Clearance 34 mL/min (70-130); Calcium 8.6 mg/dL (7.8-10.44); Carbon Dioxide 30 mmol/L (22-29); Chloride 102 mmol/L (98-107); Estimated GFR-MDRD 11; Globulin 3.5 g/dL (2.4-3.5); Glucose 163 mg/dL (70-105); Potassium 4.3 mmol/L (3.5-5.1); Protein, Total 6.9 g/dL (6.0-8.3); Sodium 140 mmol/L (136-145)
[2019-12-21] MEDS: Ondansetron PF 4 MG/2 ML Vial IVP PRN ×2 (05:00→11:08)
[2019-12-21] MEDS: traMADol HCl 50 MG TAB PO PRN ×2 (05:00→11:08)
[2019-12-21 07:47] VITALS: BP 138/65
[2019-12-21] MEDS: Amlodipine 5 MG TAB PO SCH (08:56)
[2019-12-21] MEDS: Aspirin 325 mg Enteric Coated Tablet PO SCH (08:57)
[2019-12-21] MEDS: DULoxetine 60 MG CAP PO SCH (08:58)
[2019-12-21] MEDS: Cephalexin 250 MG CAP PO SCH (08:58)
[2019-12-21] MEDS: hydrALAZINE 25 MG TAB PO SCH (08:58)
[2019-12-21] MEDS: Gabapentin 300 MG CAP PO SCH (08:58)
[2019-12-21] MEDS: Clopidogrel Bisulfate 75 MG TAB PO SCH (08:58)
[2019-12-21] MEDS: Metoprolol Tartrate 100 MG TAB PO SCH (08:59)
[2019-12-21] MEDS: Pantoprazole 40 MG VIAL IVP SCH (08:59)
[2019-12-21] MEDS: Polyethylene Glycol 3350 17 GM Packet PO SCH (09:01)
[2019-12-21] MEDS: Metoclopramide 10 MG/10 ML UDCUP PO SCH (09:11)
--- NOTE | 2019-12-21 10:05 | PRG ---
DATE OF SERVICE: 12/21/2019 SUBJECTIVE: Ms. Wilkes is doing well today after her percutaneous intervention. OBJECTIVE: VITAL SIGNS: Her blood pressure is 138/65, pulse 70 and it is regular. LUNGS: Clear. CARDIAC: Normal S1, normal S2. ABDOMEN: Obese, nontender. EXTREMITIES: There is no edema. The patient, however, is tender in the right groin. She complains of right groin pain. ASSESSMENT: 1. Status post successful PCI of the right coronary artery. 2. Right groin pain. PLAN: We will go ahead and do ultrasound of the leg prior to discharge. she has pain at home to rule out a pseudoaneurysm before going home. Otherwise, she will go home on the same medicines she came in including aspirin and Plavix. Job ID: [id number]
--- NOTE | 2019-12-21 10:11 | ULT ---
Sonogram right groin for pseudoaneurysm HISTORY: Right groin pain. Recent catheterization. FINDINGS: Good color flow within the right common femoral artery and vein. No evidence of pseudoaneurysm or hematoma.
[2019-12-21] MEDS: Acetaminophen 325 MG TAB PO PRN (10:26)
[2019-12-21] MEDS: Sevelamer Carbonate 800 MG TAB PO SCH (10:35)
--- NOTE | 2019-12-23 07:14 | DIS ---
DATE OF ADMISSION: 12/20/2019 DATE OF DISCHARGE: 12/21/2019 DISCHARGE DISPOSITION: Home. FOLLOWUP: 1. Follow up with primary care physician at [facility] in 1 week. 2. Follow up with Cardiology, Dr. Schroeder in 2 to 3 weeks. 3. Follow up with Dr. Pretty in 3 to 4 weeks. ALLERGIES: THE PATIENT IS ALLERGIC TO DEMEROL AND CODEINE. THE PATIENT WAS SEEN AND EXAMINED ON THE DAY OF DISCHARGE. DENIES ANY NEW COMPLAINTS. NO CHEST PAIN, SHORTNESS OF BREATH, OR PALPITATIONS REPORTED. DISCHARGE MEDICATION: 1. Cymbalta 60 mg daily. 2. Levemir 80 units at bedtime. 3. Victoza 0.6 mg subcu daily. 4. Ranexa 1000 mg b.i.d. 5. Amlodipine 2.5 mg daily. 6. Aspirin 325 mg daily. 7. Lipitor 40 mg at bedtime. 8. Plavix 75 mg daily. 9. Lasix 80 mg daily. 10. Gabapentin 300 mg daily. 11. Hydralazine 50 mg 3 times a day. 12. Isosorbide mononitrate 60 mg daily. 13. Lopressor 100 mg b.i.d. 14. Nitroglycerin patch one patch daily. 15. Phenergan 25 mg b.i.d. as needed. 16. Renvela 800 mg t.i.d. 17. Sublingual nitroglycerin as needed. INPATIENT GASKET SUPERVISOR: 1. Cardiology, Dr. Schroeder. 2. Gastroenterology, Dr. Pretty. INPATIENT PROCEDURES: 1. On 12/18/2019, the patient underwent EGD that showed retained solid and liquid food seen in the stomach limiting the visualization of the gastric mucosa. There was no finding consistent with Eusebia esophagitis. Otherwise, the EGD was normal. 2. Cardiac catheterization on 12/20/2019, with stent placement to the distal posterolateral coronary artery and distal RCA. 3. Nuclear medicine gastric emptying study was normal. 4. CT angiogram of the chest was limited due to suboptimal contrast timing. 5. Left upper extremity ultrasound showed soft tissue edema with patent fistula. BRIEF HOSPITAL COURSE: The patient is a 49-year-old white female with coronary artery disease, presented to the emergency room with chest discomfort along with near syncope. Please refer to the history and physical for further details. The patient was admitted to the observation unit with chest discomfort along with near syncope. Serial troponins remain negative. She was evaluated by Cardiology, who recommended GI evaluation. She underwent GI evaluation as discussed above. Yesterday, she underwent cardiac catheterization with stent placement as discussed above. She was advised to be compliant with aspirin and Plavix. Earlier today, she had some discomfort in the right groin. Pseudoaneurysm has been ruled out. The patient has been cleared by Cardiology for discharge. FINAL DIAGNOSES: 1. Chest discomfort, suspicious for unstable angina. 2. Near syncope with persistent nausea. 3. Hypertension. 4. Coronary artery disease. 5. End-stage renal disease, on hemodialysis. 6. Left upper extremity pain/swelling, improved. 7. Diabetes mellitus type 2. 8. Chronic anemia due to renal insufficiency. 9. Depression. 10. Chronic diastolic heart failure. 11. Morbid obesity with a BMI of 41.3. The patient understands the above plan of care. Job ID: [id number]
== END 2019-12-21 11:40 | disposition home or self-care (01) | DRG 246 ==
LOC: ERS 14:57 → 2SW 18:22 → OBSVTOIN 12-20 09:06 → 2NO 12-20 09:58
PROVIDERS: ADMIT Internal Medicine; ATTEND Internal Medicine
PROC: 0DB38ZX Excision of Lower Esophagus, Via Natural or Artificial Opening Endoscopic, Diagnostic (ICD-10-PCS; 2019-12-18)
PROC: 0DB18ZX Excision of Upper Esophagus, Via Natural or Artificial Opening Endoscopic, Diagnostic (ICD-10-PCS; 2019-12-18)
PROC: 027135Z Dilation of Coronary Artery, Two Arteries with Two Drug-eluting Intraluminal Devices, Percutaneous Approach (ICD-10-PCS; principal; 2019-12-20)
PROC: 4A023N7 Measurement of Cardiac Sampling and Pressure, Left Heart, Percutaneous Approach (ICD-10-PCS; 2019-12-20)
PROC: B2111ZZ Fluoroscopy of Multiple Coronary Arteries using Low Osmolar Contrast (ICD-10-PCS; 2019-12-20)
DX: I25.110 Atherosclerotic heart disease of native coronary artery with unstable angina pectoris (principal); N18.6 End stage renal disease; I50.42 Chronic combined systolic (congestive) and diastolic (congestive) heart failure; L03.114 Cellulitis of left upper limb; I13.2 Hypertensive heart and chronic kidney disease with heart failure and with stage 5 chronic kidney disease, or end stage renal disease; Z68.41 Body mass index [BMI] 40.0-44.9, adult; E11.22 Type 2 diabetes mellitus with diabetic chronic kidney disease; D63.1 Anemia in chronic kidney disease; F32.9 Major depressive disorder, single episode, unspecified; E66.01 Morbid (severe) obesity due to excess calories; F41.9 Anxiety disorder, unspecified; E78.5 Hyperlipidemia, unspecified; M79.7 Fibromyalgia; I25.82 Chronic total occlusion of coronary artery; G47.30 Sleep apnea, unspecified; E11.43 Type 2 diabetes mellitus with diabetic autonomic (poly)neuropathy; K31.84 Gastroparesis; E11.40 Type 2 diabetes mellitus with diabetic neuropathy, unspecified; R13.10 Dysphagia, unspecified; Z99.2 Dependence on renal dialysis; Z90.49 Acquired absence of other specified parts of digestive tract; Z89.512 Acquired absence of left leg below knee; Z87.891 Personal history of nicotine dependence; Z90.710 Acquired absence of both cervix and uterus; Z79.899 Other long term (current) drug therapy; Z79.82 Long term (current) use of aspirin; Z79.02 Long term (current) use of antithrombotics/antiplatelets; Z88.8 Allergy status to other drugs, medicaments and biological substances
CPT/HCPCS: 36415; 36416; 71045; 71275; 76936; 78264; 80048; 80053; 82550; 83735; 84484; 85025; 85347; 85576; 87340; 88305; 88312; 88313; 90935; 92928; 93005; 93010; 93454; 93798; 96374; 96375; 99152; 99153; A9541; C1769; C1874; C1887; C9113; C9600; G0257; J1644; J1815; J2250; J2270; J2405; J2550; J2704; J3010; J3370; J7050; Q0169; Q9967

== ENCOUNTER 2020-02-25 19:03 | Observation (INO) | payer MEDICARE ==
[2020-02-25 20:23] LABS: #Basophils 0.1 thou/uL (0.0-0.2); #Eosinphils 0.3 thou/uL (0.0-0.7); #Lymphocytes 2.1 thou/uL (1.20-3.40); #Monocytes 0.7 thou/uL (0.11-0.59); #Neutrophils 5.2 thou/uL (1.40-6.50); %Basophils 0.8 % (0.0-1.0); %Eosinophils 3.6 % (0.0-10.0); %Lymphocytes 24.5 % (21.0-51.0); %Monocytes 8.9 % (0.0-10.0); %Neutrophils 62.3 % (42.0-75.0); Hemoglobin 11.5 g/dL (12.0-16.0); Mean Corpuscular HGB CONC 33.2 g/dL (32.0-36.0); Mean Corpuscular Hemoglobin 32.5 pg (27.0-31.0); Mean Corpuscular Volume 97.9 fL (78.0-98.0); Mean Platelet Volume 7.6 fL (7.4-10.4); Platelet Count 241 thou/uL (130-400); RBC Distribution Width 14.9 % (11.5-14.5); Red Blood Cell (RBC) Count 3.53 mill/uL (4.20-5.40); White Blood Cell (WBC) Count 8.4 thou/uL (4.8-10.8)
[2020-02-25] MEDS ORDERED: Nitroglycerin 2% Ointment 1 INCH/1 GM Packet ONE (20:23)
[2020-02-25] MEDS ORDERED: Aspirin Chewable 81 MG TAB ONE (20:23)
[2020-02-25 20:47] LABS: ALT (SGPT) 19 U/L (8-55); AST (SGOT) 18 U/L (5-34); Albumin 3.8 g/dL (3.5-5.0); Alkaline Phosphatase 94 U/L (40-110); Anion Gap 19 mmol/L (10-20); BUN (Urea Nitrogen) 56 mg/dL (7.0-18.7); Bilirubin, Total 0.3 mg/dL (0.2-1.2); CK (CPK) 121 U/L (29-168); Calc. Creatinine Clearance 0 mL/min (70-130); Calcium 8.9 mg/dL (7.8-10.44); Carbon Dioxide 24 mmol/L (22-29); Chloride 100 mmol/L (98-107); Estimated GFR-MDRD 10; Globulin 3.9 g/dL (2.4-3.5); Glucose 304 mg/dL (70-105); Lipase 110 U/L (8-78); Potassium 4.7 mmol/L (3.5-5.1); Protein, Total 7.7 g/dL (6.0-8.3); Sodium 138 mmol/L (136-145)
[2020-02-25] MEDS ORDERED: Dextrose 50% Abboject 50 ML SYRINGE SLOW IVP PRN (21:41)
[2020-02-25] MEDS ORDERED: Dextrose 5% in Water 1,000 ML IV PRN (21:41)
--- NOTE | 2020-02-25 21:55 | RAD ---
PORTABLE CHEST ONE VIEW: 02/25/20 at 8:16 p.m. HISTORY: Chest pain, shortness of breath. COMPARISON: 12/13/19. FINDINGS: The heart is enlarged. Right sided dialysis catheter remains in place. There is continued mild elevat ion of the right hemidiaphragm. No lobar consolidation, pneumothoraces, omkar pulmonary edema or pleu ral effusions are seen. IMPRESSION: No acute process. POS: MATY
--- NOTE | 2020-02-25 22:23 | PDOC.EVN ---
Event Note - Event Note Event Note: [id number] HP dictated
[2020-02-25 22:47] LABS: Troponin I 0.016 ng/mL (< 0.028)
[2020-02-25] MEDS: Morphine 2 MG/ML SYRINGE SLOW IVP PRN (23:37)
[2020-02-25] MEDS: HumaLOG 300 UNITS/3 ML VIAL SC PRN (23:37)
[2020-02-25] MEDS: Ondansetron PF 4 MG/2 ML Vial IVP PRN (23:37)
[2020-02-26 00:06] VITALS: BMI 42.9
[2020-02-26 01:37] LABS: Troponin I 0.014 ng/mL (< 0.028)
[2020-02-26] MEDS ORDERED: Promethazine HCl 25 MG/ML VIAL IM/IV SCH (02:00)
--- NOTE | 2020-02-26 02:07 | HP ---
CHIEF COMPLAINT: Chest pain. HISTORY OF PRESENT ILLNESS: Ms. Wilkes is a 49-year-old female with past medical history of coronary artery disease, recent stent in December 2019; end-stage renal disease, on hemodialysis; hypertension; diabetes; among others, presents to the emergency room with chest pain, radiating to the back and associated with shortness of breath that started earlier today. Workup in the emergency room including initial troponin negative, EKG showed right bundle branch block, no acute finding. The patient's blood pressure initially was 200/100, repeat blood pressure 177/90. The patient is on hemodialysis. The patient is being admitted to hospital for further management. PAST MEDICAL HISTORY: 1. Diabetes mellitus. 2. End-stage renal disease, on hemodialysis. 3. Hypertension. 4. Coronary artery disease next. 5. Neuropathy. 6. Hyperlipidemia. 7. Fibromyalgia. PAST SURGICAL HISTORY: 1. Left knee surgery. 2. Appendectomy. 3. Cholecystectomy. 4. section. 5. Hysterectomy. 6. Lithotripsy. 7. Left below-knee amputation. 8. Port placement, left fistula. PAST PSYCHIATRIC HISTORY: Anxiety and depression. FAMILY HISTORY: Reviewed and noncontributory. HOME MEDICATIONS: Please see home medication reconciliation form for updated medications. SOCIAL HISTORY: Denies alcohol drinking. Former cigarette smoker. ALLERGIES: ALLERGIC TO CODEINE, DEMEROL, MEPERIDINE. REVIEW OF SYSTEMS: Review of 14 systems negative except what is mentioned in history of present illness. PHYSICAL EXAMINATION: GENERAL: The patient is awake, alert, in moderate distress. VITAL SIGNS: Blood pressure 177/90, respiratory rate is 28, temperature is 97.9, pulse is 82, oxygen saturation 97% on room air. HEAD AND NECK: Normocephalic and atraumatic. NECK: Supple. No JVD. CHEST: Fair bilateral air entry. HEART: S1 and S2. Regular. ABDOMEN: Soft, nontender. Bowel sounds present. NEUROLOGIC: Awake, alert, oriented x3. PSYCH: Normal mood. EXTREMITIES: Left below-knee amputation. GENITOURINARY: No suprapubic tenderness. No flank tenderness. LABORATORY DATA: Potassium is 4.7, creatinine 4.48. WBCs 8.4, hemoglobin 11.5. ASSESSMENT: 1. Acute chest pain, rule out acute coronary syndrome. 2. Coronary artery disease with history of cardiac stent. 3. End-stage disease, on hemodialysis. 4. Diabetes mellitus. 5. Hyperlipidemia. 6. Peripheral vascular disease. 7. Hyperlipidemia. 8. Hypertension. PLAN: 1. Admit. 2. Telemonitoring. 3. Aspirin. 4. Serial troponins. 5. Consult patient's flash oven operator in a.m. for evaluation and further recommendations. 6. Reconcile home medications. 7. DVT prophylaxis as appropriate. 8. Expected length of stay, 1 midnight if the patient is stable and further workup negative. Job ID: [id number]
[2020-02-26] MEDS ORDERED: Promethazine HCl 12.5 MG in Sodium Chloride 0.9% 50 ML IVPB SCH (02:15)
[2020-02-26] MEDS ORDERED: Metoprolol Tartrate 25 MG TAB PO SCH (09:00)
[2020-02-26] MEDS ORDERED: Aspirin 325 mg Enteric Coated Tablet PO SCH (09:00)
[2020-02-26] MEDS ORDERED: Heparin 10,000 UNITS/ 10 ML VIAL ONE (09:03)
[2020-02-26] MEDS: hydrALAZINE 25 MG TAB PO SCH ×3 (09:18→22:33)
[2020-02-26] MEDS: Gabapentin 300 MG CAP PO SCH (09:18)
[2020-02-26] MEDS: Sevelamer Carbonate 800 MG TAB PO SCH ×3 (09:18→16:54)
[2020-02-26] MEDS: Furosemide 80 MG TAB PO SCH (09:18)
[2020-02-26] MEDS: Morphine 2 MG/ML SYRINGE SLOW IVP PRN ×3 (09:19→22:33)
[2020-02-26] MEDS: Ondansetron PF 4 MG/2 ML Vial IVP PRN ×3 (09:19→22:33)
[2020-02-26] MEDS: Clopidogrel Bisulfate 75 MG TAB PO SCH (12:04)
[2020-02-26] MEDS: Metoprolol Tartrate 100 MG TAB PO SCH ×2 (13:09→22:33)
--- NOTE | 2020-02-26 13:34 | CON ---
DATE OF CONSULTATION: 02/26/2020 REASON FOR CONSULTATION: Chest pain. PRIMARY REAGENT TENDER: Cathryn Schroeder MD HISTORY OF PRESENT ILLNESS: Ms. Wilkes is a very pleasant 49-year-old white female, who is a patient of Dr. Schroeder, who comes to the hospital for chest pain. She has a significant history of coronary artery disease. She had drug-eluting stents placed to the right coronary artery on December 19 of this year, one was 3.5 x 16 to the RPL and a 3.0 x 12 drug-eluting posted almost 3.5 to another branch of the PL with good results. She has moderate disease on the LAD proximally and severe disease distally, not amenable to revascularization, and she has a completely occluded left circumflex that Dr. Schroeder tried across is a chronic total occlusion. It fills from collaterals from the LAD and she was unable to cross the HEAD START DIRECTOR. She comes in with chest pain. This is typical of her angina. Her blood pressure was 200/100 on admission. She is on hemodialysis Monday, Monday, and Monday. She missed her dialysis this morning and she came into the hospital yesterday evening. On my evaluation, she denies any chest pain, tightness, or pressure. She feels better. PAST MEDICAL HISTORY: 1. Type 2 diabetes. 2. End-stage renal disease, on hemodialysis Monday, Monday, and Monday with Dr. Hernandez. 3. Hypertension. 4. Coronary artery disease. 5. Neuropathy. 6. Fibromyalgia. 7. Hyperlipidemia. PAST SURGICAL HISTORY: 1. Left knee surgery. 2. Appendectomy. 3. Cholecystectomy. 4. . 5. Hysterectomy. 6. Lithotripsy. 7. Left BKA. 8. Left fistula placement. 9. Heart catheterization with stenting as above. FAMILY HISTORY: Noncontributory. OUTPATIENT MEDICATIONS: 1. Aspirin 325 a day. 2. Lasix 80 mg p.r.n. 3. Cymbalta. 4. Lipitor 40 mg at bedtime. 5. Metoprolol 100 mg b.i.d. 6. Imdur 60 mg a day. 7. Sublingual nitroglycerin p.r.n. 8. Nitroglycerin patch. 9. Hydralazine 50 mg t.i.d. 10. Sevelamer 800 t.i.d. 11. Ranexa 1000 mg b.i.d. 12. Insulin Lantus. 13. Plavix 75 mg a day. 14. Gabapentin. 15. Humalog. ALLERGIES: CODEINE AND MEPERIDINE. REVIEW OF SYSTEMS: A 12-point review of systems was done and was all negative unless stated in the history of present illness. SOCIAL HISTORY: No alcohol, tobacco, or drugs. Former cigarette smoker. PHYSICAL EXAMINATION: VITAL SIGNS: Temperature 97.5, pulse 82, respiratory rate 18, saturating 98% on room air, blood pressure 158/75. GENERAL: Awake, alert, and oriented x3. No distress. HEENT: Normocephalic and atraumatic. NECK: Supple. LUNGS: Clear. CARDIOVASCULAR: S1 and S2. No S3 or S4. No murmurs. ABDOMEN: Soft. Positive bowel sounds. EXTREMITIES: No edema. Left BKA. SKIN: Warm and dry. LABORATORY DATA: Laboratory work was reviewed. CBC with a white count of 8, hemoglobin 11, hematocrit of 34, and platelet count of 241. Chemistries were unremarkable except for a BUN of 56 and a creatinine of 4.4, which is expected for kidney disease. Troponins were completely negative x3. Albumin was 3.8. Lipase was 110. ASSESSMENT: 1. Chest pain. Likely her chronic stable angina as well as hypertensive urgency with her blood pressure being so high. Feeling much better. 2. Coronary artery disease, stable. No acute coronary syndrome. 3. End-stage renal disease, on hemodialysis Monday, Monday, and Monday. PLAN: 1. We will up titrate her antianginals. We will go up on her isosorbide mononitrate to 120 mg a day. 2. Continue other antianginals. 3. If she continues to have chest pain, she may need calcium channel blockers for antianginals and blood pressure effect. 4. From the cardiac perspective, she may be discharged home at any point. Thank you for letting us to participate in the care of your patient. We will follow. Job ID: [id number]
--- NOTE | 2020-02-26 17:34 | PDOC.HOSPP ---
- Subjective Encounter Date: 02/26/20 Encounter Time: 09:00 Subjective: no overnight events. chest pain this morning resolved. Pending evaluation by cardiology - Objective Vital Signs & Weight: Vital Signs (12 hours) Temp Pulse Resp BP Pulse Ox 02/26/20 15:33 71 02/26/20 15:27 97.5 F L 71 18 118/55 L 96 02/26/20 12:04 97.5 F L 82 18 158/75 H 98 02/26/20 09:18 85 02/26/20 07:48 97.5 F L 85 18 173/64 H 97 Weight Weight 299 lb I&O: 02/25/20 02/26/20 02/27/20 06:59 06:59 06:59 Intake Total 70 Balance 70 Result Diagrams: 02/25/20 20:10 02/25/20 20:10 Additional Labs: Accuchecks 02/26/20 02/26/20 02/25/20 16:38 11:14 23:07 POC Glucose 213 H 214 H 362 H Hospitalist ROS - Review of Systems Constitutional: denies: fever, chills, sweats, weakness, malaise, other Respiratory: denies: cough, dry, shortness of breath, hemoptysis, SOB with excertion, pleuritic pain, sputum, wheezing, other Cardiovascular: denies: chest pain, palpitations, orthopnea, paroxysmal noc. dyspnea, edema, light headedness, other Gastrointestinal: denies: nausea, vomiting, abdominal pain, diarrhea, constipation, melena, hematochezia, other Musculoskeletal: reports: shoulder pain - Medication Medications: Active Medications Generic Name Dose Route Start Last Admin Trade Name Matq PRN Reason Stop Dose Admin Clopidogrel Bisulfate 75 mg 02/26/20 09:00 02/26/20 12:04 Plavix PO 75 mg DAILY PANCHO Administration Furosemide 80 mg 02/26/20 09:00 02/26/20 09:18 Lasix PO 80 mg DAILY PANCHO Administration Gabapentin 300 mg 02/26/20 09:00 02/26/20 09:18 Neurontin PO 300 mg DAILY PANCHO Administration Hydralazine HCl 50 mg 02/26/20 09:00 02/26/20 15:33 Apresoline PO Not Given TID [facility] Insulin Human Lispro 0 units 02/25/20 21:41 02/25/20 23:37 Humalog SC 6 unit .MILD SLIDING SCALE PRN Administration Mild Correctional Scale Metoprolol Tartrate 100 mg 02/26/20 09:00 02/26/20 13:09 Lopressor PO 100 mg BID PANCHO Administration Morphine Sulfate 2 mg 02/25/20 22:16 02/26/20 15:29 Morphine SLOW IVP 2 mg Q4H PRN Administration Severe Pain (7-10) Ondansetron HCl 4 mg 02/25/20 22:22 02/26/20 15:29 Zofran IVP 4 mg Q6H PRN Administration Nausea/Vomiting Ranolazine 1,000 mg 02/26/20 09:00 02/26/20 09:18 Ranexa PO 1,000 mg BID PANCHO Administration Sevelamer Carbonate 800 mg 02/26/20 08:00 02/26/20 16:54 Renvela PO 800 mg TID-WM PANCHO Administration - Exam General Appearance: NAD, awake alert General - other findings: morbidly obese Eye: PERRL Heart: RRR, no murmur, no gallops Respiratory: CTAB, no wheezes, no rales, no ronchi Gastrointestinal: soft, non-tender, non-distended, normal bowel sounds Extremities: no edema Psychiatric: normal affect, normal behavior, A&O x 3 Hosp A/P - Plan #hypertensive emergency #unstable angina -resolved, stable now -pending cardiology assessment -added losartan for better BP control
[2020-02-27] MEDS: Morphine 2 MG/ML SYRINGE SLOW IVP PRN ×3 (02:59→12:50)
[2020-02-27] MEDS: HumaLOG 300 UNITS/3 ML VIAL SC PRN ×2 (05:13→12:51)
[2020-02-27] MEDS: Sevelamer Carbonate 800 MG TAB PO SCH ×2 (08:23→12:00)
[2020-02-27] MEDS: Clopidogrel Bisulfate 75 MG TAB PO SCH (08:23)
[2020-02-27] MEDS: Metoprolol Tartrate 100 MG TAB PO SCH (08:24)
[2020-02-27] MEDS: hydrALAZINE 25 MG TAB PO SCH (08:24)
[2020-02-27] MEDS: Gabapentin 300 MG CAP PO SCH (08:24)
[2020-02-27] MEDS: Furosemide 80 MG TAB PO SCH (08:24)
[2020-02-27] MEDS: Ondansetron PF 4 MG/2 ML Vial IVP PRN (08:25)
[2020-02-27] MEDS ORDERED: Losartan 25 MG TAB PO SCH (09:00)
[2020-02-27 11:59] VITALS: BP 153/75; TEMP 98
--- NOTE | 2020-02-28 00:31 | CON ---
DATE OF CONSULTATION: CONSULTING PHYSICIAN: Giana Douglas MD REQUESTING PHYSICIAN: Hospitalist Service. REASON FOR CONSULTATION: Need for maintenance hemodialysis. IMPRESSION: 1. End-stage renal disease, on hemodialysis Monday, Monday, Monday schedule. 2. Obesity. 3. Chest pain. 4. Diabetes mellitus. 5. Hypertension. PLAN: The patient was dialyzed yesterday and if possible, can receive a short dialysis today with emphasis on ultrafiltration, otherwise the patient from the renal standpoint can be discharged and follow up with the outpatient dialysis tomorrow with instruction to restrict the amount of fluid intake. HISTORY OF PRESENT ILLNESS: History is that of a 49-year-old gentleman with end-stage renal disease, hemodialysis dependent, followed by Dr. Hernandez, who presented here with chest pain. The need for maintenance dialysis necessitated this renal consultation. At this time of history taking, the patient seems to be asymptomatic with her chest pain resolved. The patient had about 8 L above her dry weight as of Monday this week. The patient dialyzed yesterday with ultrafiltration of close to 4 L with improvement in the symptoms of this patient. PAST MEDICAL HISTORY: Significant for type 2 diabetes, end-stage renal disease, hypertension, coronary artery disease, dyslipidemia, and fibromyalgia. MEDICATIONS: Reviewed and as documented on [employer]. FAMILY HISTORY: Nonsignificantly related to present illness. SOCIAL HISTORY: No alcohol. No remote tobacco use. ALLERGIES: TO CODEINE, DEMEROL, AND MEPERIDINE. REVIEW OF SYSTEMS: As documented in the body of the history. All the other systems were reviewed and found not to be significantly related to present illness. PHYSICAL EXAMINATION: GENERAL: The patient was found not to be in any obvious distress. Noted with the following vital signs. VITAL SIGNS: Afebrile, temperature 98, pulse 86, respiratory rate of 18, O2 saturation are 97% with a blood pressure of . HEENT: Unremarkable. Moist oral mucosa. No conjunctival injection or icterus. NECK: Supple. CARDIOVASCULAR SYSTEM: First and second heart sounds were heard. RESPIRATORY SYSTEM: Clear to auscultation. DIGESTIVE SYSTEM: Revealed a benign abdomen. Positive bowel sounds. EXTREMITIES: No peripheral edema. SKIN: No new gross rash. LYMPHATICS: No peripheral lymphadenopathy. SUMMARY: A 49-year-old female patient, who presented here with chest pain with a history of end-stage renal disease, hemodialysis dependent. Thank you for this consultation. We will follow with you. Job ID: [id number]
--- NOTE | 2020-02-28 13:15 | DIS ---
DATE OF ADMISSION: 02/25/2020 DATE OF DISCHARGE: 02/27/2020 HOSPITAL COURSE: Ms. Wilkes is a 49-year-old female with a medical history of coronary artery disease, who presented with chest pain and shortness of breath. She was found to be in hypertensive emergency, resulting in unstable angina. Cardiology was consulted and increased the patient's isosorbide mononitrate. The patient's symptoms have resolved. She was discharged home hemodynamically stable and asymptomatic. PHYSICAL EXAMINATION: VITAL SIGNS: Blood pressure 163/75, temperature 98.0 Fahrenheit, pulse 86, respiratory rate 18, and oxygen saturation 97% on room air. GENERAL: No apparent distress. Awake and alert. Morbidly obese. EYES: PERRL. HEART: Regular rate and rhythm. No murmur. No gallops. RESPIRATORY: Clear to auscultation bilaterally. No wheezing, rales, or rhonchi. GI: Soft, nontender, and nondistended. Normal bowel sounds. EXTREMITIES: No edema. PSYCHIATRIC: Proper mood and affect. Alert and oriented x3. MEDICATIONS LIST: New medications, losartan 25 mg p.o. daily. Continued medications; 1. Cymbalta. 2. Aspirin. 3. Renvela. 4. Atorvastatin. 5. Plavix. 6. Gabapentin. 7. Metoprolol tartrate. 8. Hydralazine. 9. Ranolazine. 10. Nitroglycerin p.r.n. chest pain. 11. Glargine. 12. Lasix. Modified medications, isosorbide mononitrate was increased from 60 mg p.o. daily to 120 mg p.o. daily per Cardiology recommendation. Job ID: [id number]
== END 2020-02-27 13:33 | disposition home or self-care (01) ==
LOC: ERS 19:03 → 2NO 21:38
PROVIDERS: ADMIT Internal Medicine; ATTEND Internal Medicine
DX: I16.0 Hypertensive urgency (principal); I25.110 Atherosclerotic heart disease of native coronary artery with unstable angina pectoris; I12.0 Hypertensive chronic kidney disease with stage 5 chronic kidney disease or end stage renal disease; E11.22 Type 2 diabetes mellitus with diabetic chronic kidney disease; E11.40 Type 2 diabetes mellitus with diabetic neuropathy, unspecified; N18.6 End stage renal disease; E78.5 Hyperlipidemia, unspecified; F41.9 Anxiety disorder, unspecified; F32.9 Major depressive disorder, single episode, unspecified; I73.9 Peripheral vascular disease, unspecified; M79.7 Fibromyalgia; Z79.4 Long term (current) use of insulin; Z79.82 Long term (current) use of aspirin; Z79.899 Other long term (current) drug therapy; Z88.5 Allergy status to narcotic agent; Z95.5 Presence of coronary angioplasty implant and graft; Z99.2 Dependence on renal dialysis
CPT/HCPCS: 71045; 80053; 82550; 82962 ×3; 83690; 84484 ×3; 85025; 93005; 94760 ×3; 96374; 96375 ×2; 96376 ×2; 99285; G0378 ×4; 36415; 36416; 90935; G0257; J1644; J2270; J2405; J2550

== ENCOUNTER 2022-07-18 14:32 | Inpatient (IN) | payer MEDICARE ==
[2022-07-18 15:27] LABS: #Eosinphils 0.3 thou/uL (0.0-0.7); #Monocytes 0.6 thou/uL (0.11-0.59); #Neutrophils 7.4 thou/uL (1.40-6.50); %Basophils 0.5 % (0.0-1.0); %Eosinophils 2.8 % (0.0-10.0); %Lymphocytes 10.7 % (21.0-51.0); %Neutrophils 80.1 % (42.0-75.0); Hemoglobin 11.9 g/dL (12.0-16.0); Mean Corpuscular HGB CONC 32.9 g/dL (32.0-36.0); Mean Corpuscular Hemoglobin 31.7 pg (27.0-31.0); Mean Corpuscular Volume 96.2 fl (78.0-98.0); Platelet Count 287 thou/uL (130-400); RBC Distribution Width 12.4 % (11.5-14.5); Red Blood Cell (RBC) Count 3.76 mill/uL (4.20-5.40); White Blood Cell (WBC) Count 9.2 thou/uL (4.8-10.8)
[2022-07-18 15:38] LABS: ALT (SGPT) 9 U/L (8-55); AST (SGOT) 11 U/L (5-34); Albumin 3.5 g/dL (3.5-5.0); Alkaline Phosphatase 102 U/L (40-110); Anion Gap 20 mmol/L (10-20); BUN (Urea Nitrogen) 60 mg/dL (9.8-20.1); Bilirubin, Total 0.4 mg/dL (0.2-1.2); Calc. Creatinine Clearance 0 mL/min (70-130); Carbon Dioxide 18 mmol/L (22-29); Chloride 101 mmol/L (98-107); Estimated GFR 6; Globulin 3.9 g/dL (2.4-3.5); Glucose 386 mg/dL (70-105); Potassium 4.6 mmol/L (3.5-5.1); Protein, Total 7.4 g/dL (6.0-8.3); Sodium 134 mmol/L (136-145)
[2022-07-18 15:59] LABS: CKMB 3.9 ng/mL (0-6.6)
[2022-07-18] MEDS ORDERED: Aspirin Chewable 81 MG TAB ONE (18:25)
[2022-07-18] MEDS ORDERED: Ondansetron PF 4 MG/2 ML Vial ONE ×2 (18:26→18:35)
[2022-07-18] MEDS ORDERED: Furosemide 40 MG/4 ML VIAL ONE (18:26)
[2022-07-18] MEDS ORDERED: Nitroglycerin 2% Ointment 1 INCH/1 GM Packet ONE (18:26)
[2022-07-18] MEDS ORDERED: Labetalol HCl 100 MG/20 ML VIAL ONE (18:26)
[2022-07-18 19:31] LABS: Troponin I 0.091 ng/mL (< 0.028)
[2022-07-18] MEDS ORDERED: Dextrose 50% Abboject 50 ML SYRINGE SLOW IVP PRN (19:54)
[2022-07-18] MEDS ORDERED: HumaLOG 300 UNITS/3 ML VIAL SC PRN (19:54)
[2022-07-18] MEDS ORDERED: Dextrose 5% in Water 1,000 ML IV PRN (19:54)
[2022-07-18] MEDS ORDERED: Heparin 5,000 UNITS/ML VIAL SC SCH (21:00)
[2022-07-18 21:36] LABS: SARS-CoV-2 NAA Rapid Test Not Detected (NotDetected)
[2022-07-18 22:22] LABS: Troponin I 0.093 ng/mL (< 0.028)
[2022-07-18] MEDS ORDERED: Acetaminophen 325 MG TAB ONE (22:24)
[2022-07-18] MEDS: Acetaminophen 325 MG TAB PO PRN (22:32)
[2022-07-18] MEDS ORDERED: Metoprolol Tartrate 50 MG TAB ONE (23:33)
[2022-07-18] MEDS ORDERED: hydrALAZINE 25 MG TAB ONE (23:35)
[2022-07-18] MEDS: hydrALAZINE 25 MG TAB PO SCH (23:48)
[2022-07-18] MEDS: Metoprolol Tartrate 100 MG TAB PO SCH (23:50)
[2022-07-19] MEDS: Atorvastatin Calcium 40 MG TAB PO SCH ×2 (01:19→21:05)
[2022-07-19 04:58] LABS: #Eosinphils 0.3 thou/uL (0.0-0.7); #Lymphocytes 1.5 thou/uL (1.20-3.40); #Monocytes 0.7 thou/uL (0.11-0.59); #Neutrophils 5.3 thou/uL (1.40-6.50); %Basophils 0.5 % (0.0-1.0); %Monocytes 8.3 % (0.0-10.0); %Neutrophils 68.1 % (42.0-75.0); Hemoglobin 9.8 g/dL (12.0-16.0); Mean Corpuscular HGB CONC 32.2 g/dL (32.0-36.0); Mean Corpuscular Hemoglobin 30.7 pg (27.0-31.0); Mean Corpuscular Volume 95.3 fl (78.0-98.0); Mean Platelet Volume 7.2 fL (7.4-10.4); Platelet Count 247 thou/uL (130-400); RBC Distribution Width 12.5 % (11.5-14.5); White Blood Cell (WBC) Count 7.8 thou/uL (4.8-10.8)
[2022-07-19 05:14] LABS: Hemoglobin A1c 11.9 % (4.0-6.0)
[2022-07-19 05:43] LABS: Anion Gap 17 mmol/L (10-20); BUN (Urea Nitrogen) 65 mg/dL (9.8-20.1); CK (CPK) 86 U/L (29-168); Calc. Creatinine Clearance 0 mL/min (70-130); Calcium 8.9 mg/dL (7.8-10.44); Carbon Dioxide 21 mmol/L (22-29); Chloride 102 mmol/L (98-107); Estimated GFR 6; Glucose 337 mg/dL (70-105); Iron 44 ug/dL (50-170); Iron Binding Capacity, Total 226 mcg/dL (265-497); Potassium 4.6 mmol/L (3.5-5.1); Sodium 135 mmol/L (136-145)
[2022-07-19 05:58] LABS: Ferritin 323.45 ng/mL (10-291); Thyroid Stimulating Hormone 2.2676 uIU/mL (0.35-4.94)
[2022-07-19] MEDS ORDERED: Furosemide 40 MG/4 ML VIAL ONE (06:00)
[2022-07-19] MEDS ORDERED: Furosemide 40 MG/4 ML VIAL SLOW IVP SCH (06:00)
[2022-07-19] MEDS ORDERED: HYDROcodone/Acetaminophen 7.5/325 mg Tablet ONE (06:14)
[2022-07-19] MEDS ORDERED: HYDROcodone/Acetaminophen 7.5/325 mg Tablet PO SCH (06:15)
[2022-07-19] MEDS: Sevelamer Carbonate 800 MG TAB PO SCH ×3 (10:11→17:25)
[2022-07-19] MEDS: Aspirin 325 mg Enteric Coated Tablet PO SCH (10:12)
[2022-07-19] MEDS: HumaLOG 300 UNITS/3 ML VIAL SC PRN (11:38)
[2022-07-19] MEDS ORDERED: Heparin 10,000 UNITS/ 10 ML VIAL ONE (12:09)
[2022-07-19] MEDS: DULoxetine 60 MG CAP PO SCH (17:11)
[2022-07-19] MEDS: hydrALAZINE 25 MG TAB PO SCH (17:13)
[2022-07-19] MEDS: Clopidogrel Bisulfate 75 MG TAB PO SCH (17:24)
[2022-07-19] MEDS: Gabapentin 300 MG CAP PO SCH (17:24)
[2022-07-19] MEDS: Metoprolol Tartrate 100 MG TAB PO SCH ×2 (17:25→21:05)
[2022-07-19] MEDS: traMADol HCl 50 MG TAB PO PRN (17:25)
[2022-07-19] MEDS ORDERED: Atorvastatin Calcium 40 MG TAB PO SCH (21:00)
[2022-07-19] MEDS: Lisinopril 20 MG TAB PO SCH (21:05)
[2022-07-19] MEDS: Transdermal Patch Removal TOP SCH (21:21)
[2022-07-20] MEDS: Acetaminophen 325 MG TAB PO PRN ×2 (00:33→22:14)
[2022-07-20] MEDS ORDERED: Nystatin Ointment 15 GM TUBE TOP SCH (01:15)
[2022-07-20] MEDS: traMADol HCl 50 MG TAB PO PRN ×3 (01:26→16:29)
[2022-07-20] MEDS: Ondansetron ODT 4 MG TAB PO PRN ×2 (04:47→16:29)
[2022-07-20 05:42] LABS: #Basophils 0.1 thou/uL (0.0-0.2); #Eosinphils 0.3 thou/uL (0.0-0.7); #Lymphocytes 1.5 thou/uL (1.20-3.40); #Monocytes 0.6 thou/uL (0.11-0.59); %Basophils 0.8 % (0.0-1.0); %Lymphocytes 19.7 % (21.0-51.0); %Monocytes 8.6 % (0.0-10.0); %Neutrophils 66.9 % (42.0-75.0); Hemoglobin 10.5 g/dL (12.0-16.0); Mean Corpuscular HGB CONC 32.5 g/dL (32.0-36.0); Mean Corpuscular Hemoglobin 31.5 pg (27.0-31.0); Mean Corpuscular Volume 96.8 fl (78.0-98.0); Mean Platelet Volume 7.2 fL (7.4-10.4); Platelet Count 246 thou/uL (130-400); RBC Distribution Width 12.6 % (11.5-14.5); Red Blood Cell (RBC) Count 3.32 mill/uL (4.20-5.40); White Blood Cell (WBC) Count 7.4 thou/uL (4.8-10.8)
[2022-07-20 05:45] LABS: Anion Gap 14 mmol/L (10-20); BUN (Urea Nitrogen) 36 mg/dL (9.8-20.1); Calc. Creatinine Clearance 0 mL/min (70-130); Calcium 8.6 mg/dL (7.8-10.44); Carbon Dioxide 26 mmol/L (22-29); Chloride 100 mmol/L (98-107); Estimated GFR 9; Glucose 202 mg/dL (70-105); Potassium 4.1 mmol/L (3.5-5.1); Sodium 136 mmol/L (136-145)
[2022-07-20 05:51] LABS: Troponin I 0.075 ng/mL (< 0.028)
[2022-07-20] MEDS: HumaLOG 300 UNITS/3 ML VIAL SC PRN ×2 (06:16→11:19)
[2022-07-20] MEDS: Sevelamer Carbonate 800 MG TAB PO SCH ×3 (08:41→17:51)
[2022-07-20] MEDS: Aspirin 325 mg Enteric Coated Tablet PO SCH (08:42)
[2022-07-20] MEDS: Gabapentin 300 MG CAP PO SCH (08:42)
[2022-07-20] MEDS: Lisinopril 20 MG TAB PO SCH ×2 (08:42→20:17)
[2022-07-20] MEDS: Clopidogrel Bisulfate 75 MG TAB PO SCH (08:42)
[2022-07-20] MEDS: Insulin Glargine 30 UNITS/0.3 ML VIAL SC SCH ×2 (08:43→20:18)
[2022-07-20] MEDS: DULoxetine 60 MG CAP PO SCH (08:43)
[2022-07-20] MEDS: Metoprolol Tartrate 100 MG TAB PO SCH ×2 (08:43→20:16)
[2022-07-20] MEDS: Lidocaine 5% Patch TD SCH (08:44)
[2022-07-20] MEDS: Nystatin Ointment 15 GM TUBE TOP SCH ×2 (08:44→20:18)
[2022-07-20] MEDS: Ondansetron PF 4 MG/2 ML Vial IVP PRN ×2 (10:31→22:15)
[2022-07-20] MEDS ORDERED: Heparin 10,000 UNITS/ 10 ML VIAL ONE (12:08)
[2022-07-20] MEDS ORDERED: Cephalexin 250 MG CAP PO SCH (13:15)
[2022-07-20] MEDS: Cephalexin 250 MG CAP PO SCH (20:16)
[2022-07-20] MEDS: Nystatin Powder 15 GM BOT TOP SCH (20:17)
[2022-07-20] MEDS: Atorvastatin Calcium 40 MG TAB PO SCH (20:17)
[2022-07-20] MEDS: Transdermal Patch Removal TOP SCH (20:21)
[2022-07-21] MEDS: Ondansetron PF 4 MG/2 ML Vial IVP PRN ×2 (04:17→16:08)
[2022-07-21] MEDS: traMADol HCl 50 MG TAB PO PRN ×2 (07:06→16:08)
[2022-07-21] MEDS ORDERED: Promethazine HCl 25 MG in Sodium Chloride 0.9% 50 ML IVPB SCH ×2 (08:45→19:15)
[2022-07-21] MEDS ORDERED: Ergocalciferol 1.25 MG(50,000 UNITS) CAP PO SCH (09:00)
[2022-07-21] MEDS: Metoprolol Tartrate 100 MG TAB PO SCH ×2 (09:19→19:57)
[2022-07-21] MEDS: Gabapentin 300 MG CAP PO SCH (09:20)
[2022-07-21] MEDS: Clopidogrel Bisulfate 75 MG TAB PO SCH (09:20)
[2022-07-21] MEDS: Aspirin 325 mg Enteric Coated Tablet PO SCH (09:20)
[2022-07-21] MEDS: DULoxetine 60 MG CAP PO SCH (09:20)
[2022-07-21] MEDS: Cephalexin 250 MG CAP PO SCH (09:20)
[2022-07-21] MEDS: Lisinopril 20 MG TAB PO SCH ×2 (09:20→19:57)
[2022-07-21] MEDS: Sevelamer Carbonate 800 MG TAB PO SCH ×3 (09:20→16:08)
[2022-07-21] MEDS: Insulin Glargine 30 UNITS/0.3 ML VIAL SC SCH ×2 (09:21→21:16)
[2022-07-21] MEDS: Calcitriol 0.25 MCG CAP PO SCH (09:21)
[2022-07-21] MEDS: Nystatin Ointment 15 GM TUBE TOP SCH ×2 (09:22→19:58)
[2022-07-21] MEDS: Nystatin Powder 15 GM BOT TOP SCH ×2 (09:22→19:58)
[2022-07-21] MEDS: Lidocaine 5% Patch TD SCH (09:22)
[2022-07-21] MEDS ORDERED: Vancomycin 1 GM in Premix Bag 1 BAG IVPB SCH (11:30)
[2022-07-21] MEDS ORDERED: Heparin 10,000 UNITS/ 10 ML VIAL ONE (11:33)
[2022-07-21] MEDS ORDERED: Vancomycin Dialysis Sliding Scale (Wt > 99) FS SCH (11:45)
[2022-07-21] MEDS ORDERED: cefTRIAXone\\ROCEPHIN 2 GM in Sodium Chloride 0.9% 100 ML IVPB SCH ×2 (12:00→16:00)
[2022-07-21] MEDS: Atorvastatin Calcium 40 MG TAB PO SCH (19:57)
[2022-07-21] MEDS: Transdermal Patch Removal TOP SCH (20:05)
[2022-07-22] MEDS: traMADol HCl 50 MG TAB PO PRN ×3 (02:50→11:53)
[2022-07-22] MEDS: Ondansetron PF 4 MG/2 ML Vial IVP PRN ×2 (02:51→18:36)
[2022-07-22] MEDS ORDERED: Promethazine HCl 25 MG in Sodium Chloride 0.9% 50 ML IVPB SCH (05:45)
[2022-07-22 07:36] LABS: Vancomycin, Random 18.5 ug/mL (See Comment)
[2022-07-22] MEDS: Gabapentin 300 MG CAP PO SCH (10:18)
[2022-07-22] MEDS: Sevelamer Carbonate 800 MG TAB PO SCH ×3 (10:18→17:59)
[2022-07-22] MEDS: Calcitriol 0.25 MCG CAP PO SCH (10:18)
[2022-07-22] MEDS: Aspirin 325 mg Enteric Coated Tablet PO SCH (10:18)
[2022-07-22] MEDS: Nystatin Powder 15 GM BOT TOP SCH ×2 (10:18→22:19)
[2022-07-22] MEDS: Nystatin Ointment 15 GM TUBE TOP SCH ×3 (10:18→22:25)
[2022-07-22] MEDS: DULoxetine 60 MG CAP PO SCH (10:19)
[2022-07-22] MEDS: Clopidogrel Bisulfate 75 MG TAB PO SCH (10:19)
[2022-07-22] MEDS: Metoprolol Tartrate 100 MG TAB PO SCH ×2 (10:20→20:27)
[2022-07-22] MEDS: Insulin Glargine 30 UNITS/0.3 ML VIAL SC SCH ×2 (10:20→20:28)
[2022-07-22] MEDS: Lidocaine 5% Patch TD SCH (10:20)
[2022-07-22] MEDS: Lisinopril 20 MG TAB PO SCH ×2 (10:27→20:27)
[2022-07-22] MEDS: Ondansetron ODT 4 MG TAB PO PRN (11:47)
[2022-07-22] MEDS ORDERED: Vancomycin 1 GM in Premix Bag 1 BAG IVPB SCH (17:00)
[2022-07-22] MEDS: Transdermal Patch Removal TOP SCH (20:18)
[2022-07-22] MEDS: Atorvastatin Calcium 40 MG TAB PO SCH (20:27)
[2022-07-22] MEDS: Promethazine HCl 25 MG in Sodium Chloride 0.9% 50 ML IVPB PRN (23:12)
[2022-07-23] MEDS: traMADol HCl 50 MG TAB PO PRN ×2 (05:12→16:41)
[2022-07-23] MEDS: Promethazine HCl 25 MG in Sodium Chloride 0.9% 50 ML IVPB PRN ×2 (05:12→16:41)
[2022-07-23 05:14] LABS: #Basophils 0.1 thou/uL (0.0-0.2); #Eosinphils 0.5 thou/uL (0.0-0.7); #Lymphocytes 1.5 thou/uL (1.20-3.40); #Monocytes 0.8 thou/uL (0.11-0.59); #Neutrophils 6.5 thou/uL (1.40-6.50); %Basophils 1.1 % (0.0-1.0); %Lymphocytes 16.3 % (21.0-51.0); %Monocytes 8.4 % (0.0-10.0); %Neutrophils 69.2 % (42.0-75.0); Mean Corpuscular HGB CONC 31.4 g/dL (32.0-36.0); Mean Corpuscular Hemoglobin 31.6 pg (27.0-31.0); Mean Platelet Volume 8.6 fL (7.4-10.4); Platelet Count 141 thou/uL (130-400); RBC Distribution Width 12.6 % (11.5-14.5); White Blood Cell (WBC) Count 9.4 thou/uL (4.8-10.8)
[2022-07-23 05:28] LABS: Anion Gap 18 mmol/L (10-20); BUN (Urea Nitrogen) 28 mg/dL (9.8-20.1); Calc. Creatinine Clearance 25 mL/min (70-130); Calcium 9.6 mg/dL (7.8-10.44); Carbon Dioxide 25 mmol/L (22-29); Chloride 98 mmol/L (98-107); Estimated GFR 8; Glucose 151 mg/dL (70-105); Potassium 4.7 mmol/L (3.5-5.1); Sodium 136 mmol/L (136-145)
[2022-07-23] MEDS: Nystatin Ointment 15 GM TUBE TOP SCH ×2 (08:25→20:44)
[2022-07-23] MEDS: Metoprolol Tartrate 100 MG TAB PO SCH ×2 (08:26→20:41)
[2022-07-23] MEDS: Clopidogrel Bisulfate 75 MG TAB PO SCH (08:26)
[2022-07-23] MEDS: Gabapentin 300 MG CAP PO SCH (08:26)
[2022-07-23] MEDS: Sevelamer Carbonate 800 MG TAB PO SCH ×3 (08:26→17:38)
[2022-07-23] MEDS: Lisinopril 20 MG TAB PO SCH ×2 (08:27→20:42)
[2022-07-23] MEDS: Aspirin 325 mg Enteric Coated Tablet PO SCH (08:27)
[2022-07-23] MEDS: DULoxetine 60 MG CAP PO SCH (08:27)
[2022-07-23] MEDS: Calcitriol 0.25 MCG CAP PO SCH (08:27)
[2022-07-23] MEDS: Lidocaine 5% Patch TD SCH (08:28)
[2022-07-23] MEDS: Insulin Glargine 30 UNITS/0.3 ML VIAL SC SCH (08:28)
[2022-07-23] MEDS ORDERED: Heparin 10,000 UNITS/ 10 ML VIAL ONE (08:38)
[2022-07-23] MEDS ORDERED: Mag-Al Plus 1200 MG/1200 MG/120 MG/30 ML UDCUP PO PRN (10:14)
[2022-07-23] MEDS ORDERED: Bisacodyl 10 MG SUPP PR PRN (10:14)
[2022-07-23] MEDS ORDERED: Polyethylene Glycol 3350 17 GM Packet PO SCH (10:30)
[2022-07-23] MEDS: Nystatin Powder 15 GM BOT TOP SCH ×2 (14:49→20:44)
[2022-07-23] MEDS: Senokot S 8.6-50 MG TAB PO SCH (20:41)
[2022-07-23] MEDS: Atorvastatin Calcium 40 MG TAB PO SCH (20:42)
[2022-07-23] MEDS: Transdermal Patch Removal TOP SCH (20:45)
[2022-07-24] MEDS: Promethazine HCl 25 MG in Sodium Chloride 0.9% 50 ML IVPB PRN ×3 (00:26→18:21)
[2022-07-24] MEDS: traMADol HCl 50 MG TAB PO PRN ×3 (00:26→18:20)
[2022-07-24] MEDS: Gabapentin 300 MG CAP PO SCH (08:48)
[2022-07-24] MEDS: Aspirin 325 mg Enteric Coated Tablet PO SCH (08:48)
[2022-07-24] MEDS: DULoxetine 60 MG CAP PO SCH (08:49)
[2022-07-24] MEDS: Metoprolol Tartrate 100 MG TAB PO SCH ×2 (08:49→22:05)
[2022-07-24] MEDS: Calcitriol 0.25 MCG CAP PO SCH (08:49)
[2022-07-24] MEDS: Clopidogrel Bisulfate 75 MG TAB PO SCH (08:50)
[2022-07-24] MEDS: Senokot S 8.6-50 MG TAB PO SCH ×2 (08:50→22:06)
[2022-07-24] MEDS: Lisinopril 20 MG TAB PO SCH ×2 (08:50→22:05)
[2022-07-24] MEDS: Sevelamer Carbonate 800 MG TAB PO SCH ×3 (08:50→17:45)
[2022-07-24] MEDS: Lidocaine 5% Patch TD SCH (08:51)
[2022-07-24] MEDS: Polyethylene Glycol 3350 17 GM Packet PO SCH (08:51)
[2022-07-24] MEDS: Nystatin Ointment 15 GM TUBE TOP SCH ×2 (12:06→22:06)
[2022-07-24] MEDS: Nystatin Powder 15 GM BOT TOP SCH ×2 (12:06→22:06)
[2022-07-24] MEDS: HumaLOG 300 UNITS/3 ML VIAL SC PRN (12:31)
[2022-07-24] MEDS ORDERED: GoLYTELY 4,000 ml Bottle PO PRN (15:24)
[2022-07-24] MEDS ORDERED: Bisacodyl 10 MG SUPP PR SCH (15:30)
[2022-07-24] MEDS: Transdermal Patch Removal TOP SCH (22:06)
[2022-07-24] MEDS: Atorvastatin Calcium 40 MG TAB PO SCH (22:06)
[2022-07-25] MEDS: Promethazine HCl 25 MG in Sodium Chloride 0.9% 50 ML IVPB PRN ×2 (00:44→09:55)
[2022-07-25 05:31] LABS: Albumin 3.8 g/dL (3.5-5.0); Anion Gap 22 mmol/L (10-20); BUN (Urea Nitrogen) 28 mg/dL (9.8-20.1); BUN/Creatinine Ratio 4.03; Calc. Creatinine Clearance 22 mL/min (70-130); Calcium 9.5 mg/dL (7.8-10.44); Carbon Dioxide 21 mmol/L (22-29); Chloride 97 mmol/L (98-107); Estimated GFR 7; Glucose 159 mg/dL (70-105); Phosphorus 6.2 mg/dL (2.3-4.7); Potassium 4.9 mmol/L (3.5-5.1); Sodium 135 mmol/L (136-145)
[2022-07-25] MEDS: traMADol HCl 50 MG TAB PO PRN (05:57)
[2022-07-25] MEDS ORDERED: Iopamidol-370 76% 500 ML 1 ML ONE (08:45)
[2022-07-25] MEDS: Sevelamer Carbonate 800 MG TAB PO SCH ×3 (08:57→17:28)
[2022-07-25] MEDS: Lisinopril 20 MG TAB PO SCH ×2 (09:00→21:26)
[2022-07-25] MEDS: Metoprolol Tartrate 100 MG TAB PO SCH ×2 (09:00→21:26)
[2022-07-25] MEDS: Nystatin Ointment 15 GM TUBE TOP SCH ×2 (09:00→21:27)
[2022-07-25] MEDS: Nystatin Powder 15 GM BOT TOP SCH ×2 (09:01→21:27)
[2022-07-25] MEDS ORDERED: Cinacalcet HCl 30 MG TAB PO SCH (10:15)
[2022-07-25] MEDS: Calcitriol 0.25 MCG CAP PO SCH (12:29)
[2022-07-25] MEDS: Lidocaine 5% Patch TD SCH (14:33)
[2022-07-25] MEDS: DULoxetine 60 MG CAP PO SCH (14:33)
[2022-07-25] MEDS: Polyethylene Glycol 3350 17 GM Packet PO SCH (14:33)
[2022-07-25] MEDS: Scopolamine 1.5 mg/72 hour Patch TD SCH (14:55)
[2022-07-25] MEDS: Aspirin 325 mg Enteric Coated Tablet PO SCH (15:40)
[2022-07-25] MEDS: Gabapentin 300 MG CAP PO SCH (15:40)
[2022-07-25] MEDS: Clopidogrel Bisulfate 75 MG TAB PO SCH (15:40)
[2022-07-25] MEDS: Senokot S 8.6-50 MG TAB PO SCH ×2 (15:41→21:26)
[2022-07-25] MEDS: Ondansetron PF 4 MG/2 ML Vial IVP PRN (17:24)
[2022-07-25] MEDS ORDERED: Metoclopramide HCl 10 MG/2 ML VIAL IVP SCH (21:15)
[2022-07-25] MEDS: Atorvastatin Calcium 40 MG TAB PO SCH (21:26)
[2022-07-25] MEDS: Transdermal Patch Removal TOP SCH (21:27)
[2022-07-26] MEDS: Ondansetron PF 4 MG/2 ML Vial IVP PRN ×2 (03:19→21:30)
[2022-07-26] MEDS: traMADol HCl 50 MG TAB PO PRN ×2 (03:55→19:51)
[2022-07-26 07:59] LABS: Albumin 3.8 g/dL (3.5-5.0); Anion Gap 19 mmol/L (10-20); BUN (Urea Nitrogen) 23 mg/dL (9.8-20.1); Calc. Creatinine Clearance 27 mL/min (70-130); Calcium 9.6 mg/dL (7.8-10.44); Carbon Dioxide 25 mmol/L (22-29); Chloride 96 mmol/L (98-107); Estimated GFR 9; Glucose 125 mg/dL (70-105); Phosphorus 5.1 mg/dL (2.3-4.7); Potassium 3.5 mmol/L (3.5-5.1); Sodium 136 mmol/L (136-145)
[2022-07-26] MEDS: Sevelamer Carbonate 800 MG TAB PO SCH ×3 (08:18→16:56)
[2022-07-26] MEDS: Aspirin 325 mg Enteric Coated Tablet PO SCH (08:19)
[2022-07-26] MEDS: Clopidogrel Bisulfate 75 MG TAB PO SCH (08:19)
[2022-07-26] MEDS: Nystatin Ointment 15 GM TUBE TOP SCH ×2 (08:19→20:20)
[2022-07-26] MEDS: DULoxetine 60 MG CAP PO SCH (08:19)
[2022-07-26] MEDS: Metoprolol Tartrate 100 MG TAB PO SCH ×2 (08:19→20:18)
[2022-07-26] MEDS: Lisinopril 20 MG TAB PO SCH ×2 (08:19→20:18)
[2022-07-26] MEDS: Gabapentin 300 MG CAP PO SCH (08:19)
[2022-07-26] MEDS: Cinacalcet HCl 30 MG TAB PO SCH (08:19)
[2022-07-26] MEDS: Polyethylene Glycol 3350 17 GM Packet PO SCH (08:20)
[2022-07-26] MEDS: Senokot S 8.6-50 MG TAB PO SCH ×2 (08:20→20:18)
[2022-07-26] MEDS: Lidocaine 5% Patch TD SCH (08:20)
[2022-07-26] MEDS: Nystatin Powder 15 GM BOT TOP SCH ×2 (08:20→20:20)
[2022-07-26] MEDS ORDERED: Heparin 10,000 UNITS/ 10 ML VIAL ONE (10:11)
[2022-07-26] MEDS ORDERED: Metoclopramide HCl 10 MG/2 ML VIAL IVP SCH (15:15)
[2022-07-26] MEDS: Metoclopramide HCl 10 MG/2 ML VIAL IVP SCH (20:18)
[2022-07-26] MEDS: Atorvastatin Calcium 40 MG TAB PO SCH (20:19)
[2022-07-26] MEDS: Pantoprazole 40 MG VIAL IVP SCH (20:20)
[2022-07-26] MEDS: Transdermal Patch Removal TOP SCH (21:22)
[2022-07-27] MEDS: Metoclopramide HCl 10 MG/2 ML VIAL IVP SCH ×3 (05:16→20:30)
[2022-07-27 07:27] LABS: Albumin 3.7 g/dL (3.5-5.0); Anion Gap 14 mmol/L (10-20); BUN (Urea Nitrogen) 17 mg/dL (9.8-20.1); BUN/Creatinine Ratio 3.53; Calc. Creatinine Clearance 29 mL/min (70-130); Calcium 8.8 mg/dL (7.8-10.44); Carbon Dioxide 28 mmol/L (22-29); Chloride 97 mmol/L (98-107); Estimated GFR 10; Glucose 146 mg/dL (70-105); Lipase 82 U/L (8-78); Phosphorus 3.5 mg/dL (2.3-4.7); Potassium 3.8 mmol/L (3.5-5.1); Sodium 135 mmol/L (136-145)
[2022-07-27] MEDS: Cinacalcet HCl 30 MG TAB PO SCH (08:30)
[2022-07-27] MEDS: Aspirin 325 mg Enteric Coated Tablet PO SCH (08:30)
[2022-07-27] MEDS: Gabapentin 300 MG CAP PO SCH (08:30)
[2022-07-27] MEDS: Senokot S 8.6-50 MG TAB PO SCH ×2 (08:31→20:30)
[2022-07-27] MEDS: Clopidogrel Bisulfate 75 MG TAB PO SCH (08:31)
[2022-07-27] MEDS: Nystatin Ointment 15 GM TUBE TOP SCH ×2 (08:31→20:29)
[2022-07-27] MEDS: Sevelamer Carbonate 800 MG TAB PO SCH ×3 (08:31→17:04)
[2022-07-27] MEDS: Lidocaine 5% Patch TD SCH (08:31)
[2022-07-27] MEDS: DULoxetine 60 MG CAP PO SCH (08:31)
[2022-07-27] MEDS: Nystatin Powder 15 GM BOT TOP SCH ×2 (08:31→20:29)
[2022-07-27] MEDS: Polyethylene Glycol 3350 17 GM Packet PO SCH (08:32)
[2022-07-27] MEDS: Pantoprazole 40 MG VIAL IVP SCH ×2 (08:34→20:29)
[2022-07-27] MEDS: Metoprolol Tartrate 100 MG TAB PO SCH ×3 (08:35→20:30)
[2022-07-27] MEDS: Lisinopril 20 MG TAB PO SCH ×2 (08:35→20:30)
[2022-07-27] MEDS ORDERED: Heparin 10,000 UNITS/ 10 ML VIAL ONE (08:45)
[2022-07-27] MEDS: HumaLOG 300 UNITS/3 ML VIAL SC PRN (11:36)
[2022-07-27] MEDS: traMADol HCl 50 MG TAB PO PRN (16:00)
[2022-07-27] MEDS: Atorvastatin Calcium 40 MG TAB PO SCH (20:30)
[2022-07-27] MEDS: Transdermal Patch Removal TOP SCH (20:30)
[2022-07-28] MEDS: traMADol HCl 50 MG TAB PO PRN ×2 (03:03→16:39)
[2022-07-28] MEDS: Metoclopramide HCl 10 MG/2 ML VIAL IVP SCH ×2 (04:18→14:09)
[2022-07-28] MEDS: Lidocaine 5% Patch TD SCH (08:49)
[2022-07-28] MEDS: DULoxetine 60 MG CAP PO SCH (08:49)
[2022-07-28] MEDS: Lisinopril 20 MG TAB PO SCH ×2 (08:56→22:11)
[2022-07-28] MEDS: Senokot S 8.6-50 MG TAB PO SCH ×2 (08:56→22:11)
[2022-07-28] MEDS: Cinacalcet HCl 30 MG TAB PO SCH (08:56)
[2022-07-28] MEDS: Metoprolol Tartrate 100 MG TAB PO SCH ×2 (08:56→22:11)
[2022-07-28] MEDS: Sevelamer Carbonate 800 MG TAB PO SCH ×3 (08:56→16:34)
[2022-07-28] MEDS: Pantoprazole 40 MG VIAL IVP SCH ×2 (08:56→22:12)
[2022-07-28] MEDS: Clopidogrel Bisulfate 75 MG TAB PO SCH (08:56)
[2022-07-28] MEDS: Nystatin Ointment 15 GM TUBE TOP SCH ×2 (08:57→22:12)
[2022-07-28] MEDS: Gabapentin 300 MG CAP PO SCH (08:57)
[2022-07-28] MEDS: Aspirin 325 mg Enteric Coated Tablet PO SCH (08:57)
[2022-07-28] MEDS: Nystatin Powder 15 GM BOT TOP SCH ×2 (08:57→22:12)
[2022-07-28] MEDS: Polyethylene Glycol 3350 17 GM Packet PO SCH (08:57)
[2022-07-28] MEDS: Scopolamine 1.5 mg/72 hour Patch TD SCH (11:28)
[2022-07-28] MEDS ORDERED: Metoclopramide HCl 10 MG TAB PO PRN (18:08)
[2022-07-28] MEDS: Atorvastatin Calcium 40 MG TAB PO SCH (22:11)
[2022-07-28] MEDS: Transdermal Patch Removal TOP SCH (22:13)
[2022-07-29] MEDS: traMADol HCl 50 MG TAB PO PRN ×2 (06:13→14:41)
[2022-07-29] MEDS: DULoxetine 60 MG CAP PO SCH (08:10)
[2022-07-29] MEDS: Metoprolol Tartrate 100 MG TAB PO SCH (08:10)
[2022-07-29] MEDS: Lisinopril 20 MG TAB PO SCH (08:10)
[2022-07-29] MEDS: Polyethylene Glycol 3350 17 GM Packet PO SCH (08:10)
[2022-07-29] MEDS: Lidocaine 5% Patch TD SCH (08:10)
[2022-07-29] MEDS: Pantoprazole 40 MG VIAL IVP SCH (08:10)
[2022-07-29] MEDS: Cinacalcet HCl 30 MG TAB PO SCH (08:18)
[2022-07-29] MEDS: Aspirin 325 mg Enteric Coated Tablet PO SCH (08:18)
[2022-07-29] MEDS: Sevelamer Carbonate 800 MG TAB PO SCH ×2 (08:18→11:10)
[2022-07-29] MEDS: Nystatin Ointment 15 GM TUBE TOP SCH (08:18)
[2022-07-29] MEDS: Clopidogrel Bisulfate 75 MG TAB PO SCH (08:18)
[2022-07-29] MEDS: Gabapentin 300 MG CAP PO SCH (08:18)
[2022-07-29] MEDS: Senokot S 8.6-50 MG TAB PO SCH (08:18)
[2022-07-29] MEDS: Nystatin Powder 15 GM BOT TOP SCH (08:19)
[2022-07-29 15:02] VITALS: BP 152/72; TEMP 97.9
[2022-07-29] MEDS ORDERED: Ondansetron ODT 4 MG TAB PO SCH (15:15)
== END 2022-07-29 14:50 | DRG 640 ==
LOC: ERS 14:32 → ERHOLD 18:33 → 2SW 07-19 09:57 → OBSVTOIN 07-19 12:23 → T4-A 07-25 13:52
PROVIDERS: ADMIT Internal Medicine; ATTEND Internal Medicine
PROC: 5A1D70Z Performance of Urinary Filtration, Intermittent, Less than 6 Hours Per Day (ICD-10-PCS; principal; 2022-07-19)
DX: E87.70 Fluid overload, unspecified (principal); Z20.822 Contact with and (suspected) exposure to COVID-19; I50.43 Acute on chronic combined systolic (congestive) and diastolic (congestive) heart failure; N18.6 End stage renal disease; I13.2 Hypertensive heart and chronic kidney disease with heart failure and with stage 5 chronic kidney disease, or end stage renal disease; Z68.41 Body mass index [BMI] 40.0-44.9, adult; N25.81 Secondary hyperparathyroidism of renal origin; L03.115 Cellulitis of right lower limb; F32.A Depression, unspecified; F41.9 Anxiety disorder, unspecified; F39 Unspecified mood [affective] disorder; E11.22 Type 2 diabetes mellitus with diabetic chronic kidney disease; E11.40 Type 2 diabetes mellitus with diabetic neuropathy, unspecified; I25.10 Atherosclerotic heart disease of native coronary artery without angina pectoris; M79.7 Fibromyalgia; E11.51 Type 2 diabetes mellitus with diabetic peripheral angiopathy without gangrene; R20.2 Paresthesia of skin; D63.1 Anemia in chronic kidney disease; Z96.612 Presence of left artificial shoulder joint; E66.9 Obesity, unspecified; E78.2 Mixed hyperlipidemia; I80.01 Phlebitis and thrombophlebitis of superficial vessels of right lower extremity; E55.9 Vitamin D deficiency, unspecified; E11.43 Type 2 diabetes mellitus with diabetic autonomic (poly)neuropathy; K31.84 Gastroparesis; G25.3 Myoclonus; T43.3X5A Adverse effect of phenothiazine antipsychotics and neuroleptics, initial encounter; E11.65 Type 2 diabetes mellitus with hyperglycemia; Z91.15 Patient's noncompliance with renal dialysis; Z99.2 Dependence on renal dialysis; Z88.8 Allergy status to other drugs, medicaments and biological substances; Z79.899 Other long term (current) drug therapy; Z79.82 Long term (current) use of aspirin; Z79.02 Long term (current) use of antithrombotics/antiplatelets; Z79.4 Long term (current) use of insulin; I25.2 Old myocardial infarction; Z95.5 Presence of coronary angioplasty implant and graft; Z89.512 Acquired absence of left leg below knee; Z87.891 Personal history of nicotine dependence
CPT/HCPCS: 36415; 36416; 71045; 71275; 80048; 80053; 80069; 80202; 82306; 82550; 82553; 82607; 82728; 83036; 83540; 83550; 83690; 83735; 83880; 83970; 84100; 84443; 84484; 85025; 87040; 87811; 90935; 93005; 96374; 96375; C9113; G0257; J0696; J1644; J1815; J1940; J2405; J2550; J2765; J3370; J3490; J7030; Q0162; Q9967; U0002

== ENCOUNTER 2022-08-01 08:51 | Emergency (ER) | payer MEDICARE ==
[2022-08-01] MEDS ORDERED: levETIRAcetam 500 MG/5 ML VIAL ONE ×3 (09:12→09:16)
[2022-08-01] MEDS ORDERED: Lorazepam 2 MG/ML VIAL ONE (09:12)
[2022-08-01] MEDS ORDERED: Propofol 500 MG/50 ML VIAL ONE (09:27)
[2022-08-01] MEDS ORDERED: Rocuronium Bromide 10 MG/ML (10ML VIAL) ONE (09:27)
[2022-08-01] MEDS ORDERED: Propofol 1,000 MG/100 ML VIAL IV ONE ×2 (09:39→13:12)
[2022-08-01] MEDS ORDERED: FENTANYL 50 MCG/ML 1 ML VIAL ONE ×3 (09:41→11:24)
[2022-08-01] MEDS ORDERED: CALCIUM GLUC 1GM/NS 50ML BAG ONE (09:43)
[2022-08-01] MEDS ORDERED: Sodium Bicarb 50 MEQ/50 ML Abboject 8.4% SYRINGE ONE (09:44)
[2022-08-01] MEDS ORDERED: NOREPINEPHRINE 8 MG/250 ML-D5W 250 ML ONE (09:58)
[2022-08-01 10:13] LABS: Actual Bicarbonate (HCO3a) 22.7 mEq/L (22-28); Analyzer IN Cardio ER; Base Excess (BEa) -1.4 mEq/L (-2.0 to +3.0); CO2 Tension 35.9 mmHg (35.0-45.0); Calcium, Ionized (arterial) 1.08 mmol/L (1.12-1.30); Carboxyhemoglobin (COHb) 0.6 gm% (0.0-3.0); O2 Tension (PaO2), arterial 150.7 mmHg (80.0-100.0); Potassium - ABG Lab 3.94 mmol/L (3.70-5.30); pH, Arterial 7.42 (7.35-7.45)
[2022-08-01 10:18] LABS: Puncture Site RBA
[2022-08-01 10:19] LABS: ALV-art Gradient 303.525 mmHg (0-20)
[2022-08-01 10:29] LABS: #Eosinphils 0.1 thou/uL (0.0-0.7); #Lymphocytes 1.2 thou/uL (1.20-3.40); #Monocytes 1.9 thou/uL (0.11-0.59); #Neutrophils 14.5 thou/uL (1.40-6.50); %Basophils 0.3 % (0.0-1.0); %Eosinophils 0.7 % (0.0-10.0); %Lymphocytes 6.6 % (21.0-51.0); %Monocytes 10.7 % (0.0-10.0); %Neutrophils 81.7 % (42.0-75.0); Hemoglobin 13.2 g/dL (12.0-16.0); Mean Corpuscular HGB CONC 31.3 g/dL (32.0-36.0); Mean Corpuscular Hemoglobin 30.2 pg (27.0-31.0); Mean Corpuscular Volume 96.3 fl (78.0-98.0); Mean Platelet Volume 8.1 fL (7.4-10.4); Platelet Count 230 10x3/uL (130-400); RBC Distribution Width 12.9 % (11.5-14.5); Red Blood Cell (RBC) Count 4.36 mill/uL (4.20-5.40); White Blood Cell (WBC) Count 17.7 10x3/uL (4.8-10.8)
[2022-08-01 10:47] LABS: ALT (SGPT) 12 U/L (8-55); AST (SGOT) 23 U/L (5-34); Albumin 3.8 g/dL (3.5-5.0); Alkaline Phosphatase 101 U/L (40-110); Anion Gap 23 mmol/L (10-20); BUN (Urea Nitrogen) 50 mg/dL (9.8-20.1); Bilirubin, Total 0.5 mg/dL (0.2-1.2); Calc. Creatinine Clearance 0 mL/min (70-130); Carbon Dioxide 21 mmol/L (22-29); Chloride 96 mmol/L (98-107); Estimated GFR 4; Globulin 3.8 g/dL (2.4-3.5); Glucose 91 mg/dL (70-105); Potassium 4.3 mmol/L (3.5-5.1); Protein, Total 7.6 g/dL (6.0-8.3); Sodium 136 mmol/L (136-145)
[2022-08-01 10:58] LABS: Amphetamine Not Detected (NotDetected); Barbiturates Screen Not Detected (NotDetected); Benzodiazepine Screen Not Detected (NotDetected); Cocaine Metabolite Screen Not Detected (NotDetected); Methadone Not Detected (NotDetected); Methamphetamine Not Detected (NotDetected); Opiate Screen Not Detected (NotDetected); Oxycodone Screen Not Detected (NotDetected); Phencyclidine (PCP) Not Detected (NotDetected); THC/Cannabinoid Screen Not Detected (NotDetected); Tricyclic Screen Not Detected (NotDetected)
[2022-08-01 11:01] LABS: Bilirubin Small (Negative); Blood, Urine Trace (Negative); Glucose, Urine (Dipstick) 100 mg/dL (Negative); Ketone, Urine Trace mg/dL (Negative); Leukocyte Negative (Negative); Nitrite Positive (Negative); Protein, Urine (Dipstick) > or equal to 300 mg/dL (Neg-Trace); Urobilinogen 0.2 mg/dL (Less than 2); pH, Urine 5.5 (5.0-9.0)
[2022-08-01 11:06] LABS: Clarity Hazy (Clear)
[2022-08-01 11:08] LABS: RBC/HPF 0-3 HPF (0-3)
[2022-08-01 11:09] LABS: Bacteria/HPF 2+ HPF (None Seen); Transitional Epithelial 0-3 HPF (None Seen)
[2022-08-01] MEDS ORDERED: Vancomycin 1.5 GRAM/300 ML BAG 1.5 GM in Premix Bag 1 BAG IVPB SCH (11:30)
[2022-08-01] MEDS ORDERED: Fentanyl CADD 100 ML IVPB SCH (12:00)
[2022-08-01] MEDS ORDERED: Cefepime 2 GM VIAL ONE (12:28)
== END 2022-08-01 13:15 | disposition short-term general hospital (02) ==
LOC: ERS 08:51
DX: G40.901 Epilepsy, unspecified, not intractable, with status epilepticus (principal); J96.90 Respiratory failure, unspecified, unspecified whether with hypoxia or hypercapnia; E11.9 Type 2 diabetes mellitus without complications; Z79.4 Long term (current) use of insulin; E78.00 Pure hypercholesterolemia, unspecified; I10 Essential (primary) hypertension; Z87.891 Personal history of nicotine dependence; Z79.899 Other long term (current) drug therapy; Z79.82 Long term (current) use of aspirin
CPT/HCPCS: 36600; 70450; 71045; 80053; 80306; 82553; 82805; 82962; 83605; 83880; 84146; 84484; 85025; 87040; 87077; 87149 ×2; 93005; 94002; J0610; J1953; J3010 ×2; J3370; 31500; 36415; 36416; 36556; 51702; 81003; 81015; 87186; 96365; 96366; 96367; 96374; 96375; 96376; J0692; J2060; J2704

== ENCOUNTER 2022-10-03 13:38 | Inpatient (IN) | payer MEDICARE ==
[~2022-10-03 13:38] MED LIST: Heparin 10,000 UNITS/ 10 ML VIAL ONE; Iopamidol-370 76% 500 ML 1 ML ONE
[2022-10-03 14:41] LABS: #Eosinphils 0.4 thou/uL (0.0-0.7); #Lymphocytes 1.5 thou/uL (1.20-3.40); #Monocytes 0.4 thou/uL (0.11-0.59); #Neutrophils 4.9 thou/uL (1.40-6.50); %Basophils 0.4 % (0.0-1.0); %Lymphocytes 20.5 % (21.0-51.0); %Monocytes 5.9 % (0.0-10.0); %Neutrophils 68.3 % (42.0-75.0); Mean Corpuscular HGB CONC 33.4 g/dL (32.0-36.0); Mean Corpuscular Hemoglobin 32.6 pg (27.0-31.0); Mean Corpuscular Volume 97.5 fl (78.0-98.0); Mean Platelet Volume 6.9 fL (7.4-10.4); Platelet Count 278 10x3/uL (130-400); RBC Distribution Width 13.7 % (11.5-14.5); Red Blood Cell (RBC) Count 3.38 mill/uL (4.20-5.40); White Blood Cell (WBC) Count 7.2 10x3/uL (4.8-10.8)
[2022-10-03 15:26] LABS: ALT (SGPT) 32 U/L (8-55); AST (SGOT) 53 U/L (5-34); Albumin 3.9 g/dL (3.5-5.0); Alkaline Phosphatase 108 U/L (40-110); Anion Gap 22 mmol/L (10-20); BUN (Urea Nitrogen) 52 mg/dL (9.8-20.1); Bilirubin, Total 0.5 mg/dL (0.2-1.2); Calc. Creatinine Clearance 0 mL/min (70-130); Calcium 9.3 mg/dL (7.8-10.44); Carbon Dioxide 24 mmol/L (22-29); Chloride 97 mmol/L (98-107); Estimated GFR 5; Globulin 3.3 g/dL (2.4-3.5); Glucose 305 mg/dL (70-105); Lipase 100 U/L (8-78); Potassium 5.3 mmol/L (3.5-5.1); Protein, Total 7.2 g/dL (6.0-8.3); Sodium 138 mmol/L (136-145)
[2022-10-03] MEDS ORDERED: Morphine 4 MG/ML VIAL ONE (16:32)
[2022-10-03] MEDS ORDERED: Ondansetron PF 4 MG/2 ML Vial ONE (16:32)
[2022-10-03] MEDS ORDERED: Acetaminophen 325 MG TAB PO PRN ×2 (19:09→22:57)
[2022-10-03] MEDS ORDERED: Dextrose 5% in Water 1,000 ML IV PRN (19:13)
[2022-10-03] MEDS ORDERED: Dextrose 50% Abboject 50 ML SYRINGE SLOW IVP PRN (19:13)
[2022-10-03] MEDS ORDERED: HumaLOG 300 UNITS/3 ML VIAL SC PRN ×2 (19:13)
[2022-10-03 20:51] LABS: Troponin I 0.017 ng/mL (< 0.028)
[2022-10-03] MEDS ORDERED: Heparin 5,000 UNITS/ML VIAL SC SCH (21:00)
[2022-10-03] MEDS ORDERED: Morphine 4 MG/ML VIAL SLOW IVP SCH (22:30)
[2022-10-03 22:45] LABS: HBSAg Index 0.35 S/CO (0-0.99); Hep B Surf Ag Non-Reactive S/CO (NonReactive)
[2022-10-03 22:46] LABS: HBSAB Concentration 391.92 mIU/mL; Hep B Surf AB Reactive (NonReactive)
[2022-10-03 22:52] VITALS: BMI 45.7
[2022-10-03 23:10] LABS: Troponin I 0.018 ng/mL (< 0.028)
[2022-10-04 00:03] LABS: Hemoglobin A1c 7.7 % (4.0-6.0)
[2022-10-04] MEDS: HYDROcodone/Acetaminophen 10/325 mg Tablet PO PRN ×2 (03:10→17:17)
[2022-10-04] MEDS ORDERED: Morphine 4 MG/ML VIAL SLOW IVP PRN (04:46)
[2022-10-04] MEDS ORDERED: Scopolamine 1.5 mg/72 hour Patch TD SCH (06:00)
[2022-10-04] MEDS ORDERED: Heparin 10,000 UNITS/ 10 ML VIAL ONE (08:31)
[2022-10-04 08:32] LABS: Albumin 3.3 g/dL (3.5-5.0)
[2022-10-04 08:34] LABS: Calcium 9.2 mg/dL (7.8-10.44); Chloride 102 mmol/L (98-107); Sodium 136 mmol/L (136-145)
[2022-10-04 08:35] LABS: Globulin 3.6 g/dL (2.4-3.5); Glucose 163 mg/dL (70-105); Protein, Total 6.9 g/dL (6.0-8.3)
[2022-10-04 08:36] LABS: Anion Gap 20 mmol/L (10-20)
[2022-10-04 08:37] LABS: Bilirubin, Total 0.5 mg/dL (0.2-1.2); Carbon Dioxide 19 mmol/L (22-29)
[2022-10-04 08:38] LABS: Alkaline Phosphatase 100 U/L (40-110); Calc. Creatinine Clearance 23 mL/min (70-130); Estimated GFR 7
[2022-10-04 08:39] LABS: BUN (Urea Nitrogen) 32 mg/dL (9.8-20.1)
[2022-10-04 08:40] LABS: AST (SGOT) 61 U/L (5-34)
[2022-10-04 08:41] LABS: ALT (SGPT) 39 U/L (8-55)
[2022-10-04] MEDS ORDERED: Insulin Glargine 30 UNITS/0.3 ML VIAL SC SCH ×2 (09:00→21:00)
[2022-10-04] MEDS: Cinacalcet HCl 30 MG TAB PO SCH ×3 (09:04→17:17)
[2022-10-04] MEDS: Metoclopramide HCl 10 MG TAB PO SCH ×3 (09:04→17:17)
[2022-10-04] MEDS: Sevelamer Carbonate 800 MG TAB PO SCH ×3 (09:04→17:17)
[2022-10-04] MEDS: Sacubitril 49 MG/Valsartan 51 MG TABLET PO SCH ×2 (09:05→20:46)
[2022-10-04] MEDS: Carvedilol 6.25 MG TAB PO SCH ×2 (09:05→20:46)
[2022-10-04] MEDS: Heparin 5,000 UNITS/ML VIAL SC SCH ×3 (09:05→20:46)
[2022-10-04] MEDS ORDERED: Morphine 2 MG/ML VIAL SLOW IVP SCH (11:00)
[2022-10-04] MEDS: Gabapentin 300 MG CAP PO SCH (15:45)
[2022-10-04] MEDS: Aspirin 81 mg Enteric Coated Tablet PO SCH (15:45)
[2022-10-04] MEDS: levETIRAcetam 500 MG TAB PO SCH (15:45)
[2022-10-04] MEDS: Clopidogrel Bisulfate 75 MG TAB PO SCH (15:45)
[2022-10-04] MEDS: Lidocaine 5% Patch TD SCH (15:46)
[2022-10-04] MEDS ORDERED: levETIRAcetam 500 MG TAB PO SCH (17:00)
[2022-10-04] MEDS: Insulin Glargine 30 UNITS/0.3 ML VIAL SC SCH (20:47)
[2022-10-04] MEDS: hydrOXYzine 25 MG TAB PO PRN (20:48)
[2022-10-05] MEDS: LIDOCAINE Patch Removal TOP SCH (00:12)
[2022-10-05] MEDS: HYDROcodone/Acetaminophen 10/325 mg Tablet PO PRN ×3 (01:30→17:08)
[2022-10-05 05:11] LABS: #Eosinphils 0.3 thou/uL (0.0-0.7); #Lymphocytes 1.8 thou/uL (1.20-3.40); #Monocytes 0.7 thou/uL (0.11-0.59); #Neutrophils 3.4 thou/uL (1.40-6.50); %Basophils 0.8 % (0.0-1.0); %Eosinophils 5.1 % (0.0-10.0); %Lymphocytes 29.3 % (21.0-51.0); %Monocytes 10.3 % (0.0-10.0); %Neutrophils 54.6 % (42.0-75.0); Hemoglobin 11.5 g/dL (12.0-16.0); Mean Corpuscular HGB CONC 32.6 g/dL (32.0-36.0); Mean Corpuscular Hemoglobin 32.1 pg (27.0-31.0); Mean Corpuscular Volume 98.5 fl (78.0-98.0); Mean Platelet Volume 6.7 fL (7.4-10.4); Platelet Count 239 10x3/uL (130-400); RBC Distribution Width 13.7 % (11.5-14.5); Red Blood Cell (RBC) Count 3.57 mill/uL (4.20-5.40); White Blood Cell (WBC) Count 6.3 10x3/uL (4.8-10.8)
[2022-10-05 05:26] LABS: ALT (SGPT) 45 U/L (8-55); AST (SGOT) 44 U/L (5-34); Albumin 3.7 g/dL (3.5-5.0); Alkaline Phosphatase 110 U/L (40-110); Anion Gap 17 mmol/L (10-20); BUN (Urea Nitrogen) 19 mg/dL (9.8-20.1); Bilirubin, Total 0.5 mg/dL (0.2-1.2); Calc. Creatinine Clearance 30 mL/min (70-130); Calcium 9.2 mg/dL (7.8-10.44); Carbon Dioxide 26 mmol/L (22-29); Chloride 98 mmol/L (98-107); Estimated GFR 10; Globulin 3.6 g/dL (2.4-3.5); Glucose 172 mg/dL (70-105); Potassium 4.1 mmol/L (3.5-5.1); Protein, Total 7.3 g/dL (6.0-8.3); Sodium 137 mmol/L (136-145)
[2022-10-05] MEDS: Aspirin 81 mg Enteric Coated Tablet PO SCH (08:51)
[2022-10-05] MEDS: Metoclopramide HCl 10 MG TAB PO SCH ×3 (08:51→15:57)
[2022-10-05] MEDS: levETIRAcetam 500 MG TAB PO SCH (08:51)
[2022-10-05] MEDS: Clopidogrel Bisulfate 75 MG TAB PO SCH (08:51)
[2022-10-05] MEDS: Cinacalcet HCl 30 MG TAB PO SCH ×4 (08:51→15:57)
[2022-10-05] MEDS: Heparin 5,000 UNITS/ML VIAL SC SCH ×3 (08:51→21:31)
[2022-10-05] MEDS: Gabapentin 300 MG CAP PO SCH ×2 (08:51→11:08)
[2022-10-05] MEDS: Sevelamer Carbonate 800 MG TAB PO SCH ×4 (08:52→15:57)
[2022-10-05] MEDS: Sacubitril 49 MG/Valsartan 51 MG TABLET PO SCH ×2 (08:52→21:35)
[2022-10-05] MEDS: Carvedilol 6.25 MG TAB PO SCH ×2 (08:52→21:35)
[2022-10-05] MEDS ORDERED: Insulin Glargine 30 UNITS/0.3 ML VIAL SC SCH (09:00)
[2022-10-05] MEDS: Lidocaine 5% Patch TD SCH (15:57)
[2022-10-05] MEDS: Pepto Bismol Chew TAB PO PRN (15:57)
[2022-10-05] MEDS ORDERED: Acetaminophen 325 MG TAB PO PRN (16:23)
[2022-10-05] MEDS: hydrOXYzine 25 MG TAB PO PRN (21:35)
[2022-10-05] MEDS: Insulin Glargine 30 UNITS/0.3 ML VIAL SC SCH (21:36)
[2022-10-06] MEDS: LIDOCAINE Patch Removal TOP SCH (04:43)
[2022-10-06] MEDS: HYDROcodone/Acetaminophen 10/325 mg Tablet PO PRN ×2 (04:43→15:59)
[2022-10-06] MEDS: Insulin Glargine 30 UNITS/0.3 ML VIAL SC SCH ×2 (08:21→21:46)
[2022-10-06] MEDS: Heparin 5,000 UNITS/ML VIAL SC SCH ×3 (08:22→21:46)
[2022-10-06] MEDS: Carvedilol 6.25 MG TAB PO SCH ×2 (08:22→21:46)
[2022-10-06] MEDS: Clopidogrel Bisulfate 75 MG TAB PO SCH (08:23)
[2022-10-06] MEDS: Aspirin 81 mg Enteric Coated Tablet PO SCH (08:23)
[2022-10-06] MEDS: Sevelamer Carbonate 800 MG TAB PO SCH ×3 (08:23→17:08)
[2022-10-06] MEDS: Cinacalcet HCl 30 MG TAB PO SCH ×3 (08:23→17:08)
[2022-10-06] MEDS: Sacubitril 49 MG/Valsartan 51 MG TABLET PO SCH ×2 (08:24→21:46)
[2022-10-06] MEDS: Metoclopramide HCl 10 MG TAB PO SCH ×3 (08:24→17:08)
[2022-10-06] MEDS: Gabapentin 300 MG CAP PO SCH (08:24)
[2022-10-06] MEDS ORDERED: Heparin 10,000 UNITS/ 10 ML VIAL ONE (08:57)
[2022-10-06] MEDS ORDERED: levETIRAcetam 500 MG TAB PO SCH (09:00)
[2022-10-06] MEDS ORDERED: Insulin Glargine 30 UNITS/0.3 ML VIAL SC SCH ×2 (09:00)
[2022-10-06] MEDS: Lidocaine 5% Patch TD SCH ×2 (16:01→16:05)
[2022-10-07] MEDS ORDERED: FLU VACC QS2022-23(6MOS UP)/PF 60 MCG/0.5 ML SYRINGE IM ONE (00:15)
[2022-10-07] MEDS: HYDROcodone/Acetaminophen 10/325 mg Tablet PO PRN ×2 (00:31→12:42)
[2022-10-07] MEDS ORDERED: Ondansetron ODT 4 MG TAB PO SCH (02:00)
[2022-10-07] MEDS: LIDOCAINE Patch Removal TOP SCH (04:13)
[2022-10-07] MEDS ORDERED: levETIRAcetam 500 MG TAB PO SCH (09:00)
[2022-10-07] MEDS ORDERED: Heparin 10,000 UNITS/ 10 ML VIAL ONE (09:01)
[2022-10-07] MEDS: Carvedilol 6.25 MG TAB PO SCH (09:30)
[2022-10-07] MEDS: Heparin 5,000 UNITS/ML VIAL SC SCH ×2 (09:30→14:41)
[2022-10-07] MEDS: Insulin Glargine 30 UNITS/0.3 ML VIAL SC SCH (09:30)
[2022-10-07] MEDS: Cinacalcet HCl 30 MG TAB PO SCH ×3 (09:31→18:46)
[2022-10-07] MEDS: Clopidogrel Bisulfate 75 MG TAB PO SCH (09:31)
[2022-10-07] MEDS: Gabapentin 300 MG CAP PO SCH (09:31)
[2022-10-07] MEDS: Metoclopramide HCl 10 MG TAB PO SCH ×3 (09:31→18:46)
[2022-10-07] MEDS: Sevelamer Carbonate 800 MG TAB PO SCH ×3 (09:32→18:47)
[2022-10-07] MEDS: Aspirin 81 mg Enteric Coated Tablet PO SCH (09:32)
[2022-10-07] MEDS: Sacubitril 49 MG/Valsartan 51 MG TABLET PO SCH (09:32)
[2022-10-07] MEDS: Pepto Bismol Chew TAB PO PRN (10:54)
[2022-10-07] MEDS: Lidocaine 5% Patch TD SCH (14:41)
[2022-10-07 18:21] VITALS: BP 130/50; TEMP 98
== END 2022-10-07 19:04 | disposition home health service (06) | DRG 73 ==
LOC: ERS 13:38 → 2NO 18:51 → OBSVTOIN 10-04 15:18
PROVIDERS: ADMIT Family Medicine; ATTEND Student in an Organized Health Care Education/Training Program
PROC: 5A1D70Z Performance of Urinary Filtration, Intermittent, Less than 6 Hours Per Day (ICD-10-PCS; principal; 2022-10-04)
DX: M54.12 Radiculopathy, cervical region (principal); N18.6 End stage renal disease; Z68.42 Body mass index [BMI] 45.0-49.9, adult; I50.42 Chronic combined systolic (congestive) and diastolic (congestive) heart failure; N25.81 Secondary hyperparathyroidism of renal origin; Z20.822 Contact with and (suspected) exposure to COVID-19; E78.5 Hyperlipidemia, unspecified; I25.10 Atherosclerotic heart disease of native coronary artery without angina pectoris; M79.7 Fibromyalgia; E11.40 Type 2 diabetes mellitus with diabetic neuropathy, unspecified; E11.22 Type 2 diabetes mellitus with diabetic chronic kidney disease; G40.909 Epilepsy, unspecified, not intractable, without status epilepticus; Z96.652 Presence of left artificial knee joint; R94.31 Abnormal electrocardiogram [ECG] [EKG]; I11.0 Hypertensive heart disease with heart failure; E66.01 Morbid (severe) obesity due to excess calories; E87.5 Hyperkalemia; D63.1 Anemia in chronic kidney disease; Z28.21 Immunization not carried out because of patient refusal; Z99.2 Dependence on renal dialysis; Z95.5 Presence of coronary angioplasty implant and graft; I25.2 Old myocardial infarction; Z87.891 Personal history of nicotine dependence; Z88.5 Allergy status to narcotic agent; Z88.8 Allergy status to other drugs, medicaments and biological substances; Z79.899 Other long term (current) drug therapy; Z79.02 Long term (current) use of antithrombotics/antiplatelets; Z79.4 Long term (current) use of insulin; Z89.512 Acquired absence of left leg below knee; Z90.710 Acquired absence of both cervix and uterus; Z90.49 Acquired absence of other specified parts of digestive tract; Z83.3 Family history of diabetes mellitus; Z82.3 Family history of stroke; Z82.49 Family history of ischemic heart disease and other diseases of the circulatory system
CPT/HCPCS: 36415; 36416; 71045; 71275; 72020; 80053; 80061; 83036; 83690; 84484; 85025; 86706; 87340; 90935; 93005; 93010; 96374; 96375; 96376; G0257; G0378; J1644; J1815; J2270; J2272; J2405; Q0162; Q9967; U0003; U0005

== ENCOUNTER 2022-11-13 15:10 | Observation (INO) | payer MEDICARE ==
[2022-11-13] MEDS ORDERED: Ondansetron PF 4 MG/2 ML Vial ONE (17:19)
[2022-11-13] MEDS ORDERED: Morphine 4 MG/ML VIAL ONE (17:19)
[2022-11-13] MEDS ORDERED: Vancomycin 1 GM/200 ML (FROZEN) BAG ONE (17:20)
[2022-11-13 17:39] LABS: #Basophils 0.1 thou/uL (0.0-0.2); #Eosinphils 0.4 thou/uL (0.0-0.7); #Lymphocytes 1.8 thou/uL (1.20-3.40); #Monocytes 0.4 thou/uL (0.11-0.59); #Neutrophils 5.6 thou/uL (1.40-6.50); %Basophils 0.8 % (0.0-1.0); %Eosinophils 4.3 % (0.0-10.0); %Lymphocytes 21.9 % (21.0-51.0); %Monocytes 4.6 % (0.0-10.0); %Neutrophils 68.4 % (42.0-75.0); Mean Corpuscular HGB CONC 35.4 g/dL (32.0-36.0); Mean Corpuscular Hemoglobin 34.6 pg (27.0-31.0); Mean Corpuscular Volume 97.8 fl (78.0-98.0); Mean Platelet Volume 6.9 fL (7.4-10.4); Platelet Count 285 10x3/uL (130-400); RBC Distribution Width 12.8 % (11.5-14.5); Red Blood Cell (RBC) Count 3.47 mill/uL (4.20-5.40); White Blood Cell (WBC) Count 8.3 10x3/uL (4.8-10.8)
[2022-11-13 17:43] LABS: Prothrombin Time 13.2 sec (12.0-14.7)
[2022-11-13 17:44] LABS: PTT 28.2 sec (22.9-36.1)
[2022-11-13 17:56] LABS: ALT (SGPT) 16 U/L (8-55); AST (SGOT) 16 U/L (5-34); Albumin 4.1 g/dL (3.5-5.0); Alkaline Phosphatase 81 U/L (40-110); Anion Gap 21 mmol/L (10-20); BUN (Urea Nitrogen) 54 mg/dL (9.8-20.1); Bilirubin, Total 0.5 mg/dL (0.2-1.2); Calc. Creatinine Clearance 0 mL/min (70-130); Calcium 9.4 mg/dL (7.8-10.44); Carbon Dioxide 24 mmol/L (22-29); Chloride 101 mmol/L (98-107); Estimated GFR 5; Globulin 3.7 g/dL (2.4-3.5); Glucose 248 mg/dL (70-105); Potassium 4.7 mmol/L (3.5-5.1); Protein, Total 7.8 g/dL (6.0-8.3); Sodium 141 mmol/L (136-145)
[2022-11-13] MEDS ORDERED: Piperacillin/Tazobactam 4.5 GM in Sodium Chloride 0.9% 100 ML IVPB SCH (18:00)
[2022-11-13] MEDS ORDERED: Dextrose 50% Abboject 50 ML SYRINGE SLOW IVP PRN (20:39)
[2022-11-13] MEDS ORDERED: Dextrose 5% in Water 1,000 ML IV PRN (20:39)
[2022-11-13] MEDS ORDERED: HumaLOG 300 UNITS/3 ML VIAL SC PRN ×2 (20:40)
[2022-11-13 20:43] VITALS: BMI 44.7
[2022-11-13] MEDS ORDERED: Vancomycin Dialysis Sliding Scale (Wt > 99) FS SCH (21:30)
[2022-11-13] MEDS ORDERED: Vancomycin 1 GM in Premix Bag 1 BAG IVPB SCH (21:30)
[2022-11-13] MEDS ORDERED: Cefepime 1 GM in Sodium Chloride 0.9% 100 ML IVPB SCH (22:30)
[2022-11-13] MEDS: Heparin 5,000 UNITS/ML VIAL SC SCH (23:42)
[2022-11-13] MEDS ORDERED: hydrOXYzine 25 MG TAB PO PRN (23:45)
[2022-11-14] MEDS ORDERED: Carvedilol 6.25 MG TAB PO SCH ×2 (01:30→01:45)
[2022-11-14] MEDS ORDERED: Sacubitril 49 MG/Valsartan 51 MG TABLET PO SCH ×2 (01:30→01:45)
[2022-11-14] MEDS: HYDROcodone/Acetaminophen 10/325 mg Tablet PO PRN ×2 (02:12→18:12)
[2022-11-14] MEDS ORDERED: Metoclopramide HCl 10 MG TAB PO SCH (03:45)
[2022-11-14 07:34] LABS: #Eosinphils 0.3 thou/uL (0.0-0.7); #Lymphocytes 1.8 thou/uL (1.20-3.40); #Monocytes 0.4 thou/uL (0.11-0.59); #Neutrophils 4.4 thou/uL (1.40-6.50); %Basophils 0.6 % (0.0-1.0); %Eosinophils 4.3 % (0.0-10.0); %Lymphocytes 26.3 % (21.0-51.0); %Neutrophils 62.8 % (42.0-75.0); Hemoglobin 10.4 g/dL (12.0-16.0); Mean Corpuscular HGB CONC 32.5 g/dL (32.0-36.0); Mean Corpuscular Hemoglobin 32.3 pg (27.0-31.0); Mean Corpuscular Volume 99.4 fl (78.0-98.0); Platelet Count 255 10x3/uL (130-400); RBC Distribution Width 12.9 % (11.5-14.5); Red Blood Cell (RBC) Count 3.21 mill/uL (4.20-5.40); White Blood Cell (WBC) Count 6.9 10x3/uL (4.8-10.8)
[2022-11-14 07:44] LABS: Vancomycin, Random 10.2 ug/mL (See Comment)
[2022-11-14 07:47] LABS: Anion Gap 19 mmol/L (10-20); BUN (Urea Nitrogen) 57 mg/dL (9.8-20.1); Calc. Creatinine Clearance 16 mL/min (70-130); Carbon Dioxide 21 mmol/L (22-29); Chloride 102 mmol/L (98-107); Estimated GFR 5; Glucose 219 mg/dL (70-105); Potassium 4.5 mmol/L (3.5-5.1); Sodium 137 mmol/L (136-145)
[2022-11-14] MEDS: Insulin Glargine 30 UNITS/0.3 ML VIAL SC SCH ×2 (08:56→21:59)
[2022-11-14] MEDS: Heparin 5,000 UNITS/ML VIAL SC SCH ×3 (08:59→22:04)
[2022-11-14] MEDS: Carvedilol 25 MG TAB PO SCH ×2 (09:00→18:07)
[2022-11-14] MEDS ORDERED: levETIRAcetam 500 mg/5 ml Oral Solution PO SCH (09:00)
[2022-11-14] MEDS: Clopidogrel Bisulfate 75 MG TAB PO SCH (09:02)
[2022-11-14] MEDS: Gabapentin 300 MG CAP PO SCH (09:02)
[2022-11-14] MEDS: Metoclopramide HCl 10 MG TAB PO SCH ×3 (09:02→21:59)
[2022-11-14] MEDS: Cinacalcet HCl 30 MG TAB PO SCH ×3 (09:03→18:07)
[2022-11-14] MEDS: Aspirin 81 mg Enteric Coated Tablet PO SCH (09:03)
[2022-11-14] MEDS: Sevelamer Carbonate 800 MG TAB PO SCH ×3 (09:04→18:07)
[2022-11-14] MEDS: Sacubitril 49 MG/Valsartan 51 MG TABLET PO SCH ×2 (09:04→21:58)
[2022-11-14] MEDS ORDERED: Heparin 10,000 UNITS/ 10 ML VIAL ONE (10:31)
[2022-11-14] MEDS ORDERED: FLU VACC QS2022-23(6MOS UP)/PF 60 MCG/0.5 ML SYRINGE IM ONE (14:00)
[2022-11-14] MEDS ORDERED: VANCOMYCIN 1.25 GM/250 ML BAG 1.25 GM in Premix Bag 1 BAG IVPB SCH (17:00)
[2022-11-14] MEDS ORDERED: Cefepime 1 GM in Sodium Chloride 0.9% 100 ML IVPB SCH (17:00)
[2022-11-14] MEDS: Cephalexin 250 MG CAP PO SCH (21:58)
[2022-11-15] MEDS: HYDROcodone/Acetaminophen 10/325 mg Tablet PO PRN ×2 (00:54→10:13)
[2022-11-15 07:40] VITALS: BP 165/84; TEMP 98
[2022-11-15 07:40] LABS: Anion Gap 18 mmol/L (10-20); BUN (Urea Nitrogen) 29 mg/dL (9.8-20.1); Calc. Creatinine Clearance 26 mL/min (70-130); Calcium 8.7 mg/dL (7.8-10.44); Carbon Dioxide 21 mmol/L (22-29); Chloride 100 mmol/L (98-107); Estimated GFR 9; Glucose 177 mg/dL (70-105); Potassium 4.3 mmol/L (3.5-5.1); Sodium 135 mmol/L (136-145)
[2022-11-15 07:49] LABS: #Eosinphils 0.3 thou/uL (0.0-0.7); #Lymphocytes 1.7 thou/uL (1.20-3.40); #Monocytes 0.5 thou/uL (0.11-0.59); #Neutrophils 4.9 thou/uL (1.40-6.50); %Basophils 0.5 % (0.0-1.0); %Eosinophils 4.5 % (0.0-10.0); %Lymphocytes 22.8 % (21.0-51.0); %Neutrophils 66.2 % (42.0-75.0); Mean Corpuscular HGB CONC 31.1 g/dL (32.0-36.0); Mean Corpuscular Hemoglobin 30.7 pg (27.0-31.0); Mean Corpuscular Volume 98.8 fl (78.0-98.0); Mean Platelet Volume 7.2 fL (7.4-10.4); Platelet Count 256 10x3/uL (130-400); RBC Distribution Width 12.8 % (11.5-14.5); Red Blood Cell (RBC) Count 3.57 mill/uL (4.20-5.40); White Blood Cell (WBC) Count 7.5 10x3/uL (4.8-10.8)
[2022-11-15] MEDS ORDERED: levETIRAcetam 500 MG TAB PO SCH (09:00)
[2022-11-15] MEDS: Sevelamer Carbonate 800 MG TAB PO SCH (09:39)
[2022-11-15] MEDS: Cinacalcet HCl 30 MG TAB PO SCH (09:39)
[2022-11-15] MEDS: Aspirin 81 mg Enteric Coated Tablet PO SCH (09:39)
[2022-11-15] MEDS: Metoclopramide HCl 10 MG TAB PO SCH (09:40)
[2022-11-15] MEDS: Insulin Glargine 30 UNITS/0.3 ML VIAL SC SCH (09:41)
[2022-11-15] MEDS: Gabapentin 300 MG CAP PO SCH (09:41)
[2022-11-15] MEDS: Clopidogrel Bisulfate 75 MG TAB PO SCH (09:41)
[2022-11-15] MEDS: Heparin 5,000 UNITS/ML VIAL SC SCH (09:43)
[2022-11-15] MEDS: Carvedilol 25 MG TAB PO SCH (09:44)
[2022-11-15] MEDS: Sacubitril 49 MG/Valsartan 51 MG TABLET PO SCH (09:47)
[2022-11-15] MEDS: Cephalexin 250 MG CAP PO SCH (09:47)
== END 2022-11-15 11:43 | disposition home or self-care (01) ==
LOC: ERS 15:10 → T4-B 18:26
PROVIDERS: ADMIT Student in an Organized Health Care Education/Training Program; ATTEND Student in an Organized Health Care Education/Training Program
DX: E11.621 Type 2 diabetes mellitus with foot ulcer (principal); L97.419 Non-pressure chronic ulcer of right heel and midfoot with unspecified severity; E11.52 Type 2 diabetes mellitus with diabetic peripheral angiopathy with gangrene; I96 Gangrene, not elsewhere classified; R94.31 Abnormal electrocardiogram [ECG] [EKG]; I13.2 Hypertensive heart and chronic kidney disease with heart failure and with stage 5 chronic kidney disease, or end stage renal disease; E11.22 Type 2 diabetes mellitus with diabetic chronic kidney disease; N18.6 End stage renal disease; I50.42 Chronic combined systolic (congestive) and diastolic (congestive) heart failure; D63.1 Anemia in chronic kidney disease; N25.81 Secondary hyperparathyroidism of renal origin; M19.071 Primary osteoarthritis, right ankle and foot; E11.40 Type 2 diabetes mellitus with diabetic neuropathy, unspecified; I25.10 Atherosclerotic heart disease of native coronary artery without angina pectoris; E78.5 Hyperlipidemia, unspecified; G40.909 Epilepsy, unspecified, not intractable, without status epilepticus; M79.7 Fibromyalgia; I25.2 Old myocardial infarction; E87.70 Fluid overload, unspecified; E66.01 Morbid (severe) obesity due to excess calories; Z68.41 Body mass index [BMI] 40.0-44.9, adult; Z79.02 Long term (current) use of antithrombotics/antiplatelets; Z79.4 Long term (current) use of insulin; Z79.82 Long term (current) use of aspirin; Z79.899 Other long term (current) drug therapy; Z88.5 Allergy status to narcotic agent; Z95.5 Presence of coronary angioplasty implant and graft; Z89.512 Acquired absence of left leg below knee; Z99.2 Dependence on renal dialysis; Z20.822 Contact with and (suspected) exposure to COVID-19
CPT/HCPCS: 73630; 80048 ×2; 80053; 80202; 82962 ×3; 83605; 85025 ×3; 85610; 85652; 85730; 86140; 93005; 96365; 96366; 96375; 97139; 97535; 97542; 99284; J3370 ×2; U0003; U0005; 36415; 36416; 90935; G0257; G0378; J0692; J1644; J1815; J2270; J2405; J2543; J3490

== ENCOUNTER 2022-11-28 13:32 | Inpatient (IN) | payer MEDICARE ==
[~2022-11-28 13:32] MED LIST changes: -Heparin 10,000 UNITS/ 10 ML VIAL ONE
[2022-11-28] MEDS ORDERED: Morphine 4 MG/ML VIAL ONE (14:15)
[2022-11-28] MEDS ORDERED: Ondansetron PF 4 MG/2 ML Vial ONE (14:15)
[2022-11-28] MEDS ORDERED: Sodium Chloride 0.9% 100 ML ONE (14:16)
[2022-11-28] MEDS ORDERED: cefTRIAXone\\ROCEPHIN 2 GM VIAL ONE (14:16)
[2022-11-28 14:42] LABS: #Eosinphils 0.5 thou/uL (0.0-0.7); #Lymphocytes 1.6 thou/uL (1.20-3.40); #Monocytes 0.5 thou/uL (0.11-0.59); #Neutrophils 6.6 thou/uL (1.40-6.50); %Basophils 0.5 % (0.0-1.0); %Eosinophils 5.2 % (0.0-10.0); %Lymphocytes 16.9 % (21.0-51.0); %Monocytes 5.8 % (0.0-10.0); %Neutrophils 71.6 % (42.0-75.0); Hemoglobin 11.1 g/dL (12.0-16.0); Mean Corpuscular HGB CONC 32.7 g/dL (32.0-36.0); Mean Corpuscular Hemoglobin 32.7 pg (27.0-31.0); Mean Platelet Volume 6.9 fL (7.4-10.4); Platelet Count 290 10x3/uL (130-400); RBC Distribution Width 12.7 % (11.5-14.5); Red Blood Cell (RBC) Count 3.41 mill/uL (4.20-5.40); White Blood Cell (WBC) Count 9.2 10x3/uL (4.8-10.8)
[2022-11-28 15:00] LABS: ALT (SGPT) 17 U/L (8-55); AST (SGOT) 14 U/L (5-34); Albumin 4.1 g/dL (3.5-5.0); Alkaline Phosphatase 80 U/L (40-110); Anion Gap 20 mmol/L (10-20); BUN (Urea Nitrogen) 54 mg/dL (9.8-20.1); Bilirubin, Total 0.4 mg/dL (0.2-1.2); Calc. Creatinine Clearance 0 mL/min (70-130); Calcium 8.6 mg/dL (7.8-10.44); Carbon Dioxide 29 mmol/L (22-29); Chloride 93 mmol/L (98-107); Estimated GFR 5; Globulin 3.7 g/dL (2.4-3.5); Glucose 273 mg/dL (70-105); Potassium 4.5 mmol/L (3.5-5.1); Protein, Total 7.8 g/dL (6.0-8.3); Sodium 137 mmol/L (136-145)
[2022-11-28] MEDS ORDERED: Vancomycin 1 GM/200 ML (FROZEN) BAG ONE (16:00)
[2022-11-28] MEDS ORDERED: Dextrose 5% in Water 1,000 ML IV PRN (16:05)
[2022-11-28] MEDS ORDERED: Dextrose 50% Abboject 50 ML SYRINGE SLOW IVP PRN (16:05)
[2022-11-28] MEDS ORDERED: HumaLOG 300 UNITS/3 ML VIAL SC PRN ×2 (16:11)
[2022-11-28] MEDS ORDERED: HYDROcodone/Acetaminophen 10/325 mg Tablet PO PRN (16:51)
[2022-11-28] MEDS ORDERED: HYDROcodone/Acetaminophen 5/325 mg Tablet PO PRN (16:51)
[2022-11-28] MEDS: Sevelamer Carbonate 800 MG TAB PO SCH (18:22)
[2022-11-28] MEDS: Sacubitril 49 MG/Valsartan 51 MG TABLET PO SCH (20:47)
[2022-11-28] MEDS: Carvedilol 6.25 MG TAB PO SCH (20:48)
[2022-11-28] MEDS: Insulin Glargine 30 UNITS/0.3 ML VIAL SC SCH (20:49)
[2022-11-28] MEDS: Heparin 5,000 UNITS/ML VIAL SC SCH (20:49)
[2022-11-28 23:40] VITALS: BMI 42.5
[2022-11-28] MEDS ORDERED: Morphine 2 MG/ML VIAL SLOW IVP SCH (23:45)
[2022-11-29] MEDS: hydrOXYzine 25 MG TAB PO PRN (00:11)
[2022-11-29] MEDS: Metoclopramide HCl 10 MG TAB PO SCH ×4 (07:23→18:48)
[2022-11-29] MEDS ORDERED: Acetaminophen 325 MG TAB PO PRN (08:07)
[2022-11-29] MEDS ORDERED: Fentanyl 100 MCG/2 ML VIAL SLOW IVP PRN (08:07)
[2022-11-29 08:25] LABS: #Eosinphils 0.4 thou/uL (0.0-0.7); #Lymphocytes 1.4 thou/uL (1.20-3.40); #Monocytes 0.5 thou/uL (0.11-0.59); #Neutrophils 4.2 thou/uL (1.40-6.50); %Basophils 0.4 % (0.0-1.0); %Eosinophils 5.6 % (0.0-10.0); %Lymphocytes 21.7 % (21.0-51.0); %Monocytes 7.3 % (0.0-10.0); Hemoglobin 10.1 g/dL (12.0-16.0); Mean Corpuscular HGB CONC 32.4 g/dL (32.0-36.0); Mean Corpuscular Hemoglobin 32.6 pg (27.0-31.0); Platelet Count 244 10x3/uL (130-400); RBC Distribution Width 12.9 % (11.5-14.5); Red Blood Cell (RBC) Count 3.11 mill/uL (4.20-5.40); White Blood Cell (WBC) Count 6.5 10x3/uL (4.8-10.8)
[2022-11-29 08:38] LABS: Anion Gap 16 mmol/L (10-20); BUN (Urea Nitrogen) 58 mg/dL (9.8-20.1); Calc. Creatinine Clearance 16 mL/min (70-130); Carbon Dioxide 30 mmol/L (22-29); Chloride 97 mmol/L (98-107); Estimated GFR 5; Glucose 119 mg/dL (70-105); Potassium 4.5 mmol/L (3.5-5.1); Sodium 138 mmol/L (136-145)
[2022-11-29] MEDS: FENTANYL 50 MCG/ML 1 ML VIAL SLOW IVP PRN ×3 (08:38→21:14)
[2022-11-29] MEDS ORDERED: Gabapentin 300 MG CAP PO SCH (09:00)
[2022-11-29] MEDS ORDERED: Heparin 10,000 UNITS/ 10 ML VIAL ONE (09:06)
[2022-11-29] MEDS: Carvedilol 6.25 MG TAB PO SCH ×2 (15:01→21:12)
[2022-11-29] MEDS: Sevelamer Carbonate 800 MG TAB PO SCH ×3 (15:01→21:04)
[2022-11-29] MEDS: Heparin 5,000 UNITS/ML VIAL SC SCH ×3 (15:02→21:12)
[2022-11-29] MEDS: Sacubitril 49 MG/Valsartan 51 MG TABLET PO SCH ×2 (15:02→21:12)
[2022-11-29] MEDS: Insulin Glargine 30 UNITS/0.3 ML VIAL SC SCH ×2 (15:02→21:13)
[2022-11-29] MEDS: Acetaminophen 325 MG TAB PO SCH ×3 (15:03→21:13)
[2022-11-29] MEDS: Aspirin 81 mg Enteric Coated Tablet PO SCH (15:18)
[2022-11-29] MEDS: levETIRAcetam 500 MG TAB PO SCH (15:18)
[2022-11-29] MEDS: Cinacalcet HCl 30 MG TAB PO SCH (15:20)
[2022-11-29] MEDS: Clopidogrel Bisulfate 75 MG TAB PO SCH (15:20)
[2022-11-30] MEDS ORDERED: Calcium Carbonate 500 MG ChewTAB PO PRN (02:01)
[2022-11-30] MEDS: Acetaminophen 325 MG TAB PO SCH ×4 (03:07→20:51)
[2022-11-30] MEDS: FENTANYL 50 MCG/ML 1 ML VIAL SLOW IVP PRN ×4 (03:08→20:54)
[2022-11-30] MEDS: Metoclopramide HCl 10 MG TAB PO SCH ×3 (06:31→17:00)
[2022-11-30 06:47] LABS: #Eosinphils 0.5 thou/uL (0.0-0.7); #Lymphocytes 1.8 thou/uL (1.20-3.40); #Monocytes 0.5 thou/uL (0.11-0.59); #Neutrophils 5.2 thou/uL (1.40-6.50); %Basophils 0.5 % (0.0-1.0); %Eosinophils 6.4 % (0.0-10.0); %Lymphocytes 21.9 % (21.0-51.0); %Monocytes 6.5 % (0.0-10.0); %Neutrophils 64.7 % (42.0-75.0); Hemoglobin 11.5 g/dL (12.0-16.0); Mean Corpuscular HGB CONC 33.7 g/dL (32.0-36.0); Mean Corpuscular Hemoglobin 33.3 pg (27.0-31.0); Mean Corpuscular Volume 98.7 fl (78.0-98.0); Mean Platelet Volume 6.7 fL (7.4-10.4); Platelet Count 253 10x3/uL (130-400); RBC Distribution Width 13.1 % (11.5-14.5); Red Blood Cell (RBC) Count 3.45 mill/uL (4.20-5.40)
[2022-11-30 07:10] LABS: Anion Gap 15 mmol/L (10-20); BUN (Urea Nitrogen) 30 mg/dL (9.8-20.1); Calc. Creatinine Clearance 22 mL/min (70-130); Calcium 8.2 mg/dL (7.8-10.44); Carbon Dioxide 27 mmol/L (22-29); Chloride 97 mmol/L (98-107); Estimated GFR 8; Glucose 106 mg/dL (70-105); Potassium 4.3 mmol/L (3.5-5.1); Sodium 135 mmol/L (136-145)
[2022-11-30] MEDS ORDERED: Ergocalciferol 1.25 MG(50,000 UNITS) CAP PO SCH (08:00)
[2022-11-30] MEDS ORDERED: NIFEdipine XL 30 MG TAB PO SCH (09:00)
[2022-11-30] MEDS ORDERED: Heparin 10,000 UNITS/ 10 ML VIAL ONE (09:05)
[2022-11-30] MEDS: Aspirin 81 mg Enteric Coated Tablet PO SCH (09:09)
[2022-11-30] MEDS: Carvedilol 6.25 MG TAB PO SCH ×2 (09:10→20:50)
[2022-11-30] MEDS: levETIRAcetam 500 MG TAB PO SCH (09:10)
[2022-11-30] MEDS: Cinacalcet HCl 30 MG TAB PO SCH (09:11)
[2022-11-30] MEDS: Sevelamer Carbonate 800 MG TAB PO SCH ×3 (09:12→17:00)
[2022-11-30] MEDS: Insulin Glargine 30 UNITS/0.3 ML VIAL SC SCH ×3 (09:12→20:51)
[2022-11-30] MEDS: Clopidogrel Bisulfate 75 MG TAB PO SCH (09:12)
[2022-11-30] MEDS: Sacubitril 49 MG/Valsartan 51 MG TABLET PO SCH ×2 (09:18→20:50)
[2022-11-30] MEDS ORDERED: Promethazine HCl 12.5 MG SUPP PR PRN (11:22)
[2022-11-30] MEDS: Heparin 5,000 UNITS/ML VIAL SC SCH (15:13)
[2022-11-30] MEDS ORDERED: Gabapentin 100 MG CAP PO SCH (21:00)
[2022-11-30] MEDS: hydrOXYzine 25 MG TAB PO PRN (23:52)
[2022-12-01] MEDS: Acetaminophen 325 MG TAB PO SCH ×4 (04:29→20:40)
[2022-12-01 05:06] LABS: #Eosinphils 0.5 thou/uL (0.0-0.7); #Monocytes 0.6 thou/uL (0.11-0.59); #Neutrophils 7.4 thou/uL (1.40-6.50); %Basophils 0.3 % (0.0-1.0); %Eosinophils 4.5 % (0.0-10.0); %Monocytes 5.9 % (0.0-10.0); %Neutrophils 70.3 % (42.0-75.0); Hemoglobin 12.4 g/dL (12.0-16.0); Mean Corpuscular HGB CONC 34.1 g/dL (32.0-36.0); Mean Corpuscular Hemoglobin 33.2 pg (27.0-31.0); Mean Corpuscular Volume 97.5 fl (78.0-98.0); Mean Platelet Volume 6.7 fL (7.4-10.4); Platelet Count 261 10x3/uL (130-400); Red Blood Cell (RBC) Count 3.73 mill/uL (4.20-5.40); White Blood Cell (WBC) Count 10.6 10x3/uL (4.8-10.8)
[2022-12-01] MEDS: FENTANYL 50 MCG/ML 1 ML VIAL SLOW IVP PRN ×3 (05:16→23:16)
[2022-12-01 05:30] LABS: Anion Gap 18 mmol/L (10-20); BUN (Urea Nitrogen) 27 mg/dL (9.8-20.1); Calc. Creatinine Clearance 23 mL/min (70-130); Calcium 8.4 mg/dL (7.8-10.44); Carbon Dioxide 24 mmol/L (22-29); Chloride 97 mmol/L (98-107); Estimated GFR 8; Glucose 70 mg/dL (70-105); Potassium 3.8 mmol/L (3.5-5.1); Sodium 135 mmol/L (136-145)
[2022-12-01] MEDS: Metoclopramide HCl 10 MG TAB PO SCH ×3 (06:13→16:48)
[2022-12-01] MEDS ORDERED: Lidocaine 1% (PF) 30 ML VIAL ONE (06:22)
[2022-12-01] MEDS ORDERED: Midazolam HCl 2 mg/2 ml Vial ONE (07:06)
[2022-12-01] MEDS ORDERED: FENTANYL 50 MCG/ML 1 ML VIAL ONE ×2 (07:06→08:18)
[2022-12-01] MEDS ORDERED: hydrALAZINE 20 MG/ML VIAL SLOW IVP PRN (08:56)
[2022-12-01] MEDS: Sacubitril 49 MG/Valsartan 51 MG TABLET PO SCH ×2 (10:00→20:40)
[2022-12-01] MEDS: Insulin Glargine 30 UNITS/0.3 ML VIAL SC SCH ×2 (10:00→20:35)
[2022-12-01] MEDS: hydrOXYzine 25 MG TAB PO PRN ×2 (10:06→20:40)
[2022-12-01] MEDS: Aspirin 81 mg Enteric Coated Tablet PO SCH (10:06)
[2022-12-01] MEDS: levETIRAcetam 500 MG TAB PO SCH (10:07)
[2022-12-01] MEDS: Carvedilol 6.25 MG TAB PO SCH ×2 (10:07→20:39)
[2022-12-01] MEDS: Cinacalcet HCl 30 MG TAB PO SCH (10:07)
[2022-12-01] MEDS: Sevelamer Carbonate 800 MG TAB PO SCH ×3 (10:08→17:01)
[2022-12-01] MEDS: Clopidogrel Bisulfate 75 MG TAB PO SCH (10:08)
[2022-12-01] MEDS ORDERED: Rosuvastatin 10 MG TAB PO SCH (21:00)
[2022-12-02] MEDS: FENTANYL 50 MCG/ML 1 ML VIAL SLOW IVP PRN (05:46)
[2022-12-02] MEDS: Metoclopramide HCl 10 MG TAB PO SCH ×2 (05:46→14:22)
[2022-12-02] MEDS: Acetaminophen 325 MG TAB PO SCH (05:46)
[2022-12-02] MEDS ORDERED: HYDROcodone/Acetaminophen 10/325 mg Tablet PO PRN (05:49)
[2022-12-02] MEDS ORDERED: HYDROcodone/Acetaminophen 5/325 mg Tablet PO PRN (05:49)
[2022-12-02 06:32] LABS: #Basophils 0.1 thou/uL (0.0-0.2); #Eosinphils 0.4 thou/uL (0.0-0.7); #Lymphocytes 2.1 thou/uL (1.20-3.40); #Monocytes 0.7 thou/uL (0.11-0.59); #Neutrophils 5.2 thou/uL (1.40-6.50); %Basophils 0.8 % (0.0-1.0); %Eosinophils 5.1 % (0.0-10.0); %Lymphocytes 24.9 % (21.0-51.0); %Monocytes 7.9 % (0.0-10.0); %Neutrophils 61.3 % (42.0-75.0); Hemoglobin 11.9 g/dL (12.0-16.0); Mean Corpuscular Hemoglobin 33.5 pg (27.0-31.0); Mean Corpuscular Volume 98.3 fl (78.0-98.0); Mean Platelet Volume 6.9 fL (7.4-10.4); Platelet Count 236 10x3/uL (130-400); RBC Distribution Width 13.1 % (11.5-14.5); Red Blood Cell (RBC) Count 3.55 mill/uL (4.20-5.40); White Blood Cell (WBC) Count 8.5 10x3/uL (4.8-10.8)
[2022-12-02 06:35] LABS: Anion Gap 19 mmol/L (10-20); BUN (Urea Nitrogen) 36 mg/dL (9.8-20.1); Calc. Creatinine Clearance 19 mL/min (70-130); Calcium 7.9 mg/dL (7.8-10.44); Carbon Dioxide 23 mmol/L (22-29); Chloride 95 mmol/L (98-107); Estimated GFR 6; Glucose 72 mg/dL (70-105); Sodium 133 mmol/L (136-145)
[2022-12-02] MEDS: Sevelamer Carbonate 800 MG TAB PO SCH (14:20)
[2022-12-02] MEDS: Carvedilol 6.25 MG TAB PO SCH (14:21)
[2022-12-02] MEDS: Heparin 5,000 UNITS/ML VIAL SC SCH (14:21)
[2022-12-02] MEDS: Insulin Glargine 30 UNITS/0.3 ML VIAL SC SCH (14:22)
[2022-12-02 15:31] VITALS: BP 105/72; TEMP 98.3
[2022-12-02] MEDS: Clopidogrel Bisulfate 75 MG TAB PO SCH (15:41)
[2022-12-02] MEDS: levETIRAcetam 500 MG TAB PO SCH ×2 (15:41→15:42)
[2022-12-02] MEDS: Cinacalcet HCl 30 MG TAB PO SCH (15:41)
[2022-12-02] MEDS: Aspirin 81 mg Enteric Coated Tablet PO SCH (15:41)
[2022-12-02] MEDS ORDERED: Heparin 10,000 UNITS/ 10 ML VIAL ONE (16:00)
== END 2022-12-02 16:35 | disposition home health service (06) | DRG 638 ==
LOC: ERS 13:32 → SJJU 17:08 → OBSVTOIN 11-29 16:33
PROVIDERS: ADMIT Student in an Organized Health Care Education/Training Program; ATTEND Student in an Organized Health Care Education/Training Program
PROC: B41D1ZZ Fluoroscopy of Aorta and Bilateral Lower Extremity Arteries using Low Osmolar Contrast (ICD-10-PCS; principal; 2022-12-01)
PROC: 5A1D70Z Performance of Urinary Filtration, Intermittent, Less than 6 Hours Per Day (ICD-10-PCS; 2022-12-02)
DX: E11.621 Type 2 diabetes mellitus with foot ulcer (principal); I13.2 Hypertensive heart and chronic kidney disease with heart failure and with stage 5 chronic kidney disease, or end stage renal disease; L97.419 Non-pressure chronic ulcer of right heel and midfoot with unspecified severity; I50.42 Chronic combined systolic (congestive) and diastolic (congestive) heart failure; Z68.41 Body mass index [BMI] 40.0-44.9, adult; E11.22 Type 2 diabetes mellitus with diabetic chronic kidney disease; N18.6 End stage renal disease; I45.81 Long QT syndrome; E11.42 Type 2 diabetes mellitus with diabetic polyneuropathy; I25.10 Atherosclerotic heart disease of native coronary artery without angina pectoris; E66.01 Morbid (severe) obesity due to excess calories; E11.51 Type 2 diabetes mellitus with diabetic peripheral angiopathy without gangrene; E11.21 Type 2 diabetes mellitus with diabetic nephropathy; D63.1 Anemia in chronic kidney disease; N25.81 Secondary hyperparathyroidism of renal origin; Z96.652 Presence of left artificial knee joint; R53.81 Other malaise; G40.909 Epilepsy, unspecified, not intractable, without status epilepticus; E78.00 Pure hypercholesterolemia, unspecified; M79.7 Fibromyalgia; Z88.6 Allergy status to analgesic agent; Z99.2 Dependence on renal dialysis; Z89.512 Acquired absence of left leg below knee; Z95.5 Presence of coronary angioplasty implant and graft; Z88.8 Allergy status to other drugs, medicaments and biological substances; Z79.02 Long term (current) use of antithrombotics/antiplatelets; Z79.82 Long term (current) use of aspirin; Z79.899 Other long term (current) drug therapy; Z79.4 Long term (current) use of insulin; Z90.710 Acquired absence of both cervix and uterus; Z90.49 Acquired absence of other specified parts of digestive tract; Z87.891 Personal history of nicotine dependence; Z83.3 Family history of diabetes mellitus; Z82.3 Family history of stroke; Z82.49 Family history of ischemic heart disease and other diseases of the circulatory system; I25.2 Old myocardial infarction
CPT/HCPCS: 36247; 36415; 36416; 75635; 75710; 80048; 80053; 83605; 85025; 85652; 86140; 87040; 90935; 96372; 97139; 99152; G0257; G0378; J0696; J1644; J1815; J2001; J2250; J2270; J2272; J2405; J3010; J3370-JW; J3490; Q9967

== ENCOUNTER 2023-02-26 11:19 | Inpatient (IN) | payer MEDICARE ==
[~2023-02-26 11:19] MED LIST changes: -Iopamidol-370 76% 500 ML 1 ML ONE; +Iopamidol-370 76% 500 ML MDV (1 ML CHARGE) ONE
[2023-02-26 12:04] LABS: #Basophils 0.1 thou/uL (0.0-0.2); #Monocytes 1.1 thou/uL (0.11-0.59); #Neutrophils 22.3 thou/uL (1.40-6.50); %Basophils 0.3 % (0.0-1.0); %Monocytes 4.5 % (0.0-10.0); %Neutrophils 91.4 % (42.0-75.0); Hemoglobin 10.7 g/dL (12.0-16.0); Mean Corpuscular HGB CONC 31.1 g/dL (32.0-36.0); Mean Corpuscular Volume 99.7 fl (78.0-98.0); Mean Platelet Volume 9.5 fL (7.4-10.4); Platelet Count 215 10x3/uL (130-400); RBC Distribution Width 13.8 % (11.5-14.5); Red Blood Cell (RBC) Count 3.45 mill/uL (4.20-5.40); White Blood Cell (WBC) Count 24.4 10x3/uL (4.8-10.8)
[2023-02-26 12:05] LABS: Actual Bicarbonate (HCO3v) 25.5 mEq/L (22-28); Base Excess 0.8 mEq/L (-2.0 to +3.0); Calcium, Ionized (venous) 1.04 mmol/L (1.16-1.32); Chloride (VBG) 95 mmol/L (98-106); Hematocrit-VBG 34 % (36.0-47.0); Hemoglobin (Hb) 11.6 g/dL (11.7-16.0); Potassium (VBG) 4.98 mmol/L (3.70-5.30); Sodium 136.7 mmol/L (133-146); pH (venous) 7.411 (7.32-7.43)
[2023-02-26] MEDS ORDERED: levETIRAcetam 500 MG/5 ML VIAL ONE (12:06)
[2023-02-26] MEDS ORDERED: Cefepime 2 GM VIAL ONE (12:06)
[2023-02-26 12:18] LABS: INR-International Normal Ratio 1.2; PTT 37.7 sec (22.9-36.1); Prothrombin Time 15.4 sec (12.0-14.7)
[2023-02-26 12:27] LABS: Bilirubin Negative (Negative); Blood, Urine 2+ (Negative); CAUTI Indications for Culture Alt mental st,lethar; Clarity Turbid (Clear); Glucose, Urine (Dipstick) Normal (Negative); Ketone, Urine Negative (Negative); Leukocyte 500 Leu/uL (Negative); Nitrite Negative (Negative); Protein, Urine (Dipstick) 600 mg/dL (Neg-Trace); Specific Gravity, Urine 1.019 (1.002-1.036); Urobilinogen Normal mg/dL (Less than 2)
[2023-02-26 12:32] LABS: Bacteria/HPF 2+ HPF (None Seen)
[2023-02-26 12:33] LABS: ALT (SGPT) 45 U/L (8-55); AST (SGOT) 86 U/L (5-34); Albumin 3.6 g/dL (3.5-5.0); Alkaline Phosphatase 139 U/L (40-110); Anion Gap 23 mmol/L (10-20); BUN (Urea Nitrogen) 61 mg/dL (9.8-20.1); Bilirubin, Total 0.5 mg/dL (0.2-1.2); Calc. Creatinine Clearance 0 mL/min (70-130); Calcium 9.4 mg/dL (7.8-10.44); Carbon Dioxide 22 mmol/L (22-29); Chloride 97 mmol/L (98-107); Estimated GFR 5; Globulin 3.4 g/dL (2.4-3.5); Glucose 107 mg/dL (70-105); Magnesium 2.2 mg/dL (1.6-2.6); Potassium 5.2 mmol/L (3.5-5.1); Sodium 137 mmol/L (136-145)
[2023-02-26 12:34] LABS: Urine Culture Reflex Yes Yes
[2023-02-26 12:59] LABS: CKMB 10.9 ng/mL (0-6.6)
[2023-02-26] MEDS ORDERED: VANCOMYCIN 2 GRAM/500 ML BAG 2 GM in Premix Bag 1 BAG IVPB SCH (13:15)
[2023-02-26] MEDS ORDERED: Dextrose 50% Abboject 50 ML SYRINGE SLOW IVP PRN (14:21)
[2023-02-26] MEDS ORDERED: Dextrose 5% in Water 1,000 ML IV PRN (14:21)
[2023-02-26] MEDS ORDERED: Glucagon 1 MG/ML KIT IM PRN (14:21)
[2023-02-26] MEDS ORDERED: HumaLOG 300 UNITS/3 ML VIAL SC PRN ×2 (14:21)
[2023-02-26] MEDS ORDERED: Heparin 5,000 UNITS/ML VIAL SC SCH (15:00)
[2023-02-26 15:33] LABS: Troponin I 38.316 ng/mL (< 0.028)
[2023-02-26 16:49] LABS: Hemoglobin 10.9 g/dL (12.0-16.0); Platelet Count 182 10x3/uL (130-400)
[2023-02-26 16:50] LABS: Hemoglobin A1c 5.5 % (4.0-6.0)
[2023-02-26] MEDS: Heparin 25,000 units/D5W 500 ML IVPB SCH (17:08)
[2023-02-26] MEDS: Heparin 10,000 UNITS/ 10 ML VIAL SLOW IVP SCH (17:08)
[2023-02-26 17:13] LABS: Cardiac Risk 2.1 (Less than 4.5)
[2023-02-26 17:42] LABS: Troponin I 33.926 ng/mL (< 0.028)
[2023-02-26] MEDS ORDERED: Vancomycin Dialysis Sliding Scale (Wt > 99) FS SCH (18:00)
[2023-02-26] MEDS ORDERED: Vancomycin HCl 750 MG in Sodium Chloride 0.9% 250 ML 250 ML IVPB SCH (18:15)
[2023-02-26 18:40] LABS: Phosphorus 8.9 mg/dL (2.3-4.7)
[2023-02-26] MEDS ORDERED: Vancomycin 1 GM in Premix Bag 1 BAG IVPB SCH (21:00)
[2023-02-27] MEDS: Heparin 10,000 UNITS/ 10 ML VIAL SLOW IVP SCH ×2 (00:13→22:17)
[2023-02-27 05:34] LABS: Amphetamine Not Detected (NotDetected); Barbiturates Screen Not Detected (NotDetected); Benzodiazepine Screen Not Detected (NotDetected); Cocaine Metabolite Screen Not Detected (NotDetected); Methadone Not Detected (NotDetected); Methamphetamine Not Detected (NotDetected); Opiate Screen Detected (NotDetected); Oxycodone Screen Not Detected (NotDetected); Phencyclidine (PCP) Not Detected (NotDetected); THC/Cannabinoid Screen Not Detected (NotDetected); Tricyclic Screen Not Detected (NotDetected)
[2023-02-27 07:15] LABS: #Basophils 0.1 thou/uL (0.0-0.2); #Monocytes 1.3 thou/uL (0.11-0.59); #Neutrophils 18.8 thou/uL (1.40-6.50); %Basophils 0.4 % (0.0-1.0); %Lymphocytes 4.8 % (21.0-51.0); %Monocytes 6.2 % (0.0-10.0); Hemoglobin 9.6 g/dL (12.0-16.0); Mean Corpuscular HGB CONC 31.3 g/dL (32.0-36.0); Mean Corpuscular Hemoglobin 31.6 pg (27.0-31.0); Mean Platelet Volume 9.7 fL (7.4-10.4); Platelet Count 188 10x3/uL (130-400); RBC Distribution Width 13.9 % (11.5-14.5); Red Blood Cell (RBC) Count 3.04 mill/uL (4.20-5.40); White Blood Cell (WBC) Count 21.3 10x3/uL (4.8-10.8)
[2023-02-27 07:40] LABS: Vancomycin, Random 27.7 ug/mL (See Comment)
[2023-02-27 07:44] LABS: ALT (SGPT) 40 U/L (8-55); AST (SGOT) 63 U/L (5-34); Albumin 3.3 g/dL (3.5-5.0); Alkaline Phosphatase 118 U/L (40-110); Anion Gap 21 mmol/L (10-20); BUN (Urea Nitrogen) 77 mg/dL (9.8-20.1); Bilirubin, Total 0.4 mg/dL (0.2-1.2); Calc. Creatinine Clearance 15 mL/min (70-130); Calcium 9.3 mg/dL (7.8-10.44); Carbon Dioxide 23 mmol/L (22-29); Chloride 96 mmol/L (98-107); Estimated GFR 5; Globulin 3.7 g/dL (2.4-3.5); Glucose 166 mg/dL (70-105); Potassium 5.6 mmol/L (3.5-5.1); Sodium 134 mmol/L (136-145)
[2023-02-27] MEDS ORDERED: Aspirin 81 mg Enteric Coated Tablet PO SCH (09:45)
[2023-02-27] MEDS ORDERED: Heparin 10,000 UNITS/ 10 ML VIAL ONE (10:05)
[2023-02-27] MEDS: Heparin 25,000 units/D5W 500 ML IVPB SCH (14:29)
[2023-02-27] MEDS: Sevelamer Carbonate 800 MG TAB PO SCH ×2 (15:39→18:36)
[2023-02-27] MEDS ORDERED: levETIRAcetam 500 MG TAB PO SCH ×2 (15:45→15:47)
[2023-02-27] MEDS ORDERED: Cefepime 0.5 GM in Admixture Fee 1 EACH IVPB SCH (18:00)
[2023-02-27] MEDS: Lactated Ringer's 1,000 ML IV SCH (18:31)
[2023-02-27] MEDS ORDERED: HYDROcodone/Acetaminophen 10/325 mg Tablet PO PRN (18:44)
[2023-02-27] MEDS ORDERED: HYDROcodone/Acetaminophen 5/325 mg Tablet PO PRN (18:45)
[2023-02-27] MEDS ORDERED: Cefepime 0.5 GM, Admixture Fee 1 EACH in Sodium Chloride 0.9% 100 ML IVPB SCH (18:45)
[2023-02-27] MEDS: Sacubitril 49 MG/Valsartan 51 MG TABLET PO SCH (20:27)
[2023-02-27] MEDS: Carvedilol 6.25 MG TAB PO SCH (20:27)
[2023-02-27] MEDS: Rosuvastatin 10 MG TAB PO SCH (20:28)
[2023-02-27] MEDS ORDERED: HYDROcodone/Acetaminophen 5/325 mg Tablet PO SCH (20:30)
[2023-02-27] MEDS: Scopolamine 1.5 mg/72 hour Patch TD SCH (21:30)
[2023-02-28] MEDS: Nitroglycerin 0.4 MG TAB (25 Tab Bottle) SL PRN ×3 (02:05→02:25)
[2023-02-28 02:20] LABS: #Basophils 0.1 thou/uL (0.0-0.2); #Eosinphils 0.2 thou/uL (0.0-0.7); #Monocytes 1.3 thou/uL (0.11-0.59); #Neutrophils 15.5 thou/uL (1.40-6.50); %Basophils 0.4 % (0.0-1.0); %Eosinophils 0.9 % (0.0-10.0); %Lymphocytes 7.1 % (21.0-51.0); %Monocytes 7.2 % (0.0-10.0); %Neutrophils 83.8 % (42.0-75.0); Mean Corpuscular HGB CONC 31.9 g/dL (32.0-36.0); Mean Corpuscular Hemoglobin 31.5 pg (27.0-31.0); Mean Corpuscular Volume 98.7 fl (78.0-98.0); Mean Platelet Volume 9.7 fL (7.4-10.4); Platelet Count 164 10x3/uL (130-400); RBC Distribution Width 13.5 % (11.5-14.5); Red Blood Cell (RBC) Count 3.17 mill/uL (4.20-5.40); White Blood Cell (WBC) Count 18.5 10x3/uL (4.8-10.8)
[2023-02-28] MEDS ORDERED: Morphine 4 MG/ML VIAL ONE (02:31)
[2023-02-28] MEDS ORDERED: Morphine 2 MG/ML VIAL SLOW IVP SCH ×2 (02:45→03:15)
[2023-02-28] MEDS ORDERED: Nitroglycerin 50 MG/250 ML BOT 250 ML ONE ×2 (02:48→14:00)
[2023-02-28 03:01] LABS: Troponin I 11.812 ng/mL (< 0.028)
[2023-02-28 03:19] LABS: ALT (SGPT) 41 U/L (8-55); AST (SGOT) 56 U/L (5-34); Alkaline Phosphatase 125 U/L (40-110); Anion Gap 17 mmol/L (10-20); BUN (Urea Nitrogen) 34 mg/dL (9.8-20.1); Bilirubin, Total 0.3 mg/dL (0.2-1.2); Calc. Creatinine Clearance 27 mL/min (70-130); Calcium 8.8 mg/dL (7.8-10.44); Carbon Dioxide 25 mmol/L (22-29); Chloride 93 mmol/L (98-107); Estimated GFR 9; Glucose 139 mg/dL (70-105); Potassium 5.6 mmol/L (3.5-5.1); Sodium 129 mmol/L (136-145)
[2023-02-28] MEDS ORDERED: Metoprolol Tartrate 5 MG/5 ML VIAL IVP SCH (03:30)
[2023-02-28] MEDS: Lactated Ringer's 1,000 ML IV SCH (03:56)
[2023-02-28] MEDS ORDERED: Nitroglycerin 50 MG/250 ML BOT 250 ML IVPB SCH (04:00)
[2023-02-28] MEDS: Morphine 2 MG/ML VIAL SLOW IVP PRN ×3 (06:14→18:41)
[2023-02-28] MEDS ORDERED: LOKELMA 10 GM PACKET PO SCH (07:00)
[2023-02-28 07:30] LABS: #Basophils 0.1 thou/uL (0.0-0.2); #Eosinphils 0.2 thou/uL (0.0-0.7); #Monocytes 1.6 thou/uL (0.11-0.59); #Neutrophils 16.6 thou/uL (1.40-6.50); %Basophils 0.3 % (0.0-1.0); %Eosinophils 1.2 % (0.0-10.0); %Lymphocytes 6.7 % (21.0-51.0); %Monocytes 7.9 % (0.0-10.0); %Neutrophils 82.7 % (42.0-75.0); Hemoglobin 10.5 g/dL (12.0-16.0); Mean Corpuscular HGB CONC 31.8 g/dL (32.0-36.0); Mean Corpuscular Hemoglobin 31.3 pg (27.0-31.0); Mean Corpuscular Volume 98.5 fl (78.0-98.0); Mean Platelet Volume 9.9 fL (7.4-10.4); Platelet Count 176 10x3/uL (130-400); RBC Distribution Width 13.5 % (11.5-14.5); Red Blood Cell (RBC) Count 3.35 mill/uL (4.20-5.40)
[2023-02-28 07:48] LABS: Troponin I 10.986 ng/mL (< 0.028)
[2023-02-28 08:05] LABS: Anion Gap 20 mmol/L (10-20); BUN (Urea Nitrogen) 37 mg/dL (9.8-20.1); Calc. Creatinine Clearance 27 mL/min (70-130); Calcium 8.9 mg/dL (7.8-10.44); Carbon Dioxide 24 mmol/L (22-29); Chloride 95 mmol/L (98-107); Estimated GFR 9; Glucose 154 mg/dL (70-105); Potassium 4.3 mmol/L (3.5-5.1); Sodium 135 mmol/L (136-145)
[2023-02-28] MEDS ORDERED: Iopamidol 370 76% 100 ML VIAL ONE (08:53)
[2023-02-28] MEDS: Aspirin 81 mg Enteric Coated Tablet PO SCH (08:54)
[2023-02-28] MEDS: Carvedilol 6.25 MG TAB PO SCH ×2 (08:54→21:38)
[2023-02-28] MEDS: Sacubitril 49 MG/Valsartan 51 MG TABLET PO SCH ×2 (08:54→21:38)
[2023-02-28] MEDS: Famotidine/PF 20 mg/2ml Vial SLOW IVP SCH (08:54)
[2023-02-28] MEDS: Ondansetron PF 4 MG/2 ML Vial IVP PRN ×3 (09:19→21:38)
[2023-02-28] MEDS: Sevelamer Carbonate 800 MG TAB PO SCH ×3 (09:22→18:49)
[2023-02-28] MEDS: Heparin 10,000 UNITS/ 10 ML VIAL SLOW IVP SCH (11:21)
[2023-02-28] MEDS ORDERED: Communication Order-Pharmacy FS SCH (11:30)
[2023-02-28] MEDS ORDERED: Lidocaine 1% (PF) 30 ML VIAL ONE (13:04)
[2023-02-28] MEDS ORDERED: fentaNYL 50 mcg/mL 1 mL Vial ONE (13:49)
[2023-02-28] MEDS ORDERED: Midazolam HCl 2 mg/2 ml Vial ONE (13:49)
[2023-02-28] MEDS ORDERED: Heparin 10,000 UNITS/ 10 ML VIAL ONE (14:02)
[2023-02-28] MEDS ORDERED: Clopidogrel Bisulfate 300 MG TAB ONE ×2 (14:14→14:38)
[2023-02-28 16:18] LABS: Platelet Count 207 10x3/uL (130-400)
[2023-02-28] MEDS: Cefepime 0.5 GM, Admixture Fee 1 EACH in Sodium Chloride 0.9% 100 ML IVPB SCH (19:50)
[2023-02-28] MEDS: HYDROcodone/Acetaminophen 10/325 mg Tablet PO PRN (21:38)
[2023-02-28] MEDS: Rosuvastatin 10 MG TAB PO SCH (21:38)
[2023-03-01 04:43] LABS: #Basophils 0.1 thou/uL (0.0-0.2); #Eosinphils 0.1 thou/uL (0.0-0.7); #Monocytes 1.3 thou/uL (0.11-0.59); #Neutrophils 12.1 thou/uL (1.40-6.50); %Basophils 0.5 % (0.0-1.0); %Eosinophils 0.9 % (0.0-10.0); %Monocytes 8.7 % (0.0-10.0); %Neutrophils 81.9 % (42.0-75.0); Hemoglobin 9.4 g/dL (12.0-16.0); Mean Corpuscular Hemoglobin 31.3 pg (27.0-31.0); Mean Platelet Volume 9.9 fL (7.4-10.4); Platelet Count 187 10x3/uL (130-400); RBC Distribution Width 13.2 % (11.5-14.5); White Blood Cell (WBC) Count 14.8 10x3/uL (4.8-10.8)
[2023-03-01 05:06] LABS: ALT (SGPT) 30 U/L (8-55); AST (SGOT) 26 U/L (5-34); Alkaline Phosphatase 126 U/L (40-110); Anion Gap 18 mmol/L (10-20); BUN (Urea Nitrogen) 47 mg/dL (9.8-20.1); Bilirubin, Total 0.4 mg/dL (0.2-1.2); Calc. Creatinine Clearance 23 mL/min (70-130); Carbon Dioxide 25 mmol/L (22-29); Chloride 94 mmol/L (98-107); Estimated GFR 8; Globulin 3.5 g/dL (2.4-3.5); Glucose 121 mg/dL (70-105); Potassium 4.5 mmol/L (3.5-5.1); Protein, Total 6.5 g/dL (6.0-8.3); Sodium 132 mmol/L (136-145)
[2023-03-01] MEDS: Sevelamer Carbonate 800 MG TAB PO SCH ×3 (08:57→18:10)
[2023-03-01] MEDS: Senokot S 8.6-50 MG TAB PO SCH ×2 (08:57→20:10)
[2023-03-01] MEDS: Aspirin 81 mg Enteric Coated Tablet PO SCH (08:57)
[2023-03-01] MEDS: Carvedilol 6.25 MG TAB PO SCH ×2 (08:58→20:10)
[2023-03-01] MEDS: levETIRAcetam 500 MG TAB PO SCH (08:58)
[2023-03-01] MEDS: Famotidine/PF 20 mg/2ml Vial SLOW IVP SCH (08:58)
[2023-03-01] MEDS ORDERED: LOKELMA 10 GM PACKET PO SCH (09:00)
[2023-03-01 09:54] LABS: Vancomycin, Random 16.8 ug/mL (See Comment)
[2023-03-01] MEDS: Sacubitril 49 MG/Valsartan 51 MG TABLET PO SCH ×2 (09:58→20:10)
[2023-03-01] MEDS: Polyethylene Glycol 3350 17 GM Packet PO SCH (09:58)
[2023-03-01] MEDS ORDERED: Clopidogrel Bisulfate 75 MG TAB PO SCH (12:00)
[2023-03-01] MEDS ORDERED: Vancomycin 1 GM in Premix Bag 1 BAG IVPB SCH (17:00)
[2023-03-01] MEDS: Cefepime 0.5 GM, Admixture Fee 1 EACH in Sodium Chloride 0.9% 100 ML IVPB SCH (18:48)
[2023-03-01] MEDS: Rosuvastatin 10 MG TAB PO SCH (20:11)
[2023-03-01] MEDS: HYDROcodone/Acetaminophen 10/325 mg Tablet PO PRN (22:34)
[2023-03-02 04:47] LABS: #Basophils 0.1 thou/uL (0.0-0.2); #Eosinphils 0.3 thou/uL (0.0-0.7); #Monocytes 1.2 thou/uL (0.11-0.59); #Neutrophils 8.2 thou/uL (1.40-6.50); %Basophils 0.5 % (0.0-1.0); %Eosinophils 2.4 % (0.0-10.0); %Lymphocytes 11.8 % (21.0-51.0); %Monocytes 10.7 % (0.0-10.0); %Neutrophils 73.7 % (42.0-75.0); Hemoglobin 9.6 g/dL (12.0-16.0); Mean Corpuscular HGB CONC 32.1 g/dL (32.0-36.0); Mean Corpuscular Volume 96.5 fl (78.0-98.0); Mean Platelet Volume 9.7 fL (7.4-10.4); Platelet Count 180 10x3/uL (130-400); White Blood Cell (WBC) Count 11.1 10x3/uL (4.8-10.8)
[2023-03-02 05:08] LABS: ALT (SGPT) 23 U/L (8-55); AST (SGOT) 16 U/L (5-34); Albumin 3.1 g/dL (3.5-5.0); Alkaline Phosphatase 113 U/L (40-110); Anion Gap 15 mmol/L (10-20); BUN (Urea Nitrogen) 25 mg/dL (9.8-20.1); Bilirubin, Total 0.3 mg/dL (0.2-1.2); Calc. Creatinine Clearance 32 mL/min (70-130); Carbon Dioxide 28 mmol/L (22-29); Chloride 92 mmol/L (98-107); Estimated GFR 12; Globulin 3.5 g/dL (2.4-3.5); Glucose 87 mg/dL (70-105); Potassium 3.5 mmol/L (3.5-5.1); Protein, Total 6.6 g/dL (6.0-8.3); Sodium 131 mmol/L (136-145)
[2023-03-02] MEDS: HYDROcodone/Acetaminophen 10/325 mg Tablet PO PRN ×2 (06:17→21:42)
[2023-03-02] MEDS: levETIRAcetam 500 MG TAB PO SCH ×2 (09:17→09:19)
[2023-03-02] MEDS: Aspirin 81 mg Enteric Coated Tablet PO SCH (09:18)
[2023-03-02] MEDS: Carvedilol 6.25 MG TAB PO SCH ×2 (09:18→21:40)
[2023-03-02] MEDS: Sevelamer Carbonate 800 MG TAB PO SCH ×3 (09:18→17:50)
[2023-03-02] MEDS: Senokot S 8.6-50 MG TAB PO SCH ×2 (09:18→21:41)
[2023-03-02] MEDS: Famotidine/PF 20 mg/2ml Vial SLOW IVP SCH (09:20)
[2023-03-02] MEDS: Morphine 2 MG/ML VIAL SLOW IVP PRN (09:20)
[2023-03-02] MEDS: Sacubitril 49 MG/Valsartan 51 MG TABLET PO SCH ×2 (09:20→21:41)
[2023-03-02] MEDS: Clopidogrel Bisulfate 75 MG TAB PO SCH (09:20)
[2023-03-02] MEDS: Ondansetron PF 4 MG/2 ML Vial IVP PRN (09:21)
[2023-03-02] MEDS: Polyethylene Glycol 3350 17 GM Packet PO SCH (09:32)
[2023-03-02] MEDS ORDERED: Ondansetron ODT 4 MG TAB PO SCH (10:00)
[2023-03-02] MEDS: Doxycycline 100 MG CAP PO SCH (21:39)
[2023-03-02] MEDS: Rosuvastatin 10 MG TAB PO SCH (21:41)
[2023-03-02] MEDS: Scopolamine 1.5 mg/72 hour Patch TD SCH (21:42)
[2023-03-03 04:48] LABS: #Basophils 0.1 thou/uL (0.0-0.2); #Eosinphils 0.4 thou/uL (0.0-0.7); #Monocytes 1.4 thou/uL (0.11-0.59); #Neutrophils 8.6 thou/uL (1.40-6.50); %Basophils 0.6 % (0.0-1.0); %Eosinophils 2.8 % (0.0-10.0); %Monocytes 11.3 % (0.0-10.0); %Neutrophils 68.1 % (42.0-75.0); Hemoglobin 10.2 g/dL (12.0-16.0); Mean Corpuscular HGB CONC 32.3 g/dL (32.0-36.0); Mean Platelet Volume 9.6 fL (7.4-10.4); Platelet Count 223 10x3/uL (130-400); Red Blood Cell (RBC) Count 3.29 mill/uL (4.20-5.40); White Blood Cell (WBC) Count 12.7 10x3/uL (4.8-10.8)
[2023-03-03 05:09] LABS: Albumin 3.1 g/dL (3.5-5.0); Anion Gap 18 mmol/L (10-20); BUN (Urea Nitrogen) 35 mg/dL (9.8-20.1); BUN/Creatinine Ratio 6.18; Calc. Creatinine Clearance 24 mL/min (70-130); Calcium 9.3 mg/dL (7.8-10.44); Carbon Dioxide 26 mmol/L (22-29); Chloride 92 mmol/L (98-107); Estimated GFR 8; Glucose 86 mg/dL (70-105); Phosphorus 5.9 mg/dL (2.3-4.7); Potassium 3.7 mmol/L (3.5-5.1); Sodium 132 mmol/L (136-145)
[2023-03-03 07:08] LABS: Vancomycin, Random 20.9 ug/mL (See Comment)
[2023-03-03] MEDS ORDERED: Heparin 10,000 UNITS/ 10 ML VIAL ONE (13:55)
[2023-03-03] MEDS: Carvedilol 6.25 MG TAB PO SCH ×2 (14:24→20:36)
[2023-03-03] MEDS: Aspirin 81 mg Enteric Coated Tablet PO SCH (14:24)
[2023-03-03] MEDS: Sevelamer Carbonate 800 MG TAB PO SCH ×2 (14:24→17:07)
[2023-03-03] MEDS: Clopidogrel Bisulfate 75 MG TAB PO SCH (14:24)
[2023-03-03] MEDS: Polyethylene Glycol 3350 17 GM Packet PO SCH (14:25)
[2023-03-03] MEDS: Famotidine/PF 20 mg/2ml Vial SLOW IVP SCH (14:25)
[2023-03-03] MEDS: levETIRAcetam 500 MG TAB PO SCH (14:25)
[2023-03-03] MEDS: Senokot S 8.6-50 MG TAB PO SCH ×2 (14:25→20:36)
[2023-03-03] MEDS: Sacubitril 49 MG/Valsartan 51 MG TABLET PO SCH ×2 (14:25→20:35)
[2023-03-03] MEDS: Doxycycline 100 MG CAP PO SCH ×2 (14:25→20:36)
[2023-03-03] MEDS: Heparin 5,000 UNITS/ML VIAL SC SCH ×2 (16:00→20:35)
[2023-03-03] MEDS: HYDROcodone/Acetaminophen 10/325 mg Tablet PO PRN (16:01)
[2023-03-03] MEDS ORDERED: Vancomycin HCl 500 MG in Sodium Chloride 0.9% 100 ML IVPB SCH (17:00)
[2023-03-03] MEDS: Rosuvastatin 10 MG TAB PO SCH (20:35)
[2023-03-04] MEDS: Ondansetron PF 4 MG/2 ML Vial IVP PRN ×3 (04:04→20:57)
[2023-03-04] MEDS: HYDROcodone/Acetaminophen 10/325 mg Tablet PO PRN ×3 (04:04→20:44)
[2023-03-04 05:28] LABS: #Basophils 0.1 thou/uL (0.0-0.2); #Eosinphils 0.3 thou/uL (0.0-0.7); #Monocytes 0.8 thou/uL (0.11-0.59); #Neutrophils 6.3 thou/uL (1.40-6.50); %Basophils 0.7 % (0.0-1.0); %Eosinophils 3.6 % (0.0-10.0); %Lymphocytes 17.8 % (21.0-51.0); %Monocytes 8.9 % (0.0-10.0); %Neutrophils 67.9 % (42.0-75.0); Hemoglobin 10.9 g/dL (12.0-16.0); Mean Corpuscular HGB CONC 32.7 g/dL (32.0-36.0); Mean Corpuscular Hemoglobin 31.4 pg (27.0-31.0); Mean Platelet Volume 9.4 fL (7.4-10.4); Platelet Count 239 10x3/uL (130-400); RBC Distribution Width 13.1 % (11.5-14.5); Red Blood Cell (RBC) Count 3.47 mill/uL (4.20-5.40); White Blood Cell (WBC) Count 9.2 10x3/uL (4.8-10.8)
[2023-03-04 05:54] LABS: Albumin 3.1 g/dL (3.5-5.0); Anion Gap 17 mmol/L (10-20); BUN (Urea Nitrogen) 21 mg/dL (9.8-20.1); BUN/Creatinine Ratio 5.32; Calc. Creatinine Clearance 34 mL/min (70-130); Calcium 9.4 mg/dL (7.8-10.44); Carbon Dioxide 25 mmol/L (22-29); Chloride 97 mmol/L (98-107); Estimated GFR 13; Glucose 93 mg/dL (70-105); Phosphorus 4.6 mg/dL (2.3-4.7); Potassium 3.6 mmol/L (3.5-5.1); Sodium 135 mmol/L (136-145)
[2023-03-04] MEDS ORDERED: Vancomycin Dialysis Sliding Scale (Wt > 99) FS SCH (09:00)
[2023-03-04] MEDS ORDERED: VANCOMYCIN IVPB PRN (09:00)
[2023-03-04] MEDS ORDERED: Vancomycin HCl 500 MG in Sodium Chloride 0.9% 100 ML IVPB SCH (09:15)
[2023-03-04] MEDS: Aspirin 81 mg Enteric Coated Tablet PO SCH (09:20)
[2023-03-04] MEDS: Carvedilol 6.25 MG TAB PO SCH ×2 (09:21→20:43)
[2023-03-04] MEDS: levETIRAcetam 500 MG TAB PO SCH (09:21)
[2023-03-04] MEDS: Senokot S 8.6-50 MG TAB PO SCH ×2 (09:21→20:44)
[2023-03-04] MEDS: Clopidogrel Bisulfate 75 MG TAB PO SCH (09:22)
[2023-03-04] MEDS: tiZANidine HCl 4 MG TAB PO PRN ×2 (09:22→16:00)
[2023-03-04] MEDS: Polyethylene Glycol 3350 17 GM Packet PO SCH (09:23)
[2023-03-04] MEDS: Sacubitril 49 MG/Valsartan 51 MG TABLET PO SCH ×2 (09:23→20:54)
[2023-03-04] MEDS: Heparin 5,000 UNITS/ML VIAL SC SCH ×3 (09:24→20:54)
[2023-03-04] MEDS: cefTRIAXone\\ROCEPHIN 1 GM in Sodium Chloride 0.9% 100 ML IVPB SCH (09:24)
[2023-03-04] MEDS: Sevelamer Carbonate 800 MG TAB PO SCH ×3 (09:24→18:11)
[2023-03-04] MEDS: Rosuvastatin 10 MG TAB PO SCH (20:43)
[2023-03-05 06:48] LABS: #Basophils 0.1 thou/uL (0.0-0.2); #Eosinphils 0.4 thou/uL (0.0-0.7); #Monocytes 0.7 thou/uL (0.11-0.59); #Neutrophils 5.4 thou/uL (1.40-6.50); %Basophils 0.9 % (0.0-1.0); %Eosinophils 4.9 % (0.0-10.0); %Lymphocytes 16.6 % (21.0-51.0); %Monocytes 8.7 % (0.0-10.0); %Neutrophils 67.1 % (42.0-75.0); Hemoglobin 11.6 g/dL (12.0-16.0); Mean Corpuscular Hemoglobin 31.1 pg (27.0-31.0); Mean Corpuscular Volume 97.3 fl (78.0-98.0); Mean Platelet Volume 9.1 fL (7.4-10.4); Platelet Count 240 10x3/uL (130-400); RBC Distribution Width 13.2 % (11.5-14.5); Red Blood Cell (RBC) Count 3.73 mill/uL (4.20-5.40)
[2023-03-05 07:54] LABS: Albumin 3.3 g/dL (3.5-5.0); Anion Gap 20 mmol/L (10-20); BUN (Urea Nitrogen) 32 mg/dL (9.8-20.1); BUN/Creatinine Ratio 5.64; Calc. Creatinine Clearance 23 mL/min (70-130); Calcium 9.9 mg/dL (7.8-10.44); Carbon Dioxide 22 mmol/L (22-29); Chloride 95 mmol/L (98-107); Estimated GFR 8; Glucose 100 mg/dL (70-105); Phosphorus 5.7 mg/dL (2.3-4.7); Potassium 3.6 mmol/L (3.5-5.1); Sodium 133 mmol/L (136-145)
[2023-03-05] MEDS: Senokot S 8.6-50 MG TAB PO SCH ×2 (08:56→20:31)
[2023-03-05] MEDS: Carvedilol 6.25 MG TAB PO SCH ×2 (08:56→20:31)
[2023-03-05] MEDS: cefTRIAXone\\ROCEPHIN 1 GM in Sodium Chloride 0.9% 100 ML IVPB SCH (08:57)
[2023-03-05] MEDS: levETIRAcetam 500 MG TAB PO SCH (08:57)
[2023-03-05] MEDS: Aspirin 81 mg Enteric Coated Tablet PO SCH (08:57)
[2023-03-05] MEDS: Polyethylene Glycol 3350 17 GM Packet PO SCH ×2 (08:58→18:29)
[2023-03-05] MEDS: Sevelamer Carbonate 800 MG TAB PO SCH ×3 (08:58→16:24)
[2023-03-05] MEDS: Clopidogrel Bisulfate 75 MG TAB PO SCH (08:58)
[2023-03-05] MEDS: Sacubitril 49 MG/Valsartan 51 MG TABLET PO SCH ×2 (08:58→20:32)
[2023-03-05] MEDS: Heparin 5,000 UNITS/ML VIAL SC SCH ×3 (08:58→20:32)
[2023-03-05] MEDS: Ondansetron PF 4 MG/2 ML Vial IVP PRN ×2 (09:04→18:35)
[2023-03-05] MEDS: HYDROcodone/Acetaminophen 10/325 mg Tablet PO PRN ×2 (09:04→18:34)
[2023-03-05] MEDS ORDERED: Nystatin Powder 15 GM BOT TOP PRN (14:27)
[2023-03-05] MEDS: Scopolamine 1.5 mg/72 hour Patch TD SCH (20:30)
[2023-03-05] MEDS: Rosuvastatin 10 MG TAB PO SCH (20:31)
[2023-03-05] MEDS: tiZANidine HCl 4 MG TAB PO PRN (20:31)
[2023-03-06] MEDS: HYDROcodone/Acetaminophen 10/325 mg Tablet PO PRN ×2 (05:07→15:22)
[2023-03-06] MEDS: Ondansetron PF 4 MG/2 ML Vial IVP PRN ×2 (05:08→15:46)
[2023-03-06] MEDS: tiZANidine HCl 4 MG TAB PO PRN (05:08)
[2023-03-06] MEDS ORDERED: Heparin 10,000 UNITS/ 10 ML VIAL ONE (07:39)
[2023-03-06 07:40] LABS: Vancomycin, Random 17.2 ug/mL (See Comment)
[2023-03-06 07:53] LABS: Albumin 3.3 g/dL (3.5-5.0); Anion Gap 20 mmol/L (10-20); BUN (Urea Nitrogen) 39 mg/dL (9.8-20.1); BUN/Creatinine Ratio 5.28; Calc. Creatinine Clearance 18 mL/min (70-130); Calcium 9.9 mg/dL (7.8-10.44); Carbon Dioxide 23 mmol/L (22-29); Chloride 95 mmol/L (98-107); Estimated GFR 6; Glucose 116 mg/dL (70-105); Phosphorus 7.1 mg/dL (2.3-4.7); Potassium 3.7 mmol/L (3.5-5.1); Sodium 134 mmol/L (136-145)
[2023-03-06] MEDS: Heparin 5,000 UNITS/ML VIAL SC SCH ×4 (08:06→21:13)
[2023-03-06] MEDS: Sevelamer Carbonate 800 MG TAB PO SCH ×3 (08:14→17:52)
[2023-03-06] MEDS ORDERED: Metoclopramide HCl 10 MG/2 ML VIAL IVP SCH (12:30)
[2023-03-06] MEDS: Cinacalcet HCl 30 MG TAB PO SCH ×2 (15:23→16:01)
[2023-03-06] MEDS: Carvedilol 6.25 MG TAB PO SCH ×2 (15:37→21:11)
[2023-03-06] MEDS: Aspirin 81 mg Enteric Coated Tablet PO SCH ×2 (15:37→15:59)
[2023-03-06] MEDS: levETIRAcetam 500 MG TAB PO SCH (15:38)
[2023-03-06] MEDS: Clopidogrel Bisulfate 75 MG TAB PO SCH ×2 (15:39→16:00)
[2023-03-06] MEDS: Senokot S 8.6-50 MG TAB PO SCH ×2 (15:39→21:12)
[2023-03-06] MEDS: Polyethylene Glycol 3350 17 GM Packet PO SCH ×2 (15:39→21:13)
[2023-03-06] MEDS: Sacubitril 49 MG/Valsartan 51 MG TABLET PO SCH ×2 (15:40→21:12)
[2023-03-06] MEDS ORDERED: Metoclopramide HCl 10 MG TAB PO SCH (17:00)
[2023-03-06] MEDS ORDERED: Vancomycin 1 GM in Premix Bag 1 BAG IVPB SCH (17:00)
[2023-03-06] MEDS: Metoclopramide 10 MG/10 ML UDCUP PO SCH ×2 (17:52→21:11)
[2023-03-06] MEDS: cefTRIAXone\\ROCEPHIN 1 GM in Sodium Chloride 0.9% 100 ML IVPB SCH (18:05)
[2023-03-06] MEDS: AMOXicillin 250 MG CAP PO SCH (21:12)
[2023-03-06] MEDS: Rosuvastatin 10 MG TAB PO SCH (21:12)
[2023-03-06] MEDS: Doxycycline 100 MG CAP PO SCH (21:12)
[2023-03-07] MEDS: HYDROcodone/Acetaminophen 10/325 mg Tablet PO PRN ×3 (02:16→20:41)
[2023-03-07] MEDS: Ondansetron PF 4 MG/2 ML Vial IVP PRN ×3 (02:16→20:43)
[2023-03-07 06:43] LABS: #Basophils 0.1 thou/uL (0.0-0.2); #Eosinphils 0.2 thou/uL (0.0-0.7); #Monocytes 0.7 thou/uL (0.11-0.59); #Neutrophils 5.2 thou/uL (1.40-6.50); %Basophils 1.1 % (0.0-1.0); %Eosinophils 2.7 % (0.0-10.0); %Lymphocytes 21.8 % (21.0-51.0); %Monocytes 8.2 % (0.0-10.0); %Neutrophils 64.8 % (42.0-75.0); Hemoglobin 10.8 g/dL (12.0-16.0); Mean Corpuscular HGB CONC 32.4 g/dL (32.0-36.0); Mean Corpuscular Hemoglobin 31.2 pg (27.0-31.0); Mean Corpuscular Volume 96.2 fl (78.0-98.0); Platelet Count 270 10x3/uL (130-400); RBC Distribution Width 13.2 % (11.5-14.5); Red Blood Cell (RBC) Count 3.46 mill/uL (4.20-5.40)
[2023-03-07 07:13] LABS: Albumin 3.3 g/dL (3.5-5.0); Anion Gap 28 mmol/L (10-20); BUN (Urea Nitrogen) 19 mg/dL (9.8-20.1); BUN/Creatinine Ratio 4.13; Calc. Creatinine Clearance 27 mL/min (70-130); Calcium 9.7 mg/dL (7.8-10.44); Carbon Dioxide 17 mmol/L (22-29); Chloride 96 mmol/L (98-107); Estimated GFR 11; Glucose 118 mg/dL (70-105); Potassium 3.7 mmol/L (3.5-5.1); Sodium 137 mmol/L (136-145)
[2023-03-07] MEDS ORDERED: Glycerin Adult Supp. (24 ct jar) PR SCH (08:15)
[2023-03-07] MEDS: Metoclopramide 10 MG/10 ML UDCUP PO SCH ×4 (08:58→23:15)
[2023-03-07] MEDS: Polyethylene Glycol 3350 17 GM Packet PO SCH ×2 (08:58→20:38)
[2023-03-07] MEDS: levETIRAcetam 500 MG TAB PO SCH (08:59)
[2023-03-07] MEDS: Clopidogrel Bisulfate 75 MG TAB PO SCH (08:59)
[2023-03-07] MEDS: Carvedilol 6.25 MG TAB PO SCH ×2 (08:59→23:16)
[2023-03-07] MEDS: Doxycycline 100 MG CAP PO SCH ×2 (08:59→23:15)
[2023-03-07] MEDS: Cinacalcet HCl 30 MG TAB PO SCH (08:59)
[2023-03-07] MEDS: Aspirin 81 mg Enteric Coated Tablet PO SCH (08:59)
[2023-03-07] MEDS: Senokot S 8.6-50 MG TAB PO SCH ×2 (08:59→23:16)
[2023-03-07] MEDS: Sevelamer Carbonate 800 MG TAB PO SCH ×3 (08:59→18:02)
[2023-03-07] MEDS: Heparin 5,000 UNITS/ML VIAL SC SCH ×3 (09:00→23:16)
[2023-03-07] MEDS: Sacubitril 49 MG/Valsartan 51 MG TABLET PO SCH ×2 (09:00→23:16)
[2023-03-07 13:56] LABS: Anion Gap 27 mmol/L (10-20); BUN (Urea Nitrogen) 21 mg/dL (9.8-20.1); Calc. Creatinine Clearance 24 mL/min (70-130); Calcium 10.1 mg/dL (7.8-10.44); Carbon Dioxide 21 mmol/L (22-29); Chloride 93 mmol/L (98-107); Estimated GFR 9; Glucose 133 mg/dL (70-105); Sodium 137 mmol/L (136-145)
[2023-03-07] MEDS ORDERED: Bisacodyl 10 MG SUPP PR SCH (14:15)
[2023-03-07 17:19] LABS: Actual Bicarbonate (HCO3v) 22.1 mEq/L (22-28); Analyzer IN Cardio ER; Base Excess -3.3 mEq/L (-2.0 to +3.0); Calcium, Ionized (venous) 1.09 mmol/L (1.16-1.32); Chloride (VBG) 93 mmol/L (98-106); Hematocrit-VBG 36 % (36.0-47.0); Hemoglobin (Hb) 12.3 g/dL (11.7-16.0); Potassium (VBG) 3.66 mmol/L (3.70-5.30); Sodium 133.9 mmol/L (133-146); pH (venous) 7.352 (7.32-7.43)
[2023-03-07] MEDS: AMOXicillin 250 MG CAP PO SCH (23:15)
[2023-03-07] MEDS: Rosuvastatin 10 MG TAB PO SCH (23:16)
[2023-03-08 07:28] LABS: Vancomycin, Random 22.9 ug/mL (See Comment)
[2023-03-08 07:33] VITALS: TEMP 97.7
[2023-03-08] MEDS: Ondansetron PF 4 MG/2 ML Vial IVP PRN (07:38)
[2023-03-08] MEDS: HYDROcodone/Acetaminophen 10/325 mg Tablet PO PRN (07:38)
[2023-03-08] MEDS: Metoclopramide 10 MG/10 ML UDCUP PO SCH ×2 (07:59→13:45)
[2023-03-08] MEDS: Sevelamer Carbonate 800 MG TAB PO SCH ×2 (07:59→14:13)
[2023-03-08] MEDS: Heparin 5,000 UNITS/ML VIAL SC SCH ×2 (07:59→14:19)
[2023-03-08] MEDS: Senokot S 8.6-50 MG TAB PO SCH (08:00)
[2023-03-08] MEDS: Polyethylene Glycol 3350 17 GM Packet PO SCH (08:00)
[2023-03-08] MEDS: Cinacalcet HCl 30 MG TAB PO SCH (08:37)
[2023-03-08 09:40] LABS: Anion Gap 21 mmol/L (10-20); BUN (Urea Nitrogen) 17 mg/dL (9.8-20.1); Calc. Creatinine Clearance 30 mL/min (70-130); Calcium 9.5 mg/dL (7.8-10.44); Carbon Dioxide 23 mmol/L (22-29); Chloride 96 mmol/L (98-107); Estimated GFR 12; Glucose 115 mg/dL (70-105); Sodium 137 mmol/L (136-145)
[2023-03-08 11:06] VITALS: BMI 41.8
[2023-03-08] MEDS ORDERED: Ondansetron ODT 4 MG TAB PO SCH (13:30)
[2023-03-08] MEDS: Aspirin 81 mg Enteric Coated Tablet PO SCH (14:12)
[2023-03-08] MEDS: Carvedilol 6.25 MG TAB PO SCH (14:12)
[2023-03-08] MEDS: Clopidogrel Bisulfate 75 MG TAB PO SCH (14:12)
[2023-03-08] MEDS: Sacubitril 49 MG/Valsartan 51 MG TABLET PO SCH (14:13)
[2023-03-08] MEDS: levETIRAcetam 500 MG TAB PO SCH (14:17)
[2023-03-08] MEDS: Doxycycline 100 MG CAP PO SCH (14:18)
[2023-03-08] MEDS ORDERED: Potassium Chloride 20 MEQ TAB PO SCH (15:00)
[2023-03-08 16:37] VITALS: BP 152/72
== END 2023-03-08 17:26 | DRG 246 ==
LOC: ERS 11:19 → NEURO 15:48 → CCU 02-28 02:46 → 2NO 03-01 22:18 → T4-B 03-03 18:32
PROVIDERS: ADMIT Family Medicine; ATTEND Family Medicine
PROC: 027034Z Dilation of Coronary Artery, One Artery with Drug-eluting Intraluminal Device, Percutaneous Approach (ICD-10-PCS; principal; 2023-02-28)
PROC: 4A023N7 Measurement of Cardiac Sampling and Pressure, Left Heart, Percutaneous Approach (ICD-10-PCS; 2023-02-28)
PROC: B2111ZZ Fluoroscopy of Multiple Coronary Arteries using Low Osmolar Contrast (ICD-10-PCS; 2023-02-28)
PROC: 5A1D70Z Performance of Urinary Filtration, Intermittent, Less than 6 Hours Per Day (ICD-10-PCS; 2023-03-07)
DX: I21.4 Non-ST elevation (NSTEMI) myocardial infarction (principal); G92.8 Other toxic encephalopathy; N18.6 End stage renal disease; I50.32 Chronic diastolic (congestive) heart failure; N39.0 Urinary tract infection, site not specified; L03.115 Cellulitis of right lower limb; I13.2 Hypertensive heart and chronic kidney disease with heart failure and with stage 5 chronic kidney disease, or end stage renal disease; Z68.41 Body mass index [BMI] 40.0-44.9, adult; E87.1 Hypo-osmolality and hyponatremia; E66.01 Morbid (severe) obesity due to excess calories; M79.7 Fibromyalgia; E11.22 Type 2 diabetes mellitus with diabetic chronic kidney disease; G40.909 Epilepsy, unspecified, not intractable, without status epilepticus; Z96.652 Presence of left artificial knee joint; E87.5 Hyperkalemia; E11.51 Type 2 diabetes mellitus with diabetic peripheral angiopathy without gangrene; I25.10 Atherosclerotic heart disease of native coronary artery without angina pectoris; E11.649 Type 2 diabetes mellitus with hypoglycemia without coma; E11.628 Type 2 diabetes mellitus with other skin complications; E83.39 Other disorders of phosphorus metabolism; E11.21 Type 2 diabetes mellitus with diabetic nephropathy; D63.1 Anemia in chronic kidney disease; I45.10 Unspecified right bundle-branch block; E11.621 Type 2 diabetes mellitus with foot ulcer; L97.519 Non-pressure chronic ulcer of other part of right foot with unspecified severity; N25.0 Renal osteodystrophy; G89.4 Chronic pain syndrome; Z88.5 Allergy status to narcotic agent; Z88.8 Allergy status to other drugs, medicaments and biological substances; Z79.899 Other long term (current) drug therapy; Z99.2 Dependence on renal dialysis; Z79.4 Long term (current) use of insulin; Z79.82 Long term (current) use of aspirin; Z90.710 Acquired absence of both cervix and uterus; Z90.49 Acquired absence of other specified parts of digestive tract; Z98.890 Other specified postprocedural states; Z87.891 Personal history of nicotine dependence; Z89.512 Acquired absence of left leg below knee; K58.1 Irritable bowel syndrome with constipation
CPT/HCPCS: 36415; 36416; 51701; 70450; 71045; 80048; 80053; 80061; 80069; 80202; 80306; 81001; 82010; 82140; 82553; 82805; 83036; 83605; 83735; 83970; 84100; 84145; 84443; 84484; 85025; 85347; 85610; 85730; 86850; 86900; 86901; 87040; 87086; 90935; 92928; 93005; 93010; 93306; 93454; 96365; 96366; 96367; 96375; 97139; 99152; 99153; C1760; C1769; C1874; C1887; G0257; J0208; J0692; J0696; J1644; J1953; J2001; J2250; J2270; J2272; J2405; J3010; J3370; J3370-JW; J3490; J7050; J7120; Q0162; Q9967; S0028